=== PATIENT | female | born 1990 | race Caucasian/White ===

== ENCOUNTER → 2018-04-27 11:31 | Outpatient (CLI) | payer MEDICAID, BC, SELFPAY | PROVIDERS: Family Provider Family Medicine; PCP Family Medicine; Referring Provider Family Medicine; Visit Provider Family Medicine | DX: R00.2 Palpitations (principal) | CPT/HCPCS: 93225; 93226 ==

== ENCOUNTER → 2020-10-31 | Outpatient (CLI) | payer BC, SELFPAY ==
[2020-02-29 14:49] VITALS: BMI 20.1
[2020-10-31 09:00] LABS: D-Dimer Quantitative (DVT/PE) <= 0.27 FEU/ug/m (0.27-0.49)
== END | disposition home or self-care (01) ==
LOC: LABSPEC 08:37
PROVIDERS: PCP Family Medicine; Visit Provider Family Medicine
DX: R07.9 Chest pain, unspecified (principal)
CPT/HCPCS: 85379

== ENCOUNTER → 2021-01-17 12:47 | Outpatient (CLI) | payer BC, SELFPAY ==
[2021-01-17 10:44] VITALS: BMI 20.1
[2021-01-18 20:11] LABS: Chlamydia By Nucleic Acid AMP Negative (Negative)
[2021-01-19 08:24] LABS: Gonococcus By Nucleic Acid AMP Negative (Negative)
== END ==
PROVIDERS: PCP Family Medicine; Visit Provider Obstetrics & Gynecology
DX: Z34.90 Encounter for supervision of normal pregnancy, unspecified, unspecified trimester (principal); Z11.3 Encounter for screening for infections with a predominantly sexual mode of transmission
CPT/HCPCS: 87086; 87088; 87491; 87591

== ENCOUNTER → 2021-02-08 | Outpatient (CLI) | payer BC, SELFPAY ==
[2021-02-08 11:44] VITALS: BMI 20.1
[2021-02-08 15:07] LABS: Amphetamine Urine VISTA NEGATIVE (<1000 ng/mL); Barbiturate Urine VISTA NEGATIVE (< 200 ng/mL); Benzodiazepine Urine VISTA NEGATIVE (< 200 ng/mL); Cocaine Urine VISTA NEGATIVE (< 300 ng/mL); Ecstacy Urine VISTA NEGATIVE (< 500 ng/mL); Methadone Urine VISTA NEGATIVE (< 300 ng/mL); PCP Urine VISTA NEGATIVE (< 25 ng/mL); THC Urine VISTA NEGATIVE (< 50 ng/mL); Vista UDS pH Range 5
== END | disposition home or self-care (01) ==
LOC: LABSPEC 13:59
PROVIDERS: PCP Family Medicine; Referring Provider Obstetrics & Gynecology; Visit Provider Obstetrics & Gynecology
DX: Z34.90 Encounter for supervision of normal pregnancy, unspecified, unspecified trimester (principal)
CPT/HCPCS: 80307

== ENCOUNTER → 2021-02-14 07:57 | Outpatient (CLI) | payer BC, SELFPAY ==
[2021-02-08 11:44] VITALS: BMI 20.1
[2021-02-14 09:00] LABS: NATERA MAILED SPECIMEN
== END ==
PROVIDERS: PCP Family Medicine; Referring Provider Obstetrics & Gynecology; Visit Provider Obstetrics & Gynecology
DX: Z34.81 Encounter for supervision of other normal pregnancy, first trimester (principal); Z31.430 Encounter of female for testing for genetic disease carrier status for procreative management
CPT/HCPCS: 36415

== ENCOUNTER → 2021-02-23 07:54 | Outpatient (CLI) | payer BC, SELFPAY ==
[2021-02-14 08:24] VITALS: BMI 20.1
--- NOTE | 2021-02-23 07:55 | US_ITS ---
STUDY: ABDOMINAL ULTRASOUND REASON FOR EXAM: Female, 31 years old. Intermittent right upper quadrant and left upper quadrant pain. TECHNIQUE: Transabdominal ultrasound was performed with real-time and static lucia scale imaging. TECHNICAL QUALITY: Adequate. COMPARISON: None. FINDINGS: Liver: The liver measures 13.2 cm. There is increased echogenicity consistent with fatty infiltration. The bile ducts are within normal limits. There is hepatic color flow. The direction of portal flow is hepatopetal. There is no demonstrated mass lesion. Portal vein measurement: Gallbladder: Normal distended gallbladder. The gallbladder wall measures 2.3 mm. There is a negative sonographic Ramírez''s sign. There is no pericholecystic fluid. There are no gallstones. Common Bile Duct (C.B.D.): The common bile duct measures 2.6 mm. Pancreas: Normal size of the head, body and tail of the pancreas. There is normal echogenicity of the pancreas. There is no demonstrated pancreatic mass or cyst. Spleen: Normal size of the spleen. The spleen measures 8.1 cm x 3.77 x 3.5 cm. Right Kidney: Normal size of the right kidney. The right kidney measures 10.3 cm x 5.5 cm x 4.1 cm. Normal renal cortex. The right cortex measures 1.5 cm. There is no demonstrated renal mass or cyst. There is no right hydronephrosis. Left Kidney: Normal size of the left kidney. The left kidney measures 11 cm x 4.2 cm x 4.6 cm. Normal renal cortex. The left cortex measures 1.7 cm. There is no demonstrated renal mass or cyst. There is no left hydronephrosis. Aorta: Unremarkable I.V.C.: The IVC is patent. There is no ascites. US/Abdomen Complete IMPRESSION: Diffuse fatty infiltration of the liver. Electronically Signed: Dell Anna MD at 12:56 EDT , Service support ,
== END ==
PROVIDERS: PCP Family Medicine; Referring Provider Obstetrics & Gynecology; Visit Provider Obstetrics & Gynecology
DX: R10.9 Unspecified abdominal pain (principal)
CPT/HCPCS: 76700

== ENCOUNTER → 2021-03-02 15:17 | Outpatient (CLI) | payer BC, SELFPAY ==
[2021-03-02 15:42] LABS: Absolute Lymphocyte Count 1.55 X10^3/uL (0.83-4.51); Absolute Neutrophil Count 6.4 X10^3/uL (2.0-7.7); Basophil# 0.02 X10^3/uL; Basophil% 0.2 % (0-1); Eosinophil# 0.05 X10^3/uL; Eosinophils% 0.6 % (0-5); Hematocrit 36.1 % (37-47); Lymphocyte # 1.55 X10^3/ul (0.83-4.51); Lymphocyte % 18.2 % (19-41); Mean Corp Hgb Conc 30.5 g/dL (32-36); Mean Corpuscular Hgb 24.1 pg (27.0-32.0); Mean Corpuscular Volume 79.2 fL (81-99); Mean Platelet Vol. 9.8 fl (6.2-12.0); Monocyte# 0.49 X10^3/uL; Monocyte% 5.7 % (0-10); NRBC Flagged by Analyzer 0 % (0-5); Neutrophil # 6.38 X10^3/uL (2.7-7.7); Neutrophil % 74.8 % (47-70); Platelet Count 310 K/mm3 (150-450); RBC Distribution Width CV 14.7 % (11.6-14.6); RBC Distribution Width SD 42.4 fl (35.1-43.9); Red Blood Count 4.56 M/mm3 (4.2-5.4); White Blood Count 8.5 K/mm3 (4.4-11.0)
[2021-03-02 16:00] LABS: ALB/GLOB Ratio 0.7 RATIO (0.9-2.4); AST(SGOT) 15 U/L (15-37); Alanine Aminotransfer ALT/SGPT 15 U/L (13-56); Alkaline Phosphatase 50 U/L (45-117); Anion Gap 5 (5-15); BUN 7 mg/dL (7-18); BUN/Creat Ratio 11.8 RATIO (10-20); Calcium,Total 8.9 mg/dL (8.5-10.1); Chloride 106 mmol/L (98-107); EST Glomerular Filtration Rate 125 mL/min (>60); Est Glom Filt Rate - Afr Amer 151 mL/min (>60); Globulin 4.4 g/dL (2.2-4.2); Glucose 105 mg/dL (74-106); Potassium 4.1 mmol/L (3.5-5.1); Protein, Total 7.4 g/dL (6.4-8.2); Sodium Level 136 mmol/L (136-145)
[2021-03-03 09:39] LABS: HIV - WCH Non-Reactive (Nonreactive); Hepatitis B Surface Antigen Non-Reactive (Nonreactive); Hepatitis C Antibody Non-Reactive (Nonreactive); Rubella IgG Reactive (Nonreactive); Syphilis Antibodies Non-reactive
== END ==
PROVIDERS: Obstetrics & Gynecology; PCP Family Medicine; Referring Provider Obstetrics & Gynecology; Visit Provider Obstetrics & Gynecology
DX: Z34.90 Encounter for supervision of normal pregnancy, unspecified, unspecified trimester (principal); R10.2 Pelvic and perineal pain
CPT/HCPCS: 36415; 80053; 85025; 86703; 86762; 86780; 86803; 86850; 86900; 86901; 87340

== ENCOUNTER → 2021-04-12 13:43 | Outpatient (CLI) | payer BC, SELFPAY ==
--- NOTE | 2021-04-12 13:45 | US_ITS ---
STUDY: SECOND AND THIRD TRIMESTER OBSTETRICAL ULTRASOUND REASON FOR EXAM: Female, 31 years old. Anatomy. LMP: 11/24/2020. TECHNIQUE: Transabdominal TECHNICAL QUALITY: Adequate. PRIOR ULTRASOUND: None. FINDINGS: There is a single intrauterine fetus. The fetus is in a cephalic presentation. There is demonstrated cardiac activity with a heart rate of 134 bpm. There is a normal amniotic fluid volume. The largest amniotic fluid pocket measures 5.7 cm. The placenta is fundal and posterior and not low lying. There are Grade 0 placental changes. The cervix measures 3.9 cm in length. The bilateral adnexal regions are normal. BIOMETRY: BPD: 5.0 cm: 21 weeks, 1 days HC: 17.68 cm: 20 weeks, 1 days AC: 14.88 cm: 20 weeks, 1 days FL: 3.22 cm: 20 weeks, 0 days CI: 86.06 FL/BPD: 64.36 FL/HC: 18.2 FL/AC: 21.6 HC/AC: 1.19 age by current US: 20 weeks, 0 days. ROSE by current US: 08/30/2021.. Estimated weight: 341 grams, +/- 51 grams, 67 %. Age by LMP: 19 weeks, 6 days. ROSE by LMP: 08/31/2021. ANATOMY: Gender: Female Cranium: Normal lateral ventricles. Normal choroid plexus. Normal cerebellum. Normal cisterna magna. Normal face, nose and lips. Chest: Normal 4-chamber heart. Abdomen/Pelvis: Normal diaphragm. Normal stomach. Normal abdominal wall. Normal cord insertion. Normal 3 vessel cord. Normal kidneys. Normal bladder. Spine: Normal cervical spine. Normal thoracic spine. Normal lumbar spine. Normal sacrum. Extremities: Normal bilateral upper extremities. Normal bilateral lower extremities. US/OB Anatomy Scan IMPRESSION: 1. Live single intrauterine at 20 weeks, 0 days. ROSE is 01/27/2022. 2. EFW 341 g. 3. Adequate amniotic fluid. 4. Frontal and posterior grade 0 placenta. 5. VERTEX presentation. 6. No visualized anatomic abnormality. Electronically Signed: Jose M Cruz DO at 23:54 EDT Tel [phone], Service support ,
== END ==
PROVIDERS: PCP Family Medicine; Referring Provider Obstetrics & Gynecology; Visit Provider Obstetrics & Gynecology
DX: Z34.92 Encounter for supervision of normal pregnancy, unspecified, second trimester (principal)
CPT/HCPCS: 76805

== ENCOUNTER 2021-05-23 17:15 | Outpatient (CLI) | payer BC, SELFPAY ==
[2021-05-23 17:29] VITALS: BP 113/61; PULSE 82; TEMP 36.6
[2021-05-23 17:30] VITALS: BMI 29.3
--- NOTE | 2021-06-21 08:29 | OB.TRI.HP_ITS ---
HPI - General HPI Narrative DEMARCUS TAMEZ, is a 31 F who presents on 05/23/2021 or jun at 25 weeks gestation. Maternal Data Information ROSE Calculator Estimated Delivery Date Method Current WG Current Estimate 08/31/21 LMP (Certain) 29w 6d PFSH PFS Medical History (Updated 06/21/21 @ 08:[address] Carmelita Weeks, DO) Abnormal glucose Anemia Home Medications prenat.vits,bharati,ufa-tcht-scdvl 1 tab PO DAILY 01/11/21 [History Last Taken Unknown] promethazine 12.5 mg tablet 12.5 mg PO Q6H PRN #30 tab 01/11/21 [Rx Last Taken Unknown] ondansetron 4 mg disintegrating tablet 4 mg PO Q8H PRN #30 tab 01/17/21 [Rx Last Taken Unknown] lidocaine 5 % topical patch 1 patch TOPICAL DAILY #30 ea 03/07/21 [Rx Last Taken Unknown] docusate sodium 100 mg capsule 100 mg PO BID #60 cap 06/08/21 [Rx Last Taken Unknown] Allergy/AdvReac Type Severity Reaction Status Date / Time Penicillins Allergy Unknown Verified 06/08/21 13:46 Family History Mother Hypertension Father Diabetes Surgical History History of colposcopy Social History adopted: No household members: spouse and children number of children: 1 pets and animals: Yes (no litter box) pets and animals: cat(s) Smoking Status: Never smoker alcohol intake: never substance use type: does not use History 2 Elective abortions Hx Para 1 Spontaneous abortions Hx # Term Pregnancies Ectopic pregnancies Hx # Pregnancies 1 Multiple births # of living children 1 Past Pregnancies Del. Date Name GA/Weeks Outcome Route Bth Weight Infant Gen Labor Lgth Anesthesia Del Locatn Provider FOB 04/30/08 Shlomo 36 live - 6# Male epidural [facility] Taye Delivery Date: 04/30/08 Induced to preeclampsia, teen Cassidy Aguirre Visit Details Expected Delivery Route/Plan Labor Preferences- labor support person: [] labor intervention preferences: [] pain management options preferred: [] cut cord/dad catch: [] : [] PP control planned: [] discussed possible routes of delivery and associated risks: [] special requests: [] Plans covid status: non immune, counseled regarding risk of covid in vs vaccination and declined vaccination flu vaccine: declined tdap vaccine: [] rhogam: [] LARC form signed: [] Problem list reviewed and updated with the most current plan of care details and appropriate orders placed. Relevant counseling for the gestational age provided. Continue routine care and follow up unless otherwise noted in visit notes/problem list details OB Flowsheet Initial Weight: Not Recorded Date -?-?-?-?-?-?-?-?-?-?-?-?- EGA Weight BP Urine Prot -?-?-?-?-?-?-?-?-?-?-?-?- Glucose FHR FuHt Pres Dilation -?-?-?-?-?-?-?-?-?-?-?-?- Effaced St Visit Note 01/17/21 -?-?-?-?-?-?-?-?-?-?-?-?- 7w 5d 136 lb 106/74 -?-?-?-?-?-?-?-?-?-?-?-?- 160 -?-?-?-?-?-?-?-?-?-?-?-?- GP - CRL 13mm co nsistent with LMP. 02/08/21 -?-?-?-?-?-?-?-?-?-?-?-?- 10w 6d 136 lb 118/80 -?-?-?-?-?-?-?-?-?-?-?-?- 160 -?-?-?-?-?-?-?-?-?-?-?-?- -work in [employer] for discharge but states that she is here for cramping and nausea and having difficulty going to work. States issue with FMLA. Has 3 days prior to first visit here not covered and afraid of loss of job. She is worried that baby is not ok with cramping. Brief US active live IUP FHT 160. Denies vaginal bleeding. Note for work LMP and when sx can start which should help with job. Discussed nausea management. Declines 3rd rx. Is keeping fluids and food down. 02/14/21 -?-?-?-?-?-?-?-?-?-?-?-?- 11w 5d 139 lb 110/60 Negative -?-?-?-?-?-?-?-?-?-?-?-?- Negative 160 -?-?-?-?-?-?-?-?-?-?-?-?- -live IUP on U S. Nausea better. No VB,LOF. NIPT done, PNL omitted, enc redraw today. -live IUP on US. Nausea b emelia. No VB,LOF. NIPT done, PNL omitted, enc redraw today. start ASA 03/07/21 -?-?-?-?-?-?-?-?-?-?-?-?- 14w 5d 138 lb 6 oz 126/78 -?-?-?-?-?-?-?-?-?-?-?-?- 160 -?-?-?-?-?-?-?-?-?-?-?-?- GP - work in for RUQ pain. Has had nl labs. RUQ US showed fatty liver. On exam has point tenderness over rib. Discussed likely musculoskeletal. Encouraged conservative measures. GP - work in for RUQ pain. H as had nl labs. RUQ US showed fatty liver. On exam has point tenderness over rib. Discussed likely musculoskeletal. Encouraged conservative measures. Encouraged FU w/PCP 03/16/21 -?-?-?-?-?-?-?-?-?-?-?-?- 16w 0d 140 lb 100/62 Negative -?-?-?-?-?-?-?-?-?-?-?-?- Negative 150 -?-?-?-?-?-?-?-?-?-?-?-?- SM- nausea with some improve ment, still having RUQ pain after standing. discussed chiropractor evaluation. PT referral 04/06/21 -?-?-?-?-?-?-?-?-?-?-?-?- 19w 0d 146 lb 4 oz 118/74 Trac e -?-?-?-?-?-?-?-?-?-?-?-?- Negative 155 -?-?-?-?-?-?-?-?-?-?-?-?- GP - work in for syncopal episodes and continued pain. 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 Discussed can take FMLA, but only able to last 12w which could result in no maternity leave or termination. Plan to start FMLA now 04/13/21 -?-?-?-?-?-?-?-?-?-?-?-?- 20w 0d 147 lb 6 oz 120/76 -?-?-?-?-?-?-?-?-?-?-?-?- 145 -?-?-?-?-?-?-?-?-?-?-?-?- GP - no ctx, LOF , VB, DFM. Anatomy done yesterday and was normal. No longer having full syncopal episodes but still having presyncope. Offered cardiology but would like to monitor a little longer to see if improves 05/10/21 -?-?-?-?-?-?-?-?-?-?-?-?- 23w 6d 160 lb 124/60 Negative -?--?-?-?-?-?-?-?-?-?-?-?- Negative 154 -?-?-?-?-?-?-?-?-?-?-?-?- MH-No Vb, LOF. G ood FM. STruggling with low back/sciatica pain. Saw chiro wo benefit. Declines PT. baby doesn't like her to wear belly band. Discussed stretching. Reviewed GCT testing/many questions. Declines flu vaccine 05/23/21 -?-?-?-?-?-?-?-?-?-?-?-?- 25w 5d 160 lb 7.944 oz 113/61 -?-?-?-?-?-?-?-?-?-?-?-?- -?-?-?-?-?-?-?-?-?-?-?-?- 06/08/21 -?-?-?-?-?-?-?-?-?-?-?-?- 28w 0d 112/80 -?-?-?-?-?-?-?-?-?-?-?-?- 160 29 -?-?-?-?-?-?-?-?-?-?-?-?- SM- no vb lof go od fm no regular ctx co constipation- colace ordered, didn't get blood drawn due to no butterfly needle, will rescedule ROS Constitutional Constitutional: Reports systems reviewed and no addt'l complaints, except as documented Gastrointestinal Gastrointestinal: Denies bloating, constipation, cramping, diarrhea, nausea or vomiting Genitourinary Genitourinary: Reports other Details: Denies vaginal odor, vaginal bleeding, or vaginal discharge ; Denies difficulty urinating or flank pain Physical Exam HEENT normocephalic Resp normal respiratory effort and normal air movement no CVA tenderness Extremity normal to inspection General Extremity: edema bilateral (trace ) NST FHR Rate Baby A Baseline: 140 Variability:: Moderate Accelerations:: 15 x 15 and 10 x 10 Decelerations:: None NST Reactive:: Yes FHR Category:: Category I Assessment & Plan (1) Decreased movement: PLAN: Patient presents for triage evaluation secondary to decreased movement FHT: Moderate variability reactive no decelerations category I tracing [place]: no Contractions Assessment and plan: Reactive NST for gestational age , reassuring maternal and status patient discharged to home to follow-up. See problem list details for additional plan information. Charges/Coding Multi Select Codes Visit Charges Office Visit/Consults: 33887 OV L3 Est Urinary/Genital Urinary/Genital CPT Codes: 16415-52 non-stress test Interp
== END 2021-05-23 18:15 | disposition home or self-care (01) ==
LOC: WPOUT 17:21 → WP 17:22
PROVIDERS: Visit Provider Obstetrics & Gynecology
DX: O36.8120 Decreased fetal movements, second trimester, not applicable or unspecified (principal); Z3A.25 25 weeks gestation of pregnancy
CPT/HCPCS: 59025; 59050; 99218; G0378

== ENCOUNTER 2021-06-13 19:14 | Emergency (ER) | payer BC, SELFPAY ==
[2021-06-13 19:15] VITALS: BP 115/78; PULSE 116; RESP 20; TEMP 36.1; O2SAT 99; BMI 30.2
--- NOTE | 2021-06-13 19:40 | EDS_ITS ---
HPI HPI - GI History of Present Illness Chief Complaint: Constipation Informant: patient Abdominal Pain/Flank Pain Onset: Days Context: Gradual Onset Timing: Continuous Current Severity: Mild Maximum Severity: Mild Nausea/Vomiting/Emesis GI Symptom: Negative for Nausea and Vomiting Diarrhea/Melena/Hematochezia GI Symptom: Negative for Diarrhea, Melena and Hematochezia Associated Symptoms Associated Symptoms: Negative for Dysuria, Frequency, Hematuria and Urgency Narrative Narrative: 31-year-old female Ab0 currently 28 weeks and 5 days . Last 2 weeks has had significant constipation a point where she is really not having any bowel movements at all. Denies any pain. No fever no dysuria no vaginal bleeding. She has tried magnesium citrate today at home without relief she is tried MiraLAX she is tried suppositories and this has not had any results. Says never had a history of problems with constipation in the past. She denies any prior abdominal surgeries. Prior similar symptoms: No Recent Illness/Hospitalization: No PFSH PFSH Medical History Anemia Home Medications prenat.vits,bharati,aom-[id number]-[id number] 1 tab PO DAILY 01/11/21 [History Last Taken Unknown] promethazine 12.5 mg tablet 12.5 mg PO Q6H PRN #30 tab 01/11/21 [Rx Last Taken Unknown] ondansetron 4 mg disintegrating tablet 4 mg PO Q8H PRN #30 tab 01/17/21 [Rx Last Taken Unknown] lidocaine 5 % topical patch 1 patch TOPICAL DAILY #30 ea 03/07/21 [Rx Last Taken Unknown] docusate sodium 100 mg capsule 100 mg PO BID #60 cap 06/08/21 [Rx Last Taken Unknown] Allergy/AdvReac Type Severity Reaction Status Date / Time Penicillins Allergy Unknown Verified 06/08/21 13:46 Family History Mother Hypertension Father Diabetes Surgical History History of colposcopy Social History adopted: No household members: spouse and children number of children: 1 pets and animals: Yes (no litter box) pets and animals: cat(s) Smoking Status: Never smoker alcohol intake: never substance use type: does not use ROS ROS ED ROS Narrative Constipation. Review of Systems ROS Unobtainable: Denies due to encephalopathy Constitutional Constitutional ED: Denies fever(s) ENT ENT ED: Denies ear pain Cardiovascular Cardiovascular: Denies chest pain Gastrointestinal Gastrointestinal: Reports constipation; Denies abdominal pain, diarrhea, melena, nausea or vomiting Genitourinary Genitourinary ED: Denies dysuria Musculoskeletal Musculoskeletal: Denies myalgias Integumentary Denies rash Neurologic Neurologic: Denies headache(s) Psychiatric Psychiatric: Denies depression Endocrine Endocrinology: Denies polyuria Hematologic/Lymphatic Hematologic/Lymphatic: Denies easy bruising Allergic/Immunologic Allergic/Immunologic ED: Denies urticaria EXAM Physical Exam Narrative Exam Narrative: 31-year-old female with constipation. Exam benign. No peritoneal signs. Positive bowel sounds. Extremities nontender no edema. Otherwise exam unremarkable. Const Vital Signs: 06/13/21 19:15 06/13/21 19:47 Temperature 97 F L Temperature Source Temporal Pulse Rate 116 H Respiratory Rate 20 H 18 Blood Pressure 115/78 Blood Pressure Mean 90 Pulse Ox 99 Oxygen Delivery Method Room Air Positive well nourished and well developed; Negative for obese, cachectic, contractures or unkempt General Appearance ED: well developed and NAD; Negative for unkempt, cachectic, contractures or pallor Nutritional Appearance: Negative for cachectic or obese HEENT Reports moist mucous membranes normocephalic and atraumatic Eyes PERRL and EOMs intact bilaterally Neck no lymphadenopathy, supple and no JVD General: Negative for tenderness Resp normal respiratory effort and clear to auscultation bilaterally Auscultation: Negative for rales, rhonchi or wheezes Cardio regular rate, regular rhythm, S1 normal heart sound, S2 normal heart sound and no murmurs GI non-tender, non-distended and no masses GI Narrative: Gravid nontender uterus. Auscultation: normoactive bowel sounds Palpation: soft; Negative for tender, guarding or rigid Back/Spine no CVA tenderness General Back: Negative for CVA tenderness Extremity full ROM General Extremety ED: Negative for edema or tenderness General Extremity: Negative for edema Neuro moves all extremities Sensorium / Orientation: alert, oriented to person, oriented to place and oriented to time; Negative for confused, lethargic or stuporous Motor Exam: strength 5/5 throughout Psych mental status grossly normal and thought process normal Appearance: Negative for unkempt Skin no wounds General Skin Exam: Negative for jaundice or pallor Lesions: no lesions Rashes: no rashes MDM MDM MDM Narrative Medical decision making narrative: 31-year-old almost 29-week female with constipation. She and I discussed magnesium citrate versus soapsuds enema. She wants to try the soapsuds enema because she has not done any enemas yet at home. Repeat exam she is doing well at 10:10 PM. She is comfortable being discharged home. She had good results with her enema. Her abdomen soft nontender. Her f etal heart tones were 156. She will continue anticonstipation measures at home and follow-up with her [employer] Lab Data Lab results narrative: heart tones equal Discharge Plan Triage Chief Complaint: Constipation ED Provider: Tang Valladares Dx/Rx/DC Orders Clinical Impression: , Constipation Instructions: ED Constipation (Adult) Prescriptions: No Action ondansetron 4 mg tablet,disintegrating 4 mg PO Q8H PRN (Reason: nausea and vomiting) Qty: 30 RF: 3 prenat.vits,bharati,[id number]-[id number]-xoggm Tablet 1 tab PO DAILY RF: 0 lidocaine 5 % adhesive patch,medicated 1 patch topical DAILY Qty: 30 RF: 4 docusate sodium [Colace] 100 mg capsule 100 mg PO BID Qty: 60 RF: 3 promethazine 12.5 mg tablet 12.5 mg PO Q6H PRN (Reason: nausea and vomiting) Qty: 30 RF: 2 Primary Care Provider: Care Physician,Leslie Primary Referrals: Gaby Trimble MD [STAFF PHYSICIAN] - 3-5 Days if not improving Activity Restrictions/Additional Instructions: Plenty of fluids, fiber, prune juice and walking. These will help with constipation. Follow-up with your [employer] as needed. Disposition Disposition: Home, Self Care
[2021-06-13 19:47] VITALS: RESP 18
[2021-06-13 22:22] VITALS: BP 124/63; PULSE 91; RESP 18; O2SAT 97
== END 2021-06-13 22:23 | disposition home or self-care (01) ==
PROVIDERS: Emergency Provider Emergency Medicine
DX: O26.893 Other specified pregnancy related conditions, third trimester (principal); K59.00 Constipation, unspecified; Z3A.28 28 weeks gestation of pregnancy
CPT/HCPCS: 99284

== ENCOUNTER → 2021-06-15 10:39 | Outpatient (CLI) | payer BC, SELFPAY ==
[2021-06-15 11:13] LABS: Absolute Lymphocyte Count 1.72 X10^3/uL (0.83-4.51); Absolute Neutrophil Count 8.1 X10^3/uL (2.0-7.7); Basophil# 0.02 X10^3/uL; Basophil% 0.2 % (0-1); Eosinophil# 0.07 X10^3/uL; Eosinophils% 0.7 % (0-5); Hematocrit 29.1 % (37-47); Hemoglobin 8.8 g/dL (12.0-15.0); Lymphocyte # 1.72 X10^3/ul (0.83-4.51); Lymphocyte % 16.3 % (19-41); Mean Corp Hgb Conc 30.2 g/dL (32-36); Mean Corpuscular Hgb 22.2 pg (27.0-32.0); Mean Corpuscular Volume 73.3 fL (81-99); Monocyte# 0.58 X10^3/uL; Monocyte% 5.5 % (0-10); NRBC Flagged by Analyzer 0.3 % (0-5); Neutrophil # 8.12 X10^3/uL (2.7-7.7); Neutrophil % 76.8 % (47-70); Platelet Count 299 K/mm3 (150-450); RBC Distribution Width CV 15.9 % (11.6-14.6); RBC Distribution Width SD 41.1 fl (35.1-43.9); Red Blood Count 3.97 M/mm3 (4.2-5.4); White Blood Count 10.6 K/mm3 (4.4-11.0)
[2021-06-15 11:43] LABS: Glucose Challenge Gest 1H 50g 161 mg/dL (70-140)
== END ==
PROVIDERS: Referring Provider Obstetrics & Gynecology; Visit Provider Obstetrics & Gynecology
DX: O09.90 Supervision of high risk pregnancy, unspecified, unspecified trimester (principal); Z13.1 Encounter for screening for diabetes mellitus; Z3A.00 Weeks of gestation of pregnancy not specified
CPT/HCPCS: 36415; 82950; 85025

== ENCOUNTER → 2021-06-22 07:04 | Outpatient (CLI) | payer BC, SELFPAY ==
[2021-06-22 08:44] LABS: Glucose GTT-Gestation. Fasting 80 mg/dL (<105)
[2021-06-22 09:47] LABS: Glucose GTT-Gestational 1 Hr 157 mg/dL (<190)
[2021-06-22 10:26] LABS: Glucose GTT-Gestational 2 Hr 143 mg/dL (<165)
[2021-06-22 11:28] LABS: Glucose GTT-Gestational 3 Hr 106 L (<145)
== END ==
PROVIDERS: Referring Provider Obstetrics & Gynecology; Visit Provider Obstetrics & Gynecology
DX: Z13.1 Encounter for screening for diabetes mellitus (principal)
CPT/HCPCS: 36415; 82951; 82952

== ENCOUNTER 2021-08-03 14:42 | Outpatient (CLI) | payer BC, SELFPAY ==
[2021-08-03] VITALS (7 sets, daily range): BP systolic 123–135; BP diastolic 69–88; PULSE 83–89; TEMP 36.8; BMI 33.8
[2021-08-03 15:34] LABS: Protein, Urine (Random) 28.2 mg/dL (<11.9); Protein:Creat Ratio 312 mg/g CRE (0-200)
--- NOTE | 2021-08-03 16:00 | US_ITS ---
STUDY: SECOND AND THIRD TRIMESTER OBSTETRICAL ULTRASOUND REASON FOR EXAM: Female, 31 years old Growth US -- 36 weeks r/o pre e TECHNIQUE: Transabdominal PRIOR ULTRASOUND: 04/12/2021 FINDINGS: There is a single intrauterine fetus. The fetus is in a cephalic presentation. There is demonstrated cardiac activity with a heart rate of 134 bpm. There is a normal amniotic fluid volume. The largest amniotic fluid pocket measures 5.8 cm. The amniotic fluid index (NIMESH) is 10.5 cm. The placenta is fundal. There are Grade 2 placental changes. BPD: 9 cm = 36 weeks, 5 day(s) HC: 32.7 cm = 37 weeks, 1 day(s) AC: 33 cm = 37 weeks, 0 day(s) FL: 7.4cm = 38 weeks, 0 day(s) EGA by ultrasound: 37 weeks 2 day(s) ROSE by ultrasound: 08/22/2021 Estimated weight: 3130 grams Weight percentile: 81% US/OB Limited With Biometrics IMPRESSION: Living intrauterine with estimated gestational age of 37 weeks and 2 days. Electronically Signed: Vasquez Valentine MD at 21:18 EST ,
[2021-08-03] MEDS: Betamethasone/Betamethasone 30 MG/5 ML Vial 12 MG IM (16:31)
[2021-08-03 16:54] LABS: Hematocrit 31.2 % (37-47); Mean Corp Hgb Conc 28.8 g/dL (32-36); Mean Corpuscular Hgb 22.2 pg (27.0-32.0); Mean Corpuscular Volume 76.8 fL (81-99); Mean Platelet Vol. 10.6 fl (6.2-12.0); POSITIVE MORPHOLOGY YES; Platelet Count 256 K/mm3 (150-450); RBC Distribution Width CV 25.7 % (11.6-14.6); RBC Distribution Width SD 67.6 fl (35.1-43.9); Red Blood Count 4.06 M/mm3 (4.2-5.4)
--- NOTE | 2021-08-03 16:59 | OB.TRI.PN_ITS ---
Progress Notes Date of Service: 08/03/21 Progress Note: Patient presents for triage evaluation secondary to elevated bp in office FHT: 130 Moderate variability reactive no decelerations category I tracing [place]: no regualr Contractions Assessment and plan: proteinuria , repeat bps WNL, labs WNL. growth us done. celestone given. fu in 48 hrs for repeat dose. Reactive NST, reassuring maternal and status patient discharged to home to follow-friday in office. See problem list details for additional plan information. Laboratory Studies: Laboratory Tests 08/03/21 08/03/21 Range/Units 16:35 15:13 WBC 7.0 (4.4-11.0) K/mm3 RBC 4.06 L (4.2-5.4) M/mm3 Hgb 9.0 L (12.0-15.0) g/dL Hct 31.2 L (37-47) % MCV 76.8 L (81-99) fL MCH 22.2 L (27.0-32.0) pg MCHC 28.8 L (32-36) g/dL RDW Std Deviation 67.6 H (35.1-43.9) fl RDW Coeff of Sin 25.7 H (11.6-14.6) % Plt Count 256 (150-450) K/mm3 MPV 10.6 (6.2-12.0) fl U Random Total Protein 28.2 H (<11.9) mg/dL Urine Creatinine 90.50 (NO RANGE EST.) mg/dL Protein/Creatinin Ratio 312 H (0-200) mg/g CRE Charges/Coding Procedures Urinary/Genital 52xxx-59xxx: 74132-60 non-stress test Interp Assessment & Plan (1) Proteinuria affecting : COMMENT: WP celestone and growth u/s per SM, cbc, cmp Ur prt/crea (312) (2) Abnormal glucose: COMMENT: nml 3 hr GTT (3) Syncope: COMMENT: Patient with multiple syncopal episodes at work in spite of adequate food and water intake. 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 Aware only gets 12w of FMLA and may lose employment - voices understanding. Still having near syncopal episodes - offered cardiology but would like to monitor until next visit. (4) History of colposcopy: COMMENT: [facility] pap 04/2020 pos HPV, neg pap. Neg colp wo bx per RR at [facility] 05/2020 (5) HPV test positive: COMMENT: 04/2020 [facility], record scanned (6) Thyroid nodule: COMMENT: Recent dx: normal labs. did not get US of thyroid done. (7) Anemia: QUALIFIERS: Iron deficiency anemia type: unspecified iron deficiency COMMENT: last labs WNL, 06/15 labs low, add supplement and repeat CBC 4 wks. declines prescription iron and iron infusion. on OTC iron supplementation, discussed risk of transfusion at , patient to consider (8) History of pre-eclampsia in prior , currently : COMMENT: teen and induced at 36 wks, recommend baby aspirin, baseline preE labs ordered at new OB (9) : QUALIFIERS: Weeks of gestation: 36 weeks Qualified Code(s): Z3A.36 - 36 weeks gestation of COMMENT: anatomy nl, NIPT- low risk female, declines carrier (10) Supervision of high risk , antepartum: COMMENT: PRR ROSE 08/31/21 PC:Shlomo Spouse: Jan(his first)
[2021-08-03 17:07] LABS: ALB/GLOB Ratio 0.6 RATIO (0.9-2.4); AST(SGOT) 19 U/L (15-37); Alanine Aminotransfer ALT/SGPT 17 U/L (13-56); Albumin, Serum 2.5 g/dL (3.2-5.0); Alkaline Phosphatase 95 U/L (45-117); Anion Gap 8 (5-15); BUN 6 mg/dL (7-18); BUN/Creat Ratio 9.9 RATIO (10-20); Calcium,Total 8.9 mg/dL (8.5-10.1); Chloride 108 mmol/L (98-107); EST Glomerular Filtration Rate 122 mL/min (>60); Est Glom Filt Rate - Afr Amer 148 mL/min (>60); Estimated Creatinine Clearance 107.45 ml/min; Globulin 3.9 g/dL (2.2-4.2); Glucose 72 mg/dL (74-106); Protein, Total 6.4 g/dL (6.4-8.2); Sodium Level 138 mmol/L (136-145)
[2021-08-03 17:45] LABS: Scan Indicated on CBC? Y/N YES- FLAGS NOTED
[2021-08-03 21:02] LABS: Group B Strep DNA By PCR Negative (Negative); Internal Control PASS; Probe Check PASS; Specimen Processing Control PASS
[2021-08-04 17:06] VITALS: BP 127/74; PULSE 82
== END 2021-08-03 23:59 | disposition home or self-care (01) ==
LOC: WPOUT 14:48 → WP 14:48
PROVIDERS: Visit Provider Obstetrics & Gynecology
DX: O12.13 Gestational proteinuria, third trimester (principal); O99.013 Anemia complicating pregnancy, third trimester; D50.9 Iron deficiency anemia, unspecified; O99.810 Abnormal glucose complicating pregnancy; O99.283 Endocrine, nutritional and metabolic diseases complicating pregnancy, third trimester; E04.1 Nontoxic single thyroid nodule; O09.93 Supervision of high risk pregnancy, unspecified, third trimester; O26.893 Other specified pregnancy related conditions, third trimester; R55 Syncope and collapse; Z3A.36 36 weeks gestation of pregnancy; Z87.59 Personal history of other complications of pregnancy, childbirth and the puerperium
CPT/HCPCS: 96372; 36415; 59025; 59050; 76816; 80053; 82570; 84156; 85027; 87081; 87653; 99218; G0378; J0702

== ENCOUNTER 2021-08-04 16:40 | Outpatient (CLI) | payer BC, SELFPAY ==
--- NOTE | 2021-08-07 14:07 | OB.TRI.PN ---
Progress Notes Date of Service: 08/04/21 Progress Note: celestone given for prematurity. dose 2
== END 2021-08-04 23:59 | disposition home or self-care (01) ==
LOC: WPOUT 18:47 → WP 18:47
PROVIDERS: Visit Provider Obstetrics & Gynecology
DX: O60.00 Preterm labor without delivery, unspecified trimester (principal); Z3A.00 Weeks of gestation of pregnancy not specified
CPT/HCPCS: 96372; J0702

== ENCOUNTER 2021-08-07 12:08 | Inpatient (IN) | payer BC, SELFPAY ==
[2021-08-07] VITALS (40 sets, daily range): BP systolic 115–148; BP diastolic 56–84; PULSE 70–105; RESP 15–20; TEMP 35.9–36.9; O2SAT 97–99; BMI 33.8
--- NOTE | 2021-08-07 12:33 | US_ITS ---
STUDY: SECOND AND THIRD TRIMESTER OBSTETRICAL ULTRASOUND - LIMITED REASON FOR EXAM: Female, 31 years old confirm vertex position LMP: 11/24/2020. PRIOR ULTRASOUND: Comparison is made with prior examination image 2021. TECHNIQUE: Transabdominal TECHNICAL QUALITY: Adequate. FINDINGS: There is a single intrauterine fetus. The fetus is in a cephalic presentation. There is demonstrated cardiac activity with a heart rate of 135 bpm. There is a normal amniotic fluid volume. The largest amniotic fluid pocket measures 3.53 cm. The amniotic fluid index (NIMESH) is 7.2 cm. The placenta is posterior in location and is not low lying. There are Grade 3 placental changes. BIOMETRY: Age by LMP: 36 weeks, 4 days. ROSE by LMP: 08/31/2021. US/OB Limited (No Biometrics) IMPRESSION: Cephalic presentation. Electronically Signed: Dell Anna MD at 14:14 EST ,
--- NOTE | 2021-08-07 13:19 | HP.PCM.OB_ITS ---
HPI - General General Date of Admission: 08/07/21 HPI Narrative DEMARCUS TAMEZ, is a 31 F who presents with MATHIS, and visual changes, preeclampsia with severe features. cervix is closed. she receieved steroids last week for prematurity. Maternal Data Information ROSE Calculator Estimated Delivery Date Method Current WG Current Estimate 08/31/21 LMP (Certain) 36w 4d PFSH PFSH Medical History Abnormal glucose Anemia Home Medications prenat.vits,bhartai,wvt-[id number] 1 tab PO DAILY 01/11/21 [History Last Taken 08/03/21 06:00] aspirin [Baby Aspirin] 81 mg PO DAILY 08/03/21 [History Last Taken 08/03/21 06:00] ferrous sulfate [FerrouSul] 325 mg PO DAILY 08/03/21 [History Last Taken 08/02/21 21:00] Allergy/AdvReac Type Severity Reaction Status Date / Time Penicillins Allergy Unknown Unknown Verified 08/07/21 13:13 Family History Mother Hypertension Father Diabetes Surgical History History of colposcopy Social History adopted: No household members: spouse and children number of children: 1 pets and animals: Yes (no litter box) pets and animals: cat(s) Smoking Status: Never smoker alcohol intake: never substance use type: does not use History 2 Elective abortions Hx Para 1 Spontaneous abortions Hx # Term Pregnancies Ectopic pregnancies Hx # Pregnancies 1 Multiple births # of living children 1 Past Pregnancies Del. Date Name GA/Weeks Outcome Route Bth Weight Infant Gen Labor Lgth Anesthesia Del Locatn Provider FOB 04/30/08 Shlomo 36 live - 6# Male epidural [facility] Delivery Date: 04/30/08 Induced to preeclampsia, teen Cassidy Aguirre Visit Details Expected Delivery Route/Plan Labor Preferences- labor support person: [] labor intervention preferences: [] pain management options preferred: [] cut cord/dad catch: [] : [] PP control planned: [] discussed possible routes of delivery and associated risks: [] special requests: [] Plans covid status: non immune, counseled regarding risk of covid in vs vaccination and declined vaccination flu vaccine: declined tdap vaccine: declined rhogam: na LARC form signed: [] movement and labor precautions reviewed. Problem list reviewed and updated with the most current plan of care details and appropriate orders placed. Relevant counseling for the gestational age provided. Continue routine care and follow up unless otherwise noted in visit notes/problem list details OB Flowsheet Initial Weight: Not Recorded Date -?-?-?-?-?-?-?-?-?-?-?-?- EGA Weight BP Urine Prot -?-?-?-?-?-?-?-?-?-?-?-?- Glucose FHR FuHt Pres Dilation -?-?-?-?-?-?-?-?-?-?-?-?- Effaced St Visit Note 01/17/21 -?-?-?-?-?-?-?-?-?-?-?-?- 7w 5d 136 lb 106/74 -?-?-?-?-?-?-?-?-?-?-?-?- 160 -?-?-?-?-?-?-?-?-?-?-?-?- GP - CRL 13mm co nsistent with LMP. 02/08/21 -?-?-?-?-?-?-?-?-?-?-?-?- 10w 6d 136 lb 118/80 -?-?-?-?-?-?-?-?-?-?-?-?- 160 -?-?-?-?-?-?-?-?-?-?-?-?- MH-work in [employer] for discharge but states that she is here for cramping and nausea and having difficulty going to work. States issue with FMLA. Has 3 days prior to first visit here not covered and afraid of loss of job. She is worried that baby is not ok with cramping. Brief US active live IUP FHT 160. Denies vaginal bleeding. Note for work LMP and when sx can start which should help with job. Discussed nausea management. Declines 3rd rx. Is keeping fluids and food down. 02/14/21 -?-?-?-?-?-?-?-?-?-?-?-?- 11w 5d 139 lb 110/60 Negative -?-?-?-?-?-?-?-?-?-?-?-?- Negative 160 -?-?-?-?-?-?-?-?-?-?-?-?- -live IUP on U S. Nausea better. No VB,LOF. NIPT done, PNL omitted, enc redraw today. -live IUP on US. Nausea b emelia. No VB,LOF. NIPT done, PNL omitted, enc redraw today. start ASA 03/07/21 -?-?-?-?-?-?-?-?-?-?-?-?- 14w 5d 138 lb 6 oz 126/78 -?-?-?-?-?-?-?-?-?-?-?-?- 160 -?-?-?-?-?-?-?-?-?-?-?-?- GP - work in for RUQ pain. Has had nl labs. RUQ US showed fatty liver. On exam has point tenderness over rib. Discussed likely musculoskeletal. Encouraged conservative measures. GP - work in for RUQ pain. H as had nl labs. RUQ US showed fatty liver. On exam has point tenderness over rib. Discussed likely musculoskeletal. Encouraged conservative measures. Encouraged FU w/PCP 03/16/21 -?-?-?-?-?-?-?-?-?-?-?-?- 16w 0d 140 lb 100/62 Negative -?-?-?-?-?-?-?-?-?-?-?-?- Negative 150 -?-?-?-?-?-?-?-?-?-?-?-?- SM- nausea with some improve ment, still having RUQ pain after standing. discussed chiropractor evaluation. PT referral 04/06/21 -?-?-?-?-?-?-?-?-?-?-?-?- 19w 0d 146 lb 4 oz 118/74 Trac e -?-?-?-?-?-?-?-?-?-?-?-?- Negative 155 -?-?-?-?-?-?-?-?-?-?-?-?- GP - work in for syncopal episodes and continued pain. 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 Discussed can take FMLA, but only able to last 12w which could result in no maternity leave or termination. Plan to start FMLA now 04/13/21 -?-?-?-?-?-?-?-?-?-?-?-?- 20w 0d 147 lb 6 oz 120/76 -?-?-?-?-?-?-?-?-?-?-?-?- 145 -?-?-?-?-?-?-?-?-?-?-?-?- GP - no ctx, LOF , VB, DFM. Anatomy done yesterday and was normal. No longer having full syncopal episodes but still having presyncope. Offered cardiology but would like to monitor a little longer to see if improves 05/10/21 -?-?-?-?-?-?-?-?-?-?-?-?- 23w 6d 160 lb 124/60 Negative -?-?-?-?-?-?-?-?-?-?-?-?- Negative 154 -?-?-?-?-?-?-?-?-?-?-?-?- MH-No Vb, LOF. G ood FM. STruggling with low back/sciatica pain. Saw chiro wo benefit. Declines PT. baby doesn't like her to wear belly band. Discussed stretching. Reviewed GCT testing/many questions. Declines flu vaccine 05/23/21 -?-?-?-?-?-?-?-?-?-?-?-?- 25w 5d 160 lb 7.944 oz 113/61 -?-?-?-?-?-?-?-?-?-?-?-?- -?-?-?-?-?-?-?-?-?-?-?-?- 06/08/21 -?-?-?-?-?-?-?-?-?-?-?-?- 28w 0d 112/80 -?-?-?-?-?-?-?-?-?-?-?-?- 160 29 -?-?-?-?-?-?-?-?-?-?-?-?- SM- no vb lof go od fm no regular ctx co constipation- colace ordered, didn't get blood drawn due to no butterfly needle, will rescedule 06/22/21 -?-?-?-?-?-?-?-?-?-?-?-?- 30w 0d 172 lb 4 oz 120/70 Nega tive -?-?-?-?-?-?-?-?-?-?-?-?- Negative 156 30 -?-?-?-?-?-?-?-?-?-?-?-?- JV- normal 3 hr gtt. Pt has hg 8.7 and is declining iron infusion and prescription iron. recommend doubling up on OTC iron, take colace and miralax daily. will rpt cbc in 1 month. lots of questions today. present during exam and somewhat difficult to talk to. JV- normal 3 hr gtt. Pt has hg 8.7 and is declining iron infusion and prescription iron. recommend doubling up on OTC iron, take colace and miralax daily. will rpt cbc in 1 month. lots of questions today answered. 07/05/21 -?-?-?-?-?-?-?-?-?--?-?-?- 31w 6d 175 lb 8 oz 118/80 Nega tive -?-?-?-?-?-?-?-?-?-?-?-?- Negative 145 32 -?-?-?-?-?-?-?-?-?-?-?-?- SM- no vb lof go od fm no reuglar ctx some dizziness, discussed iron therapy oral or IV further. 07/20/21 -?-?-?-?-?-?-?-?-?-?-?-?- 34w 0d 179 lb 179 lb 130/84 Negative -?-?-?-?-?-?-?-?-?-?-?-?- Negative 140 33 Transverse -?-?-?-?-?-?-?-?-?-?-?-?- JV- pt just star johnny iron supplement a week ago. will wait at least 3 weeks before repeating 08/03/21 -?-?-?-?-?-?-?-?-?-?-?-?- 36w 0d 184 lb 152/92 -?-?-?-?-?-?-?-?-?-?-?-?- -?-?-?-?-?-?-?-?-?-?-?-?- to l and d for e erasmo due to elevated bp 08/07/21 -?-?-?-?-?-?-?-?-?-?-?-?- 36w 4d 185 lb 2 oz 146/88 Nega tive -?-?-?-?-?-?-?-?-?-?-?-?- Negative 145 36 Cephalic 0 -?-?-?-?-?-?-?-?-?-?-?-?- 50 -3 JV- pt has visual changes anytime she turns her head she also c/o abdominal pain worse when she eats. sending to l&D for delivery due to pre-e with severe features 08/07/21 -?-?-?-?-?-?-?-?-?-?-?-?- 36w 4d 185 lb 125/82 -?-?-?-?-?-?-?-?-?-?-?-?- -?-?-?-?-?-?-?-?-?-?-?-?- Vital Signs Vital Signs Vital Signs: 08/07/21 13:15 Pulse Rate 74 Blood Pressure 125/82 H BP Systolic 125 BP Diastolic 82 Weight Weight: 185 lb Body Mass Index (BMI) 33.8 Labs Labs Labs: Blood Type A POSITIVE Antibody Screen NEGATIVE Hct 31.2 % (37-47) L Hgb 9.0 g/dL (12.0-15.0) L Pap Smear Negative Obstetrics US Syphilis Total Ab Non-reactive Rubella IgG Antibody Reactive (Nonreactive) Hep Bs Antigen Non-Reactive (Nonreactive) Neisseria gonorrhoeae DNA (GEETA) Negative (Negative) HIV 1&2 Antibody Non-Reactive (Nonreactive) Glucose 1 Hr 50 gm 161 mg/dL (70-140) H Group B Strep DNA Negative (Negative) Assessment & Plan (1) History of colposcopy: COMMENT: CC pap 04/2020 pos HPV, neg pap. Neg colp wo bx per RR at [facility] 05/2020 (2) HPV test positive: COMMENT: 04/2020 [facility], record scanned (3) Thyroid nodule: COMMENT: Recent dx: normal labs. did not get US of thyroid done. (4) Anemia: QUALIFIERS: Iron deficiency anemia type: unspecified iron deficiency COMMENT: last labs WNL, 06/15 labs low, add supplement and repeat CBC 4 wks. declines prescription iron and iron infusion. on OTC iron supplementation, discussed risk of transfusion at , patient to consider (5) History of pre-eclampsia in prior , currently : COMMENT: teen and induced at 36 wks, recommend baby aspirin, baseline preE labs ordered at new OB (6) : QUALIFIERS: Weeks of gestation: 36 weeks Qualified Code(s): Z3A.36 - 36 weeks gestation of COMMENT: GBS neg. anatomy nl, NIPT- low risk female, declines carrier (7) Supervision of high risk , antepartum: COMMENT: PRR ROSE 08/31/21 PC:Shlomo Spouse: Jan(his first) (8) Syncope: COMMENT: Patient with multiple syncopal episodes at work in spite of adequate food and water intake. 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 Aware only gets 12w of FMLA and may lose employment - voices understanding. Still having near syncopal episodes - offered cardiology but would like to monitor until next visit. (9) Abnormal glucose: COMMENT: nml 3 hr GTT (10) Preeclampsia, severe: COMMENT: neurologic features, s/p celestone, plan IOL cytotec then pitocin. epi PRN. labs ordered, magnesium sulfate started
[2021-08-07 14:22] LABS: Protein, Urine (Random) 55.8 mg/dL (<11.9); Protein:Creat Ratio 436 mg/g CRE (0-200)
[2021-08-07] MEDS: Lactated Ringers 1,000 ML 50 ML IV (14:30)
[2021-08-07 14:36] LABS: Absolute Lymphocyte Count 1.66 X10^3/uL (0.83-4.51); Absolute Neutrophil Count 6.2 X10^3/uL (2.0-7.7); Basophil# 0.02 X10^3/uL; Basophil% 0.2 % (0-1); Eosinophil# 0.02 X10^3/uL; Eosinophils% 0.2 % (0-5); Hematocrit 31.7 % (37-47); Hemoglobin 9.4 g/dL (12.0-15.0); Lymphocyte # 1.66 X10^3/ul (0.83-4.51); Lymphocyte % 18.7 % (19-41); Mean Corp Hgb Conc 29.7 g/dL (32-36); Mean Corpuscular Hgb 22.8 pg (27.0-32.0); Mean Corpuscular Volume 76.8 fL (81-99); Mean Platelet Vol. 10.6 fl (6.2-12.0); Monocyte# 0.91 X10^3/uL; Monocyte% 10.2 % (0-10); NRBC Flagged by Analyzer 2.7 % (0-5); Neutrophil # 6.22 X10^3/uL (2.7-7.7); Neutrophil % 69.9 % (47-70); POSITIVE MORPHOLOGY YES; Platelet Count 263 K/mm3 (150-450); RBC Distribution Width SD 68.4 fl (35.1-43.9); Red Blood Count 4.13 M/mm3 (4.2-5.4); White Blood Count 8.9 K/mm3 (4.4-11.0)
[2021-08-07] MEDS: Magnesium Sulfate 4gm/100mL 4 GM/100 ML IV.SOLN. IV (14:40)
[2021-08-07 14:42] LABS: Differential Indicated SCAN CRITERIA MET
[2021-08-07 14:56] LABS: AST(SGOT) 36 U/L (15-37); Alanine Aminotransfer ALT/SGPT 34 U/L (13-56); Creatinine, Serum 0.67 mg/dL (0.55-1.02); EST Glomerular Filtration Rate 109 mL/min (>60); Est Glom Filt Rate - Afr Amer 132 mL/min (>60); Estimated Creatinine Clearance 96.22 ml/min; Uric Acid 6.2 mg/dL (2.6-6.0)
[2021-08-07] MEDS: Magnesium Sulfate 20 GM/500 ML BAG IV (15:03)
[2021-08-07 15:17] LABS: Anisocytosis 1+; Poikilocytosis RARE; Polychromasia RARE
[2021-08-07 15:18] LABS: Microcytosis 1+; Ovalocyte RARE
[2021-08-07] MEDS: miSOPROStol 25 MCG TABLET VAGINAL (15:33)
[2021-08-07] MEDS: Lactated Ringers 1,000 ML 999 ML IV (19:56)
[2021-08-07] MEDS: Oxytocin 30 units/NS 500 ml 30 UNITS/500 ML IV.SOLN IV (22:34)
[2021-08-08] VITALS (84 sets, daily range): BP systolic 84–174; BP diastolic 48–107; PULSE 66–196; RESP 16–20; TEMP 35.9–37.5; O2SAT 88–100
[2021-08-08] MEDS: Magnesium Sulfate 20 GM/500 ML BAG IV (00:40)
[2021-08-08] MEDS: Lactated Ringers 500 ML 999 ML IV ×2 (01:18→03:35)
[2021-08-08] MEDS: 0.9% Saline Lock 10 ML Syringe IV (01:57)
[2021-08-08] MEDS: Ondansetron 4 MG/2 ML Vial IV (01:57)
[2021-08-08] MEDS: fentaNYL-bupivacaine (epidural) 100 ML BAG EPIDURAL ×2 (02:39→06:47)
[2021-08-08] MEDS: Lactated Ringers 1,000 ML 200 ML IV ×2 (05:16→10:35)
--- NOTE | 2021-08-08 05:19 | PN_ITS ---
Progress Note arom clear fluid, persistent low bps after epidural despite fluid intervention, magnesium discontinued. neurologic symptoms resolved from yesterday. current tracing: FHT: 140 minimal to Moderate variability reactive previous episode of intermittnet late decelerations resolved now category I tracing [place]: q 2-5 Contractions reviewed tracing abnormalities since last note: cat II tracing resolved after IVFs and turning off magnesium, improvement in bps. position changes. A/P: continue pit per protocol, comfortable with epidural. monitor bps and neuro symptoms, magnesium held at this time, discussed with patient low risk of seizure, will restart if recurrent neuro symptoms or elevated bps.
[2021-08-08 05:49] LABS: Absolute Lymphocyte Count 1.13 X10^3/uL (0.83-4.51); Absolute Neutrophil Count 10.7 X10^3/uL (2.0-7.7); Basophil# 0.02 X10^3/uL; Basophil% 0.2 % (0-1); Eosinophil# 0.01 X10^3/uL; Eosinophils% 0.1 % (0-5); Hematocrit 30.5 % (37-47); Hemoglobin 9.2 g/dL (12.0-15.0); Lymphocyte # 1.13 X10^3/ul (0.83-4.51); Lymphocyte % 8.7 % (19-41); Mean Corp Hgb Conc 30.2 g/dL (32-36); Mean Corpuscular Hgb 23.2 pg (27.0-32.0); Mean Corpuscular Volume 76.8 fL (81-99); Mean Platelet Vol. 10.3 fl (6.2-12.0); Monocyte# 0.99 X10^3/uL; Monocyte% 7.7 % (0-10); NRBC Flagged by Analyzer 0.8 % (0-5); Neutrophil # 10.68 X10^3/uL (2.7-7.7); Neutrophil % 82.6 % (47-70); POSITIVE MORPHOLOGY YES; Platelet Count 250 K/mm3 (150-450); RBC Distribution Width CV 25.5 % (11.6-14.6); RBC Distribution Width SD 67.7 fl (35.1-43.9); Red Blood Count 3.97 M/mm3 (4.2-5.4); White Blood Count 12.9 K/mm3 (4.4-11.0)
[2021-08-08 05:50] LABS: Differential Indicated SCAN CRITERIA MET
[2021-08-08 06:05] LABS: Differential Comment SCANNED
[2021-08-08 06:06] LABS: Anisocytosis 2+; Hypochromasia 1+; Microcytosis 2+
[2021-08-08 06:09] LABS: ALB/GLOB Ratio 0.6 RATIO (0.9-2.4); AST(SGOT) 32 U/L (15-37); Alanine Aminotransfer ALT/SGPT 33 U/L (13-56); Albumin, Serum 2.5 g/dL (3.2-5.0); Alkaline Phosphatase 99 U/L (45-117); Anion Gap 7 (5-15); BUN 8 mg/dL (7-18); BUN/Creat Ratio 10.6 RATIO (10-20); Calcium,Total 7.7 mg/dL (8.5-10.1); Chloride 104 mmol/L (98-107); Creatinine, Serum 0.75 mg/dL (0.55-1.02); EST Glomerular Filtration Rate 95 mL/min (>60); Est Glom Filt Rate - Afr Amer 115 mL/min (>60); Estimated Creatinine Clearance 85.96 ml/min; Globulin 4.2 g/dL (2.2-4.2); Glucose 104 mg/dL (74-106); Potassium 3.9 mmol/L (3.5-5.1); Protein, Total 6.7 g/dL (6.4-8.2); Sodium Level 135 mmol/L (136-145)
[2021-08-08] MEDS: Amnioinfusion- 0.9% NS 1,000 ML IV.SOLN. 1000 ML INTRA-UTER (07:20)
--- NOTE | 2021-08-08 07:59 | PN_ITS ---
Progress Note pt states that she is feeling anxious. Dr. Trimble was in at 4:45 and ruptured membranes and placed internal monitors. the pitocin was stopped 30 minutes ago due to variable decels. Amnioinfusion was started. current tracing: FHT: 130 baseline Moderate variability reactive no decelerations category I tracing [place]: coupling and tripling of Contractions with 4 min breaks in between cx: 5-6/80/+1 but still posterior reviewed tracing abnormalities since last note: improved A/P: 36 weeks with pre-e with severe features -mag is now off due to a moment of hypotension - ok to restart pit now
[2021-08-08] MEDS: Acetaminophen 500 MG Tablet PO (08:43)
[2021-08-08] MEDS: Oxytocin 30 units/NS 500 ml 30 UNITS/500 ML IV.SOLN 334 UNITS IV (11:45)
--- NOTE | 2021-08-08 12:46 | EX.PCM.OBRPT ---
Assessment & Plan (1) : QUALIFIERS: Weeks of gestation: 36 weeks Qualified Code(s): Z3A.36 - 36 weeks gestation of COMMENT: GBS neg. anatomy nl, NIPT- low risk female, declines carrier (2) Supervision of high risk , antepartum: COMMENT: PRR ROSE 08/31/21 PC:Shlomo Spouse: Jan(his first) (3) Syncope: COMMENT: Patient with multiple syncopal episodes at work in spite of adequate food and water intake. 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 Aware only gets 12w of FMLA and may lose employment - voices understanding. Still having near syncopal episodes - offered cardiology but would like to monitor until next visit. (4) Preeclampsia, severe: COMMENT: neurologic features, s/p celestone, plan IOL cytotec then pitocin. epi PRN. labs ordered, magnesium sulfate started (5) Abnormal glucose: COMMENT: nml 3 hr GTT Maternal Data Information ROSE Calculator Estimated Delivery Date Method Current WG Current Estimate 08/31/21 LMP (Certain) 36w 5d Vaginal Delivery Maternal Presentation Maternal Presentation: Medically Indicated Induction Type of Induction: Cervidil and Pitocin Operative Information Date of Procedure: 08/08/21 Pre-Operative Diagnosis: @ 36 weeks 5 days, pre-eclampsia with severe features Post-Operative Diagnosis: @ 36 weeks 5 days, pre-eclampsia with severe features Type of Anesthesia: Epidural Estimated Blood Loss: 100cc Findings Description of Procedure: Patient began pushing and delivered the head in the EVELYN presentation. The head was delivered atraumatically . The anterior and posterior shoulders delivered without complication followed by the rest of the infant and the infant was placed on the maternal abdomen. Delayed cord clamping was employed for approximately 60 seconds. Cord was clamped and cut and gentle traction was applied to the cord and the placenta delivered spontaneously immediately following it was noted to be intact with three-vessel cord. The perineum and vagina were inspected and noted to have no laceration. EBL was 100 cc. Patient and tolerated delivery well. Presentation: Vertex Amniotic Membrane Rupture Type: Artificial Time of Membrane Rupture: 4:45 am Amniotic Fluid Description: Clear Placental Delivery Description: Spontaneous Placenta Disposition: [facility] Cord Vessel Description: maraginal insertion Cord Entanglement: None A Gender: Female (1 minute): 8 (5 minute): 9 Delayed Cord Clamping: Yes Post Vaginal Delivery Medications Given After Delivery: IV Pitocin Episiotomy Description: None Laceration: None Complication Complications: None Multi Select Codes Urinary/Genital Urinary/Genital CPT Codes: 12921 Vaginal Delivery [facility]
--- NOTE | 2021-08-08 12:57 | OB.TRI.PN_ITS ---
Progress Notes Laboratory Studies: Laboratory Tests 08/08/21 08/08/21 08/07/21 Range/Units 05:35 05:35 14:25 WBC 12.9 H (4.4-11.0) K/mm3 RBC 3.97 L (4.2-5.4) M/mm3 Hgb 9.2 L (12.0-15.0) g/dL Hct 30.5 L (37-47) % MCV 76.8 L (81-99) fL MCH 23.2 L (27.0-32.0) pg MCHC 30.2 L (32-36) g/dL RDW Std Deviation 67.7 H (35.1-43.9) fl RDW Coeff of Sin 25.5 H (11.6-14.6) % Plt Count 250 (150-450) K/mm3 MPV 10.3 (6.2-12.0) fl Immature Gran % (Auto) 0.700 (0.0-0.9) % Neut % (Auto) 82.6 H (47-70) % Lymph % (Auto) 8.7 L (19-41) % [place] % (Auto) 7.7 (0-10) % Eos % (Auto) 0.1 (0-5) % Baso % (Auto) 0.2 (0-1) % Absolute Neuts (auto) 10.7 H (2.0-7.7) X10^3/uL Absolute Lymphs (auto) 1.13 (0.83-4.51) X10^3/uL Nucleated RBC % 0.8 (0-5) % Differential Comment SCANNED Polychromasia Hypochromasia 1+ Poikilocytosis Anisocytosis 2+ Microcytosis 2+ Ovalocytes Sodium 135 L (136-145) mmol/L Potassium 3.9 (3.5-5.1) mmol/L Chloride 104 (98-107) mmol/L Carbon Dioxide 24.0 (21.0-32.0) mmol/L Anion Gap 7 (5-15) BUN 8 (7-18) mg/dL Creatinine 0.75 0.67 (0.55-1.02) mg/dL Estim Creat Clear Calc 85.96 96.22 ml/min Est GFR (MDRD) Af Amer 115 132 (>60) mL/min Est GFR (MDRD) Non-Af 95 109 (>60) mL/min BUN/Creatinine Ratio 10.6 (10-20) RATIO Glucose 104 (74-106) mg/dL Uric Acid 6.2 H (2.6-6.0) mg/dL Calcium 7.7 L (8.5-10.1) mg/dL Total Bilirubin 0.30 (0.20-1.00) mg/dL AST 32 36 (15-37) U/L ALT 33 34 (13-56) U/L Alkaline Phosphatase 99 (45-117) U/L Total Protein 6.7 (6.4-8.2) g/dL Albumin 2.5 L (3.2-5.0) g/dL Globulin 4.2 (2.2-4.2) g/dL Albumin/Globulin Ratio 0.6 L (0.9-2.4) RATIO U Random Total Protein (<11.9) mg/dL Urine Creatinine (NO RANGE EST.) mg/dL Protein/Creatinin Ratio (0-200) mg/g CRE Blood Type Antibody Screen 08/07/21 08/07/21 08/07/21 Range/Units 14:25 14:25 14:09 WBC 8.9 (4.4-11.0) K/mm3 RBC 4.13 L (4.2-5.4) M/mm3 Hgb 9.4 L (12.0-15.0) g/dL Hct 31.7 L (37-47) % MCV 76.8 L (81-99) fL MCH 22.8 L (27.0-32.0) pg MCHC 29.7 L (32-36) g/dL RDW Std Deviation 68.4 H (35.1-43.9) fl RDW Coeff of Sin 26.0 H (11.6-14.6) % Plt Count 263 (150-450) K/mm3 MPV 10.6 (6.2-12.0) fl Immature Gran % (Auto) 0.800 (0.0-0.9) % Neut % (Auto) 69.9 (47-70) % Lymph % (Auto) 18.7 L (19-41) % Brantley % (Auto) 10.2 H (0-10) % Eos % (Auto) 0.2 (0-5) % Baso % (Auto) 0.2 (0-1) % Absolute Neuts (auto) 6.2 (2.0-7.7) X10^3/uL Absolute Lymphs (auto) 1.66 (0.83-4.51) X10^3/uL Nucleated RBC % 2.7 (0-5) % Differential Comment Polychromasia RARE Hypochromasia Poikilocytosis RARE Anisocytosis 1+ Microcytosis 1+ Ovalocytes RARE Sodium (136-145) mmol/L Potassium (3.5-5.1) mmol/L Chloride (98-107) mmol/L Carbon Dioxide (21.0-32.0) mmol/L Anion Gap (5-15) BUN (7-18) mg/dL Creatinine (0.55-1.02) mg/dL Estim Creat Clear Calc ml/min Est GFR (MDRD) Af Amer (>60) mL/min Est GFR (MDRD) Non-Af (>60) mL/min BUN/Creatinine Ratio (10-20) RATIO Glucose (74-106) mg/dL Uric Acid (2.6-6.0) mg/dL Calcium (8.5-10.1) mg/dL Total Bilirubin (0.20-1.00) mg/dL AST (15-37) U/L ALT (13-56) U/L Alkaline Phosphatase (45-117) U/L Total Protein (6.4-8.2) g/dL Albumin (3.2-5.0) g/dL Globulin (2.2-4.2) g/dL Albumin/Globulin Ratio (0.9-2.4) RATIO U Random Total Protein 55.8 H (<11.9) mg/dL Urine Creatinine 128.00 (NO RANGE EST.) mg/dL Protein/Creatinin Ratio 436 H (0-200) mg/g CRE Blood Type A POSITIVE Antibody Screen NEGATIVE
--- NOTE | 2021-08-08 13:07 | PCM.DC ---
Discharge Instructions Diet Discharge Diet: No restrictions Activity Discharge Activity: Return to Normal Activity, May Not Drive (while taking narcotic pain medications.) and May Shower May resume sexual activity in: 4-6 weeks Dressing / Incision Call your doctor if your incision/area has: Continuous Slow Oozing, Sudden Increased Bleeding, Increased Pain/ Swelling, Increased Redness and Foul Smelling Discharge Follow Up Care Please Follow Up With: Carmelita Weeks DO When: Call [phone] to make an appointment with your doctor in 6 weeks. If you had elevated blood pressure or 4th degree laceration, you will need to be seen in 2 weeks. Test Results: Test results from this visit will be discussed in further detail at your follow-up appointment, if applicable. Discharge Plan Admission Admit Date/Time: 08/07/21 12:08 Primary Reason for Your Visit: Induction of labor due to severe pre-eclampsia Attending Provider: Carmelita Weeks Discharge Orders/Prescriptions Prescriptions: New ibuprofen 800 mg tablet 800 mg PO Q8H PRN (Reason: pain) 7 Days Qty: 30 RF: 0 Discontinued aspirin [Baby Aspirin] 81 mg Tablet,Chewable 81 mg PO DAILY RF: 0 No Action prenat.vits,bharati,[id number]-thhpx Tablet 1 tab PO DAILY RF: 0 ferrous sulfate [FerrouSul] 325 mg (65 mg iron) Tablet 325 mg PO DAILY RF: 0 Disposition Disposition (needs filled in before D/C Order can be placed): Home, Self Care
[2021-08-08] MEDS: Acetaminophen 500 MG Tablet 1000 MG PO (18:52)
[2021-08-09 05:15] VITALS: BP 109/75; PULSE 86; RESP 18; TEMP 36.8; O2SAT 98
--- NOTE | 2021-08-09 08:25 | PN.OBGYN_ITS ---
Subjective Subjective Patient doing well without complaints. Tolerating PO. Ambulating and voiding without difficulty. Feeding well. Denies chest pain, shortness of breath, calf pain/swelling, fevers, chills, lightheadedness. Objective Data Objective Data Vital Signs: Vital Signs Temp Pulse Resp BP Pulse Ox 98.2 F 86 18 109/75 98 08/09/21 05:15 08/09/21 05:15 08/09/21 05:15 08/09/21 05:15 08/09/21 05:15 Oxygen Delivery Method Room Air Weight: 185 lb Body Mass Index (BMI) 33.8 Intake & Output: Intake and Output for Last 24 Hours 08/07/21 08/08/21 08/09/21 23:59 23:59 23:59 Intake Total 2306.70 / 2306.70 3980.67 / 3980.67 Output Total 1450 / 1450 2300 / 2300 Balance 856.70 / 856.70 1680.67 / 1680.67 Lab / Micro Data Result Diagrams: 08/08/21 05:35 08/08/21 05:35 Micro: Microbiology 08/07/21 12:45 Nasal Secretion SARS-CoV-2 Antigen (Rapid) - Final ROS Constitutional Constitutional: Denies chills, fatigue, fever(s), poor appetite or weakness Eyes Eyes: Denies blurry vision, change in vision, seeing flashes or spots in vision ENT HEENT: Denies dizziness, headache(s), loss taste/smell or sore throat Cardiovascular Cardiovascular: Denies chest pain, dizziness, dyspnea, irregular heart rhythm, palpitations or rapid heart rate Respiratory/Chest Respiratory/Chest: Denies chest tightness, cough, dyspnea or breast pain Gastrointestinal Gastrointestinal: Denies abdominal pain, constipation or vomiting Genitourinary Genitourinary: Denies dysuria or flank pain Musculoskeletal Musculoskeletal: Denies difficulty walking, joint pain, limited range of motion or numbness Neurologic Neurologic: Denies abnormal movements, abnormal speech, dizziness, numbness, seizure-like activity or syncope Psychiatric Psychiatric: Denies anxiety, behavioral changes, change in appetite, confusion, depression or suicidal thoughts Physical Exam Const alert, oriented x3 and no apparent distress General Appearance: cooperative and comfortable Resp normal respiratory effort Cardio regular rate GI normal to inspection, nondistended, normoactive bowel sounds GI Narrative: uterus is firm below umbilicus Palpation: soft Bimanual Exam - Adnexa, Other: Negative for cul-de-sac fullness Back/Spine no CVA tenderness and thoraco-lumbar ROM normal Extremity normal to inspection, no clubbing, cyanosis or edema, no calf tenderness and no pedal edema Psych mental status grossly normal, thought process normal, cooperative, affect normal, speech normal, activity/motor behavior normal, denies homicidal ideation and denies suicidal ideation Assessment & Plan (1) Preeclampsia, severe: PLAN: s/p PPD # 1- induced fo severe pre-eclampsia which has now r esolved. pt understands she is not out of the barboza yet and needs close follow up in one week for a blood pressure check. 1. routine post delivery care 2. breast feeding- support given 3. rh positive 4. rubella immune 5. dc to home later today
[2021-08-09 08:33] VITALS: BP 125/67; PULSE 64; RESP 16; TEMP 36.5; O2SAT 96
[2021-08-09] MEDS: Ibuprofen 600 MG Tablet PO ×2 (08:49→18:52)
[2021-08-09 12:16] VITALS: BP 134/83; PULSE 77; RESP 16; TEMP 36.1; O2SAT 97
[2021-08-09 20:45] VITALS: BP 128/77; PULSE 78; RESP 18; TEMP 36.6
[2021-08-10 01:52] VITALS: BP 134/76; PULSE 67; RESP 18; TEMP 36.2
[2021-08-10 08:10] VITALS: BP 127/72; PULSE 64; RESP 16; TEMP 36.6; O2SAT 97
[2021-08-10] MEDS: Ibuprofen 600 MG Tablet PO (08:25)
--- NOTE | 2021-08-10 09:37 | PN.OBGYN_ITS ---
Subjective Subjective Patient doing well without complaints. Tolerating PO. Ambulating and voiding without difficulty. Feeding well. Denies chest pain, shortness of breath, calf pain/swelling, fevers, chills, lightheadedness. she stayed last night because of some mild cramping, bad road conditions, and baby needed to be followed for hyp erbiliubinemia. Objective Data Objective Data Vital Signs: Vital Signs Temp Pulse Resp BP Pulse Ox 98 F 64 16 127/72 H 97 08/10/21 08:10 08/10/21 08:10 08/10/21 08:10 08/10/21 08:10 08/10/21 08:10 Oxygen Delivery Method Room Air Weight: 185 lb Body Mass Index (BMI) 33.8 Intake & Output: Intake and Output for Last 24 Hours 08/08/21 08/09/21 08/10/21 23:59 23:59 23:59 Intake Total 3980.67 / 3980.67 Output Total 2300 / 2300 Balance 1680.67 / 1680.67 Lab / Micro Data Result Diagrams: 08/08/21 05:35 08/08/21 05:35 Micro: Microbiology 08/07/21 12:45 Nasal Secretion SARS-CoV-2 Antigen (Rapid) - Final ROS Constitutional Constitutional: Denies chills, fatigue, fever(s), poor appetite or weakness Eyes Eyes: Denies blurry vision, change in vision, seeing flashes or spots in vision ENT HEENT: Denies dizziness, headache(s), loss taste/smell or sore throat Cardiovascular Cardiovascular: Denies chest pain, dizziness, dyspnea, irregular heart rhythm, palpitations or rapid heart rate Respiratory/Chest Respiratory/Chest: Denies chest tightness, cough, dyspnea or breast pain Gastrointestinal Gastrointestinal: Denies abdominal pain, constipation or vomiting Genitourinary Genitourinary: Denies dysuria or flank pain Musculoskeletal Musculoskeletal: Denies difficulty walking, joint pain, limited range of motion or numbness Neurologic Neurologic: Denies abnormal movements, abnormal speech, dizziness, numbness, seizure-like activity or syncope Psychiatric Psychiatric: Denies anxiety, behavioral changes, change in appetite, confusion, depression or suicidal thoughts Physical Exam Const alert, oriented x3 and no apparent distress General Appearance: cooperative and comfortable Resp normal respiratory effort Cardio regular rate GI normal to inspection, nondistended, normoactive bowel sounds GI Narrative: uterus is firm below umbilicus Palpation: soft Bimanual Exam - Adnexa, Other: Negative for cul-de-sac fullness Back/Spine no CVA tenderness and thoraco-lumbar ROM normal Extremity normal to inspection, no clubbing, cyanosis or edema, no calf tenderness and no pedal edema Psych mental status grossly normal, thought process normal, cooperative, affect normal, speech normal, activity/motor behavior normal, denies homicidal ideation and denies suicidal ideation Assessment & Plan (1) state: PLAN: s/p PPD # 2- pre-e resolved 1. routine post delivery care 2. breast feeding- support given 3. rh positive 4. rubella immune 5. dc today and follow up in 1 week for nurse bp check
[2021-08-10 14:45] VITALS: BP 137/84; PULSE 62; RESP 18; TEMP 36.4; O2SAT 100
== END 2021-08-10 18:20 | disposition home or self-care (01) | DRG 998 ==
PROVIDERS: Obstetrics & Gynecology; Admitting Provider Obstetrics & Gynecology; Visit Provider Obstetrics & Gynecology
DX: O14.14 Severe pre-eclampsia complicating childbirth (principal); I95.9 Hypotension, unspecified; D50.9 Iron deficiency anemia, unspecified; E04.1 Nontoxic single thyroid nodule; Z37.0 Single live birth; O99.42 Diseases of the circulatory system complicating childbirth; O76 Abnormality in fetal heart rate and rhythm complicating labor and delivery; Z3A.36 36 weeks gestation of pregnancy; O99.02 Anemia complicating childbirth; O99.284 Endocrine, nutritional and metabolic diseases complicating childbirth
CPT/HCPCS: 59025; 59050; 76815; 80053; 82565; 82570; 84156; 84450; 84460; 84550; 85025; 86850; 86900; 86901; 87426; 99218; J7030; J7120; A4216; G0378; J2405

== ENCOUNTER → 2022-03-14 | Outpatient (CLI) | payer BC, SELFPAY ==
--- NOTE | 2022-03-14 16:27 | US_ITS ---
EXAM: US SOFT TISSUES HEAD AND NECK, THYROID CLINICAL INDICATION: NODULE TECHNIQUE: Greyscale and color doppler imaging was performed of the thyroid gland. This report was created using [employer] report generation technology. COMPARISON: 12/09/2013 thyroid ultrasound FINDINGS: Right thyroid lobe measures 6.4 x 2.2 x 4.8 cm. There is a nodule at the interpolar aspect of the right upper lobe measuring 1.3 x 1.1 x 0.8 cm. This appears solid with regular margins and no calcifications. There is peripheral blood flow. The left thyroid lobe measures 5.4 x 1.8 x 1.5 cm and contains a nodule at the lower pole measuring 0.4 x 0.4 x 0.2 cm. This appears to be solid and cystic with irregular margins. There is peripheral blood flow. Thyroid isthmus measures up to 2.6 mm with no nodules. No adenopathy. US/Thyroid IMPRESSION: Interval increase in size of bilateral thyroid nodules with largest nodule measuring 1.3 cm at the interpolar aspect of the right lobe. Electronically Signed: Brandon Nava MD at 4:22 EDT ,
== END | disposition home or self-care (01) ==
LOC: US 16:25
PROVIDERS: PCP Family Medicine; Visit Provider Family Medicine
DX: E04.1 Nontoxic single thyroid nodule (principal)
CPT/HCPCS: 76536

== ENCOUNTER → 2022-03-15 | Outpatient (CLI) | payer BC, SELFPAY ==
[2022-03-15 16:11] LABS: Free T3 3.3 pg/mL (2.18-3.98); T4 Free Direct 0.99 ng/dL (0.76-1.46); Thyroid Stim Hormone (TSH) 0.34 uIU/mL (0.358-3.74)
== END | disposition home or self-care (01) ==
LOC: MFPLAB 12:08
PROVIDERS: PCP Family Medicine; Referring Provider Family Medicine; Visit Provider Family Medicine
DX: E04.1 Nontoxic single thyroid nodule (principal)
CPT/HCPCS: 36415; 84439; 84443; 84481

== ENCOUNTER → 2022-04-24 | Outpatient (CLI) | payer BC, SELFPAY ==
--- NOTE | 2022-04-24 08:31 | NM_ITS ---
CLINICAL: 32-year-old female with history of clinical hypothyroidism and thyroid nodularity. I-123 THYROID UPTAKE and SCAN COMPARISON: Thyroid ultrasound report 03/14/2022 FINDINGS: The patient was administered a 307 uCi I-123 capsule by mouth. The 4-hour I-123 radioactive iodine thyroidal uptake was calculated to be 18.7 % (normal 5 to 25 %). The 24-hour I-123 radioactive iodine thyroidal uptake was calculated to be 41.5 % (normal 5 to 40 %). The I-123 thyroid scan demonstrates homogeneous radiopharmaceutical concentration throughout the left lobe of a U-shaped thyroid gland. A hyperfunctioning nodule involving the midpole of the right lobe thyroid colloid is discerned. There are no colloidal parenchymal hypofunctioning-cold nodules noted in either lobe of the thyroid gland. NM/Thyroid Uptake Single or Mult IMPRESSION: 1. NORMAL 4- and MILDLY ELEVATED 24-hour I-123 radioactive iodine thyroidal uptakes. 2. The I-123 thyroid scan appears to represent a hyperfunctioning nodule involving the midpole of the right lobe thyroid colloid. Electronically Signed: Edson Shirley, at 21:50 EDT ,
== END | disposition home or self-care (01) ==
LOC: NM 08:27
PROVIDERS: PCP Family Medicine; Referring Provider Family Medicine; Visit Provider Family Medicine
DX: E03.9 Hypothyroidism, unspecified (principal)
CPT/HCPCS: 78012; A9516

== ENCOUNTER → 2022-10-29 | Outpatient (CLI) | payer BC, SELFPAY ==
[2022-11-06 11:09] LABS: HPV APTIMA, High Risk Negative (Negative)
== END | disposition home or self-care (01) ==
LOC: LABSPEC 16:32
PROVIDERS: PCP Family Medicine; Referring Provider Obstetrics & Gynecology; Visit Provider Obstetrics & Gynecology
DX: Z12.4 Encounter for screening for malignant neoplasm of cervix (principal)
CPT/HCPCS: 87624; 88175; G0145

== ENCOUNTER → 2023-03-11 | Outpatient (CLI) | payer BC, SELFPAY ==
[2023-03-11 15:07] LABS: Free T3 3.2 pg/mL (2.18-3.98); T4 Free Direct 0.96 ng/dL (0.76-1.46); Thyroid Stim Hormone (TSH) 0.41 uIU/mL (0.358-3.74)
[2023-03-13 08:12] LABS: Thyroid Peroxidase AB 10 IU/mL (0-34)
== END | disposition home or self-care (01) ==
PROVIDERS: PCP Family Medicine; Referring Provider Internal Medicine Endocrinology, Diabetes & Metabolism; Visit Provider Internal Medicine Endocrinology, Diabetes & Metabolism
DX: E04.9 Nontoxic goiter, unspecified (principal)
CPT/HCPCS: 36415; 84439; 84443; 84481; 86376

== ENCOUNTER → 2024-08-23 | Outpatient (CLI) | payer BC, SELFPAY ==
[2024-08-23 13:16] LABS: hCG Titer Quant., Serum 28 mIU/mL (1-3)
== END | disposition home or self-care (01) ==
LOC: PAVLAB 12:38
PROVIDERS: PCP Family Medicine; Referring Provider Advanced Practice Midwife; Visit Provider Advanced Practice Midwife
DX: O26.859 Spotting complicating pregnancy, unspecified trimester (principal); Z3A.00 Weeks of gestation of pregnancy not specified
CPT/HCPCS: 36415; 84702

== ENCOUNTER → 2024-08-25 | Outpatient (CLI) | payer BC, SELFPAY ==
[2024-08-25 15:02] LABS: hCG Titer Quant., Serum 10 mIU/mL (1-3)
== END | disposition home or self-care (01) ==
PROVIDERS: PCP Family Medicine; Referring Provider Advanced Practice Midwife; Visit Provider Advanced Practice Midwife
DX: O26.859 Spotting complicating pregnancy, unspecified trimester (principal); Z3A.00 Weeks of gestation of pregnancy not specified
CPT/HCPCS: 36415; 84702

== ENCOUNTER → 2024-11-24 | Outpatient (CLI) | payer BC, SELFPAY ==
[2024-11-25 11:08] LABS: Protein, Urine (Random) 14.1 mg/dL (0.0-12.0); Protein:Creat Ratio 51 mg/g CRE (0-200)
[2024-11-26 21:07] LABS: Chlamydia By Nucleic Acid AMP Negative (Negative); Gonococcus By Nucleic Acid AMP Negative (Negative)
== END | disposition home or self-care (01) ==
LOC: LABSPEC 16:00
PROVIDERS: PCP Family Medicine; Referring Provider Advanced Practice Midwife; Visit Provider Advanced Practice Midwife
DX: O09.90 Supervision of high risk pregnancy, unspecified, unspecified trimester (principal); Z3A.00 Weeks of gestation of pregnancy not specified
CPT/HCPCS: 82570; 84156; 87086; 87491; 87591

== ENCOUNTER → 2024-12-27 | Outpatient (CLI) | payer BC, SELFPAY ==
[2024-12-27 12:05] LABS: Absolute Neutrophil Count 5.7 X10^3/uL (2.0-7.7); Basophil# 0.03 X10^3/uL; Basophil% 0.4 % (0-1); Eosinophil# 0.07 X10^3/uL; Eosinophils% 0.9 % (0-5); Hematocrit 41.4 % (37-47); Hemoglobin 13.9 g/dL (12.0-15.0); Lymphocyte % 19.2 % (19-41); Mean Corp Hgb Conc 33.6 g/dL (32-36); Mean Corpuscular Hgb 29.3 pg (27.0-32.0); Mean Corpuscular Volume 87.3 fL (81-99); Mean Platelet Vol. 10.2 fl (6.2-12.0); Monocyte# 0.48 X10^3/uL; Monocyte% 6.1 % (0-10); NRBC Flagged by Analyzer 0 % (0-5); Neutrophil # 5.71 X10^3/uL (2.7-7.7); Neutrophil % 72.9 % (47-70); Platelet Count 236 K/mm3 (150-450); RBC Distribution Width CV 12.5 % (11.6-14.6); RBC Distribution Width SD 40.3 fl (35.1-43.9); Red Blood Count 4.74 M/mm3 (4.2-5.4); White Blood Count 7.8 K/mm3 (4.4-11.0)
[2024-12-27 13:06] LABS: Hemoglobin A1c 5.1 % (<=5.6)
[2024-12-27 13:32] LABS: EST Glomerular Filtration Rate 118 (>60); HIV Nonreactive (Nonreactive); Hepatitis B Surface Antigen Nonreactive (Nonreactive); Hepatitis C Antibody Nonreactive (Nonreactive); Rubella IgG REAC (Nonreactive); Syphilis Antibodies Nonreactive (Nonreactive); Thyroid Stim Hormone (TSH) 0.026 uIU/mL (0.300-4.200)
[2024-12-27 13:42] LABS: ALB/GLOB Ratio 1.2 RATIO (0.9-2.4); AST(SGOT) 18 U/L (<=31); Alanine Aminotransfer ALT/SGPT 16 U/L (<=34); Albumin, Serum 3.8 g/dL (3.5-5.0); Alkaline Phosphatase 58 U/L (35-104); Anion Gap 12 (5-15); BUN 5 mg/dL (4-19); BUN/Creat Ratio 8.3 RATIO (10-20); Calcium,Total 9.1 mg/dL (7.6-11.0); Carbon Dioxide 20.8 mmol/L (21.0-32.0); Chloride 102 mmol/L (98-108); Creatinine, Serum 0.62 mg/dL (0.70-1.20); Globulin 3.2 g/dL (2.2-4.2); Glucose 72 mg/dL (70-99); Potassium 3.9 mmol/L (3.3-5.1); Sodium Level 135 mmol/L (133-145); Total Bilirubin 0.27 mg/dL (0.00-1.30)
--- OUTSIDE RECORDS SUMMARY | 2024-12-27 22:01 | XMS RPT_ITS | CCD ---
Author Organization [facility] CliniSyga Care Team Providers Care Electrotyper Helper Name Role Phone SHAWN JOHNSON, DR HENDERSON Primary Care Physician ALAINA DPHOWARD Limon Attending Unavailable SHAWN JOHNSON, DR HENDERSON Primary Care HOWARD Johnston DPM Attending Unavailable SHAWN OJHNSON, DR HENDERSON Primary Care Dr. Antony Tello Primary Care Provider Dr. Antony Escobar Referring Provider Dr. Denis Galdamez Attending Provider [phone] Carmelita Weeks Attending Provider Dr. Beatriz Escobar MD Primary Care Provider Lyssa Aguila CNM Attending Provider [phone] Lyssa Aguila CNM Referring Provider [phone] Dr. Beatriz Escobar MD Referring Provider [phone] Carla AIRLINE MECHANIC, Cassidy Attending Unavailable Shawn, Beatriz Primary Care Unavailable Shawn, Vlader Referring Unavailable Lyssa Aguila Attending Unavailable Beatriz Escobar Primary Care Unavailable Lyssa Aguila Referring Unavailable Lyssa Aguila Attending Unavailable Shawn, Christophita Referring Unavailable Rancadence, Christopher Primary Care Unavailable Lyssa Aguila Attending Unavailable Shawn, Christopher Referring Unavailable Rancadence, Christopher Primary Care Unavailable Rancadence, Christopher Primary Care Unavailable Lyssa Aguila Referring Unavailable Lyssa Aguila Attending Unavailable Shawn, Christopher Primary Care Unavailable Lyssa Aguila Attending Unavailable Lyssa Aguila Referring Unavailable Shawn JOHNSON, Dr. Henderson Primary Care Provider Dr. Beatriz Escobar MD Referring Provider [phone] Lyssa Aguila CNM Attending Provider [phone] Lyssa Aguila CNM Referring Provider Cassidy Horta Attending Provider [phone] Cassidy Horta Referring Provider [phone] Allergies Allergy Classification Reported Allergen(s) Allergy Type Date of Onset Reaction(s) Facility (7 sources) Penicillins Allergy to substance 09-19-2021 Unknown [facility] Comment on above: as a (1 source) Penicillin; Translations: [penicillins] Drug Allergy [facility] (1 source) Penicillins Drug allergy (disorder) 11-24-2024 [facility] Repository Medications Current Medications Medication Drug Class(es) Dates Sig (Normalized) Sig (Original) acetaminophen 500 mg oral tablet (1 source) Start: 09-06-2022 Tylenol Extra Strength 500 mg oral tablet Dose : 500 mg = 1 tab(s), Oral, Daily, PRN as needed for pain Start Date: 09/06/22 Status: Ordered ferrous sulfate 325 mg oral tablet (16 sources) Start: 09-05-2023 take 1 tablet by mouth once daily Ferrous Sulfate (Feosol) 325 mg (65 mg iron) tablet Active 325 mg PO DAILY September 05, 2023 1:00am Start: 05-10-2022 End: 10-29-2022 take 1 tablet by mouth once daily Ferrous Sulfate (Feosol) 325 mg (65 mg iron) tablet Discontinued 325 mg PO DAILY May 10, 2022 12:00am October 29, 2022 2:08pm Start: 08-03-2021 End: 08-16-2021 take 1 tablet by mouth once daily Ferrous Sulfate (Ferrousul) 325 mg (65 mg iron) Tablet Discontinued 325 mg PO DAILY August 03, 2021 1:00am August 16, 2021 2:41pm Multivitamin preparation (3 sources) Start: 09-06-2022 take 1 tablet by mouth once daily Multivitamin Dose = 1 tab(s), Oral, Daily, 0 Refill(s) Start Date: 09/06/22 Status: Ordered Start: 05-10-2022 take 1 tablet by real once daily Multivitamin Active 1 TABLET PO DAILY May 10, 2022 12:00am Mv-Mins 22-Jish-Yxkjs No.1-D garvey (Pnv-[place]) 28-1-300 mg capsule (3 sources) Start: 11-12-2024 Mv-Mins 71-Iro n-Folic No.1-Dha (Pnv-[place]) 28-1-300 mg capsule Active NMA PO November 12, 2024 12:00am [place] (Nk) (2 sources) Start: 09-19-2021 [place] (Nk) A ctive September 19, 2021 12:00am Completed/Discontinued Medications Medication Drug Class(es) Dates Sig (Normalized) Sig (Original) amphetamine aspartate 3.75 mg / amphetamine sulfate 3.75 mg / dextroamphetamine saccharate 3.75 mg / dextroamphetamine sulfate 3.75 mg oral tablet (7 sources) Central Nervous System Stimulant Start: 05-15-2013 End: 02-29-2020 take 1 tablet by mouth twice daily Dextroamphetamine-A mphetamine 15 MG tablet Discontinued 15 mg PO TWICE A DAY May 15, 2013 1:00am February 29, 2020 2:48pm aspirin 81 mg chewable tablet (7 sources) Platelet Aggregation Inhibitor, Nonsteroidal Anti-inflammatory Drug Start: 08-03-2021 End: 08-08-2021 take 1 tablet by mouth once daily Aspirin (Baby Aspirin) 81 mg Tablet,Chewable Discontinued 81 mg PO DAILY August 03, 2021 1:00am August 08, 2021 2:08pm cholecalciferol 0.025 mg oral capsule (3 sources) Vitamin D Start: 09-05-2023 End: 08-23-2024 take 1 capsule by mouth once daily Cholecalciferol (Vitamin D3) 25 mcg (1,000 unit) capsule Discontinued 25 ug PO DAILY September 05, 2023 1:00am August 23, 2024 4:21pm docosahexaenoic acid 200 mg oral capsule (3 sources) Start: 08-23-2024 End: 11-12-2024 Docosahexaenoic Acid ( Dha) 200 mg capsule Discontinued mg PO August 23, 2024 1:00am November 12, 2024 2:29pm Norgestimate-Ethinyl Estradiol (5 sources) Progestin, Estrogen Start: 10-29-2022 End: 09-05-2023 Norgestimate-Ethiny l Estradiol (Sprintec (28)) 0.25-35 mg-mcg tablet Discontinued 1 {tbl} PO DAILY October 29, 2022 12:00am September 05, 2023 3:03pm Start: 10-29-2022 take 1 tablet by real th once daily Norgestimate-Ethinyl Estradiol (Sprintec (28)) 0.25-35 mg-mcg tablet Active 1 TABLET PO DAILY October 29, 2022 12:00am ibuprofen 800 mg oral tablet (7 sources) Nonsteroidal Anti-inflammatory Drug Start: 08-08-2021 End: 09-19-2021 take 1 tablet by mouth every eight hours as needed for pain Ibuprofen 800 mg tablet Discontinued 800 mg PO Q8H as needed for pain 02 02August 08, 2021 1:00am September 19, 2021 1:32pm Multivitamin tablet (3 sources) Start: 05-10-2022 End: 09-05-2023 Multivitamin tablet Discontinued 1 {tbl} PO DAILY May 10, 2022 12:00am September 05, 2023 3:03pm naproxen sodium 220 mg oral capsule (7 sources) Nonsteroidal Anti-inflammatory Drug Start: 02-29-2020 End: 01-11-2021 take 1 capsule by mouth twice daily as needed Naproxen Sodium (Aleve) 220 mg capsule Discontinued 220 mg PO TWICE A DAY as needed February 29, 2020 12:00am January 11, 2021 3:31pm ondansetron 4 mg disintegrating oral tablet (7 sources) Serotonin-3 Receptor Antagonist Start: 01-17-2021 End: 08-03-2021 take 1 tablet by mouth every eight hours as needed for nausea and vomiting Ondansetron 4 mg tablet,disintegr ating Discontinued 4 mg PO Q8H as needed for nausea and vomiting January 17, 2021 12:00am August 03, 2021 3:28pm Prenat.Vits,Marcel,Min -Iron-Folic (4 sources) Start: 01-11-2021 End: 08-16-2021 take 1 tablet by mouth once daily Prenat.Vits,Marcel, Dat-Oaxx-Pwsei Discontinued 1 TABLET PO DAILY January 11, 2021 12:00am August 16, 2021 2:41pm Prenat.Vits,Marcel,Min -Iron-Folic tablet (3 sources) Start: 01-11-2021 End: 08-16-2021 Prenat.Vits,Marcel, Mfp-Wshj-Brzzq tablet Discontinued 1 {tbl} PO DAILY January 11, 2021 12:00am August 16, 2021 2:41pm promethazine hydrochloride 12.5 mg oral tablet (7 sources) Phenothiazine Start: 01-11-2021 End: 08-03-2021 take 1 tablet by mouth every six hours as needed for nausea and vomiting Promethazine 12.5 mg tablet Discontinued 12.5 mg PO EVERY 6 HOURS as needed for nausea and vomiting January 11, 2021 12:00am August 03, 2021 3:28pm Problems Active Problems Problem Classification Problem Date Documented Da te Episodic/Chronic Anxiety disorders (8 sources) Needle phobia; 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 declines prescription iron and iron infusion. on OTC iron supplementation, discussed risk of transfusion at , patient to consider Diabetes mellitus without complication (7 sources) Abnormal glucose level; Translations: [Other abnormal glucose] 08-09-2021 Episodic Comment on above: nml 3 hr GTT Hypertension complicating ; childbirth and the puerperium (7 sources) Severe pre-eclampsia; Translations: [Severe pre-eclampsia, unspecified trimester] 08-09-2021 Episodic Menstrual disorders (8 sources) Amenorrhea; Translations: [Amenorrhea, unspecified] Onset: 11-24-2024 11-01-2024 Chronic Comment on above: HCGx2 Other circulatory disease (7 sources) H/O: varicose veins; Translations: [Personal history of other diseases of the circulatory system] 11-12-2024 Episodic Comment on above: below left knee Other circulatory disease (1 source) Personal history of other diseases of the circulatory system; Translations: [Personal history of other diseases of the circulatory system] Onset: 11-24-2024 Episodic Other complications of (7 sources) Maternal obesity complicating , childbirth and the puerperium, antepartum; Translations: [Obesity complicating , unspecified trimester] 11-12-2024 Chronic Comment on above: HgbA1c Other complications of (1 source) Obesity complicating , unspecified trimester; Translations: [Obesity complicating , unspecified trimester] Onset: 11-24-2024 Chronic Other complications of (14 sources) High risk ; Translations: [Supervision of high risk , unspecified, unspecified trimester] 08-09-2021 Episodic Comment on above: , [facility] 07/04/25, PC Shlomo, [place], Aman PRR [facility] 08/31/21 PC:Shlomo Spouse: Jan(his first) Other complications of (4 sources) Nausea and vomiting; Translations: [Vomiting of , unspecified] 07-05-2021 Episodic Other complications of (7 sources) Proteinuria; Translations: [Gestational proteinuria, unspecified trimester] 08-07-2021 Episodic Comment on above: WP celestone and akira wth u/s per SM, cbc, cmp Ur prt/crea (312) Other complications of (7 sources) History of pre-eclampsia; Translations: [Supervision of with other poor reproductive or obstetric history, unspecified trimester] 08-11-2021 Episodic Comment on above: teen and i nduced at 36 wks, recommend baby aspirin, baseline preE labs ordered at new OB Other complications of (7 sources) Reduced movement; Translations: [Decreased movements, unspecified trimester, not applicable or unspecified] 07-05-2021 Episodic Other complications of (5 sources) Spotting per vagina in ; Translations: [Spotting complicating , unspecified trimester] 11-01-2024 Episodic Other complications of (7 sources) H/O: miscarriage; Translations: [Supervision of with other poor reproductive or obstetric history, unspecified trimester] 11-12-2024 Episodic Other complications of (7 sources) Advanced maternal age ; Translations: [Elderly multigravida, unspecified as to episode of care or not applicable] 11-24-2024 Episodic Comment on above: deliver at 39-40 wee ks Other complications of (3 sources) Vomiting of , unspecified; Translations: [Nausea and vomiting during ] 07-05-2021 Episodic Other complications of (1 source) Supervision of high risk , unspecified, unspecified trimester; Translations: [Supervision of high risk , unspecified, unspecified trimester] Onset: 12-01-2024 Episodic Other complications of (1 source) Supervision of with other poor reproductive or obstetric history, unspecified trimester; Translations: [Supervision of with other poor reproductive or obstetric history, unspecified trimester] Onset: 11-24-2024 Episodic Other gastrointestinal disorders (7 sources) Constipation; Translations: [Constipation, unspecified] 06-21-2021 Episodic Other hematologic conditions (7 sources) History of anemia; Translations: [Personal history of diseases of the blood and blood-forming organs and certain disorders involving the immune mechanism] 11-12-2024 Episodic Other hematologic conditions (1 source) Personal history of diseases of the blood and blood-forming organs and certain disorders involving the immune mechanism; Translations: [Personal history of diseases of the blood and blood-forming organs and certain disorders involving the immune mechanism] Onset: 11-24-2024 Episodic Other and delivery including normal (16 sources) ; Translations: [Encounter for supervision of normal , unspecified, unspecified trimester] 08-09-2021 Episodic Comment on above: declined NIPT & Garza ier testing GBS neg. anatomy nl, NIPT- low risk female, declines carrier Residual codes; unclassified (11 sources) Positive measurement finding; Translations: [Positive test for human papillomavirus (HPV)] 01-11-2021 Episodic Comment on above: 04/2020 CC, record scanned Residual codes; unclassified (11 sources) Past history of procedure; Translations: [Other specified postprocedural states] 01-11-2021 Episodic Comment on above: F pap 04/2020 pos HPV, neg pap. Neg colp wo bx per RR at [facility] 05/2020 Residual codes; unclassified (1 source) 8 weeks gestation of ; Translations: [8 weeks gestation of ] Onset: 11-24-2024 Episodic Residual codes; unclassified (1 source) Other specified postprocedural states; Translations: [Other specified postprocedural states] Onset: 11-24-2024 Episodic Syncope (7 sources) Syncope; Translations: [Syncope and collapse] 08-11-2021 Episodic Comment on above: Patient with multipl e syncopal episodes at work in spite of adequate food and water intake. 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 Aware only gets 12w of FMLA and may lose employment - voices understanding. Still having near syncopal episodes - offered cardiology but would like to monitor until next visit. Thyroid disorders (20 sources) Thyroid nodule; Translations: [Nontoxic single thyroid nodule] Onset: 11-24-2024 01-11-2021 Chronic Comment on above: Recent dx: normal la bs. did not get US of thyroid done. Past or Other Problems Problem Classification Problem Date Documented Da te Episodic/Chronic Other complications of (1 source) Spotting complicating , unspecified trimester; Translations: [Spotting complicating , unspecified trimester] Onset: 09-08-2024 Episodic Results Test Name Value Interpretation Reference Range Facility Chlamydia/GC GEETA aptimaon CHLAMY,NUC ACID Negative Normal Negative [facility] Comment on above: Performed By: #### L 7000.1800, L501.0900, M100.2200 #### [facility] [address] [place], [address] GC BY NUC ACID Negative Normal Negative [facility] Comment on above: Result Comment: Perf ormed at: =G - [facility] [address] [id number] [facility]: Patrizia De La Torre MD, Phone: [phone] Performed By: #### L 7000.1800, L501.0900, M100.2200 #### [facility] [address] [place], [address] Protein+Creatinine Ratio,Uri neon 11-25-2024 PROT:CRE RATIO 51 mg/g CRE Normal 0-200 [facility] Comment on above: Performed By: #### L 7000.1800, L501.0900, M100.2200 #### [facility] [address] [place], [address] Protein (U) [Mass/Vol] 14.1 mg/dL High 0.0-12.0 [facility] Comment on above: Performed By: #### L 7000.1800, L501.0900, M100.2200 #### [facility] [address] [place], [address] UR CREAT 277.00 mg/dL High 28.00-217.00 [facility] Comment on above: Performed By: #### L 7000.1800, L501.0900, M100.2200 #### [facility] [address] [place], [address] Urine Cultureon 11-25-2024 URC Culture exhibits no growth. Normal [facility] Comment on above: Performed By: #### L 7000.1800, L501.0900, M100.2200 #### [facility] [address] [place], [address] Chlamydia trachomatis rRNA d etection by probe and target amplification methodOrdered By: Lyssa Aguila on 11-24-2024 C. trachomatis rRNA GEETA+probe Ql (Unsp spec) Negative Negative [facility] Neisseria gonorrhoeae nuclei c acid detection by amplified probe techniqueOrdered By: Lyssa Aguila on 11-24-2024 N. gonorrhoeae DNA GEETA+probe Ql (Unsp spec) Negative Negative [facility] Comment on above: Performed at: =[address] [id number] Director: Patrizia De La Torre MD, Phone: [phone] Cctv Technician Office Visit Reporton 11-24-2024 Cctv Technician Office Visit Report [facility] [address], [address] [place] [address] OFFICE VISIT Date of Service: 11/24/24 MR#: [id number] Acct: [id number] Name: DEMARCUS ABAD Rep #: [id number] : 1990 Provider: SULLY Boudreaux ams Age/Sex: 34/F Location: [facility] Status: Signed Intake Vital Signs 08/23/24 15:14 11/24/24 12:59 Height 5 ft 2 in 5 ft 2 in Weight: 166 lb 168 lb 8 oz BMI 30.3 30.8 BP 119/77 108/74 Intake Visit Reasons: NOB LMP 09/27 Chief Complaint: New OB Waterproofer Required: No Is patient in pain?: No Allergies Penicillins Allergy (Unknown, Verified 11/24/24 12:57) Unknown Medications ???Medication ???Instructions ???Recorded ???Confirmed ???Type ferrous sulfate 325 mg (65 mg 325 mg PO DAILY 09/05/23 11/24/24 History iron) tablet (Feosol) multivit-min no.71-iron fum 28 cap PO 11/12/24 11/24/24 History mg-folate no.1 1 mg-dha 300 mg capsule (PNV-[place]) Last Menstrual Period: 09/27/24 : Yes PFSH PFSH Medical History Hx of varicose veins of lower extremity Depression Nodular goiter HPV (human papilloma virus) infection Thyroid disorder Pre-eclampsia Abnormal glucose Anemia Surgical History History of bunionectomy of right great toe [place] teeth extracted History of colposcopy Family History Mother Hypertension Father Diabetes Aunt Thyroid disorder Maternal- unknown type Social History adopted: No household members: spouse and children housing: house number of children: 2 service: No current occupational status: unemployed current occupation: [employer] pets and animals: Yes (no litter box) pets and animals: cat(s) history of recent travel: No sexually active: Yes Smoking Status: Never smoker alcohol intake: never substance use type: does not use well-balanced diet: daily or most days caffeine: No eating out: 1-3 times/week during the past year weight has: increased > 10 lbs what type of physical activity do you participate in: none [place]/evangelical: Evangelical seatbelt use: always do you feel safe at home: Yes additional social history: [employer] History 4 Elective abortions Hx Para 2 Spontaneous abortions 1 Hx # Term Pregnancies Ectopic pregnancies Hx # Pregnancies 2 Multiple births # of living children 2 Past Pregnancies Del. Date Name GA/Weeks Outcome Route Bth Weight Infant Gen Labor Lgth Anesthesia Del Locatn Provider FOB Unknown 08/2024 6 spontaneous 04/30/08 Shlomo 36 live - 6# Male epidural [facility] Taye 08/08/21 Emalie 36 live - 6lbs 14oz Female epidural [facility] Va nde Velde Delivery Date: 04/30/08 Last Updated by: Cassidy Aguirre AIRLINE MECHANIC, AIRLINE MECHANIC-C Induced to preeclampsia, teen Delivery Date: 08/08/21 Last Updated by: Ashley Cortes IOL pre-e HPI NOB LMP 09/27 Details: DEMARCUS ABAD is a 34 year old who presents for New OB visit. OB Visit [facility] Calculator Estimated Delivery Date Method Current WG Current Estimate 07/04/25 LMP (Certain) 8w 2d Other Estimates 07/07/25 Ultrasound #1 7w 6d Comments: HIV: Urine Culture: Sequential Screen: NIPT Screen: Estimated Due Date: 09/27/24 Expected Delivery Route/Plan Labor Preferences- CB/BF classes: [] labor support person: [] labor intervention preferences: [] pain management options preferred: [] cut cord/dad catch: [] : [] PP control planned: [] discussed possible routes of delivery and associated risks: [] special requests: [] Specific Issue/Plans Covid status: [] Flu vaccine: [] Tdap vaccine: [] Rhogam: [] LARC form signed: [] Problem list reviewed and updated with the most current plan of care details and appropriate orders placed. Relevant counseling for the gestational age provided. Continue routine care and follow up unless otherwise noted in visit notes/problem list details Initial Weight: 168 lb Date -???-???-???-???-???- ???-???-???-???-???-? ??-???- EGA Weight BP Urine Prot -???-???-???-???-???- ???-???-???-???-???-? ??-???- Glucose FHR FuHt Pres Dilation -???-???-???-???-???- ???-???-???-???-???-? ??-???- Effaced St Visit Note 11/24/24 -???-???-???-???-???- ???-???-???-???-???-? ??-???- 8w 2d 168 lb 8 oz (+8 oz) 108/74 -???-???-???-???-???- ???-???-???-???-???-? ??-???- 162 -???-???-???-???-???- ???-???-???-???-???-? ??-???- KW- CRL cons with dates. accepts NIPT. Menstrual History Last Menstrual Period: 09/27/24 Repo (more content not included)... Normal [facility] Random urine creatinine david urement (mass/volume)Ordered By: Lyssa Aguila on 11-24-2024 Creatinine Unsp time (U) [Mass/Vol] 277.00 mg/dL High 28.00-217.00 [facility] Urine cultureOrdered By: Jose Aguila on 11-24-2024 Bacteria identified Cx Nom (U) Culture exhibits no growth. [facility] Urine protein measurement (m ass/volume)Ordered By: Lyssa Aguila on 11-24-2024 Protein (U) [Mass/Vol] 14.1 mg/dL High 0.0-12.0 [facility] Urine protein/creatinine mas s ratioOrdered By: Lyssa Aguila on 11-24-2024 Protein/Creatinine (U) [Mass ratio] 51 mg/g CRE 0-200 [facility] Serum human chorionic gonado tropin detection for pregnancyOrdered By: Lyssa Aguila on 08-25-2024 HCG ( test) Ql 10 mIU/mL High <4 [facility] Comment on above: hCG levels with Gest ational AgeGestational Age hCG mIU/mL (IU/L)0.2 - 1 week 5 - 501-2 weeks 50 - 5002-3 weeks 100 - 19012-1 weeks 500 - 697657-6 weeks 1000 - 550000-9 weeks 91184 - 100,0006-8 weeks 22716 - 200,0002-3 months 77229 - 100,000 hCG Titer Quant., Serumon HCG QUANT. 10 mIU/mL High 1-3 [facility] Comment on above: Order Comment: PT CINTIA D NOT WANT TO DO DR GALLEGOS ORDERS THAT ARE INTERNAL. Result Comment: hCG levels with Gestational Age Gestational Age hCG mIU/mL (IU/L) 0.2 - 1 week 5 - 50 1-2 weeks 50 - 500 2-3 weeks 100 - 5000 3-4 weeks 500 - 87486 4-5 weeks 1000 - 36994 5-6 weeks 13323 - 100,000 6-8 weeks 72279 - 200,000 2-3 months 58229 - 100,000 Performed By: #### L 700.8000 #### [facility] [address] [place], [address] Cctv Technician Office Visit Reporton 08-23-2024 Cctv Technician Office Visit Report [facility] [address], [address] [place] [address] OFFICE VISIT Date of Service: 08/23/24 MR#: [id number] Acct: [id number] Name: DEMARCUS ABAD Rep #: [id number] : 1990 Provider: SULLY Boudreaux ams Age/Sex: 34/F Location: [facility] Status: Signed Intake Vital Signs 08/23/24 09:05 08/23/24 15:14 Height 5 ft 2 in 5 ft 2 in Weight: 166 lb BMI 30.3 BP 119/77 Intake Visit Reasons: 5w6d light brown spotting in early Chief Complaint: Spotting Is patient in pain?: Yes (abdominal cramping) Allergies Penicillins Allergy (Unknown, Verified 08/23/24 15:21) Unknown Medications ???Medication ???Instructions ???Recorded ???Confirmed ???Type ferrous sulfate 325 mg (65 mg 325 mg PO DAILY 09/05/23 08/23/24 History iron) tablet (Feosol) docosahexaenoic acid 200 mg mg PO 08/23/24 08/23/24 History capsule ( DHA) [facility] Medical History Abnormal glucose Anemia HPV (human papilloma virus) infection Nodular goiter Pre-eclampsia Thyroid disorder Surgical History History of colposcopy Family History Mother Hypertension Father Diabetes Aunt Thyroid disorder Social History adopted: No household members: spouse and children number of children: 2 pets and animals: Yes (no litter box) pets and animals: cat(s) Smoking Status: Never smoker alcohol intake: never substance use type: does not use HPI 5w6d light brown spotting in early Details: DEMARCUS ABAD is a 34 year old who presents for spotting and cramping since of last week after having positive UPT at home 2 weeks ago. Spotting started light but has gotten heavier over the last couple days. HCG today was 28. plan repeat in 48 hours. Female Reproductive History Last Menstrual Period: 07/13/24 Cycle Length: 21-35 Questions: sexually active: Yes History 2 Elective abortions Hx Para 2 Spontaneous abortions Hx # Term Pregnancies Ectopic pregnancies Hx # Pregnancies 2 Multiple births # of living children 2 Past Pregnancies Del. Date Name GA/Weeks Outcome Route Bth Weight Gen Labor Lgth Anesthesia Del Locatn Provider FOB 04/30/08 Shlomo 36 live - 6# Male epidural [facility] Taye 08/08/21 Emalie 36 live - 6lbs [address] [facility] Vand e Velde Delivery Date: 04/30/08 Last Updated by: Cassidy Aguirre AIRLINE MECHANIC, AIRLINE MECHANIC-C Induced to preeclampsia, teen Delivery Date: 08/08/21 Last Updated by: Ashley FLORES pre-e ROS Const Constitutional: Reports system reviewed and no additional complaints, except as documented Cardio Card: Reports system reviewed and no additional complaints, except as documented Resp Resp: Reports system reviewed and no additional complaints, except as documented GI GI: Reports system reviewed and no additional complaints, except as documented : Reports system reviewed and no additional complaints, except as documented Skin Skin/Breast: Reports system reviewed and no additional complaints, except as documented Neuro Neuro: Reports system reviewed and no additional complaints, except as documented Psych Psych: Reports system reviewed and no additional complaints, except as documented Exam Const General: cooperative, healthy appearing, comfortable and no acute distress Orientation: alert, awake and oriented x3 Neck Neck: normal visual inspection and full ROM Resp Effort Inspection: normal respiratory effort, able to speak in complete sentences and symmetric chest movement GI Inspection: normal to inspection Palpation: soft Skin General: no rashes or lesions noted Neuro General: patient alert, patient awake and patient oriented x3 Cognition: normal cognition Speech: speech normal Gait: normal gait Extrem General: normal to inspection and full ROM Psych Appearance: grossly normal and well kempt Mental Status: mental status grossly normal Affect: normal affect Speech and Movement: speech and movement normal Attitude: cooperative Thought Process: normal Thought Content: normal Judgment: judgment good Coding Level of Care Code Off vis,est,level 3 Diagnoses Spotting in early O26.859 Assessment and Plan Assessment and Plan (1) Spotting in early : Status: Acute Plan: repeat HCG on friday-management pending results bleeding precautions RTO PRN/annual 08/23/24 1608 Date Lyssa Aguila CN Cosigner Signature: Date __ (more content not included)... Normal [facility] Serum human chorionic gonado tropin detection for pregnancyOrdered By: Lyssa Aguila on 08-23-2024 HCG ( test) Ql 28 mIU/mL High <4 [facility] Comment on above: hCG levels with Gest ational AgeGestational Age hCG mIU/mL (IU/L)0.2 - 1 week 5 - 501-2 weeks 50 - 5002-3 weeks 100 - 40851-4 weeks 500 - 344279-3 weeks 1000 - 655073-4 weeks 95915 - 100,0006-8 weeks 28461 - 200,0002-3 months 24201 - 100,000 hCG Titer Quant., Serumon HCG QUANT. 28 mIU/mL High 1-3 [facility] Comment on above: Order Comment: viabi lity Result Comment: hCG levels with Gestational Age Gestational Age hCG mIU/mL (IU/L) 0.2 - 1 week 5 - 50 1-2 weeks 50 - 500 2-3 weeks 100 - 5000 3-4 weeks 500 - 35705 4-5 weeks 1000 - 91231 5-6 weeks 96891 - 100,000 6-8 weeks 22500 - 200,000 2-3 months 51880 - 100,000 Performed By: #### L 700.8000 #### [facility] [address] [place], [address] Laboratory - Chemistry and C hemistry - challengeOrdered By: Denis Galdamez on 03-11-2023 Free T4 [Mass/Vol] 0.96 ng/dL 0.76-1.46 [facility] No Panel InformationOrdered By: Denis Galdamez on 03-11-2023 Free Triiodothyronine (T3) pg/dL 3.2 pg/mL 2.18-3.98 [facility] Thyroid Stimulating Hormone (TSH) 0.41 uIU/mL 0.358-3.74 [facility] Serum or plasma thyroperoxid ase antibody assay (units/volume)Ordered By: Denis Galdamez on 03-11-2023 TPO Ab Qn 10 [IU]/mL 0-34 [facility] Comment on above: Performed at: [address] [id number] Director: Robert Peters PhD, Phone: [phone] PREGUon 09-19-2022 HCG ( test) Ql (U) Negative Normal [facility] ([place]) Comment on above: Performed By: #### P REGU #### [address] [address] test (u) int Not detected Invalid Interpretation Code [facility] ([place]) Comment on above: Performed By: #### P REGU #### [place] [address] [address] Laboratory - Chemistry and C hemistry - challengeon 03-15-2022 Free T4 [Mass/Vol] 0.99 ng/dL 0.76-1.46 [facility] Work Phone: No Panel Informationon 03-15 Free Triiodothyronine (T3) pg/dL 3.3 pg/mL 2.18-3.98 [facility] Work Phone: Thyroid Stimulating Hormone (TSH) 0.34 uIU/mL 0.358-3.74 [facility] Work Phone: CNPNon 12-27-2020 CNPN Telephone (OBGYWM) DEMARCUS TAMEZ ([id number]) 1990 F Date Time Provider Department 12/27/20 KANCHAN PADILLA During your visit today, we recorded the following information about you: Lorenza Zheng RN 12/27/2020 11:38 AM Signed LMP sometime around first 2 weeks of November. Could be between 5-7 weeks gestation. She has a very physically demanding job. Had to leave last night because she started cramping and couldn't lift/complete her job duties d/t the discomfort. Last night cramping was 5/10 on pain scale. Today she is only having minimal mild cramping. No bleeding or discharge. Do you want hcg quants or u/s first? She does want to discuss with provider about her job and if note for light work duty is possible too. Please advise. Lorenza Padilla MD 12/27/2020 12:25 PM Signed There are no lifting restrictions in the first trimester, it will not cause a miscarriage to do her normal job activities. we should get serial quants and go from there. ORder in. MD Faina Myles RN 12/27/2020 12:45 PM Signed Attempted to leave message but mailbox full and unable to leave message. Please attempt to call patient back. Faina Agudelo RN 12/27/2020 3:30 PM Signed 2nd attempt to call patient-mailbox full. Unable to leave message Lorenza Zheng RN 12/28/2020 11:06 AM Signed Attempted to call patient. Unable to leave message. UniPay[employer] message sent. Lorenza Zheng RN Allergies As of Date: 12/27/2020 Noted Allergy Reaction BUPROPION 05/16/2016 5 - Intolerance Comments: headache PENICILLINS 05/27/2005 Date Reviewed: 10/30/2020 Reviewed by: Yanique Gil LPN - Fully Assessed Reason for Visit: Early OB Cramping [Other] Primary Visit Diagnosis:Pelvic pain during [O26.899, R10.2] Order(s):HCG QUANTITATIVE [SQHCGQT] Order #: [id number] STANDING Prescriptions as of 12/27/2020 Sig: -1 ORAL Take by mouth. Problem List As Of Date 12/27/2020 Noted Resolved Thyroid goiter [E04.9] 12/30/2014 Anemia [D64.9] 01/16/2015 08/16/2016 Attention and concentration deficit [R41.840] 04/19/2015 Iron deficiency anemia secondary to inadequate *04/19/2015 Encounter Status:Closed by [facility] (ALEWS) DEMARCUS TAMEZ ([id number]) 1990 F Date Time Provider Department 11/01/20 CARL CHINO During your visit today, we recorded the following information about you: Carl Chino MD 11/01/2020 12:05 PM Signed Slightly anemic. Most likely due to periods. Ifs he is taking her prenates with iron that should help. Can consider rechecking cbc and iron in one month Yanique Gil LPN 11/01/2020 1:33 PM Signed Patient notified. Allergies As of Date: 11/01/2020 Noted Allergy Reaction BUPROPION 05/16/2016 5 - Intolerance Comments: headache PENICILLINS 05/27/2005 Date Reviewed: 10/30/2020 Reviewed by: Yanique Gil LPN - Fully Assessed Reason for Visit: Results [95] Primary Visit Diagnosis:Anemia, unspecified type [D64.9] Order(s):CBC + DIFF [SQCBCDIF] Order #: [id number] FUTURE IRON + TIBC [SQIRON] Order #: [id number] FUTURE Prescriptions as of 11/01/2020 Sig: -1 ORAL Take by mouth. Problem List As Of Date 11/01/2020 Noted Resolved Thyroid goiter [E04.9] 12/30/2014 Anemia [D64.9] 01/16/2015 08/16/2016 Attention and concentration deficit [R41.840] 04/19/2015 Iron deficiency anemia secondary to inadequate *04/19/2015 Encounter Status:Closed by YANIQUE GIL LPN on 11/01/20 Normal [facility] CBC and Differentialon 10-31 Abs Baso 0.03 k/uL Normal <0.11 [facility] Comment on above: Performed By: #### Dae MALDONADO CMP #### [facility] [address] [place], [place] [id number] Abs Sanders 0.50 k/uL Normal <0.87 [facility] Comment on above: Performed By: #### C EIRCA, CMP #### [facility] [address] [place], [place] [address] Abs Neut 2.90 k/uL Normal 1.45-7.50 [facility] Comment on above: Performed By: #### C ERICA CMP #### [facility] [address] [place], [place] [address] Absolute nRBC <0.01 Normal <0.01 [facility] Comment on above: Performed By: #### C BCNAYAN CMP #### [facility] [address] [place] [id number] Basophils/100 WBC (Bld) 0.5 % Normal [facility] Comment on above: Performed By: #### C BCDIF, CMP #### [place] [address] [place] [address] DTYPE Auto Diff Normal [facility] Comment on above: Performed By: #### C BCDIF, CMP #### [place] [address] Eosinophils (Bld) [#/Vol] 0.12 10*3/uL Normal <0.46 [facility] Comment on above: Performed By: #### C BCDIF, CMP #### [place] [address] Eosinophils/100 WBC (Bld) 1.9 % Normal [facility] Comment on above: Performed By: #### C BCDIF, CMP #### [place] [address] Erythrocyte distribution width (RBC) [Ratio] 14.6 % Normal 11.5-15.0 [facility] Comment on above: Performed By: #### C BCDIF, CMP #### [place] [address] Hematocrit (Bld) [Volume fraction] 37.2 % Normal 36.0-46.0 [facility] Comment on above: Performed By: #### C BCDIF, CMP #### [place] [address] Hemoglobin (Bld) [Mass/Vol] 11.1 g/dL Low 11.5-15.5 [facility] Comment on above: Performed By: #### C BCDIF, CMP #### [place] [id number] Lymphocytes (Bld) [#/Vol] 2.78 10*3/uL Normal 1.00-4.00 [facility] Comment on above: Performed By: #### C BCDIF, CMP #### [place] [address] [place], [place] [address] Lymphocytes/100 WBC (Bld) 43.8 % Normal [facility] Comment on above: Performed By: #### C BCDIF, CMP #### [place] [address] MCH 24.9 pG Low 26.0-34.0 [facility] Comment on above: Performed By: #### C BCDIF, CMP #### [place] [address] MCHC (RBC) [Mass/Vol] 29.8 g/dL Low 30.5-36.0 [facility] Comment on above: Performed By: #### C BCDIF, CMP #### [place] [address] MCV (RBC) [Entitic vol] 83.4 fL Normal 80.0-100.0 [facility] Comment on above: Performed By: #### C BCDIF, CMP #### [address] [address] Monocytes/100 WBC (Bld) 7.9 % Normal [facility] Comment on above: Performed By: #### C BCDIF, CMP #### [place] [address] [place], [place] [address] Neutrophils/100 WBC (Bld) 45.9 % Normal [facility] Comment on above: Performed By: #### C BCDIF, CMP #### [address] [address] NRBCs 0.0 /100 WBC Normal 0 [facility] Comment on above: Performed By: #### C BCDIF, CMP #### [address] [place] [address] Platelet mean volume (Bld) [Entitic vol] 10.3 fL Normal 9.0-12.7 [facility] Comment on above: Performed By: #### C BCDIF, CMP #### [facility] [address] [place], [place] [address] Platelets (Bld) [#/Vol] 304 10*3/uL Normal 150-400 [facility] Comment on above: Performed By: #### C BCDIF, CMP #### [facility] [address] [place] [address] RBC (Bld) [#/Vol] 4.46 10*6/uL Normal 3.90-5.20 [facility] Comment on above: Performed By: #### C BCDIF, CMP #### [facility] [address] [place] [address] WBC (Bld) [#/Vol] 6.35 10*3/uL Normal 3.70-11.00 [facility] Comment on above: Performed By: #### C BCDIF, CMP #### [place] [address] [place] [id number] [facility] 10-31-[facility] DEMARCUS [facility]AME[facility] ([id number]) 1990 F Date Time Provider Department 10/31/20 Ashly [facility] During your visit today, we recorded the following information about you: DARIN Appiah 10/31/2020 5:21 PM Signed Please advise d-dimer was negative. Thanks, CARSON Elizabeth Ma 10/31/2020 5:25 PM Signed Pt notified Allergies As of Date: 10/31/2020 Noted Allergy Reaction BUPROPION 05/16/2016 5 - Intolerance Comments: headache PENICILLINS 05/27/2005 Date Reviewed: 10/30/2020 Reviewed by: Yanique Gil LPN - Fully Assessed Reason for Visit: Results [95] Prescriptions as of 10/31/2020 Sig: -1 ORAL Take by mouth. Problem List As Of Date 10/31/2020 Noted Resolved Thyroid goiter [E04.9] 12/30/2014 Anemia [D64.9] 01/16/2015 08/16/2016 Attention and concentration deficit [R41.840] 04/19/2015 Iron deficiency anemia secondary to inadequate *04/19/2015 Encounter Status:Closed by ANMOL ARGUELLO MA on 10/31/20 Normal [facility] Comp Metabolic Panelon 10-31 Albumin [Mass/Vol] 4.3 g/dL Normal 3.9-4.9 [facility] Comment on above: Performed By: #### C BCDIF, CMP #### [facility] [address] [place], [place] [id number] ALP [Catalytic activity/Vol] 57 U/L Normal 34-123 [facility] Comment on above: Performed By: #### C BCDIF, CMP #### [facility] [address] [place], [place] [address] ALT [Catalytic activity/Vol] 13 U/L Normal 7-38 [facility] Comment on above: Performed By: #### C BCDIF, CMP #### [facility] [address] [place], [place] [address] Anion gap [Moles/Vol] 12 mmol/L Normal 9-18 [facility] Comment on above: Performed By: #### C BCDIF, CMP #### [facility] [address] [place], [place] [address] AST [Catalytic activity/Vol] 28 U/L Normal 13-35 [facility] Comment on above: Performed By: #### C BCDIF, CMP #### [facility] [address] [place] [address] Bilirubin [Mass/Vol] mg/dL Low 0.2-1.3 [facility] Comment on above: Performed By: #### C BCDIF, CMP #### [place] [address] [place] [address] Calcium [Mass/Vol] 9.3 mg/dL Normal 8.5-10.2 [facility] Comment on above: Performed By: #### C BCDIF, CMP #### [place] [address] Chloride [Moles/Vol] 105 mmol/L Normal 97-105 [facility] Comment on above: Performed By: #### C BCDIF, CMP #### [place] [phone] CO2 [Moles/Vol] 23 mmol/L Normal 22-30 [facility] Comment on above: Performed By: #### C BCDIF, CMP #### [place] [phone] Creatinine [Mass/Vol] 0.82 mg/dL Normal 0.58-0.96 [facility] Comment on above: Performed By: #### C BCDIF, CMP #### [place] [address] eGFR- Amer. >60 Normal [facility] Comment on above: Performed By: #### C BCDIF, CMP #### [place] [address] eGFR-All Other Races >60 Normal [facility] Comment on above: Result Comment: eGFR (Estimated GFR) Units of measure: mL/min/1.73 meters squared eGFR is derived from the reexpressed MDRD Study equation using the following parameters: serum creatinine, age, gender and race. The creatinine assay has been calibrated to be traceable to IDMS. An eGFR <60 mL/min/1.73m2 for >3 months is consistent with chronic kidney disease. Refer to KDOQI guidelines for clinical interpretation. In patients with unstable renal function, e.g. those with acute kidney injury, the eGFR may not accurately reflect actual GFR. Performed By: #### C BCDIF, CMP #### [facility] [address] [place], [place] [address] Glucose [Mass/Vol] 76 mg/dL Normal 74-99 [facility] Comment on above: Result Comment: The [place] [employer] (ADA) provides guidance for cutoff values for fasting glucose and random glucose. The ADA defines fasting as no caloric intake for at least 8 hours. Fasting plasma glucose results between 100 to 125 mg/dL indicate increased risk for diabetes (prediabetes). Fasting plasma glucose results greater than or equal to 126 mg/dL meet the criteria for diagnosis of diabetes. In the absence of unequivocal hyperglycemia, results should be confirmed by repeat testing. In a patient with classic symptoms of hyperglycemia or hyperglycemic crisis, random plasma glucose results greater than or equal to 200 mg/dL meet the criteria for diagnosis of diabetes. Reference: Standards of Medical Care in Diabetes 2016, [place] [employer]. Diabetes Care. 2016.39(Suppl 1). Performed By: #### C BCDIF, CMP #### [facility] [address] [place], [place] [address] Potassium [Moles/Vol] 3.9 mmol/L Normal 3.7-5.1 [facility] Comment on above: Performed By: #### C BCDIF, CMP #### [facility] [address] [place], [place] [address] Protein [Mass/Vol] 7.0 g/dL Normal 6.3-8.0 [facility] Comment on above: Performed By: #### C BCDIF, CMP #### [facility] [address] [place], [place] [address] Sodium [Moles/Vol] 140 mmol/L Normal 136-144 [facility] Comment on above: Performed By: #### C BCDIF, CMP #### [facility] [address] [place], [place] [phone] Urea nitrogen [Mass/Vol] 11 mg/dL Normal 7-21 [facility] Comment on above: Performed By: #### C BCDIF, CMP #### [facility] [address] [place], [place] [phone] D dimeron 10-31-2020 D dimer Test sent to [facility]. Normal <500 [facility] Comment on above: Result Comment: Acco unt Credited ZINA CNOVon 10-30-2020 CNOV Office Visit (MAGDALENOPWS ) DEMARCUS TAMEZ ([id number]) 1990 F Date Time Provider Department 10/30/20 6:00 PM CARL CHINO During your visit today, we recorded the following information about you: Pulse Blood pressure Weight 80/minute 102/72 58.5 kg Carl Chino MD 10/30/2020 7:08 PM Signed Patient presents with: Chest Pain: feels a pressure in her heart Numbness: in her left HPI: Patient presents today for office visit for acute visit. Had lightheadedness several months ago. None now. Complains of chest pressure over the last year. She gets numbness of left arm when it happens. Did not get it looked at when it started. She thinks it is job related. She switched positions and seems to be improving. No change with exertion. Happens a few times a week. Last time was last night. Lasts for a few hours. No shortness of breath with it. No cough. Some worsening with deep breath. Sometimes does not. No nausea. No vomiting. Does not get palpitations. Had those in 2018 and had an echo and a holter back then. No heartburn. Stopped ocd's last month. LMP was just a few days ago. Was normal. No edema. No no calf tenderness. Has some neck pain. Can get discomfort when the arm numb. Can change with positions. No hx of dvt or pe. She feels it is stress related and does not want meds. They are going to start trying to have children. She did not follow up on her thyroid nodule from 2018. She was told to see surgery and did not. Reinforced importance of follow up. No changes in neck with swelling or pain. CONCLUSIONS: - Technically difficult exam due to body habitus. - Exam indication: Palpitations - The left ventricle is normal in size. There is no left ventricular hypertrophy. Left ventricular systolic function is normal. EF = 64 ? 5% (2D biplane) Normal left ventricular diastolic function. - The right ventricle is normal in size. Right ventricular systolic function is normal. - There are no significant valvular abnormalities. - The patient has not had a prior CC echocardiographic exam for comparison. MEDICATIONS: Current Outpatient Medications Medication Sig - 25/iron fum/folic/dha (-1 ORAL) Take by mouth. No current facility-administered medications for this visit. ALLERGIES: ALLERGIES Allergen Reactions - Bupropion Intolerance headache - Penicillins PAST MEDICAL HISTORY Diagnosis Date - NEGATIVE MEDICAL HISTORY PAST SURGICAL HISTORY Procedure Laterality Date - NONE FAMILY HISTORY Problem Relation Age of Onset - No Known Problems Mother - Diabetes Father - No Known Problems Sister - Cancer Maternal Grandmother skin cancer - No Known Problems Maternal Grandfather - No Known Problems Paternal Grandmother - No Known Problems Paternal Grandfather Social History Tobacco Use - Smoking status: Never Smoker - Smokeless tobacco: Never Used Vaping Use - Vaping Use: Never used Substance Use Topics - Alcohol use: Never - Drug use: No Reviewed current medications, allergies, past medical history, surgical history, family history and social history today. REVIEW OF SYSTEMS All other reviewed and negative other than HPI. HEALTH MAINTENANCE: Reviewed health maintenance issues today VITALS: BP 102/72 Pulse 80 Wt 58.5 kg (129 lb) LMP 06/30/2020 (Within Days) BMI 23.03 kg/m? Last 4 Encounter Wt Readings: Date: Wt: 10/30/2020 58.5 kg (129 lb) 07/12/2020 59.4 kg (131 lb) 04/10/2020 60.3 kg (133 lb) 04/22/2018 63.5 kg (140 lb) PHYSICAL EXAMINATION: General appearance: Well appearing, alert, in no acute distress, well-hydrated, well nourished. Skin: Skin color, texture, turgor normal, no suspicious rashes or lesions Head: Normocephalic, no masses, lesions, tenderness or abnormalities Eyes: Anicteric sclera. Pupils are equally round and reactive to light. Extraocular movements are intact. Neck: supple. Some thyromegaly. Right side larger than left. Lungs: Lungs clear to auscultation. No wheezing, rhonchi, rales Heart: RRR without murmur, gallop, or rubs. No ectopy Abdomen: Normal abdominal exam, Abdomen soft, non-tender. Bowel sounds normal. No masses, organomegaly Extremities: No deformities, edema, skin discoloration, clubbing or cyanosis. Good capillary refill. Musculoskeletal: No joint swelling, deformity, or tenderness Some anxiety ASSESSMENT/PLAN: 1. Chest pain, unspecified type - ICD9: 786.50, ICD10: R07.9 (primary diagnosis) - may well be anxiety related. I do not have a lab this evening. Since is currently not having symptoms, can do labs in am. Reinforced need to at least do minimal work up. Does not sound cardiac on description. May well Be anxiety driven. - ECG COMPLETE - CBC + DIFF - COMP METABOLIC PANEL - TSH BLD - D-DIMER - XR CHEST 2V FRONTAL/LAT 2. Thyroid nodu (more content not included)... Normal [facility] CNOVon 09-11-2020 CNOV Office Visit (UCWSTR ) DEMARCUS TAMEZ ([id number]) 1990 F Date Time Provider Department 09/11/20 8:45 AM JACEY GALDAMEZ) [facility] During your visit today, we recorded the following information about you: Jacey Galdamez APRN.JER 09/11/2020 9:25 AM Signed Subjective Patient triaged in express care. Patient presenting with intermittent dizziness, left chest pain, left arm numbness for months. Denies cardiac history. Discussed limitations of express care, I will refer to family medicine. Patient appears in on distress today. I advised if s/s become severe needs to go to ER. Referring Provider: SELF [200] Allergies As of Date: 09/11/2020 Noted Allergy Reaction BUPROPION 05/16/2016 5 - Intolerance Comments: headache PENICILLINS 05/27/2005 Date Reviewed: 07/12/2020 Reviewed by: Cass Dominguez Ma - Fully Assessed Primary Visit Diagnosis:Left chest pressure [R07.89] Prescriptions as of 09/11/2020 Sig: XULANE 150 MCG-35 MCG/24 HR T* Apply 1 Patch as directed one* Problem List As Of Date 09/11/2020 Noted Resolved Thyroid goiter [E04.9] 12/30/2014 Anemia [D64.9] 01/16/2015 08/16/2016 Attention and concentration deficit [R41.840] 04/19/2015 More... Iron deficiency anemia secondary to inadequate *04/19/2015 Encounter Status:Closed by JACEY GALDAMEZ CNP on 09/11/20 Normal [facility] Vital Signs Date Time Vital Sign Value Performing Clinician Chetan oswald 12-27-2024 09:51-0400 Body height 157.[address] Beatriz Escobar MD Work Phone: [facility] 12-27-2024 09:51-0400 Body mass index (BMI) [Ratio] 30.3 kg/m2 Dr. Beatriz Escobar MD Work Phone: [facility] 12-27-2024 09:51-0400 Body weight 75.[address] Beatriz Escobar MD Work Phone: [facility] 12-27-2024 09:51-0400 Diastolic blood pressure 73 mm[Hg] Dr. Beatriz Escobar MD Work Phone: [facility] 12-27-2024 09:51-0400 Systolic blood pressure 115 mm[Hg] Dr. Beatriz Escobar MD Work Phone: 5(660)834-560474 [place] [address] 11-24-2024 12:59-0400 Body height 157.[address] Beatriz Escobar MD Work Phone: 7(051)593-644705 [place] [address] 11-24-2024 12:59-0400 Body mass index (BMI) [Ratio] 30.8 kg/m2 Dr. Beatriz Escobar MD Work Phone: 7(066)743-252174 [place] [address] 11-24-2024 12:59-0400 Body weight 76.[address] Beatriz Escobar MD Work Phone: 3(641)[phone] [place] [address] 11-24-2024 12:59-0400 Diastolic blood pressure 74 mm[Hg] Dr. Beatriz Escobar MD Work Phone: 7(023)852-963405 [place] [address] 11-24-2024 12:59-0400 Systolic blood pressure 108 mm[Hg] Dr. Beatriz Escobar MD Work Phone: 8(581)[phone] [place] [address] 08-23-2024 15:14-0500 Body mass index (BMI) [Ratio] 30.3 kg/m2 Dr. Betariz Escobar MD Work Phone: 6(771)208-369805 [place] [address] 08-23-2024 15:14-0500 Body weight 75.[address] Beatriz Escobar MD Work Phone: 4(803)430-471005 [place] [address] 08-23-2024 15:14-0500 Diastolic blood pressure 77 mm[Hg] Dr. Beatriz Escobar MD Work Phone: 5(115)782-803705 [place] [address] 08-23-2024 15:14-0500 Systolic blood pressure 119 mm[Hg] Dr. Beatriz Escobar MD Work Phone: 4(886)392-103605 [place] [address] 10-29-2022 14:07-0400 Body height 157.[address] Antony Escobar Work Phone: 6(740)726-343205 [place] [address] 10-29-2022 14:07-0400 Body mass index (BMI) [Ratio] 29.6 kg/m2 Dr. Antony Escobar Work Phone: 2(108)257-369401 [address] 10-29-2022 14:07-0400 Body weight 73.[address] Antony Escobar Work Phone: [facility] 10-29-2022 14:07-0400 Diastolic blood pressure 72 mm[Hg] Dr. Antony Escobar Work Phone: [facility] 10-29-2022 14:07-0400 Systolic blood pressure 111 mm[Hg] Dr. Antony Escobar Work Phone: [facility] 09-06-2022 08:06-0500 Blood Pressure Location HOWARD SUPPAN DPM [facility] 09-06-2022 08:06-0500 Body height 157.5 cm HOWARD SUPPAN DPM [facility] 09-06-2022 08:06-0500 Body weight 68.2 kg HOWARD SUPPAN DPM [facility] 09-06-2022 08:06-0500 Body weight 27.49 kg/m2 HOWARD SUPPAN DPM [facility] 09-06-2022 08:06-0500 Diastolic Blood Pressure Non-Invasive 76 1 HOWARD SUPPAN DPM [facility] 09-06-2022 08:06-0500 Heart rate 73 /min HOWARD SUPPAN DPM [facility] 09-06-2022 08:06-0500 Respiratory rate 20 /min HOWARD SUPPAN DPM [facility] 09-06-2022 08:06-0500 Systolic Blood Pressure Non-Invasive 98 1 HOWARD SUPPAN DPM [facility] 07-11-2022 15:11-0500 Body mass index (BMI) [Ratio] 28.9 kg/m2 Dr. Antony Escobar Work Phone: [facility] 07-11-2022 15:11-0500 Body temperature 95.8 [degF] Dr. Antony Escobar Work Phone: [facility] 07-11-2022 15:11-0500 Body weight 71.[address] Antony Escobar Work Phone: [facility] 07-11-2022 15:11-0500 Diastolic blood pressure 73 mm[Hg] Dr. Antony Escobar Work Phone: [facility] 07-11-2022 15:11-0500 Heart rate 65 /min Dr. Antony Escobar Work Phone: [facility] 07-11-2022 15:11-0500 Respiratory rate 18 /min Dr. Antony Escobar Work Phone: [facility] 07-11-2022 15:11-0500 SaO2% (BldA) [Mass fraction] 97 % Dr. Antony Escobar Work Phone: [facility] 07-11-2022 15:11-0500 Systolic blood pressure 106 mm[Hg] Dr. Antony Escobar Work Phone: [facility] Encounters Encounter Date Encounter Type Care Provider Facility Start: 12-27-2024 End: 12-27-2024 Patient encounter procedure Cassidy Aguirre AIRLINE MECHANIC-C -[facility] Work Phone: Start: 12-27-2024 End: 12-27-2024 ambulatory Cassidy Aguirre NP Facility:[facility] Start: 11-24-2024 End: 11-24-[address] Beatriz Escobar MD Work Phone: [facility] Work Phone: Start: 11-24-2024 End: 11-24-2024 Patient encounter procedure Lyssa Aguila CNM -[facility] Work Phone: Start: 11-24-2024 End: 11-24-2024 Patient encounter procedure Lyssa Aguila CNM -[facility] Work Phone: Start: 11-24-2024 End: 11-24-[address] Beatriz Escobar MD Work Phone: [facility] Work Phone: Start: 11-24-2024 End: 11-24-2024 ambulatory Beatriz Escobar Facility:[facility] Start: 08-25-2024 End: 08-25-2024 Patient encounter procedure Lyssa Aguila CNM -[facility] Start: 08-25-2024 End: 08-25-2024 ambulatory Lyssa Mingo Facility:[facility] Start: 08-23-2024 End: 08-23-2024 Patient encounter procedure Lyssa Mingo CNM -[facility] Work Phone: Start: 08-23-2024 End: 08-23-2024 ambulatory Lyssa Aguila Facility:[facility] Start: 08-23-2024 End: 08-23-2024 Patient encounter procedure Lyssa Aguila CNM -[facility] Start: 08-23-2024 End: 08-23-2024 ambulatory Beatriz Escobar Facility:[facility] Start: 03-11-2023 End: 03-11-2023 ambulatory [facility] Work Phone: Start: 03-11-2023 End: 03-11-2023 Patient encounter procedure [facility], [facility] Start: 10-29-2022 End: 10-29-[address] Antony Escobar Work Phone: [facility] Work Phone: Start: 10-29-2022 End: 10-29-[address] Antony Escobar Work Phone: [facility]-Laboratory, Specimen Start: 10-29-2022 End: 10-29-[address] Antony Escobar Work Phone: [facility] Start: 09-19-2022 End: 09-19-2022 ambulatory HOWARD FOLEY DPM Facility:[facility] Start: 09-06-2022 End: 09-07-2022 ambulatory HOWARD FOLEY DPM Facility:[facility] Start: 09-06-2022 End: 09-06-2022 Admission to establishment HOWARD FOLEY DPM [facility] Start: 07-11-2022 End: 07-11-[address] Antony Escobar Work Phone: [facility] Start: 03-15-2022 End: 03-15-2022 ambulatory [facility] Work Phone: Start: 03-15-2022 End: 03-15-2022 Patient encounter procedure [facility] Start: 03-14-2022 End: 03-14-2022 ambulatory [facility] Work Phone: Start: 03-14-2022 End: 03-14-2022 Patient encounter procedure [facility]-Ultrasound, [facility] Procedures Date Procedure Procedure Detail Performing Clinician Start: 11-24-[address] Broderick Escobar MD Work Phone: Start: 03-14-2022 US scan of thyroid Structure of wisdom tooth (body structure) HOWARD FOLEY DPM Plan of Treatment Date Care Activity Detail Author Start: 12-27-2024 CBC W Auto Different ial panel - Blood [facility] Start: 12-27-2024 Comprehensive metabo lic 2000 panel - Serum or Plasma [facility] Start: 12-27-2024 Hemoglobin A1c/Hemog lobin.total in Blood [facility] Start: 12-27-2024 Hepatitis C antibody measurement [facility] Start: 12-27-2024 Rubella IgG measurement [facility] Start: 12-27-2024 Serologic test for syphilis [facility] Start: 12-27-2024 Thyroid stimulating hormone measurement [facility] Start: 12-27-2024 [facility] Start: 12-27-2024 Procedure [facility] Start: 10-29-2022 Liquid based cervica l cytology screening [facility] Alanine aminotransfe rase [Enzymatic activity/volume] in Serum or Plasma [facility] Albumin [Mass/volume ] in Serum or Plasma [facility] Alkaline phosphatase [Enzymatic activity/volume] in Serum or Plasma [facility] Anion gap in Serum or Plasma [facility] Bilirubin, total measurement [facility] BUN/Creatinine ratio [facility] Calcium [Mass/volume ] in Serum or Plasma [facility] Carbon dioxide, tota l [Moles/volume] in Central venous blood [facility] CBC W Auto Different ial panel - Blood [facility] Chlamydia deoxyribon ucleic acid detection [facility] Comprehensive metabo lic 2000 panel - Serum or Plasma [facility] Creatinine [Mass/vol ume] in Serum or Plasma [facility] Erythrocyte mean cor puscular volume determination [facility] Glucose [Mass/volume ] in Serum or Plasma [facility] Hematocrit [Volume F raction] of Blood [facility] Hemoglobin [Mass/volume] in Blood [facility] Hemoglobin A1c/Hemog lobin.total in Blood [facility] Hepatitis B virus elmore rface Ag [Presence] in Serum [facility] Hepatitis C antibody measurement [facility] Leukocytes [#/volume] in Blood [facility] Mean corpuscular hem oglobin concentration determination [facility] Mean corpuscular hem oglobin determination [facility] Measurement of renal function [facility] Neutrophil count [facility] Neutrophil percent d ifferential count [facility] Path report.final Dx Spec [facility] Platelets [#/volume] in Blood [facility] Potassium measurement [facility] Protein/Creatinine [ Ratio] in Urine [facility] Red blood cell count [facility] Red cell distributio n width determination [facility] Rubella IgG measurement [facility] Serologic test for syphilis [facility] Serum chloride measurement [facility] Sodium measurement [facility] T4 free measurement [facility] Thyroid stimulating hormone measurement [facility] Thyroid stimulating hormone measurement [facility] Thyroperoxidase Ab [ Units/volume] in Serum or Plasma [facility] Total protein measurement [facility] Triiodothyronine, free measurement [facility] Urea nitrogen [Mass/ volume] in Serum or Plasma [facility] Payers Date Payer Category Payer Self-pay [id number] 2024 Unknown [id number] 2022 Unknown [id number] 1990 Unknown [id number] 1990 Unknown [id number] Unknown [facility] [id number] Unknown [id number] Unknown [id number] Unknown [id number] Unknown [id number] Unknown [id number] Unknown [id number] Social History Date Type Detail Facility Start: 09-19-2021 End: 10-29-2022 Tobacco smoking status NHIS Unknown if ever smoked [facility] Start: 1990 Sex Assigned At Female A [facility] Start: 09-06-2022 End: 11-12-2024 Tobacco smoking status Never smoked tobacco (finding) [facility] Functional Status Date Assessment Result Facility 09-06-2022 Functional Status Sensory Deficits None A [facility] Clinical Notes 09-11-2020 to 11-24-2024 Note Date & Type Note Facility 11-24-2024 Evaluation note Diagnosis Onset Date Resolution Advanced maternal age (AMA) in acute November 24 12:49pm Amenorrhea acute November 24, 2024 12:49pm History of anemia acute November 12:49pm History of colposcopy acute November 24, 2024 12:49pm History of miscarriage, currently acute November 24 12:49pm HPV test positive acute November 12:49pm Hx of varicose veins of lower extremity acute November 24, 2024 12:49pm Needle phobia acute November 24, 025 12:49pm Obesity affecting acute November 24, 2024 12:49pm acute November 24, 2024 12:49pm Supervision of high-risk acute November 24 12:49pm Thyroid nodule acute November 24, 2024 12:49pm Nodular goiter chronic November 24, 2024 12:49pm Advanced maternal age (AMA) in acute December 27 9:40am Amenorrhea acute December 27 9:40am History of anemia acute December 272024 9:40am History of colposcopy acute Dec 9:40am History of miscarriage, currently acute December 27 9:40am HPV test positive acute December 272024 9:40am Hx of varicose veins of lower extremity acute December 27, 2024 9:40am Needle phobia acute December 27, 2024 9:40am Obesity affecting acute December 27, 2024 9:40am acute December 27 9:40am Supervision of high-risk acute December 27 2 025 9:40am Thyroid nodule acute December 27, 2024 9:40am Nodular goiter chronic December 27, 2024 9:40am [facility] Work Phone: 1(491) 259-893805-21-2025 Progress [facility] [address] [place] [address], [address] [place] [address] OFFICE VISIT Date of Service: 11/24/24 MR#: [id number] Acct: [id number] Name: DEMARCUS ABAD Rep #: [id number] : 1990 Provider: SULLY Aguila Age/Sex: 34/F Location: [facility] Status: Signed Intake Vital Signs 08/23/24 15:14 11/24/24 12:59 Height 5 ft 2 in 5 ft 2 in Weight: 166 lb 168 lb 8 oz BMI 30.3 30.8 BP 119/77 108/74 Intake Visit Reasons: NOB LMP 09/27 Chief Complaint: New OB Waterproofer Required: No Is patient in pain?: No Allergies Penicillins Allergy (Unknown, Verified 11/24/24 12:57) Unknown Medications ?Medication ?Instructions ?Recorded ?Confirmed ?Type ferrous sulfate 325 mg (65 mg 325 mg PO DAILY 09/05/23 11/24/24 History iron) tablet (Feosol) multivit-min no.71-iron fum 28 cap PO 11/12/24 5 History mg-folate no.1 1 mg-dha 300 mg capsule (PNV-[place]) Last Menstrual Period: 09/27/24 : Yes PFSH PFSH Medical History Hx of varicose veins of lower extremity Depression Nodular goiter HPV (human papilloma virus) infection Thyroid disorder Pre-eclampsia Abnormal glucose Anemia Surgical History History of bunionectomy of right great toe [place] teeth extracted History of colposcopy Family History Mother Hypertension Father Diabetes Aunt Thyroid disorder Maternal- unknown type Social History adopted: No household members: spouse and children housing: house number of children: 2 service: No current occupational status: unemployed current occupation: [employer] pets and animals: Yes (no litter box) pets and animals: cat(s) history of recent travel: No sexually active: Yes Smoking Status: Never smoker alcohol intake: never substance use type: does not use well-balanced diet: daily or most days caffeine: No eating out: 1-3 times/week during the past year weight has: increased > 10 lbs what type of physical activity do you participate in: none [place]/evangelical: Evangelical seatbelt use: always do you feel safe at home: Yes additional social history: [employer] History 4 Elective abortions Hx Para 2 Spontaneous abortions 1 Hx # Term Pregnancies Ectopic pregnancies Hx # Pregnancies 2 Multiple births # of living children 2 Past Pregnancies Del. Date Name GA/Weeks Outcome Route Bth Weight Infant Gen Labor Lgth Anesthesia Del Locatn Provider FOB Unknown 08/2024 6 spontaneous 04/30/08 Shlomo 36 live - 6# Male epidural [facility] Taye 08/08/21 Emalie 36 live - 6lbs 14oz Female ep idural [facility] [place] Delivery Date: 04/30/08 Last Updated by: Cassidy Aguirre AIRLINE MECHANIC, AIRLINE MECHANIC-C Induced to preeclampsia, teen Delivery Date: 08/08/21 Last Updated by: Ashley Cortes IOL pre-e HPI NOB LMP 09/27 Details: DEMARCUS ABAD is a 34 year old who presents for New OB visit. OB Visit ROSE Calculator Estimated Delivery Date Method Current WG Current Estimate 07/04/25 LMP (Certain) 8w 2d Other Estimates 07/07/25 Ultrasound #1 7w 6d Comments: HIV: Urine Culture: Sequential Screen: NIPT Screen: Estimated Due Date: 09/27/24 Expected Delivery Route/Plan Labor Preferences- CB/BF classes: [] labor support person: [] labor intervention preferences: [] pain management options preferred: [] cut cord/dad catch: [] : [] PP control planned: [] discussed possible routes of delivery and associated risks: [] special requests: [] Specific Issue/Plans Covid status: [] Flu vaccine: [] Tdap vaccine: [] Rhogam: [] LARC form signed: [] Problem list reviewed and updated with the most current plan of care details and appropriate ordersplaced. Relevant counseling for the gestational age provided. Continue routine care and follow up unless otherwise noted in visit notes/problem list details Initial Weight: 168 lb Date -?-?-?-?-?-?-?-?-?-?-?-?- EGA Weight BP Urine Prot -?-?-?-?-?-?-?-?-?-?-?-?- Glucose FHR FuHt Pres Dilation -?-?-?-?-?-?-?-?-?-?-?-?- Effaced St Visit Note 11/24/24 -?-?-?-?-?-?-?-?-?-?-?-?- 8w 2d 168 lb 8 oz (+8 oz) 108/74 -?-?-?-?-?-?-?-?-?-?-?-?- 162 -?-?-?-?-?-?-?-?-?-?-?-?- KW- CRL cons wit h dates. accepts NIPT. Menstrual History Last Menstrual Period: 09/27/24 Reported LMP: definite Normal amount/duration: Yes Frequency in days: 28 On hormonal BC at conception: No hCG+: 10/29/24 Antepartum Record Genetic Screening: Congenital Heart Defect: Other, Neural Tube Defect: Other, Hemoglobinopathy Or Carrier: Other, Cystic Fibrosis: Other, Chromosome Abnormality: Other, Andrzej-Sachs: Other, Hemophilia: Other, Intellectual Disability/Autism: Partner (Grandfather Autism), Recurrent Loss/Stillbirth: Other, Other Structural Defect: Other, Other Genetic Disease: Other and Maternal Metabolic Disorder: Other Infection History: Live with someone with TB or Exposed to TB: No, Patient or Partner has history of Genital Herpes: No, Rash or Viral illness since last mentrual period: No, Prior GBS-Infected child: No, History of STD: No, HIV Infection: No, History of Hepatitis: No, Recent travel outside of [place]: No, Concern for hepatitis exposure: No, Varicella immune: Yes (immune- virus) and Covid Vaccinated: No Medical History Medical History: Positive: Depression/ depression (not on medication), Varicosities/phlebitis (varicose, left below the knee), Thyroid dysfunction (Thyroid nodule), Drug/latex allergies/reactions (PCN), Platform Power Technician surgery (Colposcopy), Operations/hospitalizations (wisdom teeth, bunionectomy-right), History of abnormal pap (Hx of abnormal, last pap 2022 nl) and Other (Needle phobia, obesity) and Negative: Diabetes, Hypertension, Heart disease, Auto- immune disorder, Kidney disease/UTI, Neurologic/epilepsy, Psychiatric, Hepatitis/liver disease, Trauma/domestic violence, History of blood transfusions (Hx of anemia but no transfusions), D (Rh) Sensitized, Pulmonary (e.g.,TB,Asthma), Seasonal allergies, Breast, Anesthetic complications, Uterine anomaly/bridger, Infertility, Anti-retroviral treatment and Relevant family history (Nothing new to add. See PFSH) ACOG First Trimester First Trimester: Desire for , Alcohol, Tobacco Cessation, Illicit/Recreational Drug/Substance Use, Intimate Partner Violence, Barriers to care, Unstable Housing, Communication Barriers, Environmental/Work Hazards, Anticipated Course of Care, Nurtrition and weight gain, Toxoplasmosis Precations, Use of Any medications, Sexual activity, Exercise, Dental Care, Sauna/Hot tub use, Seat Belt use, Childbirth classes/Hospital facilities, , Travel, Indications for Ultrasound and Screening for Aneuploidy Second Trimester Second Trimester: Signs and Symptoms of Labor, Selecting a care provider, Reproductive Life Planning & Contreception, Care Planning, Depression/Anxiety and Intimate Partner Violence; Discussed Tobacco Cessation Third Trimester Third Trimester: Pain Management Plans, Labor support person(s), Immediate Larc, Signs and Symptoms of Preeclampsia, Infant Feeding Yes , Education and Family Medical Leave or Disability Forms ROS Const Reports system reviewed and no additional complaints, except as documented, Denies fatigue, Denies headache(s) and Denies lethargy ENT Denies headache(s) Card Reports system reviewed and no additional complaints, except as documented Resp Reports system reviewed and no additional complaints, except as documented GI Reports system reviewed and no additional complaints, except as documented, Denies abdominal pain, Denies constipation, Denies cramping, Denies diarrhea and Denies dyspepsia Reports system reviewed and no additional complaints, except as documented, Denies abnormal vaginalbleeding, Denies difficulty voiding, Denies dyspareunia and Denies dysuria Musc Reports system reviewed and no additional complaints, except as documented Skin/Breast Reports system reviewed and no additional complaints, except as documented Neuro Yes system reviewed and no additional complaints, except as documented and No headache(s) Psych Reports system reviewed and no additional complaints, except as documented, Denies anhedonia and Denies anxiety Endo Reports system reviewed and no additional complaints, except as documented and Denies fatigue Exam Const General: cooperative, healthy appearing and comfortable Neck Neck: normal visual inspection and full ROM Chest Chest palpation & inspection: normal inspection of the chest Breast inspection: normal inspection of the breasts and normal inspection of the axillae Breast palpation: normal palpation of the breasts and normal palpation of the axillae Resp Effort & Inspection: normal respiratory effort and able to speak in complete sentences GI Inspection: normal to inspection Palpation: soft External Female Exam: normal external appearance and normal appearance of the urethra Urethra: normal appearance of the urethra Skin General: no rashes or lesions noted Neuro General: patient alert, patient awake and patient oriented x3 Extrem General: normal to inspection and full ROM Psych Appearance: grossly normal and well kempt Mental Status: mental status grossly normal Mood: congruent mood Affect: normal affect Speech and Movement: speech and movement normal Thought Process: normal Thought Content: normal Coding Level of Care Code OB Routine Diagnoses Supervision of high-risk O09.90 8 weeks gestation of Z3A.08 Weeks of gestation: 8 weeks Advanced maternal age (AMA) in History of miscarriage, currently O09.299 Obesity affecting O99.210 History of anemia Z86.2 Hx of varicose veins of lower extremity Z86.79 Needle phobia F40.298 Amenorrhea N91.2 Nodular goiter E04.9 HPV test positive Thyroid nodule E04.1 History of colposcopy Z98.890 Assessment and Plan Assessment and Plan (1) Supervision of high-risk : Status: Acute Comment: , ROSE 07/04/25, [place]co [place], Aman (2) : Status: Acute Qualifiers: Weeks of gestation: 8 weeks Qualified Code(s): Z3A.08 - 8 weeks gestation of Comment: declined NIPT & Carrier testing (3) Advanced maternal age (AMA) in : Status: Acute Comment: deliver at 39-40 weeks (4) History of miscarriage, currently : Status: Acute (5) Obesity affecting : Status: Acute Comment: HgbA1c (6) History of anemia: Status: Acute (7) Hx of varicose veins of lower extremity: Status: Acute Comment: below left knee (8) Needle phobia: Status: Acute (9) Amenorrhea: Status: Acute Comment: HCGx2 (10) Nodular goiter: Status: Chronic (11) HPV test positive: Status: Acute Comment: 04/2020 [facility], record scanned (12) Thyroid nodule: Status: Acute Comment: Recent dx: normal labs. did not get US of thyroid done. (13) History of colposcopy: Status: Acute Comment: [facility] pap 04/2020 pos HPV, neg pap. Neg colp wo bx per RR at [facility] 05/2020 Orders: Orders CBC W/Diff, Automated 11/12/24 O09.90 - Supervision of high risk , unspecified, unspecified trimester Type & Screen 11/12/24 O09.90 - Supervision of high risk , unspecified, unspecified trimester Rubella IgG 11/12/24 O09.90 - Supervision of high risk , unspecified, unspecified trimester Hepatitis C Antibody 11/12/24 O09.90 - Supervision of high risk , unspecified, unspecifiedtrimester Hepatitis B Surface Antigen 11/12/24 O09.90 - Supervision of high risk , unspecified, unspecified trimester Culture, Urine 11/12/24 O09.90 - Supervision of high risk , unspecified, unspecified trimester Syphilis Antibodies 11/12/24 O09.90 - Supervision of high risk , unspecified, unspecified trimester Chlamydia/GC GEETA aptima 11/12/24 O09.90 - Supervision of high risk , unspecified, unspecified trimester HIV 11/12/24 O09.90 - Supervision of high risk , unspecified, unspecified trimester Hemoglobin A1c 11/12/24 O09.90 - Supervision of high risk , unspecified, unspecified trimester, O99.210 - Obesity complicating , unspecified trimester Comprehensive Metabolic Profil 11/12/24 O09.90 - Supervision of high risk , unspecified, unspecified trimester Protein+Creatinine Ratio,Urine 11/12/24 O09.90 - Supervision of high risk , unspecified, unspecified trimester Thyroid Stim Hormone (TSH) Today E04.1 - Nontoxic single thyroid nodule Comments Comments: Patient oriented to practice and discussed care expectations and screenings. ACOG book offered to patient. Discussed routine and specially indicated labs if needed- patient consents to testing. See problem list details for plan information. Optional screening including maternal carrier screenings, neural tube defect screening, genetic screening options including quad screen, nuchal translucency, sequential screening, and NIPT screening offered to patient and patient chose: NIPT 11/24/24 1335 s CNM> Date _ Lyssa Aguila CNM Cosigner Signature: Date (if applicable) CC: ~ [facility]02-17-2025 Evaluation note* Diagnosis Onset Date Resolution Status Admit Date Spotting in early resolved August 23, 2024 3:04pm Advanced maternal age (AMA) in acute November 24, 2024 1 2:49pm Amenorrhea acute November 24, 2024 12:49pm History of anemia acute November 12:49pm History of colposcopy acute November 24, 2024 12:49pm History of miscarriage, currently acute November 24 12:49pm HPV test positive acute November 12:49pm Hx of varicose veins of lowe r extremity acute November 24, 2024 1 2:49pm Needle phobia acute November 24, 2 025 12:49pm Obesity affecting acute November 24, 2024 12:49pm acute November 24, 2024 12:49pm Supervision of high-risk acute November 24, 2024 1 2:49pm Thyroid nodule acute November 24, 2024 12:49pm Nodular goiter chronic November 24, 2024 12:49pm [facility] Work Phone: [phone]) 483-477704-26-2021 NoteHNO ID: [id number] Author: Carl Chino Service: ? Author Type: Physician Type: Progress Notes Filed: 10/30/2020 7:08 PM Note Text: Patient presents with: Chest Pain: feels a pressure in her heart Numbness: in her left HPI: Patient presents today for office visit for acute visit. Had lightheadedness several months ago. None now. Complains of chest pressure over the last year. She gets numbness of left arm when it happens. Did not get it looked at when it started. She thinks it is job related. She switched positions and seems to be improving. No change with exertion. Happens a few times a week. Last time was last night. Lasts for a few hours. No shortness of breath with it. No cough. Some worsening with deep breath. Sometimes does not. No nausea. No vomiting. Does not get palpitations. Had those in 2018 and had an echo and a holter back then. No heartburn. Stopped ocd's last month. LMP was just a few days ago. Was normal. No edema. No no calf tenderness. Has some neck pain. Can get discomfort when the arm numb. Can change with positions. No hx of dvt or pe. She feels it is stress related and does not want meds. They are going to start trying to have children. She did not follow up on her thyroid nodule from 2018. She was told to see surgery and did not. Reinforced importance of follow up. No changes in neck with swelling or pain. CONCLUSIONS: - Technically difficult exam due to body habitus. - Exam indication: Palpitations - The left ventricle is normal in size. There is no left ventricular hypertrophy. Left ventricular systolic function is normal. EF = 64 ? 5% (2D biplane) Normal left ventricular diastolic function. - The right ventricle is normal in size. Right ventricular systolic function is normal. - There are no significant valvular abnormalities. - The patient has not had a prior CC echocardiographic exam for comparison. MEDICATIONS: Current Outpatient Medications Medication Sig - 25/iron fum/folic/dha (-1 ORAL) Take by mouth. No current facility-administered medications for this visit. ALLERGIES: ALLERGIES Allergen Reactions - Bupropion Intolerance headache - Penicillins PAST MEDICAL HISTORY Diagnosis Date - NEGATIVE MEDICAL HISTORY PAST SURGICAL HISTORY Procedure Laterality Date - NONE FAMILY HISTORY Problem Relation Age of Onset - No Known Problems Mother - Diabetes Father - No Known Problems Sister - Cancer Maternal Grandmother skin cancer - No Known Problems Maternal Grandfather - No Known Problems Paternal Grandmother - No Known Problems Paternal Grandfather Social History Tobacco Use - Smoking status: Never Smoker - Smokeless tobacco: Never Used Vaping Use - Vaping Use: Never used Substance Use Topics - Alcohol use: Never - Drug use: No Reviewed current medications, allergies, past medical history, surgical history, family history and social history today. REVIEW OF SYSTEMS All other reviewed and negative other than HPI. HEALTH MAINTENANCE: Reviewed health maintenance issues today VITALS: BP 102/72 Pulse 80 Wt 58.5 kg (129 lb) LMP 06/30/2020 (Within Days) BMI 23.03 kg/m? Last 4 Encounter Wt Readings: Date: Wt: 10/30/2020 58.5 kg (129 lb) 07/12/2020 59.4 kg (131 lb) 04/10/2020 60.3 kg (133 lb) 04/22/2018 63.5 kg (140 lb) PHYSICAL EXAMINATION: General appearance: Well appearing, alert, in no acute distress, well-hydrated, well nourished. Skin: Skin color, texture, turgor normal, no suspicious rashes or lesions Head: Normocephalic, no masses, lesions, tenderness or abnormalities Eyes: Anicteric sclera. Pupils are equally round and reactive to light. Extraocular movements are intact. Neck: supple. Some thyromegaly. Right side larger than left. Lungs: Lungs clear to auscultation. No wheezing, rhonchi, rales Heart: RRR without murmur, gallop, or rubs. No ectopy Abdomen: Normal abdominal exam, Abdomen soft, non-tender. Bowel sounds normal. No masses, organomegaly Extremities: No deformities, edema, skin discoloration, clubbing or cyanosis. Good capillary refill. Musculoskeletal: No joint swelling, deformity, or tenderness Some anxiety ASSESSMENT/PLAN: 1. Chest pain, unspecified type - ICD9: 786.50, ICD10: R07.9 (primary diagnosis) - may well be anxiety related. I do not have a lab this evening. Since is currently not having symptoms, can do labs in am. Reinforced need to at least do minimal work up. Does not sound cardiac on description. May well Be anxiety driven. - ECG COMPLETE - CBC + DIFF - COMP METABOLIC PANEL - TSH BLD - D-DIMER - XR CHEST 2V FRONTAL/LAT 2. Thyroid nodule - ICD9: 241.0, ICD10: E04.1 - reinforced that if her nodules are enlarging, she cannot ignore them. - US THYROID/PARATHYROID 3. Numbness and tingling in left arm - ICD9: 782.0, ICD10: R20.0, R20.2 - suspect is musculoskeletal. Get (more content not included)...[facility]03-08-2021 NoteHNO ID: [id number] Author: Jacey Galdamez Service: ? Author Type: Nurse Practitioner Type: Progress Notes Filed: 09/11/2020 9:25 AM Note Text: Subjective Patient triaged in express care. Patient presenting with intermittent dizziness, left chest pain, left arm numbness for months. Denies cardiac history. Discussed limitations of express care, I will refer to family medicine. Patient appears in on distress today. I advised if s/s become severe needs to go to ER.[facility] Future Appointments [facility] Evaluation noteNo assessment information available [facility] Work Phone: Evaluation note* Diagnosis Onset Date Resolution Status Nodular goiter acute Encounter for routine gynecological examination noneactive [facility] Work Phone: Hospital course Narrative No data available for this section [facility] Hospital Discharge instructions No data available for this section [facility] Progress note No data available for this section [facility] Progrqdx note Author Lyssa Aguila [facility] Note Date/Time November 24, 2024 1:35p m [facility] [address], [address] [place] [address] OFFICE VISIT Date of Service: 11/24/24 MR#: [id number] Acct: [id number] Name: DEMARCUS ABAD Rep #: [id number] : 1990 Provider: SULLY Aguila Age/Sex: 34/F Location: [facility] Status: Signed Intake Vital Signs 08/23/24 15:14 11/24/24 12:59 Height 5 ft 2 in 5 ft 2 in Weight: 166 lb 168 lb 8 oz BMI 30.3 30.8 BP 119/77 108/74 Intake Visit Reasons: NOB LMP 09/27 Chief Complaint: New OB Waterproofer Required: No Is patient in pain?: No Allergies Penicillins Allergy (Unknown, Verified 11/24/24 12:57) Unknown Medications ?Medication ?Instructions ?Recorded ?Confirmed ?Type ferrous sulfate 325 mg (65 mg 325 mg PO DAILY 09/05/23 11/24/24 History iron) tablet (Feosol) multivit-min no.71-iron fum 28 cap PO 11/12/24 5 History mg-folate no.1 1 mg-dha 300 mg capsule (PNV-[place]) Last Menstrual Period: 09/27/24 : Yes PFSH PFSH Medical History Hx of varicose veins of lower extremity Depression Nodular goiter HPV (human papilloma virus) infection Thyroid disorder Pre-eclampsia Abnormal glucose Anemia Surgical History History of bunionectomy of right great toe [place] teeth extracted History of colposcopy Family History Mother Hypertension Father Diabetes Aunt Thyroid disorder Maternal- unknown type Social History adopted: No household members: spouse and children housing: house number of children: 2 service: No current occupational status: unemployed current occupation: [employer] pets and animals: Yes (no litter box) pets and animals: cat(s) history of recent travel: No sexually active: Yes Smoking Status: Never smoker alcohol intake: never substance use type: does not use well-balanced diet: daily or most days caffeine: No eating out: 1-3 times/week during the past year weight has: increased > 10 lbs what type of physical activity do you participate in: none [place]/evangelical: Evangelical seatbelt use: always do you feel safe at home: Yes additional social history: [employer] History 4 Elective abortions Hx Para 2 Spontaneous abortions 1 Hx # Term Pregnancies Ectopic pregnancies Hx # Pregnancies 2 Multiple births # of living children 2 Past Pregnancies Del. Date Name GA/Weeks Outcome Route Bth Weight Infant Gen Labor Lgth Anesthesia Del Locatn Provider FOB Unknown 08/2024 6 spontaneous 04/30/08 Shlomo 36 live - 6# Male epidural WC Taye 08/08/21 Emalie 36 live - 6lbs 14oz Female ep idural [facility] Edda [place] Delivery Date: 04/30/08 Last Updated by: Cassidy Aguirre AIRLINE MECHANIC, AIRLINE MECHANIC-C Induced to preeclampsia, teen Delivery Date: 08/08/21 Last Updated by: Ashley Cortes IOL pre-e HPI NOB LMP 09/27 Details: DEMARCUS ABAD is a 34 year old who presents for New OB visit. OB Visit ROSE Calculator Estimated Delivery Date Method Current WG Current Estimate 07/04/25 LMP (Certain) 8w 2d Other Estimates 07/07/25 Ultrasound #1 7w 6d Comments: HIV: Urine Culture: Sequential Screen: NIPT Screen: Estimated Due Date: 09/27/24 Expected Delivery Route/Plan Labor Preferences- CB/BF classes: [] labor support person: [] labor intervention preferences: [] pain management options preferred: [] cut cord/dad catch: [] : [] PP control planned: [] discussed possible routes of delivery and associated risks: [] special requests: [] Specific Issue/Plans Covid status: [] Flu vaccine: [] Tdap vaccine: [] Rhogam: [] LARC form signed: [] Problem list reviewed and updated with the most current plan of care details and appropriate orders placed. Relevant counseling for the gestational age provided. Continue routine care and follow up unless otherwise noted in visit notes/problem list details Initial Weight: 168 lb Date -?-?-?-?-?-?-?-?-?-?-?-?- EGA Weight BP Urine Prot -?-?-?-?-?-?-?-?-?-?-?-?- Glucose FHR FuHt Pres Dilation -?-?-?-?-?-?-?-?-?-?-?-?- Effaced St Visit Note 11/24/24 -?-?-?-?-?-?-?-?-?-?-?-?- 8w 2d 168 lb 8 oz (+8 oz) 108/74 -?-?-?-?-?-?-?-?-?-?-?-?- 162 -?-?-?-?-?-?-?-?-?-?-?-?- KW- CRL cons wit h dates. accepts NIPT. Menstrual History Last Menstrual Period: 09/27/24 Reported LMP: definite Normal amount/duration: Yes Frequency in days: 28 On hormonal BC at conception: No hCG+: 10/29/24 Antepartum Record Genetic Screening: Congenital Heart Defect: Other, Neural Tube Defect: Other, Hemoglobinopathy Or Carrier: Other, Cystic Fibrosis: Other, Chromosome Abnormality: Other, Andrzej-Sachs: Other, Hemophilia: Other, Intellectual Disability/Autism: Partner (Grandfather Autism), Recurrent Loss/Stillbirth: Other, Other Structural Defect: Other, Other Genetic Disease: Other and Maternal Metabolic Disorder: Other Infection History: Live with someone with TB or Exposed to TB: No, Patient or Partner has history of Genital Herpes: No, Rash or Viral illness since last mentrual period: No, Prior GBS-Infected child: No, History of STD: No, HIV Infection: No, History of Hepatitis: No, Recent travel outside of [place]: No, Concern for hepatitis exposure: No, Varicella immune: Yes (immune- virus) and Covid Vaccinated: No Medical History Medical History: Positive: Depression/ depression (not on medication), Varicosities/phlebitis (varicose, left below the knee), Thyroid dysfunction (Thyroid nodule), Drug/latex allergies/reactions (PCN), Platform Power Technician 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 (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), Operations/hospitalizations (wisdom teeth, bunionectomy-right), History of abnormal pap (Hx of abnormal, last pap 2022 nl) and Other (Needle phobia, obesity) and Negative: Diabetes, Hypertension, Heart disease, Auto-immune disorder, Kidney disease/UTI, Neurologic/epilepsy, Psychiatric, Hepatitis/liver disease, Trauma/domestic violence, History of blood transfusions (Hx of anemia but no transfusions), D (Rh) Sensitized, Pulmonary (e.g.,TB,Asthma), Seasonal allergies, Breast, Anesthetic complications, Uterine anomaly/bridger, Infertility, Anti- retroviral treatment and Relevant family history (Nothing new to add. See PFSH) ACOG First Trimester First Trimester: Desire for , Alcohol, Tobacco Cessation, Illicit/Recreational Drug/Substance Use, Intimate Partner Violence, Barriers to care, Unstable Housing, Communication Barriers, Environmental/Work Hazards, Anticipated Course of Care, Nurtrition and weight gain, Toxoplasmosis Precations, Use of Any medications, Sexual activity, Exercise, Dental Care, Sauna/Hot tub use, Seat Belt use, Childbirth classes/Hospital facilities, , Travel, Indications for Ultrasound and Screening for Aneuploidy Second Trimester Second Trimester: Signs and Symptoms of Labor, Selecting a care provider, Reproductive Life Planning & Contreception, Care Planning, Depression/Anxiety and Intimate Partner Violence; Discussed Tobacco Cessation Third Trimester Third Trimester: Pain Management Plans, Labor support person(s), Immediate Larc, Signs and Symptoms of Preeclampsia, Infant Feeding Yes , Education and Family Medical Leave or Disability Forms ROS Const Reports system reviewed and no additional complaints, except as documented, Denies fatigue, Denies headache(s) and Denies lethargy ENT Denies headache(s) Card Reports system reviewed and no additional complaints, except as documented Resp Reports system reviewed and no additional complaints, except as documented GI Reports system reviewed and no additional complaints, except as documented, Denies abdominal pain, Denies constipation, Denies cramping, Denies diarrhea and Denies dyspepsia Reports system reviewed and no additional complaints, except as documented, Denies abnormal vaginal bleeding, Denies difficulty voiding, Denies dyspareunia and Denies dysuria Musc Reports system reviewed and no additional complaints, except as documented Skin/Breast Reports system reviewed and no additional complaints, except as documented Neuro Yes system reviewed and no additional complaints, except as documented and No headache(s) Psych Reports system reviewed and no additional complaints, except as documented, Denies anhedonia and Denies anxiety Endo Reports system reviewed and no additional complaints, except as documented and Denies fatigue Exam Const General: cooperative, healthy appearing and comfortable Neck Neck: normal visual inspection and full ROM Chest Chest palpation & inspection: normal inspection of the chest Breast inspection: normal inspection of the breasts and normal inspection of the axillae Breast palpation: normal palpation of the breasts and normal palpation of the axillae Resp Effort & Inspection: normal respiratory effort and able to speak in complete sentences GI Inspection: normal to inspection Palpation: soft External Female Exam: normal external appearance and normal appearance of the urethra Urethra: normal appearance of the urethra Skin General: no rashes or lesions noted Neuro General: patient alert, patient awake and patient oriented x3 Extrem General: normal to inspection and full ROM Psych Appearance: grossly normal and well kempt Mental Status: mental status grossly normal Mood: congruent mood Affect: normal affect Speech and Movement: speech and movement normal Thought Process: normal Thought Content: normal Coding Level of Care Code OB Routine Diagnoses Supervision of high-risk O09.90 8 weeks gestation of Z3A.08 Weeks of gestation: 8 weeks Advanced maternal age (AMA) in History of miscarriage, currently O09.299 Obesity affecting O99.210 History of anemia Z86.2 Hx of varicose veins of lower extremity Z86.79 Needle phobia F40.298 Amenorrhea N91.2 Nodular goiter E04.9 HPV test positive Thyroid nodule E04.1 History of colposcopy Z98.890 Assessment and Plan Assessment and Plan (1) Supervision of high-risk : Status: Acute Comment: , [facility] 07/04/25, [place], Aamn (2) : Status: Acute Qualifiers: Weeks of gestation: 8 weeks Qualified Code(s): Z3A.08 - 8 weeks gestation of Comment: declined NIPT & Carrier testing (3) Advanced maternal age (AMA) in : Status: Acute Comment: deliver at 39-40 weeks (4) History of miscarriage, currently : Status: Acute (5) Obesity affecting : Status: Acute Comment: HgbA1c (6) History of anemia: Status: Acute (7) Hx of varicose veins of lower extremity: Status: Acute Comment: below left knee (8) Needle phobia: Status: Acute (9) Amenorrhea: Status: Acute Comment: HCGx2 (10) Nodular goiter: Status: Chronic (11) HPV test positive: Status: Acute Comment: 04/2020 [facility], record scanned (12) Thyroid nodule: Status: Acute Comment: Recent dx: normal labs. did not get US of thyroid done. (13) History of colposcopy: Status: Acute Comment: [facility] pap 04/2020 pos HPV, neg pap. Neg colp wo bx per RR at [facility] 05/2020 Orders: Orders CBC W/Diff, Automated 11/12/24 O09.90 - Supervision of high risk , unspecified, unspecified trimester Type & Screen 11/12/24 O09.90 - Supervision of high risk , unspecified, unspecified trimester Rubella IgG 11/12/24 O09.90 - Supervision of high risk , unspecified, unspecified trimester Hepatitis C Antibody 11/12/24 O09.90 - Supervision of high risk , unspecified, unspecified trimester Hepatitis B Surface Antigen 11/12/24 O - Supervision of high risk , unspecified, unspecified trimester Culture, Urine 11/12/24 - Supervision of high risk , unspecified, unspecified trimester Syphilis Antibodies 11/12/24 O - Supervision of high risk , unspecified, unspecified trimester Chlamydia/GC GEETA aptima 11/12/24 - Supervision of high risk , unspecified, unspecified trimester HIV 11/12/24 O - Supervision of high risk , unspecified, unspecified trimester Hemoglobin A1c 11/12/24 O - Supervision of high risk , unspecified, unspecified trimester, O99.210 - Obesity complicating , unspecified trimester Comprehensive Metabolic Profil 11/12/24 - Supervision of high risk , unspecified, unspecified trimester Protein+Creatinine Ratio,Urine 11/12/24 - Supervision of high risk , unspecified, unspecified trimester Thyroid Stim Hormone (TSH) Today E04.1 - Nontoxic single thyroid nodule Comments Comments: Patient oriented to practice and discussed care expectations and screenings. ACOG book offered to patient. Discussed routine and specially indicated labs if needed- patient consents to testing. See problem list details for plan information. Optional screening including maternal carrier screenings, neural tube defect screening, genetic screening options including quad screen, nuchal translucency, sequential screening, and NIPT screening offered to patient and patient chose: NIPT 11/24/24 6859 <Electronically signed by Lyssa preston CNM> Date _ Lyssa Aguila CNM Cosigner Signature: Date (if applicable) CC: ~ [facility] Work Phone: Reason for referral (narrative)No reason for referral information available[facility] Work Phone: Summary Purpose Family History Relationship Condition Age at Onset Recorded Date/T leora mother Hypertension Unknown father Diabetes mellitus Unknown Relationship Condition Age at Onset Recorded Date/T leora mother Hypertension Unknown father Diabetes mellitus Unknown aunt Disorder of thyroid Unknown Advance Directives Advance Directive Response Recorded Date/ Time Living Will No August 16, 2 022 3:11pm Power of Smelter Charger No August 16, 2021 3:11pm Chief Complaint and Reason for Visit Chief Complaint THYROID NODULE Chief Complaint Thyroid Annual (LABEL REWINDER) Reason for Visit Nodular goiter Encounter for routine gynecological examination Chief Complaint Admit Date 5w6d light brown spotting in early pregn roland August 23, 2024 3:04pm NOB LMP 09/27November 24, 2024 12:49 pm Reason for Visit Admit Date Spotting in early August 3:04pm Advanced maternal age (AMA) in November 24, 2024 12:49pm Amenorrhea November 24, 2024 12:49 pm History of anemia November 24, 2024 12:49 pm History of colposcopy November 24, 2024 12: 49pm History of miscarriage, currently pregna nt November 24, 2024 12:49pm HPV test positive November 24, 2024 12:49 pm Hx of varicose veins of lower extremity November 24, 2024 12:49pm Needle phobia November 24, 2024 12:49 pm Obesity affecting November 24 12:49pm November 24, 2024 12:49 pm Supervision of high-risk November 052024 12:49pm Thyroid nodule November 24, 2024 12:49 pm Nodular goiter November 24, 2024 12:49 pm Chief Complaint Admit Date NOB LMP 09/27November 24, 2024 12:49 pm 12 wks OB December 27, 2024 9:40 am Reason for Visit Admit Date Advanced maternal age (AMA) in November 24, 2024 12:49pm Amenorrhea November 24, 2024 12:49 pm History of anemia November 24, 2024 12:49 pm History of colposcopy November 24, 2024 12: 49pm History of miscarriage, currently pregna nt November 24, 2024 12:49pm HPV test positive November 24, 2024 12:49 pm Hx of varicose veins of lower extremity November 24, 2024 12:49pm Needle phobia November 24, 2024 12:49 pm Obesity affecting November 24 12:49pm November 24, 2024 12:49 pm Supervision of high-risk November 052024 12:49pm Thyroid nodule November 24, 2024 12:49 pm Nodular goiter November 24, 2024 12:49 pm Advanced maternal age (AMA) in December 27, 2024 9:40am Amenorrhea December 27, 2024 9:40 am History of anemia December 27, 2024 9:40 am History of colposcopy December 27, 2024 9: 40am History of miscarriage, currently pregna nt December 27, 2024 9:40am HPV test positive December 27, 2024 9:40 am Hx of varicose veins of lower extremity December 27, 2024 9:40am Needle phobia December 27, 2024 9:40 am Obesity affecting December 27 9:40am December 27, 2024 9:40 am Supervision of high-risk December 27, 2024 9:40am Thyroid nodule December 27, 2024 9:40 am Nodular goiter December 27, 2024 9:40 am Additional Source Comments INFORMATION SOURCE (unrecogn ized section and content) DATE CREATED AUTHOR 08/26/2021 [facility] DATE CREATED AUTHOR AUTHOR'S ORGANIZ ATION 09/23/2022 [facility] ([place]) DATE CREATED AUTHOR AUTHOR'S ORGANIZ ATION 12/25/2024 [facility] Goals (unrecognized section and content) Goals may be documented in a n alternate sectionGoals may be documented in an alternate section No data available for this sectionGoals may be documented in an alternate sectionGoals may be documented in an alternate sectionGoals may be documented in an alternate sectionGoals may be documented in an alternate sectionGoals may be documented in an alternate section Care Team (unrecognized sect ion and content) Care Team Personnel Name: BEATRIZ ESCOBAR MD Member Role: Primary Care Physician Address: Address: [address] [place] [address]- Care Team Related Persons Name: AMAN ABAD Address: Home [address] [place] [address] Care Teams (unrecognized sec tion and content) Team Status: Active Member Role Status Dates Dr. Carl Chino MD Family Provider Active Dr. Antony Escobar MD Primary Care Provider Activ e Team Status: Inactive Member Role Status Dates Dr. Antony Escobar MD Primary Care Provider, Refe rring Provider Active Dr. Carmelita Weeks DO Attending Provider Activ e Team Status: Inactive Member Role Status Dates Dr. Antony Escobar MD Primary Care Provider, Refe rring Provider Active Dr. Denis Galdamez MD Attending Provider Active Team Status: Inactive Member Role Status Dates Dr. Antony Escobar MD Primary Care Provider Activ e Dr. Carmelita Weeks DO Attending Provider, Refe rring Provider Active Team Status: Inactive Member Role Status Dates Dr. Antony Escobar MD Primary Care Provider Activ e Dr. Denis Galdamez MD Attending Provider, Referring Provi dinesh Active Team Status: Active Member Role Status Dates Dr. Beatriz Escobar MD Primary Care Provider Acti ve Team Status: Inactive Member Role Status Dates Dr. Beatriz Escobar MD Primary Care Provider Acti ve Start: August 23, 2024 End: August 23, 2024 Lyssa Aguila CNM Attending Provider Active S tart: August 23, 2024 End: August 23, 2024 Lyssa Aguila CNM Referring Provider Active S tart: August 23, 2024 End: August 23, 2024 Team Status: Inactive Member Role Status Dates Dr. Beatriz Escobar MD Primary Care Provider Acti ve Start: August 23, 2024 End: August 23, 2024 Dr. Beatriz Escobar MD Referring Provider Active Start: August 23, 2024 End: August 23, 2024 Lyssa Aguila CNM Attending Provider Active S tart: August 23, 2024 End: August 23, 2024 Team Status: Inactive Member Role Status Dates Dr. Beatriz Escobar MD Primary Care Provider Acti ve Start: August 25, 2024 End: August 25, 2024 Lyssa Aguila CNM Attending Provider Active S tart: August 25, 2024 End: August 25, 2024 Lyssa Aguila CNM Referring Provider Active S tart: August 25, 2024 End: August 25, 2024 Team Status: Inactive Member Role Status Dates Dr. Beatriz Escobar MD Primary Care Provider Acti ve Start: November 24, 2024 End: November 24, 2024 Dr. Beatriz Escobar MD Referring Provider Active Start: November 24, 2024 End: November 24, 2024 Lyssa Aguila CNM Attending Provider Active S tart: November 24, 2024 End: November 24, 2024 Team Status: Inactive Member Role Status Dates Dr. Beatriz Escobar MD Primary Care Provider Acti ve Start: November 24, 2024 End: November 24, 2024 Lyssa Aguila CNM Attending Provider Active S tart: November 24, 2024 End: November 24, 2024 Lyssa Aguila CNM Referring Provider Active S tart: November 24, 2024 End: November 24, 2024 Team Status: Inactive Member Role Status Dates Dr. Beatriz Escobar MD Primary Care Provider Acti ve Start: December 27, 2024 End: December 27, 2024 Dr. Beatriz Escobar MD Referring Provider Active Start: December 27, 2024 End: December 27, 2024 Cassidy Aguirre NP, AIRLINE MECHANIC-C Attending Provider Active Start: December 27, 2024 End: December 27, 2024 Team Status: Active Member Role Status Dates Dr. Beatriz Escobar MD Primary Care Provider Acti ve Start: December 27, 2024 Cassidy Aguirre AIRLINE MECHANIC, AIRLINE MECHANIC-C Attending Provider Active Start: December 27, 2024 Cassidy Aguirre AIRLINE MECHANIC, AIRLINE MECHANIC-C Referring Provider Active Start: December 27, 2024 FOR RECORDS PERTAINING TO PATIENTS WHO ARE OR HAVE BEEN ENROLLED IN A CHEMICAL DEPENDENCY/SUBSTANCEABUSE PROGRAM, SOME INFORMATION MAY BE OMITTED. This clinical summary was aggregated from multiple sources. Caution should be exercised in using it in the provision of clinical care. This summary normalizes information from multiple sources, and as a consequence, information in this document may materially change the coding, format and clinical context of patient data. In addition, data may be omitted in some cases. CLINICAL DECISIONS SHOULD BE BASED ON THE PRIMARY CLINICAL RECORDS. [employer] [facility]. provides no warranty or guarantee of the accuracy or completeness of information in this document.
== END | disposition home or self-care (01) ==
PROVIDERS: Advanced Practice Midwife; PCP Family Medicine; Referring Provider Nurse Practitioner Women's Health; Visit Provider Nurse Practitioner Women's Health
DX: O09.90 Supervision of high risk pregnancy, unspecified, unspecified trimester (principal); R30.0 Dysuria; Z3A.00 Weeks of gestation of pregnancy not specified
CPT/HCPCS: 36415; 80053; 83036; 84443; 85025; 86703; 86762; 86780; 86803; 86850; 86900; 86901; 87086; 87340

== ENCOUNTER → 2025-01-17 | Outpatient (CLI) | payer BC, SELFPAY ==
[2025-01-17 15:38] LABS: Free T3 3.3 pg/mL (2.18-3.98)
== END | disposition home or self-care (01) ==
LOC: PAVLAB 14:25
PROVIDERS: PCP Family Medicine; Referring Provider Internal Medicine Endocrinology, Diabetes & Metabolism; Visit Provider Internal Medicine Endocrinology, Diabetes & Metabolism
DX: E04.1 Nontoxic single thyroid nodule (principal)
CPT/HCPCS: 36415; 84439; 84443; 84481

== ENCOUNTER → 2025-02-21 | Outpatient (CLI) | payer BC, SELFPAY ==
[2025-02-21 12:57] LABS: Hematocrit 39.3 % (37-47); Hemoglobin 13.4 g/dL (12.0-15.0); Immature Granulocytes Count 0.050 X10^3/uL (0.0-0.0); Mean Corp Hgb Conc 34.1 g/dL (32-36); Mean Corpuscular Volume 88.3 fL (81-99); Mean Platelet Vol. 10.1 fl (6.2-12.0); NRBC Flagged by Analyzer 0 % (0-5); Platelet Count 238 K/mm3 (150-450); RBC Distribution Width CV 13.0 % (11.6-14.6); RBC Distribution Width SD 41.8 fl (35.1-43.9); Red Blood Count 4.45 M/mm3 (4.2-5.4); White Blood Count 10.1 K/mm3 (4.4-11.0)
[2025-02-21 13:14] LABS: Free T3 2.8 pg/mL (2.18-3.98)
== END | disposition home or self-care (01) ==
LOC: BWCLAB 11:38
PROVIDERS: Internal Medicine Endocrinology, Diabetes & Metabolism; PCP Family Medicine; Referring Provider Advanced Practice Midwife; Visit Provider Advanced Practice Midwife
DX: O99.283 Endocrine, nutritional and metabolic diseases complicating pregnancy, third trimester (principal); E04.1 Nontoxic single thyroid nodule; Z3A.00 Weeks of gestation of pregnancy not specified
CPT/HCPCS: 36415; 84439; 84443; 84481; 85025

== ENCOUNTER 2025-04-02 18:20 | Outpatient (CLI) | payer BC, SELFPAY ==
--- OUTSIDE RECORDS SUMMARY | 2025-03-01 13:47 | XMS RPT_ITS ---
Author Name Auto Generated Organization [facility] Care Team Providers Care Deputy Insurance Commissioner Name Role Phone MANDA MCDANIEL Referring Unavailable YASMEEN GARCIA Attending Unavailable BEATRIZ PARDO Primary Care UnavailBEATRIZ Angulo Primary Care UnavailSONJA Morgan Attending Unavailable MANDA MCDANIEL Referring Unavailable PROBLEMS No Problem Records Found PROCEDURES No Procedure Records Found RESULTS No Result Records Found ALLERGIES No Allergies Records Found ENCOUNTERS ADMIT/DISCHARGE ACCOUNT NUMBER ADMITTING ENCOUNTER CLASS LOCATION SOURCE 03/01/2025/03/01/2025 [id number] Ambulatory [place]:[facility] 02/08/2025/02/08/2025 [id number] Ambulatory [place]:[facility] PAYERS ENCOUNTER GUARANTOR PAYER SUBSCRIBER SOURCE 03/01/2025 DEMARCUS BENITESERICHOB: [place], [place] [address]Ton: ~[phone]) Primary Insurance:ASHLIE granados Number: [id number] tive Date: AMAN MENGTIMMY: [id number] [place] [address] [facility] 02/08/2025 DEMARCUS BENITESERICHOB: [place], [place] [address]Xhl: ~[phone]) Primary Insurance:ASHLIE granados Number: [id number] tive Date: AMANGerard MENGOB: [id number] [place] [address] [facility]
[2025-04-02 18:35] VITALS: BMI 33.4
[2025-04-02 18:41] VITALS: BP 94/52; PULSE 75; RESP 16; TEMP 36.6; O2SAT 96
--- NOTE | 2025-04-03 15:35 | OB.TRI.HP_ITS ---
HPI - General HPI Narrative DEMARCUS ABAD, is a 35 F G4, P2 at 26 weeks 6 days gestation who presents to labor and delivery because she was at the grocery store and a shopping cart was jammed into her abdomen. It caused some discomfort so she came to labor and delivery. On presentation to labor delivery she was noted to have minimal pain. Maternal blood type is Rh+. Patient was placed on monitor and the monitor strip was reactive without showing any decelerations. After monitoring the patient for 33 minutes she was discharged to home with routine follow-up suggested. She was instructed to use Tylenol if she had severe pain or cramping and to return if this pain persisted or bleeding ensued. Maternal Data Information ROSE Calculator Estimated Delivery Date Method Current WG Current Estimate 07/04/25 LMP (Certain) 26w 6d Other Estimates 07/07/25 Ultrasound #1 26w 3d PFSH PFSH Medical History Hot thyroid nodule Hx of varicose veins of lower extremity Depression Nodular goiter HPV (human papilloma virus) infection Thyroid disorder Pre-eclampsia Abnormal glucose Anemia Home Medications ?Medication ?Instructions ?Recorded ?Last Taken ?Type multivit-min no.71-iron fum 28 1 cap PO DAILY 11/12/24 04/01/25 21:00 History mg-folate no.1 1 mg-dha 300 mg 1 cap capsule (PNV-Ryde) methimazole 5 mg tablet 2.5 mg (1/2 x 5 mg) PO .ever y 01/17/25 03/30/25 08:00 Rx other day #15 tabs 2.5 mg Allergy/AdvReac Type Severity Reaction Status Date / Time Penicillins Allergy Unknown Unknown Verified 04/02/25 18:30 Family History Mother Hypertension Father Diabetes Aunt Thyroid disorder Maternal- unknown type Surgical History History of bunionectomy of right great toe [place] teeth extracted History of colposcopy Social History adopted: No household members: spouse and children housing: house number of children: 2 current occupational status: unemployed current occupation: [employer] pets and animals: Yes (no litter box) pets and animals: cat(s) history of recent travel: No sexually active: Yes Smoking Status: Never smoker alcohol intake: never substance use type: does not use well-balanced diet: daily or most days caffeine: No eating out: 1-3 times/week during the past year weight has: increased > 10 lbs what type of physical activity do you participate in: none [place]/syn[employer]: [employer] seatbelt use: always do you feel safe at home: Yes additional social history: [employer]- [employer] History 4 Elective abortions Hx Para 2 Spontaneous abortions 1 Hx # Term Pregnancies Ectopic pregnancies Hx # Pregnancies 2 Multiple births # of living children 2 Past Pregnancies Del. Date Name GA/Weeks Outcome Route Bth Weight Infant Gen Labor Lgth Anesthesia Del Locatn Provider FOB Unknown 08/2024 6 spontaneous 04/30/08 Shlomo 36 live - 6# Male epidural [facility] Taye 08/08/21 Emalie 36 live - 6lbs 14oz Female ep idural [facility] [place] Delivery Date: 04/30/08 Last Updated by: Cassidy Aguirre SEAMSTRESS FITTER, SEAMSTRESS FITTER-C Induced to preeclampsia, teen Delivery Date: 08/08/21 Last Updated by: Ashley FLORES pre-e Visit Details Expected Delivery Route/Plan Labor Preferences- CB/BF classes: [] labor support person: [] labor intervention preferences: [] pain management options preferred: [] cut cord/dad catch: [] : [] PP control planned: [] discussed possible routes of delivery and associated risks: [] special requests: [] Plans Covid status: [] Flu vaccine: [] Tdap vaccine: [] Rhogam: [] LARC form signed: yes Problem list reviewed and updated with the most current plan of care details and appropriate orders placed. Relevant counseling for the gestational age provided. Continue routine care and follow up unless otherwise noted in visit notes/problem list details OB Flowsheet Initial Weight: 168 lb Date -?-?-?-?-?-?-?-?-?-?-?-?- EGA Weight BP Urine Prot -?-?-?-?-?-?-?-?-?-?-?-?- Glucose FHR FuHt Pres Dilation -?-?-?-?-?-?-?-?-?-?-?-?- Effaced St Visit Note 11/24/24 -?-?-?-?-?-?-?-?-?-?-?-?- 8w 2d 168 lb 8 oz (+8 oz) 108/74 -?-?-?-?-?-?-?-?-?-?-?-?- 162 -?-?-?-?-?-?-?-?-?-?-?-?- KW- CRL cons wit h dates. accepts NIPT. 12/27/24 -?-?-?-?-?-?-?-?-?-?-?-?- 13w 0d 166 lb (-2 lb) 115/73 Negative -?-?-?-?-?-?-?-?-?-?-?-?- Negative 160 -?-?-?-?-?-?-?-?-?-?-?-?- MH-NoVB. Br US c onfirm FHT. Nausea persists, no vomiting. Will try B6&unisom. Dysuria: + UA. Culture pending, Rx macrobid. PN labs, NIPT today. 01/10/25 -?-?-?-?-?-?-?-?-?-?-?-?- 15w 0d 165 lb 8 oz (-2 lb 8 oz) 114/68 -?-?-?-?-?-?-?-?-?-?-?-?- 163 -?-?-?-?-?-?-?-?-?-?-?-?- -work in for F HT check. Thought felt movement and then did not. FHT easily found with jared MCCLAIN 01/25/25 -?-?-?-?-?-?-?-?-?-?-?-?- 17w 1d 167 lb 2 oz (-14 oz) 111/73 Negative -?-?-?-?-?-?-?-?-?-?-?-?- Negative 150 -?--?-?-?-?-?-?-?-?-?-?-?- SM- no vb lof cr amping 02/21/25 -?-?-?-?-?-?-?-?-?-?-?-?- 21w 0d 170 lb 8 oz (+2 lb 8 oz) 103/68 Negative -?-?-?-?-?-?-?-?-?-?-?-?- Negative 158 21 -?-?-?-?-?-?-?-?-?-?-?-?- KW- no vb/lof/ct x. good fm. will get thyroid labs today. many questions answered. 03/22/25 -?-?-?-?-?-?-?-?-?-?-?-?- 25w 1d 178 lb 1 oz (+10 lb 1 oz) 111/75 Negative -?-?-?-?-?-?-?-?-?-?-?-?- Negative 142 26 -?-?-?-?-?-?-?-?-?-?-?-?- MH-No VB, LOF. G ood FM. Discussed managing sciatic pain. [facility] NST FHR Rate Baby A NST Reactive:: Yes FHR Category:: Category I Assessment & Plan (1) Trauma during : COMMENT: Minimal trauma per history and symptoms. Reactive nonstress test and patient is Rh+. Recommended routine follow-up. Will discharge to home.
== END 2025-04-02 19:02 | disposition home or self-care (01) ==
LOC: WPOUT 18:22 → WP 18:23
PROVIDERS: PCP Family Medicine; Referring Provider Obstetrics & Gynecology; Visit Provider Obstetrics & Gynecology
DX: O9A.212 Injury, poisoning and certain other consequences of external causes complicating pregnancy, second trimester (principal); T14.90XA Injury, unspecified, initial encounter; Z3A.26 26 weeks gestation of pregnancy; N96 Recurrent pregnancy loss; O99.892 Other specified diseases and conditions complicating childbirth
CPT/HCPCS: 59025; 59050; 99221; G0378

== ENCOUNTER → 2025-04-18 | Outpatient (CLI) | payer BC, SELFPAY ==
[2025-04-18 12:24] LABS: Hematocrit 36.6 % (37-47); Hemoglobin 12.5 g/dL (12.0-15.0); Immature Granulocytes Count 0.060 X10^3/uL (0.0-0.0); Mean Corp Hgb Conc 34.2 g/dL (32-36); Mean Corpuscular Volume 89.5 fL (81-99); Mean Platelet Vol. 10.0 fl (6.2-12.0); NRBC Flagged by Analyzer 0 % (0-5); Platelet Count 228 K/mm3 (150-450); RBC Distribution Width CV 12.5 % (11.6-14.6); RBC Distribution Width SD 41.0 fl (35.1-43.9); Red Blood Count 4.09 M/mm3 (4.2-5.4); White Blood Count 8.6 K/mm3 (4.4-11.0)
[2025-04-18 13:23] LABS: HIV Nonreactive (Nonreactive); Syphilis Antibodies Nonreactive (Nonreactive)
[2025-04-18 13:30] LABS: Glucose Challenge Gest 1H 50g 142 mg/dL (70-140)
[2025-04-18 14:23] LABS: Free T3 2.8 pg/mL (2.18-3.98)
== END | disposition home or self-care (01) ==
LOC: BWCLAB 10:57
PROVIDERS: Internal Medicine Endocrinology, Diabetes & Metabolism; Nurse Practitioner Women's Health; PCP Family Medicine; Visit Provider Obstetrics & Gynecology
DX: Z13.1 Encounter for screening for diabetes mellitus (principal); O09.92 Supervision of high risk pregnancy, unspecified, second trimester; Z3A.00 Weeks of gestation of pregnancy not specified; E04.1 Nontoxic single thyroid nodule; O99.280 Endocrine, nutritional and metabolic diseases complicating pregnancy, unspecified trimester
CPT/HCPCS: 36415; 82950; 84439; 84443; 84481; 85025; 86703; 86780

== ENCOUNTER → 2025-04-26 | Outpatient (CLI) | payer BC, SELFPAY ==
[2025-04-26 10:47] LABS: Glucose GTT-Gestation. Fasting 89 mg/dL (<105)
== END | disposition home or self-care (01) ==
LOC: LAB 09:53
PROVIDERS: PCP Family Medicine; Referring Provider Nurse Practitioner Women's Health; Visit Provider Nurse Practitioner Women's Health
DX: O99.810 Abnormal glucose complicating pregnancy (principal); Z3A.00 Weeks of gestation of pregnancy not specified
CPT/HCPCS: 36415; 82951; 82952

== ENCOUNTER → 2025-05-09 | Outpatient (CLI) | payer BC, SELFPAY ==
[2025-05-09 09:05] LABS: Glucose GTT-Gestation. Fasting 86 mg/dL (<105)
[2025-05-09 11:04] LABS: Glucose GTT-Gestational 1 Hr 168 mg/dL (<190)
[2025-05-09 13:02] LABS: Glucose GTT-Gestational 2 Hr 158 mg/dL (<165)
[2025-05-09 13:09] LABS: Glucose GTT-Gestational 3 Hr 116 L (<145)
== END | disposition home or self-care (01) ==
LOC: LAB 08:12
PROVIDERS: PCP Family Medicine; Referring Provider Obstetrics & Gynecology; Visit Provider Obstetrics & Gynecology
DX: O99.810 Abnormal glucose complicating pregnancy (principal); Z3A.00 Weeks of gestation of pregnancy not specified
CPT/HCPCS: 36415; 82951; 82952

== ENCOUNTER → 2025-05-26 | Outpatient (CLI) | payer BC, SELFPAY ==
--- NOTE | 2025-06-06 16:18 | US_ITS ---
PROCEDURE: OB LIMITED WITH BIOMETRICS 06/06/2025 REASON FOR EXAM: 36WK GROWTH TECHNIQUE: Procedure Code: [id number] Modality: US Procedure: OB LIMITED WITH BIOMETRICS COMPARISON: 24 Nov 2024. FINDINGS Number: 1 Position: cephalic Placental Position: anterior Placenta grade: 3 DIMENSIONS: Biparietal Diameter: 9.2 cm / 37 weeks and 4 days Head Circumference: 32.9 / 37 weeks and 2 days Abdominal Circumference: 32.2 cm / 36 weeks and 1 day Femur Length: 6.7 cm / 34 weeks and 4 days ESTIMATED WEIGHT: 2843 grams ESTIMATED WEIGHT PERCENTILE (24+ weeks): 53rd ESTIMATED GESTATIONAL AGE: Baseline: 36 weeks and 0 days By Ultrasound: 36 weeks and 5 days ESTIMATED DATE OF DELIVERY: Baseline: July 04, 2025 By Ultrasound: June 29 BIOPHYSICAL ASSESSMENT: Amniotic Fluid Volume: Adequate Amniotic Fluid Index: 18.6 cm (8-24 cm normal range) Cardiac Motion: 155 beats per minute (average) Trunk and Limb Motion: Present. US/OB Limited With Biometrics IMPRESSION: 1. Single living intrauterine gestation at 36 weeks and 0 days in the cephalic presentation. 2. heart rate of 155 bpm. 3. Estimated weight of 2843 grams, 53rd percentile. Reading Location: [id number]
== END | disposition home or self-care (01) ==
PROVIDERS: PCP Family Medicine; Referring Provider Obstetrics & Gynecology; Visit Provider Obstetrics & Gynecology
DX: O09.92 Supervision of high risk pregnancy, unspecified, second trimester (principal); Z3A.00 Weeks of gestation of pregnancy not specified
CPT/HCPCS: 76816

== ENCOUNTER 2025-05-28 17:10 | Outpatient (CLI) | payer BC, SELFPAY ==
--- OUTSIDE RECORDS SUMMARY | 2025-05-28 17:17 | XMS RPT_ITS | CCD ---
Author Organization [facility] Care Team Providers Care Forester Aide Name Role Phone SHAWN JOHNSON, DR HENDERSON Primary Care Physician ALAINA HATHAWAYM, HOWARD Sears Attending Unavailable SHAWN JOHNSON, DR HENDERSON Primary Care HOWARD Johnston DPM Attending Unavailable SHAWN JOHNSON, DR HENDERSON Primary Care Dr. Antony Tello Primary Care Provider Dr. Antony Escobar Referring Provider Dr. Denis Galdamez Attending Provider Dr. Carmelita Weeks Attending Provider Dr. Beatriz Escobar MD Primary Care Provider Lyssa Aguila CNM Attending Provider [phone] Lyssa Aguila CNM Referring Provider [phone] Dr. Beatriz Escobar MD Referring Provider Dr. Beatriz Escobar MD Primary Care Provider Dr. Beatriz Escobar MD Referring Provider Lyssa Aguila CNM Attending Provider [phone] Lyssa Aguila CNM Referring Provider [phone] Manda Horta Attending Provider [phone] Manda Horta Referring Provider King ALEX, Dr. Barrios Attending Provider Dr. Denis Galdamez MD Referring Provider Atilio JOHNSON, Dr. Griffin Attending Provider CARLA, MANDA S Referring Unavailable BEATRIZ ESCOBAR Primary Care Unavailabl YASMEEN Irizarry Attending Unavailable SONJA HU Attending Unavailable BEATRIZ ESCOBAR Primary Care Unavailabl e MANDA AGUIRRE Referring Unavailable Shawn JOHNSON, Dr. Henderson [facility] Physicia n Shawn JOHNSON, Dr. Henderson Referring Provider [phone] Carla MEDICAL ASSISTANT SECRETARY-CManda Attending Physician [phone] King ALEX, Dr. Barrios Attending Physician Atilio JOHNSON, Dr. Griffin Attending Physician Mingo VIRK, Lyssa Attending Physician [phone] Lyssa Aguila CNM Referring Provider [phone] Tucker JOHNSON, Dr. Thomas Attending Physician Unavailkavitha Ceballos MD, Dr. Thomas Referring Provider Unavailab jeramie Ceballos MD, Dr. Thomas Nurse Practitioner Unavailab jeramie Escobar MD, Dr. Henderson [facility] Physicia n Shawn JOHNSON, Dr. Henderson Referring Provider [phone] Carla MEDICAL ASSISTANT SECRETARY-CManda Attending Physician [phone] King ALEX, Dr. Barrios Attending Physician Dr. Carmelita Weeks DO Attending Physician Carla MEDICAL ASSISTANT SECRETARY-CManda Referring Provider [phone] Beatriz Escobar Primary Care Unavailable Beatriz Escobar Referring Unavailable Lyssa Aguila Attending Unavailable Beatriz Escobar Referring Unavailable Carmelita Weeks Attending Unavailabl e Shawn, Christopher Primary Care Unavailable Rancadence, Christopher Primary Care Unavailable Beatriz Escobar Referring Unavailable Lyssa Aguila Attending Unavailable Manda Aguirre Attending Unavailable Shawn, Christdilciaer Primary Care Unavailable Rancadence, Christtracy Referring Unavailable Rancadence, Christopher Primary Care Unavailable Lyssa Aguila Attending Unavailable Lyssa Aguila Referring Unavailable Shawn, Christopher Primary Care Unavailable Lyssa Aguila Attending Unavailable Lyssa Aguila Referring Unavailable Carmelita Weeks Referring Unavailabl e Carmelita Weeks Attending Unavailabl e [place], [place] Primary Care Unavailable [facility] Primary Care Unavailable Vande Velde, Carmelita Attending Unavailabl e Vande Velde, Carmelita Referring Unavailabl e Vande Velde, Carmelita Attending Unavailabl e [place], [place] Primary Care Unavailable [facility], [place] Primary Care Unavailable [place], [facility] Referring Unavailable Vande Raeann, Carmelita Attending Unavailabl e [place], [place] Primary Care Unavailable William Ceballos Referring Unavailable William Ceballos Attending Unavailable William Ceballos Consulting Unavailable [place] Referring Unavailable Lyssa Aguila Attending Unavailable [facility] Primary Care Unavailable [facility], [place] Primary Care Unavailable [place], [place] Referring Unavailable CarlaManda montenegro Attending Unavailable [facility] Primary Care Unavailable [facility], [place] Referring Unavailable Denis Galdamez Attending Unavailable Manda Aguirre Attending Unavailable [facility], [place] Primary Care Unavailable [facility], [place] Referring Unavailable [facility], [place] Primary Care Unavailable [facility], [place] Referring Unavailable Gaby Trimble Attending Unavailable Vande Velde, Carmelita Attending Unavailabl e [place], [place] Primary Care Unavailable [facility], [facility] Referring Unavailable [facility], [place] Primary Care Unavailable Lyssa Aguila Referring Unavailable Lyssa Aguila Attending Unavailable [facility] Primary Care Unavailable Lyssa Aguila Referring Unavailable Lyssa Aguila Attending Unavailable SycamoreManda Referring Unavailable Manda Aguirre Attending Unavailable [facility], [place] Primary Care Unavailable [place], [place] Primary Care Unavailable Manda Aguirre Referring Unavailable Manda Aguirre Attending Unavailable Denis Galdamez Attending Unavailable [facility] Primary Care Unavailable Denis Galdamez Referring Unavailable [facility] Primary Care Unavailable William Ceballos Referring Unavailable William Ceballos Attending Unavailable [facility] Primary Care Unavailable [facility], [place] Referring Unavailable Lyssa Aguila Attending Unavailable Allergies Allergy Classification Reported Allergen(s) Allergy Type Date of Onset Reaction(s) Facility (17 sources) Penicillins Allergy to substance 09-19-2021 Unknown [facility] Comment on above: as a (1 source) Penicillin; Translations: [penicillins] Drug Allergy [facility] (1 source) Penicillins Drug allergy (disorder) 05-16-2025 [facility] Repository Medications Current Medications Medication Drug Class(es) Dates Sig (Normalized) Sig (Original) acetaminophen 500 mg oral tablet (1 source) Start: 09-06-2022 Tylenol Extra Strength 500 mg oral tablet Dose : 500 mg = 1 tab(s), Oral, Daily, PRN as needed for pain Start Date: 09/06/22 Status: Ordered methIMAzole 5 mg oral tablet (7 sources) Thyroid Hormone Synthesis Inhibitor Start: 01-17-2025 take 2.5 mg by mouth every other day Methimazole 5 mg tablet Active 2.5 mg PO .every other day 21 07January 17, 2025 12:00am Complies with drug therapy Multivitamin preparation (3 sources) Start: 09-06-2022 take 1 tablet by mouth once daily Multivitamin Dose = 1 tab(s), Oral, Daily, 0 Refill(s) Start Date: 09/06/22 Status: Ordered Start: 05-10-2022 take 1 tablet by [facility] once daily Multivitamin Active 1 TABLET PO DAILY May 10, 2022 12:00am Mv-Mins 06-Wmnp-Ybwwe No.1-D garvey (Pnv-Lowell) 28-1-300 mg capsule (13 sources) Start: 11-12-2024 Mv-Mins 71-Iro n-Folic No.1-Dha (Pnv-[place]) 28-1-300 mg capsule Active 1 NMA PO DAILY November 12, 2024 12:00am Complies with drug therapy Start: 11-12-2024 Mv-Mins 71-Iro n-Folic No.1-Dha (Pnv-[place]ell) 28-1-300 mg capsule Active NMA PO November 12, 2024 12:00am [place] (Nk) (2 sources) Start: 09-19-2021 [place] (Nk) A ctive September 19, 2021 12:00am Completed/Discontinued Medications Medication Drug Class(es) Dates Sig (Normalized) Sig (Original) amphetamine aspartate 3.75 mg / amphetamine sulfate 3.75 mg / dextroamphetamine saccharate 3.75 mg / dextroamphetamine sulfate 3.75 mg oral tablet (17 sources) Central Nervous System Stimulant Start: 05-15-2013 End: 02-29-2020 take 1 tablet by mouth twice daily Dextroamphetamine-A mphetamine 15 MG tablet Discontinued 15 mg PO TWICE A DAY May 15, 2013 1:00am February 29, 2020 2:48pm aspirin 81 mg chewable tablet (17 sources) Platelet Aggregation Inhibitor, Nonsteroidal Anti-inflammatory Drug Start: 08-03-2021 End: 08-08-2021 take 1 tablet by mouth once daily Aspirin (Baby Aspirin) 81 mg Tablet,Chewable Discontinued 81 mg PO DAILY August 03, 2021 1:00am August 08, 2021 2:08pm cholecalciferol 0.025 mg oral capsule (13 sources) Vitamin D Start: 09-05-2023 End: 08-23-2024 take 1 capsule by mouth once daily Cholecalciferol (Vitamin D3) 25 mcg (1,000 unit) capsule Discontinued 25 ug PO DAILY September 05, 2023 1:00am August 23, 2024 4:21pm docosahexaenoic acid 200 mg oral capsule (13 sources) Start: 08-23-2024 End: 11-12-2024 Docosahexaenoic Acid ( Dha) 200 mg capsule Discontinued mg PO August 23, 2024 1:00am November 12, 2024 2:29pm Norgestimate-Ethinyl Estradiol (15 sources) Progestin, Estrogen Start: 10-29-2022 End: 09-05-2023 Norgestimate-Ethiny l Estradiol (Sprintec (28)) 0.25-35 mg-mcg tablet Discontinued 1 {tbl} PO DAILY 84 October 29, 2022 12:00am September 05, 2023 3:03pm Start: 10-29-2022 End: 09-05-2023 Norgestimate-Ethinyl Estradi ol (Sprintec (28)) 0.25-35 mg-mcg tablet Discontinued 1 {tbl} PO DAILY October 29, 2022 12:00am September 05, 2023 3:03pm Start: 10-29-2022 take 1 tablet by real once daily Norgestimate-Ethinyl Estradiol (Sprintec (28)) 0.25-35 mg-mcg tablet Active 1 TABLET PO DAILY October 29, 2022 12:00am ferrous sulfate 325 mg oral tablet (20 sources) Start: 09-05-2023 End: 04-02-2025 take 1 tablet by mouth once daily Ferrous Sulfate (Feosol) 325 mg (65 mg iron) tablet Discontinued 325 mg PO DAILY September 05, 2023 1:00am April 02, 2025 6:33pm Start: 05-10-2022 End: 10-29-2022 take 1 tablet [...] 03, 2021 1:00am August 16, 2021 2:41pm anemia ibuprofen 800 mg oral tablet (17 sources) Nonsteroidal Anti-inflammatory Drug Start: 08-08-2021 End: 09-19-2021 take 1 tablet by mouth every eight hours as needed for pain Ibuprofen 800 mg tablet Discontinued 800 mg PO Q8H as needed for pain 30 7 0 August 08, 2021 1:00am September 19, 2021 1:32pm Multivitamin tablet (13 sources) Start: 05-10-2022 End: 09-05-2023 Multivitamin tablet Discontinued 1 {tbl} PO DAILY May 10, 2022 12:00am September 05, 2023 3:03pm naproxen sodium 220 mg oral capsule (17 sources) Nonsteroidal Anti-inflammatory Drug Start: 02-29-2020 End: 01-11-2021 take 1 capsule by mouth twice daily as needed Naproxen Sodium (Aleve) 220 mg capsule Discontinued 220 mg PO TWICE A DAY as needed February 29, 2020 12:00am January 11, 2021 3:31pm nitrofurantoin, macrocrystals 25 mg / nitrofurantoin, monohydrate 75 mg oral capsule (10 sources) Nitrofuran Antibacterial Start: 12-27-2024 End: 12-30-2024 take 1 capsule by mouth twice daily at mealtime Nitrofurantoin Monohyd/M-Cryst (Macrobid) 100 mg capsule Discontinued 100 mg PO TWICE A DAY 14 7 0 December 27, 2024 12:00am January 02, 2025 12:00am December 30, 2024 1:29pm must administer with a meal/food ondansetron 4 mg disintegrating oral tablet (17 sources) Serotonin-3 Receptor Antagonist Start: 01-17-2021 End: 08-03-2021 take 1 tablet by mouth every eight hours as needed for nausea and vomiting Ondansetron 4 mg tablet,disintegrat ing Discontinued 4 mg PO Q8H as needed for nausea and vomiting 30 3 January 17, 2021 12:00am August 03, 2021 3:28pm Prenat.Vits,Marcel,Min -Iron-Folic (4 sources) Start: 01-11-2021 End: 08-16-2021 take 1 tablet by mouth once daily Prenat.Vits,Marcel,Mi a-Uogm-Jxxwj Discontinued 1 TABLET PO DAILY January 11, 2021 12:00am August 16, 2021 2:41pm Prenat.Vits,Marcel,Min -Iron-Folic tablet (13 sources) Start: 01-11-2021 End: 08-16-2021 Prenat.Vits,Marcel,Mi w-Uazx-Cagrd tablet Discontinued 1 {tbl} PO DAILY January 11, 2021 12:00am August 16, 2021 2:41pm Start: 01-11-2021 End: 08-16-2021 Prenat.Vits,Marcel,Tpy-Rfdi-Txi ic tablet Discontinued 1 {tbl} PO DAILY January 11, 2021 12:00am August 16, 2021 2:41pm promethazine hydrochloride 12.5 mg oral tablet (17 sources) Phenothiazine Start: 01-11-2021 End: 08-03-2021 take 1 tablet by mouth every six hours as needed for nausea and vomiting Promethazine 12.5 mg tablet Discontinued 12.5 mg PO EVERY 6 HOURS as needed for nausea and vomiting 30 2 January 11, 2021 12:00am August 03, 2021 3:28pm Problems Active Problems Problem Classification Problem Date Documented Da te Episodic/Chronic Anxiety disorders (20 sources) Needle phobia; 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 declines prescription iron and iron infusion. on OTC iron supplementation, discussed risk of transfusion at , patient to consider Diabetes mellitus without complication (17 sources) Abnormal glucose level; Translations: [Other abnormal glucose] 08-09-2021 Episodic Comment on above: nml 3 hr GTT Diabetes or abnormal glucose tolerance complicating ; childbirth; or the puerperium (4 sources) Impaired glucose tolerance in ; Translations: [Abnormal glucose complicating ] Onset: 05-09-2025 04-28-2025 Episodic Comment on above: GTT ordered and was initiated but lab could not get her blood and sent her home. She is willing to try again. Hypertension complicating ; childbirth and the puerperium (17 sources) Severe pre-eclampsia; Translations: [Severe pre-eclampsia, unspecified trimester] 08-09-2021 Episodic Menstrual disorders (20 sources) Amenorrhea; Translations: [Amenorrhea, unspecified] Onset: 11-24-2024 11-01-2024 Chronic Comment on above: HCGx2 Other circulatory disease (20 sources) H/O: varicose veins; Translations: [Personal history of other diseases of the circulatory system] 11-12-2024 Episodic Comment on above: below left knee Other complications of (20 sources) Maternal obesity complicating , childbirth and the puerperium, antepartum; Translations: [Obesity complicating , unspecified trimester] 11-12-2024 Chronic Comment on above: HgbA1c Other complications of (1 source) Obesity complicating , second trimester; Translations: [Obesity complicating , second trimester] Onset: 05-16-2025 Chronic Other complications of (1 source) Obesity complicating , unspecified trimester; Translations: [Obesity complicating , unspecified trimester] Onset: 11-24-2024 Chronic Other complications of (20 sources) High risk ; Translations: [Supervision of high risk , unspecified, unspecified trimester] 08-09-2021 Episodic Comment on above: , ROSE 07/04/25, PC Checo Keenan, Medardo PRR ROSE 08/31/21 PC:Shlomo Spouse: Jan(his first) PRR , ROSE , boy Abad PC Checo Keenan, Medardo Other complications of (4 sources) Nausea and vomiting; Translations: [Vomiting of , unspecified] 07-05-2021 Episodic Other complications of (17 sources) Proteinuria; Translations: [Gestational proteinuria, unspecified trimester] 08-07-2021 Episodic Comment on above: WP celestone and akira wth u/s per SM, cbc, cmp Ur prt/crea (312) Other complications of (20 sources) History of pre-eclampsia; Translations: [Supervision of with other poor reproductive or obstetric history, unspecified trimester] 08-11-2021 Episodic Comment on above: teen and i nduced at 36 wks, recommend baby aspirin, baseline preE labs ordered at new OB teen and i nduced at 36 wks, recommend baby aspirin, Other complications of (17 sources) Reduced movement; Translations: [Decreased movements, unspecified trimester, not applicable or unspecified] 07-05-2021 Episodic Other complications of (15 sources) Spotting per vagina in ; Translations: [Spotting complicating , unspecified trimester] 11-01-2024 Episodic Other complications of (20 sources) H/O: miscarriage; Translations: [Supervision of with other poor reproductive or obstetric history, unspecified trimester] 11-12-2024 Episodic Other complications of (20 sources) Advanced maternal age ; Translations: [Elderly multigravida, unspecified as to episode of care or not applicable] 11-24-2024 Episodic Comment on above: deliver at 39-40 wee ks deliver at 39-40 wee ks. patient prefers 39 weeks (jun 27) Other complications of (13 sources) Vomiting of , unspecified; Translations: [Nausea and vomiting during ] 07-05-2021 Episodic Other complications of (20 sources) Urinary tract infection in ; Translations: [Unspecified infection of urinary tract in , unspecified trimester] 12-29-2024 Episodic Comment on above: +UA. Rx macrobid. Cu lture negative Other complications of (6 sources) Traumatic injury during ; Translations: [Injury, poisoning and certain other consequences of external causes complicating , unspecified trimester] 04-03-2025 Episodic Comment on above: Minimal trauma per h istory and symptoms. Reactive nonstress test and patient is Rh+. Recommended routine follow-up. Will discharge to home. Other complications of (2 sources) Supervision of high risk , unspecified, second trimester; Translations: [Supervision of high risk , unspecified, second trimester] Onset: 05-16-2025 Episodic Other complications of (1 source) Supervision of with other poor reproductive or obstetric history, unspecified trimester; Translations: [Supervision of with other poor reproductive or obstetric history, unspecified trimester] Onset: 05-16-2025 Episodic Other complications of (1 source) Unspecified infection of urinary tract in , second trimester; Translations: [Unspecified infection of urinary tract in , second trimester] Onset: 05-16-2025 Episodic Other complications of (2 sources) Injury, poisoning and certain other consequences of external causes complicating , unspecified trimester; Translations: [Injury, poisoning and certain other consequences of external causes complicating , unspecified trimester] Onset: 05-16-2025 Episodic Other gastrointestinal disorders (17 sources) Constipation; Translations: [Constipation, unspecified] 06-21-2021 Episodic Other hematologic conditions (20 sources) History of anemia; Translations: [Personal history of diseases of the blood and blood-forming organs and certain disorders involving the immune mechanism] 11-12-2024 Episodic Other injuries and conditions due to external causes (1 source) Injury, unspecified, initial encounter; Translations: [Injury, unspecified, initial encounter] Onset: 05-17-2025 Episodic Other screening for suspected conditions (not mental disorders or infectious disease) (20 sources) Thyroid hormone tests abnormal; Translations: [Other specified abnormal findings of blood chemistry] Onset: 05-04-2025 12-29-2024 Episodic Residual codes; unclassified (20 sources) Positive measurement finding; Translations: [Positive test for human papillomavirus (HPV)] 01-11-2021 Episodic Comment on above: 04/2020 [facility], record scanned Residual codes; unclassified (20 sources) Past history of procedure; Translations: [Other specified postprocedural states] 01-11-2021 Episodic Comment on above: [facility] pap 04/2020 pos HPV, neg pap. Neg colp wo bx per RR at [facility] 05/2020 Residual codes; unclassified (1 source) 33 weeks gestation of ; Translations: [33 weeks gestation of ] Onset: 05-16-2025 Episodic Residual codes; unclassified (1 source) 29 weeks gestation of ; Translations: [29 weeks gestation of ] Onset: 04-18-2025 Episodic Syncope (17 sources) Syncope; Translations: [Syncope and collapse] 08-11-2021 [...] did not get US of thyroid done. on methimazole, repe at labs in february. Past or Other Problems Problem Classification Problem Date Documented Date Episodic/Chronic Genitourinary symptoms and ill-defined conditions (1 source) Dysuria; Translations: [Dysuria] Onset: 12-27-2024 Episodic Other circulatory disease (1 source) Personal history of other diseases of the circulatory system; Translations: [Personal history of other diseases of the circulatory system] Onset: 11-24-2024 Episodic Other complications of (1 source) Supervision of high risk , unspecified, unspecified trimester; Translations: [Supervision of high risk , unspecified, unspecified trimester] Onset: 12-01-2024 Episodic Other complications of (1 source) Spotting complicating , unspecified trimester; Translations: [Spotting complicating , unspecified trimester] Onset: 09-08-2024 Episodic Other hematologic conditions (1 source) Personal history of diseases of the blood and blood-forming organs and certain disorders involving the immune mechanism; Translations: [Personal history of diseases of the blood and blood-forming organs and certain disorders involving the immune mechanism] Onset: 11-24-2024 Episodic Other and delivery including normal (20 sources) ; Translations: [Encounter for supervision of normal , unspecified, unspecified trimester] Onset: 12-31-2024 08-09-2021 Episodic Comment on above: declined NIPT & Garza ier testing GBS neg. anatomy nl, NIPT- low risk female, declines carrier NIPT: declined hernandez er testing. NIPT:low risk, male declined carrier testing. NIPT:low risk, male declined carrier testing. anatomy nl Residual codes; unclassified (1 source) 8 weeks gestation of ; Translations: [8 weeks gestation of ] Onset: 11-24-2024 Episodic Residual codes; unclassified (1 source) Other specified postprocedural states; Translations: [Other specified postprocedural states] Onset: 11-24-2024 Episodic Results Test Name Value Interpretation Reference Range Facility Pit Furnace Operator Office Visit Reporton 05-16-2025 Pit Furnace Operator Office Visit Report [facility]'s [address], [address] [place] [address] OFFICE VISIT Date of Service: 05/16/25 MR#: [id number] Acct: [id number] Name: DEMARCUS ABAD Rep #: [id number] : 1990 Provider: Dr. Carmelita Rossi DO Age/Sex: 35/F [place] [facility] [place]: Signed Intake Vital Signs 03/22/25 10:36 04/28/25 10:42 05/16/25 10:09 Height 5 ft 2 in 5 ft 2 in 5 ft 2 in Weight: 190 lb 4 oz BMI 34.7 BP 119/80 Intake Visit Reasons: 32 WK 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 Is patient in pain?: No Allergies Penicillins Allergy (Unknown, Verified 05/16/25 10:10) Unknown Medications ???Medication ???Instructions ???Recorded ???Confirmed ???Type multivit-min no.71-iron fum 28 1 cap PO DAILY 11/12/24 05/16/25 H istory mg-folate no.1 1 mg-dha 300 mg capsule (PNV-[place]) methimazole 5 mg tablet 2.5 mg (1/2 x 5 mg) PO .every 01/0405/16/25 Rx other day #15 tabs Last Menstrual Period: 09/27/24 Zika: Zika virus screening: Negative : No PFSH PFSH Medical History Hot thyroid nodule Hx of varicose veins of lower extremity Depression Nodular goiter HPV (human papilloma virus) infection Thyroid disorder Pre-eclampsia Abnormal glucose Anemia Surgical History History of bunionectomy of right great toe [place] teeth extracted History of colposcopy Family History Mother Hypertension Father Diabetes Aunt Thyroid disorder Maternal- unknown type Social History adopted: No household members: spouse and children housing: house number of children: 2 current occupational status: unemployed current occupation: 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 Date Name GA/Weeks Outcome Route Bth Weight Gen Labor Lgth Anesthesia Del Locatn Provider FOB Unknown 08/2024 6 spontaneous 04/30/08 Shlomo 36 live - 6# Male epidural [facility] Taye 08/08/21 Emalie 36 live - 6lbs 14oz Female epidural [facility] Va nde Velde Delivery Date: 04/30/08 Last Updated by: Manda Aguirre MEDICAL ASSISTANT SECRETARY, MEDICAL ASSISTANT SECRETARY-C Induced to preeclampsia, teen Delivery Date: 08/08/21 Last Updated by: Ashley Cortes IOL pre-e HPI 32 WK OB Details: DEMARCUS ABAD is a 35 year old who presents for routine OB visit. OB Visit [facility] Calculator Estimated Delivery Date Method Current WG Current Estimate 07/04/25 LMP (Certain) 33w 0d Other Estimates 07/07/25 Ultrasound #1 32w 4d Expected Delivery Route/Plan Labor Preferences- CB/BF classes: [] labor support person: [] labor intervention preferences: [] pain management options preferred: [] cut cord/dad catch: [] : [] PP control planned: [] discussed possible routes of delivery and associated risks: [] special requests: [] Specific Issue/Plans Covid status: [] Flu vaccine: [] Tdap vaccine: [] Rhogam: [] LARC form signed: yes Problem list reviewed and updated with the most current plan of care details and appropriate orders placed. Relevant counseling for the gestational age provided. Continue routine care and follow up unless otherwise noted in visit notes/problem list details Initial Weight: 168 lb Date -???-???-???-???-??? -???-???-???-???-??? -???-???- EGA Weight BP Urine Prot -???-???-???-???-??? -???-???-???-???-??? -???-???- Glucose FHR FuHt Pres Dilation -???-???-???-???-??? -???-???-???-???-??? -???-???- Effaced St Visit Note 11/24/24 -???-???-???-???-??? -???-???-???-???-??? -???-???- 8w 2d 168 lb 8 oz (+8 oz) 108/74 -???-???-???-???-??? -???-???-???-???-??? -???-???- 162 -???-???-???-???-??? -???-???-???-???-??? -???-???- KW- CRL cons with dates. accepts NIPT. 12/27/24 -???-???-???-???-??? -???-???-???-???-??? -???-???- 13w 0d 166 lb (-2 lb) 115/73 Negative (more content not included)... Normal [facility] Gestational GTT 3HR 100gon 1 07-09-2024 GEST GTT 100gm Normal [facility] Comment on above: Order Comment: Y Result Comment: FAST ING 86 Col: 05/09/25 0831 GLUCOSE TOLERANCE TEST FOR Reference Interval GESTATIONAL DIABETES Fasting <105 mg/dL 1 hour <190 mg/dl 2 hour <165 mg/dl 3 hour <145 mg/dl 1 HR GLU 168 Col: 05/09/25 1015 2 HR GLU 158 Col: 05/09/25 1112 3 HR GLU 116 Col: 05/09/25 1212 Performed By: #### L 501.0900, M100.2200, L7000.1800 #### [facility] [address] [place], [address] Laboratory - Chemistry and C hemistry - challengeOrdered By: Carmelita Cary on 04-28-2025 Glucose Ql (U) Negative [facility] - UrinalysisOrder ed By: Carmelita Cary on 04-28-2025 Protein Ql (U) Negative [facility] Pit Furnace Operator Office Visit Reporton 04-28-2025 Pit Furnace Operator Office Visit Report [facility] [address], [address] [place] [address] OFFICE VISIT Date of Service: 04/28/25 MR#: [id number] Acct: [id number] Name: DEMARCUS ABAD Rep #: [id number] : 1990 Provider: Dr. Carmelita Rossi DO Age/Sex: 35/F Location: [facility] [place] Status: Signed Intake Vital Signs 04/18/25 10:59 04/28/25 10:42 04/28/25 10:42 Height 5 ft 2 in 5 ft 2 in 5 ft 2 in Weight: 187 lb BMI 34.2 BP 114/71 Intake Visit Reasons: Discuss 3hr glucose *do not shorten Spouting Installer Required: No Is patient in pain?: No Allergies Penicillins Allergy (Unknown, Verified 04/28/25 10:41) Unknown Medications ???Medication ???Instructions ???Recorded ???Confirmed ???Type multivit-min no.71-iron fum 28 1 cap PO DAILY 11/12/24 04/28/25 H istory mg-folate no.1 1 mg-dha 300 mg capsule (PNV-[place]) methimazole 5 mg tablet 2.5 mg (1/2 x 5 mg) PO .every 01/0404/28/25 Rx other day #15 tabs Last Menstrual Period: 09/27/24 Zika: Zika virus screening: Negative : No PFSH PFSH Medical History Hot thyroid nodule Hx of varicose veins of lower extremity Depression Nodular goiter HPV (human papilloma virus) infection Thyroid disorder Pre-eclampsia Abnormal glucose Anemia Surgical History History of bunionectomy of right great toe [place] teeth extracted History of colposcopy Family History Mother Hypertension Father Diabetes Aunt Thyroid disorder Maternal- unknown type Social History adopted: No household members: spouse and children housing: house number of children: 2 current occupational status: unemployed current occupation: 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 Date Name GA/Weeks Outcome Route Bth Weight Gen Labor Lgth Anesthesia Del Locatn Provider FOB Unknown 08/2024 6 spontaneous 04/30/08 Shlomo 36 live - 6# Male epidural [facility] Taye 08/08/21 Emalie 36 live - 6lbs 14oz Female epidural [facility] [place] n[place]de Delivery Date: 04/30/08 Last Updated by: Manda Aguirre MEDICAL ASSISTANT SECRETARY, MEDICAL ASSISTANT SECRETARY-C Induced to preeclampsia, teen Delivery Date: 08/08/21 Last Updated by: Ashley Cortes IOL pre-e HPI Discuss 3hr glucose *do not shorten Details: DEMARCUS ABAD is a 35 year old who presents for routine OB visit. OB Visit ROSE Calculator Estimated Delivery Date Method Current WG Current Estimate 07/04/25 LMP (Certain) 30w 3d Other Estimates 07/07/25 Ultrasound #1 30w 0d Expected Delivery Route/Plan Labor Preferences- CB/BF classes: [] labor support person: [] labor intervention preferences: [] pain management options preferred: [] cut cord/dad catch: [] : [] PP control planned: [] discussed possible routes of delivery and associated risks: [] special requests: [] Specific Issue/Plans Covid status: [] Flu vaccine: [] Tdap vaccine: [] Rhogam: [] LARC form signed: yes Problem list reviewed and updated with the most current plan of care details and appropriate orders placed. Relevant counseling for the gestational age provided. Continue routine care and follow up unless otherwise noted in visit notes/problem list details Initial Weight: 168 lb Date -???-???-???-???-??? -???-???-???-???-??? -???-???- EGA Weight BP Urine Prot -???-???-???-???-??? -???-???-???-???-??? -???-???- Glucose FHR FuHt Pres Dilation -???-???-???-???-??? -???-???-???-???-??? -???-???- Effaced St Visit Note 11/24/24 -???-???-???-???-??? -???-???-???-???-??? -???-???- 8w 2d 168 lb 8 oz (+8 oz) 108/74 -???-???-???-???-??? -???-???-???-???-??? -???-???- 162 -???-???-???-???-??? -???-???-???-???-??? -???-???- KW- CRL cons with dates. accepts NIPT. 12/27/24 -???-???-???-???-??? -???-???-???-???-??? -???-? (more content not included)... Normal [facility] Gestational GTT 3HR 100gon 1 GEST GTT 100gm Normal [facility] Comment on above: Order Comment: Y Result Comment: FAST ING 89 Col: 04/26/25 1004 GLUCOSE TOLERANCE TEST FOR Reference Interval GESTATIONAL DIABETES Fasting <105 mg/dL 1 hour <190 mg/dl 2 hour <165 mg/dl 3 hour <145 mg/dl 1 HR GLU Col: 04/26/25 1102 2 HR GLU Col: 04/26/25 1202 3 HR GLU Col: 04/26/25 1302 Performed By: #### L 501.0900, M100.2200, L7000.1800 #### [facility] [address] [place], [address] Quantitative serum or plasma 3 hour gestational glucose tolerance panelOrdered By: Manda Aguirre on 04-26-2025 Glucose tolerance 3 hours gestational panel See comment [facility] Comment on above: FASTING 89 Col: 04/07 07/31 1004GLUCOSE TOLERANCE TEST FOR Reference Interval GESTATIONAL DIABETES Fasting <105 mg/dL 1 hour <190 mg/dl 2 hour <165 mg/dl 3 hour <145 mg/dl Absolute lymphocyte countOrd ered By: Manda Aguirre on 04-18-2025 Lymphocytes Auto (Unsp spec) [#/Vol] 1.46 10*3/uL 0.83-4.51 [facility] Absolute neutrophil countOrd ered By: Manda Aguirre on 04-18-2025 Neutrophils (Bld) [#/Vol] 6.5 10*3/uL 2.0-7.7 [facility] Automated lymphocyte count a s percentage of total leukocytesOrdered By: Manda Aguirre on 04-18-2025 Lymphocytes/100 WBC Auto (Unsp spec) 16.9 % Low 19-41 [facility] Basophil percentageOrdered B y: Manda Aguirre on 04-18-2025 Basophils/100 WBC (Bld) 0.2 % 0-1 [facility] CBC W/Diff, Automatedon 04-06 Absolute Lymph 1.46 X10 3/uL Normal 0.83-4.51 [facility] Comment on above: Performed By: #### L 501.0900, M100.2200, L7000.1800 #### [facility] [address] [place], [address] Absolute Neut 6.5 X10 3/uL Normal 2.0-7.7 [facility] Comment on above: Performed By: #### L 501.0900, M100.2200, L7000.1800 #### [facility] [address] [facility] [place], [address] Basophils/100 WBC (Bld) 0.2 % Normal 0-1 [facility] Comment on above: Performed By: #### L 501.0900, M100.2200, L7000.1800 #### [facility] [address] [place], [address] Eosinophils/100 WBC (Bld) 0.5 % Normal 0-5 [facility] Comment on above: Performed By: #### L 501.0900, M100.2200, L7000.1800 #### [facility] [address] [place], [address] Erythrocyte distribution width (RBC) [Ratio] 12.5 % Normal 11.6-14.6 [facility] Comment on above: Performed By: #### L 501.0900, M100.2200, L7000.1800 #### [facility] [address] [place], [address] Hematocrit (Bld) [Volume fraction] 36.6 % Low 37-47 [facility] Comment on above: Performed By: #### L 501.0900, M100.2200, L7000.1800 #### [facility] [address] [place], [address] Hemoglobin (Bld) [Mass/Vol] 12.5 g/dL Normal 12.0-15.0 [facility] Comment on above: Performed By: #### L 501.0900, M100.2200, L7000.1800 #### [facility] [address] [place], [address] IG% 0.700 Normal 0.0-0.9 [facility] Comment on above: Result Comment: IG% - Immature Granulocytes (promyelocytes, myelocytes and metamyelocytes) > 1% indicates that a LEFT SHIFT is Present. Performed By: #### L 501.0900, M100.2200, L7000.1800 #### [facility] [address] [place], [address] Lymphocytes/100 WBC (Bld) 16.9 % Low 19-41 [facility] Comment on above: Performed By: #### L 501.0900, M100.2200, L7000.1800 #### [facility] [address] [place], [address] MCH (RBC) [Entitic mass] 30.6 pg Normal 27.0-32.0 [facility] Comment on above: Performed By: #### L 501.0900, M100.2200, L7000.1800 #### [facility] [address] [place], [address] MCHC (RBC) [Mass/Vol] 34.2 g/dL Normal 32-36 [facility] Comment on above: Performed By: #### L 501.0900, M100.2200, L7000.1800 #### [facility] [address] [place], [address] MCV (RBC) [Entitic vol] 89.5 fL Normal 81-99 [facility] Comment on above: Performed By: #### L 501.0900, M100.2200, L7000.1800 #### [facility] [address] [place], [address] Monocytes/100 WBC (Bld) 6.6 % Normal 0-10 [facility] Comment on above: Performed By: #### L 501.0900, M100.2200, L7000.1800 #### [facility] [address] [place], [address] Neutrophils/100 WBC (Bld) 75.1 % High 47-70 [facility] Comment on above: Performed By: #### L 501.0900, M100.2200, L7000.1800 #### [facility] [address] [place], [address] Nucleated RBC (Bld) [#/Vol] 0 10*3/uL Normal 0-5 [facility] Comment on above: Performed By: #### L 501.0900, M100.2200, L7000.1800 #### [facility] [address] [place], [address] Platelet mean volume (Bld) [Entitic vol] 10.0 fL Normal 6.2-12.0 [facility] Comment on above: Performed By: #### L 501.0900, M100.2200, L7000.1800 #### [facility] [address] [place], [address] Platelets (Bld) [#/Vol] 228 10*3/uL Normal 150-450 [facility] Comment on above: Performed By: #### L 501.0900, M100.2200, L7000.1800 #### [facility] [address] [place], [address] RBC (Bld) [#/Vol] 4.09 10*6/uL Low 4.2-5.4 [facility] Comment on above: Performed By: #### L 501.0900, M100.2200, L7000.1800 #### [facility] [address] [place], [address] RDW SD 41.0 fl Normal 35.1-43.9 [facility] Comment on above: Performed By: #### L 501.0900, M100.2200, L7000.1800 #### [facility] [address] [place], [address] WBC (Bld) [#/Vol] 8.6 10*3/uL Normal 4.4-11.0 [facility] Comment on above: Performed By: #### L 501.0900, M100.2200, L7000.1800 #### [facility] [address] [place], [address] Eosinophil percentageOrdered By: Manda Aguirre on 04-18-2025 Eosinophils/100 WBC (Bld) 0.5 % 0-5 [facility] Erythrocyte distribution wid th ratioOrdered By: Manda Aguirre on 04-18-2025 Erythrocyte distribution width (RBC) [Ratio] 12.5 % 11.6-14.6 [facility] Erythrocyte distribution wid th standard deviationOrdered By: Manda Aguirre on 04-18-2025 Erythrocyte distribution width (RBC) [Ratio] 41.0 fl 35.1-43.9 [facility] Free Y6Mpksaup By: Denis Galdamez on 04-18-2025 Free T3 [Mass/Vol] 2.8 pg/mL 2.18-3.98 [facility] Free T3on 04-18-2025 Free T3 [Mass/Vol] 2.8 pg/mL Normal 2.18-3.98 [facility] Comment on above: Performed By: #### L 501.0900, M100.2200, L7000.1800 #### [facility] [address] [place], [place], [id number] Glucose Challenge Gest 1H 50 tatyana 04-18-2025 GLU GEST 50g 1H 136 mg/dL Normal 70-140 [facility] Comment on above: Result Comment: AMENDED REPORT 04/18/25 1330 GLU GEST 50g 1H previously reported as: 136 mg/dL Performed By: #### L 501.0900, M100.2200, L7000.1800 #### [facility] [address] [place], [place], [id number] Glucose measurement at 2 meir rs post-dose gestational glucose tolerance testOrdered By: Manda Aguirre on 04-18-2025 Glucose [Mass/Vol] 142 mg/dL High 70-140 [facility] Comment on above: Previous reported re sult: 136 mg/dLEdited by: ALEXANDER on 04/18/25:1330 AMENDED REPORT 04/18/25 1330 GLU GEST 50g 1H previously reported as: 136 mg/dL HIVon 04-18-2025 HIV Non-Reactive Normal Nonreactive [facility] Comment on above: Result Comment: Non- Reactive Reactive Repeatedly reactive samples must be confirmed according to CDC recommended confirmatory algorithms. The subresults for either HIVAG or AHIV can be used as an aid in the selection of the confirmation algorithm for reactive samples. Send out specimens with Reactive results to [facility] for confirmation. Order the HIV antibody detection and differentiation: lc#[id number] Performed By: #### L 501.0900, M100.2200, L7000.1800 #### [facility] [address] [place], [address] Hematocrit Auto (Bld) [Volum e fraction]Ordered By: Manda Aguirre on 04-18-2025 Hematocrit (Bld) [Volume fraction] 36.6 % Low 37-47 [facility] Hemoglobin measurementOrdere d By: Manda Aguirre on 04-18-2025 Hemoglobin (Bld) [Mass/Vol] 12.5 g/dL 12.0-15.0 [facility] Immature granulocytes/100 WB C Auto (Bld)Ordered By: Manda Aguirre on 04-18-2025 Immature granulocytes/100 WBC (Bld) 0.700 % 0.0-0.9 [facility] Comment on above: IG% - Immature Granu locytes (promyelocytes, myelocytes and metamyelocytes) > 1% indicates that a LEFT SHIFT is Present. Laboratory - Chemistry and C hemistry - challengeOrdered By: Carmelita Cary on 04-18-2025 Glucose Ql (U) Negative [facility] - UrinalysisOrder ed By: Carmelita Cary on 04-18-2025 Protein Ql (U) Negative [facility] MCV (mean corpuscular volume ) determinationOrdered By: Manda Aguirre on 04-18-2025 MCV (RBC) [Entitic vol] 89.5 fL 81-99 [facility] Mean corpuscular hemoglobin (MCH) determinationOrdered By: Manda Aguirre on 04-18-2025 MCH (RBC) [Entitic mass] 30.6 pg 27.0-32.0 [facility] Mean corpuscular hemoglobin concentration (MCHC) determinationOrdered By: Manda Aguirre on 04-18-2025 MCHC (RBC) [Mass/Vol] 34.2 g/dL 32-36 [facility] Mean platelet volume determi nationOrdered By: Manda Aguirre on 04-18-2025 Platelet mean volume (Bld) [Entitic vol] 10.0 fL 6.2-12.0 [facility] Monocyte percentageOrdered B y: Manda Aguirre on 04-18-2025 Monocytes/100 WBC (Bld) 6.6 % 0-10 [facility] Neutrophil percentageOrdered By: Manda Aguirre on 04-18-2025 Neutrophils/100 WBC (Bld) 75.1 % High 47-70 [facility] No Panel InformationOrdered By: Manda Aguirre on 04-18-2025 HIV (1&2) Antibody Non-Reactive Nonreactive [facility] Comment on above: Non-ReactiveReactive Repeatedly reactive samples must be confirmed according to CDC recommended confirmatory algorithms. The subresults for either HIVAG or AHIV can be used as an aid in the selection of the confirmation algorithm for reactive samples.Send out specimens with Reactive results to [facility] for confirmation.Order the HIV antibody detection and differentiation: #[id number] Nucleated red blood cell per centageOrdered By: Manda Aguirer on 04-18-2025 Nucleated RBC/100 WBC (Bld) [Ratio] 0 % 0-5 [facility] Pit Furnace Operator Office Visit Reporton 04-18-2025 Pit Furnace Operator Office Visit Report [facility]'s [address], [address] [place] [address] OFFICE VISIT Date of Service: 04/18/25 MR#: [id number] Acct: [id number] Name: DEMARCUS ABAD Rep #: [id number] : 1990 Provider: Dr. Carmelita Rossi DO Age/Sex: 35/F [place] [facility] [place] Status: Signed Intake Vital Signs 01/25/25 13:59 04/02/25 18:35 04/18/25 10:56 04/18/25 10:59 Height 5 ft 2 in 5 ft 2 in 5 ft 2 in 5 ft 2 in Weight: 183 lb 9 oz BMI 33.5 BP 106/71 Intake Visit Reasons: 28wk ob/glucose Spouting Installer Required: No Is patient in pain?: No Allergies Penicillins Allergy (Unknown, Verified 04/18/25 10:56) Unknown Medications ???Medication ???Instructions ???Recorded ???Confirmed ???Type multivit-min no.71-iron fum 28 1 cap PO DAILY 11/12/24 04/18/25 H istory mg-folate no.1 1 mg-dha 300 mg capsule (PNV-[place]) methimazole 5 mg tablet 2.5 mg (1/2 x 5 mg) PO .every 01/0404/18/25 Rx other day #15 tabs Last Menstrual Period: 09/27/24 Zika: Zika virus screening: Negative : No PFSH PFSH Medical History Hot thyroid nodule Hx of varicose veins of lower extremity Depression Nodular goiter HPV (human papilloma virus) infection Thyroid disorder Pre-eclampsia Abnormal glucose Anemia Surgical History History of bunionectomy of right great toe [place] teeth extracted History of colposcopy Family History Mother Hypertension Father Diabetes Aunt Thyroid disorder Maternal- unknown type Social History adopted: No household members: spouse and children housing: house number of children: 2 current occupational status: unemployed current occupation: [employer] pets and animals: Yes (no litter box) [...] physical activity do you participate in: none [place]/orthodox: Protestant seatbelt use: always do you feel safe at home: Yes additional social history: [employer] History 4 Elective abortions Hx Para 2 Spontaneous abortions 1 Hx # Term Pregnancies Ectopic pregnancies Hx # Pregnancies 2 Multiple births # of living children 2 Past Pregnancies Del. Date Name GA/Weeks Outcome Route Bth Weight Infant Gen Labor Lgth Anesthesia Del Locatn Provider FOB Unknown 08/2024 6 spontaneous 04/30/08 Shlomo 36 live - 6# Male epidural [facility] Taye 08/08/21 Emalie 36 live - 6lbs 14oz Female epidural [facility] Va n[place] Velde Delivery Date: 04/30/08 Last Updated by: Manda Aguirre MEDICAL ASSISTANT SECRETARY, MEDICAL ASSISTANT SECRETARY-C Induced to preeclampsia, teen Delivery Date: 08/08/21 Last Updated by: Ashley Cortes IOL pre-e HPI 28wk ob/glucose Details: DEMARCUS ABAD is a 35 year old who presents for routine OB visit. OB Visit ROSE Calculator Estimated Delivery Date Method Current WG Current Estimate 07/04/25 LMP (Certain) 29w 0d Other Estimates 07/07/25 Ultrasound #1 28w 4d Expected Delivery Route/Plan Labor Preferences- CB/BF classes: [] labor support person: [] labor intervention preferences: [] pain management options preferred: [] cut cord/dad catch: [] : [] PP control planned: [] discussed possible routes of delivery and associated risks: [] special requests: [] Specific Issue/Plans Covid status: [] Flu vaccine: [] Tdap vaccine: [] Rhogam: [] LARC form signed: yes Problem list reviewed and updated with the most current plan of care details and appropriate orders placed. Relevant counseling for the gestational age provided. Continue routine care and follow up unless otherwise noted in visit notes/problem list details Initial Weight: 168 lb Date -???-???-???-???-??? -???-???-???-???-??? -???-???- EGA Weight BP Urine Prot -???-???-???-???-??? -???-???-???-???-??? -???-???- Glucose FHR FuHt Pres Dilation -???-???-???-???-??? -???-???-???-???-??? -???-???- Effaced St Visit Note 11/24/24 -???-???-???-???-??? -???-???-???-???-??? -???-???- 8w 2d 168 lb 8 oz (+8 oz) 108/74 -???-???-???-???-??? -???-???-???-???-??? -???-???- 162 -???-???-???-???-??? -???-???-???-???-??? -???-???- KW- CRL cons with dates. accepts NIPT. 12/27/24 -???-???-???-???-??? -???-???-???-???-??? -???-???- 13 (more content not included)... Normal [facility] Platelet countOrdered By: Kenneth Aguirre on 04-18-2025 Platelets (Bld) [#/Vol] 228 10*3/uL 150-450 [facility] RBC Auto (Bld) [#/Vol]Ordere d By: Manda Aguirre on 04-18-2025 RBC (Bld) [#/Vol] 4.09 10*6/uL Low 4.2-5.4 [facility] Syphilis Antibodieson 2024 Syphilis Abs Non-Reactive Normal Nonreactive [facility] Comment on above: Performed By: #### L 501.0900, M100.2200, L7000.1800 #### [facility] [address] [place], [place], [id number] T4 Free Directon 04-18-2025 T4 FREE DIRECT 0.70 ng/dL Low 0.76-1.46 [facility] Comment on above: Performed By: #### L 501.0900, M100.2200, L7000.1800 #### [facility] [address] [place], [address] T4 freeOrdered By: Denis Galdamez on 04-18-2025 Free T4 [Mass/Vol] 0.70 ng/dL Low 0.76-1.46 [facility] TSH DL <= 0.005 mIU/L QnOrde red By: Denis Galdamez on 04-18-2025 TSH Qn 0.426 uIU/mL 0.300-4.200 [facility] Thyroid Stim Hormone (TSH)on 04-18-2025 TSH 0.426 uIU/mL Normal 0.300-4.200 [facility] Comment on above: Performed By: #### L 501.0900, M100.2200, L7000.1800 #### [facility] [address] [place], [address] White blood cell (WBC) count Ordered By: Manda Aguirre on 04-18-2025 WBC (Bld) [#/Vol] 8.6 10*3/uL 4.4-11.0 [facility] OB Triage Physician Noteon 0 04-03-2025 OB Triage Physician Note [facility] Medical Records Department [address] [place] [address] OB Triage Physician Note 04/03/25 1535 MR#: [id number] Acct: [id number] Name: DEMARCUS ABAD Rep #: [id number] : 1990 35 From: William Ceballos MD PCP: Dr. Beatriz Escobar MD Status:[facility] Location: [facility] DEMARCUS ABAD, is a 35 F G4, P2 at 26 weeks 6 days gestation who presents to labor and delivery because she was at the grocery store and a shopping cart was jammed into her abdomen. It caused some discomfort so she came to labor and delivery. On presentation to labor delivery she was noted to have minimal pain. Maternal blood type is Rh+. Patient was placed on monitor and the monitor strip was reactive without showing any decelerations. After monitoring the patient for 33 minutes she was discharged to home with routine follow-up suggested. She was instructed to use Tylenol if she had severe pain or cramping and to return if this pain persisted or bleeding ensued. Maternal Data Information ROSE Calculator Estimated Delivery Date Method Current WG Current Estimate 07/04/25 LMP (Certain) 26w 6d Other Estimates 07/07/25 Ultrasound #1 26w 3d PFSH PFSH Medical History Hot thyroid nodule Hx of varicose veins of lower extremity Depression Nodular goiter HPV (human papilloma virus) infection Thyroid disorder Pre-eclampsia Abnormal glucose Anemia Home Medications ???Medication ???Instructions ???Recorded ???Last Taken ???Type multivit-min no.71-iron fum 28 1 cap PO DAILY 11/12/24 04/01/25 2 1:00 History mg-folate no.1 1 mg-dha 300 mg 1 cap capsule (PNV-[place]) methimazole 5 mg tablet 2.5 mg (1/2 x 5 mg) PO .every 01/0403/30/25 08:00 Rx other day #15 tabs 2.5 mg Allergy/AdvReac Type Severity Reaction Status Date / Time Penicillins Allergy Unknown Unknown Verified 04/02/25 18:30 Family History Mother Hypertension Father Diabetes Aunt Thyroid disorder Maternal- unknown type Surgical History History of bunionectomy of right great toe [place] teeth extracted History of colposcopy Social History adopted: No household members: spouse and children housing: house number of children: 2 current occupational status: unemployed current occupation: 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 Date Name GA/Weeks Outcome Route Bth Weight Gen Labor Lgth Anesthesia Del Locatn Provider FOB Unknown 08/2024 6 spontaneous 04/30/08 Shlomo 36 live - 6# Male epidural [facility] Taye 08/08/21 Emalie 36 live - 6lbs 14oz Female epidural [facility] Delivery Date: 04/30/08 Last Updated by: Manda Aguirre MEDICAL ASSISTANT SECRETARY, MEDICAL ASSISTANT SECRETARY-C Induced to preeclampsia, teen Delivery Date: 08/08/21 Last Updated by: Ashley FLORES pre-e Visit Details Expected Delivery Route/Plan Labor Preferences- CB/BF classes: [] labor support person: [] labor intervention preferences: [] pain management options preferred: [] cut cord/dad catch: [] : [] PP control planned: [] discussed possible routes of delivery and associated risks: [] special requests: [] Plans Covid status: [] Flu vaccine: [] Tdap vaccine: [] Rhogam: [] LARC form signed: yes Problem list reviewed and updated with the most current plan of care details and appropriate orders placed. Relevant counseling for the gestational age provided. Continue routine care and follow up unless otherwise noted in visit notes/problem list details OB Flowsheet Initial Weight: 168 lb Date -???-???-???-???-??? -???-???-???-???-??? -???-???- EGA Weight BP Urine Prot -???-???-???-???-??? -???-???-???-???-??? -???-???- Glucose FHR FuHt Pres Dilation -???-???-???-???-??? -???-???-???-???-??? -???-???- Effaced St Visit Note 11/24/24 (more content not included)... Normal [facility] - Chemistry and C hemistry - challengeOrdered By: Manda Aguirre on 03-22-2025 Glucose Ql (U) Negative [facility] - UrinalysisOrder ed By: Manda Aguirre on 03-22-2025 Protein Ql (U) Negative [facility] Pit Furnace Operator Office Visit Reporton 03-22-2025 Pit Furnace Operator Office Visit Report [facility]'s [address], [address] [place] [address] OFFICE VISIT Date of Service: 03/22/25 MR#: [id number] Acct: [id number] Name: DEMARCUS ABAD Rep #: [id number] : 1990 Provider: LUCILA arriola Age/Sex: 35/F [place] [facility] [place]: Signed Intake Vital Signs 01/25/25 13:59 02/21/25 11:01 03/22/25 10:32 03/22/25 10:36 Height 5 ft 2 in 5 ft 2 in 5 ft 2 in 5 ft 2 in Weight: 178 lb 1 oz BMI 32.5 BP 111/75 Intake Visit Reasons: 24wk ob Chief Complaint: 24 Week 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 Is patient in pain?: No Allergies Penicillins Allergy (Unknown, Verified 03/22/25 10:35) Unknown Medications ???Medication ???Instructions ???Recorded ???Confirmed ???Type ferrous sulfate 325 mg (65 mg 325 mg PO DAILY 09/05/23 03/22/25 History iron) tablet (Feosol) multivit-min no.71-iron fum 28 cap PO 11/12/24 03/22/25 History mg-folate no.1 1 mg-dha 300 mg capsule (PNV-[place]) methimazole 5 mg tablet 2.5 mg (1/2 x 5 mg) PO .every 01/0403/22/25 Rx other day #15 tabs Last Menstrual Period: 09/27/24 Zika: Zika virus screening: Negative : No PFSH PFSH Medical History Hot thyroid nodule Hx of varicose veins of lower extremity Depression Nodular goiter HPV (human papilloma virus) infection Thyroid disorder Pre-eclampsia Abnormal glucose Anemia Surgical History History of bunionectomy of right great toe [place] teeth extracted History of colposcopy Family History Mother Hypertension Father Diabetes Aunt Thyroid disorder Maternal- unknown type Social History adopted: No household members: spouse and children housing: house number of children: 2 current occupational status: unemployed current occupation: 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 Date Name GA/Weeks Outcome Route Bth Weight Gen Labor Lgth Anesthesia Del Locatn Provider FOB Unknown 08/2024 6 spontaneous 04/30/08 Shlomo 36 live - 6# Male epidural [facility] Taye 08/08/21 Emalie 36 live - 6lbs 14oz Female epidural [facility] [place] Delivery Date: 04/30/08 Last Updated by: Manda Aguirre MEDICAL ASSISTANT SECRETARY, MEDICAL ASSISTANT SECRETARY-C Induced to preeclampsia, teen Delivery Date: 08/08/21 Last Updated by: Ashley Cortes IOL pre-e HPI 24wk ob Details: DEMARCUS ABAD is a 35 year old who presents for routine OB visit. OB Visit ROSE Calculator Estimated Delivery Date Method Current WG Current Estimate 07/04/25 LMP (Certain) 25w 1d Other Estimates 07/07/25 Ultrasound #1 24w 5d Expected Delivery Route/Plan Labor Preferences- CB/BF classes: [] labor support person: [] labor intervention preferences: [] pain management options preferred: [] cut cord/dad catch: [] : [] PP control planned: [] discussed possible routes of delivery and associated risks: [] special requests: [] Specific Issue/Plans Covid status: [] Flu vaccine: [] Tdap vaccine: [] Rhogam: [] LARC form signed: yes Problem list reviewed and updated with the most current plan of care details and appropriate orders placed. Relevant counseling for the gestational age provided. Continue routine care and follow up unless otherwise noted in visit notes/problem list details Initial Weight: 168 lb Date -???-???-???-???-??? -???-???-???-???-??? -???-???- EGA Weight BP Urine Prot -???-???-???-???-??? -???-???-???-???-??? -???-???- Glucose FHR FuHt Pres Dilation -???-???-???-???-??? -???-???-???-???-??? -???-???- Effaced St Visit Note 11/24/24 -???-???-???-???-??? -???-???-???-???-??? -???-???- 8w 2d 168 lb 8 oz (+8 oz) 108/74 -???-???-???-???-??? -???-???-???-???-??? -???-???- 162 -???-???-???-???-??? -???-???-???-???-??? -???-???- KW- CRL (more content not included)... Normal [facility] Absolute lymphocyte countOrd ered By: Lyssa Aguila on 02-21-2025 Lymphocytes Auto (Unsp spec) [#/Vol] 1.56 10*3/uL 0.83-4.51 [facility] Absolute neutrophil countOrd ered By: Lyssa Aguila on 02-21-2025 Neutrophils (Bld) [#/Vol] 7.8 10*3/uL High 2.0-7.7 [facility] Automated lymphocyte count a s percentage of total leukocytesOrdered By: Lyssa Aguila on 02-21-2025 Lymphocytes/100 WBC Auto (Unsp spec) 15.5 % Low 19-41 [facility] Basophil percentageOrdered B y: Lyssa Aguila on 02-21-2025 Basophils/100 WBC (Bld) 0.3 % 0-1 [facility] CBC W/Diff, Automatedon 02-04 Absolute Lymph 1.56 X10 3/uL Normal 0.83-4.51 [facility] Comment on above: Performed By: #### L 501.0900, M100.2200, L7000.1800 #### [facility] [address] [place], [address] Absolute Neut 7.8 X10 3/uL High 2.0-7.7 [facility] Comment on above: Performed By: #### L 501.0900, M100.2200, [id number] #### [facility] [address] [place], [address] Basophils/100 WBC (Bld) 0.3 % Normal 0-1 [facility] Comment on above: Performed By: #### L 501.0900, M100.2200, [id number] #### [facility] [address] [place], [address] Eosinophils/100 WBC (Bld) 0.7 % Normal 0-5 [facility] Comment on above: Performed By: #### L 501.0900, M100.2200, [id number] #### [facility] [address] [place], [address] Erythrocyte distribution width (RBC) [Ratio] 13.0 % Normal 11.6-14.6 [facility] Comment on above: Performed By: #### L 501.0900, M100.2200, L7000.1800 #### [facility] [address] [place], [address] Hematocrit (Bld) [Volume fraction] 39.3 % Normal 37-47 [facility] Comment on above: Performed By: #### L 501.0900, M100.2200, L7000.1800 #### [facility] [address] [place], [address] Hemoglobin (Bld) [Mass/Vol] 13.4 g/dL Normal 12.0-15.0 [facility] Comment on above: Performed By: #### L 501.0900, M100.2200, L7000.1800 #### [facility] [address] [place], [address] IG% 0.500 Normal 0.0-0.9 [facility] Comment on above: Result Comment: IG% - Immature Granulocytes (promyelocytes, myelocytes and metamyelocytes) > 1% indicates that a LEFT SHIFT is Present. Performed By: #### L 501.0900, M100.2200, L7000.1800 #### [facility] [address] [place], [address] Lymphocytes/100 WBC (Bld) 15.5 % Low 19-41 [facility] Comment on above: Performed By: #### L 501.0900, M100.2200, [id number] #### [facility] [address] [place], [address] MCH (RBC) [Entitic mass] 30.1 pg Normal 27.0-32.0 [facility] Comment on above: Performed By: #### L 501.0900, M100.2200, [id number] #### [facility] [address] [place], [address] MCHC (RBC) [Mass/Vol] 34.1 g/dL Normal 32-36 [facility] Comment on above: Performed By: #### L 501.0900, M100.2200, [id number] #### [facility] [address] [place], [address] MCV (RBC) [Entitic vol] 88.3 fL Normal 81-99 [facility] Comment on above: Performed By: #### L 501.0900, M100.2200, [id number] #### [facility] [address] [place], [address] Monocytes/100 WBC (Bld) 5.7 % Normal 0-10 [facility] Comment on above: Performed By: #### L 501.0900, M100.2200, L7000.1800 #### [facility] [address] [place], [address] Neutrophils/100 WBC (Bld) 77.3 % High 47-70 [facility] Comment on above: Performed By: #### L 501.0900, M100.2200, L7000.1800 #### [facility] [address] [place], [address] Nucleated RBC (Bld) [#/Vol] 0 10*3/uL Normal 0-5 [facility] Comment on above: Performed By: #### L 501.0900, M100.2200, L7000.1800 #### [facility] [address] [place], [address] Platelet mean volume (Bld) [Entitic vol] 10.1 fL Normal 6.2-12.0 [facility] Comment on above: Performed By: #### L 501.0900, M100.2200, L7000.1800 #### [facility] [address] [place], [address] Platelets (Bld) [#/Vol] 238 10*3/uL Normal 150-450 [facility] Comment on above: Performed By: #### L 501.0900, M100.2200, [id number] #### [facility] [address] [place], [address] RBC (Bld) [#/Vol] 4.45 10*6/uL Normal 4.2-5.4 [facility] Comment on above: Performed By: #### L 501.0900, M100.2200, [id number] #### [facility] [address] [place], [address] RDW SD 41.8 fl Normal 35.1-43.9 [facility] Comment on above: Performed By: #### L 501.0900, M100.2200, [id number] #### [facility] [address] [place], [address] WBC (Bld) [#/Vol] 10.1 10*3/uL Normal 4.4-11.0 [facility] Comment on above: Performed By: #### L 501.0900, M100.2200, [id number] #### [facility] [address] [place], [address] Eosinophil percentageOrdered By: Lyssa Aguila on 02-21-2025 Eosinophils/100 WBC (Bld) 0.7 % 0-5 [facility] Erythrocyte distribution wid th ratioOrdered By: Lyssa Aguila on 02-21-2025 Erythrocyte distribution width (RBC) [Ratio] 13.0 % 11.6-14.6 [facility] Erythrocyte distribution wid th standard deviationOrdered By: Lyssa Aguila on 02-21-2025 Erythrocyte distribution width (RBC) [Ratio] 41.8 fl 35.1-43.9 [facility] Free T3on 02-21-2025 Free T3 [Mass/Vol] 2.8 pg/mL Normal 2.18-3.98 [facility] Comment on above: Performed By: #### L 501.0900, M100.2200, L7000.1800 #### [facility] [address] [place], [address] Free E9Fnrhdve By: Denis Galdamez on 02-21-2025 Free T3 [Mass/Vol] 2.8 pg/mL 2.18-3.98 [facility] Hematocrit Auto (Bld) [Volum e fraction]Ordered By: Lyssa Aguila on 02-21-2025 Hematocrit (Bld) [Volume fraction] 39.3 % 37-47 [facility] Hemoglobin measurementOrdere d By: Lyssa Aguila on 02-21-2025 Hemoglobin (Bld) [Mass/Vol] 13.4 g/dL 12.0-15.0 [facility] Immature granulocytes/100 WB C Auto (Bld)Ordered By: Lyssa Aguila on 02-21-2025 Immature granulocytes/100 WBC (Bld) 0.500 % 0.0-0.9 [facility] Comment on above: IG% - Immature Granu locytes (promyelocytes, myelocytes and metamyelocytes) > 1% indicates that a LEFT SHIFT is Present. Laboratory - Chemistry and C hemistry - challengeOrdered By: Lyssa Aguila on 02-21-2025 Glucose Ql (U) Negative [facility] - UrinalysisOrder ed By: Lyssa Aguila on 02-21-2025 Protein Ql (U) Negative [facility] MCV (mean corpuscular volume ) determinationOrdered By: Lyssa Aguila on 02-21-2025 MCV (RBC) [Entitic vol] 88.3 fL 81-99 [facility] Mean corpuscular hemoglobin (MCH) determinationOrdered By: Lyssa Aguila on 02-21-2025 MCH (RBC) [Entitic mass] 30.1 pg 27.0-32.0 [facility] Mean corpuscular hemoglobin concentration (MCHC) determinationOrdered By: Lyssa Aguila on 02-21-2025 MCHC (RBC) [Mass/Vol] 34.1 g/dL 32-36 [facility] Mean platelet volume determi nationOrdered By: Lyssa Aguila on 02-21-2025 Platelet mean volume (Bld) [Entitic vol] 10.1 fL 6.2-12.0 [facility] Monocyte percentageOrdered B y: Lyssa Aguila on 02-21-2025 Monocytes/100 WBC (Bld) 5.7 % 0-10 [facility] Neutrophil percentageOrdered By: Lyssa Aguila on 02-21-2025 Neutrophils/100 WBC (Bld) 77.3 % High 47-70 [facility] Nucleated red blood cell per centageOrdered By: Lyssa Aguila on 02-21-2025 Nucleated RBC/100 WBC (Bld) [Ratio] 0 % 0-5 [facility] Pit Furnace Operator Office Visit Reporton 02-21-2025 Pit Furnace Operator Office Visit Report [facility]'s [address], [address] [place] [address] OFFICE VISIT Date of Service: 02/21/25 MR#: [id number] Acct: [id number] Name: DEMARCUS ABAD Rep #: [id number] : 1990 Provider: SULLY Boudreaux ams Age/Sex: 35/F [place] [facility] [place]: Signed Intake Vital Signs 12/27/24 09:51 01/25/25 13:59 02/21/25 11:01 Height 5 ft 2 in 5 ft 2 in 5 ft 2 in Weight: 167 lb 2 oz 170 lb 8 oz BMI 30.5 31.1 BP 111/73 103/68 Intake Visit Reasons: 20 wk ob Chief Complaint: 20wk 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 Is patient in pain?: No Allergies Penicillins Allergy (Unknown, Verified 02/21/25 10:59) Unknown Medications ???Medication ???Instructions ???Recorded ???Confirmed ???Type ferrous sulfate 325 mg (65 mg 325 mg PO DAILY 09/05/23 02/21/25 History iron) tablet (Feosol) multivit-min no.71-iron fum 28 cap PO 11/12/24 02/21/25 History mg-folate no.1 1 mg-dha 300 mg capsule (PNV-[place]) methimazole 5 mg tablet 2.5 mg (1/2 x 5 mg) PO .every 01/0402/21/25 Rx other day #15 tabs Last Menstrual Period: 09/27/24 : No PFSH PFSH Medical History Hot thyroid nodule Hx of varicose veins of lower extremity Depression Nodular goiter HPV (human papilloma virus) infection Thyroid disorder Pre-eclampsia Abnormal glucose Anemia Surgical History History of bunionectomy of right great toe [place] teeth extracted History of colposcopy Family History Mother Hypertension Father Diabetes Aunt Thyroid disorder Maternal- unknown type Social History adopted: No household members: spouse and children housing: house number of children: 2 current occupational status: unemployed current occupation: 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 Date Name GA/Weeks Outcome Route Bth Weight Infant Gen Labor Lgth Anesthesia Del Locatn Provider FOB Unknown 08/2024 6 spontaneous 04/30/08 Shlomo 36 live - 6# Male epidural [facility] Taye 08/08/21 Emalie 36 live - 6lbs 14oz Female epidural [facility] [place] Delivery Date: 04/30/08 Last Updated by: Manda Aguirre MEDICAL ASSISTANT SECRETARY, MEDICAL ASSISTANT SECRETARY-C Induced to preeclampsia, teen Delivery Date: 08/08/21 Last Updated by: Ashley Cortes IOL pre-e HPI 20 wk ob Details: DEMARCUS ABAD is a 35 year old who presents for routine OB visit. OB Visit ROSE Calculator Estimated Delivery Date Method Current WG Current Estimate 07/04/25 LMP (Certain) 21w 0d Other Estimates 07/07/25 Ultrasound #1 20w 4d Expected Delivery Route/Plan Labor Preferences- CB/BF classes: [...] list details Initial Weight: 168 lb Date -???-???-???-???-??? -???-???-???-???-??? -???-???- EGA Weight BP Urine Prot -???-???-???-???-??? -???-???-???-???-??? -???-???- Glucose FHR FuHt Pres Dilation -???-???-???-???-??? -???-???-???-???-??? -???-???- Effaced St Visit Note 11/24/24 -???-???-???-???-??? -???-???-???-???-??? -???-???- 8w 2d 168 lb 8 oz (+8 oz) 108/74 -???-???-???-???-??? -???-???-???-???-??? -???-???- 162 -???-???-???-???-??? -???-???-???-???-??? -???-???- KW- CRL cons with dates. accepts NIPT. 12/27/24 -???-???-???-???-??? - (more content not included)... Normal [facility] Platelet countOrdered By: Miko Aguila on 02-21-2025 Platelets (Bld) [#/Vol] 238 10*3/uL 150-450 [facility] RBC Auto (Bld) [#/Vol]Ordere d By: Lyssa Aguila on 02-21-2025 RBC (Bld) [#/Vol] 4.45 10*6/uL 4.2-5.4 [facility] T4 Free Directon 02-21-2025 T4 FREE DIRECT 0.80 ng/dL Normal 0.76-1.46 [facility] Comment on above: Performed By: #### L 501.0900, M100.2200, L7000.1800 #### [facility] [address] [place], [place], [address] T4 freeOrdered By: Denis Galdamez on 02-21-2025 Free T4 [Mass/Vol] 0.80 ng/dL 0.76-1.46 [facility] TSH DL <= 0.005 mIU/L QnOrde red By: Denis Galdamez on 02-21-2025 TSH Qn 0.193 uIU/mL Low 0.300-4.200 [facility] Thyroid Stim Hormone (TSH)on 02-21-2025 TSH 0.193 uIU/mL Low 0.300-4.200 [facility] Comment on above: Performed By: #### L 501.0900, M100.2200, L7000.1800 #### [facility] [address] [place], [address] White blood cell (WBC) count Ordered By: Lyssa Aguila on 02-21-2025 WBC (Bld) [#/Vol] 10.1 10*3/uL 4.4-11.0 [facility] - Chemistry and C hemistry - challengeOrdered By: Gaby Trimble on 01-25-2025 Glucose Ql (U) Negative [facility] - UrinalysisOrder ed By: Gaby Trimble on 01-25-2025 Protein Ql (U) Negative [facility] Pit Furnace Operator Office Visit Reporton 01-25-2025 Pit Furnace Operator Office Visit Report [facility] [address] [place] [address], [address] [place] [address] OFFICE VISIT Date of Service: 01/25/25 MR#: [id number] Acct: [id number] Name: DEMARCUS ABAD Rep #: [id number] : 1990 Provider: Dr. Gaby rondon MD Age/Sex: 34/F [place] [facility] [place] Status: Signed Intake Vital Signs 11/24/24 12:59 01/10/25 13:57 01/25/25 13:59 Height 5 ft 2 in 5 ft 2 in 5 ft 2 in Weight: 167 lb 2 oz BMI 30.5 BP 111/73 Intake Visit Reasons: 16 wk ob Spouting Installer Required: No Is patient in pain?: Yes (severe round ligament pain this ) Allergies Penicillins Allergy (Unknown, Verified 01/25/25 14:00) Unknown Medications ???Medication ???Instructions ???Recorded ???Confirmed ???Type ferrous sulfate 325 mg (65 mg 325 mg PO DAILY 09/05/23 01/25/25 History iron) tablet (Feosol) multivit-min no.71-iron fum 28 cap PO 11/12/24 01/25/25 History mg-folate no.1 1 mg-dha 300 mg capsule (PNV-[place]) methimazole 5 mg tablet 2.5 mg (1/2 x 5 mg) PO .every 01/0401/25/25 Rx other day #15 tabs Last Menstrual Period: 09/27/24 Zika: Zika virus screening: Negative : No PFSH PFSH Medical History (Updated 01/25/25 @ 14:[address] Gaby Trimlbe MD) Hot thyroid nodule Hx of varicose veins of lower extremity Depression Nodular goiter HPV (human papilloma virus) infection Thyroid disorder Pre-eclampsia Abnormal glucose Anemia Surgical History (Updated 01/25/25 @ 14:[address] Gaby Trimble MD) History of bunionectomy of right great toe [place] teeth extracted History of colposcopy Family History Mother Hypertension Father Diabetes Aunt Thyroid disorder Maternal- unknown type Social History adopted: No household members: spouse and children housing: house number of children: 2 current occupational status: unemployed current occupation: 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 Date Name GA/Weeks Outcome Route Bth Weight Gen Labor Lgth Anesthesia Del Locatn Provider FOB Unknown 08/2024 6 spontaneous 04/30/08 Shlomo 36 live - 6# Male epidural [facility] Taye 08/08/21 Emalie 36 live - 6lbs 14oz Female epidural [facility] [place] Delivery Date: 04/30/08 Last Updated by: Manda Aguirre MEDICAL ASSISTANT SECRETARY, MEDICAL ASSISTANT SECRETARY-C Induced to preeclampsia, teen Delivery Date: 08/08/21 Last Updated by: Ashley Cortes IOL pre-e HPI 16 wk ob Details: DEMARCUS ABAD is a 34 year old who presents for routine OB visit. OB Visit ROSE Calculator Estimated Delivery Date Method Current WG Current Estimate 07/04/25 LMP (Certain) 17w 1d Other Estimates 07/07/25 Ultrasound #1 16w 5d Expected Delivery Route/Plan Labor Preferences- CB/BF classes: [...] list details Initial Weight: 168 lb Date -???-???-???-???-??? -???-???-???-???-??? -???-???- EGA Weight BP Urine Prot -???-???-???-???-??? -???-???-???-???-??? -???-???- Glucose FHR FuHt Pres Dilation -???-???-???-???-??? -???-???-???-???-??? -???-???- Effaced St Visit Note 11/24/24 -???-???-???-???-??? -???-???-???-???-??? -???-???- 8w 2d 168 lb 8 oz (+8 oz) 108/74 -???-???-???-???-??? -???-???-???-???-??? -???-???- 162 -???-???-???-???-??? -???-???-???-???-??? -???-???- KW (more content not included)... Normal [facility] Free T3on 01-17-2025 Free T3 [Mass/Vol] 3.3 pg/mL Normal 2.18-3.98 [facility] Comment on above: Performed By: #### L 501.9543, L501.09319, L506.0400 #### [facility] [address] [place], [address] Free P9Shemyff By: Denis Galdamez on 01-17-2025 Free T3 [Mass/Vol] 3.3 pg/mL 2.18-3.98 [facility] T4 Free Directon 01-17-2025 T4 FREE DIRECT 1.00 ng/dL Normal 0.76-1.46 [facility] Comment on above: Performed By: #### L 501.9520, L501.19775, L506.0400 #### [facility] [address] [place], [address] T4 freeOrdered By: Denis Galdamez on 01-17-2025 Free T4 [Mass/Vol] 1.00 ng/dL 0.76-1.46 [facility] TSH DL <= 0.005 mIU/L QnOrde red By: Denis Galdamez on 01-17-2025 TSH Qn 0.022 uIU/mL Low 0.300-4.200 [facility] Thyroid Stim Hormone (TSH)on 01-17-2025 TSH 0.022 uIU/mL Low 0.300-4.200 [facility] Comment on above: Performed By: #### L 501.9520, L501.41111, L506.0400 #### [facility] [address] [place], [address] Pit Furnace Operator Office Visit Reporton 01-10-2025 Pit Furnace Operator Office Visit Report [facility]'s [address], [address] [place] [address] OFFICE VISIT Date of Service: 01/10/25 MR#: [id number] Acct: [id number] Name: DEMARCUS ABAD Rep #: [id number] : 1990 Provider: LUCILA arriola Age/Sex: 34/F [place] [facility] [place]: Signed Intake Vital Signs 12/30/24 13:27 01/10/25 13:54 01/10/25 13:57 Height 5 ft 2 in 5 ft 2 in 5 ft 2 in Weight: 167 lb 2 oz 165 lb 8 oz BMI 30.5 30.2 BP 107/72 114/68 Blood Pressure Location Rt brachial Position Sitting Pulse 71 Pulse Source Monitor Pulse Oximetry (%) 97 Oxygen Delivery Method room air Intake Visit Reasons: heart check Chief Complaint: 15 Week heart check Spouting Installer Required: No Is patient in pain?: No Allergies Penicillins Allergy (Unknown, Verified 01/10/25 13:53) Unknown Medications ???Medication ???Instructions ???Recorded ???Confirmed ???Type ferrous sulfate 325 mg (65 mg 325 mg PO DAILY 09/05/23 01/10/25 History iron) tablet (Feosol) multivit-min no.71-iron fum 28 cap PO 11/12/24 01/10/25 History mg-folate no.1 1 mg-dha 300 mg capsule (PNV-Lowell) Last Menstrual Period: 09/27/24 Zika: Zika virus screening: Negative : No PFSH PFSH Medical History Hot thyroid nodule Hx of varicose veins of lower extremity Depression Nodular goiter HPV (human papilloma virus) infection Thyroid disorder Pre-eclampsia Abnormal glucose Anemia Surgical History History of bunionectomy of right great toe [place] teeth extracted History of colposcopy Family History Mother Hypertension Father Diabetes Aunt Thyroid disorder Maternal- unknown type Social History adopted: No household members: spouse and children housing: house number of children: 2 current occupational status: unemployed current occupation: 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 Date Name GA/Weeks Outcome Route Bth Weight Gen Labor Lgth Anesthesia Del Locatn Provider FOB Unknown 08/2024 6 spontaneous 04/30/08 Shlomo 36 live - 6# Male epidural [facility] Taye 08/08/21 Emalie 36 live - 6lbs 14oz Female epidural [facility] Va nde Velde Delivery Date: 04/30/08 Last Updated by: Manda Aguirre MEDICAL ASSISTANT SECRETARY, MEDICAL ASSISTANT SECRETARY-C Induced to preeclampsia, teen Delivery Date: 08/08/21 Last Updated by: Ashley Cortes IOL pre-e HPI heart check Details: DEMARCUS ABAD is a 34 year old who presents for routine OB visit. OB Visit ROSE Calculator Estimated Delivery Date Method Current WG Current Estimate 07/04/25 LMP (Certain) 15w 0d Other Estimates 07/07/25 Ultrasound #1 14w 4d Expected Delivery Route/Plan Labor Preferences- CB/BF classes: [...] list details Initial Weight: 168 lb Date -???-???-???-???-??? -???-???-???-???-??? -???-???- EGA Weight BP Urine Prot -???-???-???-???-??? -???-???-???-???-??? -???-???- Glucose FHR FuHt Pres Dilation -???-???-???-???-??? -???-???-???-???-??? -???-???- Effaced St Visit Note 11/24/24 -???-???-???-???-??? -???-???-???-???-??? -???-???- 8w 2d 168 lb 8 oz (+8 oz) 108/74 -???-???-???-???-??? -???-???-?? (more content not included)... Normal [facility] Endocrinology Visit Reporton 12-30-2024 Endocrinology Visit Report [facility] [address] [place] [address] OFFICE VISIT Date of Service: 12/30/24 MR#: [id number] Acct: [id number] Name: DEMARCUS ABAD Rep #: [id number] : 1990 Provider: Ashly Yusuf Age/Sex: 34/F [place] [facility] [place]: Signed Intake Vital Signs 12/27/24 09:51 12/30/24 13:27 Height 5 ft 2 in 5 ft 2 in Weight: 167 lb 2 oz BMI 30.5 BP 107/72 Blood Pressure Location Rt brachial Position Sitting Pulse 71 Pulse Source Monitor Pulse Oximetry (%) 97 Oxygen Delivery Method room air Intake Visit Reasons: 1 Y FU Chief Complaint: Thyroid Is patient in pain?: No Allergies Penicillins Allergy (Unknown, Verified 12/30/24 13:29) Unknown Medications ???Medication ???Instructions ???Recorded ???Confirmed ???Type ferrous sulfate 325 mg (65 mg 325 mg PO DAILY 09/05/23 12/30/24 History iron) tablet (Feosol) multivit-min no.71-iron fum 28 cap PO 11/12/24 12/30/24 History mg-folate no.1 1 mg-dha 300 mg capsule (PNV-Lowell) Patient : Yes (13 weeks) [facility] Medical History (Updated 01/03/25 @ 10:[address] Denis Galdamez MD) Hot thyroid nodule Hx of varicose veins of lower extremity Depression Nodular goiter HPV (human papilloma virus) infection Thyroid disorder Pre-eclampsia Abnormal glucose Anemia Surgical History History of bunionectomy of right great toe [place] teeth extracted History of colposcopy Family History Mother Hypertension Father Diabetes Aunt Thyroid disorder Maternal- unknown type Social History adopted: No household members: spouse and children housing: house number of children: 2 current occupational status: unemployed current occupation: [employer] pets and animals: Yes (no litter box) [...] physical activity do you participate in: none [place]/orthodox: Protestant seatbelt use: always do you feel safe at home: Yes additional social history: [employer]- [employer] [facility] Female Reproductive History Menstrual Ab spontaneous: 1 HPI HPI Chief Complaint: Thyroid Details: DEMARCUS ABAD, is a 34 F who presents to the office today for follow up. From September,: She has a hot nodule in the right lobe. Her TSH has been below normal in the past. TSH in March, was normal. Since then, she is feeling pressure in the right side of her neck. She feels her throat closing and she makes a funny sound when that happens. Not worse upon lying down at night, no snoring that she is aware of. She feels a bit worried about the situation and that is making her anxious. She is currently about 13 weeks . She did not pursue surgical evaluation after her last appointment. She is not complaining of compression symptoms at this time. She has no symptoms of hyperthyroidism. Recent labs December 27 TSH 0.026 No T3 or T4 She is feeling well. I explained the homology of hCG and TSH. ROS Const Constitutional: No fatigue, weight change or change in appetite Eyes Eyes: No change in vision ENT ENT: No dizziness/vertigo or difficulty swallowing Cardio Cardiology: No chest pain at rest, chest pain with exertion, shortness of breath or palpitations Musc Musculoskeletal: No abnormal gait, joint pain, numbness or tingling Neuro Neurology: No abnormal gait, memory loss, numbness or tingling Psych Psychiatric: No change in appetite, No memory loss and No Thoughts of harming yourself/Others Resp Respiratory: No cough, chest congestion or shortness of breath Gastro GI: No abdominal pain, constipation, diarrhea or difficulty swallowing Genitourinary-Female : No burning urination Skin Skin: No itchy eyes or wounds Endo Endocrine: No fatigue or weight change Aller/Imm Allergy/Immunologic: No itchy eyes Exam Const General: cooperative, healthy appearing, comfortable, no acute distress, well developed and not cushingoid Nutritional Appearance: well nourished Orientation: alert, awake and oriented x3 Other: Non-toxic HENMT Head: normal to inspection Ears: hearing grossly normal bilaterally Nose: external nose normal Mouth: oral mucosae normal Eyes General: appearance normal, both eyes and all related structures Alignment and Position: alignment normal Periorbital: (more content not included)... Normal [facility] Urine Cultureon 12-28-2024 URC Culture exhibits no growth. Normal [facility] Comment on above: Performed By: #### L 501.0900, M100.2200, L7000.1800 #### [facility] [address] [place], [place], [id number] Absolute lymphocyte countOrd ered By: Lyssa Aguila on 12-27-2024 Lymphocytes Auto (Unsp spec) [#/Vol] 1.50 10*3/uL 0.83-4.51 [facility] Absolute neutrophil countOrd ered By: Lyssa Aguila on 12-27-2024 Neutrophils (Bld) [#/Vol] 5.7 10*3/uL 2.0-7.7 [facility] Anion gap in Serum or Plasma Ordered By: Lyssa Aguila on 12-27-2024 Anion gap [Moles/Vol] 12 mmol/L 5-15 [facility] Automated lymphocyte count a s percentage of total leukocytesOrdered By: Lyssa Aguila on 12-27-2024 Lymphocytes/100 WBC Auto (Unsp spec) 19.2 % 19-41 [facility] BUN/creatinine ratioOrdered By: Lyssa Aguila on 06-23-2025 Urea nitrogen/Creatinine [Mass ratio] 8.3 mg/mg Low 10-20 [facility] Comment on above: Previous reported re sult: 8.0 RATIOEdited by: AUTOINS on 12/27/24:1342 AMENDED REPORT 12/27/24 1342 BUN/CRE previously reported as: 8.0 L RATIO Basophil percentageOrdered B y: Lyssa Aguila on 12-27-2024 Basophils/100 WBC (Bld) 0.4 % 0-1 [facility] Bilirubin, totalOrdered By: Lyssa Aguila on 12-27-2024 Bilirubin [Mass/Vol] 0.27 mg/dL 0.00-1.30 [facility] Comment on above: Previous reported re sult: 0.26 mg/dLEdited by: AUTOINDevi on 12/27/24:1342 AMENDED REPORT 12/27/241341 T BILI previously reported as: 0.26 mg/dL CBC W/Diff, Automatedon 12-06 Absolute Lymph 1.50 X10 3/uL Normal 0.83-4.51 [facility] Comment on above: Performed By: #### L 500.4050, L100.0100, L501.9985, L3890.6102, L3890.6006, L509.4006, L3890.6301, L501.9520, BTS, L509.8002, L900.0098 #### [facility] [address] [place], [address] Absolute Neut 5.7 X10 3/uL Normal 2.0-7.7 [facility] Comment on above: Performed By: #### L 500.4050, L100.0100, L501.9985, L3890.6102, L3890.6006, L509.4006, L3890.6301, L501.9520, BTS, L509.8002, L900.0098 #### [facility] [address] [place], [address] Basophils/100 WBC (Bld) 0.4 % Normal 0-1 [facility] Comment on above: Performed By: #### L 500.4050, L100.0100, L501.9985, L3890.6102, L3890.6006, L509.4006, L3890.6301, L501.9520, BTS, L509.8002, L900.0098 #### [facility] [address] [place], [address] Eosinophils/100 WBC (Bld) 0.9 % Normal 0-5 [facility] Comment on above: Performed By: #### L 500.4050, L100.0100, L501.9985, L3890.6102, L3890.6006, L509.4006, L3890.6301, L501.9520, BTS, L509.8002, L900.0098 #### [facility] [address] [place], [address] Erythrocyte distribution width (RBC) [Ratio] 12.5 % Normal 11.6-14.6 [facility] Comment on above: Performed By: #### L 500.4050, L100.0100, L501.9985, L3890.6102, L3890.6006, L509.4006, L3890.6301, L501.9520, BTS, L509.8002, L900.0098 #### [facility] [address] [place], [address] Hematocrit (Bld) [Volume fraction] 41.4 % Normal 37-47 [facility] Comment on above: Performed By: #### L 500.4050, L100.0100, L501.9985, L3890.6102, L3890.6006, L509.4006, L3890.6301, L501.9520, BTS, L509.8002, L900.0098 #### [facility] [address] [place], [address] Hemoglobin (Bld) [Mass/Vol] 13.9 g/dL Normal 12.0-15.0 [facility] Comment on above: Performed By: #### L 500.4050, L100.0100, L501.9985, L3890.6102, L3890.6006, L509.4006, L3890.6301, L501.9520, BTS, L509.8002, L900.0098 #### [facility] [address] [place], [address] IG% 0.500 Normal 0.0-0.9 [facility] Comment on above: Result Comment: IG% - Immature Granulocytes (promyelocytes, myelocytes and metamyelocytes) > 1% indicates that a LEFT SHIFT is Present. Performed By: #### L 500.4050, L100.0100, L501.9985, L3890.6102, L3890.6006, L509.4006, L3890.6301, L501.9520, BTS, L509.8002, L900.0098 #### [facility] [address] [place], [address] Lymphocytes/100 WBC (Bld) 19.2 % Normal 19-41 [facility] Comment on above: Performed By: #### L 500.4050, L100.0100, L501.9985, L3890.6102, L3890.6006, L509.4006, L3890.6301, L501.9520, BTS, L509.8002, L900.0098 #### [facility] [address] [place], [address] MCH (RBC) [Entitic mass] 29.3 pg Normal 27.0-32.0 [facility] Comment on above: Performed By: #### L 500.4050, L100.0100, L501.9985, L3890.6102, L3890.6006, L509.4006, L3890.6301, L501.9520, BTS, L509.8002, L900.0098 #### [facility] [address] [place], [address] MCHC (RBC) [Mass/Vol] 33.6 g/dL Normal 32-36 [facility] Comment on above: Performed By: #### L 500.4050, L100.0100, L501.9985, L3890.6102, L3890.6006, L509.4006, L3890.6301, L501.9520, BTS, L509.8002, L900.0098 #### [facility] [address] [place], [address] MCV (RBC) [Entitic vol] 87.3 fL Normal 81-99 [facility] Comment on above: Performed By: #### L 500.4050, L100.0100, L501.9985, L3890.6102, L3890.6006, L509.4006, L3890.6301, L501.9520, BTS, L509.8002, L900.0098 #### [facility] [address] [place], [address] Monocytes/100 WBC (Bld) 6.1 % Normal 0-10 [facility] Comment on above: Performed By: #### L 500.4050, L100.0100, L501.9985, L3890.6102, L3890.6006, L509.4006, L3890.6301, L501.9520, BTS, L509.8002, L900.0098 #### [facility] [address] [place], [address] Neutrophils/100 WBC (Bld) 72.9 % High 47-70 [facility] Comment on above: Performed By: #### L 500.4050, L100.0100, L501.9985, L3890.6102, L3890.6006, L509.4006, L3890.6301, L501.9520, BTS, L509.8002, L900.0098 #### [facility] [address] [place], [address] Nucleated RBC (Bld) [#/Vol] 0 10*3/uL Normal 0-5 [facility] Comment on above: Performed By: #### L 500.4050, L100.0100, L501.9985, L3890.6102, L3890.6006, L509.4006, L3890.6301, L501.9520, BTS, L509.8002, L900.0098 #### [facility] [address] [place], [address] Platelet mean volume (Bld) [Entitic vol] 10.2 fL Normal 6.2-12.0 [facility] Comment on above: Performed By: #### L 500.4050, L100.0100, L501.9985, L3890.6102, L3890.6006, L509.4006, L3890.6301, L501.9520, BTS, L509.8002, L900.0098 #### [facility] [address] [facility] [place], [address] Platelets (Bld) [#/Vol] 236 10*3/uL Normal 150-450 [facility] Comment on above: Performed By: #### L 500.4050, L100.0100, L501.9985, L3890.6102, L3890.6006, L509.4006, L3890.6301, L501.9520, BTS, L509.8002, L900.0098 #### [facility] [address] [place], [address] RBC (Bld) [#/Vol] 4.74 10*6/uL Normal 4.2-5.4 [facility] Comment on above: Performed By: #### L 500.4050, L100.0100, L501.9985, L3890.6102, L3890.6006, L509.4006, L3890.6301, L501.9520, BTS, L509.8002, L900.0098 #### [facility] [address] [place], [address] RDW SD 40.3 fl Normal 35.1-43.9 [facility] Comment on above: Performed By: #### L 500.4050, L100.0100, L501.9985, L3890.6102, L3890.6006, L509.4006, L3890.6301, L501.9520, BTS, L509.8002, L900.0098 #### [facility] [address] [place], [address] WBC (Bld) [#/Vol] 7.8 10*3/uL Normal 4.4-11.0 [facility] Comment on above: Performed By: #### L 500.4050, L100.0100, L501.9985, L3890.6102, L3890.6006, L509.4006, L3890.6301, L501.9520, BTS, L509.8002, L900.0098 #### [facility] [address] [place], [address] Carbon dioxide, total [Moles /volume] in Central venous bloodOrdered By: Lyssa Aguila on 12-27-2024 CO2 [Moles/Vol] 20.8 mmol/L Low 21.0-32.0 [facility] Comment on above: Previous reported re sult: 22.0 mmol/LEdited by: ALEXANDER on 12/27/24:1342 AMENDED REPORT 12/27/24 1342 CO2 previously reported as: 22.0 mmol/L Chloride assayOrdered By: Miko Aguila on 12-27-2024 Chloride [Moles/Vol] 102 mmol/L 98-108 [facility] Comment on above: Previous reported re sult: 101 mmol/LEdited by: AUTOINS on 12/27/24:1342 AMENDED REPORT 12/27/241341 CL previously reported as: 101 mmol/L Comprehensive Metabolic Prof ilon 12-27-2024 Albumin [Mass/Vol] 4.1 g/dL Normal 3.5-5.0 [facility] Comment on above: Result Comment: AMENDED REPORT 12/27/241341 ALB previously reported as: 4.1 g/dL Performed By: #### L 501.0900, M100.2200, L7000.1800 #### [facility] [address] [place], [address] Albumin/Globulin [Mass ratio] 1.5 {ratio} Normal 0.9-2.4 [facility] Comment on above: Result Comment: AMENDED REPORT 12/27/241341 A/G previously reported as: 1.5 RATIO Performed By: #### L 501.0900, M100.2200, L7000.1800 #### [facility] [address] [place], [address] ALK PHOS 61 U/L Normal 35-104 [facility] Comment on above: Result Comment: AMENDED REPORT 12/27/241341 ALK P previously reported as: 61 U/L Performed By: #### L 501.0900, M100.2200, L7000.1800 #### [facility] [address] [place], [address] ALT [Catalytic activity/Vol] 15 U/L Normal <=34 [facility] Comment on above: Result Comment: AMENDED REPORT 12/27/241341 ALT previously reported as: 15 U/L Performed By: #### L 501.0900, M100.2200, L7000.1800 #### [facility] [address] [place], [address] AST [Catalytic activity/Vol] 18 U/L Normal <=31 [facility] Comment on above: Performed By: #### L 501.0900, M100.2200, L7000.1800 #### [facility] [address] [place], [address] Bilirubin [Mass/Vol] 0.26 mg/dL Normal 0.00-1.30 [facility] Comment on above: Result Comment: AMENDED REPORT 12/27/241341 T BILI previously reported as: 0.26 mg/dL Performed By: #### L 501.0900, M100.2200, L7000.1800 #### [facility] [address] [place], [address] BUN/CRE 8.0 RATIO Low 10-20 [facility] Comment on above: Result Comment: AMENDED REPORT 12/27/241341 BUN/CRE previously reported as: 8.0 L RATIO Performed By: #### L 501.0900, M100.2200, L7000.1800 #### [facility] [address] [place], [address] Calcium [Mass/Vol] 9.4 mg/dL Normal 7.6-11.0 [facility] Comment on above: Result Comment: AMENDED REPORT 12/27/241341 CA previously reported as: 9.4 mg/dL Performed By: #### L 501.0900, M100.2200, L7000.1800 #### [facility] [address] [place], [address] Chloride [Moles/Vol] 101 mmol/L Normal 98-108 [facility] Comment on above: Result Comment: AMENDED REPORT 12/27/241341 CL previously reported as: 101 mmol/L Performed By: #### L 501.0900, M100.2200, L7000.1800 #### [facility] [address] [place], [address] CO2 [Moles/Vol] 22.0 mmol/L Normal 21.0-32.0 [facility] Comment on above: Result Comment: AMENDED REPORT 12/27/241341 CO2 previously reported as: 22.0 mmol/L Performed By: #### L 501.0900, M100.2200, L7000.1800 #### [facility] [address] [place], [address] Creatinine [Mass/Vol] 0.65 mg/dL Low 0.70-1.20 [facility] Comment on above: Result Comment: AMENDED REPORT 12/27/241341 CREAT,SERUM previously reported as: 0.65 L mg/dL Performed By: #### L 501.0900, M100.2200, L7000.1800 #### [facility] [address] [place], [address] GAP 12 Normal 5-15 [facility] Comment on above: Performed By: #### L 501.0900, M100.2200, L7000.1800 #### [facility] [address] [place], [address] GFR/1.73 sq M.predicted among non-blacks MDRD (S/P/Bld) [Vol rate/Area] 118 mL/min/{1.73_m2} Normal >60 [facility] Comment on above: Result Comment: mL/m in/1.73m2 CKD-EPI Creatinine Equation (2020) Performed By: #### L 501.0900, M100.2200, L7000.1800 #### [facility] [address] [place], [address] Globulin (S) [Mass/Vol] 2.6 g/dL Normal 2.2-4.2 [facility] Comment on above: Result Comment: AMENDED REPORT 12/27/241341 GLOB previously reported as: 2.6 g/dL Performed By: #### L 501.0900, M100.2200, L7000.1800 #### [facility] [address] [place], [address] Glucose [Mass/Vol] 74 mg/dL Normal 70-99 [facility] Comment on above: Result Comment: AMENDED REPORT 12/27/24 1342 GLU previously reported as: 74 mg/dL Performed By: #### L 501.0900, M100.2200, L7000.1800 #### [facility] [address] [place], [address] Potassium [Moles/Vol] 4.0 mmol/L Normal 3.3-5.1 [facility] Comment on above: Result Comment: AMENDED REPORT 12/27/241341 K previously reported as: 4.0 mmol/L Performed By: #### L 501.0900, M100.2200, L7000.1800 #### [facility] [address] [place], [address] Sodium [Moles/Vol] 135 mmol/L Normal 133-145 [facility] Comment on above: Performed By: #### L 501.0900, M100.2200, L7000.1800 #### [facility] [address] [place], [address] T PROT 6.7 g/dL Normal 5.9-8.4 [facility] Comment on above: Result Comment: AMENDED REPORT 12/27/24 1342 T PROT previously reported as: 6.7 g/dL Performed By: #### L 501.0900, M100.2200, L7000.1800 #### [facility] [address] [place], [address] Urea nitrogen [Mass/Vol] 5 mg/dL Normal 4-19 [facility] Comment on above: Performed By: #### L 501.0900, M100.2200, L7000.1800 #### [facility] [address] [place], [place], [address] Eosinophil percentageOrdered By: Lyssa Aguila on 12-27-2024 Eosinophils/100 WBC (Bld) 0.9 % 0-5 [facility] Erythrocyte distribution wid th ratioOrdered By: Lyssa Aguila on 12-27-2024 Erythrocyte distribution width (RBC) [Ratio] 12.5 % 11.6-14.6 [facility] Erythrocyte distribution wid th standard deviationOrdered By: Lyssa Aguila on 12-27-2024 Erythrocyte distribution width (RBC) [Ratio] 40.3 fl 35.1-43.9 [facility] Glomerular filtration rate ( GFR) estimation/1.73 sq m using serum, plasma, or whole bOrdered By: Lyssa Aguila on 12-27-2024 GFR/1.73 sq M.predicted among non-blacks MDRD (S/P/Bld) [Vol rate/Area] 118 mL/min/{1.73_m2} >60 [facility] Comment on above: mL/min/1.73m2 CKD-EP I Creatinine Equation (2020) HIVon 12-27-2024 HIV Non-Reactive Normal Nonreactive [facility] Comment on above: Result Comment: Non- Reactive Reactive Repeatedly reactive samples must be confirmed according to CDC recommended confirmatory algorithms. The subresults for either HIVAG or AHIV can be used as an aid in the selection of the confirmation algorithm for reactive samples. Send out specimens with Reactive results to [facility] for confirmation. Order the HIV antibody detection and differentiation: #[id number] Performed By: #### L 501.0900, M100.2200, L7000.1800 #### [facility] [address] [place], [address] Hematocrit Auto (Bld) [Volum e fraction]Ordered By: Lyssa Aguila on 12-27-2024 Hematocrit (Bld) [Volume fraction] 41.4 % 37-47 [facility] Hemoglobin A1con 12-27-2024 HbA1c (Bld) [Mass fraction] 5.1 % Normal <=5.6 [facility] Comment on above: Result Comment: Norm al < 5.7 % Prediabetic 5.7 - 6.4 % Diabetic >or= 6.5 % Please note range changes. Performed By: #### L 501.0900, M100.2200, L7000.1800 #### [facility] [address] [place], [address] Hemoglobin A1c percentageOrd ered By: Lyssa Aguila on 12-27-2024 HbA1c (Bld) [Mass fraction] 5.1 % <5.7 [facility] Comment on above: Normal < 5.7 % Predi abetic 5.7 - 6.4 % Diabetic >or= 6.5 % Please note range changes. Hemoglobin measurementOrdere d By: Lyssa Aguila on 12-27-2024 Hemoglobin (Bld) [Mass/Vol] 13.9 g/dL 12.0-15.0 [facility] Hepatitis C Antibodyon 12-27 Hepatitis C Ab Non-Reactive Normal Nonreactive [facility] Comment on above: Result Comment: Reac tive: Presumptive evidence of antibodies to HCV. Follow CDC recommendations for supplemental testing. Non-Reactive: Antibodies to HCV were not detected; does not exclude the possibility of exposure to HCV Reactive Results are presumptive evidence of antibodies to HCV. Follow CDC recommendations for supplemental testing. Order confirmation testing: HCV Quant by PCR testing - HCVPCR #[id number] Non Reactive: < 0.8 Equivocal: >/= 0.8 to < 1.0 Reactive: >/= 1.0 The CDC requires that a reactive/equivocal HCV antibody result be sent out for confirmation. HCV Quant by PCR testing. Performed By: #### L 501.0900, M100.2200, L7000.1800 #### [facility] [address] [place], [address] Immature granulocytes/100 WB C Auto (Bld)Ordered By: Lyssa Aguila on 12-27-2024 Immature granulocytes/100 WBC (Bld) 0.500 % 0.0-0.9 [facility] Comment on above: IG% - Immature Granu locytes (promyelocytes, myelocytes and metamyelocytes) > 1% indicates that a LEFT SHIFT is Present. L3890.6102on 12-27-2024 HEP B Surf Ag Non-Reactive Normal Nonreactive [facility] Comment on above: Result Comment: Reac tive: Presumptive evidence of HBV. Repeatedly reactive samples must be confirmed using a neutralization test ([employer] HBsAg Confirmatory Test) Non-Reactive: HBsAg not detected; does not exclude the possibility of exposure to HBV Performed By: #### L 501.0900, M100.2200, L7000.1800 #### [facility] [address] [place], [address] L509.4006on 12-27-2024 Rubella IgG REAC Normal Nonreactive [facility] Comment on above: Result Comment: Anti body Result: Interpretation Non-Reactive: Non-Immune Reactive: Immune The following results were obtained with the [employer] Rubella IgG assay. Results from assays of other manufacturers cannot be used interchangeably. Performed By: #### L 501.0900, M100.2200, L7000.1800 #### [facility] [address] [place], [place], [address] Laboratory - Chemistry and C hemistry - challengeOrdered By: Lyssa Aguila on 12-27-2024 AST [Catalytic activity/Vol] 18 U/L <32 [facility] - Chemistry and C hemistry - challengeOrdered By: Manda Aguirre on 12-27-2024 Bilirubin Ql (U) Negative [facility] Glucose Ql (U) Negative [facility] Ketones Ql (U) Negative [facility] pH (U) 6.5 [pH] [facility] Specific gravity (U) [Rel density] 1.010 [facility] Urobilinogen (U) [Mass/Vol] Negative [facility] Laboratory - Hematology and Cell countsOrdered By: Manda Aguirre on 12-27-2024 Hemoglobin Ql (U) Negative [facility] - Microbiology an d Antimicrobial susceptibilityOrdered By: Lyssa Aguila on 12-27-2024 HBV surface Ag Ql (S) Non-Reactive Nonreactive [facility] Comment on above: Reactive: Presumptiv e evidence of HBV. Repeatedly reactive samples must be confirmed using a neutralization test ([employer]ys HBsAg Confirmatory Test)Non-Reactive: HBsAg not detected; does not exclude the possibility of exposure to HBV Laboratory - Specimen inform ationOrdered By: Manda Aguirre on 12-27-2024 Clarity (U) Clear [facility] Color (U) YELLOW [facility] Laboratory - UrinalysisOrder ed By: Manda Aguirre on 12-27-2024 Nitrite Ql (U) Negative [facility] Protein Ql (U) Negative [facility] MCV (mean corpuscular volume ) determinationOrdered By: Lyssa Aguila on 12-27-2024 MCV (RBC) [Entitic vol] 87.3 fL 81-99 [facility] Mean corpuscular hemoglobin (MCH) determinationOrdered By: Lyssa Aguila on 12-27-2024 MCH (RBC) [Entitic mass] 29.3 pg 27.0-32.0 [facility] Mean corpuscular hemoglobin concentration (MCHC) determinationOrdered By: Lyssa Aguila on 12-27-2024 MCHC (RBC) [Mass/Vol] 33.6 g/dL 32-36 [facility] Mean platelet volume determi nationOrdered By: Lyssa Aguila on 12-27-2024 Platelet mean volume (Bld) [Entitic vol] 10.2 fL 6.2-12.0 [facility] Monocyte percentageOrdered B y: Lyssa Aguila on 12-27-2024 Monocytes/100 WBC (Bld) 6.1 % 0-10 [facility] NATERAon 12-27-2024 NATURA SEE SCANNED REPORT Normal [facility] Comment on above: Performed By: #### L 500.4050, L100.0100, L501.9985, L3890.6102, L3890.6006, L509.4006, L3890.6301, L501.9520, BTS, L509.8002, L900.0098 #### [facility] [address] [place], [place], [id number] Neutrophil percentageOrdered By: Lyssa Aguila on 12-27-2024 Neutrophils/100 WBC (Bld) 72.9 % High 47-70 [facility] No Panel InformationOrdered By: Lyssa Aguila on 12-27-2024 HIV (1&2) Antibody Non-Reactive Nonreactive [facility] Comment on above: Non-ReactiveReactive Repeatedly reactive samples must be confirmed according to CDC recommended confirmatory algorithms. 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 Visit Reporton 12-27-2024 Pit Furnace Operator Office Visit Report [facility]'s [address], [address] [place] [address] OFFICE VISIT Date of Service: 12/27/24 MR#: [id number] Acct: [id number] Name: DEMARCUS ABAD Rep #: [id number] : 1990 Provider: LUCILA arriola Age/Sex: 34/F [place] [facility] [place]: Signed Intake Vital Signs 08/23/24 15:14 11/24/24 12:59 12/27/24 09:51 12/27/24 09:51 Height 5 ft 2 in 5 ft 2 in 5 ft 2 in 5 ft 2 in Weight: 168 lb 8 oz 166 lb BMI 30.8 30.3 BP 108/74 115/73 Intake Visit Reasons: 12 wks 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 Is patient in pain?: No Allergies Penicillins Allergy (Unknown, Verified 12/27/24 09:51) Unknown Medications ???Medication ???Instructions ???Recorded ???Confirmed ???Type ferrous sulfate 325 mg (65 mg 325 mg PO DAILY 09/05/23 12/27/24 History iron) tablet (Feosol) multivit-min no.71-iron fum 28 cap PO 11/12/24 12/27/24 History mg-folate no.1 1 mg-dha 300 mg capsule (PNV-Lowell) nitrofurantoin 100 mg PO BID 7 days #14 caps 12/0612/27/24 Rx monohydrate/macrocry stals 100 mg capsule (Macrobid) Last Menstrual Period: 09/27/24 Zika: Zika virus screening: Negative : No PFSH PFSH Medical History Hx of varicose veins of lower extremity Depression Nodular goiter HPV (human papilloma virus) infection Thyroid disorder Pre-eclampsia Abnormal glucose Anemia Surgical History History of bunionectomy of right great toe [place] teeth extracted History of colposcopy Family History Mother Hypertension Father Diabetes Aunt Thyroid disorder Maternal- unknown type Social History adopted: No household members: spouse and children housing: house number of children: 2 current occupational status: unemployed current occupation: 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 Date Name GA/Weeks Outcome Route Bth Weight Gen Labor Lgth Anesthesia Del Locatn Provider FOB Unknown 08/2024 6 spontaneous 04/30/08 Shlomo 36 live - 6# Male epidural [facility] Taye 08/08/21 Emalie 36 live - 6lbs 14oz Female epidural [facility] [place] Delivery Date: 04/30/08 Last Updated by: Manda Aguirre MEDICAL ASSISTANT SECRETARY, MEDICAL ASSISTANT SECRETARY-C Induced to preeclampsia, teen Delivery Date: 08/08/21 Last Updated by: Ashley Cortes IOL pre-e HPI 12 wks OB Details: DEMARCUS ABAD is a 34 year old who presents for routine OB visit. OB Visit ROSE Calculator Estimated Delivery Date Method Current WG Current Estimate 07/04/25 LMP (Certain) 13w 0d Other Estimates 07/07/25 Ultrasound #1 12w 4d Expected Delivery Route/Plan Labor Preferences- CB/BF classes: [...] list details Initial Weight: 168 lb Date -???-???-???-???-??? -???-???-???-???-??? -???-???- EGA Weight BP Urine Prot -???-???-???-???-??? -???-???-???-???-??? -???-???- Glucose FHR FuHt Pres Dilation -???-???-???-???-??? -???-???-???-???-??? -???-???- Effaced St Visit Note 11/24/24 -???-???-???-???-??? -???-???-???-???-??? -???-???- 8w 2d 168 lb 8 oz (+8 oz) 108/74 -???-???-???-???-??? -???-???-???-???-??? -???-???- 162 -???-???-???-???-??? -???-???-???-???-??? -???-???- KW- CRL c (more content not included)... Normal [facility] Platelet countOrdered By: Miko Aguila on 12-27-2024 Platelets (Bld) [#/Vol] 236 10*3/uL 150-450 [facility] Potassium measurement (mass/ volume)Ordered By: Lyssa Aguila on 12-27-2024 Potassium (Unsp spec) [Mass/Vol] 3.9 mmol/L 3.3-5.1 [facility] Comment on above: Previous reported re sult: 4.0 mmol/LEdited by: ALEXANDER on 12/27/24:1342 AMENDED REPORT 12/27/24 1342 K previously reported as: 4.0 mmol/L RBC Auto (Bld) [#/Vol]Ordere d By: Lyssa Aguila on 12-27-2024 RBC (Bld) [#/Vol] 4.74 10*6/uL 4.2-5.4 [facility] Serum creatinine measurement (mass/volume)Ordered By: Lyssa Aguila on 12-27-2024 Creatinine [Mass/Vol] 0.62 mg/dL Low 0.70-1.20 [facility] Comment on above: Previous reported re sult: 0.65 mg/dLEdited by: ALEXANDER on 12/27/24:1342 AMENDED REPORT 12/27/24 1342 CREAT,SERUM previously reported as: 0.65 L mg/dL Serum globulin measurementOr dered By: Lyssa Aguila on 12-27-2024 Globulin (S) [Mass/Vol] 3.2 g/dL 2.2-4.2 [facility] Comment on above: Previous reported re sult: 2.6 g/dLEdited by: ALEXANDER on 12/27/24:1342 AMENDED REPORT 12/27/24 1342 GLOB previously reported as: 2.6 g/dL Serum glucose measurement (m ass/volume)Ordered By: Lyssa Aguila on 12-27-2024 Glucose [Mass/Vol] 72 mg/dL 70-99 [facility] Comment on above: Previous reported re sult: 74 mg/dLEdited by: ALEXANDER on 12/27/24:1342 AMENDED REPORT 12/27/24 1342 GLU previously reported as: 74 mg/dL Serum or plasma alanine rose otransferase (ALT) measurementOrdered By: Lyssa Aguila on 12-27-2024 ALT [Catalytic activity/Vol] 16 U/L <35 [facility] Comment on above: Previous reported re sult: 15 U/LEdited by: NADEEMS on 12/27/24:1342 AMENDED REPORT 12/27/24 134 ALT previously reported as: 15 U/L Serum or plasma albumin david urement (mass/volume)Ordered By: Lyssa Aguila on 12-27-2024 Albumin [Mass/Vol] 3.8 g/dL 3.5-5.0 [facility] Comment on above: Previous reported re sult: 4.1 g/dLEdited by: ALEXANDER on 12/27/24:1342 AMENDED REPORT 12/27/24 1342 ALB previously reported as: 4.1 g/dL Serum or plasma albumin/glob ulin mass ratioOrdered By: Lyssa Aguila on 12-27-2024 Albumin/Globulin [Mass ratio] 1.2 {ratio} 0.9-2.4 [facility] Comment on above: Previous reported re sult: 1.5 RATIOEdited by: ALEXANDER on 12/27/24:1342 AMENDED REPORT 12/27/24 1342 A/G previously reported as: 1.5 RATIO Serum or plasma alkaline brayan sphatase measurementOrdered By: Lyssa Aguila on 12-27-2024 ALP [Catalytic activity/Vol] 58 U/L 35-104 [facility] Comment on above: Previous reported re sult: 61 U/LEdited by: ALEXANDER on 12/27/24:1342 AMENDED REPORT 12/27/24 134 ALK P previously reported as: 61 U/L Serum or plasma calcium david urement (mass/volume)Ordered By: Lyssa Aguila on 12-27-2024 Calcium [Mass/Vol] 9.1 mg/dL 7.6-11.0 [facility] Comment on above: Previous reported re sult: 9.4 mg/dLEdited by: AUTOINS on 12/27/24:1342 AMENDED REPORT 12/27/241341 CA previously reported as: 9.4 mg/dL Serum or plasma urea nitroge n measurement (mass/volume)Ordered By: Lyssa Aguila on 12-27-2024 Urea nitrogen [Mass/Vol] 5 mg/dL 4-19 [facility] Sodium levelOrdered By: Yuliana Aguila on 12-27-2024 Sodium [Moles/Vol] 135 mmol/L 133-145 [facility] Syphilis Antibodieson 2024 Syphilis Abs Non-Reactive Normal Nonreactive [facility] Comment on above: Performed By: #### L 501.0900, M100.2200, L7000.1800 #### [facility] [address], [place], [id number] TSH DL <= 0.005 mIU/L QnOrde red By: Lyssa Aguila on 12-27-2024 TSH Qn 0.026 uIU/mL Low 0.300-4.200 [facility] Thyroid Stim Hormone (TSH)on 12-27-2024 TSH 0.026 uIU/mL Low 0.300-4.200 [facility] Comment on above: Performed By: #### L 501.0900, M100.2200, L7000.1800 #### [facility] [address] [place], [place], [id number] Total proteinOrdered By: Jose Aguila on 12-27-2024 Protein [Mass/Vol] 7.0 g/dL 5.9-8.4 [facility] Comment on above: Previous reported re sult: 6.7 g/dLEdited by: AUTOINS on 12/27/24:1342 AMENDED REPORT 12/27/241341 T PROT previously reported as: 6.7 g/dL Type AND Screenon 12-27-2024 Ab SCREEN GEL Negative Normal [facility] Comment on above: Order Comment: PN Performed By: #### L 501.0900, M100.2200, L7000.1800 #### [facility] [address] [place], [address] Urine cultureOrdered By: Nishant Aguirre on 12-27-2024 Bacteria identified Cx Nom (U) Culture exhibits no growth. [facility] White blood cell (WBC) count Ordered By: Lyssa Aguila on 12-27-2024 WBC (Bld) [#/Vol] 7.8 10*3/uL 4.4-11.0 [facility] Chlamydia/GC GEETA aptimaon CHLAMY,NUC ACID Negative Normal Negative [facility] Comment on above: Performed By: #### L 501.0900, M100.2200, L7000.1800 #### [facility] [address] [place], [address] GC BY NUC ACID Negative Normal Negative [facility] Comment on above: Result Comment: Perf ormed at: =G - [facility] [address] [id number] Fire Technician: Patrizia De La Torre MD, Phone: [phone] Performed By: #### L 501.0900, M100.2200, L7000.1800 #### [facility] [address] [place], [address] Protein+Creatinine Ratio,Uri neon 11-25-2024 PROT:CRE RATIO 51 mg/g CRE Normal 0-200 [facility] Comment on above: Performed By: #### L 501.0900, M100.2200, L7000.1800 #### [facility] [address] [place], [address] Protein (U) [Mass/Vol] 14.1 mg/dL High 0.0-12.0 [facility] Comment on above: Performed By: #### L 501.0900, M100.2200, L7000.1800 #### [facility] [address] [place], [address] UR CREAT 277.00 mg/dL High 28.00-217.00 [facility] Comment on above: Performed By: #### L 501.0900, M100.2200, L7000.1800 #### [facility] [address] [place], [address] Urine Cultureon 11-25-2024 URC Culture exhibits no growth. Normal [facility] Comment on above: Performed By: #### L 501.0900, M100.2200, L7000.1800 #### [facility] [address] [place], [place], [id number] Chlamydia trachomatis rRNA d etection by probe and target amplification methodOrdered By: Lyssa Aguila on 11-24-2024 C. trachomatis rRNA GEETA+probe Ql (Unsp spec) Negative Negative [facility] Neisseria gonorrhoeae nuclei c acid detection by amplified probe techniqueOrdered By: Lsysa Aguila on 11-24-2024 N. gonorrhoeae DNA GEETA+probe Ql (Unsp spec) Negative Negative [facility] Comment on above: Performed at: =[address] [id number] Director: Patrizia De La Torre MD, Phone: [phone] Pit Furnace Operator Office Visit Reporton 11-24-2024 Pit Furnace Operator Office Visit Report [facility]'s [address], [address] [place] [address] OFFICE VISIT Date of Service: 11/24/24 MR#: [id number] Acct: [id number] Name: DEMARCUS ABAD Rep #: [id number] : 1990 Provider: SULLY Boudreaux ams Age/Sex: 34/F [place] [facility] [place]: Signed Intake Vital Signs 08/23/24 15:14 11/24/24 12:59 Height 5 ft 2 in 5 ft 2 in Weight: 166 lb 168 lb 8 oz BMI 30.3 30.8 BP 119/77 108/74 Intake Visit Reasons: NOB LMP 09/27 Chief Complaint: 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 Is patient in pain?: No Allergies Penicillins Allergy (Unknown, Verified 11/24/24 12:57) Unknown Medications ???Medication ???Instructions ???Recorded ???Confirmed ???Type ferrous sulfate 325 mg (65 mg 325 mg PO DAILY 09/05/23 11/24/24 History iron) tablet (Feosol) multivit-min no.71-iron fum 28 cap PO 11/12/24 11/24/24 History mg-folate no.1 1 mg-dha 300 mg capsule (PNV-Lowell) Last Menstrual Period: 09/27/24 : Yes PFSH PFSH Medical History Hx of varicose veins of lower extremity Depression Nodular goiter HPV (human papilloma virus) infection Thyroid disorder Pre-eclampsia Abnormal glucose Anemia Surgical History History of bunionectomy of right great toe [place] teeth extracted History of colposcopy Family History Mother Hypertension Father Diabetes Aunt Thyroid disorder Maternal- unknown type Social History adopted: No household members: spouse and children housing: house number of children: 2 service: No current occupational status: unemployed current occupation: 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 -???-???-???-???-??? -???-???- EGA Weight BP Urine Prot -???-???-???-???-??? -???-???-???-???-??? -???-???- Glucose FHR FuHt Pres Dilation -???-???-???-???-??? -???-???-???-???-??? -???-???- Effaced St Visit Note 11/24/24 -???-???-???-???-??? -???-???-???-???-??? -???-???- 8w 2d 168 lb 8 oz (+8 oz) 108/74 -???-???-???-???-??? -???-???-???-???-??? -???-???- 162 -???-???-???-???-??? -???-???-???-???-??? -???-???- KW- CRL cons with dates. accepts NIPT. Menstrual History Last Menstrual Period: 09/27/24 Repo (more content not included)... Normal [facility] Random urine creatinine david urement (mass/volume)Ordered By: Lyssa Aguila on 11-24-2024 Creatinine Unsp time (U) [Mass/Vol] 277.00 mg/dL High 28.00-217.00 [facility] Urine cultureOrdered By: Jose Aguila on 11-24-2024 Bacteria identified Cx Nom (U) Culture exhibits no growth. [facility] Urine protein measurement (m ass/volume)Ordered By: Lyssa Aguila on 11-24-2024 Protein (U) [Mass/Vol] 14.1 mg/dL High 0.0-12.0 [facility] Urine protein/creatinine mas s ratioOrdered By: Lyssa Aguila on 11-24-2024 Protein/Creatinine (U) [Mass ratio] 51 mg/g CRE 0-200 [facility] Serum human chorionic gonado tropin detection for pregnancyOrdered By: Lyssa Aguila on 08-25-2024 HCG ( test) Ql 10 mIU/mL High <4 [facility] Comment on above: hCG levels with Gest ational AgeGestational Age hCG mIU/mL (IU/L)0.2 - 1 week 5 - 501-2 weeks 50 - 5002-3 weeks 100 - 36866-4 weeks 500 - 575917-2 weeks 1000 - 890995-0 weeks 94177 - 100,0006-8 weeks 22485 - 200,0002-3 months 37022 - 100,000 hCG Titer Quant., Serumon HCG QUANT. 10 mIU/mL High 1-3 [facility] Comment on above: Order Comment: PT DI D NOT WANT TO DO DR GALLEGOS ORDERS THAT ARE INTERNAL. Result Comment: hCG levels with Gestational Age Gestational Age hCG mIU/mL (IU/L) 0.2 - 1 week 5 - 50 1-2 weeks 50 - 500 2-3 weeks 100 - 5000 3-4 weeks 500 - 34417 4-5 weeks 1000 - 39800 5-6 weeks 30289 - 100,000 6-8 weeks 63252 - 200,000 2-3 months 93520 - 100,000 Performed By: #### L 501.0900, M100.2200, L7000.1800 #### [facility] [address] [place], [address] Pit Furnace Operator Office Visit Reporton 08-23-2024 Pit Furnace Operator Office Visit Report [facility] [address], [address] [place] [address] OFFICE VISIT Date of Service: 08/23/24 MR#: [id number] Acct: [id number] Name: DEMARCUS ABAD Rep #: [id number] : 1990 Provider: SULLY Boudreaux ams Age/Sex: 34/F [place] [facility] [place]: Signed Intake Vital Signs 08/23/24 09:05 [...] PO 08/23/24 08/23/24 History capsule ( DHA) [facility] Medical History Abnormal glucose Anemia HPV (human [...] Shlomo 36 live - 6# Male epidural [facility] Taye 08/08/21 Emalie 36 live - 6lbs 14oz Female [facility] Vand e Velde Delivery Date: 04/30/08 Last Updated by: Manda Aguirre MEDICAL ASSISTANT SECRETARY, MEDICAL ASSISTANT SECRETARY-C Induced to preeclampsia, teen Delivery Date: 08/08/21 Last Updated by: Ashley Cortes IOL pre-e ROS Const Constitutional: Reports system reviewed [...] RTO PRN/annual 08/23/24 1608 Date Lyssa Aguila [facility] Cosigner Signature: Date __ (more content not included)... Normal [facility] Serum human chorionic gonado tropin detection for pregnancyOrdered By: Lyssa Aguila on 08-23-2024 HCG ( test) Ql 28 mIU/mL High <4 [facility] Comment on above: hCG levels with Gest ational AgeGestational Age hCG mIU/mL (IU/L)0.2 - 1 week 5 - 501-2 weeks 50 - 5002-3 weeks 100 - 36531-0 weeks 500 - 603269-0 weeks 1000 - 281942-6 weeks 40003 - 100,0006-8 weeks 93339 - 200,0002-3 months 81695 - 100,000 hCG Titer Quant., Serumon HCG QUANT. 28 mIU/mL High 1-3 [facility] Comment on above: Order Comment: viabi lity Result Comment: hCG levels with Gestational Age Gestational Age hCG mIU/mL (IU/L) 0.2 - 1 week 5 - 50 1-2 weeks 50 - 500 2-3 weeks 100 - 5000 3-4 weeks 500 - 33092 4-5 weeks 1000 - 15186 5-6 weeks 92588 - 100,000 6-8 weeks 46506 - 200,000 2-3 months 75001 - 100,000 Performed By: #### L 700.8000 #### [facility] [address] [place], [place], [id number] Laboratory - Chemistry and C hemistry - challengeOrdered By: Denis Galdamez on 03-11-2023 Free T4 [Mass/Vol] 0.96 ng/dL 0.76-1.46 [facility] No Panel InformationOrdered By: Denis Galdamez on 03-11-2023 Free Triiodothyronine (T3) pg/dL 3.2 pg/mL 2.18-3.98 [facility] Thyroid Stimulating Hormone (TSH) 0.41 uIU/mL 0.358-3.74 [facility] Serum or plasma thyroperoxid ase antibody assay (units/volume)Ordered By: Denis Galdamez on 03-11-2023 TPO Ab Qn 10 [IU]/mL 0-34 [facility] Comment on above: Performed at: [address] [id number] Director: Robert Peters PhD, Phone: [phone] PREGUon 09-19-2022 HCG ( test) Ql (U) Negative Normal [facility] ([place]) Comment on above: Performed By: #### P REGU #### [place] [address] [address] test (u) int Not detected Invalid Interpretation Code [facility] ([place]) Comment on above: Performed By: #### P REGU #### [place] [address] [address] Laboratory - Chemistry and C hemistry - challengeon 03-15-2022 Free T4 [Mass/Vol] 0.99 ng/dL 0.76-1.46 [facility] Work Phone: No Panel Informationon 03-15 Free Triiodothyronine (T3) pg/dL 3.3 pg/mL 2.18-3.98 [facility] Work Phone: Thyroid Stimulating Hormone (TSH) 0.34 uIU/mL 0.358-3.74 [facility] Work Phone: CNPRashida 12-27-2020 CNPN Telephone (OBGYWM) DEMARCUS TAMEZ ([id number]) 1990 F Date Time Provider Department 12/27/20 KANCHAN PADILLA OBGYWM During your visit today, we recorded the [...] to call patient. Unable to leave message. [employer] message sent. Lorenza Zheng RN Allergies As of Date: 12/27/2020 Noted Allergy Reaction BUPROPION 05/16/2016 5 - Intolerance Comments: headache PENICILLINS 05/27/2005 Date Reviewed: 10/30/2020 Reviewed by: Yanique Rodriguez LPN - Fully Assessed Reason for Visit: Early OB Cramping [Other] Primary Visit Diagnosis:Pelvic pain during [O26.899, R10.2] Order(s):HCG QUANTITATIVE [SQHCGQT] Order #: [id number] STANDING Prescriptions as of 12/27/2020 Sig: -1 ORAL Take by mouth. Problem List As Of Date 12/27/2020 Noted Resolved Thyroid goiter [E04.9] 12/30/2014 Anemia [D64.9] 01/16/2015 08/16/2016 Attention and concentration deficit [R41.840] 04/19/2015 Iron deficiency anemia secondary to inadequate *04/19/2015 Encounter Status:Closed by ROBERT AZAR RN [facility]21 [facility] ([id number]) 1990 F Date Time Provider Department 11/01/20 BRIAN ALCOCER During your visit today, we recorded the following information about you: Brian Alcocer MD 11/01/2020 12:05 PM Signed Slightly anemic. Most likely due to periods. Ifs he is taking her prenates with iron that should help. Can consider rechecking cbc and iron in one month Yanique Rodriguez LPN 11/01/2020 1:33 PM Signed Patient notified. Allergies As of Date: 11/01/2020 Noted Allergy Reaction BUPROPION 05/16/2016 5 - Intolerance Comments: headache PENICILLINS 05/27/2005 Date Reviewed: 10/30/2020 Reviewed by: Yanique Rodriguez LPN - Fully Assessed Reason for Visit: Results [95] Primary Visit Diagnosis:Anemia, unspecified type [D64.9] Order(s):CBC + DIFF [SQCBCDIF] Order #: [id number] FUTURE IRON + TIBC [SQIRON] Order #: [id number] FUTURE Prescriptions as of 11/01/2020 Sig: -1 ORAL Take by mouth. Problem List As Of Date 11/01/2020 Noted Resolved Thyroid goiter [E04.9] 12/30/2014 Anemia [D64.9] 01/16/2015 08/16/2016 Attention and concentration deficit [R41.840] 04/19/2015 Iron deficiency anemia secondary to inadequate *04/19/2015 Encounter Status:Closed by YANIQUE RODRIGUEZ LPN on 11/01/20 Normal [facility] CBC and Differentialon 10-31 Abs Baso 0.03 k/uL Normal <0.11 [facility] Comment on above: Performed By: #### C BCDIF, CMP #### [address] [place], [place] [address] Abs Nye 0.50 k/uL Normal <0.87 [facility] Comment on above: Performed By: #### C BCDIF, CMP #### [address] [place], [place] [phone] Abs Neut 2.90 k/uL Normal 1.45-7.50 [facility] Comment on above: Performed By: #### C BCDIF, CMP #### [facility] [address] [place], [place] [address] Absolute nRBC <0.01 Normal <0.01 [facility] Comment on above: Performed By: #### C BCDIF, CMP #### [facility] [address] [place], [place] [address] Basophils/100 WBC (Bld) 0.5 % Normal C [facility] Comment on above: Performed By: #### C BCDIF, CMP #### [address] [place] [phone] DTYPE Auto Diff Normal [facility] Comment on above: Performed By: #### C BCDIF, CMP #### [place] [phone] Eosinophils (Bld) [#/Vol] 0.12 10*3/uL Normal <0.46 [facility] Comment on above: Performed By: #### C BCDIF, CMP #### [place] [phone] Eosinophils/100 WBC (Bld) 1.9 % Normal [facility] Comment on above: Performed By: #### C BCDIF, CMP #### [place] [phone] Erythrocyte distribution width (RBC) [Ratio] 14.6 % Normal 11.5-15.0 [facility] Comment on above: Performed By: #### C BCDIF, CMP #### [place] [phone] Hematocrit (Bld) [Volume fraction] 37.2 % Normal 36.0-46.0 [facility] Comment on above: Performed By: #### C BCDIF, CMP #### [address] [place] [phone] Hemoglobin (Bld) [Mass/Vol] 11.1 g/dL Low 11.5-15.5 [facility] Comment on above: Performed By: #### C BCDIF, CMP #### [address] [place] [phone] Lymphocytes (Bld) [#/Vol] 2.78 10*3/uL Normal 1.00-4.00 [facility] Comment on above: Performed By: #### C BCDIF, CMP #### [facility] [address] [place], [place] [address] Lymphocytes/100 WBC (Bld) 43.8 % Normal [facility] Comment on above: Performed By: #### C BCDIF, CMP #### [facility] [address] [place], [place] [address] MCH 24.9 pG Low 26.0-34.0 [facility] Comment on above: Performed By: #### C BCDIF, CMP #### [address] [place], [place] [address] MCHC (RBC) [Mass/Vol] 29.8 g/dL Low 30.5-36.0 [facility] Comment on above: Performed By: #### C BCDIF, CMP #### [address] [place] [address] MCV (RBC) [Entitic vol] 83.4 fL Normal 80.0-100.0 [facility] Comment on above: Performed By: #### C BCDIF, CMP #### [address] [place], [place] [address] Monocytes/100 WBC (Bld) 7.9 % Normal [facility] Comment on above: Performed By: #### C BCDIF, CMP #### [address] [place], [place] [address] Neutrophils/100 WBC (Bld) 45.9 % Normal [facility] Comment on above: Performed By: #### C BCDIF, CMP #### [address] [place], [place] [address] NRBCs 0.0 /100 WBC Normal 0 [facility] Comment on above: Performed By: #### C BCDIF, CMP #### [address] [place], [place] [address] Platelet mean volume (Bld) [Entitic vol] 10.3 fL Normal 9.0-12.7 [facility] Comment on above: Performed By: #### C BCDIF, CMP #### [facility] [email or web address] [address] [place] [address] Platelets (Bld) [#/Vol] 304 10*3/uL Normal 150-400 [facility] Comment on above: Performed By: #### C BCDIF, CMP #### [facility] [address] [place] [address] RBC (Bld) [#/Vol] 4.46 10*6/uL Normal 3.90-5.20 [facility] Comment on above: Performed By: #### C BCDIF, CMP #### [facility] [address] [place] [address] WBC (Bld) [#/Vol] 6.35 10*3/uL Normal 3.70-11.00 [facility] Comment on above: Performed By: #### C BCDIF, CMP #### [address] [place] [address] Jennifer 10-31-2020 [facility] DEMARC[facility] TAMEZ ([id number]) 1990 F Date Time Provider Department 10/31/20 [facility] During your visit today, we recorded the following information about you: DARIN Appiah 10/31/2020 5:21 PM Signed Please advise d-dimer was negative. Thanks, CARSON Elizabeth Ma 10/31/2020 5:25 PM Signed Pt notified Allergies As of Date: 10/31/2020 Noted Allergy Reaction BUPROPION 05/16/2016 5 - Intolerance Comments: headache PENICILLINS 05/27/2005 Date Reviewed: 10/30/2020 Reviewed by: Yanique Rodriguez LPN - Fully Assessed Reason for Visit: Results [95] Prescriptions as of 10/31/2020 Sig: -1 ORAL Take by mouth. Problem List As Of Date 10/31/2020 Noted Resolved Thyroid goiter [E04.9] 12/30/2014 Anemia [D64.9] 01/16/2015 08/16/2016 Attention and concentration deficit [R41.840] 04/19/2015 Iron deficiency anemia secondary to inadequate *04/19/2015 Encounter Status:Closed by ANMOL ARGUELLO MA on 10/31/20 Normal [facility] Comp Metabolic Panelon 10-31 Albumin [Mass/Vol] 4.3 g/dL Normal 3.9-4.9 [facility] Comment on above: Performed By: #### C BCDIF, CMP #### [facility] [address] [place], [place] [address] ALP [Catalytic activity/Vol] 57 U/L Normal 34-123 [facility] Comment on above: Performed By: #### C BCDIF, CMP #### [facility] [address] [place], [place] [address] ALT [Catalytic activity/Vol] 13 U/L Normal 7-38 [facility] Comment on above: Performed By: #### C BCDIF, CMP #### [facility] [address] [place], [place] [address] Anion gap [Moles/Vol] 12 mmol/L Normal 9-18 [facility] Comment on above: Performed By: #### C BCDIF, CMP #### [facility] [address] [place], [place] [address] AST [Catalytic activity/Vol] 28 U/L Normal 13-35 [facility] Comment on above: Performed By: #### C BCDIF, CMP #### [facility] [address] [place], [place] [address] Bilirubin [Mass/Vol] mg/dL Low 0.2-1.3 [facility] Comment on above: Performed By: #### C BCDIF, CMP #### [facility] [address] [place] [phone] Calcium [Mass/Vol] 9.3 mg/dL Normal 8.5-10.2 [facility] Comment on above: Performed By: #### C BCDIF, CMP #### [address] [place] [address] Chloride [Moles/Vol] 105 mmol/L Normal 97-105 [facility] Comment on above: Performed By: #### C BCDIF, CMP #### [place] [address] CO2 [Moles/Vol] 23 mmol/L Normal 22-30 [facility] Comment on above: Performed By: #### C BCDIF, CMP #### [address] [place] [place] [address] Creatinine [Mass/Vol] 0.82 mg/dL Normal 0.58-0.96 [facility] Comment on above: Performed By: #### C BCDIF, CMP #### [address] [place] [address] eGFR- Amer. >60 Normal [facility] Comment on above: Performed By: #### C BCDIF, CMP #### [place] [address] eGFR-All Other Races >60 Normal [facility] Comment on above: Result Comment: eGFR [...] reflect actual GFR. Performed By: #### C ERICA CMP #### [facility] [email or web address] [address] [place], [place] [address] Glucose [Mass/Vol] 76 mg/dL Normal 74-99 [facility] Comment on above: Result Comment: The [place] Diabetes Association (ADA) provides guidance for cutoff [...] Standards of Medical Care in Diabetes 2016, [place] [employer]. Diabetes Care. 2016.39(Suppl 1). Performed By: #### C ERICA CMP #### [facility] [email or web address] [address] [place], [place] [address] Potassium [Moles/Vol] 3.9 mmol/L Normal 3.7-5.1 [facility] Comment on above: Performed By: #### C BCNAYAN, CMP #### [facility] [email or web address] [address] [place], [place] [address] Protein [Mass/Vol] 7.0 g/dL Normal 6.3-8.0 [facility] Comment on above: Performed By: #### C BCNAYAN, CMP #### [facility] [address] [place], [place] [address] Sodium [Moles/Vol] 140 mmol/L Normal 136-144 [facility] Comment on above: Performed By: #### C MARYCHUY MALDONADO #### [facility] [address] [place], [place] [phone] Urea nitrogen [Mass/Vol] 11 mg/dL Normal 7-21 [facility] Comment on above: Performed By: #### C BCDIF, CMP #### [facility] [address] [place], [place] [phone] D dimeron 10-31-2020 D dimer Test sent to [facility]. Normal <500 [facility] Comment on above: Result Comment: Acco unt Credited MARGARETE CNOVon 10-30-2020 CNOV Office Visit (FAMPWS) DEMARCUS TAMEZ ([id number]) 1990 F Date Time Provider Department 10/30/20 6:00 PM BRIAN ALCOCER During your visit today, we recorded the following information about you: Pulse Blood pressure Weight 80/minute 102/72 58.5 kg Brian Alcocer MD 10/30/2020 7:08 PM Signed Patient presents [...] (-1 ORAL) Take by mouth. No current facility-administere d medications for this visit. ALLERGIES: ALLERGIES Allergen [...] Thyroid nodu (more content not included)... Normal [facility] CNOVon 09-11-2020 CNOV Office Visit (UCWSTR) DEMARCUS TAMEZ ([id number]) 1990 F Date Time Provider Department 09/11/20 8:45 AM JACEY GALDAMEZ) [facility] During your visit today, we recorded the following information about you: Jacey Galdamez APRN.CNP 09/11/2020 9:25 AM Signed Subjective Patient triaged in express care. Patient presenting with intermittent dizziness, left chest pain, left arm numbness for "months". Denies cardiac history. Discussed limitations of express [...] by JACEY GALDAMEZ CNP on 09/11/20 Normal [facility] Vital Signs Date Time Vital Sign Value Performing Clinician Chetan oswald 04-28-2025 10:42-0400 Body height 157.[address] Beatriz Escobar MD Work Phone: [facility] 04-28-2025 10:42-0400 Body mass index (BMI) [Ratio] 34.2 kg/m2 Dr. Beatriz Escobar MD Work Phone: [facility] 04-28-2025 10:42-0400 Body weight 84.[address] Beatriz Escobar MD Work Phone: [facility] 04-28-2025 10:42-0400 Diastolic blood pressure 71 mm[Hg] Dr. Beatriz Escobar MD Work Phone: [facility] 04-28-2025 10:42-0400 Systolic blood pressure 114 mm[Hg] Dr. Beatriz Escobar MD Work Phone: 3(361)126-631170 [place] [address] 04-18-2025 10:56-0400 Body mass index (BMI) [Ratio] 33.5 kg/m2 Dr. Beatriz Escobar MD Work Phone: 0(562)078-777070 [place] [address] 04-18-2025 10:56-0400 Body weight 83.[address] Beatriz Escobar MD Work Phone: 1(475)669-014470 [place] [address] 04-18-2025 10:56-0400 Diastolic blood pressure 71 mm[Hg] Dr. Beatriz Escobar MD Work Phone: 2(392)006-926070 [place] [address] 04-18-2025 10:56-0400 Systolic blood pressure 106 mm[Hg] Dr. Beatriz Escobar MD Work Phone: 1(630)181-146770 [place] [address] 04-02-2025 18:41-0400 Body temperature 97.9 [degF] Dr. Beatriz Escobar MD Work Phone: 2(444)743-596970 [place] [address] 04-02-2025 18:41-0400 Diastolic blood pressure 52 mm[Hg] Dr. Beatriz Escobar MD Work Phone: 1(570)025-923670 [place] [address] 04-02-2025 18:41-0400 Heart rate 75 /min Dr. Beatriz Escobar MD Work Phone: 2(122)787-461670 [place] [address] 04-02-2025 18:41-0400 Respiratory rate 16 /min Dr. Beatriz Escobar MD Work Phone: 8(004)240-089470 [place] [address] 04-02-2025 18:41-0400 SaO2% (BldA) [Mass fraction] 96 % Dr. Beatriz Escobar MD Work Phone: 5(034)985-398070 [place] [address] 04-02-2025 18:41-0400 Systolic blood pressure 94 mm[Hg] Dr. Beatriz Escobar MD Work Phone: 6(614)160-427870 [place] [address] 04-02-2025 18:35-0400 Body height 157.[address] Beatriz Escobar MD Work Phone: 5(298)811-823470 [place] [address] 04-02-2025 18:35-0400 Body mass index (BMI) [Ratio] 33.4 kg/m2 Dr. Beatriz Escobar MD Work Phone: 0(247)506-361069 [place] [address] 04-02-2025 18:35-0400 Body weight 82.[address] Beatriz Escobar MD Work Phone: 0(345)091-429669 [place] [address] 03-22-2025 10:36-0400 Body height 157.[address] Beatriz Escobar MD Work Phone: 6(520)088-124870 [place] [address] 03-22-2025 10:32-0400 Body mass index (BMI) [Ratio] 32.5 kg/m2 Dr. Beatriz Escobar MD Work Phone: 7(766)960-463870 [place] [address] 03-22-2025 10:32-0400 Body weight 80.[address] Beatriz Escobar MD Work Phone: 0(836)783-866470 [place] [address] 03-22-2025 10:32-0400 Diastolic blood pressure 75 mm[Hg] Dr. Beatriz Escobar MD Work Phone: 0(117)543-757770 [place] [address] 03-22-2025 10:32-0400 Systolic blood pressure 111 mm[Hg] Dr. Beatriz Escobar MD Work Phone: 4(578)865-786670 [place] [address] 02-21-2025 11:01-0400 Body height 157.[address] Beatriz Escobar MD Work Phone: 7(103)485-015270 [place] [address] 02-21-2025 11:01-0400 Body mass index (BMI) [Ratio] 31.1 kg/m2 Dr. Beatriz Escobar MD Work Phone: 3(443)144-423070 [place] [address] 02-21-2025 11:01-0400 Body weight 77.[address] Beatriz Escobar MD Work Phone: 8(833)917-135970 [place] [address] 02-21-2025 11:01-0400 Diastolic blood pressure 68 mm[Hg] Dr. Beatriz Escobar MD Work Phone: 0(353)169-901670 [place] [address] 02-21-2025 11:01-0400 Systolic blood pressure 103 mm[Hg] Dr. Beatriz Escobar MD Work Phone: [facility] 01-25-2025 13:59-0400 Body height 157.[address] Beatriz Escobar MD Work Phone: [facility] 01-25-2025 13:59-0400 Body mass index (BMI) [Ratio] 30.5 kg/m2 Dr. Beatriz Escobar MD Work Phone: [facility] 01-25-2025 13:59-0400 Body weight 75.[address] Beatriz Escobar MD Work Phone: [facility] 01-25-2025 13:59-0400 Diastolic blood pressure 73 mm[Hg] Dr. Beatriz Escobar MD Work Phone: 8(440)951-655800 [address] 01-25-2025 13:59-0400 Systolic blood pressure 111 mm[Hg] Dr. Beatriz Escobar MD Work Phone: 6(868)369-605469 [place] [address] 01-10-2025 13:57-0400 Body height 157.[address] Beatriz Escobar MD Work Phone: [facility] 01-10-2025 13:54-0400 Body mass index (BMI) [Ratio] 30.2 kg/m2 Dr. Beatriz Escobar MD Work Phone: [facility] 01-10-2025 13:54-0400 Body weight 75.[address] Beatriz Escobar MD Work Phone: [facility] 01-10-2025 13:54-0400 Diastolic blood pressure 68 mm[Hg] Dr. Beatriz Escobar MD Work Phone: [facility] 01-10-2025 13:54-0400 Systolic blood pressure 114 mm[Hg] Dr. Beatriz Escobar MD Work Phone: [facility] 12-30-2024 13:27-0400 Body height 157.[address] Beatriz Escobar MD Work Phone: [facility] 12-30-2024 13:27-0400 Body mass index (BMI) [Ratio] 30.5 kg/m2 Dr. Beatriz Escobar MD Work Phone: [facility] 12-30-2024 13:27-0400 Body weight 75.[address] Beatriz Escobar MD Work Phone: [facility] 12-30-2024 13:27-0400 Diastolic blood pressure 72 mm[Hg] Dr. Beatriz Escobar MD Work Phone: 3(445)172-713769 [place] [address] 12-30-2024 13:27-0400 Heart rate 71 /min Dr. Beatriz Escobar MD Work Phone: 4(924)769-129569 [place] [address] 12-30-2024 13:27-0400 SaO2% (BldA) [Mass fraction] 97 % Dr. Beatriz Escobar MD Work Phone: 9(803)257-136700 [address] 12-30-2024 13:27-0400 Systolic blood pressure 107 mm[Hg] Dr. Beatriz Escobar MD Work Phone: [facility] 12-27-2024 09:51-0400 Body height 157.[address] Beatriz Escobar MD Work Phone: [facility] 12-27-2024 09:51-0400 Body mass index (BMI) [Ratio] 30.3 kg/m2 Dr. Beatriz Escobar MD Work Phone: [facility] 12-27-2024 09:51-0400 Body weight 75.[address] Beatriz Escobar MD Work Phone: [facility] 12-27-2024 09:51-0400 Diastolic blood pressure 73 mm[Hg] Dr. Beatriz Escobar MD Work Phone: [facility] 12-27-2024 09:51-0400 Systolic blood pressure 115 mm[Hg] Dr. Beatriz Escobra MD Work Phone: [facility] 11-24-2024 12:59-0400 Body height 157.[address] Beatriz Escobar MD Work Phone: [facility] 11-24-2024 12:59-0400 Body mass index (BMI) [Ratio] 30.8 kg/m2 Dr. Beatriz Escobar MD Work Phone: [facility] 11-24-2024 12:59-0400 Body weight 76.[address] Beatriz Escobar MD Work Phone: [facility] 11-24-2024 12:59-0400 Diastolic blood pressure 74 mm[Hg] Dr. Beatriz Escobar MD Work Phone: [facility] 11-24-2024 12:59-0400 Systolic blood pressure 108 mm[Hg] Dr. Beatriz Escobar MD Work Phone: 0(906)609-404769 [place] [address] 08-23-2024 15:14-0500 Body mass index (BMI) [Ratio] 30.3 kg/m2 Dr. Beatriz Escobar MD Work Phone: 4(173)994-986969 [place] [address] 08-23-2024 15:14-0500 Body weight 75.[address] Beatriz Escobar MD Work Phone: 0(935)864-676769 [place] [address] 08-23-2024 15:14-0500 Diastolic blood pressure 77 mm[Hg] Dr. Beatriz Escobar MD Work Phone: [facility] 08-23-2024 15:14-0500 Systolic blood pressure 119 mm[Hg] Dr. Beatriz Escobar MD Work Phone: 6(614)126-597969 [place] [address] 10-29-2022 14:07-0400 Body height 157.[address] Antony Escobar Work Phone: [facility] 10-29-2022 14:07-0400 Body mass index (BMI) [Ratio] 29.6 kg/m2 Dr. Antony Escobar Work Phone: [facility] 10-29-2022 14:07-0400 Body weight 73.[address] Antony Escobar Work Phone: [facility] 10-29-2022 14:07-0400 Diastolic blood pressure 72 mm[Hg] Dr. Antony Escobar Work Phone: [facility] 10-29-2022 14:07-0400 Systolic blood pressure 111 mm[Hg] Dr. Antony Escobar Work Phone: [facility] 09-06-2022 08:06-0500 Blood Pressure Location HOWARD SUPPAN DPM [facility] 09-06-2022 08:06-0500 Body height 157.5 cm HOWARD SUPPAN DPM [facility] 09-06-2022 08:06-0500 Body weight 68.2 kg HOWARD SUPPAN DPM [facility] 09-06-2022 08:06-0500 Body weight 27.49 kg/m2 HOWARD SUPPAN DPM [facility] 09-06-2022 08:06-0500 Diastolic Blood Pressure Non-Invasive 76 1 HOWARD SUPPAN DPM [facility] 09-06-2022 08:06-0500 Heart rate 73 /min HOWARD SUPPAN DPM [facility] 09-06-2022 08:06-0500 Respiratory rate 20 /min HOWARD SUPPAN DPM [facility] 09-06-2022 08:06-0500 Systolic Blood Pressure Non-Invasive 98 1 HOWARD SUPPAN DPM [facility] 07-11-2022 15:11-0500 Body mass index (BMI) [Ratio] 28.9 kg/m2 Dr. Antony Escobar Work Phone: [facility] 07-11-2022 15:11-0500 Body temperature 95.8 [degF] Dr. Antony Escobar Work Phone: [facility] 07-11-2022 15:11-0500 Body weight 71.[address] Antony Escobar Work Phone: [facility] 07-11-2022 15:11-0500 Diastolic blood pressure 73 mm[Hg] Dr. Antony Escobar Work Phone: [facility] 07-11-2022 15:11-0500 Heart rate 65 /min Dr. Antony Escobar Work Phone: [facility] 07-11-2022 15:11-0500 Respiratory rate 18 /min Dr. Antony Escobar Work Phone: [facility] 07-11-2022 15:11-0500 SaO2% (BldA) [Mass fraction] 97 % Dr. Antony Escobar Work Phone: [facility] 07-11-2022 15:11-0500 Systolic blood pressure 106 mm[Hg] Dr. Antony Escobar Work Phone: [facility] Encounters Encounter Date Encounter Type Care Provider Facility Start: 05-26-2025 ambulatory Beatriz Pro lity:[facility] Start: 05-16-2025 End: 05-16-2025 ambulatory Beatriz Escobar Facility:[facility] Start: 05-09-2025 ambulatory Carmelita Westty:[facility] Start: 05-02-2025 ambulatory Beatriz Benton lity:[facility] Start: 04-28-2025 End: 04-28-2025 ambulatory Beatriz Escobar Facility:[facility] Start: 04-26-2025 End: 04-26-2025 ambulatory Manda Sycamore Facility:[facility] Start: 04-18-2025 End: 04-18-[address] Beatriz Escobar MD Work Phone: [facility][1] Start: 04-18-2025 End: 04-18-[address] Carmelita Weeks DO [facility][1] Work Phone: Start: 04-18-2025 End: 04-18-2025 ambulatory Carmelita Weeks Facility:[facility] Start: 04-03-2025 ambulatory Beatriz Benton lity:[facility] Start: 04-03-2025 Non-patient / Non-visit Dr. William knight MD -[facility] Work Phone: Start: 04-02-2025 End: 04-02-[address] Beatriz Escobar MD Work Phone: -[facility] Start: 04-02-2025 End: 04-02-[address] William Ceballos MD -[facility] Work Phone: Start: 03-22-2025 End: 03-22-2025 Patient encounter procedure Manda GAYTAN -[facility] Work Phone: Start: 03-22-2025 End: 03-22-[address] Beatriz Escobar MD Work Phone: -[facility] Start: 03-01-2025 End: 03-01-2025 ambulatory NEWTONPAMELA Dae [facility] Start: 02-21-2025 End: 02-21-2025 Patient encounter procedure Lyssa Aguila CNM -[facility] Work Phone: Start: 02-21-2025 End: 02-21-[address] Beatriz Escobar MD Work Phone: -[facility] Start: 02-21-2025 End: 02-21-2025 ambulatory Beatriz Escobar Facility:[facility] Start: 02-08-2025 End: 02-08-2025 ambulatory MANDA AGUIRRE [facility] Start: 01-25-2025 End: 01-25-[address] Gaby Trimble MD -[facility] Work Phone: Start: 01-25-2025 End: 01-25-2025 ambulatory Dr. Beatriz Escobar MD Work Phone: -[facility] Start: 01-17-2025 End: 01-17-[address] Beatriz Escobar MD Work Phone: -[facility] Start: 01-17-2025 End: 01-17-[address] Denis Galdamez MD -[facility] Start: 01-17-2025 End: 01-17-2025 ambulatory Denis Galdamez Facility:[facility] Start: 01-10-2025 End: 01-10-2025 Patient encounter procedure Manda Aguirre NP-C -[facility] Work Phone: Start: 01-10-2025 End: 01-10-[address] Beatriz Escobar MD Work Phone: -[facility] Start: 12-30-2024 End: 12-30-[address] Denis Galdamez MD -[facility] Work Phone: Start: 12-30-2024 End: 12-30-[address] Beatriz Escobar MD Work Phone: [facility] Work Phone: Start: 12-27-2024 End: 12-27-2024 Patient encounter procedure Manda Aguirre NP-C -[facility] Work Phone: Start: 12-27-2024 End: 12-27-[address] Beatriz Escobar MD Work Phone: [facility] Work Phone: Start: 12-27-2024 End: 12-27-2024 ambulatory Beatriz Escobar Facility:[facility] Start: 11-24-2024 End: 11-24-[address] Beatriz Escobar MD Work Phone: [facility] Work Phone: Start: 11-24-2024 End: 11-24-2024 Patient encounter procedure Lyssa Aguila CNM -[facility] Work Phone: Start: 11-24-2024 End: 11-24-2024 Patient encounter procedure Lyssa Aguila CNM -[facility] Work Phone: Start: 11-24-2024 End: 11-24-[address] Beatriz Escobar MD Work Phone: [facility] Work Phone: Start: 11-24-2024 End: 11-24-2024 ambulatory [facility] Facility:[facility] Start: 08-25-2024 End: 08-25-2024 Patient encounter procedure Lyssa Aguila CNM -[facility] Start: 08-25-2024 End: 08-25-2024 ambulatory [facility] Facility:[facility] Start: 08-23-2024 End: 08-23-2024 Patient encounter procedure Lyssa WARD -[facility] Work Phone: Start: 08-23-2024 End: 08-23-2024 ambulatory [facility] Facility:[facility] Start: 08-23-2024 End: 08-23-2024 Patient encounter procedure Lyssa Aguila CNM -[facility] Start: 08-23-2024 End: 08-23-2024 ambulatory [place] [facility] Facility:[facility] Start: 03-11-2023 End: 03-11-2023 ambulatory [facility] Work Phone: Start: 03-11-2023 End: 03-11-2023 Patient encounter procedure [facility]atory, [facility] Start: 10-29-2022 End: 10-29-[address] Antony Escobar Work Phone: [facility] Work Phone: Start: 10-29-2022 End: 10-29-[address] Antony Escobar Work Phone: [facility]-Laboratory, Specimen Start: 10-29-2022 End: 10-29-[address] Antony Escobar Work Phone: [facility] Start: 09-19-2022 End: 09-19-2022 ambulatory HOWARD N ALAINA DPM Facility:B Start: 09-06-2022 End: 09-07-2022 ambulatory HOWARD N SUPPRADHA DPM Facility:[facility] Start: 09-06-2022 End: 09-06-2022 Admission to [facility] HOWARD Sears KAITRADHA DPM [facility] Start: 07-11-2022 End: 07-11-[address] Antony Escobar Work Phone: [facility] Start: 03-15-2022 End: 03-15-2022 ambulatory [facility] Work Phone: Start: 03-15-2022 End: 03-15-2022 Patient encounter procedure [facility] Start: 03-14-2022 End: 03-14-2022 ambulatory [facility] Work Phone: Start: 03-14-2022 End: 03-14-2022 Patient encounter procedure [facility]-Ultrasound, [facility] Procedures Date Procedure Procedure Detail Performing Clinician Start: 04-18-2025 Serologic test for syphilis Dr. Beatriz Escobar MD Work Phone: Start: 12-27-[address] Broderick Escobar MD Work Phone: Start: 12-27-2024 Hepatitis C antibody measurement Dr. Beatriz Escobar MD Work Phone: Comment on above: Reactive: Presumptiv e evidence of antibodies to HCV. Follow CDC recommendations for supplemental testing.Non-Reactive: Antibodies to HCV were not detected; does not exclude the possibility of exposure to HCVReactive Results are presumptive evidence of antibodies to HCV. Follow CDC recommendations for supplemental testing.Order confirmation testing: HCV Quant by PCR testing - HCVPCR #[id number] Non Reactive: < 0.8 Equivocal: >/= 0.8 to < 1.0 Reactive: >/= 1.0The CDC requires that a reactive/equivocal HCV antibody result be sent out for confirmation. HCV Quant by PCR testing. Start: 12-27-[address] Ace Escobar MD Work Phone: Start: 12-27-[address] Beatriz Escobar MD Work Phone: Comment on above: Antibody Result: Int erpretationNon-Reactive: Non- ImmuneReactive: ImmuneThe following results were obtained with the [employer] Rubella IgG assay. Results from assays of other manufacturers cannot be used interchangeably. Start: 12-27-2024 Serologic test for syphilis Dr. Beatriz Escobar MD Work Phone: Start: 11-24-[address] Broderick Escobar MD Work Phone: Start: 03-14-2022 US scan of thyroid Structure of wisdom tooth (body structure) HOWARD FOLEY DP Plan of Treatment Date Care Activity Detail Author Start: 04-28-2025 [facility] Start: 04-28-2025 End: 04-28-2025 Patient encounter procedure Advanced maternal age (AMA) in -[facility] Work Phone: Start: 04-26-2025 Patient encounter procedure [facility] -Laboratory Work Phone: Start: 04-02-2025 Nonstress test [facility] Start: 04-02-2025 Obstetric monitoring [facility] Start: 04-02-2025 Vital signs measurements [facility] Start: 04-02-2025 [facility] Start: 04-02-2025 Patient discharge [facility] Start: 03-22-2025 Measurement of glucose 2 hours after glucose challenge for glucose tolerance test [facility] Start: 03-22-2025 Serologic test for syphilis [facility] Start: 03-22-2025 [facility] Start: 02-21-2025 CBC W Auto Differential panel - Blood [facility] Start: 01-10-2025 [facility] Start: 12-27-2024 CBC W Auto Differential panel - Blood [facility] Start: 12-27-2024 Comprehensive metabolic 1999 panel - Serum or Plasma [facility] Start: 12-27-2024 Hemoglobin A1c/Hemoglobin.total in Blood [facility] Start: 12-27-2024 Hepatitis C antibody measurement [facility] Start: 12-27-2024 Rubella IgG measurement [facility] Start: 12-27-2024 Serologic test for syphilis [facility] Start: 12-27-2024 Thyroid stimulating hormone measurement [facility] Start: 12-27-2024 [facility] Start: 12-27-2024 Procedure [facility] Start: 10-29-2022 Liquid based cervical cytology screening [facility] Alanine aminotransfe rase [Enzymatic activity/volume] in Serum or Plasma [facility] Albumin [Mass/volume ] in Serum or Plasma [facility] Alkaline phosphatase [Enzymatic activity/volume] in Serum or Plasma [facility] Anion gap in Serum or Plasma [facility] Bilirubin, total measurement [facility] BUN/Creatinine ratio [facility] Calcium [Mass/volume ] in Serum or Plasma [facility] Carbon dioxide, tota l [Moles/volume] in Central venous blood [facility] CBC W Auto Different ial panel - Blood [facility] CBC W Auto Different ial panel - Blood [facility] Chlamydia deoxyribon ucleic acid detection [facility] Comprehensive metabo lic 1999 panel - Serum or Plasma [facility] Creatinine [Mass/vol ume] in Serum or Plasma [facility] Erythrocyte mean cor puscular volume determination [facility] Erythrocyte mean cor puscular volume determination [facility] Glucose [Mass/volume ] in Serum or Plasma [facility] Hematocrit [Volume F raction] of Blood [facility] Hematocrit [Volume F raction] of Blood [facility] Hemoglobin [Mass/vol ume] in Blood [facility] Hemoglobin [Mass/vol ume] in Blood [facility] Hemoglobin A1c/Hemoglobin.total in Blood [facility] Hepatitis B virus elmore rface Ag [Presence] in Serum [facility] Hepatitis C antibody measurement [facility] Leukocytes [#/volume ] in Blood [facility] Leukocytes [#/volume ] in Blood [facility] Mean corpuscular hem oglobin concentration determination [facility] Mean corpuscular hem oglobin concentration determination [facility] Mean corpuscular hem oglobin determination [facility] Mean corpuscular hem oglobin determination [facility] Measurement of renal function [facility] Neutrophil count [facility] Neutrophil count [facility] Neutrophil percent differential count [facility] Neutrophil percent differential count [facility] Path report.final Dx Spec [facility] Patient Education Kick Counts ED False Labor OB Triage: Return to Hospital or Notify Physician if you Experience: [facility] Work Phone: Platelets [#/volume] in Blood [facility] Platelets [#/volume] in Blood [facility] Potassium measurement [facility] Protein/Creatinine [ Ratio] in Urine [facility] Red blood cell count [facility] Red blood cell count [facility] Red cell distributio n width determination [facility] Red cell distributio n width determination [facility] Rubella IgG measurement [facility] Serologic test for syphilis [facility] Serum chloride measurement [facility] Sodium measurement [facility] T4 free measurement [facility] T4 free measurement [facility] T4 free measurement [facility] Thyroid stimulating hormone measurement [facility] Thyroid stimulating hormone measurement [facility] Thyroid stimulating hormone measurement [facility] Thyroid stimulating hormone measurement [facility] Thyroperoxidase Ab [Units/volume] in Serum or Plasma [facility] Total protein measurement [facility] Triiodothyronine, fr ee measurement [facility] Triiodothyronine, fr ee measurement [facility] Triiodothyronine, fr ee measurement [facility] Urea nitrogen [Mass/ volume] in Serum or Plasma [facility] [place] Date Payer Category Payer Self-pay [id number] 2024 Unknown [id number] 2022 Unknown [id number] 1990 Unknown [id number] [id number] 1990 Unknown [id number] 2.16.840.1.381936.3.579.2.627 1990 Unknown [id number] 2.16.840.1.098679.3.579.2.479 1990 Unknown [id number] 2.16.840.1.341274.3.579.2.479 Unknown [facility] [id number] Unknown [id number] 2.16.840.1.801607.3.579.2.462 Unknown [id number] 2.840.1.438155.3.579.2.462 Unknown [id number] 2.16840.1.440866.3.579.2.462 Unknown [id number] 2.16840.1.317914.3.579.2.462 Unknown [id number] 2.16840.1.341786.3.579.2.462 Unknown [id number] 2.16840.1.447243.3.579.2.462 Unknown [id number] 2.16840.1.338887.3.579.2.462 Unknown [id number] 2.16840.1.474046.3.579.2.462 Unknown [id number] 2.16.840.1.018479.3.579.2.462 Unknown [id number] 2.16840.1.055164.3.579.2.462 Unknown [id number] 2.16.840.1.012431.3.579.2.462 Unknown [id number] 2.16840.1.666552.3.579.2.462 Unknown [id number] 2.16.840.1.207374.3.579.2.462 Unknown [id number] 2.16.840.1.432886.3.579.2.462 Unknown [id number] 2.16.840.1.102630.3.579.2.462 Unknown [id number] 2.16.840.1.106192.3.579.2.462 Unknown [id number] 2.16.840.1.430820.3.579.2.462 Unknown [id number] 2.16.840.1.918159.3.579.2.462 Unknown [id number] 2.16.840.1.694444.3.579.2.462 Unknown [id number] 2.16.840.1.499499.3.579.2.462 Unknown [id number] 2.16.840.1.674759.3.579.2.462 Unknown [id number] 2.16.840.1.576618.3.579.2.462 Unknown [id number] 2.16.840.1.385229.3.579.2.462 Unknown [id number] 2.16.840.1.409573.3.579.2.462 Social History Date Type Detail Facility Start: 09-19-2021 End: 10-29-2022 Tobacco smoking status PRIS Unknown if ever smoked [facility] Start: 1990 Sex Assigned At Female [facility] Start: 09-06-2022 End: 11-12-2024 Tobacco smoking status Never smoked tobacco (finding) [facility] Sex Female [facility] Functional Status Date Assessment Result Facility 09-06-2022 Functional Status Sensory Deficits None [facility] Clinical Notes 09-11-2020 to 04-18-2025 Note Date & Type Note Facility 04-18-2025 Progress note [facility] 03-22-2025 Progress note [facility] 01-10-2025 Evaluation note Diagnosis Onset Date Resolution Advanced maternal age (AMA) in acute January 10 1:49pm History of miscarriage, currently acute January 10 1:49pm Needle phobia acute January 10 1:49pm Obesity affecting acute January 10, 2025 1 :49pm acute January 10, 2025 1:49pm Supervision of high-risk acute January 10 1:49pm UTI in acute January 1:49pm Hot thyroid nodule chronic January 102024 1:49pm Abnormal thyroid stimulating hormone (TSH) level resolved January 10, 2025 1 :49pm Amenorrhea resolved January 10, 2025 1:49pm History of anemia resolved January 1:49pm History of colposcopy resolved Jan 1:49pm HPV test positive resolved January 1:49pm Hx of varicose veins of lower extremity resolved January 10, 2025 1 :49pm Nodular goiter resolved January 10, 2025 1:49pm Thyroid nodule resolved January 10, 2025 1:49pm Advanced maternal age (AMA) in acute January 25 1:51pm History of miscarriage, currently acute January 25 1:51pm Needle phobia acute January 25, 2025 1:51pm Obesity affecting acute January 25, 2025 1:51pm acute January 25 1:51pm Supervision of high-risk acute January 25 025 1:51pm UTI in acute January 1:51pm Hot thyroid nodule chronic January 052024 1:51pm Abnormal thyroid stimulating hormone (TSH) level resolved January 25, 2025 1:51pm History of anemia resolved January 252024 1:51pm Hx of varicose veins of lower extremity resolved January 25, 2025 1:51pm Advanced maternal age (AMA) in acute February 21, 2025 10:57am History of miscarriage, currently acute February 21, 2025 10:57am History of pre-eclampsia in prior , currently acute February 21 10:57am Needle phobia acute February 10:57am Obesity affecting acute February 21 10:57am acute [place] [address], 2 025 10:57am Supervision of high-risk acute February 21, 2025 10:57am UTI in acute February 042024 10:57am Hot thyroid nodule chronic February 21, 2025 10:57am Advanced maternal age (AMA) in acute March 10:18am History of miscarriage, currently acute March 10:18am History of pre-eclampsia in prior , currently acute March 22, 2025 10:18am Needle phobia acute March 072024 10:18am Obesity affecting acute March 22, 2025 10:18am acute March 10:18am Supervision of high-risk acute March 222024 10:18am UTI in acute Marembe r 2024 10:18am Hot thyroid nodule chronic Septem 2024 10:18am Trauma during acute S eptember 2024 6:20pm Advanced maternal age (AMA) in acute April 18, 2025 10:54am History of miscarriage, currently acute April 18, 2025 10:54am History of pre-eclampsia in prior , currently acute April 18 10:54am Needle phobia acute April 10:54am Obesity affecting acute April 18 10:54am acute April 18, 2025 10:54am Supervision of high-risk acute April 10:54am Trauma during acute O ctober 2024 10:54am UTI in acute April 18, 2025 10:54am Hot thyroid nodule chronic Octobe r 2024 10:54am Advanced maternal age (AMA) in acute April 28, 2025 10:40am History of miscarriage, currently acute April 28, 2025 10:40am History of pre-eclampsia in prior , currently acute April 28 10:40am Impaired glucose tolerance in acute April 072024 10:40am Needle phobia acute April 10:40am Obesity affecting acute April 28 10:40am acute April 28, 2025 10:40am Supervision of high-risk acute April 10:40am Trauma during acute O ctober 2024 10:40am UTI in acute April 28, 2025 10:40am Hot thyroid nodule chronic Octobe r 2024 10:40am [facility] Work Phone: 1(231) 995-794706-23-2025 Evaluation note* Diagnosis Onset Date Resolution Status Admit Date Advanced maternal age (AMA) in acute December 27, 2024 9:40am History of miscarriage, currently acute December 27 9:40am Needle phobia acute December 27, 2024 9:40am Obesity affecting acute December 27, 2024 9:40am acute December 27 9:40am Supervision of high-risk acute December 27, 2024 9:40am UTI in acute December 9:40am History of anemia resolved December 272024 9:40am Hx of varicose veins of lower extremity resolved December 27, 2024 9:40am Nodular goiter resolved December 27, 2024 9:40am Hot thyroid nodule chronic December 062024 1:26pm Advanced maternal age (AMA) in acute January 10, 2025 1 :49pm History of miscarriage, currently acute January 10 1:49pm Needle phobia acute January 10, 1:49pm Obesity affecting acute January 10, 2025 1:49pm acute January 10, 2025 1:49pm Supervision of high-risk acute January 10, 2025 1 :49pm UTI in acute January 1:49pm Hot thyroid nodule chronic January 102024 1:49pm Abnormal thyroid stimulating hormone (TSH) level resolved January 10 1:49pm Amenorrhea resolved January 10, 2025 1:49pm History of anemia resolved January 1:49pm History of colposcopy resolved Jan 1:49pm HPV test positive resolved January 1:49pm Hx of varicose veins of lower extremity resolved January 10, 2025 1 :49pm Nodular goiter resolved January 10, 2025 1:49pm Thyroid nodule resolved January 10, 2025 1:49pm Advanced maternal age (AMA) in acute January 25, 2025 1:51pm History of miscarriage, currently acute January 25 1:51pm Needle phobia acute January 25, 2025 1:51pm Obesity affecting acute January 25, 2025 1:51pm acute January 25 1:51pm Supervision of high-risk acute January 25, 2025 1:51pm UTI in acute January 1:51pm Hot thyroid nodule chronic January 052024 1:51pm Abnormal thyroid stimulating hormone (TSH) level resolved January 25 1:51pm History of anemia resolved January 252024 1:51pm Hx of varicose veins of lower extremity resolved January 25, 2025 1:51pm Advanced maternal age (AMA) in acute February 21 10:57am History of miscarriage, currently acute February 21, 2025 10:57am History of pre-eclampsia in prior , currently acute February 21 10:57am Needle phobia acute February 10:57am Obesity affecting acute February 21, 2025 10:57am acute February 21, 025 10:57am Supervision of high-risk acute February 21 10:57am UTI in acute February 042024 10:57am Hot thyroid nodule chronic February 21, 2025 10:57am Advanced maternal age (AMA) in acute March 22, 2025 10:18am History of miscarriage, currently acute March 10:18am History of pre-eclampsia in prior , currently acute March 22, 2025 10:18am Needle phobia acute March 072024 10:18am Obesity affecting acute March 22, 2025 10:18am acute March 10:18am Supervision of high-risk acute March 22, 2025 10:18am UTI in acute r 2024 10:18am Hot thyroid nodule chronic Sept2024 10:18am Trauma during acute S eptember 2024 6:20pm [facility] Work Phone: 1(919) 790-159005-21-2025 Evaluation note* Diagnosis Onset Date Resolution Status Admit Date Advanced maternal age (AMA) in acute November [...] Advanced maternal age (AMA) in acute December 27, 2024 9:40am Amenorrhea acute December 27 9:40am History of anemia acute December 272024 9:40am History of colposcopy acute Dec 9:40am History of miscarriage, currently acute December 27 9:40am HPV test positive acute December 272024 9:40am Hx of varicose veins of lowe r extremity acute December 27, 2024 9:40am Needle phobia acute December 27, 2024 9:40am Obesity affecting acute December 27, 2024 9:40am acute December 27 9:40am Supervision of high-risk acute December 27, 2024 9:40am Thyroid nodule acute December 27, 2024 9:40am Nodular goiter chronic December 27, 2024 9:40am [facility] Work Phone: 1(510) 782-535205-21-2025 Evaluation note* Diagnosis Onset Date Resolution Status Admit Date Advanced maternal age (AMA) in acute November [...] 1 2:49pm Needle phobia acute November 24, 025 12:49pm Obesity affecting acute November 24, 2024 12:49pm acute November 24, 2024 12:49pm Supervision of high-risk acute November 24, 2024 1 2:49pm Thyroid nodule acute November 24, 2024 12:49pm Nodular goiter chronic November 24, 2024 12:49pm Advanced maternal age (AMA) in acute December 27, 2024 9:40am History of anemia acute December 272024 9:40am History of miscarriage, currently acute December 27 9:40am Hx of varicose veins of lowe r extremity acute December 27, 2024 9:40am Needle phobia acute December 27, 2024 9:40am Obesity affecting acute December 27, 2024 9:40am acute December 27 9:40am Supervision of high-risk acute December 27, 2024 9:40am UTI in acute December 9:40am Nodular goiter chronic December 27, 2024 9:40am Hot thyroid nodule acute December 062024 1:26pm [facility] Work Phone: 1(941) 359-822805-21-2025 Evaluation note* Diagnosis Onset Date Resolution Status Admit Date Advanced maternal age (AMA) in acute November [...] Advanced maternal age (AMA) in acute December 27, 2024 9:40am History of anemia acute December 272024 9:40am History of miscarriage, currently acute December 27 9:40am Hx of varicose veins of lowe r extremity acute December 27, 2024 9:40am Needle phobia acute December 27, 2024 9:40am Obesity affecting acute December 27, 2024 9:40am acute December 27 9:40am Supervision of high-risk acute December 27, 2024 9:40am UTI in acute December 9:40am Nodular goiter chronic December 27, 2024 9:40am Hot thyroid nodule chronic December 062024 1:26pm Abnormal thyroid stimulating hormone (TSH) level acute January 10 1:49pm Advanced maternal age (AMA) in acute January 10, 2025 1 :49pm Amenorrhea acute January 10, 2025 1:49pm History of anemia acute January 1:49pm History of colposcopy acute Jan 1:49pm History of miscarriage, currently acute January 10 1:49pm HPV test positive acute January 1:49pm Hx of varicose veins of lowe r extremity acute January 10, 2025 1 :49pm Needle phobia acute January 10, 2 025 1:49pm Obesity affecting acute January 10, 2025 1:49pm acute January 10, 2025 1:49pm Supervision of high-risk acute January 10, 2025 1 :49pm Thyroid nodule acute January 10, 2025 1:49pm UTI in acute January 1:49pm Hot thyroid nodule chronic January 102024 1:49pm Nodular goiter chronic January 10, 2025 1:49pm [facility] Work Phone: 1(893) 405-934405-21-2025 Evaluation note* Diagnosis Onset Date Resolution Status Admit Date Advanced maternal age (AMA) in acute November 24, 2024 1 2:49pm History of miscarriage, currently acute November 24 12:49pm Needle phobia acute November 24, 2 025 12:49pm Obesity affecting acute November 24, 2024 12:49pm acute November 24, 2024 12:49pm Supervision of high-risk acute November 24, 2024 1 2:49pm Amenorrhea resolved November 24, 2024 12:49pm History of anemia resolved November 12:49pm History of colposcopy resolved November 24, 2024 12:49pm HPV test positive resolved November 12:49pm Hx of varicose veins of lowe r extremity resolved November 24, 2024 1 2:49pm Nodular goiter resolved November 24, 2024 12:49pm Thyroid nodule resolved November 24, 2024 12:49pm Advanced maternal age (AMA) in acute December 27, 2024 9:40am History of miscarriage, currently acute December 27 9:40am Needle phobia acute December 27, 2024 9:40am Obesity affecting acute December 27, 2024 9:40am acute December 27 9:40am Supervision of high-risk acute December 27, 2024 9:40am UTI in acute December 9:40am History of anemia resolved December 272024 9:40am Hx of varicose veins of lowe r extremity resolved December 27, 2024 9:40am Nodular goiter resolved December 27, 2024 9:40am Hot thyroid nodule chronic December 062024 1:26pm Advanced maternal age (AMA) in acute January 10, 2025 1 :49pm History of miscarriage, currently acute January 10 1:49pm Needle phobia acute January 10, 2 025 1:49pm Obesity affecting acute January 10, 2025 1:49pm acute January 10, 2025 1:49pm Supervision of high-risk acute January 10, 2025 1 :49pm UTI in acute January 1:49pm Hot thyroid nodule chronic January 102024 1:49pm Abnormal thyroid stimulating hormone (TSH) level resolved January 10 1:49pm Amenorrhea resolved January 10, 2025 1:49pm History of anemia resolved January 1:49pm History of colposcopy resolved Jan 1:49pm HPV test positive resolved January 1:49pm Hx of varicose veins of lowe r extremity resolved January 10, 2025 1 :49pm Nodular goiter resolved January 10, 2025 1:49pm Thyroid nodule resolved January 10, 2025 1:49pm Advanced maternal age (AMA) in acute January 25, 2025 1:51pm History of miscarriage, currently acute January 25 1:51pm Needle phobia acute January 25, 2025 1:51pm Obesity affecting acute January 25, 2025 1:51pm acute January 25 1:51pm Supervision of high-risk acute January 25, 2025 1:51pm UTI in acute January 1:51pm Hot thyroid nodule chronic January 052024 1:51pm Abnormal thyroid stimulating hormone (TSH) level resolved January 25, 025 1:51pm Amenorrhea resolved January 25 1:51pm History of anemia resolved January 252024 1:51pm History of colposcopy resolved Jan 1:51pm HPV test positive resolved January 252024 1:51pm Hx of varicose veins of lowe r extremity resolved January 25, 2025 1:51pm Nodular goiter resolved January 25, 2025 1:51pm Thyroid nodule resolved January 25, 2025 1:51pm [facility] Work Phone: 1(404) 459-779605-21-2025 Evaluation note* Diagnosis Onset Date Resolution Status Admit Date Advanced maternal age (AMA) in acute November 24, 2024 1 2:49pm History of miscarriage, currently acute November 24 12:49pm Needle phobia acute November 24, 2 025 12:49pm Obesity affecting acute November 24, 2024 12:49pm acute November 24, 2024 12:49pm Supervision of high-risk acute November 24, 2024 1 2:49pm Amenorrhea resolved November 24, 2024 12:49pm History of anemia resolved November 12:49pm History of colposcopy resolved November 24, 2024 12:49pm HPV test positive resolved November 12:49pm Hx of varicose veins of lowe r extremity resolved November 24, 2024 1 2:49pm Nodular goiter resolved November 24, 2024 12:49pm Thyroid nodule resolved November 24, 2024 12:49pm Advanced maternal age (AMA) in acute December 27, 2024 9:40am History of miscarriage, currently acute December 27 9:40am Needle phobia acute December 27, 2024 9:40am Obesity affecting acute December 27, 2024 9:40am acute December 27 9:40am Supervision of high-risk acute December 27, 2024 9:40am UTI in acute December 9:40am History of anemia resolved December 272024 9:40am Hx of varicose veins of lowe r extremity resolved December 27, 2024 9:40am Nodular goiter resolved December 27, 2024 9:40am Hot thyroid nodule chronic December 062024 1:26pm Advanced maternal age (AMA) in acute January 10, 2025 1 :49pm History of miscarriage, currently acute January 10 1:49pm Needle phobia acute January 10, 1:49pm Obesity affecting acute January 10, 2025 1:49pm acute January 10, 2025 1:49pm Supervision of high-risk acute January 10, 2025 1 :49pm UTI in acute January 1:49pm Hot thyroid nodule chronic January 102024 1:49pm Abnormal thyroid stimulating hormone (TSH) level resolved January 10 1:49pm Amenorrhea resolved January 10, 2025 1:49pm History of anemia resolved January 1:49pm History of colposcopy resolved Jan 1:49pm HPV test positive resolved January 1:49pm Hx of varicose veins of lowe r extremity resolved January 10, 2025 1 :49pm Nodular goiter resolved January 10, 2025 1:49pm Thyroid nodule resolved January 10, 2025 1:49pm Advanced maternal age (AMA) in acute January 25, 2025 1:51pm History of miscarriage, currently acute January 25 1:51pm Needle phobia acute January 25, 2025 1:51pm Obesity affecting acute January 25, 2025 1:51pm acute January 25 1:51pm Supervision of high-risk acute January 25, 2025 1:51pm UTI in acute January 1:51pm Hot thyroid nodule chronic January 052024 1:51pm Abnormal thyroid stimulating hormone (TSH) level resolved January 25, 2 025 1:51pm History of anemia resolved January 252024 1:51pm Hx of varicose veins of lowe r extremity resolved January 25, 2025 1:51pm Advanced maternal age (AMA) in acute February 21 10:57am History of miscarriage, currently acute February 21, 2025 10:57am History of pre-eclampsia in prior , currently acute February 21 10:57am Needle phobia acute February 10:57am Obesity affecting acute February 21, 2025 10:57am acute February 21, 2 025 10:57am Supervision of high-risk acute February 21 10:57am UTI in acute February 042024 10:57am Hot thyroid nodule chronic February 21, 2025 10:57am [facility] Work Phone: 1(849) 666-858205-21-2025 Evaluation note* Diagnosis Onset Date Resolution Status Admit Date Advanced maternal age (AMA) in acute November 24, 2024 1 2:49pm History of miscarriage, currently acute November 24 12:49pm Needle phobia acute November 24, 2 025 12:49pm Obesity affecting acute November 24, 2024 12:49pm acute November 24, 2024 12:49pm Supervision of high-risk acute November 24, 2024 1 2:49pm Amenorrhea resolved November 24, 2024 12:49pm History of anemia resolved November 12:49pm History of colposcopy resolved November 24, 2024 12:49pm HPV test positive resolved November 12:49pm Hx of varicose veins of lower extremity resolved November 24, 2024 1 2:49pm Nodular goiter resolved November 24, 2024 12:49pm Thyroid nodule resolved November 24, 2024 12:49pm Advanced maternal age (AMA) in acute December 27, 2024 9:40am History of miscarriage, currently acute December 27 9:40am Needle phobia acute December 27, 2024 9:40am Obesity affecting acute December 27, 2024 9:40am acute December 27 9:40am Supervision of high-risk acute December 27, 2024 9:40am UTI in acute December 9:40am History of anemia resolved December 272024 9:40am Hx of varicose veins of lower extremity resolved December 27, 2024 9:40am Nodular goiter resolved December 27, 2024 9:40am Hot thyroid nodule chronic December 062024 1:26pm Advanced maternal age (AMA) in acute January 10, 2025 1 :49pm History of miscarriage, currently acute January 10 1:49pm Needle phobia acute January 10 1:49pm Obesity affecting acute January 10, 2025 1:49pm acute January 10, 2025 1:49pm Supervision of high-risk acute January 10, 2025 1 :49pm UTI in acute January 1:49pm Hot thyroid nodule chronic January 102024 1:49pm Abnormal thyroid stimulating hormone (TSH) level resolved January 10 1:49pm Amenorrhea resolved January 10, 2025 1:49pm History of anemia resolved January 1:49pm History of colposcopy resolved Jan 1:49pm HPV test positive resolved January 1:49pm Hx of varicose veins of lower extremity resolved January 10, 2025 1 :49pm Nodular goiter resolved January 10, 2025 1:49pm Thyroid nodule resolved January 10, 2025 1:49pm Advanced maternal age (AMA) in acute January 25, 2025 1:51pm History of miscarriage, currently acute January 25 1:51pm Needle phobia acute January 25, 2025 1:51pm Obesity affecting acute January 25, 2025 1:51pm acute January 25 1:51pm Supervision of high-risk acute January 25, 2025 1:51pm UTI in acute January 1:51pm Hot thyroid nodule chronic January 052024 1:51pm Abnormal thyroid stimulating hormone (TSH) level resolved January 25 025 1:51pm History of anemia resolved January 252024 1:51pm Hx of varicose veins of lower extremity resolved January 25, 2025 1:51pm Advanced maternal age (AMA) in acute February 21 10:57am History of miscarriage, currently acute February 21, 2025 10:57am History of pre-eclampsia in prior , currently acute February 21 10:57am Needle phobia acute February 10:57am Obesity affecting acute February 21, 2025 10:57am acute February 21, 025 10:57am Supervision of high-risk acute February 21 10:57am UTI in acute February 042024 10:57am Hot thyroid nodule chronic February 21, 2025 10:57am Advanced maternal age (AMA) in acute March 22, 2025 10:18am History of miscarriage, currently acute March 10:18am History of pre-eclampsia in prior , currently acute March 22, 2025 10:18am Needle phobia acute March 072024 10:18am Obesity affecting acute March 22, 2025 10:18am acute March 10:18am Supervision of high-risk acute March 22, 2025 10:18am UTI in acute 2024 10:18am Hot thyroid nodule chronic 2024 10:18am [facility] Work Phone: 1(730) 884-457505-21-2025 Progress [facility] [address] [place] [address], [address] [place], [place] [id number] OFFICE VISIT Date of Service: 11/24/24 MR#: [id number] Acct: [id number] Name: DEMARCUS ABAD Rep #: [id number] : 1990 Provider: SULLY Aguila Age/Sex: 34/F [place] [facility] [place]: Signed Intake Vital Signs 08/23/24 15:14 11/24/24 12:59 Height 5 ft 2 in 5 ft 2 in Weight: 166 lb 168 lb 8 oz BMI 30.3 30.8 BP 119/77 108/74 Intake Visit Reasons: NOB LMP 09/27 Chief Complaint: 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 Is patient in pain?: No Allergies Penicillins Allergy (Unknown, Verified 11/24/24 12:57) Unknown Medications ?Medication ?Instructions ?Recorded ?Confirmed ?Type ferrous sulfate 325 mg (65 mg 325 mg PO DAILY 09/05/23 11/24/24 History iron) tablet (Feosol) multivit-min no.71-iron fum 28 cap PO 11/12/24 5 History mg-folate no.1 1 mg-dha 300 mg capsule (PNV-Lowell) Last Menstrual Period: 09/27/24 : Yes PFSH PFSH Medical History Hx of varicose veins of lower extremity Depression Nodular goiter HPV (human papilloma virus) infection Thyroid disorder Pre-eclampsia Abnormal glucose Anemia Surgical History History of bunionectomy of right great toe [place] teeth extracted History of colposcopy Family History Mother Hypertension Father Diabetes Aunt Thyroid disorder Maternal- unknown type Social History adopted: No household members: spouse and children housing: house number of children: 2 service: No current occupational status: unemployed current occupation: 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 Date Name GA/Weeks Outcome Route Bth Weight Infant Gen Labor Lgth Anesthesia Del Locatn Provider FOB Unknown 08/2024 6 spontaneous 04/30/08 Shlomo 36 live - 6# Male epidural [facility] Taye 08/08/21 Emalie 36 live - 6lbs 14oz Female ep idural [facility] [place] Delivery Date: 04/30/08 Last Updated by: Manda Aguirre MEDICAL ASSISTANT SECRETARY, MEDICAL ASSISTANT SECRETARY-C Induced to preeclampsia, teen Delivery Date: 08/08/21 [...] Thyroid dysfunction (Thyroid nodule), Drug/latex allergies/reactions (PCN), Hog Trader surgery (Colposcopy), Operations/hospitalizations (wisdom teeth, bunionectomy-right), History [...] Immediate Larc, Signs and Symptoms of Preeclampsia, Feeding Yes , [place] Education and Family Medical Leave or Disability [...] Acute Comment: , ROSE 07/04/25, [place] [place], Medardo (2) : Status: Acute Qualifiers: Weeks of [...] (13) History of colposcopy: Status: Acute Comment: [facility] pap 04/2020 pos HPV, neg pap. Neg colp wo bx per RR at [facility] 05/2020 Orders: Orders CBC W/Diff, Automated 11/12/24 O09.90 - Supervision of high risk , unspecified, unspecified trimester Type & Screen 11/12/24 O.90 - Supervision of high risk , unspecified, [...] , unspecified, unspecified trimester Syphilis Antibodies 11/12/24 O.90 - Supervision of high risk , unspecified, unspecified trimester Chlamydia/GC GEETA aptima 11/12/24 O.90 - Supervision of high risk , unspecified, unspecified trimester HIV 11/12/24 O09.90 - Supervision of high risk , unspecified, unspecified trimester Hemoglobin A1c 11/12/24 O09.90 - Supervision of high risk , unspecified, unspecified trimester, O99.210 - Obesity complicating , unspecified trimester Comprehensive Metabolic Profil 11/12/24 O. - Supervision of high risk , unspecified, [...] 11/24/24 1335 s CNM> Date _ Lyssa WARDM Cosigner Signature: Date (if applicable) CC: ~ [facility]02-17-2025 Evaluation note* Diagnosis Onset Date Resolution [...] Nodular goiter chronic November 24, 2024 12:49pm [facility] Work Phone: 1([phone]) 399-140804-26-2021 NoteHNO ID: [id number] Author: Brian Alcocer Service: ? Author Type: Physician Type: Progress [...] suspect is musculoskeletal. Get (more content not included)...[facility]03-08-2021 NoteHNO ID: [id number] Author: Jacey Galdamez Service: ? Author Type: Nurse Practitioner Type: Progress Notes Filed: 09/11/2020 9:25 AM Note Text: Subjective Patient triaged in [facility] care. Patient presenting with intermittent dizziness, left chest pain, left arm numbness for "months". Denies cardiac history. Discussed limitations of express care, I will refer to family medicine. Patient appears in on distress today. I advised if s/s become severe needs to go to ER.[facility] Future Appointments [facility] Evaluation noteNo assessment information available [facility] Work Phone: Evaluation note* Diagnosis Onset Date Resolution Status Nodular goiter acute Encounter for routine gynecological examination noneactive [facility] Work Phone: History and physical note [facility] Medical Records Department [address] [place] [address] OB Triage Physician Note 04/03/25 1535 MR#: [id number] Acct: [id number] Name: DEMARCUS ABAD Rep #:[id number] : 1990 35 From: William Ceballos MD PCP: Dr. Beatriz Escobar MD Status :DEP CLI Y Location: [facility] HPI - General HPI Narrative DEMARCUS ABAD, is a 35 F G4, P2 at 26 weeks 6 days gestation who presents tolabor and delivery because she was at the grocery store and a shopping cart was jammed into her abdomen. It caused somediscomfort so she came to labor and delivery. On presentation to labor delivery she was noted to have minimal pain. Maternal blood type is Rh+. Patient was placed on monitor and the monitor strip was reactive without showing any decelerations. After monitoring the patient for 33 minutes she was discharged to home with routine follow-up suggested. She was instructed to use Tylenol if she hadsevere pain or crampingand to return if this pain persisted or bleeding ensued. Maternal Data Information ROSE Calculator Estimated Delivery Date Method Current WG Current Estimate 07/04/25 LMP (Certain) 26w 6d Other Estimates 07/07/25 Ultrasound #1 26w 3d PFSH PFS Medical History Hot thyroid nodule Hx of varicose veins of lower extremity Depression Nodular goiter HPV (human papilloma virus) infection Thyroid disorder Pre-eclampsia Abnormal glucose Anemia Home Medications ?Medication ?Instructions ?Recorded ?Last Taken ?Type multivit-min no.71-iron fum 28 1 cap PO DAILY 11/12/24 04/01/25 21:00 History mg-folate no.1 1 mg-dha 300 mg 1 cap capsule (PNV-Lowell) methimazole 5 mg tablet 2.5 mg (1/2 x 5 mg) PO .ever y 01/17/25 03/30/25 08:00 Rx other day #15 tabs 2.5 mg Allergy/AdvReac Type Severity Reaction Status Date / Time Penicillins Allergy Unknown Unknown Verified 04/02/25 18:30 Family History Mother Hypertension Father Diabetes Aunt Thyroid disorder Maternal- unknown type Surgical History History of bunionectomy of right great toe [place] teeth extracted History of colposcopy Social History adopted: No household members: spouse and children housing: house number of children: 2 current occupational status: unemployed current occupation: [employer] pets and animals: Yes (no litter box) [...] physical activity do you participate in: none [place]/orthodox: Protestant seatbelt use: always do you feel safe at home: Yes additional social history: [employer]- [employer] History 4 Elective abortions Hx Para 2 Spontaneous abortions 1 Hx # Term Pregnancies Ectopic pregnancies Hx # Pregnancies 2 Multiple births # of living children 2 Past Pregnancies Del. Date Name GA/Weeks Outcome Route Bth Weight Infant Gen Labor Lgth Anesthesia Del Locatn Provider FOB Unknown 08/2024 6 spontaneous 04/30/08 Shlomo 36 live - 6# Male epidural [facility] Taye 08/08/21 Emalie 36 live - 6lbs 14oz Female ep idural [facility] [place] Delivery Date: 04/30/08 Last Updated by: Manda Aguirre MEDICAL ASSISTANT SECRETARY, MEDICAL ASSISTANT SECRETARY-C Induced to preeclampsia, teen Delivery Date: 08/08/21 Last Updated by: Ashley FLORES pre-e Visit Details Expected Delivery Route/Plan Labor Preferences- CB/BF classes: [] labor support person: [] labor intervention preferences: [] pain management options preferred: [] cut cord/dad catch: [] : [] PP control planned: [] discussed possible routes of delivery and associated risks: [] special requests: [] Plans Covid status: [] Flu vaccine: [] Tdap vaccine: [] Rhogam: [] LARC form signed: yes Problem list reviewed and updated with the most current plan of care details and appropriate ordersplaced. Relevant counseling for the gestational age provided. Continue routine care and follow up unless otherwise noted in visit notes/problem list details OB Flowsheet Initial Weight: 168 lb Date -?-?-?-?-?-?-?-?-?-?-?-?- EGA Weight BP Urine Prot -?-?-?-?-?-?-?-?-?-?-?-?- Glucose FHR FuHt Pres Dilation -?-?-?-?-?-?-?-?-?-?-?-?- Effaced St Visit Note 11/24/24 -?-?-?-?-?-?-?-?-?-?-?-?- 8w 2d 168 lb 8 oz (+8 oz) 108/74 -?-?-?-?-?-?-?-?-?-?-?-?- 162 -?-?-?-?-?-?-?-?-?-?-?--?- KW- CRL cons wit h dates. accepts NIPT. 12/27/24 -?-?-?-?-?-?-?-?-?-?-?-?- 13w 0d 166 lb (-2 lb) 115/73 Negative -?-?-?-?-?-?-?-?-?-?-?-?- Negative 160 -?-?-?-?-?-?-?-?-?-?-?-?- -NoVB. Br US c onfirm FHT. Nausea persists, no vomiting. Will try B6&unisom. Dysuria: + UA. Culture pending, Rx macrobid. PN labs, NIPT today. 01/10/25 -?-?-?-?-?-?-?-?-?-?-?-?- 15w 0d 165 lb 8 oz (-2 lb 8 oz) 114/68 -?-?-?-?-?-?-?-?-?-?-?-?- 163 -?-?-?-?-?-?-?-?-?-?-?-?- -work in for F HT check. Thought felt movement and then did not. FHT easily found with br US 01/25/25 -?--?-?-?-?-?-?-?-?-?-?-?- 17w 1d 167 lb 2 oz (-14 oz) 111/73 Negative -?-?-?-?-?-?-?-?-?-?-?-?- Negative 150 -?-?-?-?-?-?-?-?-?-?-?-?- SM- no vb lof cr amping 02/21/25 -?-?-?-?-?-?-?-?-?-?-?-?- 21w 0d 170 lb 8 oz (+2 lb 8 oz) 103/68 Negative -?-?-?-?-?-?-?-?-?-?-?-?- Negative 158 21 -?-?-?-?-?-?-?-?-?-?-?-?- KW- no vb/lof/ct x. good fm. will get thyroid labs today. many questions answered. 03/22/25 -?-?-?-?-?-?-?-?-?-?-?-?- 25w 1d 178 lb 1 oz (+10 lb 1 oz) 111/75 Negative -?-?-?-?-?-?-?-?-?-?-?-?- Negative 142 26 -?-?-?-?-?-?-?-?-?--?-?-?- MH-No VB, LOF. G ood FM. Discussed managing sciatic pain. [facility] NST FHR Rate Baby A NST Reactive:: Yes FHR Category:: Category I Assessment & Plan (1) Trauma during : COMMENT: Minimal trauma per history and symptoms. Reactive nonstress test and patient is Rh+. Recommended routine follow-up. Will discharge to home. 04/03/25 1540 D> Date _ William Ceballos MD Cosigner Signature (if applicable): Date CC: Dr. Beatriz Escobar MD; Dr. William Ceballos MD ~ [facility] William akilah [facility] Note Date/Time April 03, 2025 3:40pm [facility] Medical Records Department [address] [place] [address] OB Triage Physician Note 04/03/25 1535 MR#: [id number] Acct: [id number] Name: DEMARCUS ABAD Rep #:[id number] : 1990 35 From: William Ceballos MD PCP: Dr. Beatriz Escobar MD Status :[facility] Location: [facility] HPI - General HPI Narrative DEMARCUS ABAD, is a 35 F G4, P2 at 26 weeks 6 days gestation who presents tolabor and delivery because she was at the grocery store and a shopping cart was jammed into her abdomen. It caused some discomfort so she came to labor and delivery. On presentation to labor delivery she was noted to have minimal pain. Maternal blood type is Rh+. Patient was placed on monitor and the monitor strip was reactive without showing any decelerations. After monitoring the patient for 33 minutes she was discharged to home with routine follow-up suggested. She was instructed to use Tylenol if she had severe pain or crampingand to return if this pain persisted or bleeding ensued. Maternal Data Information ROSE Calculator Estimated Delivery Date Method Current WG Current Estimate 07/04/25 LMP (Certain) 26w 6d Other Estimates 07/07/25 Ultrasound #1 26w 3d PFSH PFSH Medical History Hot thyroid nodule Hx of varicose veins of lower extremity Depression Nodular goiter HPV (human papilloma virus) infection Thyroid disorder Pre-eclampsia Abnormal glucose Anemia Home Medications ?Medication ?Instructions ?Recorded ?Last Taken ?Type multivit-min no.71-iron fum 28 1 cap PO DAILY 11/12/24 04/01/25 21:00 History mg-folate no.1 1 mg-dha 300 mg 1 cap capsule (PNV-Lowell) methimazole 5 mg tablet 2.5 mg (1/2 x 5 mg) PO .ever y 01/17/25 03/30/25 08:00 Rx other day #15 tabs 2.5 mg Allergy/AdvReac Type Severity Reaction Status Date / Time Penicillins Allergy Unknown Unknown Verified 04/02/25 18:30 Family History Mother Hypertension Father Diabetes Aunt Thyroid disorder Maternal- unknown type Surgical History History of bunionectomy of right great toe [place] teeth extracted History of colposcopy Social History adopted: No household members: spouse and children housing: house number of children: 2 current occupational status: unemployed current occupation: 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 Date Name GA/Weeks Outcome Route Bth Weight Infant Gen Labor Lgth Anesthesia Del Locatn Provider FOB Unknown 08/2024 6 spontaneous 04/30/08 Shlomo 36 live - 6# Male epidural [facility] Taye 08/08/21 Emalie 36 live - 6lbs 14oz Female ep idural [facility] [place] Delivery Date: 04/30/08 Last Updated by: Manda Aguirre MEDICAL ASSISTANT SECRETARY, MEDICAL ASSISTANT SECRETARY-C Induced to preeclampsia, teen Delivery Date: 08/08/21 Last Updated by: Ashley Cortes IOL pre-e Visit Details Expected Delivery Route/Plan Labor Preferences- CB/BF classes: [] labor support person: [] labor intervention preferences: [] pain management options preferred: [] cut cord/dad catch: [] : [] PP control planned: [] discussed possible routes of delivery and associated risks: [] special requests: [] Plans Covid status: [] Flu vaccine: [] Tdap vaccine: [] Rhogam: [] LARC form signed: yes Problem list reviewed and updated with the most current plan of care details and appropriate orders placed. Relevant counseling for the gestational age provided. Continue routine care and follow up unless otherwise noted in visit notes/problem list details OB Flowsheet Initial Weight: 168 lb Date -?-?-?-?-?-?-?-?-?-?-?-?- EGA Weight BP Urine Prot -?-?-?-?-?-?-?-?-?-?-?-?- Glucose FHR FuHt Pres Dilation -?-?-?-?-?-?-?-?-?-?-?-?- Effaced St Visit Note 11/24/24 -?-?-?-?-?-?-?-?-?-?-?-?- 8w 2d 168 lb 8 oz (+8 oz) 108/74 -?-?-?-?-?-?-?-?-?-?-?-?- 162 -?-?-?-?-?-?-?-?-?-?-?--?- KW- CRL cons wit h dates. accepts NIPT. 12/27/24 -?-?-?-?-?-?-?-?-?-?-?-?- 13w 0d 166 lb (-2 lb) 115/73 Negative -?-?-?-?-?-?-?-?-?-?-?-?- Negative 160 -?-?-?-?-?-?-?-?-?-?-?-?- -NoVB. Br US c onfirm FHT. Nausea persists, no vomiting. Will try B6&unisom. Dysuria: + UA. Culture pending, Rx macrobid. PN labs, NIPT today. 01/10/25 -?-?-?-?-?-?-?-?-?-?-?-?- 15w 0d 165 lb 8 oz (-2 lb 8 oz) 114/68 -?-?-?-?-?-?-?-?-?-?-?-?- 163 -?-?-?-?-?-?-?-?-?-?-?-?- -work in for F HT check. Thought felt movement and then did not. FHT easily found with br 01/25/25 -?--?-?-?-?-?-?-?-?-?-?-?- 17w 1d 167 lb 2 oz (-14 oz) 111/73 Negative -?-?-?-?-?-?-?-?-?-?-?-?- Negative 150 -?-?-?-?-?-?-?-?-?-?-?-?- SM- no vb lof cr amping 02/21/25 -?-?-?-?-?-?-?-?-?-?-?-?- 21w 0d 170 lb 8 oz (+2 lb 8 oz) 103/68 Negative -?-?-?-?-?-?-?-?-?-?-?-?- Negative 158 21 -?-?-?-?-?-?-?-?-?-?-?-?- KW- no vb/lof/ct x. good fm. will get thyroid labs today. many questions answered. 03/22/25 -?-?-?-?-?-?-?-?-?-?-?-?- 25w 1d 178 lb 1 oz (+10 lb 1 oz) 111/75 Negative -?-?-?-?-?-?-?-?-?-?-?-?- Negative 142 26 -?-?-?-?-?-?-?-?-?--?-?-?- MH-No VB, LOF. G ood FM. Discussed managing sciatic pain. [facility] NST FHR Rate Baby A NST Reactive:: Yes FHR Category:: Category I Assessment & Plan (1) Trauma during : COMMENT: Minimal trauma per history and symptoms. Reactive nonstress test and patient is Rh+. Recommended routine follow-up. Will discharge to home. 04/03/25 1540 <Electronically signed by William Pickens> Date _ William Ceballos MD Cosigner Signature (if applicable): Date CC: Dr. Beatriz Escobar MD; Dr. William Ceballos MD ~ Signed [facility] Work Phone: Hospital course Narrative No data available for this section [facility] Hospital Discharge instructions No data available for this section [facility] Progress note No data available for this section [facility] Progress note Author Lyssa Aguila [facility] Note Date/Time November 24, 2024 1:35p [facility] [address], [address] [place] [address] OFFICE VISIT Date of Service: 11/24/24 MR#: [id number] Acct: [id number] Name: DEMARCUS ABAD Rep #: [id number] : 1990 Provider: SULLY Aguila Age/Sex: 34/F Location: [facility] Status: Signed Intake Vital Signs 08/23/24 15:14 11/24/24 12:59 Height 5 ft 2 in 5 ft 2 in Weight: 166 lb 168 lb 8 oz BMI 30.3 30.8 BP 119/77 108/74 Intake Visit Reasons: NOB LMP 09/27 Chief Complaint: 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 Is patient in pain?: No Allergies Penicillins Allergy (Unknown, Verified 11/24/24 12:57) Unknown Medications ?Medication ?Instructions ?Recorded ?Confirmed ?Type ferrous sulfate 325 mg (65 mg 325 mg PO DAILY 09/05/23 11/24/24 History iron) tablet (Feosol) multivit-min no.71-iron fum 28 cap PO 11/12/24 5 History mg-folate no.1 1 mg-dha 300 mg capsule (PNV-Lowell) Last Menstrual Period: 09/27/24 : Yes PFSH PFSH Medical History Hx of varicose veins of lower extremity Depression Nodular goiter HPV (human papilloma virus) infection Thyroid disorder Pre-eclampsia Abnormal glucose Anemia Surgical History History of bunionectomy of right great toe [place] teeth extracted History of colposcopy Family History Mother Hypertension Father Diabetes Aunt Thyroid disorder Maternal- unknown type Social History adopted: No household members: spouse and children housing: house number of children: 2 service: No current occupational status: unemployed current occupation: 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 Date Name GA/Weeks Outcome Route Bth Weight Gen Labor Lgth Anesthesia Del Locatn Provider FOB Unknown 08/2024 6 spontaneous 04/30/08 Shlomo 36 live - 6# Male epidural [facility] Taye 08/08/21 Emalie 36 live - 6lbs 14oz Female ep idural [facility] [place] Delivery Date: 04/30/08 Last Updated by: Manda Aguirre MEDICAL ASSISTANT SECRETARY, MEDICAL ASSISTANT SECRETARY-C Induced to preeclampsia, teen Delivery Date: 08/08/21 [...] Thyroid dysfunction (Thyroid nodule), Drug/latex allergies/reactions (PCN), Hog Trader surgery (Colposcopy), Operations/hospitalizations (wisdom teeth, bunionectomy-right), History [...] Acute Comment: , ROSE 07/04/25, [employer] [place], Medardo (2) : Status: Acute Qualifiers: Weeks of [...] (13) History of colposcopy: Status: Acute Comment: [facility] pap 04/2020 pos HPV, neg pap. Neg colp wo bx per RR at [facility] 05/2020 Orders: Orders CBC W/Diff, Automated [...] unspecified trimester Hepatitis B Surface Antigen 11/12/24 O09.90 - [...] patient and patient chose: NIPT 11/24/24 1335 <Electronically signed by Lyssa preston CNM> Date _ Lyssa Aguila CNM Cosigner Signature: Date (if applicable) CC: ~ [facility] Work Phone: Progress note Author Manda Aguirre [facility] Note Date/Time March 22, 2025 10:55am [facility] [address], [address] [place] [id number] OFFICE VISIT Date of Service: 03/22/25 MR#: [id number] Acct: [id number] Name: DEMARCUS ABAD Rep #: [id number] : 1990 Provider: LUCILA Aguirre Age/Sex: 35/F Location: [facility] Status: Signed Intake Vital Signs 01/25/25 13:59 02/21/25 11:01 03/22/25 10:32 03/22/25 10:36 Height 5 ft 2 in 5 ft 2 in 5 ft 2 in 5 ft 2 in Weight: 178 lb 1 oz BMI 32.5 BP 111/75 Intake Visit Reasons: 24wk ob Chief Complaint: 24 Week 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 Is patient in pain?: No Allergies Penicillins Allergy (Unknown, Verified 03/22/25 10:35) Unknown Medications ?Medication ?Instructions ?Recorded ?Confirmed ?Type ferrous sulfate 325 mg (65 mg 325 mg PO DAILY 09/05/23 03/22/25 History iron) tablet (Feosol) multivit-min no.71-iron fum 28 cap PO 11/12/24 5 History mg-folate no.1 1 mg-dha 300 mg capsule (PNV-Lowell) methimazole 5 mg tablet 2.5 mg (1/2 x 5 mg) PO .ever y 01/17/25 03/22/25 Rx other day #15 tabs Last Menstrual Period: 09/27/24 Zika: Zika virus screening: Negative : No PFSH PFSH Medical History Hot thyroid nodule Hx of varicose veins of lower extremity Depression Nodular goiter HPV (human papilloma virus) infection Thyroid disorder Pre-eclampsia Abnormal glucose Anemia Surgical History History of bunionectomy of right great toe [place] teeth extracted History of colposcopy Family History Mother Hypertension Father Diabetes Aunt Thyroid disorder Maternal- unknown type Social History adopted: No household members: spouse and children housing: house number of children: 2 current occupational status: unemployed current occupation: 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 Date Name GA/Weeks Outcome Route Bth Weight Infant Gen Labor Lgth Anesthesia Del Locatn Provider FOB Unknown 08/2024 6 spontaneous 04/30/08 Shlomo 36 live - 6# Male epidural [facility] Taye 08/08/21 Emalie 36 live - 6lbs 14oz Female ep idural [facility] [place] Delivery Date: 04/30/08 Last Updated by: Manda Aguirre MEDICAL ASSISTANT SECRETARY, MEDICAL ASSISTANT SECRETARY-C Induced to preeclampsia, teen Delivery Date: 08/08/21 Last Updated by: Ashley Cortes IOL pre-e HPI 24wk ob Details: DEMARCUS ABAD is a 35 year old who presents for routine OB visit. OB Visit ROSE Calculator Estimated Delivery Date Method Current WG Current Estimate 07/04/25 LMP (Certain) 25w 1d Other Estimates 07/07/25 Ultrasound #1 24w 5d Expected Delivery Route/Plan Labor Preferences- CB/BF classes: [] labor support person: [] labor intervention preferences: [] pain management options preferred: [] cut cord/dad catch: [] : [] PP control planned: [] discussed possible routes of delivery and associated risks: [] special requests: [] Specific Issue/Plans Covid status: [] Flu vaccine: [] Tdap vaccine: [] Rhogam: [] LARC form signed: yes Problem list reviewed and updated with the [...] CRL cons wit h dates. accepts NIPT. 12/27/24 -?-?-?-?-?-?-?-?-?-?-?-?- 13w 0d 166 lb (-2 lb) 115/73 Negative -?-?-?-?-?-?-?-?-?-?-?-?- Negative 160 -?-?-?-?-?-?-?-?-?-?-?-?- MH-NoVB. Br US c onfirm FHT. Nausea persists, no vomiting. Will try B6&unisom. Dysuria: + UA. Culture pending, Rx macrobid. PN labs, NIPT today. 01/10/25 -?-?-?-?-?-?-?-?-?-?-?-?- 15w 0d 165 lb 8 oz (-2 lb 8 oz) 114/68 -?-?--?-?-?-?-?-?-?-?-?-?- 163 -?-?-?-?-?-?-?-?-?-?-?-?- -work in for F HT check. Thought felt movement and then did not. FHT easily found with br 01/25/25 -?-?-?-?-?-?-?-?-?-?-?-?- 17w 1d 167 lb 2 oz (-14 oz) 111/73 Negative -?-?-?-?-?-?-?-?-?-?-?-?- Negative 150 -?-?-?-?-?-?-?--?-?-?-?-?- SM- no vb lof cr amping 02/21/25 -?-?-?-?-?-?-?-?-?-?-?-?- 21w 0d 170 lb 8 oz (+2 lb 8 oz) 103/68 Negative -?-?--?-?-?-?-?-?-?-?-?-?- Negative 158 21 -?-?-?-?-?-?-?-?-?-?-?-?- KW- no vb/lof/ct x. good fm. will get thyroid labs today. many questions answered. 03/22/25 -?-?-?-?-?-?-?-?-?-?-?-?- 25w 1d 178 lb 1 oz (+10 lb 1 oz) 111/75 Negative -?-?-?-?-?-?-?-?-?-?-?-?- Negative 142 26 -?-?-?-?-?-?-?-?-?-?-?-?- MH-No VB, LOF. G ood FM. Discussed managing sciatic pain. Larc ACOG First Trimester First Trimester: Desire for , Alcohol, Tobacco Cessation, Illicit/Recreational Drug/Substance Use, Intimate Partner Violence, Barriers to care, Unstable Housing, Communication Barriers, Environmental/Work Hazards, Anticipated Course of Care, Toxoplasmosis Precations, Use of Any medications, Sexual activity, Exercise, Dental Care, Sauna/Hot tub use, Seat Belt use, Childbirth classes/Hospital facilities, Travel, Indications for Ultrasound and Screening for Aneuploidy; Discussed Second Trimester Second Trimester: Signs and Symptoms of Labor, Selecting a care provider, Reproductive Life Planning & Contreception, Care Planning, Depression/Anxiety and Intimate Partner Violence; Discussed Tobacco Cessation Third Trimester Third Trimester: Pain Management Plans, Labor support person(s), Immediate Larc, Signs and Symptoms of Preeclampsia, Infant Feeding No , Education and Family Medical Leave or Disability Forms ROS Const Reports system reviewed and no additional complaints, except as documented GI Denies abdominal pain, Denies nausea and Denies vomiting Exam Const General: cooperative Nutritional Appearance: well nourished GI Palpation: soft, nontender and other (gravid) Results POC Urinalysis 2 Dip (Clinic) Office Urine Glucose Negative Last Edit by Cortney Martinez on 03/22/25 10:24 Office Urine Protein Negative Last Edit by Cortney Martinez on 03/22/25 10:24 POC Urinalysis 2 Dip (Clinic) Office Urine Glucose Negative Last Edit by Swapna Ahuja on 03/22/25 10 :37 Office Urine Protein Negative Last Edit by Swapna Ahuja on 03/22/25 10 :37 Coding Level of Care Code OB Routine Diagnoses Supervision of high risk in second trimester O09.92 Trimester: second trimester 25 weeks gestation of Z3A.25 Weeks of gestation: 25 weeks Urinary tract infection in mother during second trimester of O23.42 Trimester: second trimester Hot thyroid nodule E04.1 History of pre-eclampsia in prior , currently O09.299 History of miscarriage, currently O09.299 Advanced maternal age (AMA) in Obesity affecting in second trimester, unspecified obesity type O99.212 Obesity type affecting : unspecified obesity Trimester: second trimester Needle phobia F40.298 Assessment and Plan Assessment and Plan (1) Supervision of high-risk : Status: Acute Qualifiers: Trimester: second trimester Qualified Code(s): O09.92 - Supervision of high risk , unspecified, second trimester Comment: PRR , ROSE 07/04/25, boy Abad PC [employer] [place]enan, Medardo (2) : Status: Acute Qualifiers: Weeks of gestation: 25 weeks Qualified Code(s): Z3A.25 - 25 weeks gestation of Comment: NIPT:low risk, male declined carrier testing. anatomy nl (3) UTI in : Status: Acute Qualifiers: Trimester: second trimester Qualified Code(s): O23.42 - Unspecified infection of urinary tract in , second trimester Comment: +UA. Rx macrobid. Culture negative (4) Hot thyroid nodule: Status: Chronic Comment: on methimazole, repeat labs in february. (5) History of pre-eclampsia in prior , currently : Status: Acute Comment: teen and induced at 36 wks, recommend baby aspirin, (6) History of miscarriage, currently : Status: Acute (7) Advanced maternal age (AMA) in : Status: Acute Comment: deliver at 39-40 weeks (8) Obesity affecting : Status: Acute Qualifiers: Obesity type affecting : unspecified obesity Trimester: second trimester Qualified Code(s): O99.212 - Obesity complicating , second trimester Comment: HgbA1c (9) Needle phobia: Status: Acute Orders: Orders POC Urinalysis 2 Dip (Clinic) Today POC Urinalysis 2 Dip (Clinic) Today CBC W/Diff, Automated Today O09.92 - Supervision of high risk , unspecified, second trimester Glucose Challenge Gest 1H 50g Today O09.92 - Supervision of high risk , unspecified, second trimester, Z13.1 - Encounter for screening for diabetes mellitus HIV Today O09.92 - Supervision of high risk , unspecified, second trimester Syphilis Antibodies Today O09.92 - Supervision of high risk , unspecified, second trimester Plan problem list reviewed and updated for most current plan of care and appropriate orders placed. Relevant counseling for the gestational age appropriate provided and ACOG education checklist updated. Continue routine care and follow up. 03/22/25 1056 <Electronically signed by Manda preston MEDICAL ASSISTANT SECRETARY MEDICAL ASSISTANT SECRETARY-C> Date _ Mandamal Thomass MEDICAL ASSISTANT SECRETARY MEDICAL ASSISTANT SECRETARY-C Cosigner Signature: Date (if applicable) CC: ~ [facility] Work Phone: Progress note Author Carmelita Cary [facility] Note Date/Time April 18, 2025 1 1:47am [facility] [address], [address] [place] [address] OFFICE VISIT Date of Service: 04/18/25 MR#: [id number] Acct: [id number] Name: DEMARCUS ABAD Rep #: [id number] : 1990 Provider: Dr. Sandra Weeks DO Age/Sex: 35/F Location: [facility] Status: Signed Intake Vital Signs 01/25/25 13:59 04/02/25 18:35 04/18/25 10:56 04/18/25 10:59 Height 5 ft 2 in 5 ft 2 in 5 ft 2 in 5 ft 2 in Weight: 183 lb 9 oz BMI 33.5 BP 106/71 Intake Visit Reasons: 28wk ob/glucose Spouting Installer Required: No Is patient in pain?: No Allergies Penicillins Allergy (Unknown, Verified 04/18/25 10:56) Unknown Medications ?Medication ?Instructions ?Recorded ?Confirmed ?Type multivit-min no.71-iron fum 28 1 cap PO DAILY 11/12/24 04/18/25 History mg-folate no.1 1 mg-dha 300 mg capsule (PNV-[place]ell) methimazole 5 mg tablet 2.5 mg (1/2 x 5 mg) PO .ever y 01/17/25 04/18/25 Rx other day #15 tabs Last Menstrual Period: 09/27/24 Zika: Zika virus screening: Negative : No PFSH PFSH Medical History Hot thyroid nodule Hx of varicose veins of lower extremity Depression Nodular goiter HPV (human papilloma virus) infection Thyroid disorder Pre-eclampsia Abnormal glucose Anemia Surgical History History of bunionectomy of right great toe [place] teeth extracted History of colposcopy Family History Mother Hypertension Father Diabetes Aunt Thyroid disorder Maternal- unknown type Social History adopted: No household members: spouse and children housing: house number of children: 2 current occupational status: unemployed current occupation: 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 Date Name GA/Weeks Outcome Route Bth Weight Infant Gen Labor Lgth Anesthesia Del Locatn Provider FOB Unknown 08/2024 6 spontaneous 04/30/08 Shlomo 36 live - 6# Male epidural [facility] Taye 08/08/21 Emalie 36 live - 6lbs 14oz Female ep idural [facility] [place] Delivery Date: 04/30/08 Last Updated by: Manda Aguirre MEDICAL ASSISTANT SECRETARY, MEDICAL ASSISTANT SECRETARY-C Induced to preeclampsia, teen Delivery Date: 08/08/21 Last Updated by: Ashley Cortes IOL pre-e HPI 28wk ob/glucose Details: DEMARCUS ABAD is a 35 year old who presents for routine OB visit. OB Visit ROSE Calculator Estimated Delivery Date Method Current WG Current Estimate 07/04/25 LMP (Certain) 29w 0d Other Estimates 07/07/25 Ultrasound #1 28w 4d Expected Delivery Route/Plan Labor Preferences- CB/BF classes: [] labor support person: [] labor intervention preferences: [] pain management options preferred: [] cut cord/dad catch: [] : [] PP control planned: [] discussed possible routes of delivery and associated risks: [] special requests: [] Specific Issue/Plans Covid status: [] Flu vaccine: [] Tdap vaccine: [] Rhogam: [] LARC form signed: yes Problem list reviewed and updated with the most current plan of care details and appropriate orders placed. Relevant counseling for the gestational age provided. Continue routine care and follow up unless otherwise noted in visit notes/problem list details Initial Weight: 168 lb Date -?-?--?-?-?-?-?-?-?-?-?-?- EGA Weight BP Urine Prot -?-?-?-?-?-?-?-?-?-?-?-?- Glucose FHR FuHt Pres Dilation -?-?-?-?-?-?-?-?-?-?-?-?- Effaced St Visit Note 11/24/24 -?-?-?-?-?-?-?-?-?-?-?-?- 8w 2d 168 lb 8 oz (+8 oz) 108/74 -?-?-?-?-?-?-?-?-?-?-?-?- 162 -?-?-?-?-?-?-?-?-?-?-?-?- KW- CRL cons wit h dates. accepts NIPT. 12/27/24 -?-?-?-?-?-?-?-?-?-?-?-?- 13w 0d 166 lb (-2 lb) 115/73 Negative -?-?-?-?-?-?-?-?-?-?-?-?- Negative 160 -?-?-?-?-?-?-?-?-?-?-?-?- -Jaren. Sulaiman MCCLAIN c onfirm FHT. Nausea persists, no vomiting. Will try B6&unisom. Dysuria: + UA. Culture pending, Rx macrobid. PN labs, NIPT today. 01/10/25 -?-?-?-?-?-?-?-?-?-?-?-?- 15w 0d 165 lb 8 oz (-2 lb 8 oz) 114/68 -?-?-?-?-?-?-?-?-?-?-?-?- 163 -?-?-?-?-?-?-?-?-?-?-?-?- -work in for F HT check. Thought felt movement and then did not. FHT easily found with br US 01/25/25 -?-?-?-?-?-?-?-?-?-?-?-?- 17w 1d 167 lb 2 oz (-14 oz) 111/73 Negative -?--?-?-?-?-?-?-?-?-?-?-?- Negative 150 -?-?-?-?-?-?-?-?-?-?-?-?- SM- no vb lof cr amping 02/21/25 -?-?-?-?-?-?-?-?-?-?-?-?- 21w 0d 170 lb 8 oz (+2 lb 8 oz) 103/68 Negative -?-?-?-?-?-?-?-?-?-?-?-?- Negative 158 21 -?-?-?-?-?-?-?-?-?-?-?-?- KW- no vb/lof/ct x. good fm. will get thyroid labs today. many questions answered. 03/22/25 -?-?-?-?-?-?-?-?-?-?-?-?- 25w 1d 178 lb 1 oz (+10 lb 1 oz) 111/75 Negative -?-?-?-?-?-?-?-?-?-?-?-?- Negative 142 26 -?-?-?-?-?-?-?-?-?-?-?-?- MH-No VB, LOF. G ood FM. Discussed managing sciatic pain. Larc 04/18/25 -?-?-?--?-?-?-?-?-?-?-?-?- 29w 0d 183 lb 9 oz (+15 lb 9 oz) 106/71 -?-?-?-?-?-?-?-?-?-?-?-?- 135 29 -?-?-?-?-?-?-?-?-?-?-?-?- JV- no lof, vagi nal bleeding, or dec fm. declines tdap, flu, and rsv. has not started baby asa yet. encouraged to do so for prevention of pre-e. JV- no lof, vaginal bleeding , or dec fm. declines tdap, flu, and rsv. has not started baby asa yet. encouraged to do so for prevention of pre-e. tsh, free t4,free t3, and 28 week labs today ACOG First Trimester First Trimester: Desire for , Alcohol, Tobacco Cessation, Illicit/Recreational Drug/Substance Use, Intimate Partner Violence, Barriers to care, Unstable Housing, Communication Barriers, Environmental/Work Hazards, Anticipated Course of Care, Toxoplasmosis Precations, Use of Any medications, Sexual activity, Exercise, Dental Care, Sauna/Hot tub use, Seat Belt use, Childbirth classes/Hospital facilities, Travel, Indications for Ultrasound and Screening for Aneuploidy; Discussed Second Trimester Second Trimester: Signs and Symptoms of Labor, Selecting a care provider, Reproductive Life Planning & Contreception, Care Planning, Depression/Anxiety and Intimate Partner Violence; Discussed Tobacco Cessation Third Trimester Third Trimester: Pain Management Plans, Labor support person(s), Immediate Larc, Signs and Symptoms of Preeclampsia, Infant Feeding No , Education and Family Medical Leave or Disability Forms Coding Level of Care Code OB Routine Diagnoses Trauma during O9A.219 History of pre-eclampsia in prior , currently O09.299 Hot thyroid nodule E04.1 Urinary tract infection in mother during second trimester of O23.42 Trimester: second trimester Supervision of high risk in second trimester O09.92 Trimester: second trimester 29 weeks gestation of Z3A.29 Weeks of gestation: 29 weeks History of miscarriage, currently O09.299 Advanced maternal age (AMA) in Obesity affecting in second trimester, unspecified obesity type O99.212 Obesity type affecting : unspecified obesity Trimester: second trimester Needle phobia F40.298 Assessment and Plan Assessment and Plan (1) Trauma during : Status: Acute Comment: Minimal trauma per history and symptoms. Reactive nonstress test and patient is Rh+. Recommended routine follow-up. Will discharge to home. (2) History of pre-eclampsia in prior , currently : Status: Acute Comment: teen and induced at 36 wks, recommend baby aspirin, (3) Hot thyroid nodule: Status: Chronic Comment: on methimazole, repeat labs in february. (4) UTI in : Status: Acute Qualifiers: Trimester: second trimester Qualified Code(s): O23.42 - Unspecified infection of urinary tract in , second trimester Comment: +UA. Rx macrobid. Culture negative (5) Supervision of high-risk : Status: Acute Qualifiers: Trimester: second trimester Qualified Code(s): O09.92 - Supervision of high risk , unspecified, second trimester Comment: PRR , ROSE 07/04/25, [employer] [place], Medardo (6) : Status: Acute Qualifiers: Weeks of gestation: 29 weeks Qualified Code(s): Z3A.29 - 29 weeks gestation of Comment: NIPT:low risk, male declined carrier testing. anatomy nl (7) History of miscarriage, currently : Status: Acute (8) Advanced maternal age (AMA) in : Status: Acute Comment: deliver at 39-40 weeks. patient prefers 39 weeks (jun 27) (9) Obesity affecting : Status: Acute Qualifiers: Obesity type affecting : unspecified obesity Trimester: second trimester Qualified Code(s): O99.212 - Obesity complicating , second trimester Comment: HgbA1c (10) Needle phobia: Status: Acute 04/18/25 1147 <Electronically signed by Carmelita Gómez DO> Date _ Carmelita Weeks DO Cosigner Signature: Date (if applicable) CC: ~ [facility] Work Phone: Reason for referral (narrative)No reason for [facility] available[facility] Work Phone: Summary Purpose Family History No Family History Records Found Relationship Condition Age at Onset Recorded Date/T leora mother Hypertension Unknown father Diabetes mellitus Unknown Relationship Condition Age at Onset Recorded Date/T leora mother Hypertension Unknown father Diabetes mellitus Unknown aunt Disorder of thyroid Unknown Advance Directives No Advanced Directives Records Found Advance Directive Response Recorded Date/ Time Living Will No August 16, 2 022 3:11pm Power of Awning Frame Maker No August 16, 2021 3:11pm Chief Complaint and Reason for Visit Chief Complaint THYROID NODULE Chief Complaint 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) Reason for Visit Nodular goiter Encounter for [...] Nodular goiter December 27, 2024 9:40 am Chief Complaint Admit Date NOB LMP 09/27November 24, 2024 12:49 pm 12 wks OB December 27, 2024 9:40 am 1 Y FU December 30, 2024 1:26 pm Reason for Visit Admit Date Advanced maternal [...] age (AMA) in December 27, 2024 9:40am History of anemia December 27, 2024 9:40 am History of miscarriage, currently pregna nt December 27, 2024 9:40am Hx of varicose veins of lower extremity December 27, 2024 9:40am Needle phobia December 27, 2024 9:40 am Obesity affecting December 27, 9:40am December 27, 2024 9:40 am Supervision of high-risk December 27, 2024 9:40am UTI in December 27, 2024 9:40 am Nodular goiter December 27, 2024 9:40 am Hot thyroid nodule December 30, 2024 1:26 pm Chief Complaint Admit Date NOB LMP 09/27November 24, 2024 12:49 pm 12 wks OB December 27, 2024 9:40 am 1 Y FU December 30, 2024 1:26 pm heart check January 10, 2025 1:49p m Reason for Visit Admit Date Advanced maternal [...] age (AMA) in December 27, 2024 9:40am History of anemia December 27, 2024 9:40 am History of miscarriage, currently pregna nt December 27, 2024 9:40am Hx of varicose veins of lower extremity December 27, 2024 9:40am Needle phobia December 27, 2024 9:40 am Obesity affecting December 27, 025 9:40am December 27, 2024 9:40 am Supervision of high-risk December 27, 2024 9:40am UTI in December 27, 2024 9:40 am Nodular goiter December 27, 2024 9:40 am Hot thyroid nodule December 30, 2024 1:26 pm Abnormal thyroid stimulating hormone (TS H) level January 10, 2025 1:49pm Advanced maternal age (AMA) in January 10, 2025 1:49pm Amenorrhea January 10, 2025 1:49p m History of anemia January 10, 2025 1:49p m History of colposcopy January 10, 2025 1:4 9pm History of miscarriage, currently pregna nt January 10, 2025 1:49pm HPV test positive January 10, 2025 1:49p m Hx of varicose veins of lower extremity January 10, 2025 1:49pm Needle phobia January 10, 2025 1:49p m Obesity affecting January 10 1:49pm January 10, 2025 1:49p m Supervision of high-risk January 10, 2025 1:49pm Thyroid nodule January 10, 2025 1:49p m UTI in January 10, 2025 1:49p m Hot thyroid nodule January 10, 2025 1:49p m Nodular goiter January 10, 2025 1:49p m Chief Complaint Admit Date NOB LMP 09/27November 24, 2024 12:49 pm 12 wks OB December 27, 2024 9:40 am 1 Y FU December 30, 2024 1:26 pm heart check January 10, 2025 1:49p m 16 wk ob January 25, 2025 1:51 pm Reason for Visit Admit Date Advanced maternal age (AMA) in November 24, 2024 12:49pm History of miscarriage, currently pregna nt November 24, 2024 12:49pm Needle phobia November 24, 2024 12:49 pm Obesity affecting November 24 12:49pm November 24, 2024 12:49 pm Supervision of high-risk November 052024 12:49pm Amenorrhea November 24, 2024 12:49 pm History of anemia November 24, 2024 12:49 pm History of colposcopy November 24, 2024 12: 49pm HPV test positive November 24, 2024 12:49 pm Hx of varicose veins of lower extremity November 24, 2024 12:49pm Nodular goiter November 24, 2024 12:49 pm Thyroid nodule November 24, 2024 12:49 pm Advanced maternal age (AMA) in December 27, 2024 9:40am History of miscarriage, currently pregna nt December 27, 2024 9:40am Needle phobia December 27, 2024 9:40 am Obesity affecting December 27 9:40am December 27, 2024 9:40 am Supervision of high-risk December 27, 2024 9:40am UTI in December 27, 2024 9:40 am History of anemia December 27, 2024 9:40 am Hx of varicose veins of lower extremity December 27, 2024 9:40am Nodular goiter December 27, 2024 9:40 am Hot thyroid nodule December 30, 2024 1:26 pm Advanced maternal age (AMA) in January 10, 2025 1:49pm History of miscarriage, currently pregna nt January 10, 2025 1:49pm Needle phobia January 10, 2025 1:49p m Obesity affecting January 10 1:49pm January 10, 2025 1:49p m Supervision of high-risk January 10, 2025 1:49pm UTI in January 10, 2025 1:49p m Hot thyroid nodule January 10, 2025 1:49p m Abnormal thyroid stimulating hormone (TS H) level January 10, 2025 1:49pm Amenorrhea January 10, 2025 1:49p m History of anemia January 10, 2025 1:49p m History of colposcopy January 10, 2025 1:4 9pm HPV test positive January 10, 2025 1:49p m Hx of varicose veins of lower extremity January 10, 2025 1:49pm Nodular goiter January 10, 2025 1:49p m Thyroid nodule January 10, 2025 1:49p m Advanced maternal age (AMA) in January 25, 2025 1:51pm History of miscarriage, currently pregna nt January 25, 2025 1:51pm Needle phobia January 25, 2025 1:51 pm Obesity affecting January 25, 2 025 1:51pm January 25, 2025 1:51 pm Supervision of high-risk January 25, 2025 1:51pm UTI in January 25, 2025 1:51 pm Hot thyroid nodule January 25, 2025 1:51 pm Abnormal thyroid stimulating hormone (TS H) level January 25, 2025 1:51pm Amenorrhea January 25, 2025 1:51 pm History of anemia January 25, 2025 1:51 pm History of colposcopy January 25, 2025 1: 51pm HPV test positive January 25, 2025 1:51 pm Hx of varicose veins of lower extremity January 25, 2025 1:51pm Nodular goiter January 25, 2025 1:51 pm Thyroid nodule January 25, 2025 1:51 pm Chief Complaint Admit Date NOB LMP 09/27November 24, 2024 12:49 pm 12 wks OB December 27, 2024 9:40 am 1 Y FU December 30, 2024 1:26 pm heart check January 10, 2025 1:49p m 16 wk ob January 25, 2025 1:51 pm 20 wk ob February 21, 2025 10 :57am Reason for Visit Admit Date Advanced maternal age (AMA) in November 24, 2024 12:49pm History of miscarriage, currently pregna nt November 24, 2024 12:49pm Needle phobia November 24, 2024 12:49 pm Obesity affecting November 24 12:49pm November 24, 2024 12:49 pm Supervision of high-risk November 052024 12:49pm Amenorrhea November 24, 2024 12:49 pm History of anemia November 24, 2024 12:49 pm History of colposcopy November 24, 2024 12: 49pm HPV test positive November 24, 2024 12:49 pm Hx of varicose veins of lower extremity November 24, 2024 12:49pm Nodular goiter November 24, 2024 12:49 pm Thyroid nodule November 24, 2024 12:49 pm Advanced maternal age (AMA) in December 27, 2024 9:40am History of miscarriage, currently pregna nt December 27, 2024 9:40am Needle phobia December 27, 2024 9:40 am Obesity affecting December 27, 2 025 9:40am December 27, 2024 9:40 am Supervision of high-risk December 27, 2024 9:40am UTI in December 27, 2024 9:40 am History of anemia December 27, 2024 9:40 am Hx of varicose veins of lower extremity December 27, 2024 9:40am Nodular goiter December 27, 2024 9:40 am Hot thyroid nodule December 30, 2024 1:26 pm Advanced maternal age (AMA) in January 10, 2025 1:49pm History of miscarriage, currently pregna nt January 10, 2025 1:49pm Needle phobia January 10, 2025 1:49p m Obesity affecting January 10 1:49pm January 10, 2025 1:49p m Supervision of high-risk January 10, 2025 1:49pm UTI in January 10, 2025 1:49p m Hot thyroid nodule January 10, 2025 1:49p m Abnormal thyroid stimulating hormone (TS H) level January 10, 2025 1:49pm Amenorrhea January 10, 2025 1:49p m History of anemia January 10, 2025 1:49p m History of colposcopy January 10, 2025 1:4 9pm HPV test positive January 10, 2025 1:49p m Hx of varicose veins of lower extremity January 10, 2025 1:49pm Nodular goiter January 10, 2025 1:49p m Thyroid nodule January 10, 2025 1:49p m Advanced maternal age (AMA) in January 25, 2025 1:51pm History of miscarriage, currently pregna nt January 25, 2025 1:51pm Needle phobia January 25, 2025 1:51 pm Obesity affecting January 25, 2 025 1:51pm January 25, 2025 1:51 pm Supervision of high-risk January 25, 2025 1:51pm UTI in January 25, 2025 1:51 pm Hot thyroid nodule January 25, 2025 1:51 pm Abnormal thyroid stimulating hormone (TS H) level January 25, 2025 1:51pm History of anemia January 25, 2025 1:51 pm Hx of varicose veins of lower extremity January 25, 2025 1:51pm Advanced maternal age (AMA) in February 21, 2025 10:57am History of miscarriage, currently pregna nt February 21, 2025 10:57am History of pre-eclampsia in prior , currently February 21, 2025 10:57am Needle phobia February 21, 2025 10 :57am Obesity affecting February 21, 2025 10:57am February 21, 2025 10 :57am Supervision of high-risk Augus t 2024 10:57am UTI in February 21, 2025 10 :57am Hot thyroid nodule February 21, 2025 10 :57am Chief Complaint Admit Date NOB LMP 09/27November 24, 2024 12:49 pm 12 wks OB December 27, 2024 9:40 am 1 Y FU December 30, 2024 1:26 pm heart check January 10, 2025 1:49p m 16 wk ob January 25, 2025 1:51 pm 20 wk ob February 21, 2025 10 :57am 24wk ob March 22, 2025 10:18am Reason for Visit Admit Date Advanced maternal age (AMA) in November 24, 2024 12:49pm History of miscarriage, currently pregna nt November 24, 2024 12:49pm Needle phobia November 24, 2024 12:49 pm Obesity affecting November 24 12:49pm November 24, 2024 12:49 pm Supervision of high-risk November 052024 12:49pm Amenorrhea November 24, 2024 12:49 pm History of anemia November 24, 2024 12:49 pm History of colposcopy November 24, 2024 12: 49pm HPV test positive November 24, 2024 12:49 pm Hx of varicose veins of lower extremity November 24, 2024 12:49pm Nodular goiter November 24, 2024 12:49 pm Thyroid nodule November 24, 2024 12:49 pm Advanced maternal age (AMA) in December 27, 2024 9:40am History of miscarriage, currently pregna nt December 27, 2024 9:40am Needle phobia December 27, 2024 9:40 am Obesity affecting December 27, 025 9:40am December 27, 2024 9:40 am Supervision of high-risk December 27, 2024 9:40am UTI in December 27, 2024 9:40 am History of anemia December 27, 2024 9:40 am Hx of varicose veins of lower extremity December 27, 2024 9:40am Nodular goiter December 27, 2024 9:40 am Hot thyroid nodule December 30, 2024 1:26 pm Advanced maternal age (AMA) in January 10, 2025 1:49pm History of miscarriage, currently pregna nt January 10, 2025 1:49pm Needle phobia January 10, 2025 1:49p m Obesity affecting January 10 1:49pm January 10, 2025 1:49p m Supervision of high-risk January 10, 2025 1:49pm UTI in January 10, 2025 1:49p m Hot thyroid nodule January 10, 2025 1:49p m Abnormal thyroid stimulating hormone (TS H) level January 10, 2025 1:49pm Amenorrhea January 10, 2025 1:49p m History of anemia January 10, 2025 1:49p m History of colposcopy January 10, 2025 1:4 9pm HPV test positive January 10, 2025 1:49p m Hx of varicose veins of lower extremity January 10, 2025 1:49pm Nodular goiter January 10, 2025 1:49p m Thyroid nodule January 10, 2025 1:49p m Advanced maternal age (AMA) in January 25, 2025 1:51pm History of miscarriage, currently pregna nt January 25, 2025 1:51pm Needle phobia January 25, 2025 1:51 pm Obesity affecting January 25, 025 1:51pm January 25, 2025 1:51 pm Supervision of high-risk January 25, 2025 1:51pm UTI in January 25, 2025 1:51 pm Hot thyroid nodule January 25, 2025 1:51 pm Abnormal thyroid stimulating hormone (TS H) level January 25, 2025 1:51pm History of anemia January 25, 2025 1:51 pm Hx of varicose veins of lower extremity January 25, 2025 1:51pm Advanced maternal age (AMA) in February 21, 2025 10:57am History of miscarriage, currently pregna nt February 21, 2025 10:57am History of pre-eclampsia in prior , currently February 21, 2025 10:57am Needle phobia February 21, 2025 10 :57am Obesity affecting February 21, 2025 10:57am February 21, 2025 10 :57am Supervision of high-risk Augus t 2024 10:57am UTI in February 21, 2025 10 :57am Hot thyroid nodule February 21, 2025 10 :57am Advanced maternal age (AMA) in March 22, 2025 10:18am History of miscarriage, currently pregna nt March 22, 2025 10:18am History of pre-eclampsia in prior , currently March 22, 2025 10:18am Needle phobia March 22, 2025 10:18am Obesity affecting March 222024 10:18am March 22, 2025 10:18am Supervision of high-risk Septe mber 2024 10:18am UTI in March 22, 2025 10:18am Hot thyroid nodule March 22, 2025 10:18am Chief Complaint Admit Date 12 wks OB December 27, 2024 9:40 am 1 Y FU December 30, 2024 1:26 pm heart check January 10, 2025 1:49p m 16 wk ob January 25, 2025 1:51 pm 20 wk ob February 21, 2025 10 :57am 24wk ob March 22, 2025 10:18am Reason for Visit Admit Date Advanced maternal age (AMA) in December 27, 2024 9:40am History of miscarriage, currently pregna nt December 27, 2024 9:40am Needle phobia December 27, 2024 9:40 am Obesity affecting December 27, 2 025 9:40am December 27, 2024 9:40 am Supervision of high-risk December 27, 2024 9:40am UTI in December 27, 2024 9:40 am History of anemia December 27, 2024 9:40 am Hx of varicose veins of lower extremity December 27, 2024 9:40am Nodular goiter December 27, 2024 9:40 am Hot thyroid nodule December 30, 2024 1:26 pm Advanced maternal age (AMA) in January 10, 2025 1:49pm History of miscarriage, currently pregna nt January 10, 2025 1:49pm Needle phobia January 10, 2025 1:49p m Obesity affecting January 10 1:49pm January 10, 2025 1:49p m Supervision of high-risk January 10, 2025 1:49pm UTI in January 10, 2025 1:49p m Hot thyroid nodule January 10, 2025 1:49p m Abnormal thyroid stimulating hormone (TS H) level January 10, 2025 1:49pm Amenorrhea January 10, 2025 1:49p m History of anemia January 10, 2025 1:49p m History of colposcopy January 10, 2025 1:4 9pm HPV test positive January 10, 2025 1:49p m Hx of varicose veins of lower extremity January 10, 2025 1:49pm Nodular goiter January 10, 2025 1:49p m Thyroid nodule January 10, 2025 1:49p m Advanced maternal age (AMA) in January 25, 2025 1:51pm History of miscarriage, currently pregna nt January 25, 2025 1:51pm Needle phobia January 25, 2025 1:51 pm Obesity affecting January 25, 025 1:51pm January 25, 2025 1:51 pm Supervision of high-risk January 25, 2025 1:51pm UTI in January 25, 2025 1:51 pm Hot thyroid nodule January 25, 2025 1:51 pm Abnormal thyroid stimulating hormone (TS H) level January 25, 2025 1:51pm History of anemia January 25, 2025 1:51 pm Hx of varicose veins of lower extremity January 25, 2025 1:51pm Advanced maternal age (AMA) in February 21, 2025 10:57am History of miscarriage, currently pregna nt February 21, 2025 10:57am History of pre-eclampsia in prior , currently February 21, 2025 10:57am Needle phobia February 21, 2025 10 :57am Obesity affecting February 21, 2025 10:57am February 21, 2025 10 :57am Supervision of high-risk Augus t 2024 10:57am UTI in February 21, 2025 10 :57am Hot thyroid nodule February 21, 2025 10 :57am Advanced maternal age (AMA) in March 22, 2025 10:18am History of miscarriage, currently pregna nt March 22, 2025 10:18am History of pre-eclampsia in prior , currently March 22, 2025 10:18am Needle phobia March 22, 2025 10:18am Obesity affecting March 222024 10:18am March 22, 2025 10:18am Supervision of high-risk Septe mber 2024 10:18am UTI in March 22, 2025 10:18am Hot thyroid nodule March 22, 2025 10:18am Trauma during April 02, 2025 6:20pm Chief Complaint Admit Date heart check January 10, 2025 1:49p m 16 wk ob January 25, 2025 1:51 pm 20 wk ob February 21, 2025 10 :57am 24wk ob March 22, 2025 10:18am 28wk ob/glucose April 18, 2025 1 0:54am Impaired glucose tolerance during pregna ncy April 26, 2025 9:53am Discuss 3hr glucose *do not shorten Octo 2024 10:40am Reason for Visit Admit Date Advanced maternal age (AMA) in January 10, 2025 1:49pm History of miscarriage, currently pregna nt January 10, 2025 1:49pm Needle phobia January 10, 2025 1:49p m Obesity affecting January 10 1:49pm January 10, 2025 1:49p m Supervision of high-risk January 10, 2025 1:49pm UTI in January 10, 2025 1:49p m Hot thyroid nodule January 10, 2025 1:49p m Abnormal thyroid stimulating hormone (TS H) level January 10, 2025 1:49pm Amenorrhea January 10, 2025 1:49p m History of anemia January 10, 2025 1:49p m History of colposcopy January 10, 2025 1:4 9pm HPV test positive January 10, 2025 1:49p m Hx of varicose veins of lower extremity January 10, 2025 1:49pm Nodular goiter January 10, 2025 1:49p m Thyroid nodule January 10, 2025 1:49p m Advanced maternal age (AMA) in January 25, 2025 1:51pm History of miscarriage, currently pregna nt January 25, 2025 1:51pm Needle phobia January 25, 2025 1:51 pm Obesity affecting January 25, 025 1:51pm January 25, 2025 1:51 pm Supervision of high-risk January 25, 2025 1:51pm UTI in January 25, 2025 1:51 pm Hot thyroid nodule January 25, 2025 1:51 pm Abnormal thyroid stimulating hormone (TS H) level January 25, 2025 1:51pm History of anemia January 25, 2025 1:51 pm Hx of varicose veins of lower extremity January 25, 2025 1:51pm Advanced maternal age (AMA) in February 21, 2025 10:57am History of miscarriage, currently pregna nt February 21, 2025 10:57am History of pre-eclampsia in prior , currently February 21, 2025 10:57am Needle phobia February 21, 2025 10 :57am Obesity affecting February 21, 2025 10:57am February 21, 2025 10 :57am Supervision of high-risk Augus t 2024 10:57am UTI in February 21, 2025 10 :57am Hot thyroid nodule February 21, 2025 10 :57am Advanced maternal age (AMA) in March 22, 2025 10:18am History of miscarriage, currently pregna nt March 22, 2025 10:18am History of pre-eclampsia in prior , currently March 22, 2025 10:18am Needle phobia March 22, 2025 10:18am Obesity affecting March 222024 10:18am March 22, 2025 10:18am Supervision of high-risk Jeanne jalloh 2024 10:18am UTI in March 22, 2025 10:18am Hot thyroid nodule March 22, 2025 10:18am Trauma during April 02, 2025 6:20pm Advanced maternal age (AMA) in April 18, 2025 10:54am History of miscarriage, currently pregna nt April 18, 2025 10:54am History of pre-eclampsia in prior , currently April 18, 2025 10:54am Needle phobia April 18, 2025 1 0:54am Obesity affecting April 10:54am April 18, 2025 1 0:54am Supervision of high-risk Octob er 2024 10:54am Trauma during April 18 10:54am UTI in April 18, 2025 1 0:54am Hot thyroid nodule April 18, 2025 1 0:54am Advanced maternal age (AMA) in April 28, 2025 10:40am History of miscarriage, currently pregna nt April 28, 2025 10:40am History of pre-eclampsia in prior , currently April 28, 2025 10:40am Impaired glucose tolerance in April 28, 2025 10:40am Needle phobia April 28, 2025 1 0:40am Obesity affecting April 10:40am April 28, 2025 1 0:40am Supervision of high-risk Octob er 2024 10:40am Trauma during April 28 10:40am UTI in April 28, 2025 1 0:40am Hot thyroid nodule April 28, 2025 1 0:40am Additional Source Comments INFORMATION SOURCE (unrecogn ized section and content) DATE CREATED AUTHOR 08/26/2021 [facility] DATE CREATED AUTHOR AUTHOR'S ORGANIZ ATION 09/23/2022 [facility] DATE CREATED AUTHOR AUTHOR'S ORGANIZ ATION 03/03/2025 [facility] DATE CREATED AUTHOR AUTHOR'S ORGANIZ ATION 05/18/2025 [place] [facility] Hospital Goals (unrecognized section and content) Type Care Experience SVDLabor Preferences -labor support person: []labor intervention preferences: []pain management options preferred: []cut cord/dad catch: []: []PP control planned: []discussed possible routes of delivery and associated risks: []special requests: [] Care Experience Labor Preferences-CB /BF classes: []labor support person: []labor intervention preferences: []pain management options preferred: []cut cord/dad catch: []: []PP control planned: []discussed possible routes of delivery and associated risks: []special requests: [] Care Team (unrecognized sect ion and content) Care Team Personnel Name: BEATRIZ ESCOBAR MD Member Role: Primary Care Physician Address: Address: [address] [place] [address] [address] [place] [address]- Care Team Related Persons Name: MEDARDO ABAD Address: Home [address] [facility] [place] [address] Care Teams (unrecognized sec tion and content) Team Status: Active Member Role Status Dates Dr. Brian Alcocer MD Family Provider Active Dr. Antony Escobar MD Primary Care Provider Activ e Team Status: Inactive Member Role Status Dates Dr. Antony Escobar MD Primary Care Provider, Refe rring Provider Active Dr. Carmelita Weeks DO Attending Provider Activ e Team Status: Inactive Member Role Status Dates Dr. Antony Escobar MD Primary Care Provider, Refe rring Provider Active Dr. Denis Gladamez MD Attending Provider Active Team Status: Inactive [...] Inactive Member Role Status Dates Dr. Beatriz Esocbar MD Primary Care Provider Acti ve Start: [...] December 27, 2024 End: December 27, 2024 Manda Aguirre NP, MEDICAL ASSISTANT SECRETARY-C Attending Provider Active Start: December 27, 2024 End: December 27, 2024 Team Status: Active Member Role Status Dates Dr. Beatriz Escobar MD Primary Care Provider Acti ve Start: December 27, 2024 Manda Aguirre NP, MEDICAL ASSISTANT SECRETARY-C Attending Provider Active Start: December 27, 2024 Manda Aguirre MEDICAL ASSISTANT SECRETARY, MEDICAL ASSISTANT SECRETARY-C Referring Provider Active Start: December 27, 2024 Team Status: Inactive Member Role Status Dates Dr. Beatriz Escobar MD Primary Care Provider Acti ve Start: December 30, 2024 End: December 30, 2024 Dr. Beatriz Escobar MD Referring Provider Active Start: December 30, 2024 End: December 30, 2024 Dr. Denis Galdamez MD Attending Provider Active Sta rt: December 30, 2024 End: December 30, 2024 Team Status: Active Member Role/Relationship Status Dates Dr. Beatriz Escobar MD Primary Care Provider Acti ve Team Status: Inactive Member Role/Relationship Status Dates Dr. Beatriz Escobar MD Primary Care Provider Acti ve Start: November 24, 2024 End: November 24, 2024 Dr. Baetriz Escobar MD Referring Provider Active Start: November 24, 2024 End: November 24, 2024 Lyssa Aguila CNM Attending Provider Active S tart: November 24, 2024 End: November 24, 2024 Team Status: Inactive Member Role/Relationship Status Dates Dr. Beatriz Escobar MD Primary Care Provider Acti ve Start: November 24, 2024 End: November 24, 2024 Lyssa Aguila CNM Attending Provider Active S tart: November 24, 2024 End: November 24, 2024 Lyssa Aguila CNM Referring Provider Active S tart: November 24, 2024 End: November 24, 2024 Team Status: Inactive Member Role/Relationship Status Dates Dr. Beatriz Escobar MD Primary Care Provider Acti ve Start: December 27, 2024 End: December 27, 2024 Dr. Beatriz Escobar MD Referring Provider Active Start: December 27, 2024 End: December 27, 2024 Manda Aguirre MEDICAL ASSISTANT SECRETARY, MEDICAL ASSISTANT SECRETARY-C Attending Provider Active Start: December 27, 2024 End: December 27, 2024 Team Status: Inactive Member Role/Relationship Status Dates Dr. Beatriz Escobar MD Primary Care Provider Acti ve Start: December 27, 2024 End: December 27, 2024 Manda Aguirre MEDICAL ASSISTANT SECRETARY, MEDICAL ASSISTANT SECRETARY-C Attending Provider Active Start: December 27, 2024 End: December 27, 2024 Manda Aguirre MEDICAL ASSISTANT SECRETARY, MEDICAL ASSISTANT SECRETARY-C Referring Provider Active Start: December 27, 2024 End: December 27, 2024 Team Status: Inactive Member Role/Relationship Status Dates Dr. Beatriz Escobar MD Primary Care Provider Acti ve Start: December 30, 2024 End: December 30, 2024 Dr. Beatriz Escobar MD Referring Provider Active Start: December 30, 2024 End: December 30, 2024 Dr. Denis Galdamez MD Attending Provider Active Sta rt: December 30, 2024 End: December 30, 2024 Team Status: Inactive Member Role/Relationship Status Dates Dr. Beatriz Escobar MD Primary Care Provider Acti ve Start: January 10, 2025 End: January 10, 2025 Dr. Beatriz Escobar MD Referring Provider Active Start: January 10, 2025 End: January 10, 2025 Manda Aguirre NP, MEDICAL ASSISTANT SECRETARY-C Attending Provider Active Start: January 10, 2025 End: January 10, 2025 Team Status: Inactive Member Role/Relationship Status Dates Dr. Beatriz Escobar MD Primary Care Provider Acti ve Start: January 17, 2025 End: January 17, 2025 Dr. Denis Galdamez MD Attending Provider Active Sta rt: January 17, 2025 End: January 17, 2025 Dr. Denis Galdamez MD Referring Provider Active Sta rt: January 17, 2025 End: January 17, 2025 Team Status: Inactive Member Role/Relationship Status Dates Dr. Beatriz Escobar MD Primary Care Provider Acti ve Start: January 25, 2025 End: January 25, 2025 Dr. Beatriz Escobar MD Referring Provider Active Start: January 25, 2025 End: January 25, 2025 Dr. Gaby Trimble MD Attending Provider Active Start: January 25, 2025 End: January 25, 2025 Team Status: Inactive Member Role/Relationship Status Dates Dr. Beatriz Escobar MD Primary Care Provider Acti ve Start: February 21, 2025 End: February 21, 2025 Dr. Beatriz Escobar MD Referring Provider Active Start: February 21, 2025 End: February 21, 2025 Lyssa Aguila CNM Attending Provider Active S tart: February 21, 2025 End: February 21, 2025 Team Status: Active Member Role/Relationship Status Dates Dr. Beatriz Escobar MD Primary Care Provider Acti ve Start: February 21, 2025 Lyssa Aguila CNM Attending Provider Active S tart: February 21, 2025 Lyssa Aguila CNM Referring Provider Active S tart: February 21, 2025 Team Status: Inactive Member Role/Relationship Status Dates Dr. Beatriz Escobar MD Primary Care Provider Acti ve Start: February 21, 2025 End: February 21, 2025 Lyssa Aguila CNM Attending Provider Active S tart: February 21, 2025 End: February 21, 2025 Lyssa Aguila CNM Referring Provider Active S tart: February 21, 2025 End: February 21, 2025 Team Status: Inactive Member Role/Relationship Status Dates Dr. Beatriz Escobar MD Primary Care Provider Acti ve Start: March 22, 2025 End: March 22, 2025 Dr. Beatriz Escobar MD Referring Provider Active Start: March 22, 2025 End: March 22, 2025 Manda Aguirre MEDICAL ASSISTANT SECRETARY, MEDICAL ASSISTANT SECRETARY-C Attending Provider Active Start: March 22, 2025 End: March 22, 2025 Team Status: Active Member Role/Relationship Status Dates Dr. Beatriz Escobar MD Primary care physician Act rhys Team Status: Inactive Member Role/Relationship Status Dates Dr. Beatriz Escobar MD Primary care physician Act rhys Start: December 27, 2024 End: December 27, 2024 Dr. Beatriz Escobar MD Referring Provider Active Start: December 27, 2024 End: December 27, 2024 Manda gAuirre MEDICAL ASSISTANT SECRETARY, MEDICAL ASSISTANT SECRETARY-C Attending physician Active Start: December 27, 2024 End: December 27, 2024 Team Status: Inactive Member Role/Relationship Status Dates Dr. Beatriz Escobar MD Primary care physician Act rhys Start: December 27, 2024 End: December 27, 2024 Manda Aguirre MEDICAL ASSISTANT SECRETARY, MEDICAL ASSISTANT SECRETARY-C Attending physician Active Start: December 27, 2024 End: December 27, 2024 Manda Aguirre MEDICAL ASSISTANT SECRETARY, MEDICAL ASSISTANT SECRETARY-C Referring Provider Active Start: December 27, 2024 End: December 27, 2024 Team Status: Inactive Member Role/Relationship Status Dates Dr. Beatriz Escobar MD Primary care physician Act rhys Start: December 30, 2024 End: December 30, 2024 Dr. Beatriz Escobar MD Referring Provider Active Start: December 30, 2024 End: December 30, 2024 Dr. Denis Galdamez MD Attending physician Active St art: December 30, 2024 End: December 30, 2024 Team Status: Inactive Member Role/Relationship Status Dates Dr. Beatriz Escobar MD Primary care physician Act hrys Start: January 10, 2025 End: January 10, 2025 Dr. Beatriz Escobar MD Referring Provider Active Start: January 10, 2025 End: January 10, 2025 Manda Aguirre MEDICAL ASSISTANT SECRETARY, MEDICAL ASSISTANT SECRETARY-C Attending physician Active Start: January 10, 2025 End: January 10, 2025 Team Status: Inactive Member Role/Relationship Status Dates Dr. Beatriz Escobar MD Primary care physician Act rhys Start: January 17, 2025 End: January 17, 2025 Dr. Denis Galdamez MD Attending physician Active St art: January 17, 2025 End: January 17, 2025 Dr. Denis Galdamez MD Referring Provider Active Sta rt: January 17, 2025 End: January 17, 2025 Team Status: Inactive Member Role/Relationship Status Dates Dr. Beatriz Escobar MD Primary care physician Act rhys Start: January 25, 2025 End: January 25, 2025 Dr. Beatriz Escobar MD Referring Provider Active Start: January 25, 2025 End: January 25, 2025 Dr. Gaby Trimble MD Attending physician Active Start: January 25, 2025 End: January 25, 2025 Team Status: Inactive Member Role/Relationship Status Dates Dr. Beatriz Escobar MD Primary care physician Act rhys Start: February 21, 2025 End: February 21, 2025 Dr. Beatriz Escobar MD Referring Provider Active Start: February 21, 2025 End: February 21, 2025 Lyssa Aguila CNM Attending physician Active Start: February 21, 2025 End: February 21, 2025 Team Status: Inactive Member Role/Relationship Status Dates Dr. Beatriz Escobar MD Primary care physician Act rhys Start: February 21, 2025 End: February 21, 2025 Lyssa Aguila CNM Attending physician Active Start: February 21, 2025 End: February 21, 2025 Lyssa Aguila CNM Referring Provider Active S tart: February 21, 2025 End: February 21, 2025 Team Status: Inactive Member Role/Relationship Status Dates Dr. Beatriz Escobar MD Primary care physician Act rhys Start: March 22, 2025 End: March 22, 2025 Dr. Beatriz Escobar MD Referring Provider Active Start: March 22, 2025 End: March 22, 2025 Manda Aguirre MEDICAL ASSISTANT SECRETARY, MEDICAL ASSISTANT SECRETARY-C Attending physician Active Start: March 22, 2025 End: March 22, 2025 Team Status: Inactive Member Role/Relationship Status Dates Dr. Beatriz Escobar MD Primary care physician Act rhys Start: April 02, 2025 End: April 02, 2025 Dr. William Ceballos MD Attending physician Active Start: April 02, 2025 End: April 02, 2025 Dr. William Ceballos MD Referring Provider Active S tart: April 02, 2025 End: April 02, 2025 Team Status: Active Member Role/Relationship Status Dates Dr. Beatriz Escobar MD Primary care physician Act rhys Start: April 03, 2025 Dr. William Ceballos MD Attending physician Active Start: April 03, 2025 Dr. William Ceballos MD Referring Provider Active S tart: April 03, 2025 Dr. William Ceballos MD Nurse Practitioner Active S tart: April 03, 2025 Team Status: Inactive Member Role/Relationship Status Dates Dr. Beatriz Escobar MD Primary care physician Act rhys Start: January 10, 2025 End: January 10, 2025 Dr. Beatriz Escobar MD Referring Provider Active Start: January 10, 2025 End: January 10, 2025 Manda Aguirre MEDICAL ASSISTANT SECRETARY, MEDICAL ASSISTANT SECRETARY-C Attending physician Active Start: January 10, 2025 End: January 10, 2025 Team Status: Inactive Member Role/Relationship Status Dates Dr. Beatriz Escobar MD Primary care physician Act rhys Start: January 17, 2025 End: January 17, 2025 Dr. Denis Galdamez MD Attending physician Active St art: January 17, 2025 End: January 17, 2025 Dr. Denis Galdamez MD Referring Provider Active Sta rt: January 17, 2025 End: January 17, 2025 Team Status: Inactive Member Role/Relationship Status Dates Dr. Beatriz Escobar MD Primary care physician Act rhys Start: January 25, 2025 End: January 25, 2025 Dr. Beatriz Escobar MD Referring Provider Active Start: January 25, 2025 End: January 25, 2025 Dr. Gaby Trimble MD Attending physician Active Start: January 25, 2025 End: January 25, 2025 Team Status: Inactive Member Role/Relationship Status Dates Dr. Beatriz Escobar MD Primary care physician Act rhys Start: February 21, 2025 End: February 21, 2025 Dr. Beatriz Escobar MD Referring Provider Active Start: February 21, 2025 End: February 21, 2025 Lyssa Aguila CNM Attending physician Active Start: February 21, 2025 End: February 21, 2025 Team Status: Inactive Member Role/Relationship Status Dates Dr. Beatriz Escobar MD Primary care physician Act rhys Start: February 21, 2025 End: February 21, 2025 Lyssa Aguila CNM Attending physician Active Start: February 21, 2025 End: February 21, 2025 Lyssa Aguila CNM Referring Provider Active S tart: February 21, 2025 End: February 21, 2025 Team Status: Inactive Member Role/Relationship Status Dates Dr. Beatriz Escobar MD Primary care physician Act rhys Start: March 22, 2025 End: March 22, 2025 Dr. Beatriz Escobar MD Referring Provider Active Start: March 22, 2025 End: March 22, 2025 Manda Aguirre MEDICAL ASSISTANT SECRETARY, MEDICAL ASSISTANT SECRETARY-C Attending physician Active Start: March 22, 2025 End: March 22, 2025 Team Status: Inactive Member Role/Relationship Status Dates Dr. Beatriz Escobar MD Primary care physician Act rhys Start: April 02, 2025 End: April 02, 2025 Dr. William Ceballos MD Attending physician Active Start: April 02, 2025 End: April 02, 2025 Dr. William Ceballos MD Referring Provider Active S tart: April 02, 2025 End: April 02, 2025 Team Status: Active Member Role/Relationship Status Dates Dr. Beatriz Escobar MD Primary care physician Act rhys Start: April 03, 2025 Dr. William Ceballos MD Attending physician Active Start: April 03, 2025 Dr. William Ceballos MD Referring Provider Active S tart: April 03, 2025 Dr. William Ceballos MD Nurse Practitioner Active S tart: April 03, 2025 Team Status: Inactive Member Role/Relationship Status Dates Dr. Beatriz Escobar MD Primary care physician Act rhys Start: April 18, 2025 End: April 18, 2025 Dr. Beatriz Escobar MD Referring Provider Active Start: April 18, 2025 End: April 18, 2025 Dr. Carmelita Weeks DO Attending physician Acti ve Start: April 18, 2025 End: April 18, 2025 Team Status: Active Member Role/Relationship Status Dates Dr. Beatriz Escobar MD Primary care physician Act rhys Start: April 18, 2025 Dr. Carmelita Weeks DO Attending physician Acti ve Start: April 18, 2025 Team Status: Active Member Role/Relationship Status Dates Dr. Beatriz Escobar MD Primary care physician Act rhys Start: April 26, 2025 Manda Aguirre MEDICAL ASSISTANT SECRETARY, MEDICAL ASSISTANT SECRETARY-C Attending physician Active Start: April 26, 2025 Manda Aguirre MEDICAL ASSISTANT SECRETARY, MEDICAL ASSISTANT SECRETARY-C Referring Provider Active Start: April 26, 2025 Team Status: Inactive Member Role/Relationship Status Dates Dr. Beatriz Escobar MD Primary care physician Act rhys Start: April 28, 2025 End: April 28, 2025 Dr. Beatriz Escobar MD Referring Provider Active Start: April 28, 2025 End: April 28, 2025 Dr. Carmelita Weeks DO Attending physician Acti ve Start: April 28, 2025 End: April 28, 2025 FOR RECORDS PERTAINING TO PATIENTS WHO ARE [...] BE BASED ON THE PRIMARY CLINICAL RECORDS. [facility]. provides no warranty or guarantee of the accuracy or completeness of information in this document.
[2025-05-28 17:23] VITALS: BMI 34.9
[2025-05-28 17:27] VITALS: PULSE 83; RESP 16; TEMP 37.1; O2SAT 98
[2025-05-28 17:31] VITALS: BP 124/69; PULSE 87
[2025-05-28 17:45] VITALS: BP 123/68; PULSE 86
[2025-05-28 18:01] VITALS: BP 122/76; PULSE 66
[2025-05-28 18:08] LABS: Hematocrit 41.1 % (37-47); Hemoglobin 14.3 g/dL (12.0-15.0); Mean Corp Hgb Conc 34.8 g/dL (32-36); Mean Corpuscular Volume 88.4 fL (81-99); Mean Platelet Vol. 10.0 fl (6.2-12.0); Platelet Count 237 K/mm3 (150-450); RBC Distribution Width CV 12.6 % (11.6-14.6); RBC Distribution Width SD 40.5 fl (35.1-43.9); Red Blood Count 4.65 M/mm3 (4.2-5.4); White Blood Count 9.9 K/mm3 (4.4-11.0)
[2025-05-28 18:17] VITALS: BP 121/71; PULSE 66
[2025-05-28 18:27] LABS: Creatinine, Urine (random) 130.00 mg/dL (28.00-217.00); Protein, Urine (Random) 33.4 mg/dL (0.0-12.0); Protein:Creat Ratio 257 mg/g CRE (0-200)
[2025-05-28 18:28] LABS: AST(SGOT) 21 U/L (<=31); Alanine Aminotransfer ALT/SGPT 10 U/L (<=34); Estimated Creatinine Clearance 119.81 ml/min (50-250)
[2025-05-28 18:32] VITALS: BP 122/67; PULSE 74
[2025-05-28 18:53] LABS: Uric Acid 5.8 mg/dL (2.6-6.0)
--- NOTE | 2025-05-28 21:08 | OB.TRI.HP_ITS ---
HPI - General HPI Narrative DEMARCUS ABAD, is a 35 F Ab1 who presents at 34 weeks 5 days gestation for issues with blood pressure elevations at home. She denies any PIH symptoms. She does have a history of PIH in prior pregnancies and has been monitoring her blood pressure at home. Maternal Data Information ROSE Calculator Estimated Delivery Date Method Current WG Current Estimate 07/04/25 LMP (Certain) 34w 5d Other Estimates 07/07/25 Ultrasound #1 34w 2d PFSH PFSH Medical History Hot thyroid nodule Hx of varicose veins of lower extremity Depression Nodular goiter HPV (human papilloma virus) infection Thyroid disorder Pre-eclampsia Abnormal glucose Anemia Home Medications Medication Instructions Recorded Last Taken Type multivit-min no.71-iron fum 28 1 cap PO DAILY 11/12/24 04/01/25 21:00 History mg-folate no.1 1 mg-dha 300 mg 1 cap capsule (PNV-[place]) methimazole 5 mg tablet 2.5 mg (1/2 x 5 mg) PO .ever y 05/23/25 Unknown Rx other day #15 tabs Allergy/AdvReac Type Severity Reaction Status Date / Time Penicillins Allergy Unknown Unknown Verified 05/28/25 17:23 Family History Mother Hypertension Father Diabetes Aunt Thyroid disorder Maternal- unknown type Surgical History History of bunionectomy of right great toe [place] teeth extracted History of colposcopy Social History adopted: No household members: spouse and children housing: house number of children: 2 current occupational status: unemployed current occupation: [employer] pets and animals: Yes (no litter box) pets and animals: cat(s) history of recent travel: No sexually active: Yes Smoking Status: Never smoker alcohol intake: never substance use type: does not use well-balanced diet: daily or most days caffeine: No eating out: 1-3 times/week during the past year weight has: increased > 10 lbs what type of physical activity do you participate in: none [place]/mormon: L[employer]-Day seatbelt use: always do you feel safe at home: Yes 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 Date Name GA/Weeks Outcome Route Bth Weight Infant Gen Labor Lgth Anesthesia Del Locatn Provider FOB Unknown 08/2024 6 spontaneous 04/30/08 Shlomo 36 live - 6# Male epidural [facility] Taye 08/08/21 Emalie 36 live - 6lbs 14oz Female ep idural [facility] [place] Delivery Date: 04/30/08 Last Updated by: Cassidy Aguirre BLOOD BANK WORKER, BLOOD BANK WORKER-C Induced to preeclampsia, teen Delivery Date: 08/08/21 Last Updated by: Ashley FLORES pre-e Visit Details Expected Delivery Route/Plan Labor Preferences- CB/BF classes: [] labor support person: [] labor intervention preferences: [] pain management options preferred: [] cut cord/dad catch: [] : [] PP control planned: [] discussed possible routes of delivery and associated risks: [] special requests: [] Plans Covid status: [] Flu vaccine: [] Tdap vaccine: [] Rhogam: [] LARC form signed: yes Problem list reviewed and updated with the most current plan of care details and appropriate orders placed. Relevant counseling for the gestational age provided. Continue routine care and follow up unless otherwise noted in visit notes/problem list details OB Flowsheet Initial Weight: 168 lb Date - - - - - - - - - - - - - EGA Weight BP Urine Prot - - - - - - - - - - - - - Glucose FHR FuHt Pres Dilation - - - - - - - - - - - - - Effaced St Visit Note 11/24/24 - - - - - - - - - - - - - 8w 2d 168 lb 8 oz (+8 oz) 108/74 - - - - - - - - - - - - - 162 - - - - - - - - - - - - - KW- CRL cons wit h dates. accepts NIPT. 12/27/24 - - - - - - - - - - - - - 13w 0d 166 lb (-2 lb) 115/73 Negative - - - - - - - - - - - - - Negative 160 - - - - - - - - - - - - - -NoVB. Br c onfirm FHT. Nausea persists, no vomiting. Will try B6&unisom. Dysuria: + UA. Culture pending, Rx macrobid. PN labs, NIPT today. 01/10/25 - - - - - - - - - - - - - 15w 0d 165 lb 8 oz (-2 lb 8 oz) 114/68 - - - - - - - - - - - - - 163 - - - - - - - - - - - - - -work in for F HT check. Thought felt movement and then did not. FHT easily found with br 01/25/25 - - - - - - - - - - - - - 17w 1d 167 lb 2 oz (-14 oz) 111/73 Negative - - - - - - - - - - - - - Negative 150 - - - - - - - - - - - - - - no vb lof cr amping 02/21/25 - - - - - - - - - - - - - 21w 0d 170 lb 8 oz (+2 lb 8 oz) 103/68 Negative - - - - - - - - - - - - - Negative 158 21 - - - - - - - - - - - - - KW- no vb/lof/ct x. good fm. will get thyroid labs today. many questions answered. 03/22/25 - - - - - - - - - - - - - 25w 1d 178 lb 1 oz (+10 lb 1 oz) 111/75 Negative - - - - - - - - - - - - - Negative 142 26 - - - - - - - - - - - - - MH-No VB, LOF. G ood FM. Discussed managing sciatic pain. Larc 04/18/25 - - - - - - - - - - - - - 29w 0d 183 lb 9 oz (+15 lb 9 oz) 106/71 Negative - - - - - - - - - - - - - Negative 135 29 - - - - - - - - - - - - - JV- no lof, vagi nal bleeding, or dec fm. declines tdap, flu, and rsv. has not started baby asa yet. encouraged to do so for prevention of pre-e. JV- no lof, vaginal bleeding , or dec fm. declines tdap, flu, and rsv. has not started baby asa yet. encouraged to do so for prevention of pre-e. tsh, free t4,free t3, and 28 week labs today 04/28/25 - - - - - - - - - - - - - 30w 3d 187 lb (+19 lb) 114/71 Negative - -- - - - - - - - - - - - Negative 145 31 - - - - - - - - - - - - - JV- no current l of, vaginal bleeding, or dec fm. thinks had some loss of fluid yesterday but does not think it was her water bag. unemployment specialist was unable to draw her blood for the 3 hr test and sent her home. she is willing to try this again with a new unemployment specialist 05/16/25 - - - - -- - - - - - - - - 33w 0d 190 lb 4 oz (+22 lb 4 oz) 119/80 - - - - - - - - - - - - - 138 33 - - - - - - - - - - - - - JV- patient pass ed her glucola. still taking baby asa and has questions about her urine. no protein today. NST FHR Rate Baby A NST Reactive:: Yes FHR Category:: Category I Assessment & Plan (1) History of pre-eclampsia in prior , currently : COMMENT: Denies any PIH symptoms and NST reactive. PIH labs today normal. Blood pressures on labor and delivery normal. Will discharge to home with routine instructions. Repeat NST with blood pressure check early next week.
--- NOTE | 2025-05-28 21:08 | OB.TRI.NOTE ---
HPI - General HPI Narrative DEMARCUS ABAD, is a 35 F Ab1 who presents at 34 weeks 5 days gestation for issues with blood pressure elevations at home. She denies any PIH symptoms. She does have a history of PIH in prior pregnancies and has been monitoring her blood pressure at home. Maternal Data Information ROSE Calculator Estimated Delivery Date Method Current WG Current Estimate 07/04/25 LMP (Certain) 34w 5d Other Estimates 07/07/25 Ultrasound #1 34w 2d PFSH PFSH Medical History Hot thyroid nodule Hx of varicose veins of lower extremity Depression Nodular goiter HPV (human papilloma virus) infection Thyroid disorder Pre-eclampsia Abnormal glucose Anemia Home Medications Medication Instructions Recorded Last Taken Type multivit-min no.71-iron fum 28 1 cap PO DAILY 11/12/24 04/01/25 21:00 History mg-folate no.1 1 mg-dha 300 mg 1 cap capsule (PNV-[place]) methimazole 5 mg tablet 2.5 mg (1/2 x 5 mg) PO .every 05/23/25 Unknown Rx other day #15 tabs Allergy/AdvReac Type Severity Reaction Status Date / Time Penicillins Allergy Unknown Unknown Verified 05/28/25 17:23 Family History Mother Hypertension Father Diabetes Aunt Thyroid disorder Maternal- unknown type Surgical History History of bunionectomy of right great toe [place] teeth extracted History of colposcopy Social History adopted: No household members: spouse and children housing: house number of children: 2 current occupational status: unemployed current occupation: [employer] pets and animals: Yes (no litter box) pets and animals: cat(s) history of recent travel: No sexually active: Yes Smoking Status: Never smoker alcohol intake: never substance use type: does not use well-balanced diet: daily or most days caffeine: No eating out: 1-3 times/week during the past year weight has: increased > 10 lbs what type of physical activity do you participate in: none [place]/adventist: [employer] seatbelt use: always do you feel safe at home: Yes 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 Date Name GA/Weeks Outcome Route Bth Weight Infant Gen Labor Lgth Anesthesia Del Locatn Provider FOB Unknown 08/2024 6 spontaneous 04/30/08 Shlomo 36 live - 6# Male epidural [facility] Taye 08/08/21 Emalie 36 live - 6lbs 14oz Female epidural [facility] [place] Delivery Date: 04/30/08 Last Updated by: Cassidy Aguirre SHUTTLER CAR, SHUTTLER CAR-C Induced to preeclampsia, teen Delivery Date: 08/08/21 Last Updated by: Ashley FLORES pre-e Visit Details Expected Delivery Route/Plan Labor Preferences- CB/BF classes: [] labor support person: [] labor intervention preferences: [] pain management options preferred: [] cut cord/dad catch: [] : [] PP control planned: [] discussed possible routes of delivery and associated risks: [] special requests: [] Plans Covid status: [] Flu vaccine: [] Tdap vaccine: [] Rhogam: [] LARC form signed: yes Problem list reviewed and updated with the most current plan of care details and appropriate orders placed. Relevant counseling for the gestational age provided. Continue routine care and follow up unless otherwise noted in visit notes/problem list details OB Flowsheet Initial Weight: 168 lb Date <del> </del> EGA Weight BP Urine Prot <del> </del> Glucose FHR FuHt Pres Dilation <del> </del> Effaced St Visit Note 11/24/24 <del> </del> 8w 2d 168 lb 8 oz (+8 oz) 108/74 <del> </del> 162 <del> </del> KW- CRL cons with dates. accepts NIPT. 12/27/24 <del> </del> 13w 0d 166 lb (-2 lb) 115/73 Negative <del> </del> Negative 160 <del> </del> MH-NoVB. Br US confirm FHT. Nausea persists, no vomiting. Will try B6&unisom. Dysuria: + UA. Culture pending, Rx macrobid. PN labs, NIPT today. 01/10/25 <del> </del> 15w 0d 165 lb 8 oz (-2 lb 8 oz) 114/68 <del> </del> 163 <del> </del> -work in for FHT check. Thought felt movement and then did not. FHT easily found with br US 01/25/25 <del> </del> 17w 1d 167 lb 2 oz (-14 oz) 111/73 Negative <del> </del> Negative 150 <del> </del> SM- no vb lof cramping 02/21/25 <del> </del> 21w 0d 170 lb 8 oz (+2 lb 8 oz) 103/68 Negative <del> </del> Negative 158 21 <del> </del> KW- no vb/lof/ctx. good fm. will get thyroid labs today. many questions answered. 03/22/25 <del> </del> 25w 1d 178 lb 1 oz (+10 lb 1 oz) 111/75 Negative <del> </del> Negative 142 26 <del> </del> MH-No VB, LOF. Good FM. Discussed managing sciatic pain. Larc 04/18/25 <del> </del> 29w 0d 183 lb 9 oz (+15 lb 9 oz) 106/71 Negative <del> </del> Negative 135 29 <del> </del> JV- no lof, vaginal bleeding, or dec fm. declines tdap, flu, and rsv. has not started baby asa yet. encouraged to do so for prevention of pre-e. JV- no lof, vaginal bleeding, or dec fm. declines tdap, flu, and rsv. has not started baby asa yet. encouraged to do so for prevention of pre-e. tsh, free t4,free t3, and 28 week labs today 04/28/25 <del> </del> 30w 3d 187 lb (+19 lb) 114/71 Negative <del> </del> Negative 145 31 <del> </del> JV- no current lof, vaginal bleeding, or dec fm. thinks had some loss of fluid yesterday but does not think it was her water bag. study abroad coordinator was unable to draw her blood for the 3 hr test and sent her home. she is willing to try this again with a new study abroad coordinator 05/16/25 <del> </del> 33w 0d 190 lb 4 oz (+22 lb 4 oz) 119/80 <del> </del> 138 33 <del> </del> JV- patient passed her glucola. still taking baby asa and has questions about her urine. no protein today. NST FHR Rate Baby A NST Reactive:: Yes FHR Category:: Category I Assessment & Plan (1) History of pre-eclampsia in prior , currently : COMMENT: Denies any PIH symptoms and NST reactive. PIH labs today normal. Blood pressures on labor and delivery normal. Will discharge to home with routine instructions. Repeat NST with blood pressure check early next week.
== END 2025-05-28 19:13 | disposition home or self-care (01) ==
LOC: WPOUT 17:14 → WP 17:14
PROVIDERS: PCP Family Medicine; Visit Provider Obstetrics & Gynecology
DX: O26.893 Other specified pregnancy related conditions, third trimester (principal); R03.0 Elevated blood-pressure reading, without diagnosis of hypertension; Z3A.34 34 weeks gestation of pregnancy; O26.23 Pregnancy care for patient with recurrent pregnancy loss, third trimester; Z87.59 Personal history of other complications of pregnancy, childbirth and the puerperium
CPT/HCPCS: 36415; 59025; 59050; 82565; 82570; 84156; 84450; 84460; 84550; 85027; 99221; G0378

== ENCOUNTER → 2025-05-30 | Outpatient (CLI) | payer BC, SELFPAY | END | disposition home or self-care (01) | LOC: LABSPEC 16:53 | PROVIDERS: PCP Family Medicine; Referring Provider Obstetrics & Gynecology; Visit Provider Obstetrics & Gynecology | DX: O09.92 Supervision of high risk pregnancy, unspecified, second trimester (principal); Z3A.00 Weeks of gestation of pregnancy not specified | CPT/HCPCS: 87081 ==

== ENCOUNTER → 2025-05-30 | Outpatient (CLI) | payer BC, SELFPAY | END | disposition home or self-care (01) | PROVIDERS: PCP Family Medicine; Visit Provider Obstetrics & Gynecology | DX: E04.1 Nontoxic single thyroid nodule (principal) | CPT/HCPCS: 36415; 86376 ==

== ENCOUNTER → 2025-06-10 | Outpatient (CLI) | payer BC, SELFPAY ==
[2025-06-10 13:59] LABS: Hematocrit 40.6 % (37-47); Hemoglobin 13.7 g/dL (12.0-15.0); Mean Corp Hgb Conc 33.7 g/dL (32-36); Mean Corpuscular Volume 90.0 fL (81-99); Mean Platelet Vol. 10.4 fl (6.2-12.0); Platelet Count 215 K/mm3 (150-450); RBC Distribution Width CV 12.8 % (11.6-14.6); RBC Distribution Width SD 41.6 fl (35.1-43.9); Red Blood Count 4.51 M/mm3 (4.2-5.4); White Blood Count 8.3 K/mm3 (4.4-11.0)
[2025-06-10 14:48] LABS: AST(SGOT) 21 U/L (<=31); Alanine Aminotransfer ALT/SGPT 13 U/L (<=34); Albumin, Serum 3.6 g/dL (3.5-5.0); Alkaline Phosphatase 114 U/L (35-104); Anion Gap 12 (5-15); BUN 7 mg/dL (4-19); BUN/Creat Ratio 11.3 RATIO (10-20); Calcium,Total 9.5 mg/dL (7.6-11.0); Carbon Dioxide 20.3 mmol/L (21.0-32.0); Chloride 103 mmol/L (98-108); Globulin 3.1 g/dL (2.2-4.2); Glucose 96 mg/dL (70-99); Potassium 4.1 mmol/L (3.3-5.1)
[2025-06-10 14:49] LABS: Creatinine, Urine (random) 114.00 mg/dL (28.00-217.00); Protein, Urine (Random) 20.2 mg/dL (0.0-12.0); Protein:Creat Ratio 177 mg/g CRE (0-200)
== END | disposition home or self-care (01) ==
LOC: BWCLAB 13:40
PROVIDERS: Obstetrics & Gynecology; PCP Family Medicine; Visit Provider Obstetrics & Gynecology
DX: O09.299 Supervision of pregnancy with other poor reproductive or obstetric history, unspecified trimester (principal); Z3A.00 Weeks of gestation of pregnancy not specified
CPT/HCPCS: 36415; 80053; 82570; 84156; 85027

== ENCOUNTER 2025-06-12 12:30 | Outpatient (CLI) | payer BC, SELFPAY ==
[2025-06-12 12:38] VITALS: BMI 36.6
--- OUTSIDE RECORDS SUMMARY | 2025-06-12 12:38 | XMS RPT_ITS | CCD ---
Author Organization [facility] Care Team Providers Care Social Media Intern Name Role Phone SHAWN JOHNSON, DR HENDERSON [...] Provider Atilio JOHNSON, Dr. Griffin Attending Provider [phone] CARLA, MANDA S Referring Unavailable BEATRIZ ESCOBAR Primary Care Unavailabl YASMEEN Irizarry Attending Unavailable SONJA HU Attending Unavailable BEATRIZ ESCOBAR Primary Care Unavailabl e MANDA AGUIRRE Referring Unavailable Shawn JOHNSON, [facility] Physicia n Shawn JOHNSON, Dr. [facility] Referring Provider Carla HIGH SCHOOL BIOLOGY TEACHER-CManda Attending Physician [phone] King ALEX, Dr. Barrios Attending Physician Atilio JOHNSON, Dr. Griffin Attending Physician Mingo VIRK, Lyssa Attending Physician [phone] Lyssa Aguila CNM Referring Provider [phone] Tucker JOHNSON, Dr. Thomas Attending Physician Unavailkavitha Ceballos MD, Dr. Thomas Referring Provider Unavailab jeramie Ceballos MD, Dr. Thomas Nurse Practitioner Unavailab jeramie Escobar MD, [facility] Physicia n Shawn JOHNSON, Dr. [facility] Referring Provider Carla HIGH SCHOOL BIOLOGY TEACHER-CManda Attending Physician [phone] King ALEX, Dr. Barrios Attending Physician Dr. Carmelita Weeks DO Attending Physician Carla HIGH SCHOOL BIOLOGY TEACHER-CManda Referring Provider [phone] Beatriz Escobar Primary Care [...] Unavailabl e Carmelita Weeks Attending Unavailabl e [place], [place] Primary [facility] Unavailable [facility] Primary Care Unavailable Vande Velde, Carmelita Attending Unavailabl e Vande Velde, Carmelita Referring Unavailabl e Vande Velde, Carmelita Attending Unavailabl e [place], [place] Primary Care Unavailable [facility], [place] Primary Care Unavailable [place], [facility] Referring Unavailable Vande Raeann, Carmelita Attending Unavailabl e [place], [place] Primary Care Unavailable William Ceballos Referring Unavailable William Ceballos Attending Unavailable William Ceballos Consulting Unavailable [place] Referring Unavailable Lyssa Aguila Attending Unavailable [facility] Primary Care Unavailable [facility], [place] Primary Care Unavailable [place], [place] Referring Unavailable AustinManda montenegro Attending Unavailable [facility] Primary Care Unavailable [facility], [place] Referring Unavailable Denis Galdamez Attending Unavailable Manda Aguirre Attending Unavailable [facility], [place] Primary [facility] Unavailable [facility], [place] Referring Unavailable [facility], [place] Primary Care Unavailable [facility], [place] Referring Unavailable Gaby Trimble Attending Unavailable Vande Velde, Carmelita Attending Unavailabl e [place], [place] Primary Care Unavailable [facility], [facility] Referring Unavailable [facility], [place] Primary Care Unavailable Lyssa Aguila Referring Unavailable Lyssa Aguila Attending Unavailable [facility] Primary Care Unavailable Lyssa Aguila Referring Unavailable Lyssa Aguila Attending Unavailable CarlaManda Referring Unavailable Manda Aguirre Attending Unavailable [facility], [place] Primary Care Unavailable [place], [place] Primary Care Unavailable Manda Aguirre Referring Unavailable Manda Aguirre Attending Unavailable Denis Galdamez Attending Unavailable [facility] Primary Care Unavailable Denis Galdamez Referring Unavailable [facility] Primary Care Unavailable William Ceballos Referring Unavailable William Ceballos Attending Unavailable [facility] Primary Care Unavailable [facility], [place] Referring Unavailable Lyssa Aguila Attending Unavailable Allergies Allergy Classification Reported Allergen(s) Allergy Type Date of Onset Reaction(s) Facility (17 sources) Penicillins Allergy to substance 09-19-2021 Unknown [facility] Comment on above: as a (1 source) Penicillin; Translations: [penicillins] Drug Allergy [facility] (1 source) Penicillins Drug allergy (disorder) 05-16-2025 [facility] Repository Medications Current Medications Medication Drug [...] Ordered Start: 05-10-2022 take 1 tablet by [facility] once daily Multivitamin Active 1 TABLET PO DAILY May 10, 2022 12:00am Mv-Mins 22-Nabo-Ijxxr No.1-D garvey (Pnv-[place]) 28-1-300 mg capsule (13 sources) Start: 11-12-2024 Mv-Mins 71-Iro n-Folic No.1-Dha (Pnv-[place]) 28-1-300 mg capsule Active 1 NMA PO DAILY November 12, 2024 12:00am Complies with drug therapy Start: 11-12-2024 Mv-Mins 71-Iro n-Folic No.1-Dha (Pnv-[place]) 28-1-300 mg capsule Active NMA PO November 12, 2024 12:00am [place] (Nk) (2 sources) Start: 09-19-2021 [place] (Nk) A ctive September 19, 2021 12:00am [...] 1 tablet by mouth once daily Prenat.Vits,Marcel,Mi x-Wirz-Vnedn Discontinued 1 TABLET PO DAILY January 11, 2021 12:00am August 16, 2021 2:41pm Prenat.Vits,Marcel,Min -Iron-Folic tablet (13 sources) Start: 01-11-2021 End: 08-16-2021 Prenat.Vits,Marcel,Mi n-Jvbf-Soois tablet Discontinued 1 {tbl} PO DAILY January 11, 2021 12:00am August 16, 2021 2:41pm Start: 01-11-2021 End: 08-16-2021 Prenat.Vits,Marcel,Usq-Blul-Bqj ic tablet Discontinued 1 {tbl} PO DAILY [...] (HPV)] 01-11-2021 Episodic Comment on above: 04/2020 [facility], record scanned Residual codes; unclassified (20 sources) Past history of procedure; Translations: [Other specified postprocedural states] 01-11-2021 Episodic Comment on above: [facility] pap 04/2020 pos HPV, neg pap. Neg colp wo bx per RR at [facility] 05/2020 Residual codes; unclassified (1 source) 33 [...] Test Name Value Interpretation Reference Range Facility [employer] Office Visit Reporton 05-16-2025 [employer] Office Visit Report [facility]'s [address], [address] [place] [address] OFFICE VISIT Date of Service: 05/16/25 MR#: [id number] Acct: [id number] Name: DEMARCUS ABAD Rep #: [id number] : 1990 Provider: Dr. Carmelita Rossi DO Age/Sex: 35/F Location: [facility] [place], [place] Status: Signed Intake Vital Signs 03/22/25 10:36 04/28/25 10:42 05/16/25 10:09 Height 5 ft 2 in 5 ft 2 in 5 ft 2 in Weight: 190 lb 4 oz BMI 34.7 BP 119/80 Intake Visit Reasons: 32 WK OB 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 Required: No Is patient in pain?: No Allergies Penicillins Allergy (Unknown, Verified 05/16/25 10:10) Unknown Medications ???Medication ???Instructions ???Recorded ???Confirmed ???Type multivit-min no.71-iron fum 28 1 cap PO DAILY 11/12/24 05/16/25 H istory mg-folate no.1 1 mg-dha 300 mg capsule (PNV-[place]) methimazole 5 mg tablet 2.5 mg (1/2 [...] History of bunionectomy of right great toe Ophelia teeth extracted History of colposcopy Family History Mother Hypertension Father Diabetes Aunt Thyroid disorder Maternal- unknown type Social History adopted: No household members: spouse and children housing: house number of children: 2 current occupational status: unemployed current occupation: [employer] pets and animals: Yes (no litter box) [...] physical activity do you participate in: none [place]/hoahaoism: Restorationism seatbelt use: always do you feel safe at home: Yes 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 Date Name GA/Weeks Outcome Route Bth Weight Infant Gen Labor Lgth Anesthesia Del Locatn Provider FOB Unknown 08/2024 6 spontaneous 04/30/08 Shlomo 36 live - 6# Male epidural [facility] Taye 08/08/21 Emalie 36 live - 6lbs 14oz Female epidural [facility] Va nde Velde Delivery Date: 04/30/08 Last Updated by: Manda Aguirre HIGH SCHOOL BIOLOGY TEACHER, HIGH SCHOOL BIOLOGY TEACHER-C Induced to preeclampsia, teen Delivery Date: 08/08/21 [...] 115/73 Negative (more content not included)... Normal [facility] Gestational GTT 3HR 100gon 1 07-09-2024 GEST GTT 100gm Normal [facility] Comment on above: Order Comment: Y [...] By: #### L 501.0900, M100.2200, L7000.1800 #### [facility] [address] [place], [address] Laboratory - Chemistry and C hemistry - challengeOrdered By: Carmelita Cary on 04-28-2025 Glucose Ql (U) Negative [facility] - UrinalysisOrder ed By: Carmelita Cary on 04-28-2025 Protein Ql (U) Negative [facility] [employer] Office Visit Reporton 04-28-2025 [employer]actical [employer] Office Visit Report [facility]'s [address], [address] [place] [address] OFFICE VISIT Date of Service: 04/28/25 MR#: [id number] Acct: [id number] Name: DEMARCUS ABAD Rep #: [id number] : 1990 Provider: Dr. Carmelita Rossi DO Age/Sex: 35/F [place] [facility] [place] Status: Signed Intake Vital Signs 04/18/25 10:59 04/28/25 10:42 04/28/25 10:42 Height 5 ft 2 in 5 ft 2 in 5 ft 2 in Weight: 187 lb BMI 34.2 BP 114/71 Intake Visit Reasons: Discuss 3hr glucose *do not shorten 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 Required: No Is patient in pain?: No Allergies Penicillins Allergy (Unknown, Verified 04/28/25 10:41) Unknown Medications ???Medication ???Instructions ???Recorded ???Confirmed ???Type multivit-min no.71-iron fum 28 1 cap PO DAILY 11/12/24 04/28/25 H istory mg-folate no.1 1 mg-dha 300 mg capsule (PNV-[place]) methimazole 5 mg tablet 2.5 mg (1/2 [...] History of bunionectomy of right great toe Ophelia teeth extracted History of colposcopy Family History Mother Hypertension Father Diabetes Aunt Thyroid disorder Maternal- unknown type Social History adopted: No household members: spouse and children housing: house number of children: 2 current occupational status: unemployed current occupation: [employer] pets and animals: Yes (no litter box) [...] physical activity do you participate in: none [place]/hoahaoism: Restorationism seatbelt use: always do you feel safe [...] Shlomo 36 live - 6# Male epidural [facility] Taye 08/08/21 Emalie 36 live - 6lbs 14oz Female epidural [facility] [place] n[place] Delivery Date: 04/30/08 Last Updated by: Manda Aguirre HIGH SCHOOL BIOLOGY TEACHER, HIGH SCHOOL BIOLOGY TEACHER-C Induced to preeclampsia, teen Delivery Date: 08/08/21 [...] -???-???-???-???-??? -???-? (more content not included)... Normal [facility] Gestational GTT 3HR 100gon 1 GEST GTT 100gm Normal [facility] Comment on above: Order Comment: Y [...] By: #### L 501.0900, M100.2200, L7000.1800 #### [facility] [address] [place], [address] Quantitative serum or plasma 3 hour gestational glucose tolerance panelOrdered By: Manda Aguirre on 04-26-2025 Glucose tolerance 3 hours gestational panel See comment [facility] Comment on above: FASTING 89 Col: 04/07 07/31 1004GLUCOSE TOLERANCE TEST FOR Reference Interval GESTATIONAL DIABETES Fasting <105 mg/dL 1 hour <190 mg/dl 2 hour <165 mg/dl 3 hour <145 mg/dl Absolute lymphocyte countOrd ered By: Manda Aguirre on 04-18-2025 Lymphocytes Auto (Unsp spec) [#/Vol] 1.46 10*3/uL 0.83-4.51 [facility] Absolute neutrophil countOrd ered By: Manda Aguirre on 04-18-2025 Neutrophils (Bld) [#/Vol] 6.5 10*3/uL 2.0-7.7 [facility] Automated lymphocyte count a s percentage of total leukocytesOrdered By: Manda Aguirre on 04-18-2025 Lymphocytes/100 WBC Auto (Unsp spec) 16.9 % Low 19-41 [facility] Basophil percentageOrdered B y: Manda Aguirre on 04-18-2025 Basophils/100 WBC (Bld) 0.2 % 0-1 [facility] CBC W/Diff, Automatedon 04-06 Absolute Lymph 1.46 X10 3/uL Normal 0.83-4.51 [facility] Comment on above: Performed By: #### L 501.0900, M100.2200, L7000.1800 #### [facility] [address] [place], [address] Absolute Neut 6.5 X10 3/uL Normal 2.0-7.7 [facility] Comment on above: Performed By: #### L 501.0900, M100.2200, L7000.1800 #### [facility] [address] [facility] [place], [address] Basophils/100 WBC (Bld) 0.2 % Normal 0-1 [facility] Comment on above: Performed By: #### L 501.0900, M100.2200, L7000.1800 #### [facility] [address] [place], [address] Eosinophils/100 WBC (Bld) 0.5 % Normal 0-5 [facility] Comment on above: Performed By: #### L 501.0900, M100.2200, L7000.1800 #### [facility] [address] [place], [address] Erythrocyte distribution width (RBC) [Ratio] 12.5 % Normal 11.6-14.6 [facility] Comment on above: Performed By: #### L 501.0900, M100.2200, L7000.1800 #### [facility] [address] [place], [address] Hematocrit (Bld) [Volume fraction] 36.6 % Low 37-47 [facility] Comment on above: Performed By: #### L 501.0900, M100.2200, L7000.1800 #### [facility] [address] [place], [address] Hemoglobin (Bld) [Mass/Vol] 12.5 g/dL Normal 12.0-15.0 [facility] Comment on above: Performed By: #### L 501.0900, M100.2200, L7000.1800 #### [facility] [address] [place], [address] IG% 0.700 Normal 0.0-0.9 [facility] Comment on above: Result Comment: IG% - Immature Granulocytes (promyelocytes, myelocytes and metamyelocytes) > 1% indicates that a LEFT SHIFT is Present. Performed By: #### L 501.0900, M100.2200, L7000.1800 #### [facility] [address] [place], [address] Lymphocytes/100 WBC (Bld) 16.9 % Low 19-41 [facility] Comment on above: Performed By: #### L 501.0900, M100.2200, L7000.1800 #### [facility] [address] [place], [address] MCH (RBC) [Entitic mass] 30.6 pg Normal 27.0-32.0 [facility] Comment on above: Performed By: #### L 501.0900, M100.2200, L7000.1800 #### [facility] [address] [place], [address] MCHC (RBC) [Mass/Vol] 34.2 g/dL Normal 32-36 [facility] Comment on above: Performed By: #### L 501.0900, M100.2200, L7000.1800 #### [facility] [address] [place], [address] MCV (RBC) [Entitic vol] 89.5 fL Normal 81-99 [facility] Comment on above: Performed By: #### L 501.0900, M100.2200, L7000.1800 #### [facility] [address] [place], [address] Monocytes/100 WBC (Bld) 6.6 % Normal 0-10 [facility] Comment on above: Performed By: #### L 501.0900, M100.2200, L7000.1800 #### [facility] [address] [place], [address] Neutrophils/100 WBC (Bld) 75.1 % High 47-70 [facility] Comment on above: Performed By: #### L 501.0900, M100.2200, L7000.1800 #### [facility] [address] [place], [address] Nucleated RBC (Bld) [#/Vol] 0 10*3/uL Normal 0-5 [facility] Comment on above: Performed By: #### L 501.0900, M100.2200, L7000.1800 #### [facility] [address] [place], [address] Platelet mean volume (Bld) [Entitic vol] 10.0 fL Normal 6.2-12.0 [facility] Comment on above: Performed By: #### L 501.0900, M100.2200, L7000.1800 #### [facility] [address] [place], [address] Platelets (Bld) [#/Vol] 228 10*3/uL Normal 150-450 [facility] Comment on above: Performed By: #### L 501.0900, M100.2200, L7000.1800 #### [facility] [address] [place], [address] RBC (Bld) [#/Vol] 4.09 10*6/uL Low 4.2-5.4 [facility] Comment on above: Performed By: #### L 501.0900, M100.2200, L7000.1800 #### [facility] [address] [place], [address] RDW SD 41.0 fl Normal 35.1-43.9 [facility] Comment on above: Performed By: #### L 501.0900, M100.2200, L7000.1800 #### [facility] [address] [place], [address] WBC (Bld) [#/Vol] 8.6 10*3/uL Normal 4.4-11.0 [facility] Comment on above: Performed By: #### L 501.0900, M100.2200, L7000.1800 #### [facility] [address] [place], [address] Eosinophil percentageOrdered By: Manda Aguirre on 04-18-2025 Eosinophils/100 WBC (Bld) 0.5 % 0-5 [facility] Erythrocyte distribution wid th ratioOrdered By: Manda Aguirre on 04-18-2025 Erythrocyte distribution width (RBC) [Ratio] 12.5 % 11.6-14.6 [facility] Erythrocyte distribution wid th standard deviationOrdered By: Manda Aguirre on 04-18-2025 Erythrocyte distribution width (RBC) [Ratio] 41.0 fl 35.1-43.9 [facility] Free K8Elulsid By: Denis Galdamez on 04-18-2025 Free T3 [Mass/Vol] 2.8 pg/mL 2.18-3.98 [facility] Free T3on 04-18-2025 Free T3 [Mass/Vol] 2.8 pg/mL Normal 2.18-3.98 [facility] Comment on above: Performed By: #### L 501.0900, M100.2200, L7000.1800 #### [facility] [address] [facility] [place], [place], [id number] Glucose Challenge Gest 1H 50 tatyana 04-18-2025 GLU GEST 50g 1H 136 mg/dL Normal 70-140 [facility] Comment on above: Result Comment: AMENDED REPORT 04/18/25 1330 GLU GEST 50g 1H previously reported as: 136 mg/dL Performed By: #### L 501.0900, M100.2200, L7000.1800 #### [facility] [address] [facility] [place], [place], [address] Glucose measurement at 2 meir rs post-dose gestational glucose tolerance testOrdered By: Manda Aguirre on 04-18-2025 Glucose [Mass/Vol] 142 mg/dL High 70-140 [facility] Comment on above: Previous reported re sult: 136 mg/dLEdited by: ALEXANDER on 04/18/25:1330 AMENDED REPORT 04/18/25 1330 GLU GEST 50g 1H previously reported as: 136 mg/dL HIVon 04-18-2025 HIV Non-Reactive Normal Nonreactive [facility] Comment on above: Result Comment: Non- Reactive Reactive Repeatedly reactive samples must be confirmed according to CDC recommended confirmatory algorithms. The subresults for either HIVAG or AHIV can be used as an aid in the selection of the confirmation algorithm for reactive samples. Send out specimens with Reactive results to [facility] for confirmation. Order the HIV antibody detection and differentiation: lc#[id number] Performed By: #### L 501.0900, M100.2200, L7000.1800 #### [facility] [address] [place], [address] Hematocrit Auto (Bld) [Volum e fraction]Ordered By: Manda Aguirre on 04-18-2025 Hematocrit (Bld) [Volume fraction] 36.6 % Low 37-47 [facility] Hemoglobin measurementOrdere d By: Manda Aguirre on 04-18-2025 Hemoglobin (Bld) [Mass/Vol] 12.5 g/dL 12.0-15.0 [facility] Immature granulocytes/100 WB C Auto (Bld)Ordered By: Manda Aguirre on 04-18-2025 Immature granulocytes/100 WBC (Bld) 0.700 % 0.0-0.9 [facility] Comment on above: IG% - Immature Granu locytes (promyelocytes, myelocytes and metamyelocytes) > 1% indicates that a LEFT SHIFT is Present. Laboratory - Chemistry and C hemistry - challengeOrdered By: Carmelita Cary on 04-18-2025 Glucose Ql (U) Negative [facility] - UrinalysisOrder ed By: Carmelita Cary on 04-18-2025 Protein Ql (U) Negative [facility] MCV (mean corpuscular volume ) determinationOrdered By: Manda Aguirre on 04-18-2025 MCV (RBC) [Entitic vol] 89.5 fL 81-99 [facility] Mean corpuscular hemoglobin (MCH) determinationOrdered By: Manda Aguirre on 04-18-2025 MCH (RBC) [Entitic mass] 30.6 pg 27.0-32.0 [facility] Mean corpuscular hemoglobin concentration (MCHC) determinationOrdered By: Manda Aguirre on 04-18-2025 MCHC (RBC) [Mass/Vol] 34.2 g/dL 32-36 [facility] Mean platelet volume determi nationOrdered By: Manda Aguirre on 04-18-2025 Platelet mean volume (Bld) [Entitic vol] 10.0 fL 6.2-12.0 [facility] Monocyte percentageOrdered B y: Manda Aguirre on 04-18-2025 Monocytes/100 WBC (Bld) 6.6 % 0-10 [facility] Neutrophil percentageOrdered By: Manda Aguirre on 04-18-2025 Neutrophils/100 WBC (Bld) 75.1 % High 47-70 [facility] No Panel InformationOrdered By: Manda Aguirre on 04-18-2025 HIV (1&2) Antibody Non-Reactive Nonreactive [facility] Comment on above: Non-ReactiveReactive Repeatedly reactive samples must be confirmed according to CDC recommended confirmatory algorithms. The subresults for either HIVAG or AHIV can be used as an aid in the selection of the confirmation algorithm for reactive samples.Send out specimens with Reactive results to [facility] for confirmation.Order the HIV antibody detection and differentiation: #[id number] Nucleated red blood cell per centageOrdered By: Manda Aguirre on 04-18-2025 Nucleated RBC/100 WBC (Bld) [Ratio] 0 % 0-5 [facility] [employer] Office Visit Reporton 04-18-2025 [employer]actical [employer] Office Visit Report [facility]'s [address], [address] [place] [address] OFFICE VISIT Date of Service: 04/18/25 MR#: [id number] Acct: [id number] Name: DEMARCUS ABAD Rep #: [id number] : 1990 Provider: Dr. Carmelita Rossi DO Age/Sex: 35/F Location: [facility] [place] [place] Status: Signed Intake Vital Signs 01/25/25 13:59 04/02/25 18:35 04/18/25 10:56 04/18/25 10:59 Height 5 ft 2 in 5 ft 2 in 5 ft 2 in 5 ft 2 in Weight: 183 lb 9 oz BMI 33.5 BP 106/71 Intake Visit Reasons: 28wk ob/glucose 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 Required: No Is patient in pain?: No Allergies Penicillins Allergy (Unknown, Verified 04/18/25 10:56) Unknown Medications ???Medication ???Instructions ???Recorded ???Confirmed ???Type multivit-min no.71-iron fum 28 1 cap PO DAILY 11/12/24 04/18/25 H istory mg-folate no.1 1 mg-dha 300 mg capsule (PNV-[place]) methimazole 5 mg tablet 2.5 mg (1/2 [...] History of bunionectomy of right great toe Ophelia teeth extracted History of colposcopy Family History Mother Hypertension Father Diabetes Aunt Thyroid disorder Maternal- unknown type Social History adopted: No household members: spouse and children housing: house number of children: 2 current occupational status: unemployed current occupation: [employer] pets and animals: Yes (no litter box) [...] physical activity do you participate in: none [place]/hoahaoism: Restorationism seatbelt use: always do you feel safe at home: Yes additional social history: [employer] History 4 Elective abortions Hx Para 2 Spontaneous abortions 1 Hx # Term Pregnancies Ectopic pregnancies Hx # Pregnancies 2 Multiple births # of living children 2 Past Pregnancies Del. Date Name GA/Weeks Outcome Route Bth Weight Infant Gen Labor Lgth Anesthesia Del Locatn Provider FOB Unknown 08/2024 6 spontaneous 04/30/08 Shlomo 36 live - 6# Male epidural [facility] Taye 08/08/21 Emalie 36 live - 6lbs 14oz Female epidural [facility] [place] n[place]de Delivery Date: 04/30/08 Last Updated by: Manda Aguirre HIGH SCHOOL BIOLOGY TEACHER, HIGH SCHOOL BIOLOGY TEACHER-C Induced to preeclampsia, teen Delivery Date: 08/08/21 [...] -???-???- 13 (more content not included)... Normal [facility] Platelet countOrdered By: Kenneth Aguirre on 04-18-2025 Platelets (Bld) [#/Vol] 228 10*3/uL 150-450 [facility] RBC Auto (Bld) [#/Vol]Ordere d By: Manda Aguirre on 04-18-2025 RBC (Bld) [#/Vol] 4.09 10*6/uL Low 4.2-5.4 [facility] Syphilis Antibodieson 2024 Syphilis Abs Non-Reactive Normal Nonreactive [facility] [facility] Comment on above: Performed By: #### L 501.0900, M100.2200, L7000.1800 #### [facility] [address] [place], [place], [id number] T4 Free Directon 04-18-2025 T4 FREE DIRECT 0.70 ng/dL Low 0.76-1.46 [facility] Comment on above: Performed By: #### L 501.0900, M100.2200, L7000.1800 #### [facility] [address] [place], [address] T4 freeOrdered By: Denis Galdamez on 04-18-2025 Free T4 [Mass/Vol] 0.70 ng/dL Low 0.76-1.46 [facility] TSH DL <= 0.005 mIU/L QnOrde red By: Denis Galdamez on 04-18-2025 TSH Qn 0.426 uIU/mL 0.300-4.200 [facility] Thyroid Stim Hormone (TSH)on 04-18-2025 TSH 0.426 uIU/mL Normal 0.300-4.200 [facility] Comment on above: Performed By: #### L 501.0900, M100.2200, L7000.1800 #### [facility] [address] [place], [address] White blood cell (WBC) count Ordered By: Manda Aguirre on 04-18-2025 WBC (Bld) [#/Vol] 8.6 10*3/uL 4.4-11.0 [facility] OB Triage Physician Noteon 0 04-03-2025 OB Triage Physician Note [facility] Medical Records Department [address] [place] [address] OB Triage Physician Note 04/03/25 1535 MR#: [id number] Acct: [id number] Name: DEMARCUS ABAD Rep #: [id number] : 1990 35 From: William Ceballos MD PCP: Dr. Beatriz Escobar MD Status:[facility] Location: [facility] DEMARCUS ABAD, is a 35 F G4, [...] 1 mg-dha 300 mg 1 cap capsule (PNV-[place]) methimazole 5 mg tablet 2.5 mg (1/2 x 5 mg) PO .every 01/0403/30/25 08:00 Rx other day #15 tabs 2.5 mg Allergy/AdvReac Type Severity Reaction Status Date / Time Penicillins Allergy Unknown Unknown Verified 04/02/25 18:30 Family History Mother Hypertension Father Diabetes Aunt Thyroid disorder Maternal- unknown type Surgical History History of bunionectomy of right great toe Ophelia teeth extracted History of colposcopy Social History adopted: No household members: spouse and children housing: house number of children: 2 current occupational status: unemployed current occupation: [employer] pets and animals: Yes (no litter box) [...] physical activity do you participate in: none [place]/hoahaoism: Restorationism seatbelt use: always do you feel safe at home: Yes 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 Date Name GA/Weeks Outcome Route Bth Weight Gen Labor Lgth Anesthesia Del Locatn Provider FOB Unknown 08/2024 6 spontaneous 04/30/08 Shlomo 36 live - 6# Male epidural [facility] Taye 08/08/21 Emalie 36 live - 6lbs 14oz Female epidural [facility] [place] Delivery Date: 04/30/08 Last Updated by: Manda Aguirre [employer]IGH SCHOOL BIOLOGY TEACHER, HIGH SCHOOL BIOLOGY TEACHER-C Induced to preeclampsia, teen Delivery Date: 08/08/21 [...] Note 11/24/24 (more content not included)... Normal [facility] - Chemistry and C hemistry - challengeOrdered By: Manda Aguirre on 03-22-2025 Glucose Ql (U) Negative [facility] - UrinalysisOrder ed By: Manda Aguirre on 03-22-2025 Protein Ql (U) Negative [facility] [employer] Office Visit Reporton 03-22-2025 [employer] Office Visit Report [facility]'s [address], [address] [place] [address] OFFICE VISIT Date of Service: 03/22/25 MR#: [id number] Acct: [id number] Name: DEMARCUS ABAD Rep #: [id number] : 1990 Provider: LUCILA arriola Age/Sex: 35/F Location: [facility] [place], [place] Status: Signed Intake Vital Signs 01/25/25 13:59 02/21/25 11:01 03/22/25 10:32 03/22/25 10:36 Height 5 ft 2 in 5 ft 2 in 5 ft 2 in 5 ft 2 in Weight: 178 lb 1 oz BMI 32.5 BP 111/75 Intake Visit Reasons: 24wk ob Chief Complaint: 24 Week OB 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 Required: No Is patient in pain?: No Allergies Penicillins Allergy (Unknown, Verified 03/22/25 10:35) Unknown Medications ???Medication ???Instructions ???Recorded ???Confirmed ???Type ferrous sulfate 325 mg (65 mg 325 mg PO DAILY 09/05/23 03/22/25 History iron) tablet (Feosol) multivit-min no.71-iron fum 28 cap PO 11/12/24 03/22/25 History mg-folate no.1 1 mg-dha 300 mg capsule (PNV-[place]) methimazole 5 mg tablet 2.5 mg (1/2 [...] History of bunionectomy of right great toe Ophelia teeth extracted History of colposcopy Family History Mother Hypertension Father Diabetes Aunt Thyroid disorder Maternal- unknown type Social History adopted: No household members: spouse and children housing: house number of children: 2 current occupational status: unemployed current occupation: [employer] pets and animals: Yes (no litter box) [...] physical activity do you participate in: none [place]/hoahaoism: Restorationism seatbelt use: always do you feel safe at home: Yes 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 Date Name GA/Weeks Outcome Route Bth Weight Infant Gen Labor Lgth Anesthesia Del Locatn Provider FOB Unknown 08/2024 6 spontaneous 04/30/08 Shlomo 36 live - 6# Male epidural [facility] Taye 08/08/21 Emalie 36 live - 6lbs 14oz Female epidural [facility] [place] Delivery Date: 04/30/08 Last Updated by: Manda Aguirre HIGH SCHOOL BIOLOGY TEACHER, HIGH SCHOOL BIOLOGY TEACHER-C Induced to preeclampsia, teen Delivery Date: 08/08/21 [...] KW- CRL (more content not included)... Normal [facility] Absolute lymphocyte countOrd ered By: Lyssa Aguila on 02-21-2025 Lymphocytes Auto (Unsp spec) [#/Vol] 1.56 10*3/uL 0.83-4.51 [facility] Absolute neutrophil countOrd ered By: Lyssa Aguila on 02-21-2025 Neutrophils (Bld) [#/Vol] 7.8 10*3/uL High 2.0-7.7 [facility] Automated lymphocyte count a s percentage of total leukocytesOrdered By: Lyssa Aguila on 02-21-2025 Lymphocytes/100 WBC Auto (Unsp spec) 15.5 % Low 19-41 [facility] Basophil percentageOrdered B y: Lyssa Aguila on 02-21-2025 Basophils/100 WBC (Bld) 0.3 % 0-1 [facility] CBC W/Diff, Automatedon 02-04 Absolute Lymph 1.56 X10 3/uL Normal 0.83-4.51 [facility] Comment on above: Performed By: #### L 501.0900, M100.2200, L7000.1800 #### [facility] [address] [place], [address] Absolute Neut 7.8 X10 3/uL High 2.0-7.7 [facility] Comment on above: Performed By: #### L 501.0900, M100.2200, L7000.1800 #### [facility] [address] [place], [address] Basophils/100 WBC (Bld) 0.3 % Normal 0-1 [facility] Comment on above: Performed By: #### L 501.0900, M100.2200, L7000.1800 #### [facility] [address] [place], [address] Eosinophils/100 WBC (Bld) 0.7 % Normal 0-5 [facility] Comment on above: Performed By: #### L 501.0900, M100.2200, L7000.1800 #### [facility] [address] [place], [address] Erythrocyte distribution width (RBC) [Ratio] 13.0 % Normal 11.6-14.6 [facility] Comment on above: Performed By: #### L 501.0900, M100.2200, L7000.1800 #### [facility] [address] [place], [address] Hematocrit (Bld) [Volume fraction] 39.3 % Normal 37-47 [facility] Comment on above: Performed By: #### L 501.0900, M100.2200, L7000.1800 #### [facility] [address] [place], [address] Hemoglobin (Bld) [Mass/Vol] 13.4 g/dL Normal 12.0-15.0 [facility] Comment on above: Performed By: #### L 501.0900, M100.2200, L7000.1800 #### [facility] [address] [place], [address] IG% 0.500 Normal 0.0-0.9 [facility] Comment on above: Result Comment: IG% - Immature Granulocytes (promyelocytes, myelocytes and metamyelocytes) > 1% indicates that a LEFT SHIFT is Present. Performed By: #### L 501.0900, M100.2200, L7000.1800 #### [facility] [address] [place], [address] Lymphocytes/100 WBC (Bld) 15.5 % Low 19-41 [facility] Comment on above: Performed By: #### L 501.0900, M100.2200, L7000.1800 #### [facility] [address] [place], [address] MCH (RBC) [Entitic mass] 30.1 pg Normal 27.0-32.0 [facility] Comment on above: Performed By: #### L 501.0900, M100.2200, L7000.1800 #### [facility] [address] [place], [address] MCHC (RBC) [Mass/Vol] 34.1 g/dL Normal 32-36 [facility] Comment on above: Performed By: #### L 501.0900, M100.2200, L7000.1800 #### [facility] [address] [place], [address] MCV (RBC) [Entitic vol] 88.3 fL Normal 81-99 [facility] Comment on above: Performed By: #### L 501.0900, M100.2200, L7000.1800 #### [facility] [address] [place], [address] Monocytes/100 WBC (Bld) 5.7 % Normal 0-10 [facility] Comment on above: Performed By: #### L 501.0900, M100.2200, L7000.1800 #### [facility] [address] [place], [address] Neutrophils/100 WBC (Bld) 77.3 % High 47-70 [facility] Comment on above: Performed By: #### L 501.0900, M100.2200, L7000.1800 #### [facility] [address] [place], [address] Nucleated RBC (Bld) [#/Vol] 0 10*3/uL Normal 0-5 [facility] Comment on above: Performed By: #### L 501.0900, M100.2200, L7000.1800 #### [facility] [address] [place], [address] Platelet mean volume (Bld) [Entitic vol] 10.1 fL Normal 6.2-12.0 [facility] Comment on above: Performed By: #### L 501.0900, M100.2200, L7000.1800 #### [facility] [address] [place], [address] Platelets (Bld) [#/Vol] 238 10*3/uL Normal 150-450 [facility] Comment on above: Performed By: #### L 501.0900, M100.2200, L7000.1800 #### [facility] [address] [place], [address] RBC (Bld) [#/Vol] 4.45 10*6/uL Normal 4.2-5.4 [facility] Comment on above: Performed By: #### L 501.0900, M100.2200, L7000.1800 #### [facility] [address] [place], [address] RDW SD 41.8 fl Normal 35.1-43.9 [facility] Comment on above: Performed By: #### L 501.0900, M100.2200, L7000.1800 #### [facility] [address] [place], [address] WBC (Bld) [#/Vol] 10.1 10*3/uL Normal 4.4-11.0 [facility] Comment on above: Performed By: #### L 501.0900, M100.2200, L7000.1800 #### [facility] [address] [place], [address] Eosinophil percentageOrdered By: Lyssa Aguila on 02-21-2025 Eosinophils/100 WBC (Bld) 0.7 % 0-5 [facility] Erythrocyte distribution wid th ratioOrdered By: Lyssa Aguila on 02-21-2025 Erythrocyte distribution width (RBC) [Ratio] 13.0 % 11.6-14.6 [facility] Erythrocyte distribution wid th standard deviationOrdered By: Lyssa Aguila on 02-21-2025 Erythrocyte distribution width (RBC) [Ratio] 41.8 fl 35.1-43.9 [facility] Free T3on 02-21-2025 Free T3 [Mass/Vol] 2.8 pg/mL Normal 2.18-3.98 [facility] Comment on above: Performed By: #### L 501.0900, M100.2200, L7000.1800 #### [facility] [address] [place], [address] Free T5Hjwlkxg By: Denis Galdamez on 02-21-2025 Free T3 [Mass/Vol] 2.8 pg/mL 2.18-3.98 [facility] Hematocrit Auto (Bld) [Volum e fraction]Ordered By: Lsysa Aguila on 02-21-2025 Hematocrit (Bld) [Volume fraction] 39.3 % 37-47 [facility] Hemoglobin measurementOrdere d By: Lyssa Aguila on 02-21-2025 Hemoglobin (Bld) [Mass/Vol] 13.4 g/dL 12.0-15.0 [facility] Immature granulocytes/100 WB C Auto (Bld)Ordered By: Lyssa Aguila on 02-21-2025 Immature granulocytes/100 WBC (Bld) 0.500 % 0.0-0.9 [facility] Comment on above: IG% - Immature Granu locytes (promyelocytes, myelocytes and metamyelocytes) > 1% indicates that a LEFT SHIFT is Present. Laboratory - Chemistry and C hemistry - challengeOrdered By: Lyssa Aguila on 02-21-2025 Glucose Ql (U) Negative [facility] - UrinalysisOrder ed By: Lyssa Aguila on 02-21-2025 Protein Ql (U) Negative [facility] MCV (mean corpuscular volume ) determinationOrdered By: Lyssa Aguila on 02-21-2025 MCV (RBC) [Entitic vol] 88.3 fL 81-99 [facility] Mean corpuscular hemoglobin (MCH) determinationOrdered By: Lyssa Aguila on 02-21-2025 MCH (RBC) [Entitic mass] 30.1 pg 27.0-32.0 [facility] Mean corpuscular hemoglobin concentration (MCHC) determinationOrdered By: Lyssa Aguila on 02-21-2025 MCHC (RBC) [Mass/Vol] 34.1 g/dL 32-36 [facility] Mean platelet volume determi nationOrdered By: Lyssa Aguila on 02-21-2025 Platelet mean volume (Bld) [Entitic vol] 10.1 fL 6.2-12.0 [facility] Monocyte percentageOrdered B y: Lyssa Aguila on 02-21-2025 Monocytes/100 WBC (Bld) 5.7 % 0-10 [facility] Neutrophil percentageOrdered By: Lyssa Aguila on 02-21-2025 Neutrophils/100 WBC (Bld) 77.3 % High 47-70 [facility] Nucleated red blood cell per centageOrdered By: Lyssa Aguila on 02-21-2025 Nucleated RBC/100 WBC (Bld) [Ratio] 0 % 0-5 [facility] [employer] Office Visit Reporton 02-21-2025 [employer] Office Visit Report [facility]'s [address], [address] [place] [address] OFFICE VISIT Date of Service: 02/21/25 MR#: [id number] Acct: [id number] Name: DEMARCUS ABAD Rep #: [id number] : 1990 Provider: SULLY Boudreaux ams Age/Sex: 35/F Location: [facility] [place], [place] Status: Signed Intake Vital Signs 12/27/24 09:51 01/25/25 13:59 02/21/25 11:01 Height 5 ft 2 in 5 ft 2 in 5 ft 2 in Weight: 167 lb 2 oz 170 lb 8 oz BMI 30.5 31.1 BP 111/73 103/68 Intake Visit Reasons: 20 wk ob Chief Complaint: 20wk OB 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 Required: No Is patient in pain?: No Allergies Penicillins Allergy (Unknown, Verified 02/21/25 10:59) Unknown Medications ???Medication ???Instructions ???Recorded ???Confirmed ???Type ferrous sulfate 325 mg (65 mg 325 mg PO DAILY 09/05/23 02/21/25 History iron) tablet (Feosol) multivit-min no.71-iron fum 28 cap PO 11/12/24 02/21/25 History mg-folate no.1 1 mg-dha 300 mg capsule (PNV-[place]) methimazole 5 mg tablet 2.5 mg (1/2 x 5 mg) PO .every 01/0402/21/25 Rx other day #15 tabs Last Menstrual Period: 09/27/24 : No PFSH PFSH Medical History Hot thyroid nodule Hx of varicose veins of lower extremity Depression Nodular goiter HPV (human papilloma virus) infection Thyroid disorder Pre-eclampsia Abnormal glucose Anemia Surgical History History of bunionectomy of right great toe Ophelia teeth extracted History of colposcopy Family History Mother Hypertension Father Diabetes Aunt Thyroid disorder Maternal- unknown type Social History adopted: No household members: spouse and children housing: house number of children: 2 current occupational status: unemployed current occupation: [employer] pets and animals: Yes (no litter box) [...] physical activity do you participate in: none [place]/hoahaoism: Restorationism seatbelt use: always do you feel safe at home: Yes 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 Date Name GA/Weeks Outcome Route Bth Weight Gen Labor Lgth Anesthesia Del Locatn Provider FOB Unknown 08/2024 6 spontaneous 04/30/08 Shlomo 36 live - 6# Male epidural [facility] Taye 08/08/21 Emalie 36 live - 6lbs 14oz Female epidural [facility] [place] Delivery Date: 04/30/08 Last Updated by: Manda Aguirre HIGH SCHOOL BIOLOGY TEACHER, HIGH SCHOOL BIOLOGY TEACHER-C Induced to preeclampsia, teen Delivery Date: 08/08/21 [...] -???-???-???-???-??? - (more content not included)... Normal [facility] Platelet countOrdered By: Miko Aguila on 02-21-2025 Platelets (Bld) [#/Vol] 238 10*3/uL 150-450 [facility] RBC Auto (Bld) [#/Vol]Ordere d By: Lyssa Aguila on 02-21-2025 RBC (Bld) [#/Vol] 4.45 10*6/uL 4.2-5.4 [facility] T4 Free Directon 02-21-2025 T4 FREE DIRECT 0.80 ng/dL Normal 0.76-1.46 [facility] Comment on above: Performed By: #### L 501.0900, M100.2200, L7000.1800 #### [facility] [address] [place], [place], [address] T4 freeOrdered By: Denis Galdamez on 02-21-2025 Free T4 [Mass/Vol] 0.80 ng/dL 0.76-1.46 [facility] TSH DL <= 0.005 mIU/L QnOrde red By: Denis Galdamez on 02-21-2025 TSH Qn 0.193 uIU/mL Low 0.300-4.200 [facility] Thyroid Stim Hormone (TSH)on 02-21-2025 TSH 0.193 uIU/mL Low 0.300-4.200 [facility] Comment on above: Performed By: #### L 501.0900, M100.2200, L7000.1800 #### [facility] [address] [place], [address] White blood cell (WBC) count Ordered By: Lyssa Aguila on 02-21-2025 WBC (Bld) [#/Vol] 10.1 10*3/uL 4.4-11.0 [facility] - Chemistry and C hemistry - challengeOrdered By: Gaby Trimble on 01-25-2025 Glucose Ql (U) Negative [facility] - UrinalysisOrder ed By: Gaby Trimble on 01-25-2025 Protein Ql (U) Negative [facility] [employer] Office Visit Reporton 01-25-2025 [employer] Office Visit Report [facility] [address] [place] [address], [address] [place] [address] OFFICE VISIT Date of Service: 01/25/25 MR#: [id number] Acct: [id number] Name: DEMARCUS ABAD Rep #: [id number] : 1990 Provider: Dr. Gaby rondon MD Age/Sex: 34/F Location: [facility] [place], [place] Status: Signed Intake Vital Signs 11/24/24 12:59 01/10/25 13:57 01/25/25 13:59 Height 5 ft 2 in 5 ft 2 in 5 ft 2 in Weight: 167 lb 2 oz BMI 30.5 BP 111/73 Intake Visit Reasons: 16 wk ob 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 Required: No Is patient in pain?: Yes (severe round ligament pain this ) Allergies Penicillins Allergy (Unknown, Verified 01/25/25 14:00) Unknown Medications ???Medication ???Instructions ???Recorded ???Confirmed ???Type ferrous sulfate 325 mg (65 mg 325 mg PO DAILY 09/05/23 01/25/25 History iron) tablet (Feosol) multivit-min no.71-iron fum 28 cap PO 11/12/24 01/25/25 History mg-folate no.1 1 mg-dha 300 mg capsule (PNV-[place]) methimazole 5 mg tablet 2.5 mg (1/2 x 5 mg) PO .every 01/0401/25/25 Rx other day #15 tabs Last Menstrual Period: 09/27/24 Zika: Zika virus screening: Negative : No PFSH PFSH Medical History (Updated 01/25/25 @ 14:[address] Gaby Trimble MD) Hot thyroid nodule Hx of varicose veins of lower extremity Depression Nodular goiter HPV (human papilloma virus) infection Thyroid disorder Pre-eclampsia Abnormal glucose Anemia Surgical History (Updated 01/25/25 @ 14:[address] Gaby Trimble MD) History of bunionectomy of right great toe Ophelia teeth extracted History of colposcopy Family History Mother Hypertension Father Diabetes Aunt Thyroid disorder Maternal- unknown type Social History adopted: No household members: spouse and children housing: house number of children: 2 current occupational status: unemployed current occupation: [employer] pets and animals: Yes (no litter box) [...] physical activity do you participate in: none [place]/hoahaoism: Restorationism seatbelt use: always do you feel safe [...] Shlomo 36 live - 6# Male epidural [facility] Taye 08/08/21 Emalie 36 live - 6lbs 14oz Female epidural [facility] [place] Delivery Date: 04/30/08 Last Updated by: Manda Aguirre HIGH SCHOOL BIOLOGY TEACHER, HIGH SCHOOL BIOLOGY TEACHER-C Induced to preeclampsia, teen Delivery Date: 08/08/21 [...] -???-???- KW (more content not included)... Normal [facility] Free T3on 01-17-2025 Free T3 [Mass/Vol] 3.3 pg/mL Normal 2.18-3.98 [facility] Comment on above: Performed By: #### L 501.9589, L501.09813, L506.0400 #### [facility] [address] [place], [address] Free I6Oyrbaxm By: Denis Galdamez on 01-17-2025 Free T3 [Mass/Vol] 3.3 pg/mL 2.18-3.98 [facility] T4 Free Directon 01-17-2025 T4 FREE DIRECT 1.00 ng/dL Normal 0.76-1.46 [facility] Comment on above: Performed By: #### L 501.9520, L501.71069, L506.0400 #### [facility] [address] [place], [address] T4 freeOrdered By: Denis Galdamez on 01-17-2025 Free T4 [Mass/Vol] 1.00 ng/dL 0.76-1.46 [facility] TSH DL <= 0.005 mIU/L QnOrde red By: Denis Galdamez on 01-17-2025 TSH Qn 0.022 uIU/mL Low 0.300-4.200 [facility] Thyroid Stim Hormone (TSH)on 01-17-2025 TSH 0.022 uIU/mL Low 0.300-4.200 [facility] Comment on above: Performed By: #### L 501.9520, L501.43279, L506.0400 #### [facility] [address] [place], [address] [employer] Office Visit Reporton 01-10-2025 [employer] Office Visit Report [facility]'s [address], [address] [place] [address] OFFICE VISIT Date of Service: 01/10/25 MR#: [id number] Acct: [id number] Name: DEMARCUS ABAD Rep #: [id number] : 1990 Provider: LUCILA arriola Age/Sex: 34/F Location: [facility] [place], [place] Status: Signed Intake Vital Signs 12/30/24 13:27 [...] check Chief Complaint: 15 Week heart check 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 Required: No Is patient in pain?: No Allergies Penicillins Allergy (Unknown, Verified 01/10/25 13:53) Unknown Medications ???Medication ???Instructions ???Recorded ???Confirmed ???Type ferrous sulfate 325 mg (65 mg 325 mg PO DAILY 09/05/23 01/10/25 History iron) tablet (Feosol) multivit-min no.71-iron fum 28 cap PO 11/12/24 01/10/25 History mg-folate no.1 1 mg-dha 300 mg capsule (PNV-[place]) Last Menstrual Period: 09/27/24 Zika: Zika virus screening: Negative : No PFSH PFSH Medical History Hot thyroid nodule Hx of varicose veins of lower extremity Depression Nodular goiter HPV (human papilloma virus) infection Thyroid disorder Pre-eclampsia Abnormal glucose Anemia Surgical History History of bunionectomy of right great toe Ophelia teeth extracted History of colposcopy Family History Mother Hypertension Father Diabetes Aunt Thyroid disorder Maternal- unknown type Social History adopted: No household members: spouse and children housing: house number of children: 2 current occupational status: unemployed current occupation: [employer] pets and animals: Yes (no litter box) [...] physical activity do you participate in: none [place]/hoahaoism: Restorationism seatbelt use: always do you feel safe [...] Shlomo 36 live - 6# Male epidural [facility] Taye 08/08/21 Emalie 36 live - 6lbs 14oz Female epidural [facility] [place] Delivery Date: 04/30/08 Last Updated by: Manda Aguirre HIGH SCHOOL BIOLOGY TEACHER, HIGH SCHOOL BIOLOGY TEACHER-C Induced to preeclampsia, teen Delivery Date: 08/08/21 [...] -???-???-???-???-??? -???-???-?? (more content not included)... Normal [facility] Endocrinology Visit Reporton 12-30-2024 Endocrinology Visit Report [facility] [address] [place] [address] OFFICE VISIT Date of Service: 12/30/24 MR#: [id number] Acct: [id number] Name: DEMARCUS ABAD Rep #: [id number] : 1990 Provider: Ashly Yusuf Age/Sex: 34/F Location: [facility] Status: Signed Intake Vital Signs 12/27/24 09:51 [...] mg-folate no.1 1 mg-dha 300 mg capsule (PNV-[place]) Patient : Yes (13 weeks) [facility] Medical History (Updated 01/03/25 @ 10:[address] Denis Galdamez MD) Hot thyroid nodule Hx of varicose veins of lower extremity Depression Nodular goiter HPV (human papilloma virus) infection Thyroid disorder Pre-eclampsia Abnormal glucose Anemia Surgical History History of bunionectomy of right great toe Ophelia teeth extracted History of colposcopy Family History Mother Hypertension Father Diabetes Aunt Thyroid disorder Maternal- unknown type Social History adopted: No household members: spouse and children housing: house number of children: 2 current occupational status: unemployed current occupation: [employer] pets and animals: Yes (no litter box) [...] physical activity do you participate in: none [place]/hoahaoism: Restorationism seatbelt use: always do you feel safe at home: Yes additional social history: [place]- [employer] [facility] Female Reproductive History Menstrual Ab spontaneous: 1 [...] normal Periorbital: (more content not included)... Normal [facility] Urine Cultureon 12-28-2024 URC Culture exhibits no growth. Normal [facility] Comment on above: Performed By: #### L 501.0900, M100.2200, L7000.1800 #### [facility] [address] [place], [place], [id number] Absolute lymphocyte countOrd ered By: Lyssa Aguila on 12-27-2024 Lymphocytes Auto (Unsp spec) [#/Vol] 1.50 10*3/uL 0.83-4.51 [facility] Absolute neutrophil countOrd ered By: Lyssa Aguila on 12-27-2024 Neutrophils (Bld) [#/Vol] 5.7 10*3/uL 2.0-7.7 [facility] Anion gap in Serum or Plasma Ordered By: Lyssa Aguila on 12-27-2024 Anion gap [Moles/Vol] 12 mmol/L 5-15 [facility] Automated lymphocyte count a s percentage of total leukocytesOrdered By: Lyssa Aguila on 12-27-2024 Lymphocytes/100 WBC Auto (Unsp spec) 19.2 % 19-41 [facility] BUN/creatinine ratioOrdered By: Lyssa Aguila on 06-23-2025 Urea nitrogen/Creatinine [Mass ratio] 8.3 mg/mg Low 10-20 [facility] Comment on above: Previous reported re sult: 8.0 RATIOEdited by: AUTOINS on 12/27/24:1342 AMENDED REPORT 12/27/24 1342 BUN/CRE previously reported as: 8.0 L RATIO Basophil percentageOrdered B y: Lyssa Aguila on 12-27-2024 Basophils/100 WBC (Bld) 0.4 % 0-1 [facility] Bilirubin, totalOrdered By: Lyssa Aguila on 12-27-2024 Bilirubin [Mass/Vol] 0.27 mg/dL 0.00-1.30 [facility] Comment on above: Previous reported re sult: 0.26 mg/dLEdited by: AUTOINDevi on 12/27/24:1342 AMENDED REPORT 12/27/241341 T BILI previously reported as: 0.26 mg/dL CBC W/Diff, Automatedon 12-06 Absolute Lymph 1.50 X10 3/uL Normal 0.83-4.51 [facility] Comment on above: Performed By: #### L 500.4050, L100.0100, L501.9985, L3890.6102, L3890.6006, L509.4006, L3890.6301, L501.9520, BTS, L509.8002, L900.0098 #### [facility] [address] [facility] [place], [address] Absolute Neut 5.7 X10 3/uL Normal 2.0-7.7 [facility] Comment on above: Performed By: #### L 500.4050, L100.0100, L501.9985, L3890.6102, L3890.6006, L509.4006, L3890.6301, L501.9520, BTS, L509.8002, L900.0098 #### [facility] [address] [place], [address] Basophils/100 WBC (Bld) 0.4 % Normal 0-1 [facility] Comment on above: Performed By: #### L 500.4050, L100.0100, L501.9985, L3890.6102, L3890.6006, L509.4006, L3890.6301, L501.9520, BTS, L509.8002, L900.0098 #### [facility] [address] [place], [address] Eosinophils/100 WBC (Bld) 0.9 % Normal 0-5 [facility] Comment on above: Performed By: #### L 500.4050, L100.0100, L501.9985, L3890.6102, L3890.6006, L509.4006, L3890.6301, L501.9520, BTS, L509.8002, L900.0098 #### [facility] [address] [place], [address] Erythrocyte distribution width (RBC) [Ratio] 12.5 % Normal 11.6-14.6 [facility] Comment on above: Performed By: #### L 500.4050, L100.0100, L501.9985, L3890.6102, L3890.6006, L509.4006, L3890.6301, L501.9520, BTS, L509.8002, L900.0098 #### [facility] [address] [place], [address] Hematocrit (Bld) [Volume fraction] 41.4 % Normal 37-47 [facility] Comment on above: Performed By: #### L 500.4050, L100.0100, L501.9985, L3890.6102, L3890.6006, L509.4006, L3890.6301, L501.9520, BTS, L509.8002, L900.0098 #### [facility] [address] [place], [address] Hemoglobin (Bld) [Mass/Vol] 13.9 g/dL Normal 12.0-15.0 [facility] Comment on above: Performed By: #### L 500.4050, L100.0100, L501.9985, L3890.6102, L3890.6006, L509.4006, L3890.6301, L501.9520, BTS, L509.8002, L900.0098 #### [facility] [address] [place], [address] IG% 0.500 Normal 0.0-0.9 [facility] Comment on above: Result Comment: IG% - Immature Granulocytes (promyelocytes, myelocytes and metamyelocytes) > 1% indicates that a LEFT SHIFT is Present. Performed By: #### L 500.4050, L100.0100, L501.9985, L3890.6102, L3890.6006, L509.4006, L3890.6301, L501.9520, BTS, L509.8002, L900.0098 #### [facility] [address] [place], [address] Lymphocytes/100 WBC (Bld) 19.2 % Normal 19-41 [facility] Comment on above: Performed By: #### L 500.4050, L100.0100, L501.9985, L3890.6102, L3890.6006, L509.4006, L3890.6301, L501.9520, BTS, L509.8002, L900.0098 #### [facility] [address] [place], [address] MCH (RBC) [Entitic mass] 29.3 pg Normal 27.0-32.0 [facility] Comment on above: Performed By: #### L 500.4050, L100.0100, L501.9985, L3890.6102, L3890.6006, L509.4006, L3890.6301, L501.9520, BTS, L509.8002, L900.0098 #### [facility] [address] [place], [address] MCHC (RBC) [Mass/Vol] 33.6 g/dL Normal 32-36 [facility] Comment on above: Performed By: #### L 500.4050, L100.0100, L501.9985, L3890.6102, L3890.6006, L509.4006, L3890.6301, L501.9520, BTS, L509.8002, L900.0098 #### [facility] [address] [place], [address] MCV (RBC) [Entitic vol] 87.3 fL Normal 81-99 [facility] Comment on above: Performed By: #### L 500.4050, L100.0100, L501.9985, L3890.6102, L3890.6006, L509.4006, L3890.6301, L501.9520, BTS, L509.8002, L900.0098 #### [facility] [address] [place], [address] Monocytes/100 WBC (Bld) 6.1 % Normal 0-10 [facility] Comment on above: Performed By: #### L 500.4050, L100.0100, L501.9985, L3890.6102, L3890.6006, L509.4006, L3890.6301, L501.9520, BTS, L509.8002, L900.0098 #### [facility] [address] [place], [address] Neutrophils/100 WBC (Bld) 72.9 % High 47-70 [facility] Comment on above: Performed By: #### L 500.4050, L100.0100, L501.9985, L3890.6102, L3890.6006, L509.4006, L3890.6301, L501.9520, BTS, L509.8002, L900.0098 #### [facility] [address] [place], [address] Nucleated RBC (Bld) [#/Vol] 0 10*3/uL Normal 0-5 [facility] Comment on above: Performed By: #### L 500.4050, L100.0100, L501.9985, L3890.6102, L3890.6006, L509.4006, L3890.6301, L501.9520, BTS, L509.8002, L900.0098 #### [facility] [address] [facility] [place], [address] Platelet mean volume (Bld) [Entitic vol] 10.2 fL Normal 6.2-12.0 [facility] Comment on above: Performed By: #### L 500.4050, L100.0100, L501.9985, L3890.6102, L3890.6006, L509.4006, L3890.6301, L501.9520, BTS, L509.8002, L900.0098 #### [facility] [address] [facility] [place], [address] Platelets (Bld) [#/Vol] 236 10*3/uL Normal 150-450 [facility] Comment on above: Performed By: #### L 500.4050, L100.0100, L501.9985, L3890.6102, L3890.6006, L509.4006, L3890.6301, L501.9520, BTS, L509.8002, L900.0098 #### [facility] [address] [place], [address] RBC (Bld) [#/Vol] 4.74 10*6/uL Normal 4.2-5.4 [facility] Comment on above: Performed By: #### L 500.4050, L100.0100, L501.9985, L3890.6102, L3890.6006, L509.4006, L3890.6301, L501.9520, BTS, L509.8002, L900.0098 #### [facility] [address] [place], [address] RDW SD 40.3 fl Normal 35.1-43.9 [facility] Comment on above: Performed By: #### L 500.4050, L100.0100, L501.9985, L3890.6102, L3890.6006, L509.4006, L3890.6301, L501.9520, BTS, L509.8002, L900.0098 #### [facility] [address] [place], [address] WBC (Bld) [#/Vol] 7.8 10*3/uL Normal 4.4-11.0 [facility] Comment on above: Performed By: #### L 500.4050, L100.0100, L501.9985, L3890.6102, L3890.6006, L509.4006, L3890.6301, L501.9520, BTS, L509.8002, L900.0098 #### [facility] [address] [place], [address] Carbon dioxide, total [Moles /volume] in Central venous bloodOrdered By: Lyssa Aguila on 12-27-2024 CO2 [Moles/Vol] 20.8 mmol/L Low 21.0-32.0 [facility] Comment on above: Previous reported re sult: 22.0 mmol/LEdited by: ALEXANDER on 12/27/24:1342 AMENDED REPORT 12/27/24 1342 CO2 previously reported as: 22.0 mmol/L Chloride assayOrdered By: Miko Aguila on 12-27-2024 Chloride [Moles/Vol] 102 mmol/L 98-108 [facility] Comment on above: Previous reported re sult: 101 mmol/LEdited by: AUTOINS on 12/27/24:1342 AMENDED REPORT 12/27/241341 CL previously reported as: 101 mmol/L Comprehensive Metabolic Prof ilon 12-27-2024 Albumin [Mass/Vol] 4.1 g/dL Normal 3.5-5.0 [facility] Comment on above: Result Comment: AMENDED REPORT 12/27/241341 ALB previously reported as: 4.1 g/dL Performed By: #### L 501.0900, M100.2200, L7000.1800 #### [facility] [address] [place], [address] Albumin/Globulin [Mass ratio] 1.5 {ratio} Normal 0.9-2.4 [facility] Comment on above: Result Comment: AMENDED REPORT 12/27/241341 A/G previously reported as: 1.5 RATIO Performed By: #### L 501.0900, M100.2200, L7000.1800 #### [facility] [address] [place], [address] ALK PHOS 61 U/L Normal 35-104 [facility] Comment on above: Result Comment: AMENDED REPORT 12/27/241341 ALK P previously reported as: 61 U/L Performed By: #### L 501.0900, M100.2200, L7000.1800 #### [facility] [address] [place], [address] ALT [Catalytic activity/Vol] 15 U/L Normal <=34 [facility] Comment on above: Result Comment: AMENDED REPORT 12/27/241341 ALT previously reported as: 15 U/L Performed By: #### L 501.0900, M100.2200, L7000.1800 #### [facility] [address] [place], [address] AST [Catalytic activity/Vol] 18 U/L Normal <=31 [facility] Comment on above: Performed By: #### L 501.0900, M100.2200, L7000.1800 #### [facility] [address] [place], [address] Bilirubin [Mass/Vol] 0.26 mg/dL Normal 0.00-1.30 [facility] Comment on above: Result Comment: AMENDED REPORT 12/27/241341 T BILI previously reported as: 0.26 mg/dL Performed By: #### L 501.0900, M100.2200, L7000.1800 #### [facility] [address] [place], [address] BUN/CRE 8.0 RATIO Low 10-20 [facility] Comment on above: Result Comment: AMENDED REPORT 12/27/241341 BUN/CRE previously reported as: 8.0 L RATIO Performed By: #### L 501.0900, M100.2200, L7000.1800 #### [facility] [address] [place], [address] Calcium [Mass/Vol] 9.4 mg/dL Normal 7.6-11.0 [facility] Comment on above: Result Comment: AMENDED REPORT 12/27/241341 CA previously reported as: 9.4 mg/dL Performed By: #### L 501.0900, M100.2200, L7000.1800 #### [facility] [address] [place], [address] Chloride [Moles/Vol] 101 mmol/L Normal 98-108 [facility] Comment on above: Result Comment: AMENDED REPORT 12/27/241341 CL previously reported as: 101 mmol/L Performed By: #### L 501.0900, M100.2200, L7000.1800 #### [facility] [address] [place], [address] CO2 [Moles/Vol] 22.0 mmol/L Normal 21.0-32.0 [facility] Comment on above: Result Comment: AMENDED REPORT 12/27/241341 CO2 previously reported as: 22.0 mmol/L Performed By: #### L 501.0900, M100.2200, L7000.1800 #### [facility] [address] [place], [address] Creatinine [Mass/Vol] 0.65 mg/dL Low 0.70-1.20 [facility] Comment on above: Result Comment: AMENDED REPORT 12/27/241341 CREAT,SERUM previously reported as: 0.65 L mg/dL Performed By: #### L 501.0900, M100.2200, L7000.1800 #### [facility] [address] [place], [address] GAP 12 Normal 5-15 [facility] Comment on above: Performed By: #### L 501.0900, M100.2200, L7000.1800 #### [facility] [address] [place], [address] GFR/1.73 sq M.predicted among non-blacks MDRD (S/P/Bld) [Vol rate/Area] 118 mL/min/{1.73_m2} Normal >60 [facility] Comment on above: Result Comment: mL/m in/1.73m2 CKD-EPI Creatinine Equation (2020) Performed By: #### L 501.0900, M100.2200, L7000.1800 #### [facility] [address] [place], [address] Globulin (S) [Mass/Vol] 2.6 g/dL Normal 2.2-4.2 [facility] Comment on above: Result Comment: AMENDED REPORT 12/27/241341 GLOB previously reported as: 2.6 g/dL Performed By: #### L 501.0900, M100.2200, L7000.1800 #### [facility] [address] [place], [address] Glucose [Mass/Vol] 74 mg/dL Normal 70-99 [facility] Comment on above: Result Comment: AMENDED REPORT 12/27/24 1342 GLU previously reported as: 74 mg/dL Performed By: #### L 501.0900, M100.2200, L7000.1800 #### [facility] [address] [place], [address] Potassium [Moles/Vol] 4.0 mmol/L Normal 3.3-5.1 [facility] Comment on above: Result Comment: AMENDED REPORT 12/27/241341 K previously reported as: 4.0 mmol/L Performed By: #### L 501.0900, M100.2200, L7000.1800 #### [facility] [address] [place], [address] Sodium [Moles/Vol] 135 mmol/L Normal 133-145 [facility] Comment on above: Performed By: #### L 501.0900, M100.2200, L7000.1800 #### [facility] [address] [place], [address] T PROT 6.7 g/dL Normal 5.9-8.4 [facility] Comment on above: Result Comment: AMENDED REPORT 12/27/24 1342 T PROT previously reported as: 6.7 g/dL Performed By: #### L 501.0900, M100.2200, L7000.1800 #### [facility] [address] [place], [address] Urea nitrogen [Mass/Vol] 5 mg/dL Normal 4-19 [facility] Comment on above: Performed By: #### L 501.0900, M100.2200, L7000.1800 #### [facility] [address] [place], [place], [address] Eosinophil percentageOrdered By: Lyssa Aguila on 12-27-2024 Eosinophils/100 WBC (Bld) 0.9 % 0-5 [facility] Erythrocyte distribution wid th ratioOrdered By: Lyssa Aguila on 12-27-2024 Erythrocyte distribution width (RBC) [Ratio] 12.5 % 11.6-14.6 [facility] Erythrocyte distribution wid th standard deviationOrdered By: Lyssa Aguila on 12-27-2024 Erythrocyte distribution width (RBC) [Ratio] 40.3 fl 35.1-43.9 [facility] Glomerular filtration rate ( GFR) estimation/1.73 sq m using serum, plasma, or whole bOrdered By: Lyssa Aguila on 12-27-2024 GFR/1.73 sq M.predicted among non-blacks MDRD (S/P/Bld) [Vol rate/Area] 118 mL/min/{1.73_m2} >60 [facility] Comment on above: mL/min/1.73m2 CKD-EP I Creatinine Equation (2020) HIVon 12-27-2024 HIV Non-Reactive Normal Nonreactive [facility] Comment on above: Result Comment: Non- Reactive Reactive Repeatedly reactive samples must be confirmed according to CDC recommended confirmatory algorithms. The subresults for either HIVAG or AHIV can be used as an aid in the selection of the confirmation algorithm for reactive samples. Send out specimens with Reactive results to [facility] for confirmation. Order the HIV antibody detection and differentiation: #[id number] Performed By: #### L 501.0900, M100.2200, L7000.1800 #### [facility] [address] [place], [address] Hematocrit Auto (Bld) [Volum e fraction]Ordered By: Lyssa Aguila on 12-27-2024 Hematocrit (Bld) [Volume fraction] 41.4 % 37-47 [facility] Hemoglobin A1con 12-27-2024 HbA1c (Bld) [Mass fraction] 5.1 % Normal <=5.6 [facility] Comment on above: Result Comment: Norm al < 5.7 % Prediabetic 5.7 - 6.4 % Diabetic >or= 6.5 % Please note range changes. Performed By: #### L 501.0900, M100.2200, L7000.1800 #### [facility] [address] [place], [address] Hemoglobin A1c percentageOrd ered By: Lyssa Aguila on 12-27-2024 HbA1c (Bld) [Mass fraction] 5.1 % <5.7 [facility] Comment on above: Normal < 5.7 % Predi abetic 5.7 - 6.4 % Diabetic >or= 6.5 % Please note range changes. Hemoglobin measurementOrdere d By: Lyssa Aguila on 12-27-2024 Hemoglobin (Bld) [Mass/Vol] 13.9 g/dL 12.0-15.0 [facility] Hepatitis C Antibodyon 12-27 Hepatitis C Ab Non-Reactive Normal Nonreactive [facility] Comment on above: Result Comment: Reac tive: Presumptive evidence of antibodies to HCV. Follow CDC recommendations for supplemental testing. Non-Reactive: Antibodies to HCV were not detected; does not exclude the possibility of exposure to HCV Reactive Results are presumptive evidence of antibodies to HCV. Follow CDC recommendations for supplemental testing. Order confirmation testing: HCV Quant by PCR testing - HCVPCR #[id number] Non Reactive: < 0.8 Equivocal: >/= 0.8 to < 1.0 Reactive: >/= 1.0 The CDC requires that a reactive/equivocal HCV antibody result be sent out for confirmation. HCV Quant by PCR testing. Performed By: #### L 501.0900, M100.2200, L7000.1800 #### [facility] [address] [place], [address] Immature granulocytes/100 WB C Auto (Bld)Ordered By: Lyssa Aguila on 12-27-2024 Immature granulocytes/100 WBC (Bld) 0.500 % 0.0-0.9 [facility] Comment on above: IG% - Immature Granu locytes (promyelocytes, myelocytes and metamyelocytes) > 1% indicates that a LEFT SHIFT is Present. L3890.6102on 12-27-2024 HEP B Surf Ag Non-Reactive Normal Nonreactive [facility] Comment on above: Result Comment: Reac tive: Presumptive evidence of HBV. Repeatedly reactive samples must be confirmed using a neutralization test ([employer] HBsAg Confirmatory Test) Non-Reactive: HBsAg not detected; does not exclude the possibility of exposure to HBV Performed By: #### L 501.0900, M100.2200, L7000.1800 #### [facility] [address] [place], [address] L509.4006on 12-27-2024 Rubella IgG REAC Normal Nonreactive [facility] Comment on above: Result Comment: Anti body Result: Interpretation Non-Reactive: Non-Immune Reactive: Immune The following results were obtained with the [employer] Rubella IgG assay. Results from assays of other manufacturers cannot be used interchangeably. Performed By: #### L 501.0900, M100.2200, L7000.1800 #### [facility] [address] [place], [place], [address] Laboratory - Chemistry and C hemistry - challengeOrdered By: Lyssa Aguila on 12-27-2024 AST [Catalytic activity/Vol] 18 U/L <32 [facility] - Chemistry and C hemistry - challengeOrdered By: Manda Aguirre on 12-27-2024 Bilirubin Ql (U) Negative [facility] Glucose Ql (U) Negative [facility] Ketones Ql (U) Negative [facility] pH (U) 6.5 [pH] [facility] Specific gravity (U) [Rel density] 1.010 [facility] Urobilinogen (U) [Mass/Vol] Negative [facility] Laboratory - Hematology and Cell countsOrdered By: Manda Aguirre on 12-27-2024 Hemoglobin Ql (U) Negative [facility] Laboratory - Microbiology an d Antimicrobial susceptibilityOrdered By: Lyssa Aguila on 12-27-2024 HBV surface Ag Ql (S) Non-Reactive Nonreactive [facility] Comment on above: Reactive: Presumptiv e evidence of HBV. Repeatedly reactive samples must be confirmed using a neutralization test ([employer] HBsAg Confirmatory Test)Non-Reactive: HBsAg not detected; does not exclude the possibility of exposure to HBV Laboratory - Specimen inform ationOrdered By: Manda Aguirre on 12-27-2024 Clarity (U) Clear [facility] Color (U) YELLOW [facility] Laboratory - UrinalysisOrder ed By: Manda Aguirre on 12-27-2024 Nitrite Ql (U) Negative [facility] Protein Ql (U) Negative [facility] MCV (mean corpuscular volume ) determinationOrdered By: Lyssa Aguila on 12-27-2024 MCV (RBC) [Entitic vol] 87.3 fL 81-99 [facility] Mean corpuscular hemoglobin (MCH) determinationOrdered By: Lyssa Aguila on 12-27-2024 MCH (RBC) [Entitic mass] 29.3 pg 27.0-32.0 [facility] Mean corpuscular hemoglobin concentration (MCHC) determinationOrdered By: Lyssa Aguila on 12-27-2024 MCHC (RBC) [Mass/Vol] 33.6 g/dL 32-36 [facility] Mean platelet volume determi nationOrdered By: Lyssa Aguila on 12-27-2024 Platelet mean volume (Bld) [Entitic vol] 10.2 fL 6.2-12.0 [facility] Monocyte percentageOrdered B y: Lyssa Aguila on 12-27-2024 Monocytes/100 WBC (Bld) 6.1 % 0-10 [facility] NATERAon 12-27-2024 NATURA SEE SCANNED REPORT Normal [facility] Comment on above: Performed By: #### L 500.4050, L100.0100, L501.9985, L3890.6102, L3890.6006, L509.4006, L3890.6301, L501.9520, BTS, L509.8002, L900.0098 #### [facility] [address] [place], [place], [id number] Neutrophil percentageOrdered By: Lyssa Aguila on 12-27-2024 Neutrophils/100 WBC (Bld) 72.9 % High 47-70 [facility] No Panel InformationOrdered By: Lyssa Aguila on 12-27-2024 HIV (1&2) Antibody Non-Reactive Nonreactive [facility] Comment on above: Non-ReactiveReactive Repeatedly reactive samples must be confirmed according to CDC recommended confirmatory algorithms. The subresults for either HIVAG or AHIV can be used as an aid in the selection of the confirmation algorithm for reactive samples.Send out specimens with Reactive results to [facility] for confirmation.Order the HIV antibody detection and differentiation: #[id number] No Panel InformationOrdered By: Manda Aguirre on 12-27-2024 Urine Leukocytes Positive [facility] Urine Non-Hemolyzed Blood Negative [facility] Nucleated red blood cell per centageOrdered By: Lyssa Aguila on 12-27-2024 Nucleated RBC/100 WBC (Bld) [Ratio] 0 % 0-5 [facility] [employer] Office Visit Reporton 12-27-2024 [employer] Office Visit Report [facility] [address], [address] [place] [address] OFFICE VISIT Date of Service: 12/27/24 MR#: [id number] Acct: [id number] Name: DEMARCUS ABAD Rep #: [id number] : 1990 Provider: LUCILA arriola Age/Sex: 34/F Location: [facility] [place], [place] Status: Signed Intake Vital Signs 08/23/24 15:14 11/24/24 12:59 12/27/24 09:51 12/27/24 09:51 Height 5 ft 2 in 5 ft 2 in 5 ft 2 in 5 ft 2 in Weight: 168 lb 8 oz 166 lb BMI 30.8 30.3 BP 108/74 115/73 Intake Visit Reasons: 12 wks OB 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 Required: No Is patient in pain?: No Allergies Penicillins Allergy (Unknown, Verified 12/27/24 09:51) Unknown Medications ???Medication ???Instructions ???Recorded ???Confirmed ???Type ferrous sulfate 325 mg (65 mg 325 mg PO DAILY 09/05/23 12/27/24 History iron) tablet (Feosol) multivit-min no.71-iron fum 28 cap PO 11/12/24 12/27/24 History mg-folate no.1 1 mg-dha 300 mg capsule (PNV-[place]) nitrofurantoin 100 mg PO BID 7 days #14 caps 12/0612/27/24 Rx monohydrate/macrocry stals 100 mg capsule (Macrobid) Last Menstrual Period: 09/27/24 Zika: Zika virus screening: Negative : No PFSH PFSH Medical History Hx of varicose veins of lower extremity Depression Nodular goiter HPV (human papilloma virus) infection Thyroid disorder Pre-eclampsia Abnormal glucose Anemia Surgical History History of bunionectomy of right great toe Ophelia teeth extracted History of colposcopy Family History Mother Hypertension Father Diabetes Aunt Thyroid disorder Maternal- unknown type Social History adopted: No household members: spouse and children housing: house number of children: 2 current occupational status: unemployed current occupation: [employer] pets and animals: Yes (no litter box) [...] physical activity do you participate in: none [place]/hoahaoism: Restorationism seatbelt use: always do you feel safe at home: Yes 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 Normal [facility] Platelet countOrdered By: Miko Aguila on 12-27-2024 Platelets (Bld) [#/Vol] 236 10*3/uL 150-450 [facility] Potassium measurement (mass/ volume)Ordered By: Lyssa Aguila on 12-27-2024 Potassium (Unsp spec) [Mass/Vol] 3.9 mmol/L 3.3-5.1 [facility] Comment on above: Previous reported re sult: 4.0 mmol/LEdited by: ALEXANDER on 12/27/24:1342 AMENDED REPORT 12/27/24 1342 K previously reported as: 4.0 mmol/L RBC Auto (Bld) [#/Vol]Ordere d By: Lyssa Aguila on 12-27-2024 RBC (Bld) [#/Vol] 4.74 10*6/uL 4.2-5.4 [facility] Serum creatinine measurement (mass/volume)Ordered By: Lyssa Aguila on 12-27-2024 Creatinine [Mass/Vol] 0.62 mg/dL Low 0.70-1.20 [facility] Comment on above: Previous reported re sult: 0.65 mg/dLEdited by: ALEXANDER on 12/27/24:1342 AMENDED REPORT 12/27/24 1342 CREAT,SERUM previously reported as: 0.65 L mg/dL Serum globulin measurementOr dered By: Lyssa Aguila on 12-27-2024 Globulin (S) [Mass/Vol] 3.2 g/dL 2.2-4.2 [facility] Comment on above: Previous reported re sult: 2.6 g/dLEdited by: ALEXANDER on 12/27/24:1342 AMENDED REPORT 12/27/24 1342 GLOB previously reported as: 2.6 g/dL Serum glucose measurement (m ass/volume)Ordered By: Lyssa Aguila on 12-27-2024 Glucose [Mass/Vol] 72 mg/dL 70-99 [facility] Comment on above: Previous reported re sult: 74 mg/dLEdited by: ALEXANDER on 12/27/24:1342 AMENDED REPORT 12/27/24 1342 GLU previously reported as: 74 mg/dL Serum or plasma alanine rose otransferase (ALT) measurementOrdered By: Lyssa Aguila on 12-27-2024 ALT [Catalytic activity/Vol] 16 U/L <35 [facility] Comment on above: Previous reported re sult: 15 U/LEdited by: NADEEMS on 12/27/24:1342 AMENDED REPORT 12/27/24 134 ALT previously reported as: 15 U/L Serum or plasma albumin david urement (mass/volume)Ordered By: Lyssa Aguila on 12-27-2024 Albumin [Mass/Vol] 3.8 g/dL 3.5-5.0 [facility] Comment on above: Previous reported re sult: 4.1 g/dLEdited by: ALEXANDER on 12/27/24:1342 AMENDED REPORT 12/27/24 1342 ALB previously reported as: 4.1 g/dL Serum or plasma albumin/glob ulin mass ratioOrdered By: Lyssa Aguila on 12-27-2024 Albumin/Globulin [Mass ratio] 1.2 {ratio} 0.9-2.4 [facility] Comment on above: Previous reported re sult: 1.5 RATIOEdited by: ALEXANDER on 12/27/24:1342 AMENDED REPORT 12/27/24 1342 A/G previously reported as: 1.5 RATIO Serum or plasma alkaline brayan sphatase measurementOrdered By: Lyssa Aguila on 12-27-2024 ALP [Catalytic activity/Vol] 58 U/L 35-104 [facility] Comment on above: Previous reported re sult: 61 U/LEdited by: ALEXANDER on 12/27/24:1342 AMENDED REPORT 12/27/24 134 ALK P previously reported as: 61 U/L Serum or plasma calcium david urement (mass/volume)Ordered By: Lyssa Aguila on 12-27-2024 Calcium [Mass/Vol] 9.1 mg/dL 7.6-11.0 [facility] Comment on above: Previous reported re sult: 9.4 mg/dLEdited by: AUTOINS on 12/27/24:1342 AMENDED REPORT 12/27/241341 CA previously reported as: 9.4 mg/dL Serum or plasma urea nitroge n measurement (mass/volume)Ordered By: Lyssa Aguila on 12-27-2024 Urea nitrogen [Mass/Vol] 5 mg/dL 4-19 [facility] Sodium levelOrdered By: Yuliana Aguila on 12-27-2024 Sodium [Moles/Vol] 135 mmol/L 133-145 [facility] Syphilis Antibodieson 2024 Syphilis Abs Non-Reactive Normal Nonreactive [facility] Comment on above: Performed By: #### L 501.0900, M100.2200, L7000.1800 #### [facility] [address], [place], [id number] TSH DL <= 0.005 mIU/L QnOrde red By: Lyssa Aguila on 12-27-2024 TSH Qn 0.026 uIU/mL Low 0.300-4.200 [facility] Thyroid Stim Hormone (TSH)on 12-27-2024 TSH 0.026 uIU/mL Low 0.300-4.200 [facility] Comment on above: Performed By: #### L 501.0900, M100.2200, L7000.1800 #### [facility] [address] [place], [place], [id number] Total proteinOrdered By: Jose Aguila on 12-27-2024 Protein [Mass/Vol] 7.0 g/dL 5.9-8.4 [facility] Comment on above: Previous reported re sult: 6.7 g/dLEdited by: AUTOINS on 12/27/24:1342 AMENDED REPORT 12/27/241341 T PROT previously reported as: 6.7 g/dL Type AND Screenon 12-27-2024 Ab SCREEN GEL Negative Normal [facility] Comment on above: Order Comment: PN Performed By: #### L 501.0900, M100.2200, L7000.1800 #### [facility] [address] [place], [address] Urine cultureOrdered By: Nishant Aguirre on 12-27-2024 Bacteria identified Cx Nom (U) Culture exhibits no growth. [facility] White blood cell (WBC) count Ordered By: Lyssa Aguila on 12-27-2024 WBC (Bld) [#/Vol] 7.8 10*3/uL 4.4-11.0 [facility] Chlamydia/GC GEETA aptimaon CHLAMY,NUC ACID Negative Normal Negative [facility] Comment on above: Performed By: #### L 501.0900, M100.2200, L7000.1800 #### [facility] [address] [place], [address] GC BY NUC ACID Negative Normal Negative [facility] Comment on above: Result Comment: Perf ormed at: =G - [facility] [address] [id number] Knuckle Bender: Patrizia De La Torre MD, Phone: [phone] Performed By: #### L 501.0900, M100.2200, L7000.1800 #### [facility] [address] [place], [address] Protein+Creatinine Ratio,Uri neon 11-25-2024 PROT:CRE RATIO 51 mg/g CRE Normal 0-200 [facility] Comment on above: Performed By: #### L 501.0900, M100.2200, L7000.1800 #### [facility] [address] [place], [address] Protein (U) [Mass/Vol] 14.1 mg/dL High 0.0-12.0 [facility] Comment on above: Performed By: #### L 501.0900, M100.2200, L7000.1800 #### [facility] [address] [place], [address] UR CREAT 277.00 mg/dL High 28.00-217.00 [facility] Comment on above: Performed By: #### L 501.0900, M100.2200, L7000.1800 #### [facility] [address] [place], [address] Urine Cultureon 11-25-2024 URC Culture exhibits no growth. Normal [facility] Comment on above: Performed By: #### L 501.0900, M100.2200, L7000.1800 #### [facility] [address] [place], [place], [id number] Chlamydia trachomatis rRNA d etection by probe and target amplification methodOrdered By: Lyssa Aguila on 11-24-2024 C. trachomatis rRNA GEETA+probe Ql (Unsp spec) Negative Negative [facility] Neisseria gonorrhoeae nuclei c acid detection by amplified probe techniqueOrdered By: Lyssa Aguila on 11-24-2024 N. gonorrhoeae DNA GEETA+probe Ql (Unsp spec) Negative Negative [facility] Comment on above: Performed at: =[address] [id number] Director: Patrizia De La Torre MD, Phone: [phone] [employer] Office Visit Reporton 11-24-2024 [employer] Office Visit Report [facility] [address], [address] [place] [address] OFFICE VISIT Date of Service: 11/24/24 MR#: [id number] Acct: [id number] Name: DEMARCUS ABAD Rep #: [id number] : 1990 Provider: SULLY Boudreaux ams Age/Sex: 34/F Location: [facility] [place] [place] Status: Signed Intake Vital Signs 08/23/24 15:14 11/24/24 12:59 Height 5 ft 2 in 5 ft 2 in Weight: 166 lb 168 lb 8 oz BMI 30.3 30.8 BP 119/77 108/74 Intake Visit Reasons: NOB LMP 09/27 Chief Complaint: 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 Required: No Is patient in pain?: No Allergies Penicillins Allergy (Unknown, Verified 11/24/24 12:57) Unknown Medications ???Medication ???Instructions ???Recorded ???Confirmed ???Type ferrous sulfate 325 mg (65 mg 325 mg PO DAILY 09/05/23 11/24/24 History iron) tablet (Feosol) multivit-min no.71-iron fum 28 cap PO 11/12/24 11/24/24 History mg-folate no.1 1 mg-dha 300 mg capsule (PNV-[place]) Last Menstrual Period: 09/27/24 : Yes PFSH PFSH Medical History Hx of varicose veins of lower extremity Depression Nodular goiter HPV (human papilloma virus) infection Thyroid disorder Pre-eclampsia Abnormal glucose Anemia Surgical History History of bunionectomy of right great toe Ophelia teeth extracted History of colposcopy Family History Mother Hypertension Father Diabetes Aunt Thyroid disorder Maternal- unknown type Social History adopted: No household members: spouse and children housing: house number of children: 2 service: No current occupational status: unemployed current occupation: [employer] pets and animals: Yes (no litter box) [...] physical activity do you participate in: none [place]/hoahaoism: Restorationism seatbelt use: always do you feel safe [...] 36 live - 6lbs 14oz Female epidural [facility] [place] Delivery Date: 04/30/08 Last Updated by: Manda Aguirre [employer]IGH [employer]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 Normal [facility] Random urine creatinine david urement (mass/volume)Ordered By: Lyssa Aguila on 11-24-2024 Creatinine Unsp time (U) [Mass/Vol] 277.00 mg/dL High 28.00-217.00 [facility] Urine cultureOrdered By: Jose Aguila on 11-24-2024 Bacteria identified Cx Nom (U) Culture exhibits no growth. [facility] Urine protein measurement (m ass/volume)Ordered By: Lyssa Aguila on 11-24-2024 Protein (U) [Mass/Vol] 14.1 mg/dL High 0.0-12.0 [facility] Urine protein/creatinine mas s ratioOrdered By: Lyssa Aguila on 11-24-2024 Protein/Creatinine (U) [Mass ratio] 51 mg/g CRE 0-200 [facility] Serum human chorionic gonado tropin detection for pregnancyOrdered By: Lyssa Aguila on 08-25-2024 HCG ( test) Ql 10 mIU/mL High <4 [facility] Comment on above: hCG levels with Gest ational AgeGestational Age hCG mIU/mL (IU/L)0.2 - 1 week 5 - 501-2 weeks 50 - 5002-3 weeks 100 - 91317-3 weeks 500 - 651838-4 weeks 1000 - 486648-6 weeks 85223 - 100,0006-8 weeks 32759 - 200,0002-3 months 46916 - 100,000 hCG Titer Quant., Serumon HCG QUANT. 10 mIU/mL High 1-3 [facility] Comment on above: Order Comment: PT DI D NOT WANT TO DO DR GALLEGOS ORDERS THAT ARE INTERNAL. Result Comment: hCG levels with Gestational Age Gestational Age hCG mIU/mL (IU/L) 0.2 - 1 week 5 - 50 1-2 weeks 50 - 500 2-3 weeks 100 - 5000 3-4 weeks 500 - 56782 4-5 weeks 1000 - 71560 5-6 weeks 28170 - 100,000 6-8 weeks 86478 - 200,000 2-3 months 58121 - 100,000 Performed By: #### L 501.0900, M100.2200, L7000.1800 #### [facility] [address] [place], [address] [employer] Office Visit Reporton 08-23-2024 [employer] Office Visit Report [facility] [address], [address] [place] [address] OFFICE VISIT Date of Service: 08/23/24 MR#: [id number] Acct: [id number] Name: DEMARCUS ABAD Rep #: [id number] : 1990 Provider: SULLY Boudreaux ams Age/Sex: 34/F Location: [facility] [place] [place] Status: Signed Intake Vital Signs 08/23/24 09:05 [...] PO 08/23/24 08/23/24 History capsule ( DHA) [facility] Medical History Abnormal glucose Anemia HPV (human [...] Shlomo 36 live - 6# Male epidural [facility] Taye 08/08/21 Emalie 36 live - 6lbs 14oz Female [facility] [place]and e [place]de Delivery Date: 04/30/08 Last Updated by: Manda Aguirre 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 Normal [facility] Serum human chorionic gonado tropin detection for pregnancyOrdered By: Lyssa Aguila on 08-23-2024 HCG ( test) Ql 28 mIU/mL High <4 [facility] Comment on above: hCG levels with Gest ational AgeGestational Age hCG mIU/mL (IU/L)0.2 - 1 week 5 - 501-2 weeks 50 - 5002-3 weeks 100 - 55897-7 weeks 500 - 197683-8 weeks 1000 - 152324-9 weeks 51589 - 100,0006-8 weeks 20397 - 200,0002-3 months 59852 - 100,000 hCG Titer Quant., Serumon HCG QUANT. 28 mIU/mL High 1-3 [facility] Comment on above: Order Comment: viabi lity Result Comment: hCG levels with Gestational Age Gestational Age hCG mIU/mL (IU/L) 0.2 - 1 week 5 - 50 1-2 weeks 50 - 500 2-3 weeks 100 - 5000 3-4 weeks 500 - 55032 4-5 weeks 1000 - 37586 5-6 weeks 73636 - 100,000 6-8 weeks 52149 - 200,000 2-3 months 09190 - 100,000 Performed By: #### L 700.8000 #### [facility] [address] [place], [place], [id number] Laboratory - Chemistry and C hemistry - challengeOrdered By: Denis Galdamez on 03-11-2023 Free T4 [Mass/Vol] 0.96 ng/dL 0.76-1.46 [facility] No Panel InformationOrdered By: Denis Galdamez on 03-11-2023 Free Triiodothyronine (T3) pg/dL 3.2 pg/mL 2.18-3.98 [facility] Thyroid Stimulating Hormone (TSH) 0.41 uIU/mL 0.358-3.74 [facility] Serum or plasma thyroperoxid ase antibody assay (units/volume)Ordered By: Denis Galdamez on 03-11-2023 TPO Ab Qn 10 [IU]/mL 0-34 [facility] Comment on above: Performed at: [address] [id number] Director: Robert Peters PhD, Phone: [phone] PREGUon 09-19-2022 HCG ( test) Ql (U) Negative Normal [facility] Comment on above: Performed By: #### P REGU #### [place] [address] [address] test (u) int Not detected Invalid Interpretation Code [facility] Comment on above: Performed By: #### P REGU #### [place] [address] [address] Laboratory - Chemistry and C hemistry - challengeon 03-15-2022 Free T4 [Mass/Vol] 0.99 ng/dL 0.76-1.46 [facility] Work Phone: No Panel Informationon 03-15 Free Triiodothyronine (T3) pg/dL 3.3 pg/mL 2.18-3.98 [facility] Work Phone: Thyroid Stimulating Hormone (TSH) 0.34 uIU/mL 0.358-3.74 [facility] Work Phone: CNPRashida 12-27-2020 CNPN Telephone (OBGYWM) DEMARCUS TAMEZ ([id number]) 1990 F Date Time Provider Department 12/27/20 [...] to call patient. Unable to leave message. Solidmationt message sent. Lorenza Zheng RN Allergies As of Date: 12/27/2020 Noted Allergy Reaction BUPROPION 05/16/2016 5 - Intolerance Comments: headache PENICILLINS 05/27/2005 Date Reviewed: 10/30/2020 Reviewed by: Yanique Rodriguez LPN - Fully Assessed Reason for Visit: Early OB Cramping [Other] Primary Visit Diagnosis:Pelvic pain during [O26.899, R10.2] Order(s):HCG QUANTITATIVE [SQHCGQT] Order #: [id number] STANDING Prescriptions as of 12/27/2020 Sig: -1 ORAL Take by mouth. Problem List As Of Date 12/27/2020 Noted Resolved Thyroid goiter [E04.9] 12/30/2014 Anemia [D64.9] 01/16/2015 08/16/2016 Attention and concentration deficit [R41.840] 04/19/2015 Iron deficiency anemia secondary to inadequate *04/19/2015 Encounter Status:Closed by ROBERT AZAR [facility] ([id number]) 1990 F Date Time Provider Department 11/01/20 [...] [D64.9] Order(s):CBC + DIFF [SQCBCDIF] Order #: [id number] FUTURE IRON + TIBC [SQIRON] Order #: [id number] FUTURE Prescriptions as of 11/01/2020 Sig: -1 ORAL Take by mouth. Problem List As Of Date 11/01/2020 Noted Resolved Thyroid goiter [E04.9] 12/30/2014 Anemia [D64.9] 01/16/2015 08/16/2016 Attention and concentration deficit [R41.840] 04/19/2015 Iron deficiency anemia secondary to inadequate *04/19/2015 Encounter Status:Closed by YANIQUE RODRIGUEZ LPN on 11/01/20 Normal [facility] CBC and Differentialon 10-31 Abs Baso 0.03 k/uL Normal <0.11 [facility] Comment on above: Performed By: #### C BCDIF, CMP #### [address] [place], [place] [address] Abs Spencer 0.50 k/uL Normal <0.87 [facility] Comment on above: Performed By: #### C BCDIF, CMP #### [address] [place], [place] [id number] Abs Neut 2.90 k/uL Normal 1.45-7.50 [facility] Comment on above: Performed By: #### C BCDIF, CMP #### [facility] [address] [place], [place] [address] Absolute nRBC <0.01 Normal <0.01 [facility] Comment on above: Performed By: #### C BCDIF, CMP #### [facility] [address] [place], [place] [address] Basophils/100 WBC (Bld) 0.5 % Normal C [facility] Comment on above: Performed By: #### C BCDIF, CMP #### [address] [place] [phone] DTYPE Auto Diff Normal [facility] Comment on above: Performed By: #### C BCDIF, CMP #### [place] [phone] Eosinophils (Bld) [#/Vol] 0.12 10*3/uL Normal <0.46 [facility] Comment on above: Performed By: #### C BCDIF, CMP #### [place] [phone] Eosinophils/100 WBC (Bld) 1.9 % Normal [facility] Comment on above: Performed By: #### C BCDIF, CMP #### [place] [phone] Erythrocyte distribution width (RBC) [Ratio] 14.6 % Normal 11.5-15.0 [facility] Comment on above: Performed By: #### C BCDIF, CMP #### [place] [phone] Hematocrit (Bld) [Volume fraction] 37.2 % Normal 36.0-46.0 [facility] Comment on above: Performed By: #### C BCDIF, CMP #### [address] [place] [phone] Hemoglobin (Bld) [Mass/Vol] 11.1 g/dL Low 11.5-15.5 [facility] Comment on above: Performed By: #### C BCDIF, CMP #### [address] [place] [place] [phone] Lymphocytes (Bld) [#/Vol] 2.78 10*3/uL Normal 1.00-4.00 [facility] Comment on above: Performed By: #### C BCDIF, CMP #### [facility] [address] [place], [place] [address] Lymphocytes/100 WBC (Bld) 43.8 % Normal [facility] Comment on above: Performed By: #### C BCDIF, CMP #### [facility] [address] [place], [place] [address] MCH 24.9 pG Low 26.0-34.0 [facility] Comment on above: Performed By: #### C BCDIF, CMP #### [address] [place], [place] [address] MCHC (RBC) [Mass/Vol] 29.8 g/dL Low 30.5-36.0 [facility] Comment on above: Performed By: #### C BCDIF, CMP #### [address] [place] [address] MCV (RBC) [Entitic vol] 83.4 fL Normal 80.0-100.0 [facility] Comment on above: Performed By: #### C BCDIF, CMP #### [address] [place], [place] [address] Monocytes/100 WBC (Bld) 7.9 % Normal [facility] Comment on above: Performed By: #### C BCDIF, CMP #### [address] [place], [place] [address] Neutrophils/100 WBC (Bld) 45.9 % Normal [facility] Comment on above: Performed By: #### C BCDIF, CMP #### [address] [place], [place] [address] NRBCs 0.0 /100 WBC Normal 0 [facility] Comment on above: Performed By: #### C BCDIF, CMP #### [address] [place], [place] [address] Platelet mean volume (Bld) [Entitic vol] 10.3 fL Normal 9.0-12.7 [facility] Comment on above: Performed By: #### C BCDIF, CMP #### [facility] [place] - [employer]'s what's in store [address] [place] [address] Platelets (Bld) [#/Vol] 304 10*3/uL Normal 150-400 [facility] Comment on above: Performed By: #### C BCDIF, CMP #### [facility] [address] [place] [address] RBC (Bld) [#/Vol] 4.46 10*6/uL Normal 3.90-5.20 [facility] Comment on above: Performed By: #### C BCDIF, CMP #### [facility] [address] [place] [address] WBC (Bld) [#/Vol] 6.35 10*3/uL Normal 3.70-11.00 [facility] Comment on above: Performed By: #### C BCDIF, CMP #### [address] [place] [address] Jennifer [facility] DEMARC[facility] TAMEZ ([id number]) 1990 F Date Time Provider Department 10/31/20 [facility] During your visit today, we recorded the [...] by ANMOL ARGUELLO MA on 10/31/20 Normal [facility] Comp Metabolic Panelon 10-31 Albumin [Mass/Vol] 4.3 g/dL Normal 3.9-4.9 [facility] Comment on above: Performed By: #### C BCDIF, CMP #### [facility] [address] [place], [place] [address] ALP [Catalytic activity/Vol] 57 U/L Normal 34-123 [facility] Comment on above: Performed By: #### C BCDIF, CMP #### [facility] [address] [place], [place] [address] ALT [Catalytic activity/Vol] 13 U/L Normal 7-38 [facility] Comment on above: Performed By: #### C BCDIF, CMP #### [facility] [address] [place], [place] [address] Anion gap [Moles/Vol] 12 mmol/L Normal 9-18 [facility] Comment on above: Performed By: #### C BCDIF, CMP #### [facility] [address] [place], [place] [address] AST [Catalytic activity/Vol] 28 U/L Normal 13-35 [facility] Comment on above: Performed By: #### C BCDIF, CMP #### [facility] [address] [place], [place] [address] Bilirubin [Mass/Vol] mg/dL Low 0.2-1.3 [facility] Comment on above: Performed By: #### C BCDIF, CMP #### [facility] [address] [place] [phone] Calcium [Mass/Vol] 9.3 mg/dL Normal 8.5-10.2 [facility] Comment on above: Performed By: #### C BCDIF, CMP #### [address] [place] [address] Chloride [Moles/Vol] 105 mmol/L Normal 97-105 [facility] Comment on above: Performed By: #### C BCDIF, CMP #### [place] [address] CO2 [Moles/Vol] 23 mmol/L Normal 22-30 [facility] Comment on above: Performed By: #### C BCDIF, CMP #### [address] [place] [address] Creatinine [Mass/Vol] 0.82 mg/dL Normal 0.58-0.96 [facility] Comment on above: Performed By: #### C BCDIF, CMP #### [address] [place] [address] eGFR- Amer. >60 Normal [facility] Comment on above: Performed By: #### C BCDIF, CMP #### [place] [address] eGFR-All Other Races >60 Normal [facility] Comment on above: Result Comment: eGFR (Estimated [...] Performed By: #### C ERICA CMP #### [facility] [place] - It's what's in store [address], [place] [address] Glucose [Mass/Vol] 76 mg/dL Normal 74-99 [facility] Comment on above: Result Comment: The [place] [employer] (ADA) provides guidance for cutoff [...] Standards of Medical Care in Diabetes 2016, [place] [employer]. Diabetes Care. 2016.39(Suppl 1). Performed By: #### C ERICA CMP #### [facility] [place] [facility] in [facility] [address], [place] [address] Potassium [Moles/Vol] 3.9 mmol/L Normal 3.7-5.1 [facility] Comment on above: Performed By: #### C BCNAYAN, CMP #### [facility] [place] [facility] in [facility] [address], [place] [address] Protein [Mass/Vol] 7.0 g/dL Normal 6.3-8.0 [facility] Comment on above: Performed By: #### C BCNAYAN, CMP #### [facility] [address], [place] [address] Sodium [Moles/Vol] 140 mmol/L Normal 136-144 [facility] Comment on above: Performed By: #### C MARYCHUY MALDONADO #### [facility] [address] [place], [place] [id number] Urea nitrogen [Mass/Vol] 11 mg/dL Normal 7-21 [facility] Comment on above: Performed By: #### C BCDIF, CMP #### [facility] [address] [place], [place] [id number] D dimeron 10-31-2020 D dimer Test sent to [facility]. Normal <500 [facility] Comment on above: Result Comment: Acco unt Credited MARGARETE CNOVon 10-30-2020 CNOV Office Visit (FAMPWS) DEMARCUS TAMEZ ([id number]) 1990 F Date Time Provider Department 10/30/20 [...] Thyroid nodu (more content not included)... Normal [facility] CNOVon 09-11-2020 CNOV Office Visit (UCWSTR) DEMARCUS TAMEZ ([id number]) 1990 F Date Time Provider Department 09/11/20 8:45 AM JACEY GALDAMEZ) [facility] During your visit today, we recorded the [...] by JACEY GALDAMEZ CNP on 09/11/20 Normal [facility] Vital Signs Date Time Vital Sign Value Performing Clinician Chetan oswald 04-28-2025 10:42-0400 Body height 157.[address] Beatriz Escobar MD Work Phone: [facility] 04-28-2025 10:42-0400 Body mass index (BMI) [Ratio] 34.2 kg/m2 Dr. Beatriz Escobar MD Work Phone: [facility] 04-28-2025 10:42-0400 Body weight 84.[address] Beatriz Escobar MD Work Phone: [facility] 04-28-2025 10:42-0400 Diastolic blood pressure 71 mm[Hg] Dr. Beatriz Escobar MD Work Phone: [facility] 04-28-2025 10:42-0400 Systolic blood pressure 114 mm[Hg] Dr. Beatriz Escobar MD Work Phone: 5(454)422-132576 [place] [address] 04-18-2025 10:56-0400 Body mass index (BMI) [Ratio] 33.5 kg/m2 Dr. Beatriz Escobar MD Work Phone: 3(858)202-139876 [place] [address] 04-18-2025 10:56-0400 Body weight 83.[address] Beatriz Escobar MD Work Phone: 7(589)041-060376 [place] [address] 04-18-2025 10:56-0400 Diastolic blood pressure 71 mm[Hg] Dr. Beatriz Escobar MD Work Phone: 1(765)086-656776 [place] [address] 04-18-2025 10:56-0400 Systolic blood pressure 106 mm[Hg] Dr. Beatriz Escobar MD Work Phone: 6(150)580-371176 [place] [address] 04-02-2025 18:41-0400 Body temperature 97.9 [degF] Dr. Beatriz Escobar MD Work Phone: 9(752)488-305676 [place] [address] 04-02-2025 18:41-0400 Diastolic blood pressure 52 mm[Hg] Dr. Beatriz Escobar MD Work Phone: 0(276)102-844576 [place] [address] 04-02-2025 18:41-0400 Heart rate 75 /min Dr. Beatriz Escobar MD Work Phone: 8(635)881-551076 [place] [address] 04-02-2025 18:41-0400 Respiratory rate 16 /min Dr. Beatriz Escobar MD Work Phone: 7(072)486-649476 [place] [address] 04-02-2025 18:41-0400 SaO2% (BldA) [Mass fraction] 96 % Dr. Beatriz Escobar MD Work Phone: 6(700)412-936776 [place] [address] 04-02-2025 18:41-0400 Systolic blood pressure 94 mm[Hg] Dr. Beatriz Escobar MD Work Phone: 0(286)730-887276 [place] [address] 04-02-2025 18:35-0400 Body height 157.[address] Beatriz Escobar MD Work Phone: 1(550)512-598376 [place] [address] 04-02-2025 18:35-0400 Body mass index (BMI) [Ratio] 33.4 kg/m2 Dr. Beatriz Escobar MD Work Phone: 1(079)238-324276 [place] [address] 04-02-2025 18:35-0400 Body weight 82.[address] Beatriz Escobar MD Work Phone: 8(607)335-169076 [place] [address] 03-22-2025 10:36-0400 Body height 157.[address] Beatriz Escobar MD Work Phone: 6(741)167-087376 [place] [address] 03-22-2025 10:32-0400 Body mass index (BMI) [Ratio] 32.5 kg/m2 Dr. Beatriz Escobar MD Work Phone: 8(589)632-764276 [place] [address] 03-22-2025 10:32-0400 Body weight 80.[address] Beatriz Escobar MD Work Phone: 5(525)239-424776 [place] [address] 03-22-2025 10:32-0400 Diastolic blood pressure 75 mm[Hg] Dr. Beatriz Escobar MD Work Phone: 4(029)479-782576 [place] [address] 03-22-2025 10:32-0400 Systolic blood pressure 111 mm[Hg] Dr. Beatriz Escobar MD Work Phone: 3(397)964-969576 [place] [address] 02-21-2025 11:01-0400 Body height 157.[address] Beatriz Escobar MD Work Phone: 8(898)595-105176 [place] [address] 02-21-2025 11:01-0400 Body mass index (BMI) [Ratio] 31.1 kg/m2 Dr. Beatriz Escobar MD Work Phone: 1(596)081-851176 [place] [address] 02-21-2025 11:01-0400 Body weight 77.[address] Beatriz Escobar MD Work Phone: 8(307)489-888776 [place] [address] 02-21-2025 11:01-0400 Diastolic blood pressure 68 mm[Hg] Dr. Beatriz Escobar MD Work Phone: 8(221)742-718876 [place] [address] 02-21-2025 11:01-0400 Systolic blood pressure 103 mm[Hg] Dr. Beatriz Escobar MD Work Phone: [facility] 01-25-2025 13:59-0400 Body height 157.[address] Beatriz Escobar MD Work Phone: [facility] 01-25-2025 13:59-0400 Body mass index (BMI) [Ratio] 30.5 kg/m2 Dr. Beatriz Escobar MD Work Phone: 7(932)671-611476 [place] [address] 01-25-2025 13:59-0400 Body weight 75.[address] Beatriz Escobar MD Work Phone: 4(422)671-961476 [place] [address] 01-25-2025 13:59-0400 Diastolic blood pressure 73 mm[Hg] Dr. Beatriz Escobar MD Work Phone: 6(282)144-657276 [place] [address] 01-25-2025 13:59-0400 Systolic blood pressure 111 mm[Hg] Dr. Beatriz Escobar MD Work Phone: 8(529)979-885376 [place] [address] 01-10-2025 13:57-0400 Body height 157.[address] Beatriz Escobar MD Work Phone: 4(870)770-900676 [place] [address] 01-10-2025 13:54-0400 Body mass index (BMI) [Ratio] 30.2 kg/m2 Dr. Beatriz Escobar MD Work Phone: [facility] 01-10-2025 13:54-0400 Body weight 75.[address] Beatriz Escobar MD Work Phone: 1(041)756-307177 [place] [address] 01-10-2025 13:54-0400 Diastolic blood pressure 68 mm[Hg] Dr. Beatriz Escobar MD Work Phone: 5(361)245-031376 [place] [address] 01-10-2025 13:54-0400 Systolic blood pressure 114 mm[Hg] Dr. Beatriz Escobar MD Work Phone: 0(508)433-610576 [place] [address] 12-30-2024 13:27-0400 Body height 157.[address] Beatriz Escobar MD Work Phone: 8(052)337-980176 [place] [address] 12-30-2024 13:27-0400 Body mass index (BMI) [Ratio] 30.5 kg/m2 Dr. Beatriz Escobar MD Work Phone: [facility] 12-30-2024 13:27-0400 Body weight 75.[address] Beatriz Escobar MD Work Phone: [facility] 12-30-2024 13:27-0400 Diastolic blood pressure 72 mm[Hg] Dr. Beatriz Escobar MD Work Phone: 3(627)942-765577 [place] [address] 12-30-2024 13:27-0400 Heart rate 71 /min Dr. Beatriz Escobar MD Work Phone: 4(694)563-516276 [place] [address] 12-30-2024 13:27-0400 SaO2% (BldA) [Mass fraction] 97 % Dr. Beatriz Escobar MD Work Phone: 7(513)756-075176 [place] [address] 12-30-2024 13:27-0400 Systolic blood pressure 107 mm[Hg] Dr. Beatriz Escobar MD Work Phone: 3(999)901-078677 [address] 12-27-2024 09:51-0400 Body height 157.[address] Beatriz Escobar MD Work Phone: 4(296)890-276276 [place] [address] 12-27-2024 09:51-0400 Body mass index (BMI) [Ratio] 30.3 kg/m2 Dr. Beatriz Escobar MD Work Phone: 3(407)918-002176 [place] [address] 12-27-2024 09:51-0400 Body weight 75.[address] Beatriz Escobar MD Work Phone: 9(591)082-782877 [place] [address] 12-27-2024 09:51-0400 Diastolic blood pressure 73 mm[Hg] Dr. Beatriz Escobar MD Work Phone: 8(720)483-060976 [place] [address] 12-27-2024 09:51-0400 Systolic blood pressure 115 mm[Hg] Dr. Beatriz Escobar MD Work Phone: 2(231)996-435276 [place] [address] 11-24-2024 12:59-0400 Body height 157.[address] Beatriz Escobar MD Work Phone: [facility] 11-24-2024 12:59-0400 Body mass index (BMI) [Ratio] 30.8 kg/m2 Dr. Beatriz Escobar MD Work Phone: [facility] 11-24-2024 12:59-0400 Body weight 76.[address] Beatriz Escobar MD Work Phone: 2(107)040-098777 [place] [address] 11-24-2024 12:59-0400 Diastolic blood pressure 74 mm[Hg] Dr. Beatriz Escobar MD Work Phone: 1(223)762-169777 [address] 11-24-2024 12:59-0400 Systolic blood pressure 108 mm[Hg] Dr. Beatriz Escobar MD Work Phone: 9(659)416-699076 [place] [address] 08-23-2024 15:14-0500 Body mass index (BMI) [Ratio] 30.3 kg/m2 Dr. Beatriz Escobar MD Work Phone: 6(711)063-715977 [place] [address] 08-23-2024 15:14-0500 Body weight 75.[address] Beatriz Escobar MD Work Phone: 9(705)454-371677 [address] 08-23-2024 15:14-0500 Diastolic blood pressure 77 mm[Hg] Dr. Beatriz Escobar MD Work Phone: 5(374)321-873877 [place] [address] 08-23-2024 15:14-0500 Systolic blood pressure 119 mm[Hg] Dr. Beatriz Escobar MD Work Phone: 5(175)877-954177 [place] [address] 10-29-2022 14:07-0400 Body height 157.[address] Antony Escobar Work Phone: 0(152)466-036677 [address] 10-29-2022 14:07-0400 Body mass index (BMI) [Ratio] 29.6 kg/m2 Dr. Antony Escobar Work Phone: 9(562)435-636677 [place] [address] 10-29-2022 14:07-0400 Body weight 73.[address] Antony Escobar Work Phone: 1(799)357-646177 [place] [address] 04-25-2023 14:07-0400 Diastolic blood pressure 72 mm[Hg] Dr. Antony Escobar Work Phone: [facility] 10-29-2022 14:07-0400 Systolic blood pressure 111 mm[Hg] Dr. Antony Escobar Work Phone: [facility] 09-06-2022 08:06-0500 Blood Pressure Location HOWARD SUPPAN DPM [facility] 09-06-2022 08:06-0500 Body height 157.5 cm HOWARD SUPPAN DPM [facility] 09-06-2022 08:06-0500 Body weight 68.2 kg HOWARD SUPPAN DPM [facility] 09-06-2022 08:06-0500 Body weight 27.49 kg/m2 HOWARD SUPPAN DPM [facility] 09-06-2022 08:06-0500 Diastolic Blood Pressure Non-Invasive 76 1 HOWARD SUPPAN DPM [facility] 09-06-2022 08:06-0500 Heart rate 73 /min HOWARD SUPPAN DPM [facility] 09-06-2022 08:06-0500 Respiratory rate 20 /min HOWARD SUPPAN DPM [facility] 09-06-2022 08:06-0500 Systolic Blood Pressure Non-Invasive 98 1 HOWARD SUPPAN DPM [facility] 07-11-2022 15:11-0500 Body mass index (BMI) [Ratio] 28.9 kg/m2 Dr. Antony Escobar Work Phone: [facility] 07-11-2022 15:11-0500 Body temperature 95.8 [degF] Dr. Antony Escobar Work Phone: [facility] 07-11-2022 15:11-0500 Body weight 71.[address] Antony Escobar Work Phone: [facility] 07-11-2022 15:11-0500 Diastolic blood pressure 73 mm[Hg] Dr. Antony Escobar Work Phone: [facility] 07-11-2022 15:11-0500 Heart rate 65 /min Dr. Antony Escobar Work Phone: [facility] 07-11-2022 15:11-0500 Respiratory rate 18 /min Dr. Antony Escobar Work Phone: [facility] 07-11-2022 15:11-0500 SaO2% (BldA) [Mass fraction] 97 % Dr. Antony Escobar Work Phone: [facility] 07-11-2022 15:11-0500 Systolic blood pressure 106 mm[Hg] Dr. Antony Escobar Work Phone: [facility] Encounters Encounter Date Encounter Type Care Provider Facility Start: 05-26-2025 ambulatory Beatriz Pro lity:[facility] Start: 05-16-2025 End: 05-16-2025 ambulatory Beatriz Escobar [place] Start[place] 05-09-2025 ambulatory Carmelita Westty:[facility] Start: 05-02-2025 ambulatory Beatriz Benton lity:[facility] Start: 04-28-2025 End: 04-28-2025 ambulatory Beatriz Escobar [place] Start: 04-26-2025 End: 04-26-2025 ambulatory Manda Austin Facility:[facility] Start: 04-18-2025 End: 04-18-[address] Beatriz Escobar MD Work Phone: [facility] Start: 04-18-2025 End: 04-18-[address] Carmelita Weeks DO [facility] Work Phone: Start: 04-18-2025 End: 04-18-2025 ambulatory Carmelita Weeks Facility:[facility] Start: 04-03-2025 ambulatory Beatriz Benton lity:[facility] Start: 04-03-2025 Non-patient / Non-visit Dr. William knight MD -[facility] Work Phone: Start: 04-02-2025 End: 04-02-[address] Beatriz Escobar MD Work Phone: -[facility] Start: 04-02-2025 End: 04-02-[address] William Ceballos MD -[facility] Work Phone: Start: 03-22-2025 End: 03-22-2025 Patient encounter procedure Manda GAYTAN -[facility] Work Phone: Start: 03-22-2025 End: 03-22-[address] Beatriz Escobar MD Work Phone: -[facility] Start: 03-01-2025 End: 03-01-2025 ambulatory MENAPAMELA Dae [facility] Start: 02-21-2025 End: 02-21-2025 Patient encounter procedure Lyssa Aguila CNM -[facility] Work Phone: Start: 02-21-2025 End: 02-21-[address] Beatriz Escobar MD Work Phone: -[facility] Start: 02-21-2025 End: 02-21-2025 ambulatory Beatriz Escobar Facility:[facility] Start: 02-08-2025 End: 02-08-2025 ambulatory MANDA AGUIRRE [facility] Start: 01-25-2025 End: 01-25-[address] Gaby Trimble MD -[facility] Work Phone: Start: 01-25-2025 End: 01-25-[address] Beatriz Escobar MD Work Phone: -[facility] Start: 01-17-2025 End: 01-17-[address] Beatriz Escobar MD Work Phone: -[facility] Start: 01-17-2025 End: 01-17-[address] Denis Galdamez MD -[facility] Start: 01-17-2025 End: 01-17-2025 ambulatory Denis Galdamez Facility:[facility] Start: 01-10-2025 End: 01-10-2025 Patient encounter procedure Manda Aguirre NP-C -[facility] Work Phone: Start: 01-10-2025 End: 01-10-[address] Beatriz Escobar MD Work Phone: -[facility] Start: 12-30-2024 End: 12-30-[address] Denis Galdamez MD -[facility] Work Phone: Start: 12-30-2024 End: 12-30-[address] Beatriz Escobar MD Work Phone: [facility] Work Phone: Start: 12-27-2024 End: 12-27-2024 Patient encounter procedure Manda Aguirre NP-C -[facility] Work Phone: Start: 12-27-2024 End: 12-27-[address] Beatriz Escobar MD Work Phone: [facility] Work Phone: Start: 12-27-2024 End: 12-27-2024 ambulatory Beatriz Escobar Facility:[facility] Start: 11-24-2024 End: 11-24-[address] Beatriz Escobar MD Work Phone: [facility] Work Phone: Start: 11-24-2024 End: 11-24-2024 Patient encounter procedure Lyssa Aguila CNM -[facility] Work Phone: Start: 11-24-2024 End: 11-24-2024 Patient encounter procedure Lyssa Aguila CNM -[facility] Work Phone: Start: 11-24-2024 End: 11-24-[address] Beatriz Escobar MD Work Phone: [facility] Work Phone: Start: 11-24-2024 End: 11-24-2024 ambulatory [facility] Facility:[facility] Start: 08-25-2024 End: 08-25-2024 Patient encounter procedure Lyssa Aguila CNM -[facility] Start: 08-25-2024 End: 08-25-2024 ambulatory [facility] Facility:[facility] Start: 08-23-2024 End: 08-23-2024 Patient encounter procedure Lyssa WARD -[facility] Work Phone: Start: 08-23-2024 End: 08-23-2024 ambulatory [facility] Facility:[facility] Start: 08-23-2024 End: 08-23-2024 Patient encounter procedure Lyssa Aguila CNM -[facility] Start: 08-23-2024 End: 08-23-2024 ambulatory Beaver Shawn Facility:[facility] Start: 03-11-2023 End: 03-11-2023 ambulatory [facility] Work Phone: Start: 03-11-2023 End: 03-11-2023 Patient encounter procedure [facility] Start: 10-29-2022 End: 10-29-[address] Antony Escobar Work Phone: [facility] Work Phone: Start: 10-29-2022 End: 10-29-[address] Antony Escobar Work Phone: [facility]-Laboratory, Specimen Start: 10-29-2022 End: 10-29-[address] Antony Escobar Work Phone: [facility] Start: 09-19-2022 End: 09-19-2022 ambulatory HOWARD N ALAINA DPM Facility:[facility] Start: 09-06-2022 End: 09-07-2022 ambulatory HOWARD N SUPPRADHA DPM Facility:[facility] Start: 09-06-2022 End: 09-06-2022 Admission to [facility] HOWARD Sears KAITRADHA DPM [facility] Start: 07-11-2022 End: 07-11-[address] Antony Escobar Work Phone: [facility] Start: 03-15-2022 End: 03-15-2022 ambulatory [facility] Work Phone: Start: 03-15-2022 End: 03-15-2022 Patient encounter procedure [facility]Laboratory, [facility] Start: 03-14-2022 End: 03-14-2022 ambulatory [facility] Work Phone: Start: 03-14-2022 End: 03-14-2022 Patient encounter procedure [facility]-Ultrasound, [facility] Procedures Date Procedure Procedure Detail Performing Clinician [...] HCV Quant by PCR testing - HCVPCR #[id number] Non Reactive: < 0.8 Equivocal: >/= 0.8 [...] Date Care Activity Detail Author Start: 04-28-2025 [facility] Start: 04-28-2025 End: 04-28-2025 Patient encounter procedure Advanced maternal age (AMA) in -[place] [facility] Work Phone: Start: 04-26-2025 Patient encounter procedure Registered Clinical -Laboratory Work Phone: Start: 04-02-2025 Nonstress test [facility] Start: 04-02-2025 Obstetric monitoring [facility] Start: 04-02-2025 Vital signs measurements [facility] Start: 04-02-2025 [facility] Start: 04-02-2025 Patient discharge [facility] Start: 03-22-2025 Measurement of glucose 2 hours after glucose challenge for glucose tolerance test [facility] Start: 03-22-2025 Serologic test for syphilis [facility] Start: 03-22-2025 [facility] Start: 02-21-2025 CBC W Auto Differential panel - Blood [facility] Start: 01-10-2025 [facility] Start: 12-27-2024 CBC W Auto Differential panel - Blood [facility] Start: 12-27-2024 Comprehensive metabolic 1999 panel - Serum or Plasma [facility] Start: 12-27-2024 Hemoglobin A1c/Hemoglobin.total in Blood [facility] Start: 12-27-2024 Hepatitis C antibody measurement [facility] Start: 12-27-2024 Rubella IgG measurement [facility] Start: 12-27-2024 Serologic test for syphilis [facility] Start: 12-27-2024 Thyroid stimulating hormone measurement [facility] Start: 12-27-2024 [facility] Start: 12-27-2024 Procedure [facility] Start: 10-29-2022 Liquid based cervical cytology screening [facility] Alanine aminotransfe rase [Enzymatic activity/volume] in Serum or Plasma [facility] Albumin [Mass/volume ] in Serum or Plasma [facility] Alkaline phosphatase [Enzymatic activity/volume] in Serum or Plasma [facility] Anion gap in Serum or Plasma [facility] Bilirubin, total measurement [facility] BUN/Creatinine ratio [facility] Calcium [Mass/volume ] in Serum or Plasma [facility] Carbon dioxide, tota l [Moles/volume] in Central venous blood [facility] CBC W Auto Different ial panel - Blood [facility] CBC W Auto Different ial panel - Blood [facility] Chlamydia deoxyribon ucleic acid detection [facility] Comprehensive metabo lic 1999 panel - Serum or Plasma [facility] Creatinine [Mass/vol ume] in Serum or Plasma [facility] Erythrocyte mean cor puscular volume determination [facility] Erythrocyte mean cor puscular volume determination [facility] Glucose [Mass/volume ] in Serum or Plasma [facility] Hematocrit [Volume F raction] of Blood [facility] Hematocrit [Volume F raction] of Blood [facility] Hemoglobin [Mass/vol ume] in Blood [facility] Hemoglobin [Mass/vol ume] in Blood [facility] Hemoglobin A1c/Hemoglobin.total in Blood [facility] Hepatitis B virus elmore rface Ag [Presence] in Serum [facility] Hepatitis C antibody measurement [facility] Leukocytes [#/volume ] in Blood [facility] Leukocytes [#/volume ] in Blood [facility] Mean corpuscular hem oglobin concentration determination [facility] Mean corpuscular hem oglobin concentration determination [facility] Mean corpuscular hem oglobin determination [facility] Mean corpuscular hem oglobin determination [facility] Measurement of renal function [facility] Neutrophil count [facility] Neutrophil count [facility] Neutrophil percent differential count [facility] Neutrophil percent differential count [facility] Path report.final Dx Spec [facility] Patient Education Kick Counts ED False Labor OB Triage: Return to Hospital or Notify Physician if you Experience: [facility] Work Phone: Platelets [#/volume] in Blood [facility] Platelets [#/volume] in Blood [facility] Potassium measurement [facility] Protein/Creatinine [ Ratio] in Urine [facility] Red blood cell count [facility] Red blood cell count [facility] Red cell distributio n width determination [facility] Red cell distributio n width determination [facility] Rubella IgG measurement [facility] Serologic test for syphilis [facility] Serum chloride measurement [facility] Sodium measurement [facility] T4 free measurement [facility] T4 free measurement [facility] T4 free measurement [facility] Thyroid stimulating hormone measurement [facility] Thyroid stimulating hormone measurement [facility] Thyroid stimulating hormone measurement [facility] Thyroid stimulating hormone measurement [facility] Thyroperoxidase Ab [Units/volume] in Serum or Plasma [facility] Total protein measurement [facility] Triiodothyronine, fr ee measurement [facility] Triiodothyronine, fr ee measurement [facility] Triiodothyronine, fr ee measurement [facility] Urea nitrogen [Mass/ volume] in Serum or Plasma [facility] Payers Date Payer Category Payer Self-pay [id number] Unknown [id number] 2022 Unknown [id number] 1990 Unknown [id number] 2.16.840.1.501586.3.579.2.627 1990 Unknown [id number] 2.16.840.1.356066.3.579.2.627 1990 Unknown [id number] 2.16.840.1.986571.3.579.2.479 1990 Unknown [id number] 2.16.840.1.662464.3.579.2.479 Unknown [facility] [id number] Unknown [id number] 2.16.840.1.236479.3.579.2.462 Unknown [id number] 2.840.1.119482.3.579.2.462 Unknown [id number] 2.16840.1.642346.3.579.2.462 Unknown [id number] 2.16840.1.671018.3.579.2.462 Unknown [id number] 2.16840.1.943991.3.579.2.462 Unknown [id number] 2.16.840.1.443231.3.579.2.462 Unknown [id number] 2.16840.1.631491.3.579.2.462 Unknown [id number] 2.16840.1.576235.3.579.2.462 Unknown [id number] 2.16840.1.172197.3.579.2.462 Unknown [id number] 2.16840.1.410371.3.579.2.462 Unknown [id number] 2.16.840.1.616935.3.579.2.462 Unknown [id number] 2.16.840.1.894531.3.579.2.462 Unknown [id number] 2.16.840.1.208649.3.579.2.462 Unknown [id number] 2.16.840.1.530884.3.579.2.462 Unknown [id number] 2.16.840.1.011713.3.579.2.462 Unknown [id number] 2.16.840.1.399171.3.579.2.462 Unknown [id number] 2.16.840.1.727829.3.579.2.462 Unknown [id number] 2.16.840.1.031285.3.579.2.462 Unknown [id number] 2.16.840.1.240751.3.579.2.462 Unknown [id number] 2.16.840.1.087609.3.579.2.462 Unknown [id number] 2.16.840.1.606859.3.579.2.462 Unknown [id number] 2.16.840.1.259489.3.579.2.462 Unknown [id number] 2.16.840.1.203514.3.579.2.462 Unknown [id number] 2.16.840.1.953124.3.579.2.462 Social History Date Type Detail Facility Start: 09-19-2021 End: 10-29-2022 Tobacco smoking status OHIS Unknown if ever smoked [facility] Start: 1990 Sex Assigned At Female [facility] Start: 09-06-2022 End: 11-12-2024 Tobacco smoking status Never smoked tobacco (finding) [facility] Sex Female [facility] Functional Status Date Assessment Result Facility 09-06-2022 Functional Status Sensory Deficits None [facility] Clinical Notes 09-11-2020 to 04-18-2025 Note Date & Type Note Facility 04-18-2025 Progress note [facility] 03-22-2025 Progress note [facility] 01-10-2025 Evaluation note Diagnosis Onset Date [...] Obesity affecting acute February 21 10:57am acute February 21, 2 025 10:57am [...] thyroid nodule chronic Octobe r 2024 10:40am [facility] Work Phone: [phone]) [phone] Evaluation note* Diagnosis Onset Date Resolution Status [...] acute 2024 10:18am Hot thyroid nodule chronic Sept2024 10:18am Trauma during acute S eptember 2024 6:20pm [facility] Work Phone: 1(653) 281-789705-21-2025 Evaluation note* Diagnosis Onset Date Resolution Status [...] Nodular goiter chronic December 27, 2024 9:40am [facility] Work Phone: 1(291) 144-175205-21-2025 Evaluation note* Diagnosis Onset Date Resolution Status [...] Hot thyroid nodule acute December 062024 1:26pm [facility] Work Phone: 1(717) 792-926405-21-2025 Evaluation note* Diagnosis Onset Date Resolution Status [...] Nodular goiter chronic January 10, 2025 1:49pm [facility] Work Phone: 1(642) 105-900305-21-2025 Evaluation note* Diagnosis Onset Date Resolution Status [...] Thyroid nodule resolved January 25, 2025 1:51pm [facility] Work Phone: 1(918) 343-117105-21-2025 Evaluation note* Diagnosis Onset Date Resolution Status [...] thyroid nodule chronic February 21, 2025 10:57am [facility] Work Phone: 1(686) 750-224605-21-2025 Evaluation note* Diagnosis Onset Date Resolution Status [...] February 21, 2025 10:57am acute February 21, 10:57am Supervision of high-risk acute February 21 [...] 10:18am Hot thyroid nodule chronic 2024 10:18am [facility] Work Phone: 1(286) 685-947605-21-2025 Progress [facility] [address] [place] [address], [address] [place] [address] OFFICE VISIT Date of Service: 11/24/24 MR#: [id number] Acct: [id number] Name: DEMARCUS ABAD Rep #: [id number] : 1990 Provider: SULLY Aguila Age/Sex: 34/F Location: [facility] [place] [place] Status: Signed Intake Vital Signs 08/23/24 15:14 11/24/24 12:59 Height 5 ft 2 in 5 ft 2 in Weight: 166 lb 168 lb 8 oz BMI 30.3 30.8 BP 119/77 108/74 Intake Visit Reasons: NOB LMP 09/27 Chief Complaint: 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 Required: No Is patient in pain?: No Allergies Penicillins Allergy (Unknown, Verified 11/24/24 12:57) Unknown Medications ?Medication ?Instructions ?Recorded ?Confirmed ?Type ferrous sulfate 325 mg (65 mg 325 mg PO DAILY 09/05/23 11/24/24 History iron) tablet (Feosol) multivit-min no.71-iron fum 28 cap PO 11/12/24 5 History mg-folate no.1 1 mg-dha 300 mg capsule (PNV-[place]) Last Menstrual Period: 09/27/24 : Yes PFSH PFSH Medical History Hx of varicose veins of lower extremity Depression Nodular goiter HPV (human papilloma virus) infection Thyroid disorder Pre-eclampsia Abnormal glucose Anemia Surgical History History of bunionectomy of right great toe Ophelia teeth extracted History of colposcopy Family History Mother Hypertension Father Diabetes Aunt Thyroid disorder Maternal- unknown type Social History adopted: No household members: spouse and children housing: house number of children: 2 service: No current occupational status: unemployed current occupation: [employer] pets and animals: Yes (no litter box) [...] physical activity do you participate in: none mad[place]/hoahaoism: Restorationism seatbelt use: always do you feel safe [...] Shlomo 36 live - 6# Male epidural [facility] Taye 08/08/21 Emalie 36 live - 6lbs 14oz Female ep idural [facility] Edda Veljaime Delivery Date: 04/30/08 Last Updated by: Manda Aguirre HIGH SCHOOL BIOLOGY TEACHER, HIGH SCHOOL BIOLOGY TEACHER-C Induced to preeclampsia, teen Delivery Date: 08/08/21 [...] Thyroid dysfunction (Thyroid nodule), Drug/latex allergies/reactions (PCN), Sign Poster surgery (Colposcopy), Operations/hospitalizations (wisdom teeth, bunionectomy-right), History [...] HPV test positive: Status: Acute Comment: 04/2020 CC, record scanned (12) Thyroid nodule: Status: Acute Comment: Recent dx: normal labs. did not get US of thyroid done. (13) History of colposcopy: Status: Acute Comment: [facility] pap 04/2020 pos HPV, neg pap. Neg colp wo bx per RR at [facility] 05/2020 Orders: Orders CBC W/Diff, Automated 11/12/24 O09.90 - Supervision of high risk , unspecified, unspecified trimester Type & Screen 11/12/24 O. - Supervision of high risk , unspecified, unspecified trimester Rubella IgG 11/12/24 O09.90 - Supervision of high risk , unspecified, unspecified trimester Hepatitis C Antibody 11/12/24 O. - Supervision of high risk , unspecified, unspecifiedtrimester Hepatitis B Surface Antigen 11/12/24 O.90 - Supervision of high risk , unspecified, unspecified trimester Culture, Urine 11/12/24 O. - Supervision of high risk , unspecified, unspecified trimester Syphilis Antibodies 11/12/24 O. - Supervision of high risk , unspecified, unspecified trimester Chlamydia/GC GEETA aptima 11/12/24 O. - Supervision of high risk , unspecified, unspecified trimester HIV 11/12/24 O.90 - Supervision of high risk , unspecified, unspecified trimester Hemoglobin A1c 11/12/24 O09.90 - Supervision of high risk , unspecified, unspecified trimester, O99.210 - Obesity complicating , unspecified trimester Comprehensive Metabolic Profil 11/12/24 O. - Supervision of high risk , unspecified, unspecified trimester Protein+Creatinine Ratio,Urine 11/12/24 O. - Supervision of high risk [...] Cosigner Signature: Date (if applicable) CC: ~ [facility]02-17-2025 Evaluation note* Diagnosis Onset Date Resolution [...] Nodular goiter chronic November 24, 2024 12:49pm [facility] Work Phone: 1([phone]) 196-452104-26-2021 NoteHNO ID: [id number] Author: Brian Alcocer Service: ? Author Type: [...] suspect is musculoskeletal. Get (more content not included)...[facility]03-08-2021 NoteHNO ID: [id number] Author: Jacey Galdamez Service: ? Author Type: Nurse Practitioner Type: Progress Notes Filed: 09/11/2020 9:25 AM Note Text: Subjective Patient triaged in [facility] care. Patient presenting with intermittent dizziness, left chest pain, left arm numbness for months. Denies cardiac history. Discussed limitations of express care, I will refer to family medicine. Patient appears in on distress today. I advised if s/s become severe needs to go to [facility] Future Appointments [facility] Evaluation noteNo assessment information available [facility] Work Phone: Evaluation note* Diagnosis Onset Date Resolution Status Nodular goiter acute Encounter for routine gynecological examination noneactive [facility] Work Phone: History and physical note [facility] Medical Records Department [address] [place] [address] OB Triage Physician Note 04/03/25 1535 MR#: [id number] Acct: [id number] Name: DEMARCUS ABAD Rep #:[id number] : 1990 35 From: William Ceballos MD PCP: Dr. Beatriz Escobar MD Status :DEP CLI Y Location: [facility] HPI - General HPI Narrative DEMARCUS [...] 1 mg-dha 300 mg 1 cap capsule (PNV-[place]) methimazole 5 mg tablet 2.5 mg (1/2 x 5 mg) PO .ever y 01/17/25 03/30/25 08:00 Rx other day #15 tabs 2.5 mg Allergy/AdvReac Type Severity Reaction Status Date / Time Penicillins Allergy Unknown Unknown Verified 04/02/25 18:30 Family History Mother Hypertension Father Diabetes Aunt Thyroid disorder Maternal- unknown type Surgical History History of bunionectomy of right great toe Ophelia teeth extracted History of colposcopy Social History adopted: No household members: spouse and children housing: house number of children: 2 current occupational status: unemployed current occupation: [employer] pets and animals: Yes (no litter box) [...] physical activity do you participate in: none madison/hoahaoism: Restorationism seatbelt use: always do you feel safe at home: Yes additional social history: Medardo- Cytosorbents Maintenance [facility] History 4 Elective abortions Hx Para 2 Spontaneous abortions 1 Hx # Term Pregnancies Ectopic pregnancies Hx # Pregnancies 2 Multiple births # of living children 2 Past Pregnancies Del. Date Name GA/Weeks Outcome Route Bth Weight Gen Labor Lgth Anesthesia Del Locatn Provider FOB Unknown 08/2024 6 spontaneous 04/30/08 Shlomo 36 live - 6# Male epidural [facility] Taye 08/08/21 Emalie 36 live - 6lbs 14oz Female ep idural [facility] [place] Delivery Date: 04/30/08 Last Updated by: Manda Aguirre HIGH SCHOOL BIOLOGY TEACHER, HIGH SCHOOL BIOLOGY TEACHER-C Induced to preeclampsia, teen Delivery Date: 08/08/21 [...] G ood FM. Discussed managing sciatic pain. [facility] NST FHR Rate Baby A NST Reactive:: [...] MD; Dr. William Ceballos MD ~ Signed [facility] Author William akilah [facility] Note Date/Time April 03, 2025 3:40pm [facility] Medical Records Department [address] [place] [address] OB Triage Physician Note 04/03/25 1535 MR#: [id number] Acct: [id number] Name: DEMARCUS ABAD Rep #:[id number] : 1990 35 From: William Ceballos MD PCP: Dr. Beatriz Escobar MD Status :[facility] Y Location: [facility] HPI - General HPI Narrative DEMARCUS [...] 1 mg-dha 300 mg 1 cap capsule (PNV-[place]) methimazole 5 mg tablet 2.5 mg (1/2 x 5 mg) PO .ever y 01/17/25 03/30/25 08:00 Rx other day #15 tabs 2.5 mg Allergy/AdvReac Type Severity Reaction Status Date / Time Penicillins Allergy Unknown Unknown Verified 04/02/25 18:30 Family History Mother Hypertension Father Diabetes Aunt Thyroid disorder Maternal- unknown type Surgical History History of bunionectomy of right great toe Ophelia teeth extracted History of colposcopy Social History adopted: No household members: spouse and children housing: house number of children: 2 current occupational status: unemployed current occupation: [employer] pets and animals: Yes (no litter box) [...] physical activity do you participate in: none mad[place]/hoahaoism: Restorationism seatbelt use: always do you feel safe [...] Shlomo 36 live - 6# Male epidural [facility] Taye 08/08/21 Emalie 36 live - 6lbs 14oz Female ep idural [facility] [place] Delivery Date: 04/30/08 Last Updated by: Manda Aguirre HIGH SCHOOL BIOLOGY TEACHER, HIGH SCHOOL BIOLOGY TEACHER-C Induced to preeclampsia, teen Delivery Date: 08/08/21 [...] ood FM. Discussed managing sciatic pain. [facility] NST FHR Rate Baby A NST Reactive:: Yes FHR Category:: Category I Assessment & Plan (1) Trauma during : COMMENT: Minimal trauma per history and symptoms. Reactive nonstress test and patient is Rh+. Recommended routine follow-up. Will discharge to home. 04/03/25 1540 <Electronically signed by William Limon D> Date _ William Ceballos MD Cosigner Signature (if applicable): Date CC: Dr. Beatriz Escobar MD; Dr. William Ceballos MD ~ Signed [facility] Work Phone: Hospital course Narrative No data available for this section [facility] Hospital Discharge instructions No data available for this section [facility] Progress note No data available for this section [facility] Progress note Author Lsysa Aguila [facility] Note Date/Time November 24, 2024 1:35p m [facility]'s [address], [address] [place] [address] OFFICE VISIT Date of Service: 11/24/24 MR#: [id number] Acct: [id number] Name: DEMARCUS ABAD Rep #: [id number] : 1990 Provider: SULLY Aguila Age/Sex: 34/F Location: [facility] [place] [place] Status: Signed Intake Vital Signs 08/23/24 15:14 11/24/24 12:59 Height 5 ft 2 in 5 ft 2 in Weight: 166 lb 168 lb 8 oz BMI 30.3 30.8 BP 119/77 108/74 Intake Visit Reasons: NOB LMP 09/27 Chief Complaint: 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 Required: No Is patient in pain?: No Allergies Penicillins Allergy (Unknown, Verified 11/24/24 12:57) Unknown Medications ?Medication ?Instructions ?Recorded ?Confirmed ?Type ferrous sulfate 325 mg (65 mg 325 mg PO DAILY 09/05/23 11/24/24 History iron) tablet (Feosol) multivit-min no.71-iron fum 28 cap PO 11/12/24 5 History mg-folate no.1 1 mg-dha 300 mg capsule (PNV-[place]) Last Menstrual Period: 09/27/24 : Yes PFSH PFSH Medical History Hx of varicose veins of lower extremity Depression Nodular goiter HPV (human papilloma virus) infection Thyroid disorder Pre-eclampsia Abnormal glucose Anemia Surgical History History of bunionectomy of right great toe Ophelia teeth extracted History of colposcopy Family History Mother Hypertension Father Diabetes Aunt Thyroid disorder Maternal- unknown type Social History adopted: No household members: spouse and children housing: house number of children: 2 service: No current occupational status: unemployed current occupation: [employer] pets and animals: Yes (no litter box) [...] physical activity do you participate in: none mad[place]/hoahaoism: Restorationism seatbelt use: always do you feel safe [...] Shlomo 36 live - 6# Male epidural [facility] Taye 08/08/21 Emalie 36 live - 6lbs 14oz Female ep idural [facility] [place] Delivery Date: 04/30/08 Last Updated by: Manda Aguirre HIGH SCHOOL BIOLOGY TEACHER, HIGH SCHOOL BIOLOGY TEACHER-C Induced to preeclampsia, teen Delivery Date: 08/08/21 [...] Thyroid dysfunction (Thyroid nodule), Drug/latex allergies/reactions (PCN), Sign Poster surgery (Colposcopy), Operations/hospitalizations (wisdom teeth, bunionectomy-right), History [...] (13) History of colposcopy: Status: Acute Comment: [facility] pap 04/2020 pos HPV, neg pap. Neg colp wo bx per RR at [facility] 05/2020 Orders: Orders CBC W/Diff, Automated 11/12/24 [...] to patient and patient chose: NIPT 11/24/24 2936 <Electronically signed by Lyssa preston CNM> Date _ Lyssa Aguila CNM Cosigner Signature: Date (if applicable) CC: ~ [facility] Work Phone: Progress note Author Manda Aguirre [facility] Note Date/Time March 22, 2025 10:55am [facility] [address], [address] [place] [address] OFFICE VISIT Date of Service: 03/22/25 MR#: [id number] Acct: [id number] Name: DEMARCUS ABAD Rep #: [id number] : 1990 Provider: LUCILA Aguirre Age/Sex: 35/F Location: [facility] [place] [place] Status: Signed Intake Vital Signs 01/25/25 13:59 02/21/25 11:01 03/22/25 10:32 03/22/25 10:36 Height 5 ft 2 in 5 ft 2 in 5 ft 2 in 5 ft 2 in Weight: 178 lb 1 oz BMI 32.5 BP 111/75 Intake Visit Reasons: 24wk ob Chief Complaint: 24 Week OB 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 Required: No Is patient in pain?: No Allergies Penicillins Allergy (Unknown, Verified 03/22/25 10:35) Unknown Medications ?Medication ?Instructions ?Recorded ?Confirmed ?Type ferrous sulfate 325 mg (65 mg 325 mg PO DAILY 09/05/23 03/22/25 History iron) tablet (Feosol) multivit-min no.71-iron fum 28 cap PO 11/12/24 5 History mg-folate no.1 1 mg-dha 300 mg capsule (PNV-[place]) methimazole 5 mg tablet 2.5 mg (1/2 [...] History of bunionectomy of right great toe Ophelia teeth extracted History of colposcopy Family History Mother Hypertension Father Diabetes Aunt Thyroid disorder Maternal- unknown type Social History adopted: No household members: spouse and children housing: house number of children: 2 current occupational status: unemployed current occupation: [employer] pets and animals: Yes (no litter box) [...] physical activity do you participate in: none [place]/hoahaoism: Restorationism seatbelt use: always do you feel safe at home: Yes 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 Date Name GA/Weeks Outcome Route Bth Weight Infant Gen Labor Lgth Anesthesia Del Locatn Provider FOB Unknown 08/2024 6 spontaneous 04/30/08 Shlomo 36 live - 6# Male epidural [facility] Taye 08/08/21 Emalie 36 live - 6lbs 14oz Female ep idural [facility] [place] Delivery Date: 04/30/08 Last Updated by: Manda Aguirre HIGH SCHOOL BIOLOGY TEACHER, HIGH SCHOOL BIOLOGY TEACHER-C Induced to preeclampsia, teen Delivery Date: 08/08/21 [...] Symptoms of Preeclampsia, Infant Feeding No , [place] Education and Family Medical Leave or Disability [...] up. 03/22/25 1056 <Electronically signed by Manda Hasting s HIGH SCHOOL BIOLOGY TEACHER HIGH SCHOOL BIOLOGY TEACHER-C> Date _ Mandamal Thomass HIGH SCHOOL BIOLOGY TEACHER HIGH SCHOOL BIOLOGY TEACHER-C Cosigner Signature: Date (if applicable) CC: ~ [facility] Work Phone: Progress note Author Carmelita Cary [facility] Note Date/Time April 18, 2025 1 1:47am [facility] [address] [place] [address], [address] [place] [address] OFFICE VISIT Date of Service: 04/18/25 MR#: [id number] Acct: [id number] Name: DEMARCUS ABAD Rep #: [id number] : 1990 Provider: Dr. Sandra Weeks DO Age/Sex: 35/F [place] [facility] Status: Signed Intake Vital Signs 01/25/25 13:59 04/02/25 18:35 04/18/25 10:56 04/18/25 10:59 Height 5 ft 2 in 5 ft 2 in 5 ft 2 in 5 ft 2 in Weight: 183 lb 9 oz BMI 33.5 BP 106/71 Intake Visit Reasons: 28wk ob/glucose 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 Required: No Is patient in pain?: No Allergies Penicillins Allergy (Unknown, Verified 04/18/25 10:56) Unknown Medications ?Medication ?Instructions ?Recorded ?Confirmed ?Type multivit-min no.71-iron fum 28 1 cap PO DAILY 11/12/24 04/18/25 History mg-folate no.1 1 mg-dha 300 mg capsule (PNV-[place]) methimazole 5 mg tablet 2.5 mg (1/2 [...] History of bunionectomy of right great toe Ophelia teeth extracted History of colposcopy Family History Mother Hypertension Father Diabetes Aunt Thyroid disorder Maternal- unknown type Social History adopted: No household members: spouse and children housing: house number of children: 2 current occupational status: unemployed current occupation: [employer] pets and animals: Yes (no litter box) [...] physical activity do you participate in: none madison/hoahaoism: Restorationism seatbelt use: always do you feel safe at home: Yes 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 Date Name GA/Weeks Outcome Route Bth Weight Gen Labor Lgth Anesthesia Del Locatn Provider FOB Unknown 08/2024 6 spontaneous 04/30/08 Shlomo 36 live - 6# Male epidural [facility] Taye 08/08/21 Emalie 36 live - 6lbs 14oz Female ep idural [facility] [place] Delivery Date: 04/30/08 Last Updated by: Manda Aguirre HIGH SCHOOL BIOLOGY TEACHER, HIGH SCHOOL BIOLOGY TEACHER-C Induced to preeclampsia, teen Delivery Date: 08/08/21 [...] 111/75 Negative -?-?-?-?-?-?-?-?-?-?-?-?- Negative 142 26 -?-?-?-?-?-?-?-?-?-?-?-?- -No VB, LOF. G ood FM. Discussed managing [...] Larc, Signs and Symptoms of Preeclampsia, Feeding No , [place] Education and Family Medical Leave or Disability [...] trimester Comment: PRR , ROSE 07/04/25, boy Checo Riley, Medardo (6) : Status: Acute Qualifiers: Weeks [...] Cosigner Signature: Date (if applicable) CC: ~ [facility] Work Phone: Reason for referral (narrative)No reason for referral [facility] Work Phone: Summary Purpose Family History [...] August 16, 2 022 3:11pm Power of Hydraulic Specialist No August 16, 2021 3:11pm Chief Complaint and Reason for Visit Chief Complaint THYROID NODULE Chief Complaint Thyroid Annual (NURSERY NURSE) Reason for Visit Nodular goiter Encounter for [...] March 22, 2025 10:18am Supervision of high-risk Mandye mber 2024 10:18am UTI in March 22, [...] section and content) DATE CREATED AUTHOR 08/26/2021 [facility] DATE CREATED AUTHOR AUTHOR'S ORGANIZ ATION 09/23/2022 [facility] DATE CREATED AUTHOR AUTHOR'S ORGANIZ ATION 03/03/2025 [facility] DATE CREATED AUTHOR AUTHOR'S ORGANIZ ATION 05/18/2025 [place] [facility] Goals (unrecognized section and content) Type [...] Role: Primary Care Physician Address: Address: [address] [place] [address]- Care Team Related Persons Name: MEDARDO ABAD Address: Home [address] [place] [address] Care Teams (unrecognized sec tion and content) [...] August 23, 2024 End: August 23, 2024 Lysas Aguila CNM Attending Provider Active S tart: [...] 2024 End: December 27, 2024 Manda Aguirre HIGH SCHOOL BIOLOGY TEACHER, HIGH SCHOOL BIOLOGY TEACHER-C Attending Provider Active Start: December 27, 2024 End: December 27, 2024 Team Status: Active Member Role Status Dates Dr. Beatriz Escobar MD Primary Care Provider Acti ve Start: December 27, 2024 Manda Aguirre HIGH SCHOOL BIOLOGY TEACHER, HIGH SCHOOL BIOLOGY TEACHER-C Attending Provider Active Start: December 27, 2024 Manda Aguirre HIGH SCHOOL BIOLOGY TEACHER, HIGH SCHOOL BIOLOGY TEACHER-C Referring Provider Active Start: December 27, 2024 [...] 2024 End: December 27, 2024 Manda Aguirre HIGH SCHOOL BIOLOGY TEACHER, HIGH SCHOOL BIOLOGY TEACHER-C Attending Provider Active Start: December 27, 2024 End: December 27, 2024 Team Status: Inactive Member Role/Relationship Status Dates Dr. Beatriz Escobar MD Primary Care Provider Acti ve Start: December 27, 2024 End: December 27, 2024 Manda Aguirre [employer], [employer] Attending Provider Active Start: December 27, 2024 End: December 27, 2024 Manda Aguirre [employer], [employer] Referring Provider Active Start: December 27, 2024 [...] End: January 10, 2025 Manda Aguirre NP, [employer] Attending Provider Active Start: January 10, 2025 [...] 2025 End: March 22, 2025 Manda Aguirre [employer], [employer] Attending Provider Active Start: March 22, 2025 [...] 2024 End: December 27, 2024 Manda Aguirre [employer], [employer] Attending physician Active Start: December 27, 2024 End: December 27, 2024 Team Status: Inactive Member Role/Relationship Status Dates Dr. Beatriz Escobar MD Primary care physician Act rhys Start: December 27, 2024 End: December 27, 2024 Manda Aguirre [employer], [employer] Attending physician Active Start: December 27, 2024 End: December 27, 2024 Manda Aguirre [employer], [employer] Referring Provider Active Start: December 27, 2024 [...] 2025 End: January 10, 2025 Manda Aguirre [employer], [employer] Attending physician Active Start: January 10, 2025 [...] 2025 End: March 22, 2025 Manda Aguirre [employer], [employer] Attending physician Active Start: March 22, 2025 [...] 10, 2025 End: January 10, 2025 Manda Agiurre [employer], [employer] Attending physician Active Start: January 10, 2025 End: January 10, 2025 Team Status: Inactive Member Role/Relationship Status Dates Dr. Betariz Escobar MD Primary care physician Act rhys [...] 2025 End: March 22, 2025 Manda Aguirre [employer], [employer] Attending physician Active Start: March 22, 2025 [...] rhys Start: April 26, 2025 Manda Aguirre [employer], [employer] Attending physician Active Start: April 26, 2025 Manda Aguirre [employer], [employer] Referring Provider Active Start: April 26, 2025 [...] BE BASED ON THE PRIMARY CLINICAL RECORDS. [email or web address] provides no warranty or guarantee of the accuracy or completeness of information in this document.
[2025-06-12 12:49] VITALS: RESP 20; TEMP 36.3
[2025-06-12 12:50] VITALS: PULSE 74; O2SAT 98
[2025-06-12 12:54] VITALS: BP 128/74; PULSE 71
--- NOTE | 2025-06-12 13:12 | EKG12_ITS ---
Test Reason : SOB/ANXIETY Blood Pressure : */* mmHG Vent. Rate : 66 BPM Atrial Rate : 66 BPM P-R Int : 134 ms QRS Dur : 74 ms QT Int : 370 ms P-R-T Axes : 34 16 6 degrees QTcB Int : 387 ms Normal sinus rhythm Normal ECG Confirmed by Dedrick Sow ([id number]), editor map KASSI SIM ([id number]) on 06/14/2025 8:39:57 AM Referred By: Confirmed By: Dedrick Sow
--- NOTE | 2025-06-12 13:55 | OB.TRI.PN ---
Progress Notes Progress Note: Shanna Collins is a 35-year-old, , at 36w6d who presented to OB triage with shortness of breath and RUQ pain. She has a history of preeclampsia with her prior pregnancies and is currently taking daily bASA. Earlier this week she did have diarrhea and some strong contractions which have improved. She reports increased frequency of shortness of breath and lightheadedness. RUQ pain will wake her up at night and she is also having some nausea. She tries not to take medication unless necessary. Good movement. Occasional contractions that are not too painful. She had PIH labwork done on Friday which did not show any evidence of [id number]. We reviewed the labwork and her blood pressures throughout this , at this time low concern for preeclampsia. The plan was to have this labwork repeated on Friday. Laboratory Studies: 06/10/25 Hgb 13.7 Plt 215 Cr 0.66 AST 21 ALT 13 UPC 0.177 Vital Signs Temperature 97.4 F L 06/12/25 12:49 Temperature Source Temporal 06/12/25 12:49 Pulse Rate 71 06/12/25 12:54 Respiratory Rate 20 H 06/12/25 12:49 Blood Pressure 128/74 H 06/12/25 12:54 BP Systolic 128 06/12/25 12:54 BP Diastolic 74 06/12/25 12:54 Pulse Ox 98 06/12/25 12:50 EKG Normal sinus rhythm Physical Exam Physical Exam General Appearance: WD/WN and no apparent distress Cardiovascular/Respiratory: regular rate, rhythm Gastrointestinal/Abdominal: non tender and soft NST FHR Rate Baby A Baseline: 140 Variability:: Moderate Accelerations:: 15 x 15 Decelerations:: None NST Reactive:: Yes FHR Category:: Category I
== END 2025-06-12 14:09 | disposition home or self-care (01) ==
LOC: WPOUT 12:34 → WP 12:35
PROVIDERS: PCP Family Medicine; Visit Provider Student in an Organized Health Care Education/Training Program
DX: O26.893 Other specified pregnancy related conditions, third trimester (principal); R10.11 Right upper quadrant pain; R06.02 Shortness of breath; Z3A.36 36 weeks gestation of pregnancy
CPT/HCPCS: 59025; 59050; 93005; 99221; G0378

== ENCOUNTER → 2025-06-14 | Outpatient (CLI) | payer BC, SELFPAY ==
[2025-06-14 11:44] LABS: Hematocrit 41.0 % (37-47); Hemoglobin 13.6 g/dL (12.0-15.0); Immature Granulocytes Count 0.060 X10^3/uL (0.0-0.0); Mean Corp Hgb Conc 33.2 g/dL (32-36); Mean Corpuscular Volume 89.5 fL (81-99); Mean Platelet Vol. 10.4 fl (6.2-12.0); NRBC Flagged by Analyzer 0 % (0-5); Platelet Count 208 K/mm3 (150-450); RBC Distribution Width CV 12.9 % (11.6-14.6); RBC Distribution Width SD 41.5 fl (35.1-43.9); Red Blood Count 4.58 M/mm3 (4.2-5.4); White Blood Count 7.9 K/mm3 (4.4-11.0)
[2025-06-14 12:07] LABS: AST(SGOT) 20 U/L (<=31); Alanine Aminotransfer ALT/SGPT 11 U/L (<=34); Albumin, Serum 3.5 g/dL (3.5-5.0); Alkaline Phosphatase 112 U/L (35-104); Anion Gap 12 (5-15); BUN 8 mg/dL (4-19); BUN/Creat Ratio 13.0 RATIO (10-20); Calcium,Total 9.4 mg/dL (7.6-11.0); Carbon Dioxide 19.2 mmol/L (21.0-32.0); Chloride 105 mmol/L (98-108); Globulin 3.0 g/dL (2.2-4.2); Glucose 117 mg/dL (70-99); Potassium 4.1 mmol/L (3.3-5.1)
[2025-06-14 12:08] LABS: Creatinine, Urine (random) 228.00 mg/dL (28.00-217.00); Protein, Urine (Random) 48.6 mg/dL (0.0-12.0); Protein:Creat Ratio 213 mg/g CRE (0-200)
== END | disposition home or self-care (01) ==
PROVIDERS: PCP Family Medicine; Visit Provider Student in an Organized Health Care Education/Training Program
DX: O12.10 Gestational proteinuria, unspecified trimester (principal); Z3A.00 Weeks of gestation of pregnancy not specified
CPT/HCPCS: 36415; 80053; 82570; 84156; 85025

== ENCOUNTER → 2025-06-21 | Outpatient (CLI) | payer BC, SELFPAY ==
[2025-06-21 12:27] LABS: Hematocrit 40.7 % (37-47); Hemoglobin 13.8 g/dL (12.0-15.0); Immature Granulocytes Count 0.050 X10^3/uL (0.0-0.0); Mean Corp Hgb Conc 33.9 g/dL (32-36); Mean Corpuscular Volume 90.2 fL (81-99); Mean Platelet Vol. 10.7 fl (6.2-12.0); NRBC Flagged by Analyzer 0 % (0-5); Platelet Count 201 K/mm3 (150-450); RBC Distribution Width CV 13.1 % (11.6-14.6); RBC Distribution Width SD 42.5 fl (35.1-43.9); Red Blood Count 4.51 M/mm3 (4.2-5.4); White Blood Count 8.4 K/mm3 (4.4-11.0)
[2025-06-21 12:51] LABS: AST(SGOT) 28 U/L (<=31); Alanine Aminotransfer ALT/SGPT 14 U/L (<=34); Albumin, Serum 3.5 g/dL (3.5-5.0); Alkaline Phosphatase 120 U/L (35-104); Anion Gap 12 (5-15); BUN 9 mg/dL (4-19); BUN/Creat Ratio 13.4 RATIO (10-20); Calcium,Total 9.4 mg/dL (7.6-11.0); Carbon Dioxide 19.7 mmol/L (21.0-32.0); Chloride 104 mmol/L (98-108); Globulin 3.0 g/dL (2.2-4.2); Glucose 97 mg/dL (70-99); Potassium 4.2 mmol/L (3.3-5.1)
[2025-06-21 12:54] LABS: Creatinine, Urine (random) 274.00 mg/dL (28.00-217.00); Protein, Urine (Random) 56.1 mg/dL (0.0-12.0); Protein:Creat Ratio 205 mg/g CRE (0-200)
== END | disposition home or self-care (01) ==
LOC: LAB 12:07
PROVIDERS: PCP Family Medicine; Referring Provider Advanced Practice Midwife; Visit Provider Advanced Practice Midwife
DX: O09.92 Supervision of high risk pregnancy, unspecified, second trimester (principal); Z3A.00 Weeks of gestation of pregnancy not specified
CPT/HCPCS: 36415; 80053; 82570; 84156; 85025

== ENCOUNTER 2025-06-27 01:40 | Inpatient (IN) | payer BC, SELFPAY ==
[2025-06-26 21:52] VITALS: PULSE 65; O2SAT 98
[2025-06-26 21:57] VITALS: BP 140/84; PULSE 67
--- OUTSIDE RECORDS SUMMARY | 2025-06-26 21:57 | XMS RPT_ITS | CCD ---
Author Organization [facility] Care Team Providers Care Java Core Developer Name Role Phone SHAWN JOHNSON, DR HENDERSON [...] [phone] Dr. Beatriz Escobar MD Referring Provider [phone] Dr. Beatriz Escobar MD Primary Care Provider Dr. Beatriz Escobar MD Referring Provider [phone] Lyssa Aguila CNM Attending Provider [phone] [...] AGUIRRE Referring Unavailable Shawn JOHNSON, Dr. Henderson [facility] Physicia n Shawn JOHNSON, Dr. Henderson Referring Provider Carla VICE PRESIDENT FOR PHILANTHROPY-CManda Attending Physician [phone] King ALEX, Dr. Barrios Attending Physician Atilio JOHNSON, Dr. Griffin Attending Physician Mingo VIRK, Lyssa Attending Physician [phone] Lyssa Aguila CNM Referring Provider [phone] Tucker JOHNSON, Dr. Thomas Attending Physician Unavailkavitha Ceballos MD, Dr. Thomas Referring Provider Unavailab jeramie Ceballos MD, Dr. Thomas Nurse Practitioner Unavailab jeramie Escobar MD, Dr. Henderson [facility] Physicia n Shawn JOHNSON, Dr. Henderson Referring Provider Carla VICE PRESIDENT FOR PHILANTHROPY-CManda Attending Physician [phone] King ALEX, Dr. Barrios Attending Physician Dr. Carmelita Weeks DO Attending Physician Carla VICE PRESIDENT FOR PHILANTHROPY-CManda Referring Provider [phone] Beatriz Escobar Primary Care [...] Unavailabl e Carmelita Weeks Attending Unavailabl e [place], [place] Primary Care Unavailable [facility] Primary Care Unavailable Vande Velde, Carmelita Attending Unavailabl e Vande Velde, Carmelita Referring Unavailabl e Vande Velde, Carmelita Attending Unavailabl e [place], [place] Primary Care Unavailable [facility], [place] Primary Care Unavailable [place], [facility] Referring Unavailable Vande Raeann, Carmelita Attending Unavailabl e [place], [place] Primary Care Unavailable William Ceballos Referring Unavailable William Ceballos Attending Unavailable William Ceballos Consulting Unavailable [place], [facility] Referring Unavailable Lyssa Aguila Attending Unavailable [facility] Primary Care Unavailable [facility], [place] Primary Care Unavailable [place], [place] Referring Unavailable CarlaManda montenegro Attending Unavailable [facility] Primary Care Unavailable [facility], [place] Referring Unavailable Denis Galdamez Attending Unavailable Manda Aguirre Attending Unavailable [facility], [place] Primary Care Unavailable [facility], [place] Referring Unavailable [facility], [place] Primary Care Unavailable [facility], [place] Referring Unavailable Gaby Trimble Attending Unavailable Vande Velde, Carmelita Attending Unavailabl e [place], [place] Primary Care Unavailable [facility], [facility] Referring Unavailable [facility], [place] Primary Care Unavailable Lyssa Aguila Referring Unavailable Lyssa Aguila Attending Unavailable [facility] Primary Care Unavailable Lyssa Aguila Referring Unavailable Lyssa Aguila Attending Unavailable ClarionManda Referring Unavailable Manda Aguirre Attending Unavailable [facility], [place] Primary Care Unavailable [place], [place] Primary Care Unavailable Manda Aguirre Referring Unavailable Manda Aguirre Attending Unavailable Denis Gadlamez Attending Unavailable [facility] Primary Care Unavailable Denis Galdamez Referring Unavailable [facility] Primary Care Unavailable William Ceballos Referring Unavailable William Ceballos Attending Unavailable [facility] Primary Care Unavailable [facility], [place] Referring Unavailable Lyssa Aguila Attending Unavailable Allergies Allergy Classification Reported Allergen(s) Allergy Type Date of Onset Reaction(s) Facility (17 sources) Penicillins Allergy to substance 09-19-2021 Unknown [facility] Comment on above: as a (1 source) Penicillin; Translations: [penicillins] Drug Allergy [facility] (1 source) Penicillins Drug allergy (disorder) 05-16-2025 [facility] Repository Medications Current Medications Medication Drug [...] Ordered Start: 05-10-2022 take 1 tablet by [facility] once daily Multivitamin Active 1 TABLET PO DAILY May 10, 2022 12:00am Mv-Mins 77-Muer-Gehov No.1-D garvey (Pnv-Needmore) 28-1-300 mg capsule (13 sources) Start: 11-12-2024 Mv-Mins 71-Iro n-Folic No.1-Dha (Pnv-[place]) 28-1-300 mg capsule Active 1 NMA PO DAILY November 12, 2024 12:00am Complies with drug therapy Start: 11-12-2024 Mv-Mins 71-Iro n-Folic No.1-Dha (Pnv-[place]) 28-1-300 mg capsule Active NMA PO November 12, 2024 12:00am [place] (Nk) (2 sources) Start: 09-19-2021 [place] (Nk) A ctive September 19, 2021 12:00am [...] 1 tablet by mouth once daily Prenat.Vits,Marcel,Mi b-Acsv-Dcnhh Discontinued 1 TABLET PO DAILY January 11, 2021 12:00am August 16, 2021 2:41pm Prenat.Vits,Marcel,Min -Iron-Folic tablet (13 sources) Start: 01-11-2021 End: 08-16-2021 Prenat.Vits,Marcel,Mi p-Sxqv-Sisct tablet Discontinued 1 {tbl} PO DAILY January 11, 2021 12:00am August 16, 2021 2:41pm Start: 01-11-2021 End: 08-16-2021 Prenat.Vits,Marcel,Ykl-Aylu-Qzk ic tablet Discontinued 1 {tbl} PO DAILY [...] (HPV)] 01-11-2021 Episodic Comment on above: 04/2020 [facility], record scanned Residual codes; unclassified (20 sources) Past history of procedure; Translations: [Other specified postprocedural states] 01-11-2021 Episodic Comment on above: [facility] pap 04/2020 pos HPV, neg pap. Neg colp wo bx per RR at [facility] 05/2020 Residual codes; unclassified (1 source) [...] Test Name Value Interpretation Reference Range Facility Inbound Telemarketer Office Visit Reporton 05-16-2025 Inbound Telemarketer Office Visit Report [facility]'s [address], [address] [place] [address] OFFICE VISIT Date of Service: 05/16/25 MR#: [id number] Acct: [id number] Name: DEMARCUS ABAD Rep #: [id number] : 1990 Provider: Dr. Carmelita Rossi DO Age/Sex: 35/F Location: [facility] Status: Signed Intake Vital Signs 03/22/25 10:36 04/28/25 10:42 05/16/25 10:09 Height 5 ft 2 in 5 ft 2 in 5 ft 2 in Weight: 190 lb 4 oz BMI 34.7 BP 119/80 Intake Visit Reasons: 32 WK OB Heating Element Builder Required: No Is patient in pain?: No Allergies Penicillins Allergy (Unknown, Verified 05/16/25 10:10) Unknown Medications ???Medication ???Instructions ???Recorded ???Confirmed ???Type multivit-min no.71-iron fum 28 1 cap PO DAILY 11/12/24 05/16/25 H istory mg-folate no.1 1 mg-dha 300 mg capsule (PNV-Needmore) methimazole 5 mg tablet 2.5 mg (1/2 [...] History of bunionectomy of right great toe [place] teeth extracted History of colposcopy Family History Mother Hypertension Father Diabetes Aunt Thyroid disorder Maternal- unknown type Social History adopted: No household members: spouse and children housing: house number of children: 2 current occupational status: unemployed current occupation: [employer] pets and animals: Yes (no litter [...] physical activity do you participate in: none [place]/jew: Gnosticism seatbelt use: always do you feel safe at home: Yes 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 Date Name GA/Weeks Outcome Route Bth Weight Gen Labor Lgth Anesthesia Del Locatn Provider FOB Unknown 08/2024 6 spontaneous 04/30/08 Shlomo 36 live - 6# Male epidural [facility] Taye 08/08/21 Emalie 36 live - 6lbs 14oz Female epidural [facility] Va nde Velde Delivery Date: 04/30/08 Last Updated by: Manda Aguirre VICE PRESIDENT FOR PHILANTHROPY, VICE PRESIDENT FOR PHILANTHROPY-C Induced to preeclampsia, teen Delivery Date: 08/08/21 [...] 115/73 Negative (more content not included)... Normal [facility] Gestational GTT 3HR 100gon 1 07-09-2024 GEST GTT 100gm Normal [facility] Comment on above: Order Comment: Y [...] By: #### L 501.0900, M100.2200, L7000.1800 #### [facility] [address] [place], [address] Laboratory - Chemistry and C hemistry - challengeOrdered By: Carmelita Cary on 04-28-2025 Glucose Ql (U) Negative [facility] - UrinalysisOrder ed By: Carmelita Cary on 04-28-2025 Protein Ql (U) Negative [facility] Inbound Telemarketer Office Visit Reporton 04-28-2025 Inbound Telemarketer Office Visit Report [facility] [address], [address] [place] [address] OFFICE VISIT Date of Service: 04/28/25 MR#: [id number] Acct: [id number] Name: DEMARCUS ABAD Rep #: [id number] : 1990 Provider: Dr. Carmelita Rossi DO Age/Sex: 35/F Location: [facility] Status: Signed Intake Vital Signs 04/18/25 10:59 04/28/25 10:42 04/28/25 10:42 Height 5 ft 2 in 5 ft 2 in 5 ft 2 in Weight: 187 lb BMI 34.2 BP 114/71 Intake Visit Reasons: Discuss 3hr glucose *do not shorten Heating Element Builder Required: No Is patient in pain?: No Allergies Penicillins Allergy (Unknown, Verified 04/28/25 10:41) Unknown Medications ???Medication ???Instructions ???Recorded ???Confirmed ???Type multivit-min no.71-iron fum 28 1 cap PO DAILY 11/12/24 04/28/25 H istory mg-folate no.1 1 mg-dha 300 mg capsule (PNV-Needmore) methimazole 5 mg tablet 2.5 mg (1/2 [...] History of bunionectomy of right great toe [place] teeth extracted History of colposcopy Family History Mother Hypertension Father Diabetes Aunt Thyroid disorder Maternal- unknown type Social History adopted: No household members: spouse and children housing: house number of children: 2 current occupational status: unemployed current occupation: [employer] pets and animals: Yes (no litter [...] physical activity do you participate in: none [place]/jew: Gnosticism seatbelt use: always do you feel safe [...] Shlomo 36 live - 6# Male epidural [facility] Taye 08/08/21 Emalie 36 live - 6lbs 14oz Female epidural [facility] Va nde Velde Delivery Date: 04/30/08 Last Updated by: Manda Aguirre VICE PRESIDENT FOR PHILANTHROPY, VICE PRESIDENT FOR PHILANTHROPY-C Induced to preeclampsia, teen Delivery Date: 08/08/21 [...] -???-???-???-???-??? -???-? (more content not included)... Normal [facility] Gestational GTT 3HR 100gon 1 GEST GTT 100gm Normal [facility] Comment on above: Order Comment: Y [...] By: #### L 501.0900, M100.2200, L7000.1800 #### [facility] [address] [place], [address] Quantitative serum or plasma 3 hour gestational glucose tolerance panelOrdered By: Manda Aguirre on 04-26-2025 Glucose tolerance 3 hours gestational panel See comment [facility] Comment on above: FASTING 89 Col: 04/07 07/31 1004GLUCOSE TOLERANCE TEST FOR Reference Interval GESTATIONAL DIABETES Fasting <105 mg/dL 1 hour <190 mg/dl 2 hour <165 mg/dl 3 hour <145 mg/dl Absolute lymphocyte countOrd ered By: Manda Aguirre on 04-18-2025 Lymphocytes Auto (Unsp spec) [#/Vol] 1.46 10*3/uL 0.83-4.51 [facility] Absolute neutrophil countOrd ered By: Manda Aguirre on 04-18-2025 Neutrophils (Bld) [#/Vol] 6.5 10*3/uL 2.0-7.7 [facility] Automated lymphocyte count a s percentage of total leukocytesOrdered By: Manda Aguirre on 04-18-2025 Lymphocytes/100 WBC Auto (Unsp spec) 16.9 % Low 19-41 [facility] Basophil percentageOrdered B y: Manda Aguirre on 04-18-2025 Basophils/100 WBC (Bld) 0.2 % 0-1 [facility] CBC W/Diff, Automatedon 04-06 Absolute Lymph 1.46 X10 3/uL Normal 0.83-4.51 [facility] Comment on above: Performed By: #### L 501.0900, M100.2200, L7000.1800 #### [facility] [address] [place], [address] Absolute Neut 6.5 X10 3/uL Normal 2.0-7.7 [facility] Comment on above: Performed By: #### L 501.0900, M100.2200, L7000.1800 #### [facility] [address] [facility] [place], [address] Basophils/100 WBC (Bld) 0.2 % Normal 0-1 [facility] Comment on above: Performed By: #### L 501.0900, M100.2200, L7000.1800 #### [facility] [address] [place], [address] Eosinophils/100 WBC (Bld) 0.5 % Normal 0-5 [facility] Comment on above: Performed By: #### L 501.0900, M100.2200, L7000.1800 #### [facility] [address] [place], [address] Erythrocyte distribution width (RBC) [Ratio] 12.5 % Normal 11.6-14.6 [facility] Comment on above: Performed By: #### L 501.0900, M100.2200, L7000.1800 #### [facility] [address] [place], [address] Hematocrit (Bld) [Volume fraction] 36.6 % Low 37-47 [facility] Comment on above: Performed By: #### L 501.0900, M100.2200, L7000.1800 #### [facility] [address] [place], [address] Hemoglobin (Bld) [Mass/Vol] 12.5 g/dL Normal 12.0-15.0 [facility] Comment on above: Performed By: #### L 501.0900, M100.2200, L7000.1800 #### [facility] [address] [place], [address] IG% 0.700 Normal 0.0-0.9 [facility] Comment on above: Result Comment: IG% - Immature Granulocytes (promyelocytes, myelocytes and metamyelocytes) > 1% indicates that a LEFT SHIFT is Present. Performed By: #### L 501.0900, M100.2200, L7000.1800 #### [facility] [address] [place], [address] Lymphocytes/100 WBC (Bld) 16.9 % Low 19-41 [facility] Comment on above: Performed By: #### L 501.0900, M100.2200, L7000.1800 #### [facility] [address] [place], [address] MCH (RBC) [Entitic mass] 30.6 pg Normal 27.0-32.0 [facility] Comment on above: Performed By: #### L 501.0900, M100.2200, L7000.1800 #### [facility] [address] [place], [address] MCHC (RBC) [Mass/Vol] 34.2 g/dL Normal 32-36 [facility] Comment on above: Performed By: #### L 501.0900, M100.2200, L7000.1800 #### [facility] [address] [place], [address] MCV (RBC) [Entitic vol] 89.5 fL Normal 81-99 [facility] Comment on above: Performed By: #### L 501.0900, M100.2200, L7000.1800 #### [facility] [address] [place], [address] Monocytes/100 WBC (Bld) 6.6 % Normal 0-10 [facility] Comment on above: Performed By: #### L 501.0900, M100.2200, L7000.1800 #### [facility] [address] [place], [address] Neutrophils/100 WBC (Bld) 75.1 % High 47-70 [facility] Comment on above: Performed By: #### L 501.0900, M100.2200, L7000.1800 #### [facility] [address] [place], [address] Nucleated RBC (Bld) [#/Vol] 0 10*3/uL Normal 0-5 [facility] Comment on above: Performed By: #### L 501.0900, M100.2200, L7000.1800 #### [facility] [address] [place], [address] Platelet mean volume (Bld) [Entitic vol] 10.0 fL Normal 6.2-12.0 [facility] Comment on above: Performed By: #### L 501.0900, M100.2200, L7000.1800 #### [facility] [address] [place], [address] Platelets (Bld) [#/Vol] 228 10*3/uL Normal 150-450 [facility] Comment on above: Performed By: #### L 501.0900, M100.2200, L7000.1800 #### [facility] [address] [place], [address] RBC (Bld) [#/Vol] 4.09 10*6/uL Low 4.2-5.4 [facility] Comment on above: Performed By: #### L 501.0900, M100.2200, L7000.1800 #### [facility] [address] [place], [address] RDW SD 41.0 fl Normal 35.1-43.9 [facility] Comment on above: Performed By: #### L 501.0900, M100.2200, L7000.1800 #### [facility] [address] [place], [address] WBC (Bld) [#/Vol] 8.6 10*3/uL Normal 4.4-11.0 [facility] Comment on above: Performed By: #### L 501.0900, M100.2200, L7000.1800 #### [facility] [address] [place], [address] Eosinophil percentageOrdered By: Manda Aguirre on 04-18-2025 Eosinophils/100 WBC (Bld) 0.5 % 0-5 [facility] Erythrocyte distribution wid th ratioOrdered By: Manda Aguirre on 04-18-2025 Erythrocyte distribution width (RBC) [Ratio] 12.5 % 11.6-14.6 [facility] Erythrocyte distribution wid th standard deviationOrdered By: Manda Aguirre on 04-18-2025 Erythrocyte distribution width (RBC) [Ratio] 41.0 fl 35.1-43.9 [facility] Free L9Zlhgepy By: Denis Galdamez on 04-18-2025 Free T3 [Mass/Vol] 2.8 pg/mL 2.18-3.98 [facility] Free T3on 04-18-2025 Free T3 [Mass/Vol] 2.8 pg/mL Normal 2.18-3.98 [facility] Comment on above: Performed By: #### L 501.0900, M100.2200, L7000.1800 #### [facility] [address] [facility] [place], [place], [address] Glucose Challenge Gest 1H 50 tatyana 04-18-2025 GLU GEST 50g 1H 136 mg/dL Normal 70-140 [facility] Comment on above: Result Comment: AMENDED REPORT 04/18/25 1330 GLU GEST 50g 1H previously reported as: 136 mg/dL Performed By: #### L 501.0900, M100.2200, L7000.1800 #### [facility] [address] [place], [place], [address] Glucose measurement at 2 meir rs post-dose gestational glucose tolerance testOrdered By: Manda Aguirre on 04-18-2025 Glucose [Mass/Vol] 142 mg/dL High 70-140 [facility] Comment on above: Previous reported re sult: 136 mg/dLEdited by: ALEXANDER on 04/18/25:1330 AMENDED REPORT 04/18/25 1330 GLU GEST 50g 1H previously reported as: 136 mg/dL HIVon 04-18-2025 HIV Non-Reactive Normal Nonreactive [facility] Comment on above: Result Comment: Non- Reactive Reactive Repeatedly reactive samples must be confirmed according to CDC recommended confirmatory algorithms. The subresults for either HIVAG or AHIV can be used as an aid in the selection of the confirmation algorithm for reactive samples. Send out specimens with Reactive results to [facility] for confirmation. Order the HIV antibody detection and differentiation: lc#[id number] Performed By: #### L 501.0900, M100.2200, L7000.1800 #### [facility] [address] [place], [address] Hematocrit Auto (Bld) [Volum e fraction]Ordered By: Manda Aguirre on 04-18-2025 Hematocrit (Bld) [Volume fraction] 36.6 % Low 37-47 [facility] Hemoglobin measurementOrdere d By: Manda Aguirre on 04-18-2025 Hemoglobin (Bld) [Mass/Vol] 12.5 g/dL 12.0-15.0 [facility] Immature granulocytes/100 WB C Auto (Bld)Ordered By: Manda Aguirre on 04-18-2025 Immature granulocytes/100 WBC (Bld) 0.700 % 0.0-0.9 [facility] Comment on above: IG% - Immature Granu locytes (promyelocytes, myelocytes and metamyelocytes) > 1% indicates that a LEFT SHIFT is Present. Laboratory - Chemistry and C hemistry - challengeOrdered By: Carmelita Cary on 04-18-2025 Glucose Ql (U) Negative [facility] - UrinalysisOrder ed By: Carmelita Cary on 04-18-2025 Protein Ql (U) Negative [facility] MCV (mean corpuscular volume ) determinationOrdered By: Manda Aguirre on 04-18-2025 MCV (RBC) [Entitic vol] 89.5 fL 81-99 [facility] Mean corpuscular hemoglobin (MCH) determinationOrdered By: Manda Aguirre on 04-18-2025 MCH (RBC) [Entitic mass] 30.6 pg 27.0-32.0 [facility] Mean corpuscular hemoglobin concentration (MCHC) determinationOrdered By: Manda Aguirre on 04-18-2025 MCHC (RBC) [Mass/Vol] 34.2 g/dL 32-36 [facility] Mean platelet volume determi nationOrdered By: Manda Aguirre on 04-18-2025 Platelet mean volume (Bld) [Entitic vol] 10.0 fL 6.2-12.0 [facility] Monocyte percentageOrdered B y: Manda Aguirre on 04-18-2025 Monocytes/100 WBC (Bld) 6.6 % 0-10 [facility] Neutrophil percentageOrdered By: Manda Aguirre on 04-18-2025 Neutrophils/100 WBC (Bld) 75.1 % High 47-70 [facility] No Panel InformationOrdered By: Manda Aguirre on 04-18-2025 HIV (1&2) Antibody Non-Reactive Nonreactive [facility] Comment on above: Non-ReactiveReactive Repeatedly reactive samples must be confirmed according to CDC recommended confirmatory algorithms. The subresults for either HIVAG or AHIV can be used as an aid in the selection of the confirmation algorithm for reactive samples.Send out specimens with Reactive results to [facility] for confirmation.Order the HIV antibody detection and differentiation: #[id number] Nucleated red blood cell per centageOrdered By: Manda Aguirre on 04-18-2025 Nucleated RBC/100 WBC (Bld) [Ratio] 0 % 0-5 [facility] Inbound Telemarketer Office Visit Reporton 04-18-2025 Inbound Telemarketer Office Visit Report [facility]'s [address], [address] [place] [address] OFFICE VISIT Date of Service: 04/18/25 MR#: [id number] Acct: [id number] Name: DEMARCUS ABAD Rep #: [id number] : 1990 Provider: Dr. Carmelita Rossi DO Age/Sex: 35/F Location: [facility] Status: Signed Intake Vital Signs 01/25/25 13:59 04/02/25 18:35 04/18/25 10:56 04/18/25 10:59 Height 5 ft 2 in 5 ft 2 in 5 ft 2 in 5 ft 2 in Weight: 183 lb 9 oz BMI 33.5 BP 106/71 Intake Visit Reasons: 28wk ob/glucose Heating Element Builder Required: No Is patient in pain?: No Allergies Penicillins Allergy (Unknown, Verified 04/18/25 10:56) Unknown Medications ???Medication ???Instructions ???Recorded ???Confirmed ???Type multivit-min no.71-iron fum 28 1 cap PO DAILY 11/12/24 04/18/25 H istory mg-folate no.1 1 mg-dha 300 mg capsule (PNV-Needmore) methimazole 5 mg tablet 2.5 mg (1/2 [...] History of bunionectomy of right great toe [place] teeth extracted History of colposcopy Family History Mother Hypertension Father Diabetes Aunt Thyroid disorder Maternal- unknown type Social History adopted: No household members: spouse and children housing: house number of children: 2 current occupational status: unemployed current occupation: [employer] pets and animals: Yes (no litter [...] physical activity do you participate in: none [place]/jew: Gnosticism seatbelt use: always do you feel safe at home: Yes additional social history: [employer] History 4 Elective abortions Hx Para 2 Spontaneous abortions 1 Hx # Term Pregnancies Ectopic pregnancies Hx # Pregnancies 2 Multiple births # of living children 2 Past Pregnancies Del. Date Name GA/Weeks Outcome Route Bth Weight Infant Gen Labor Lgth Anesthesia Del Locatn Provider FOB Unknown 08/2024 6 spontaneous 04/30/08 Shlomo 36 live - 6# Male epidural [facility] Taye 08/08/21 Emalie 36 live - 6lbs 14oz Female epidural [facility] Va nde Velde Delivery Date: 04/30/08 Last Updated by: Manda Aguirre VICE PRESIDENT FOR PHILANTHROPY, VICE PRESIDENT FOR PHILANTHROPY-C Induced to preeclampsia, teen Delivery Date: 08/08/21 [...] -???-???- 13 (more content not included)... Normal [facility] Platelet countOrdered By: Kenneth Aguirre on 04-18-2025 Platelets (Bld) [#/Vol] 228 10*3/uL 150-450 [facility] RBC Auto (Bld) [#/Vol]Ordere d By: Manda Aguirre on 04-18-2025 RBC (Bld) [#/Vol] 4.09 10*6/uL Low 4.2-5.4 [facility] Syphilis Antibodieson 2024 Syphilis Abs Non-Reactive Normal Nonreactive [facility] Comment on above: Performed By: #### L 501.0900, M100.2200, L7000.1800 #### [facility] [address] [place], [place], [id number] T4 Free Directon 04-18-2025 T4 FREE DIRECT 0.70 ng/dL Low 0.76-1.46 [facility] Comment on above: Performed By: #### L 501.0900, M100.2200, L7000.1800 #### [facility] [address] [place], [address] T4 freeOrdered By: Denis Galdamez on 04-18-2025 Free T4 [Mass/Vol] 0.70 ng/dL Low 0.76-1.46 [facility] TSH DL <= 0.005 mIU/L QnOrde red By: Denis Galdamez on 04-18-2025 TSH Qn 0.426 uIU/mL 0.300-4.200 [facility] Thyroid Stim Hormone (TSH)on 04-18-2025 TSH 0.426 uIU/mL Normal 0.300-4.200 [facility] Comment on above: Performed By: #### L 501.0900, M100.2200, L7000.1800 #### [facility] [address] [place], [address] White blood cell (WBC) count Ordered By: Manda Aguirre on 04-18-2025 WBC (Bld) [#/Vol] 8.6 10*3/uL 4.4-11.0 [facility] OB Triage Physician Noteon 0 04-03-2025 OB Triage Physician Note [facility] Medical Records Department [address] [place] [address] OB Triage Physician Note 04/03/25 1535 MR#: [id number] Acct: [id number] Name: DEMARCUS ABAD Rep #: [id number] : 1990 35 From: William Ceballos MD PCP: Dr. Beatriz Escobar MD Status:[facility] Location: [facility] DEMARCUS ABAD, is a 35 F G4, [...] 1 mg-dha 300 mg 1 cap capsule (PNV-Needmore) methimazole 5 mg tablet 2.5 mg (1/2 x 5 mg) PO .every 01/0403/30/25 08:00 Rx other day #15 tabs 2.5 mg Allergy/AdvReac Type Severity Reaction Status Date / Time Penicillins Allergy Unknown Unknown Verified 04/02/25 18:30 Family History Mother Hypertension Father Diabetes Aunt Thyroid disorder Maternal- unknown type Surgical History History of bunionectomy of right great toe [place] teeth extracted History of colposcopy Social History adopted: No household members: spouse and children housing: house number of children: 2 current occupational status: unemployed current occupation: [employer] pets and animals: Yes (no litter [...] physical activity do you participate in: none [place]/jew: Gnosticism seatbelt use: always do you feel safe at home: Yes 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 Date Name GA/Weeks Outcome Route Bth Weight Gen Labor Lgth Anesthesia Del Locatn Provider FOB Unknown 08/2024 6 spontaneous 04/30/08 Shlomo 36 live - 6# Male epidural [facility] Taye 08/08/21 Emalie 36 live - 6lbs 14oz Female epidural [facility] [place] Delivery Date: 04/30/08 Last Updated by: Manda Aguirre VICE PRESIDENT FOR PHILANTHROPY, VICE PRESIDENT FOR PHILANTHROPY-C Induced to preeclampsia, teen Delivery Date: 08/08/21 [...] Note 11/24/24 (more content not included)... Normal [facility] - Chemistry and C hemistry - challengeOrdered By: Manda Aguirre on 03-22-2025 Glucose Ql (U) Negative [facility] - UrinalysisOrder ed By: Manda Aguirre on 03-22-2025 Protein Ql (U) Negative [facility] Inbound Telemarketer Office Visit Reporton 03-22-2025 Inbound Telemarketer Office Visit Report [facility] [address], [address] [place] [address] OFFICE VISIT Date of Service: 03/22/25 MR#: [id number] Acct: [id number] Name: DEMARCUS ABAD Rep #: [id number] : 1990 Provider: LUCILA arriola Age/Sex: 35/F Location: [facility] Status: Signed Intake Vital Signs 01/25/25 13:59 02/21/25 11:01 03/22/25 10:32 03/22/25 10:36 Height 5 ft 2 in 5 ft 2 in 5 ft 2 in 5 ft 2 in Weight: 178 lb 1 oz BMI 32.5 BP 111/75 Intake Visit Reasons: 24wk ob Chief Complaint: 24 Week OB Heating Element Builder Required: No Is patient in pain?: No Allergies Penicillins Allergy (Unknown, Verified 03/22/25 10:35) Unknown Medications ???Medication ???Instructions ???Recorded ???Confirmed ???Type ferrous sulfate 325 mg (65 mg 325 mg PO DAILY 09/05/23 03/22/25 History iron) tablet (Feosol) multivit-min no.71-iron fum 28 cap PO 11/12/24 03/22/25 History mg-folate no.1 1 mg-dha 300 mg capsule (PNV-Needmore) methimazole 5 mg tablet 2.5 mg (1/2 [...] History of bunionectomy of right great toe [place] teeth extracted History of colposcopy Family History Mother Hypertension Father Diabetes Aunt Thyroid disorder Maternal- unknown type Social History adopted: No household members: spouse and children housing: house number of children: 2 current occupational status: unemployed current occupation: [employer] pets and animals: Yes (no litter [...] physical activity do you participate in: none [place]/jew: Gnosticism seatbelt use: always do you feel safe at home: Yes 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 Date Name GA/Weeks Outcome Route Bth Weight Gen Labor Lgth Anesthesia Del Locatn Provider FOB Unknown 08/2024 6 spontaneous 04/30/08 Shlomo 36 live - 6# Male epidural [facility] Taye 08/08/21 Emalie 36 live - 6lbs 14oz Female epidural [facility] [place] Delivery Date: 04/30/08 Last Updated by: Manda Aguirre VICE PRESIDENT FOR PHILANTHROPY, VICE PRESIDENT FOR PHILANTHROPY-C Induced to preeclampsia, teen Delivery Date: 08/08/21 [...] KW- CRL (more content not included)... Normal [facility] Absolute lymphocyte countOrd ered By: Lyssa Aguila on 02-21-2025 Lymphocytes Auto (Unsp spec) [#/Vol] 1.56 10*3/uL 0.83-4.51 [facility] Absolute neutrophil countOrd ered By: Lyssa Aguila on 02-21-2025 Neutrophils (Bld) [#/Vol] 7.8 10*3/uL High 2.0-7.7 [facility] Automated lymphocyte count a s percentage of total leukocytesOrdered By: Lyssa Aguila on 02-21-2025 Lymphocytes/100 WBC Auto (Unsp spec) 15.5 % Low 19-41 [facility] Basophil percentageOrdered B y: Lyssa Aguila on 02-21-2025 Basophils/100 WBC (Bld) 0.3 % 0-1 [facility] CBC W/Diff, Automatedon 02-04 Absolute Lymph 1.56 X10 3/uL Normal 0.83-4.51 [facility] Comment on above: Performed By: #### L 501.0900, M100.2200, L7000.1800 #### [facility] [address] [place], [address] Absolute Neut 7.8 X10 3/uL High 2.0-7.7 [facility] Comment on above: Performed By: #### L 501.0900, M100.2200, L7000.1800 #### [facility] [address] [place], [address] Basophils/100 WBC (Bld) 0.3 % Normal 0-1 [facility] Comment on above: Performed By: #### L 501.0900, M100.2200, L7000.1800 #### [facility] [address] [place], [address] Eosinophils/100 WBC (Bld) 0.7 % Normal 0-5 [facility] Comment on above: Performed By: #### L 501.0900, M100.2200, L7000.1800 #### [facility] [address] [place], [address] Erythrocyte distribution width (RBC) [Ratio] 13.0 % Normal 11.6-14.6 [facility] Comment on above: Performed By: #### L 501.0900, M100.2200, L7000.1800 #### [facility] [address] [place], [address] Hematocrit (Bld) [Volume fraction] 39.3 % Normal 37-47 [facility] Comment on above: Performed By: #### L 501.0900, M100.2200, L7000.1800 #### [facility] [address] [place], [address] Hemoglobin (Bld) [Mass/Vol] 13.4 g/dL Normal 12.0-15.0 [facility] Comment on above: Performed By: #### L 501.0900, M100.2200, L7000.1800 #### [facility] [address] [place], [address] IG% 0.500 Normal 0.0-0.9 [facility] Comment on above: Result Comment: IG% - Immature Granulocytes (promyelocytes, myelocytes and metamyelocytes) > 1% indicates that a LEFT SHIFT is Present. Performed By: #### L 501.0900, M100.2200, L7000.1800 #### [facility] [address] [place], [address] Lymphocytes/100 WBC (Bld) 15.5 % Low 19-41 [facility] Comment on above: Performed By: #### L 501.0900, M100.2200, L7000.1800 #### [facility] [address] [place], [address] MCH (RBC) [Entitic mass] 30.1 pg Normal 27.0-32.0 [facility] Comment on above: Performed By: #### L 501.0900, M100.2200, L7000.1800 #### [facility] [address] [place], [address] MCHC (RBC) [Mass/Vol] 34.1 g/dL Normal 32-36 [facility] Comment on above: Performed By: #### L 501.0900, M100.2200, L7000.1800 #### [facility] [address] [place], [address] MCV (RBC) [Entitic vol] 88.3 fL Normal 81-99 [facility] Comment on above: Performed By: #### L 501.0900, M100.2200, L7000.1800 #### [facility] [address] [place], [address] Monocytes/100 WBC (Bld) 5.7 % Normal 0-10 [facility] Comment on above: Performed By: #### L 501.0900, M100.2200, L7000.1800 #### [facility] [address] [place], [address] Neutrophils/100 WBC (Bld) 77.3 % High 47-70 [facility] Comment on above: Performed By: #### L 501.0900, M100.2200, L7000.1800 #### [facility] [address] [place], [address] Nucleated RBC (Bld) [#/Vol] 0 10*3/uL Normal 0-5 [facility] Comment on above: Performed By: #### L 501.0900, M100.2200, L7000.1800 #### [facility] [address] [place], [address] Platelet mean volume (Bld) [Entitic vol] 10.1 fL Normal 6.2-12.0 [facility] Comment on above: Performed By: #### L 501.0900, M100.2200, L7000.1800 #### [facility] [address] [place], [address] Platelets (Bld) [#/Vol] 238 10*3/uL Normal 150-450 [facility] Comment on above: Performed By: #### L 501.0900, M100.2200, L7000.1800 #### [facility] [address] [place], [address] RBC (Bld) [#/Vol] 4.45 10*6/uL Normal 4.2-5.4 [facility] Comment on above: Performed By: #### L 501.0900, M100.2200, L7000.1800 #### [facility] [address] [place], [address] RDW SD 41.8 fl Normal 35.1-43.9 [facility] Comment on above: Performed By: #### L 501.0900, M100.2200, L7000.1800 #### [facility] [address] [place], [address] WBC (Bld) [#/Vol] 10.1 10*3/uL Normal 4.4-11.0 [facility] Comment on above: Performed By: #### L 501.0900, M100.2200, L7000.1800 #### [facility] [address] [place], [address] Eosinophil percentageOrdered By: Lyssa Aguila on 02-21-2025 Eosinophils/100 WBC (Bld) 0.7 % 0-5 [facility] Erythrocyte distribution wid th ratioOrdered By: Lyssa Aguila on 02-21-2025 Erythrocyte distribution width (RBC) [Ratio] 13.0 % 11.6-14.6 [facility] Erythrocyte distribution wid th standard deviationOrdered By: Lyssa Aguila on 02-21-2025 Erythrocyte distribution width (RBC) [Ratio] 41.8 fl 35.1-43.9 [facility] Free T3on 02-21-2025 Free T3 [Mass/Vol] 2.8 pg/mL Normal 2.18-3.98 [facility] Comment on above: Performed By: #### L 501.0900, M100.2200, L7000.1800 #### [facility] [address] [place], [address] Free [id number] By: Denis Galdamez on 02-21-2025 Free T3 [Mass/Vol] 2.8 pg/mL 2.18-3.98 [facility] Hematocrit Auto (Bld) [Volum e fraction]Ordered By: Lyssa Aguila on 02-21-2025 Hematocrit (Bld) [Volume fraction] 39.3 % 37-47 [facility] Hemoglobin measurementOrdere d By: Lyssa Aguila on 02-21-2025 Hemoglobin (Bld) [Mass/Vol] 13.4 g/dL 12.0-15.0 [facility] Immature granulocytes/100 WB C Auto (Bld)Ordered By: Lyssa Aguila on 02-21-2025 Immature granulocytes/100 WBC (Bld) 0.500 % 0.0-0.9 [facility] Comment on above: IG% - Immature Granu locytes (promyelocytes, myelocytes and metamyelocytes) > 1% indicates that a LEFT SHIFT is Present. Laboratory - Chemistry and C hemistry - challengeOrdered By: Lyssa Aguila on 02-21-2025 Glucose Ql (U) Negative [facility] - UrinalysisOrder ed By: Lyssa Aguila on 02-21-2025 Protein Ql (U) Negative [facility] MCV (mean corpuscular volume ) determinationOrdered By: Lyssa Aguila on 02-21-2025 MCV (RBC) [Entitic vol] 88.3 fL 81-99 [facility] Mean corpuscular hemoglobin (MCH) determinationOrdered By: Lyssa Aguila on 02-21-2025 MCH (RBC) [Entitic mass] 30.1 pg 27.0-32.0 [facility] Mean corpuscular hemoglobin concentration (MCHC) determinationOrdered By: Lyssa Aguila on 02-21-2025 MCHC (RBC) [Mass/Vol] 34.1 g/dL 32-36 [facility] Mean platelet volume determi nationOrdered By: Lyssa Aguila on 02-21-2025 Platelet mean volume (Bld) [Entitic vol] 10.1 fL 6.2-12.0 [facility] Monocyte percentageOrdered B y: Lyssa Aguila on 02-21-2025 Monocytes/100 WBC (Bld) 5.7 % 0-10 [facility] Neutrophil percentageOrdered By: Lyssa Aguila on 02-21-2025 Neutrophils/100 WBC (Bld) 77.3 % High 47-70 [facility] Nucleated red blood cell per centageOrdered By: Lyssa Aguila on 02-21-2025 Nucleated RBC/100 WBC (Bld) [Ratio] 0 % 0-5 [facility] Inbound Telemarketer Office Visit Reporton 02-21-2025 Inbound Telemarketer Office Visit Report [facility] [address], [address] [place] [address] OFFICE VISIT Date of Service: 02/21/25 MR#: [id number] Acct: [id number] Name: DEMARCUS ABAD Rep #: [id number] : 1990 Provider: SULLY Boudreaux ams Age/Sex: 35/F Location: [facility] Status: Signed Intake Vital Signs 12/27/24 09:51 01/25/25 13:59 02/21/25 11:01 Height 5 ft 2 in 5 ft 2 in 5 ft 2 in Weight: 167 lb 2 oz 170 lb 8 oz BMI 30.5 31.1 BP 111/73 103/68 Intake Visit Reasons: 20 wk ob Chief Complaint: 20wk OB Heating Element Builder Required: No Is patient in pain?: No Allergies Penicillins Allergy (Unknown, Verified 02/21/25 10:59) Unknown Medications ???Medication ???Instructions ???Recorded ???Confirmed ???Type ferrous sulfate 325 mg (65 mg 325 mg PO DAILY 09/05/23 02/21/25 History iron) tablet (Feosol) multivit-min no.71-iron fum 28 cap PO 11/12/24 02/21/25 History mg-folate no.1 1 mg-dha 300 mg capsule (PNV-Needmore) methimazole 5 mg tablet 2.5 mg (1/2 x 5 mg) PO .every 01/0402/21/25 Rx other day #15 tabs Last Menstrual Period: 09/27/24 : No PFSH PFSH Medical History Hot thyroid nodule Hx of varicose veins of lower extremity Depression Nodular goiter HPV (human papilloma virus) infection Thyroid disorder Pre-eclampsia Abnormal glucose Anemia Surgical History History of bunionectomy of right great toe [place] teeth extracted History of colposcopy Family History Mother Hypertension Father Diabetes Aunt Thyroid disorder Maternal- unknown type Social History adopted: No household members: spouse and children housing: house number of children: 2 current occupational status: unemployed current occupation: [employer] pets and animals: Yes (no litter [...] physical activity do you participate in: none [place]/jew: Gnosticism seatbelt use: always do you feel safe at home: Yes 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 Date Name GA/Weeks Outcome Route Bth Weight Infant Gen Labor Lgth Anesthesia Del Locatn Provider FOB Unknown 08/2024 6 spontaneous 04/30/08 Shlomo 36 live - 6# Male epidural [facility] Taye 08/08/21 Emalie 36 live - 6lbs 14oz Female epidural [facility] [place] Delivery Date: 04/30/08 Last Updated by: Manda Aguirre VICE PRESIDENT FOR PHILANTHROPY, VICE PRESIDENT FOR PHILANTHROPY-C Induced to preeclampsia, teen Delivery Date: 08/08/21 [...] -???-???-???-???-??? - (more content not included)... Normal [facility] Platelet countOrdered By: Miko Aguila on 02-21-2025 Platelets (Bld) [#/Vol] 238 10*3/uL 150-450 [facility] RBC Auto (Bld) [#/Vol]Ordere d By: Lyssa Aguila on 02-21-2025 RBC (Bld) [#/Vol] 4.45 10*6/uL 4.2-5.4 [facility] T4 Free Directon 02-21-2025 T4 FREE DIRECT 0.80 ng/dL Normal 0.76-1.46 [facility] Comment on above: Performed By: #### L 501.0900, M100.2200, L7000.1800 #### [facility] [address] [place], [place], [address] T4 freeOrdered By: Denis Galdamez on 02-21-2025 Free T4 [Mass/Vol] 0.80 ng/dL 0.76-1.46 [facility] TSH DL <= 0.005 mIU/L QnOrde red By: Denis Galdamez on 02-21-2025 TSH Qn 0.193 uIU/mL Low 0.300-4.200 [facility] Thyroid Stim Hormone (TSH)on 02-21-2025 TSH 0.193 uIU/mL Low 0.300-4.200 [facility] Comment on above: Performed By: #### L 501.0900, M100.2200, L7000.1800 #### [facility] [address] [place], [address] White blood cell (WBC) count Ordered By: Lyssa Aguila on 02-21-2025 WBC (Bld) [#/Vol] 10.1 10*3/uL 4.4-11.0 [facility] - Chemistry and C hemistry - challengeOrdered By: Gaby Trimble on 01-25-2025 Glucose Ql (U) Negative [facility] - UrinalysisOrder ed By: Gaby Trimble on 01-25-2025 Protein Ql (U) Negative [facility] Inbound Telemarketer Office Visit Reporton 01-25-2025 Inbound Telemarketer Office Visit Report [facility] [address] [place] [address], [address] [place] [address] OFFICE VISIT Date of Service: 01/25/25 MR#: [id number] Acct: [id number] Name: DEMARCUS ABAD Rep #: [id number] : 1990 Provider: Dr. Gaby rondno MD Age/Sex: 34/F Location: [facility] Status: Signed Intake Vital Signs 11/24/24 12:59 01/10/25 13:57 01/25/25 13:59 Height 5 ft 2 in 5 ft 2 in 5 ft 2 in Weight: 167 lb 2 oz BMI 30.5 BP 111/73 Intake Visit Reasons: 16 wk ob Heating Element Builder Required: No Is patient in pain?: Yes (severe round ligament pain this ) Allergies Penicillins Allergy (Unknown, Verified 01/25/25 14:00) Unknown Medications ???Medication ???Instructions ???Recorded ???Confirmed ???Type ferrous sulfate 325 mg (65 mg 325 mg PO DAILY 09/05/23 01/25/25 History iron) tablet (Feosol) multivit-min no.71-iron fum 28 cap PO 11/12/24 01/25/25 History mg-folate no.1 1 mg-dha 300 mg capsule (PNV-Needmore) methimazole 5 mg tablet 2.5 mg (1/2 [...] History of bunionectomy of right great toe [place] teeth extracted History of colposcopy Family History Mother Hypertension Father Diabetes Aunt Thyroid disorder Maternal- unknown type Social History adopted: No household members: spouse and children housing: house number of children: 2 current occupational status: unemployed current occupation: [employer] pets and animals: Yes (no litter [...] physical activity do you participate in: none [place]/jew: Gnosticism seatbelt use: always do you feel safe [...] Shlomo 36 live - 6# Male epidural [facility] Taye 08/08/21 Emalie 36 live - 6lbs 14oz Female epidural [facility] [place] Delivery Date: 04/30/08 Last Updated by: Manda Aguirre VICE PRESIDENT FOR PHILANTHROPY, VICE PRESIDENT FOR PHILANTHROPY-C Induced to preeclampsia, teen Delivery Date: 08/08/21 [...] -???-???- KW (more content not included)... Normal [facility] Free T3on 01-17-2025 Free T3 [Mass/Vol] 3.3 pg/mL Normal 2.18-3.98 [facility] Comment on above: Performed By: #### L 501.95, L501.87589, L506.0400 #### [facility] [address] [place], [address] Free [id number] By: Denis Galdamez on 01-17-2025 Free T3 [Mass/Vol] 3.3 pg/mL 2.18-3.98 [facility] T4 Free Directon 01-17-2025 T4 FREE DIRECT 1.00 ng/dL Normal 0.76-1.46 [facility] Comment on above: Performed By: #### L 501.9520, L501.04601, L506.0400 #### [facility] [address] [place], [address] T4 freeOrdered By: Denis Galdamez on 01-17-2025 Free T4 [Mass/Vol] 1.00 ng/dL 0.76-1.46 [facility] TSH DL <= 0.005 mIU/L QnOrde red By: Denis Galdamez on 01-17-2025 TSH Qn 0.022 uIU/mL Low 0.300-4.200 [facility] Thyroid Stim Hormone (TSH)on 01-17-2025 TSH 0.022 uIU/mL Low 0.300-4.200 [facility] Comment on above: Performed By: #### L 501.9520, L501.17874, L506.0400 #### [facility] [address] [place], [address] Inbound Telemarketer Office Visit Reporton 01-10-2025 Inbound Telemarketer Office Visit Report [facility] [address], [address] [place] [address] OFFICE VISIT Date of Service: 01/10/25 MR#: [id number] Acct: [id number] Name: DEMARCUS ABAD Rep #: [id number] : 1990 Provider: LUCILA arriola Age/Sex: 34/F Location: [facility] Status: Signed Intake Vital Signs 12/30/24 13:27 [...] check Chief Complaint: 15 Week heart check Heating Element Builder Required: No Is patient in pain?: No Allergies Penicillins Allergy (Unknown, Verified 01/10/25 13:53) Unknown Medications ???Medication ???Instructions ???Recorded ???Confirmed ???Type ferrous sulfate 325 mg (65 mg 325 mg PO DAILY 09/05/23 01/10/25 History iron) tablet (Feosol) multivit-min no.71-iron fum 28 cap PO 11/12/24 01/10/25 History mg-folate no.1 1 mg-dha 300 mg capsule (PNV-Needmore) Last Menstrual Period: 09/27/24 Zika: Zika virus screening: Negative : No PFSH PFSH Medical History Hot thyroid nodule Hx of varicose veins of lower extremity Depression Nodular goiter HPV (human papilloma virus) infection Thyroid disorder Pre-eclampsia Abnormal glucose Anemia Surgical History History of bunionectomy of right great toe [place] teeth extracted History of colposcopy Family History Mother Hypertension Father Diabetes Aunt Thyroid disorder Maternal- unknown type Social History adopted: No household members: spouse and children housing: house number of children: 2 current occupational status: unemployed current occupation: [employer] pets and animals: Yes (no litter [...] physical activity do you participate in: none [place]/jew: Gnosticism seatbelt use: always do you feel safe [...] Shlomo 36 live - 6# Male epidural [facility] Taye 08/08/21 Emalie 36 live - 6lbs 14oz Female epidural [facility] [place] Delivery Date: 04/30/08 Last Updated by: Manda Aguirre VICE PRESIDENT FOR PHILANTHROPY, VICE PRESIDENT FOR PHILANTHROPY-C Induced to preeclampsia, teen Delivery Date: 08/08/21 [...] -???-???-???-???-??? -???-???-?? (more content not included)... Normal [facility] Endocrinology Visit Reporton 12-30-2024 Endocrinology Visit Report [facility] [address] [facility] [place] [address] OFFICE VISIT Date of Service: 12/30/24 MR#: [id number] Acct: [id number] Name: DEMARCUS ABAD Rep #: [id number] : 1990 Provider: Ashly Yusuf Age/Sex: 34/F Location[place] [facility] [place] Status: Signed Intake Vital Signs 12/27/24 09:51 [...] mg-folate no.1 1 mg-dha 300 mg capsule (PNV-[place]) Patient : Yes (13 weeks) [facility]LY [facility] Medical History (Updated 01/03/25 @ 10:[address] Denis Galdamez MD) Hot thyroid nodule Hx of varicose veins of lower extremity Depression Nodular goiter HPV (human papilloma virus) infection Thyroid disorder Pre-eclampsia Abnormal glucose Anemia Surgical History History of bunionectomy of right great toe [place] teeth extracted History of colposcopy Family History Mother Hypertension Father Diabetes Aunt Thyroid disorder Maternal- unknown type Social History adopted: No household members: spouse and children housing: house number of children: 2 current occupational status: unemployed current occupation: [employer] pets and animals: Yes (no litter [...] physical activity do you participate in: none [place]/jew: Gnosticism seatbelt use: always do you feel safe at home: Yes additional social history: Med[place]- [facility]omos [facility] Female Reproductive History Menstrual Ab spontaneous: 1 [...] normal Periorbital: (more content not included)... Normal [facility] Urine Cultureon 12-28-2024 URC Culture exhibits no growth. Normal [facility] Comment on above: Performed By: #### L 501.0900, M100.2200, L7000.1800 #### [facility] [address] [place], [place], [id number] Absolute lymphocyte countOrd ered By: Lyssa Aguila on 12-27-2024 Lymphocytes Auto (Unsp spec) [#/Vol] 1.50 10*3/uL 0.83-4.51 [facility] Absolute neutrophil countOrd ered By: Lyssa Aguila on 12-27-2024 Neutrophils (Bld) [#/Vol] 5.7 10*3/uL 2.0-7.7 [facility] Anion gap in Serum or Plasma Ordered By: Lyssa Aguila on 12-27-2024 Anion gap [Moles/Vol] 12 mmol/L 5-15 [facility] Automated lymphocyte count a s percentage of total leukocytesOrdered By: Lyssa Aguila on 12-27-2024 Lymphocytes/100 WBC Auto (Unsp spec) 19.2 % 19-41 [facility] BUN/creatinine ratioOrdered By: Lyssa Aguila on 06-23-2025 Urea nitrogen/Creatinine [Mass ratio] 8.3 mg/mg Low 10-20 [facility] Comment on above: Previous reported re sult: 8.0 RATIOEdited by: AUTOINS on 12/27/24:1342 AMENDED REPORT 12/27/24 1342 BUN/CRE previously reported as: 8.0 L RATIO Basophil percentageOrdered B y: Lyssa Aguila on 12-27-2024 Basophils/100 WBC (Bld) 0.4 % 0-1 [facility] Bilirubin, totalOrdered By: Lyssa Aguila on 12-27-2024 Bilirubin [Mass/Vol] 0.27 mg/dL 0.00-1.30 [facility] Comment on above: Previous reported re sult: 0.26 mg/dLEdited by: AUTOINDevi on 12/27/24:1342 AMENDED REPORT 12/27/241341 T BILI previously reported as: 0.26 mg/dL CBC W/Diff, Automatedon 12-06 Absolute Lymph 1.50 X10 3/uL Normal 0.83-4.51 [facility] Comment on above: Performed By: #### L 500.4050, L100.0100, L501.9985, L3890.6102, L3890.6006, L509.4006, L3890.6301, L501.9520, BTS, L509.8002, L900.0098 #### [facility] [address] [facility] [place], [address] Absolute Neut 5.7 X10 3/uL Normal 2.0-7.7 [facility] Comment on above: Performed By: #### L 500.4050, L100.0100, L501.9985, L3890.6102, L3890.6006, L509.4006, L3890.6301, L501.9520, BTS, L509.8002, L900.0098 #### [facility] [address] [facility] [facility] [facility] [place], [address] Basophils/100 WBC (Bld) 0.4 % Normal 0-1 [facility] Comment on above: Performed By: #### L 500.4050, L100.0100, L501.9985, L3890.6102, L3890.6006, L509.4006, L3890.6301, L501.9520, BTS, L509.8002, L900.0098 #### [facility] [address] [place], [address] Eosinophils/100 WBC (Bld) 0.9 % Normal 0-5 [facility] Comment on above: Performed By: #### L 500.4050, L100.0100, L501.9985, L3890.6102, L3890.6006, L509.4006, L3890.6301, L501.9520, BTS, L509.8002, L900.0098 #### [facility] [address] [place], [address] Erythrocyte distribution width (RBC) [Ratio] 12.5 % Normal 11.6-14.6 [facility] Comment on above: Performed By: #### L 500.4050, L100.0100, L501.9985, L3890.6102, L3890.6006, L509.4006, L3890.6301, L501.9520, BTS, L509.8002, L900.0098 #### [facility] [address] [place], [address] Hematocrit (Bld) [Volume fraction] 41.4 % Normal 37-47 [facility] Comment on above: Performed By: #### L 500.4050, L100.0100, L501.9985, L3890.6102, L3890.6006, L509.4006, L3890.6301, L501.9520, BTS, L509.8002, L900.0098 #### [facility] [address] [place], [address] Hemoglobin (Bld) [Mass/Vol] 13.9 g/dL Normal 12.0-15.0 [facility] Comment on above: Performed By: #### L 500.4050, L100.0100, L501.9985, L3890.6102, L3890.6006, L509.4006, L3890.6301, L501.9520, BTS, L509.8002, L900.0098 #### [facility] [address] [place], [address] IG% 0.500 Normal 0.0-0.9 [facility] Comment on above: Result Comment: IG% - Immature Granulocytes (promyelocytes, myelocytes and metamyelocytes) > 1% indicates that a LEFT SHIFT is Present. Performed By: #### L 500.4050, L100.0100, L501.9985, L3890.6102, L3890.6006, L509.4006, L3890.6301, L501.9520, BTS, L509.8002, L900.0098 #### [facility] [address] [place], [address] Lymphocytes/100 WBC (Bld) 19.2 % Normal 19-41 [facility] Comment on above: Performed By: #### L 500.4050, L100.0100, L501.9985, L3890.6102, L3890.6006, L509.4006, L3890.6301, L501.9520, BTS, L509.8002, L900.0098 #### [facility] [address] [place], [address] MCH (RBC) [Entitic mass] 29.3 pg Normal 27.0-32.0 [facility] Comment on above: Performed By: #### L 500.4050, L100.0100, L501.9985, L3890.6102, L3890.6006, L509.4006, L3890.6301, L501.9520, BTS, L509.8002, L900.0098 #### [facility] [address] [place], [address] MCHC (RBC) [Mass/Vol] 33.6 g/dL Normal 32-36 [facility] Comment on above: Performed By: #### L 500.4050, L100.0100, L501.9985, L3890.6102, L3890.6006, L509.4006, L3890.6301, L501.9520, BTS, L509.8002, L900.0098 #### [facility] [address] [place], [address] MCV (RBC) [Entitic vol] 87.3 fL Normal 81-99 [facility] Comment on above: Performed By: #### L 500.4050, L100.0100, L501.9985, L3890.6102, L3890.6006, L509.4006, L3890.6301, L501.9520, BTS, L509.8002, L900.0098 #### [facility] [address] [place], [address] Monocytes/100 WBC (Bld) 6.1 % Normal 0-10 [facility] Comment on above: Performed By: #### L 500.4050, L100.0100, L501.9985, L3890.6102, L3890.6006, L509.4006, L3890.6301, L501.9520, BTS, L509.8002, L900.0098 #### [facility] [address] [place], [address] Neutrophils/100 WBC (Bld) 72.9 % High 47-70 [facility] Comment on above: Performed By: #### L 500.4050, L100.0100, L501.9985, L3890.6102, L3890.6006, L509.4006, L3890.6301, L501.9520, BTS, L509.8002, L900.0098 #### [facility] [address] [place], [address] Nucleated RBC (Bld) [#/Vol] 0 10*3/uL Normal 0-5 [facility] Comment on above: Performed By: #### L 500.4050, L100.0100, L501.9985, L3890.6102, L3890.6006, L509.4006, L3890.6301, L501.9520, BTS, L509.8002, L900.0098 #### [facility] [address] [place], [address] Platelet mean volume (Bld) [Entitic vol] 10.2 fL Normal 6.2-12.0 [facility] Comment on above: Performed By: #### L 500.4050, L100.0100, L501.9985, L3890.6102, L3890.6006, L509.4006, L3890.6301, L501.9520, BTS, L509.8002, L900.0098 #### [facility] [address] [facility] [place], [address] Platelets (Bld) [#/Vol] 236 10*3/uL Normal 150-450 [facility] Comment on above: Performed By: #### L 500.4050, L100.0100, L501.9985, L3890.6102, L3890.6006, L509.4006, L3890.6301, L501.9520, BTS, L509.8002, L900.0098 #### [facility] [address] [place], [address] RBC (Bld) [#/Vol] 4.74 10*6/uL Normal 4.2-5.4 [facility] Comment on above: Performed By: #### L 500.4050, L100.0100, L501.9985, L3890.6102, L3890.6006, L509.4006, L3890.6301, L501.9520, BTS, L509.8002, L900.0098 #### [facility] [address] [place], [address] RDW SD 40.3 fl Normal 35.1-43.9 [facility] Comment on above: Performed By: #### L 500.4050, L100.0100, L501.9985, L3890.6102, L3890.6006, L509.4006, L3890.6301, L501.9520, BTS, L509.8002, L900.0098 #### [facility] [address] [place], [address] WBC (Bld) [#/Vol] 7.8 10*3/uL Normal 4.4-11.0 [facility] Comment on above: Performed By: #### L 500.4050, L100.0100, L501.9985, L3890.6102, L3890.6006, L509.4006, L3890.6301, L501.9520, BTS, L509.8002, L900.0098 #### [facility] [address] [place], [address] Carbon dioxide, total [Moles /volume] in Central venous bloodOrdered By: Lyssa Aguila on 12-27-2024 CO2 [Moles/Vol] 20.8 mmol/L Low 21.0-32.0 [facility] Comment on above: Previous reported re sult: 22.0 mmol/LEdited by: ALEXNADER on 12/27/24:1342 AMENDED REPORT 12/27/24 1342 CO2 previously reported as: 22.0 mmol/L Chloride assayOrdered By: Miko Aguila on 12-27-2024 Chloride [Moles/Vol] 102 mmol/L 98-108 [facility] Comment on above: Previous reported re sult: 101 mmol/LEdited by: AUTOINS on 12/27/24:1342 AMENDED REPORT 12/27/241341 CL previously reported as: 101 mmol/L Comprehensive Metabolic Prof ilon 12-27-2024 Albumin [Mass/Vol] 4.1 g/dL Normal 3.5-5.0 [facility] Comment on above: Result Comment: AMENDED REPORT 12/27/241341 ALB previously reported as: 4.1 g/dL Performed By: #### L 501.0900, M100.2200, L7000.1800 #### [facility] [address] [place], [address] Albumin/Globulin [Mass ratio] 1.5 {ratio} Normal 0.9-2.4 [facility] Comment on above: Result Comment: AMENDED REPORT 12/27/241341 A/G previously reported as: 1.5 RATIO Performed By: #### L 501.0900, M100.2200, L7000.1800 #### [facility] [address] [place], [address] ALK PHOS 61 U/L Normal 35-104 [facility] Comment on above: Result Comment: AMENDED REPORT 12/27/241341 ALK P previously reported as: 61 U/L Performed By: #### L 501.0900, M100.2200, L7000.1800 #### [facility] [address] [place], [address] ALT [Catalytic activity/Vol] 15 U/L Normal <=34 [facility] Comment on above: Result Comment: AMENDED REPORT 12/27/241341 ALT previously reported as: 15 U/L Performed By: #### L 501.0900, M100.2200, L7000.1800 #### [facility] [address] [place], [address] AST [Catalytic activity/Vol] 18 U/L Normal <=31 [facility] Comment on above: Performed By: #### L 501.0900, M100.2200, L7000.1800 #### [facility] [address] [place], [address] Bilirubin [Mass/Vol] 0.26 mg/dL Normal 0.00-1.30 [facility] Comment on above: Result Comment: AMENDED REPORT 12/27/241341 T BILI previously reported as: 0.26 mg/dL Performed By: #### L 501.0900, M100.2200, L7000.1800 #### [facility] [address] [place], [address] BUN/CRE 8.0 RATIO Low 10-20 [facility] Comment on above: Result Comment: AMENDED REPORT 12/27/241341 BUN/CRE previously reported as: 8.0 L RATIO Performed By: #### L 501.0900, M100.2200, L7000.1800 #### [facility] [address] [place], [address] Calcium [Mass/Vol] 9.4 mg/dL Normal 7.6-11.0 [facility] Comment on above: Result Comment: AMENDED REPORT 12/27/241341 CA previously reported as: 9.4 mg/dL Performed By: #### L 501.0900, M100.2200, L7000.1800 #### [facility] [address] [place], [address] Chloride [Moles/Vol] 101 mmol/L Normal 98-108 [facility] Comment on above: Result Comment: AMENDED REPORT 12/27/241341 CL previously reported as: 101 mmol/L Performed By: #### L 501.0900, M100.2200, L7000.1800 #### [facility] [address] [place], [address] CO2 [Moles/Vol] 22.0 mmol/L Normal 21.0-32.0 [facility] Comment on above: Result Comment: AMENDED REPORT 12/27/241341 CO2 previously reported as: 22.0 mmol/L Performed By: #### L 501.0900, M100.2200, L7000.1800 #### [facility] [address] [place], [address] Creatinine [Mass/Vol] 0.65 mg/dL Low 0.70-1.20 [facility] Comment on above: Result Comment: AMENDED REPORT 12/27/241341 CREAT,SERUM previously reported as: 0.65 L mg/dL Performed By: #### L 501.0900, M100.2200, L7000.1800 #### [facility] [address] [place], [address] GAP 12 Normal 5-15 [facility] Comment on above: Performed By: #### L 501.0900, M100.2200, L7000.1800 #### [facility] [address] [place], [address] GFR/1.73 sq M.predicted among non-blacks MDRD (S/P/Bld) [Vol rate/Area] 118 mL/min/{1.73_m2} Normal >60 [facility] Comment on above: Result Comment: mL/m in/1.73m2 CKD-EPI Creatinine Equation (2020) Performed By: #### L 501.0900, M100.2200, L7000.1800 #### [facility] [address] [place], [address] Globulin (S) [Mass/Vol] 2.6 g/dL Normal 2.2-4.2 [facility] Comment on above: Result Comment: AMENDED REPORT 12/27/241341 GLOB previously reported as: 2.6 g/dL Performed By: #### L 501.0900, M100.2200, L7000.1800 #### [facility] [address] [place], [address] Glucose [Mass/Vol] 74 mg/dL Normal 70-99 [facility] Comment on above: Result Comment: AMENDED REPORT 12/27/24 1342 GLU previously reported as: 74 mg/dL Performed By: #### L 501.0900, M100.2200, L7000.1800 #### [facility] [address] [place], [address] Potassium [Moles/Vol] 4.0 mmol/L Normal 3.3-5.1 [facility] Comment on above: Result Comment: AMENDED REPORT 12/27/241341 K previously reported as: 4.0 mmol/L Performed By: #### L 501.0900, M100.2200, L7000.1800 #### [facility] [address] [place], [address] Sodium [Moles/Vol] 135 mmol/L Normal 133-145 [facility] Comment on above: Performed By: #### L 501.0900, M100.2200, L7000.1800 #### [facility] [address] [place], [address] T PROT 6.7 g/dL Normal 5.9-8.4 [facility] Comment on above: Result Comment: AMENDED REPORT 12/27/24 1342 T PROT previously reported as: 6.7 g/dL Performed By: #### L 501.0900, M100.2200, L7000.1800 #### [facility] [address] [place], [address] Urea nitrogen [Mass/Vol] 5 mg/dL Normal 4-19 [facility] Comment on above: Performed By: #### L 501.0900, M100.2200, L7000.1800 #### [facility] [address] [place], [place], [address] Eosinophil percentageOrdered By: Lyssa Aguila on 12-27-2024 Eosinophils/100 WBC (Bld) 0.9 % 0-5 [facility] Erythrocyte distribution wid th ratioOrdered By: Lyssa Aguila on 12-27-2024 Erythrocyte distribution width (RBC) [Ratio] 12.5 % 11.6-14.6 [facility] Erythrocyte distribution wid th standard deviationOrdered By: Lyssa Aguila on 12-27-2024 Erythrocyte distribution width (RBC) [Ratio] 40.3 fl 35.1-43.9 [facility] Glomerular filtration rate ( GFR) estimation/1.73 sq m using serum, plasma, or whole bOrdered By: Lyssa Aguila on 12-27-2024 GFR/1.73 sq M.predicted among non-blacks MDRD (S/P/Bld) [Vol rate/Area] 118 mL/min/{1.73_m2} >60 [facility] Comment on above: mL/min/1.73m2 CKD-EP I Creatinine Equation (2020) HIVon 12-27-2024 HIV Non-Reactive Normal Nonreactive [facility] Comment on above: Result Comment: Non- Reactive Reactive Repeatedly reactive samples must be confirmed according to CDC recommended confirmatory algorithms. The subresults for either HIVAG or AHIV can be used as an aid in the selection of the confirmation algorithm for reactive samples. Send out specimens with Reactive results to [facility] for confirmation. Order the HIV antibody detection and differentiation: #[id number] Performed By: #### L 501.0900, M100.2200, L7000.1800 #### [facility] [address] [place], [address] Hematocrit Auto (Bld) [Volum e fraction]Ordered By: Lyssa Aguila on 12-27-2024 Hematocrit (Bld) [Volume fraction] 41.4 % 37-47 [facility] Hemoglobin A1con 12-27-2024 HbA1c (Bld) [Mass fraction] 5.1 % Normal <=5.6 [facility] Comment on above: Result Comment: Norm al < 5.7 % Prediabetic 5.7 - 6.4 % Diabetic >or= 6.5 % Please note range changes. Performed By: #### L 501.0900, M100.2200, L7000.1800 #### [facility] [address] [facility] [address] [place], [address] Hemoglobin A1c percentageOrd ered By: Lyssa Aguila on 12-27-2024 HbA1c (Bld) [Mass fraction] 5.1 % <5.7 [facility] Comment on above: Normal < 5.7 % Predi abetic 5.7 - 6.4 % Diabetic >or= 6.5 % Please note range changes. Hemoglobin measurementOrdere d By: Lyssa Aguila on 12-27-2024 Hemoglobin (Bld) [Mass/Vol] 13.9 g/dL 12.0-15.0 [facility] Hepatitis C Antibodyon 12-27 Hepatitis C Ab Non-Reactive Normal Nonreactive [facility] Comment on above: Result Comment: Reac tive: Presumptive evidence of antibodies to HCV. Follow CDC recommendations for supplemental testing. Non-Reactive: Antibodies to HCV were not detected; does not exclude the possibility of exposure to HCV Reactive Results are presumptive evidence of antibodies to HCV. Follow CDC recommendations for supplemental testing. Order confirmation testing: HCV Quant by PCR testing - HCVPCR #[id number] Non Reactive: < 0.8 Equivocal: >/= 0.8 to < 1.0 Reactive: >/= 1.0 The CDC requires that a reactive/equivocal HCV antibody result be sent out for confirmation. HCV Quant by PCR testing. Performed By: #### L 501.0900, M100.2200, L7000.1800 #### [facility] [address] [place], [address] Immature granulocytes/100 WB C Auto (Bld)Ordered By: Lyssa Aguila on 12-27-2024 Immature granulocytes/100 WBC (Bld) 0.500 % 0.0-0.9 [facility] Comment on above: IG% - Immature Granu locytes (promyelocytes, myelocytes and metamyelocytes) > 1% indicates that a LEFT SHIFT is Present. L3890.6102on 12-27-2024 HEP B Surf Ag Non-Reactive Normal Nonreactive [facility] Comment on above: Result Comment: Reac tive: Presumptive evidence of HBV. Repeatedly reactive samples must be confirmed using a neutralization test ([employer] HBsAg Confirmatory Test) Non-Reactive: HBsAg not detected; does not exclude the possibility of exposure to HBV Performed By: #### L 501.0900, M100.2200, L7000.1800 #### [facility] [address] [place], [address] L509.4006on 12-27-2024 Rubella IgG REAC Normal Nonreactive [facility] Comment on above: Result Comment: Anti body Result: Interpretation Non-Reactive: Non-Immune Reactive: Immune The following results were obtained with the [employer] Rubella IgG assay. Results from assays of other manufacturers cannot be used interchangeably. Performed By: #### L 501.0900, M100.2200, L7000.1800 #### [facility] [address] [place], [place], [address] Laboratory - Chemistry and C hemistry - challengeOrdered By: Lyssa Aguila on 12-27-2024 AST [Catalytic activity/Vol] 18 U/L <32 [facility] - Chemistry and C hemistry - challengeOrdered By: Manda Aguirre on 12-27-2024 Bilirubin Ql (U) Negative [facility] Glucose Ql (U) Negative [facility] Ketones Ql (U) Negative [facility] pH (U) 6.5 [pH] [facility] Specific gravity (U) [Rel density] 1.010 [facility] Urobilinogen (U) [Mass/Vol] Negative [facility] Laboratory - Hematology and Cell countsOrdered By: Manda Aguirre on 12-27-2024 Hemoglobin Ql (U) Negative [facility] - Microbiology an d Antimicrobial susceptibilityOrdered By: Lyssa Aguila on 12-27-2024 HBV surface Ag Ql (S) Non-Reactive Nonreactive [facility] Comment on above: Reactive: Presumptiv e evidence of HBV. Repeatedly reactive samples must be confirmed using a neutralization test ([employer] HBsAg Confirmatory Test)Non-Reactive: HBsAg not detected; does not exclude the possibility of exposure to HBV Laboratory - Specimen inform ationOrdered By: Manda Aguirre on 12-27-2024 Clarity (U) Clear [facility] Color (U) YELLOW [facility] Laboratory - UrinalysisOrder ed By: Manda Aguirre on 12-27-2024 Nitrite Ql (U) Negative [facility] Protein Ql (U) Negative [facility] MCV (mean corpuscular volume ) determinationOrdered By: Lyssa Aguila on 12-27-2024 MCV (RBC) [Entitic vol] 87.3 fL 81-99 [facility] Mean corpuscular hemoglobin (MCH) determinationOrdered By: Lyssa Aguila on 12-27-2024 MCH (RBC) [Entitic mass] 29.3 pg 27.0-32.0 [facility] Mean corpuscular hemoglobin concentration (MCHC) determinationOrdered By: Lyssa Aguila on 12-27-2024 MCHC (RBC) [Mass/Vol] 33.6 g/dL 32-36 [facility] Mean platelet volume determi nationOrdered By: Lyssa Aguila on 12-27-2024 Platelet mean volume (Bld) [Entitic vol] 10.2 fL 6.2-12.0 [facility] Monocyte percentageOrdered B y: Lyssa Aguila on 12-27-2024 Monocytes/100 WBC (Bld) 6.1 % 0-10 [facility] NATERAon 12-27-2024 NATURA SEE SCANNED REPORT Normal [facility] Comment on above: Performed By: #### L 500.4050, L100.0100, L501.9985, L3890.6102, L3890.6006, L509.4006, L3890.6301, L501.9520, BTS, L509.8002, L900.0098 #### [facility] [address] [place], [place], [id number] Neutrophil percentageOrdered By: Lyssa Aguila on 12-27-2024 Neutrophils/100 WBC (Bld) 72.9 % High 47-70 [facility] No Panel InformationOrdered By: Lyssa Aguila on 12-27-2024 HIV (1&2) Antibody Non-Reactive Nonreactive [facility] Comment on above: Non-ReactiveReactive Repeatedly reactive samples must be confirmed according to CDC recommended confirmatory algorithms. The subresults for either HIVAG or AHIV can be used as an aid in the selection of the confirmation algorithm for reactive samples.Send out specimens with Reactive results to [facility] for confirmation.Order the HIV antibody detection and differentiation: #[id number] No Panel InformationOrdered By: Manda Aguirre on 12-27-2024 Urine Leukocytes Positive [facility] Urine Non-Hemolyzed Blood Negative [facility] Nucleated red blood cell per centageOrdered By: Lyssa Aguila on 12-27-2024 Nucleated RBC/100 WBC (Bld) [Ratio] 0 % 0-5 [facility] Inbound Telemarketer Office Visit Reporton 12-27-2024 Inbound Telemarketer Office Visit Report [facility] [address], [address] [place] [address] OFFICE VISIT Date of Service: 12/27/24 MR#: [id number] Acct: [id number] Name: DEMARCUS ABAD Rep #: [id number] : 1990 Provider: LUCILA arriola Age/Sex: 34/F Location: [facility] [place] Status: Signed Intake Vital Signs 08/23/24 15:14 11/24/24 12:59 12/27/24 09:51 12/27/24 09:51 Height 5 ft 2 in 5 ft 2 in 5 ft 2 in 5 ft 2 in Weight: 168 lb 8 oz 166 lb BMI 30.8 30.3 BP 108/74 115/73 Intake Visit Reasons: 12 wks OB Heating Element Builder Required: No Is patient in pain?: No Allergies Penicillins Allergy (Unknown, Verified 12/27/24 09:51) Unknown Medications ???Medication ???Instructions ???Recorded ???Confirmed ???Type ferrous sulfate 325 mg (65 mg 325 mg PO DAILY 09/05/23 12/27/24 History iron) tablet (Feosol) multivit-min no.71-iron fum 28 cap PO 11/12/24 12/27/24 History mg-folate no.1 1 mg-dha 300 mg capsule (PNV-Needmore) nitrofurantoin 100 mg PO BID 7 days #14 caps 12/0612/27/24 Rx monohydrate/macrocry stals 100 mg capsule (Macrobid) Last Menstrual Period: 09/27/24 Zika: Zika virus screening: Negative : No PFSH PFSH Medical History Hx of varicose veins of lower extremity Depression Nodular goiter HPV (human papilloma virus) infection Thyroid disorder Pre-eclampsia Abnormal glucose Anemia Surgical History History of bunionectomy of right great toe [place] teeth extracted History of colposcopy Family History Mother Hypertension Father Diabetes Aunt Thyroid disorder Maternal- unknown type Social History adopted: No household members: spouse and children housing: house number of children: 2 current occupational status: unemployed current occupation: [employer] pets and animals: Yes (no litter [...] physical activity do you participate in: none [place]/jew: Gnosticism seatbelt use: always do you feel safe at home: Yes 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 Date Name GA/Weeks Outcome Route Bth Weight Gen Labor Lgth Anesthesia Del Locatn Provider FOB Unknown 08/2024 6 spontaneous 04/30/08 Shlomo 36 live - 6# Male epidural [facility] Taye 08/08/21 Emalie 36 live - 6lbs 14oz Female epidural [facility] [place] Delivery Date: 04/30/08 Last Updated by: Manda Aguirre VICE PRESIDENT FOR PHILANTHROPY, VICE PRESIDENT FOR PHILANTHROPY-C Induced to preeclampsia, teen Delivery Date: 08/08/21 [...] CRL c (more content not included)... Normal [facility] Platelet countOrdered By: Miko Agiula on 12-27-2024 Platelets (Bld) [#/Vol] 236 10*3/uL 150-450 [facility] Potassium measurement (mass/ volume)Ordered By: Lyssa Aguila on 12-27-2024 Potassium (Unsp spec) [Mass/Vol] 3.9 mmol/L 3.3-5.1 [facility] Comment on above: Previous reported re sult: 4.0 mmol/LEdited by: ALEXANDER on 12/27/24:1342 AMENDED REPORT 12/27/24 1342 K previously reported as: 4.0 mmol/L RBC Auto (Bld) [#/Vol]Ordere d By: Lyssa Aguila on 12-27-2024 RBC (Bld) [#/Vol] 4.74 10*6/uL 4.2-5.4 [facility] Serum creatinine measurement (mass/volume)Ordered By: Lyssa Aguila on 12-27-2024 Creatinine [Mass/Vol] 0.62 mg/dL Low 0.70-1.20 [facility] Comment on above: Previous reported re sult: 0.65 mg/dLEdited by: ALEXANDER on 12/27/24:1342 AMENDED REPORT 12/27/24 1342 CREAT,SERUM previously reported as: 0.65 L mg/dL Serum globulin measurementOr dered By: Lyssa Aguila on 12-27-2024 Globulin (S) [Mass/Vol] 3.2 g/dL 2.2-4.2 [facility] Comment on above: Previous reported re sult: 2.6 g/dLEdited by: ALEXANDER on 12/27/24:1342 AMENDED REPORT 12/27/24 1342 GLOB previously reported as: 2.6 g/dL Serum glucose measurement (m ass/volume)Ordered By: Lyssa Aguila on 12-27-2024 Glucose [Mass/Vol] 72 mg/dL 70-99 [facility] Comment on above: Previous reported re sult: 74 mg/dLEdited by: ALEXANDER on 12/27/24:1342 AMENDED REPORT 12/27/24 1342 GLU previously reported as: 74 mg/dL Serum or plasma alanine rose otransferase (ALT) measurementOrdered By: Lyssa Aguila on 12-27-2024 ALT [Catalytic activity/Vol] 16 U/L <35 [facility] Comment on above: Previous reported re sult: 15 U/LEdited by: NADEEMS on 12/27/24:1342 AMENDED REPORT 12/27/24 134 ALT previously reported as: 15 U/L Serum or plasma albumin david urement (mass/volume)Ordered By: Lyssa Aguila on 12-27-2024 Albumin [Mass/Vol] 3.8 g/dL 3.5-5.0 [facility] Comment on above: Previous reported re sult: 4.1 g/dLEdited by: ALEXANDER on 12/27/24:1342 AMENDED REPORT 12/27/24 1342 ALB previously reported as: 4.1 g/dL Serum or plasma albumin/glob ulin mass ratioOrdered By: Lyssa Aguila on 12-27-2024 Albumin/Globulin [Mass ratio] 1.2 {ratio} 0.9-2.4 [facility] Comment on above: Previous reported re sult: 1.5 RATIOEdited by: ALEXANDER on 12/27/24:1342 AMENDED REPORT 12/27/24 1342 A/G previously reported as: 1.5 RATIO Serum or plasma alkaline brayan sphatase measurementOrdered By: Lyssa Aguila on 12-27-2024 ALP [Catalytic activity/Vol] 58 U/L 35-104 [facility] Comment on above: Previous reported re sult: 61 U/LEdited by: ALEXANDER on 12/27/24:1342 AMENDED REPORT 12/27/24 134 ALK P previously reported as: 61 U/L Serum or plasma calcium david urement (mass/volume)Ordered By: Lyssa Aguila on 12-27-2024 Calcium [Mass/Vol] 9.1 mg/dL 7.6-11.0 [facility] Comment on above: Previous reported re sult: 9.4 mg/dLEdited by: AUTOINS on 12/27/24:1342 AMENDED REPORT 12/27/241341 CA previously reported as: 9.4 mg/dL Serum or plasma urea nitroge n measurement (mass/volume)Ordered By: Lyssa Aguila on 12-27-2024 Urea nitrogen [Mass/Vol] 5 mg/dL 4-19 [facility] Sodium levelOrdered By: Yuliana Aguila on 12-27-2024 Sodium [Moles/Vol] 135 mmol/L 133-145 [facility] Syphilis Antibodieson 2024 Syphilis Abs Non-Reactive Normal Nonreactive [facility] Comment on above: Performed By: #### L 501.0900, M100.2200, L7000.1800 #### [facility] [address], [place], [id number] TSH DL <= 0.005 mIU/L QnOrde red By: Lyssa Aguila on 12-27-2024 TSH Qn 0.026 uIU/mL Low 0.300-4.200 [facility] Thyroid Stim Hormone (TSH)on 12-27-2024 TSH 0.026 uIU/mL Low 0.300-4.200 [facility] Comment on above: Performed By: #### L 501.0900, M100.2200, L7000.1800 #### [facility] [address] [place], [place], [id number] Total proteinOrdered By: Jose Aguila on 12-27-2024 Protein [Mass/Vol] 7.0 g/dL 5.9-8.4 [facility] Comment on above: Previous reported re sult: 6.7 g/dLEdited by: AUTOINS on 12/27/24:1342 AMENDED REPORT 12/27/241341 T PROT previously reported as: 6.7 g/dL Type AND Screenon 12-27-2024 Ab SCREEN GEL Negative Normal [facility] Comment on above: Order Comment: PN Performed By: #### L 501.0900, M100.2200, L7000.1800 #### [facility] [address] [place], [address] Urine cultureOrdered By: Nishant Aguirre on 12-27-2024 Bacteria identified Cx Nom (U) Culture exhibits no growth. [facility] White blood cell (WBC) count Ordered By: Lyssa Aguila on 12-27-2024 WBC (Bld) [#/Vol] 7.8 10*3/uL 4.4-11.0 [facility] Chlamydia/GC GEETA aptimaon CHLAMY,NUC ACID Negative Normal Negative [facility] Comment on above: Performed By: #### L 501.0900, M100.2200, L7000.1800 #### [facility] [address] [place], [address] GC BY NUC ACID Negative Normal Negative [facility] Comment on above: Result Comment: Perf ormed at: =G - [facility] [address] [id number] [employer]lowing Machine Operator: Patrizia De La Torre MD, Phone: [phone] Performed By: #### L 501.0900, M100.2200, L7000.1800 #### [facility] [address] [place], [address] Protein+Creatinine Ratio,Uri neon 11-25-2024 PROT:CRE RATIO 51 mg/g CRE Normal 0-200 [facility] Comment on above: Performed By: #### L 501.0900, M100.2200, L7000.1800 #### [facility] [address] [place], [address] Protein (U) [Mass/Vol] 14.1 mg/dL High 0.0-12.0 [facility] Comment on above: Performed By: #### L 501.0900, M100.2200, L7000.1800 #### [facility] [address] [place], [address] UR CREAT 277.00 mg/dL High 28.00-217.00 [facility] Comment on above: Performed By: #### L 501.0900, M100.2200, L7000.1800 #### [facility] [address] [place], [address] Urine Cultureon 11-25-2024 URC Culture exhibits no growth. Normal [facility] Comment on above: Performed By: #### L 501.0900, M100.2200, L7000.1800 #### [facility] [address] [place], [place], [address] Chlamydia trachomatis rRNA d etection by probe and target amplification methodOrdered By: Lyssa Aguila on 11-24-2024 C. trachomatis rRNA GEETA+probe Ql (Unsp spec) Negative Negative [facility] Neisseria gonorrhoeae nuclei c acid detection by amplified probe techniqueOrdered By: Lyssa Aguila on 11-24-2024 N. gonorrhoeae DNA GEETA+probe Ql (Unsp spec) Negative Negative [facility] Comment on above: Performed at: =[address] [id number] Director: Patrizia De La Torre MD, Phone: [phone] Inbound Telemarketer Office Visit Reporton 11-24-2024 Inbound Telemarketer Office Visit Report [facility] [address], [address] [place] [address] OFFICE VISIT Date of Service: 11/24/24 MR#: [id number] Acct: [id number] Name: DEMARCUS ABAD Rep #: [id number] : 1990 Provider: SULLY Boudreaux ams Age/Sex: 34/F Location: [facility] Status: Signed Intake Vital Signs 08/23/24 15:14 11/24/24 12:59 Height 5 ft 2 in 5 ft 2 in Weight: 166 lb 168 lb 8 oz BMI 30.3 30.8 BP 119/77 108/74 Intake Visit Reasons: NOB LMP 09/27 Chief Complaint: New OB Heating Element Builder Required: No Is patient in pain?: No Allergies Penicillins Allergy (Unknown, Verified 11/24/24 12:57) Unknown Medications ???Medication ???Instructions ???Recorded ???Confirmed ???Type ferrous sulfate 325 mg (65 mg 325 mg PO DAILY 09/05/23 11/24/24 History iron) tablet (Feosol) multivit-min no.71-iron fum 28 cap PO 11/12/24 11/24/24 History mg-folate no.1 1 mg-dha 300 mg capsule (PNV-Needmore) Last Menstrual Period: 09/27/24 : Yes PFSH PFSH Medical History Hx of varicose veins of lower extremity Depression Nodular goiter HPV (human papilloma virus) infection Thyroid disorder Pre-eclampsia Abnormal glucose Anemia Surgical History History of bunionectomy of right great toe [place] teeth extracted History of colposcopy Family History Mother Hypertension Father Diabetes Aunt Thyroid disorder Maternal- unknown type Social History adopted: No household members: spouse and children housing: house number of children: 2 service: No current occupational status: unemployed current occupation: [employer] pets and animals: Yes (no litter [...] physical activity do you participate in: none [place]/jew: Gnosticism seatbelt use: always do you feel safe [...] 36 live - 6lbs 14oz Female epidural [facility] [place] Delivery Date: 04/30/08 Last Updated by: Manda Aguirre VICE PRESIDENT FOR PHILANTHROPY, VICE PRESIDENT FOR PHILANTHROPY-C Induced to preeclampsia, teen Delivery Date: 08/08/21 [...] 09/27/24 Repo (more content not included)... Normal [facility] Random urine creatinine david urement (mass/volume)Ordered By: Lyssa Aguila on 11-24-2024 Creatinine Unsp time (U) [Mass/Vol] 277.00 mg/dL High 28.00-217.00 [facility] Urine cultureOrdered By: Jose Aguila on 11-24-2024 Bacteria identified Cx Nom (U) Culture exhibits no growth. [facility] Urine protein measurement (m ass/volume)Ordered By: Lyssa Aguila on 11-24-2024 Protein (U) [Mass/Vol] 14.1 mg/dL High 0.0-12.0 [facility] Urine protein/creatinine mas s ratioOrdered By: Lyssa Aguila on 11-24-2024 Protein/Creatinine (U) [Mass ratio] 51 mg/g CRE 0-200 [facility] Serum human chorionic gonado tropin detection for pregnancyOrdered By: Lyssa Aguila on 08-25-2024 HCG ( test) Ql 10 mIU/mL High <4 [facility] Comment on above: hCG levels with Gest ational AgeGestational Age hCG mIU/mL (IU/L)0.2 - 1 week 5 - 501-2 weeks 50 - 5002-3 weeks 100 - 33408-1 weeks 500 - 946765-9 weeks 1000 - 587302-7 weeks 35785 - 100,0006-8 weeks 75185 - 200,0002-3 months 75022 - 100,000 hCG Titer Quant., Serumon HCG QUANT. 10 mIU/mL High 1-3 [facility] Comment on above: Order Comment: PT DI D NOT WANT TO DO DR GALLEGOS ORDERS THAT ARE INTERNAL. Result Comment: hCG levels with Gestational Age Gestational Age hCG mIU/mL (IU/L) 0.2 - 1 week 5 - 50 1-2 weeks 50 - 500 2-3 weeks 100 - 5000 3-4 weeks 500 - 85683 4-5 weeks 1000 - 22291 5-6 weeks 08502 - 100,000 6-8 weeks 92543 - 200,000 2-3 months 40162 - 100,000 Performed By: #### L 501.0900, M100.2200, L7000.1800 #### [facility] [address] [place], [address] Inbound Telemarketer Office Visit Reporton 08-23-2024 Inbound Telemarketer Office Visit Report [facility] [address], [address] [place] [address] OFFICE VISIT Date of Service: 08/23/24 MR#: [id number] Acct: [id number] Name: DEMARCUS ABAD Rep #: [id number] : 1990 Provider: SULLY Boudreaux ams Age/Sex: 34/F Location: [facility] Status: Signed Intake Vital Signs 08/23/24 09:05 [...] PO 08/23/24 08/23/24 History capsule ( DHA) [facility] Medical History Abnormal glucose Anemia HPV [...] Shlomo 36 live - 6# Male epidural [facility] Taye 08/08/21 Emalie 36 live - 6lbs 14oz Female [facility] Vand e Velde Delivery Date: 04/30/08 Last Updated by: Manda Aguirre VICE PRESIDENT FOR PHILANTHROPY, VICE PRESIDENT FOR PHILANTHROPY-C Induced to preeclampsia, teen Delivery Date: 08/08/21 [...] RTO PRN/annual 08/23/24 1608 Date Lyssa Aguila [facility] Cosigner Signature: Date __ (more content not included)... Normal [facility] Serum human chorionic gonado tropin detection for pregnancyOrdered By: Lyssa Aguila on 08-23-2024 HCG ( test) Ql 28 mIU/mL High <4 [facility] Comment on above: hCG levels with Gest ational AgeGestational Age hCG mIU/mL (IU/L)0.2 - 1 week 5 - 501-2 weeks 50 - 5002-3 weeks 100 - 42928-8 weeks 500 - 852012-4 weeks 1000 - 686159-5 weeks 99860 - 100,0006-8 weeks 92208 - 200,0002-3 months 56962 - 100,000 hCG Titer Quant., Serumon HCG QUANT. 28 mIU/mL High 1-3 [facility] Comment on above: Order Comment: viabi lity Result Comment: hCG levels with Gestational Age Gestational Age hCG mIU/mL (IU/L) 0.2 - 1 week 5 - 50 1-2 weeks 50 - 500 2-3 weeks 100 - 5000 3-4 weeks 500 - 83807 4-5 weeks 1000 - 65013 5-6 weeks 37361 - 100,000 6-8 weeks 87218 - 200,000 2-3 months 80219 - 100,000 Performed By: #### L 700.8000 #### [facility] [address] [place], [place], [id number] Laboratory - Chemistry and C hemistry - challengeOrdered By: Denis Galdamez on 03-11-2023 Free T4 [Mass/Vol] 0.96 ng/dL 0.76-1.46 [facility] No Panel InformationOrdered By: Denis Galdamez on 03-11-2023 Free Triiodothyronine (T3) pg/dL 3.2 pg/mL 2.18-3.98 [facility] Thyroid Stimulating Hormone (TSH) 0.41 uIU/mL 0.358-3.74 [facility] Serum or plasma thyroperoxid ase antibody assay (units/volume)Ordered By: Denis Galdamez on 03-11-2023 TPO Ab Qn 10 [IU]/mL 0-34 [facility] Comment on above: Performed at: [address] [id number] Director: Robert Peters PhD, Phone: [phone] PREGUon 09-19-2022 HCG ( test) Ql (U) Negative Normal [facility] ([place]) Comment on above: Performed By: #### P REGU #### [place] [address] [address] test (u) int Not detected Invalid Interpretation Code [facility] ([place]) Comment on above: Performed By: #### P REGU #### [place] [address] [address] Laboratory - Chemistry and C hemistry - challengeon 03-15-2022 Free T4 [Mass/Vol] 0.99 ng/dL 0.76-1.46 [facility] Work Phone: No Panel Informationon 03-15 Free Triiodothyronine (T3) pg/dL 3.3 pg/mL 2.18-3.98 [facility] Work Phone: Thyroid Stimulating Hormone (TSH) 0.34 uIU/mL 0.358-3.74 [facility] Work Phone: CNPRashida 12-27-2020 CNPN Telephone (OBGYWM) DEMARCUS TAMEZ ([id number]) 1990 F Date Time Provider Department 12/27/20 [...] to call patient. Unable to leave message. Your [employer] message sent. Lorenza Zheng RN Allergies As of Date: 12/27/2020 Noted Allergy Reaction BUPROPION 05/16/2016 5 - Intolerance Comments: headache PENICILLINS 05/27/2005 Date Reviewed: 10/30/2020 Reviewed by: Yanique Rodriguez LPN - Fully Assessed Reason for Visit: Early OB Cramping [Other] Primary Visit Diagnosis:Pelvic pain during [O26.899, R10.2] Order(s):HCG QUANTITATIVE [SQHCGQT] Order #: [id number] STANDING Prescriptions as of 12/27/2020 Sig: -1 ORAL Take by mouth. Problem List As Of Date 12/27/2020 Noted Resolved Thyroid goiter [E04.9] 12/30/2014 Anemia [D64.9] 01/16/2015 08/16/2016 Attention and concentration deficit [R41.840] 04/19/2015 Iron deficiency anemia secondary to inadequate *04/19/2015 Encounter Status:Closed by ROBERT AZAR RN on 01/01/21 [place]2020 [facility] (FAMPWS[facility] DEMARCUS TAMEZ ([id number]) 1990 F Date Time Provider Department 11/01/20 [...] [D64.9] Order(s):CBC + DIFF [SQCBCDIF] Order #: [id number] FUTURE IRON + TIBC [SQIRON] Order #: [id number] FUTURE Prescriptions as of 11/01/2020 Sig: -1 ORAL Take by mouth. Problem List As Of Date 11/01/2020 Noted Resolved Thyroid goiter [E04.9] 12/30/2014 Anemia [D64.9] 01/16/2015 08/16/2016 Attention and concentration deficit [R41.840] 04/19/2015 Iron deficiency anemia secondary to inadequate *04/19/2015 Encounter Status:Closed by YANIQUE RODRIGUEZ LPN on 11/01/20 Normal [facility] CBC and Differentialon 10-31 Abs Baso 0.03 k/uL Normal <0.11 [facility] Comment on above: Performed By: #### C BCDIF, CMP #### [place] [place], [place] [address] Abs [place] 0.50 k/uL Normal <0.87 [facility] Comment on above: Performed By: #### C BCDIF, CMP #### [address] [place], [place] [id number] Abs Neut 2.90 k/uL Normal 1.45-7.50 [facility] Comment on above: Performed By: #### C BCDIF, CMP #### [facility] [address] [place], [place] [address] Absolute nRBC <0.01 Normal <0.01 [facility] Comment on above: Performed By: #### C BCDIF, CMP #### [facility] [address] [place], [place] [address] Basophils/100 WBC (Bld) 0.5 % Normal [facility] Comment on above: Performed By: #### C BCDIF, CMP #### [address] [place] [address] [place] [phone] DTYPE Auto Diff Normal [facility] Comment on above: Performed By: #### C BCDIF, CMP #### [place] [phone] Eosinophils (Bld) [#/Vol] 0.12 10*3/uL Normal <0.46 [facility] Comment on above: Performed By: #### C BCDIF, CMP #### [place] [phone] Eosinophils/100 WBC (Bld) 1.9 % Normal [facility] Comment on above: Performed By: #### C BCDIF, CMP #### [place] [phone] Erythrocyte distribution width (RBC) [Ratio] 14.6 % Normal 11.5-15.0 [facility] Comment on above: Performed By: #### C BCDIF, CMP #### [place] [phone] Hematocrit (Bld) [Volume fraction] 37.2 % Normal 36.0-46.0 [facility] Comment on above: Performed By: #### C BCDIF, CMP #### [place] [address] [place] [phone] Hemoglobin (Bld) [Mass/Vol] 11.1 g/dL Low 11.5-15.5 [facility] Comment on above: Performed By: #### C BCDIF, CMP #### [address] [place] [address] [place] [phone] Lymphocytes (Bld) [#/Vol] 2.78 10*3/uL Normal 1.00-4.00 [facility] Comment on above: Performed By: #### C BCDIF, CMP #### [facility] [address] [place], [place] [address] Lymphocytes/100 WBC (Bld) 43.8 % Normal [facility] Comment on above: Performed By: #### C BCDIF, CMP #### [facility] [address] [place], [place] [address] MCH 24.9 pG Low 26.0-34.0 [facility] Comment on above: Performed By: #### C BCDIF, CMP #### [address] [place], [place] [address] MCHC (RBC) [Mass/Vol] 29.8 g/dL Low 30.5-36.0 [facility] Comment on above: Performed By: #### C BCDIF, CMP #### [place] [address] [place] [address] MCV (RBC) [Entitic vol] 83.4 fL Normal 80.0-100.0 [facility] Comment on above: Performed By: #### C BCDIF, CMP #### [address] [place] [place], [place] [address] Monocytes/100 WBC (Bld) 7.9 % Normal [facility] Comment on above: Performed By: #### C BCDIF, CMP #### [address] [place], [place] [address] Neutrophils/100 WBC (Bld) 45.9 % Normal [facility] Comment on above: Performed By: #### C BCDIF, CMP #### [address] [place] [place], [place] [address] NRBCs 0.0 /100 WBC Normal 0 [facility] Comment on above: Performed By: #### C BCDIF, CMP #### [address] [place], [place] [address] Platelet mean volume (Bld) [Entitic vol] 10.3 fL Normal 9.0-12.7 [facility] Comment on above: Performed By: #### C BCDIF, CMP #### [facility] [employer] [address] [place] [address] Platelets (Bld) [#/Vol] 304 10*3/uL Normal 150-400 [facility] Comment on above: Performed By: #### C BCDIF, CMP #### [facility] [address] [place] [address] RBC (Bld) [#/Vol] 4.46 10*6/uL Normal 3.90-5.20 [facility] Comment on above: Performed By: #### C BCDIF, CMP #### [facility] [address] [place] [address] WBC (Bld) [#/Vol] 6.35 10*3/uL Normal 3.70-11.00 [facility] Comment on above: Performed By: #### C BCDIF, CMP #### [address] [place] [place] [address] Jennifer 10-31-2020 [facility] Telephone (FAMWS) DEMARCUS TAMEZ ([id number]) 1990 F Date Time Provider Department 10/31/20 [facility] your [facility] today, we recorded [...] by ANMOL ARGUELLO MA on 10/31/20 Normal [facility] Comp Metabolic Panelon 10-31 Albumin [Mass/Vol] 4.3 g/dL Normal 3.9-4.9 [facility] Comment on above: Performed By: #### C BCDIF, CMP #### [facility] [address] [place], [place] [address] ALP [Catalytic activity/Vol] 57 U/L Normal 34-123 [facility] Comment on above: Performed By: #### C BCDIF, CMP #### [facility] [address] [place], [place] [address] ALT [Catalytic activity/Vol] 13 U/L Normal 7-38 [facility] Comment on above: Performed By: #### C BCDIF, CMP #### [facility] [address] [place], [place] [address] Anion gap [Moles/Vol] 12 mmol/L Normal 9-18 [facility] Comment on above: Performed By: #### C BCDIF, CMP #### [facility] [address] [place], [place] [address] AST [Catalytic activity/Vol] 28 U/L Normal 13-35 [facility] Comment on above: Performed By: #### C BCDIF, CMP #### [facility] [address] [place], [place] [address] Bilirubin [Mass/Vol] mg/dL Low 0.2-1.3 [facility] Comment on above: Performed By: #### C BCDIF, CMP #### [facility] [address] [place] [id number] Calcium [Mass/Vol] 9.3 mg/dL Normal 8.5-10.2 [facility] Comment on above: Performed By: #### C BCDIF, CMP #### [address] [place] [place] [address] Chloride [Moles/Vol] 105 mmol/L Normal 97-105 [facility] Comment on above: Performed By: #### C BCDIF, CMP #### [place] [address] CO2 [Moles/Vol] 23 mmol/L Normal 22-30 [facility] Comment on above: Performed By: #### C BCDIF, CMP #### [address] [place] [place] [address] Creatinine [Mass/Vol] 0.82 mg/dL Normal 0.58-0.96 [facility] Comment on above: Performed By: #### C BCDIF, CMP #### [address] [place] [address] [place] [address] eGFR- Amer. >60 Normal [facility] Comment on above: Performed By: #### C BCDIF, CMP #### [place] [address] eGFR-All Other Races >60 Normal [facility] Comment on above: Result Comment: eGFR [...] Performed By: #### C ERICA CMP #### [facility] [employer] [address], [place] [address] Glucose [Mass/Vol] 76 mg/dL Normal 74-99 [facility] Comment on above: Result Comment: The [place] Diabetes Association (ADA) provides guidance for cutoff [...] Standards of Medical Care in Diabetes 2016, [place] Diabetes Association. Diabetes Care. 2016.39(Suppl 1). Performed By: #### C ERICA CMP #### [facility] [employer] [address], [place] [address] Potassium [Moles/Vol] 3.9 mmol/L Normal 3.7-5.1 [facility] Comment on above: Performed By: #### C BCNAYAN, CMP #### [facility] [employer] [address], [place] [address] Protein [Mass/Vol] 7.0 g/dL Normal 6.3-8.0 [facility] Comment on above: Performed By: #### C BCNAYAN, CMP #### [facility] [address], [place] [address] Sodium [Moles/Vol] 140 mmol/L Normal 136-144 [facility] Comment on above: Performed By: #### C MARYCHUY MALDONADO #### [facility] [address] [place], [place] [id number] Urea nitrogen [Mass/Vol] 11 mg/dL Normal 7-21 [facility] Comment on above: Performed By: #### C BCDIF, CMP #### [facility] [address] [place], [place] [id number] D dimeron 10-31-2020 D dimer Test sent to [facility]. Normal <500 [facility] Comment on above: Result Comment: Acco unt Credited MARGARETE CNOVon 10-30-2020 CNOV Office Visit (FAMPWS) DEMARCUS TAMEZ ([id number]) 1990 F Date Time Provider Department 10/30/20 [...] Thyroid nodu (more content not included)... Normal [facility] CNOVon 09-11-2020 CNOV Office Visit (UCWSTR) DEMARCUS TAMEZ ([id number]) 1990 F Date Time Provider Department 09/11/20 8:45 AM JACEY GALDAMEZ) [facility] During your visit today, we recorded [...] by JACEY GALDAMEZ CNP on 09/11/20 Normal [facility] Vital Signs Date Time Vital Sign Value Performing Clinician Chetan oswald 04-28-2025 10:42-0400 Body height 157.[address] Beatriz Escobar MD Work Phone: [facility] 04-28-2025 10:42-0400 Body mass index (BMI) [Ratio] 34.2 kg/m2 Dr. Beatriz Escobar MD Work Phone: [facility] 04-28-2025 10:42-0400 Body weight 84.[address] Beatriz Escobar MD Work Phone: [facility] 04-28-2025 10:42-0400 Diastolic blood pressure 71 mm[Hg] Dr. Beatriz Escobar MD Work Phone: [facility] 04-28-2025 10:42-0400 Systolic blood pressure 114 mm[Hg] Dr. Beatriz Escobar MD Work Phone: 3(709)882-523259 [place] [address] 04-18-2025 10:56-0400 Body mass index (BMI) [Ratio] 33.5 kg/m2 Dr. Beatriz Escobar MD Work Phone: 9(319)294-080659 [place] [address] 04-18-2025 10:56-0400 Body weight 83.[address] Beatriz Escobar MD Work Phone: 4(736)839-063359 [place] [address] 04-18-2025 10:56-0400 Diastolic blood pressure 71 mm[Hg] Dr. Beatriz Escobar MD Work Phone: 0(399)556-658059 [place] [address] 04-18-2025 10:56-0400 Systolic blood pressure 106 mm[Hg] Dr. Beatriz Escobar MD Work Phone: 5(203)676-824659 [place] [address] 04-02-2025 18:41-0400 Body temperature 97.9 [degF] Dr. Beatriz Escobar MD Work Phone: 9(961)580-865359 [place] [address] 04-02-2025 18:41-0400 Diastolic blood pressure 52 mm[Hg] Dr. Beatriz Escobar MD Work Phone: 3(995)257-088559 [place] [address] 04-02-2025 18:41-0400 Heart rate 75 /min Dr. Beatriz Escobar MD Work Phone: 6(021)066-608159 [place] [address] 04-02-2025 18:41-0400 Respiratory rate 16 /min Dr. Beatriz Escobar MD Work Phone: 2(593)119-187659 [place] [address] 04-02-2025 18:41-0400 SaO2% (BldA) [Mass fraction] 96 % Dr. Beatriz Escobar MD Work Phone: 4(159)403-407759 [place] [address] 04-02-2025 18:41-0400 Systolic blood pressure 94 mm[Hg] Dr. Beatriz Escobar MD Work Phone: 9(696)857-170759 [place] [address] 04-02-2025 18:35-0400 Body height 157.[address] Beatriz Escobar MD Work Phone: 6(693)751-020459 [place] [address] 04-02-2025 18:35-0400 Body mass index (BMI) [Ratio] 33.4 kg/m2 Dr. Beatriz Escobar MD Work Phone: 8(253)683-955659 [place] [address] 04-02-2025 18:35-0400 Body weight 82.[address] Beatriz Escobar MD Work Phone: 4(016)107-765259 [place] [address] 03-22-2025 10:36-0400 Body height 157.[address] Beatriz Escobar MD Work Phone: 8(509)698-964859 [place] [address] 03-22-2025 10:32-0400 Body mass index (BMI) [Ratio] 32.5 kg/m2 Dr. Beatriz Escobar MD Work Phone: 6(607)158-975959 [place] [address] 03-22-2025 10:32-0400 Body weight 80.[address] Beatriz Escobar MD Work Phone: 1(599)696-809759 [place] [address] 03-22-2025 10:32-0400 Diastolic blood pressure 75 mm[Hg] Dr. Beatriz Escobar MD Work Phone: 7(050)701-094459 [place] [address] 03-22-2025 10:32-0400 Systolic blood pressure 111 mm[Hg] Dr. Beatriz Escobar MD Work Phone: 8(013)987-355059 [place] [address] 02-21-2025 11:01-0400 Body height 157.[address] Beatriz Escobar MD Work Phone: 0(381)900-999459 [place] [address] 02-21-2025 11:01-0400 Body mass index (BMI) [Ratio] 31.1 kg/m2 Dr. Beatriz Escobar MD Work Phone: 1(188)888-136359 [place] [address] 02-21-2025 11:01-0400 Body weight 77.[address] Beatriz Escobar MD Work Phone: 2(652)332-689859 [place] [address] 02-21-2025 11:01-0400 Diastolic blood pressure 68 mm[Hg] Dr. Beatriz Escobar MD Work Phone: 2(531)751-971959 [place] [address] 02-21-2025 11:01-0400 Systolic blood pressure 103 mm[Hg] Dr. Beatriz Escobar MD Work Phone: [facility] 01-25-2025 13:59-0400 Body height 157.[address] Beatriz Escobar MD Work Phone: [facility] 01-25-2025 13:59-0400 Body mass index (BMI) [Ratio] 30.5 kg/m2 Dr. Beatriz Escobar MD Work Phone: 9(118)604-553559 [place] [address] 01-25-2025 13:59-0400 Body weight 75.[address] Beatriz Escobar MD Work Phone: 4(413)579-243959 [place] [address] 01-25-2025 13:59-0400 Diastolic blood pressure 73 mm[Hg] Dr. Beatriz Escobar MD Work Phone: 2(392)733-694859 [place] [address] 01-25-2025 13:59-0400 Systolic blood pressure 111 mm[Hg] Dr. Beatriz Escobar MD Work Phone: 8(713)269-907859 [place] [address] 01-10-2025 13:57-0400 Body height 157.[address] Beatriz Escobar MD Work Phone: 5(944)397-850959 [place] [address] 01-10-2025 13:54-0400 Body mass index (BMI) [Ratio] 30.2 kg/m2 Dr. Beatriz Escobar MD Work Phone: [facility] 01-10-2025 13:54-0400 Body weight 75.[address] Beatriz Escobar MD Work Phone: 2(185)539-724653 [place] [address] 01-10-2025 13:54-0400 Diastolic blood pressure 68 mm[Hg] Dr. Beatriz Escobar MD Work Phone: 9(726)311-776059 [place] [address] 01-10-2025 13:54-0400 Systolic blood pressure 114 mm[Hg] Dr. Beatriz Escobar MD Work Phone: 3(791)556-222159 [place] [address] 12-30-2024 13:27-0400 Body height 157.[address] Beatriz Escobar MD Work Phone: 4(557)321-450059 [place] [address] 12-30-2024 13:27-0400 Body mass index (BMI) [Ratio] 30.5 kg/m2 Dr. Beatriz Escobar MD Work Phone: [facility] 12-30-2024 13:27-0400 Body weight 75.[address] Beatriz Escobar MD Work Phone: [facility] 12-30-2024 13:27-0400 Diastolic blood pressure 72 mm[Hg] Dr. Beatriz Escobar MD Work Phone: 1(996)300-068553 [place] [address] 12-30-2024 13:27-0400 Heart rate 71 /min Dr. Beatriz Escobar MD Work Phone: 6(955)816-210659 [place] [address] 12-30-2024 13:27-0400 SaO2% (BldA) [Mass fraction] 97 % Dr. Beatriz Escobar MD Work Phone: 7(824)714-928259 [place] [address] 12-30-2024 13:27-0400 Systolic blood pressure 107 mm[Hg] Dr. Beatriz Escobar MD Work Phone: 3(055)618-084696 [address] 12-27-2024 09:51-0400 Body height 157.[address] Beatriz Escobar MD Work Phone: 1(695)114-804359 [place] [address] 12-27-2024 09:51-0400 Body mass index (BMI) [Ratio] 30.3 kg/m2 Dr. Beatriz Escobar MD Work Phone: 1(143)036-433859 [place] [address] 12-27-2024 09:51-0400 Body weight 75.[address] Beatriz Escobar MD Work Phone: 7(035)116-623053 [place] [address] 12-27-2024 09:51-0400 Diastolic blood pressure 73 mm[Hg] Dr. Beatriz Escobar MD Work Phone: 9(441)464-571459 [place] [address] 12-27-2024 09:51-0400 Systolic blood pressure 115 mm[Hg] Dr. Beatriz Escobar MD Work Phone: 9(470)527-747859 [place] [address] 11-24-2024 12:59-0400 Body height 157.[address] Beatriz Escobar MD Work Phone: [facility] 11-24-2024 12:59-0400 Body mass index (BMI) [Ratio] 30.8 kg/m2 Dr. Beatriz Escobar MD Work Phone: [facility] 11-24-2024 12:59-0400 Body weight 76.[address] Beatriz Escobar MD Work Phone: 4(639)001-389153 [place] [address] 11-24-2024 12:59-0400 Diastolic blood pressure 74 mm[Hg] Dr. Beatriz Escobar MD Work Phone: 6(964)710-401596 [address] 11-24-2024 12:59-0400 Systolic blood pressure 108 mm[Hg] Dr. Beatriz Escobar MD Work Phone: 1(474)487-197559 [place] [address] 08-23-2024 15:14-0500 Body mass index (BMI) [Ratio] 30.3 kg/m2 Dr. Beatriz Escobar MD Work Phone: 8(081)372-122053 [place] [address] 08-23-2024 15:14-0500 Body weight 75.[address] Beatriz Escobar MD Work Phone: 6(061)920-056996 [address] 08-23-2024 15:14-0500 Diastolic blood pressure 77 mm[Hg] Dr. Beatriz Escobar MD Work Phone: 9(899)634-209053 [place] [address] 08-23-2024 15:14-0500 Systolic blood pressure 119 mm[Hg] Dr. Beatriz Escobar MD Work Phone: 0(297)770-672653 [place] [address] 10-29-2022 14:07-0400 Body height 157.[address] Antony Escobar Work Phone: 8(114)088-882896 [address] 10-29-2022 14:07-0400 Body mass index (BMI) [Ratio] 29.6 kg/m2 Dr. Antony Escobar Work Phone: 9(758)885-870053 [place] [address] 10-29-2022 14:07-0400 Body weight 73.[address] Antony Escobar Work Phone: 0(450)560-878053 [place] [address] 04-25-2023 14:07-0400 Diastolic blood pressure 72 mm[Hg] Dr. Antony Escobar Work Phone: [facility] 10-29-2022 14:07-0400 Systolic blood pressure 111 mm[Hg] Dr. Antony Escobar Work Phone: [facility] 09-06-2022 08:06-0500 Blood Pressure Location HOWARD SUPPAN DPM [facility] 09-06-2022 08:06-0500 Body height 157.5 cm HOWARD SUPPAN DPM [facility] 09-06-2022 08:06-0500 Body weight 68.2 kg HOWARD SUPPAN DPM [facility] 09-06-2022 08:06-0500 Body weight 27.49 kg/m2 HOWARD SUPPAN DPM [facility] 09-06-2022 08:06-0500 Diastolic Blood Pressure Non-Invasive 76 1 HOWARD SUPPAN DPM [facility] 09-06-2022 08:06-0500 Heart rate 73 /min HOWARD SUPPAN DPM [facility] 09-06-2022 08:06-0500 Respiratory rate 20 /min HOWARD SUPPAN DPM [facility] 09-06-2022 08:06-0500 Systolic Blood Pressure Non-Invasive 98 1 HOWARD SUPPAN DPM [facility] 07-11-2022 15:11-0500 Body mass index (BMI) [Ratio] 28.9 kg/m2 Dr. Antony Escobar Work Phone: [facility] 07-11-2022 15:11-0500 Body temperature 95.8 [degF] Dr. Antony Escobar Work Phone: [facility] 07-11-2022 15:11-0500 Body weight 71.[address] Antony Escobar Work Phone: [facility] 07-11-2022 15:11-0500 Diastolic blood pressure 73 mm[Hg] Dr. Antony Escobar Work Phone: [facility] 07-11-2022 15:11-0500 Heart rate 65 /min Dr. Antony Escobar Work Phone: [facility] 07-11-2022 15:11-0500 Respiratory rate 18 /min Dr. Antony Escobar Work Phone: [facility] 07-11-2022 15:11-0500 SaO2% (BldA) [Mass fraction] 97 % Dr. Antony Escobar Work Phone: [facility] 07-11-2022 15:11-0500 Systolic blood pressure 106 mm[Hg] Dr. Antony Escobar Work Phone: [facility] Encounters Encounter Date Encounter Type Care Provider Facility Start: 05-26-2025 ambulatory Beatriz Pro lity:[facility] Start: 05-16-2025 End: 05-16-2025 ambulatory Beatriz Escobar Facility:[facility] Start: 05-09-2025 ambulatory Carmelita Westty:[facility] Start: 05-02-2025 ambulatory Beatriz Benton lity:[facility] Start: 04-28-2025 End: 04-28-2025 ambulatory Beatriz Escobar Facility:[facility] Start: 04-26-2025 End: 04-26-2025 ambulatory Manda Clarion Facility:[facility] Start: 04-18-2025 End: 04-18-[address] Beatriz Escobar MD Work Phone: [facility] Start: 04-18-2025 End: 04-18-[address] Carmelita Weeks DO [facility] Work Phone: Start: 04-18-2025 End: 04-18-2025 ambulatory Carmelita Weeks Facility:[facility] Start: 04-03-2025 ambulatory Beatriz Benton lity:[facility] Start: 04-03-2025 Non-patient / Non-visit Dr. William knight MD -[facility] Work Phone: Start: 04-02-2025 End: 04-02-[address] Beatriz Escobar MD Work Phone: -[facility] Start: 04-02-2025 End: 04-02-[address] William Ceballos MD -[facility] Work Phone: Start: 03-22-2025 End: 03-22-2025 Patient encounter procedure Manda GAYTAN -[facility] Work Phone: Start: 03-22-2025 End: 03-22-[address] Beatriz Escobar MD Work Phone: -[facility] Start: 03-01-2025 End: 03-01-2025 ambulatory ROCKTONPAMELA Dae [facility] Start: 02-21-2025 End: 02-21-2025 Patient encounter procedure Lyssa Aguila CNM -[facility] Work Phone: Start: 02-21-2025 End: 02-21-[address] Beatriz Escobar MD Work Phone: -[facility] Start: 02-21-2025 End: 02-21-2025 ambulatory Beatriz Escobar Facility:[facility] Start: 02-08-2025 End: 02-08-2025 ambulatory MANDA AGUIRRE [facility] Start: 01-25-2025 End: 01-25-[address] Gaby Trimble MD -[facility] Work Phone: Start: 01-25-2025 End: 01-25-[address] Beatriz Escobar MD Work Phone: -[facility] Start: 01-17-2025 End: 01-17-[address] Beatriz Escobar MD Work Phone: -[facility] Start: 01-17-2025 End: 01-17-[address] Denis Galdamez MD -[facility] Start: 01-17-2025 End: 01-17-2025 ambulatory Denis Galdamez Facility:[facility] Start: 01-10-2025 End: 01-10-2025 Patient encounter procedure Manda Aguirre NP-C -[facility] Work Phone: Start: 01-10-2025 End: 01-10-[address] Beatriz Escobar MD Work Phone: -[facility] Start: 12-30-2024 End: 12-30-[address] Denis Galdamez MD -[facility] Work Phone: Start: 12-30-2024 End: 12-30-[address] Beatriz Escobar MD Work Phone: [facility] Work Phone: Start: 12-27-2024 End: 12-27-2024 Patient encounter procedure Manda Aguirre NP-C -[facility] Work Phone: Start: 12-27-2024 End: 12-27-[address] Beatriz Escobar MD Work Phone: [facility] Work Phone: Start: 12-27-2024 End: 12-27-2024 ambulatory Beatriz Escobar Facility:[facility] Start: 11-24-2024 End: 11-24-[address] Beatriz Escobar MD Work Phone: [facility] Work Phone: Start: 11-24-2024 End: 11-24-2024 Patient encounter procedure Lyssa Aguila CNM -[facility] Work Phone: Start: 11-24-2024 End: 11-24-2024 Patient encounter procedure Lyssa Aguila CNM -[facility] Work Phone: Start: 11-24-2024 End: 11-24-[address] Beatriz Escobar MD Work Phone: [facility] Work Phone: Start: 11-24-2024 End: 11-24-2024 ambulatory [facility] Facility:[facility] Start: 08-25-2024 End: 08-25-2024 Patient encounter procedure Lyssa Aguila CNM -[facility] Start: 08-25-2024 End: 08-25-2024 ambulatory [facility] Facility:[facility] Start: 08-23-2024 End: 08-23-2024 Patient encounter procedure Lyssa WARD -[facility] Work Phone: Start: 08-23-2024 End: 08-23-2024 ambulatory [facility] Facility:[facility] Start: 08-23-2024 End: 08-23-2024 Patient encounter procedure Lyssa Aguila CNM -[facility] Start: 08-23-2024 End: 08-23-2024 ambulatory [place] Shawn Facility:[facility] Start: 03-11-2023 End: 03-11-2023 ambulatory [facility] Work Phone: Start: 03-11-2023 End: 03-11-2023 Patient encounter procedure [facility] Start: 10-29-2022 End: 10-29-[address] Antony Escobar Work Phone: [facility] Work Phone: Start: 10-29-2022 End: 10-29-[address] Antony Escobar Work Phone: [facility]-Laboratory, Spec[facility] Start: 10-29-2022 End: 10-29-[address] Antony Escobar Work Phone: [facility] Start: 09-19-2022 End: 09-19-2022 ambulatory HOWARD N ALAINA DPM Facility:[facility] Start: 09-06-2022 End: 09-07-2022 ambulatory HOWARD N SUPPRADHA DPM Facility:[facility] Start: 09-06-2022 End: 09-06-2022 Admission to [facility] HOWARD Sears KAITRADHA DPM [facility] Start: 07-11-2022 End: 07-11-[address] Antony Escobar Work Phone: [facility] Start: 03-15-2022 End: 03-15-2022 ambulatory [facility] Work Phone: Start: 03-15-2022 End: 03-15-2022 Patient encounter procedure [facility]-Laboratory, [facility] Start: 03-14-2022 End: 03-14-2022 ambulatory [facility] Work Phone: Start: 03-14-2022 End: 03-14-2022 Patient encounter procedure [facility]-Ultrasound, [facility] Procedures Date Procedure Procedure Detail Performing [...] HCV Quant by PCR testing - HCVPCR #[id number] Non Reactive: < 0.8 Equivocal: >/= 0.8 [...] Date Care Activity Detail Author Start: 04-28-2025 [facility] Start: 04-28-2025 End: 04-28-2025 Patient encounter procedure Advanced maternal age (AMA) in -[facility] Work Phone: Start: 04-26-2025 Patient encounter procedure Registered Clinical -Laboratory Work Phone: Start: 04-02-2025 Nonstress test [facility] Start: 04-02-2025 Obstetric monitoring [facility] Start: 04-02-2025 Vital signs measurements [facility] Start: 04-02-2025 [facility] Start: 04-02-2025 Patient discharge [facility] Start: 03-22-2025 Measurement of glucose 2 hours after glucose challenge for glucose tolerance test [facility] Start: 03-22-2025 Serologic test for syphilis [facility] Start: 03-22-2025 [facility] Start: 02-21-2025 CBC W Auto Differential panel - Blood [facility] Start: 01-10-2025 [facility] Start: 12-27-2024 CBC W Auto Differential panel - Blood [facility] Start: 12-27-2024 Comprehensive metabolic 1999 panel - Serum or Plasma [facility] Start: 12-27-2024 Hemoglobin A1c/Hemoglobin.total in Blood [facility] Start: 12-27-2024 Hepatitis C antibody measurement [facility] Start: 12-27-2024 Rubella IgG measurement [facility] Start: 12-27-2024 Serologic test for syphilis [facility] Start: 12-27-2024 Thyroid stimulating hormone measurement [facility] Start: 12-27-2024 [facility] Start: 12-27-2024 Procedure [facility] Start: 10-29-2022 Liquid based cervical cytology screening [facility] Alanine aminotransfe rase [Enzymatic activity/volume] in Serum or Plasma [facility] Albumin [Mass/volume ] in Serum or Plasma [facility] Alkaline phosphatase [Enzymatic activity/volume] in Serum or Plasma [facility] Anion gap in Serum or Plasma [facility] Bilirubin, total measurement [facility] BUN/Creatinine ratio [facility] Calcium [Mass/volume ] in Serum or Plasma [facility] Carbon dioxide, tota l [Moles/volume] in Central venous blood [facility] CBC W Auto Different ial panel - Blood [facility] CBC W Auto Different ial panel - Blood [facility] Chlamydia deoxyribon ucleic acid detection [facility] Comprehensive metabo lic 1999 panel - Serum or Plasma [facility] Creatinine [Mass/vol ume] in Serum or Plasma [facility] Erythrocyte mean cor puscular volume determination [facility] Erythrocyte mean cor puscular volume determination [facility] Glucose [Mass/volume ] in Serum or Plasma [facility] Hematocrit [Volume F raction] of Blood [facility] Hematocrit [Volume F raction] of Blood [facility] Hemoglobin [Mass/vol ume] in Blood [facility] Hemoglobin [Mass/vol ume] in Blood [facility] Hemoglobin A1c/Hemoglobin.total in Blood [facility] Hepatitis B virus elmore rface Ag [Presence] in Serum [facility] Hepatitis C antibody measurement [facility] Leukocytes [#/volume ] in Blood [facility] Leukocytes [#/volume ] in Blood [facility] Mean corpuscular hem oglobin concentration determination [facility] Mean corpuscular hem oglobin concentration determination [facility] Mean corpuscular hem oglobin determination [facility] Mean corpuscular hem oglobin determination [facility] Measurement of renal function [facility] Neutrophil count [facility] Neutrophil count [facility] Neutrophil percent differential count [facility] Neutrophil percent differential count [facility] Path report.final Dx Spec [facility] Patient Education Kick Counts ED False Labor OB Triage: Return to Hospital or Notify Physician if you Experience: [facility] Work Phone: Platelets [#/volume] in Blood [facility] Platelets [#/volume] in Blood [facility] Potassium measurement [facility] Protein/Creatinine [ Ratio] in Urine [facility] Red blood cell count [facility] Red blood cell count [facility] Red cell distributio n width determination [facility] Red cell distributio n width determination [facility] Rubella IgG measurement [facility] Serologic test for syphilis [facility] Serum chloride measurement [facility] Sodium measurement [facility] T4 free measurement [facility] T4 free measurement [facility] T4 free measurement [facility] Thyroid stimulating hormone measurement [facility] Thyroid stimulating hormone measurement [facility] Thyroid stimulating hormone measurement [facility] Thyroid stimulating hormone measurement [facility] Thyroperoxidase Ab [Units/volume] in Serum or Plasma [facility] Total protein measurement [facility] Triiodothyronine, fr ee measurement [facility] Triiodothyronine, fr ee measurement [facility] Triiodothyronine, fr ee measurement [facility] Urea nitrogen [Mass/ volume] in Serum or Plasma [facility] P[place] Date Payer Category Payer Self-pay [id number] 2024 Unknown [id number] 2022 Unknown [id number] 1990 Unknown [id number] 2.16.840.1.091655.3.579.2.627 1990 Unknown [id number] 2.16.840.1.074613.3.579.2.627 1990 Unknown [id number] 2.16.840.1.341261.3.579.2.479 1990 Unknown [id number] 2.16.840.1.939708.3.579.2.479 Unknown [facility] [id number] Unknown [id number] 2.16.840.1.459942.3.579.2.462 Unknown [id number] 2.840.1.654307.3.579.2.462 Unknown [id number] 2.16840.1.062393.3.579.2.462 Unknown [id number] 2.16840.1.193424.3.579.2.462 Unknown [id number] 2.16840.1.955189.3.579.2.462 Unknown [id number] 2.16.840.1.974495.3.579.2.462 Unknown [id number] 2.16840.1.877559.3.579.2.462 Unknown [id number] 2.16840.1.770480.3.579.2.462 Unknown [id number] 2.16840.1.010880.3.579.2.462 Unknown [id number] 2.16840.1.324070.3.579.2.462 Unknown [id number] 2.16.840.1.564258.3.579.2.462 Unknown [id number] 2.16.840.1.229427.3.579.2.462 Unknown [id number] 2.16.840.1.376894.3.579.2.462 Unknown [id number] 2.16.840.1.102866.3.579.2.462 Unknown [id number] 2.16.840.1.007197.3.579.2.462 Unknown [id number] 2.16.840.1.690436.3.579.2.462 Unknown [id number] 2.16.840.1.501427.3.579.2.462 Unknown [id number] 2.16.840.1.305942.3.579.2.462 Unknown [id number] 2.16.840.1.885882.3.579.2.462 Unknown [id number] 2.16.840.1.564034.3.579.2.462 Unknown [id number] 2.16.840.1.907135.3.579.2.462 Unknown [id number] 2.16.840.1.032728.3.579.2.462 Unknown [id number] 2.16.840.1.714003.3.579.2.462 Unknown [id number] 2.16.840.1.793714.3.579.2.462 Social History Date Type Detail Facility Start: 09-19-2021 End: 10-29-2022 Tobacco smoking status DCIS Unknown if ever smoked [facility] Start: 1990 Sex Assigned At Female [facility] Start: 09-06-2022 End: 11-12-2024 Tobacco smoking status Never smoked tobacco (finding) [facility] Sex Female [facility] Functional Status Date Assessment Result Facility 09-06-2022 Functional Status Sensory Deficits None [facility] Clinical Notes 09-11-2020 to 04-18-2025 Note Date & Type Note Facility 04-18-2025 Progress note [facility] 03-22-2025 Progress note [facility] 01-10-2025 Evaluation note Diagnosis Onset Date Resolution [...] thyroid nodule chronic Octobe r 2024 10:40am [facility] Work Phone: 1(768) 264-743506-23-2025 Evaluation note* Diagnosis Onset Date Resolution Status [...] Trauma during acute S eptember 2024 6:20pm [facility] Work Phone: 1(640) 536-324705-21-2025 Evaluation note* Diagnosis Onset Date Resolution Status [...] Nodular goiter chronic December 27, 2024 9:40am [facility] Work Phone: 1(361) 561-715905-21-2025 Evaluation note* Diagnosis Onset Date Resolution Status [...] Hot thyroid nodule acute December 062024 1:26pm [facility] Work Phone: 1(979) 376-880505-21-2025 Evaluation note* Diagnosis Onset Date Resolution Status [...] Nodular goiter chronic January 10, 2025 1:49pm [facility] Work Phone: 1(343) 390-147505-21-2025 Evaluation note* Diagnosis Onset Date Resolution Status [...] Thyroid nodule resolved January 25, 2025 1:51pm [facility] Work Phone: 1(417) 912-750905-21-2025 Evaluation note* Diagnosis Onset Date Resolution Status [...] thyroid nodule chronic February 21, 2025 10:57am [facility] Work Phone: 1(412) 969-625805-21-2025 Evaluation note* Diagnosis Onset Date Resolution Status [...] 10:18am Hot thyroid nodule chronic 2024 10:18am [facility] Work Phone: 1(385) 417-317305-21-[address] [facility] [address] [place] [address], [address] [place] [address] OFFICE VISIT Date of Service: 11/24/24 MR#: [id number] Acct: [id number] Name: DEMARCUS ABAD Rep #: [id number] : 1990 Provider: SULLY Aguila Age/Sex: 34/F Location: [facility] Status: Signed Intake Vital Signs 08/23/24 15:14 11/24/24 12:59 Height 5 ft 2 in 5 ft 2 in Weight: 166 lb 168 lb 8 oz BMI 30.3 30.8 BP 119/77 108/74 Intake Visit Reasons: NOB LMP 09/27 Chief Complaint: New OB Heating Element Builder Required: No Is patient in pain?: No Allergies Penicillins Allergy (Unknown, Verified 11/24/24 12:57) Unknown Medications ?Medication ?Instructions ?Recorded ?Confirmed ?Type ferrous sulfate 325 mg (65 mg 325 mg PO DAILY 09/05/23 11/24/24 History iron) tablet (Feosol) multivit-min no.71-iron fum 28 cap PO 11/12/24 5 History mg-folate no.1 1 mg-dha 300 mg capsule (PNV-Needmore) Last Menstrual Period: 09/27/24 : Yes PFSH PFSH Medical History Hx of varicose veins of lower extremity Depression Nodular goiter HPV (human papilloma virus) infection Thyroid disorder Pre-eclampsia Abnormal glucose Anemia Surgical History History of bunionectomy of right great toe [place] teeth extracted History of colposcopy Family History Mother Hypertension Father Diabetes Aunt Thyroid disorder Maternal- unknown type Social History adopted: No household members: spouse and children housing: house number of children: 2 service: No current occupational status: unemployed current occupation: [employer] pets and animals: Yes (no litter [...] physical activity do you participate in: none [place]/jew: Gnosticism seatbelt use: always do you feel safe [...] Shlomo 36 live - 6# Male epidural [facility] Taye 08/08/21 Emalie 36 live - 6lbs 14oz Female ep idural [facility] Edda Veljaime Delivery Date: 04/30/08 Last Updated by: Manda Aguirre VICE PRESIDENT FOR PHILANTHR[employer], VICE PRESIDENT FOR PHILANTHROPY-C Induced to preeclampsia, teen Delivery Date: 08/08/21 [...] Thyroid dysfunction (Thyroid nodule), Drug/latex allergies/reactions (PCN), Materials Development 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 Author Type: [...] suspect is musculoskeletal. Get (more content not included)...[facility]03-08-2021 NoteHNO ID: [id number] Author: Jacey Galdamez Service: ? Author Type: Nurse Practitioner Type: Progress Notes Filed: 09/11/2020 9:25 AM Note Text: Subjective Patient triaged in [facility] care. Patient presenting with intermittent dizziness, left chest pain, left arm numbness for months. Denies cardiac history. Discussed limitations of express care, I will refer to family medicine. Patient appears in on distress today. I advised if s/s become severe needs to go to ER.[facility] note Future Appointments [facility] Evaluation noteNo assessment information available [facility] Work Phone: Evaluation note* Diagnosis Onset Date Resolution Status Nodular goiter acute Encounter for routine gynecological examination noneactive [facility] Work Phone: History and physical note [facility] Medical Records Department [address] [place] [address] OB Triage Physician Note 04/03/25 1535 MR#: [id number] Acct: [id number] Name: DEMARCUS ABAD Rep #:[id number] : 1990 35 From: William Ceballos MD PCP: Dr. Beatriz Escobar MD Status :DEP CLI Y Location: [facility] HPI - General HPI Narrative DEMARCUS ABAD, [...] 1 mg-dha 300 mg 1 cap capsule (PNV-Needmore) methimazole 5 mg tablet 2.5 mg (1/2 x 5 mg) PO .ever y 01/17/25 03/30/25 08:00 Rx other day #15 tabs 2.5 mg Allergy/AdvReac Type Severity Reaction Status Date / Time Penicillins Allergy Unknown Unknown Verified 04/02/25 18:30 Family History Mother Hypertension Father Diabetes Aunt Thyroid disorder Maternal- unknown type Surgical History History of bunionectomy of right great toe [place] teeth extracted History of colposcopy Social History adopted: No household members: spouse and children housing: house number of children: 2 current occupational status: unemployed current occupation: [employer] pets and animals: Yes (no litter [...] physical activity do you participate in: none mad[place]/jew: Gnosticism seatbelt use: always do you feel safe at home: Yes 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 Date Name GA/Weeks Outcome Route Bth Weight Infant Gen Labor Lgth Anesthesia Del Locatn Provider FOB Unknown 08/2024 6 spontaneous 04/30/08 Shlomo 36 live - 6# Male epidural [facility] Taye 08/08/21 Emalie 36 live - 6lbs 14oz Female ep idural [facility] [place]de Delivery Date: 04/30/08 Last Updated by: Manda Aguirre VICE PRESIDENT FOR PHILANTHR[employer], VICE PRESIDENT FOR PHILANTHR[employer]-C Induced to preeclampsia, teen Delivery Date: 08/08/21 [...] G ood FM. Discussed managing sciatic pain. [facility] [place] NST FHR Rate Baby A NST Reactive:: [...] MD; Dr. William Ceballos MD ~ S[facility] Author William akilah [facility] Note Date/Time April 03, 2025 3:40pm [facility] Medical Records Department [address] [place] [address] OB Triage Physician Note 04/03/25 1535 MR#: [id number] Acct: [id number] Name: DEMARCUS ABAD Rep #:[id number] : 1990 35 From: William Ceballos MD PCP: Dr. Beatriz Escobar MD Status :[facility] Y Location: [facility] HPI - General HPI Narrative DEMARCUS ABAD, [...] 1 mg-dha 300 mg 1 cap capsule (PNV-Needmore) methimazole 5 mg tablet 2.5 mg (1/2 x 5 mg) PO .ever y 01/17/25 03/30/25 08:00 Rx other day #15 tabs 2.5 mg Allergy/AdvReac Type Severity Reaction Status Date / Time Penicillins Allergy Unknown Unknown Verified 04/02/25 18:30 Family History Mother Hypertension Father Diabetes Aunt Thyroid disorder Maternal- unknown type Surgical History History of bunionectomy of right great toe [place] teeth extracted History of colposcopy Social History adopted: No household members: spouse and children housing: house number of children: 2 current occupational status: unemployed current occupation: [employer] pets and animals: Yes (no litter [...] physical activity do you participate in: none [place]/jew: Gnosticism seatbelt use: always do you feel safe [...] Shlomo 36 live - 6# Male epidural [facility] Taye 08/08/21 Emalie 36 live - 6lbs 14oz Female ep idural [facility] [place] Delivery Date: 04/30/08 Last Updated by: Manda Aguirre VICE PRESIDENT FOR PHILANTHROPY, VICE PRESIDENT FOR PHILANTHR[employer]-C Induced to preeclampsia, teen Delivery Date: 08/08/21 [...] MD; Dr. William Ceballos MD ~ Signed [facility] Work Phone: Hospital course Narrative No data available for this section [facility] Hospital Discharge instructions No data available for this section [facility] Progress note No data available for this section [facility] Progress note Author Lyssa Aguila [facility] Note Date/Time November 24, 2024 1:35p m [facility] [address], [address] [place] [address] OFFICE VISIT Date of Service: 11/24/24 MR#: [id number] Acct: [id number] Name: DEMARCUS ABAD Rep #: [id number] : 1990 Provider: SULLY Aguila Age/Sex: 34/F Location: [facility] Status: Signed Intake Vital Signs 08/23/24 15:14 11/24/24 12:59 Height 5 ft 2 in 5 ft 2 in Weight: 166 lb 168 lb 8 oz BMI 30.3 30.8 BP 119/77 108/74 Intake Visit Reasons: NOB LMP 09/27 Chief Complaint: New OB Heating Element Builder Required: No Is patient in pain?: No Allergies Penicillins Allergy (Unknown, Verified 11/24/24 12:57) Unknown Medications ?Medication ?Instructions ?Recorded ?Confirmed ?Type ferrous sulfate 325 mg (65 mg 325 mg PO DAILY 09/05/23 11/24/24 History iron) tablet (Feosol) multivit-min no.71-iron fum 28 cap PO 11/12/24 5 History mg-folate no.1 1 mg-dha 300 mg capsule (PNV-Needmore) Last Menstrual Period: 09/27/24 : Yes PFSH PFSH Medical History Hx of varicose veins of lower extremity Depression Nodular goiter HPV (human papilloma virus) infection Thyroid disorder Pre-eclampsia Abnormal glucose Anemia Surgical History History of bunionectomy of right great toe [place] teeth extracted History of colposcopy Family History Mother Hypertension Father Diabetes Aunt Thyroid disorder Maternal- unknown type Social History adopted: No household members: spouse and children housing: house number of children: 2 service: No current occupational status: unemployed current occupation: [employer] pets and animals: Yes (no litter [...] physical activity do you participate in: none [place]/jew: Gnosticism seatbelt use: always do you feel safe [...] Shlomo 36 live - 6# Male epidural [facility] Taye 08/08/21 Emalie 36 live - 6lbs 14oz Female ep idural [facility] [place] Delivery Date: 04/30/08 Last Updated by: Manda Aguirre VICE PRESIDENT FOR PHILANTHROPY, VICE PRESIDENT FOR PHILANTHROPY-C Induced to preeclampsia, teen Delivery Date: 08/08/21 [...] Thyroid dysfunction (Thyroid nodule), Drug/latex allergies/reactions (PCN), Materials Development 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 Neg colp wo bx per RR at [facility] 05/2020 Orders: Orders CBC W/Diff, Automated [...] to patient and patient chose: NIPT 11/24/24 3054 <Electronically signed by Lyssa preston CNM> Date _ Lyssa Aguila CNM Cosigner Signature: Date (if applicable) CC: ~ [facility] Work Phone: Progress note Author Manda Aguirre [facility] Note Date/Time March 22, 2025 10:55am [facility] [address], [address] [place] [address] OFFICE VISIT Date of Service: 03/22/25 MR#: [id number] Acct: [id number] Name: DEMACRUS ABAD Rep #: [id number] : 1990 Provider: LUCILA Aguirre Age/Sex: 35/F Location: [facility] Status: Signed Intake Vital Signs 01/25/25 13:59 02/21/25 11:01 03/22/25 10:32 03/22/25 10:36 Height 5 ft 2 in 5 ft 2 in 5 ft 2 in 5 ft 2 in Weight: 178 lb 1 oz BMI 32.5 BP 111/75 Intake Visit Reasons: 24wk ob Chief Complaint: 24 Week OB Heating Element Builder Required: No Is patient in pain?: No Allergies Penicillins Allergy (Unknown, Verified 03/22/25 10:35) Unknown Medications ?Medication ?Instructions ?Recorded ?Confirmed ?Type ferrous sulfate 325 mg (65 mg 325 mg PO DAILY 09/05/23 03/22/25 History iron) tablet (Feosol) multivit-min no.71-iron fum 28 cap PO 11/12/24 5 History mg-folate no.1 1 mg-dha 300 mg capsule (PNV-Needmore) methimazole 5 mg tablet 2.5 mg (1/2 [...] History of bunionectomy of right great toe [place] teeth extracted History of colposcopy Family History Mother Hypertension Father Diabetes Aunt Thyroid disorder Maternal- unknown type Social History adopted: No household members: spouse and children housing: house number of children: 2 current occupational status: unemployed current occupation: [employer] pets and animals: Yes (no litter [...] physical activity do you participate in: none [place]/jew: Gnosticism seatbelt use: always do you feel safe at home: Yes 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 Date Name GA/Weeks Outcome Route Bth Weight Gen Labor Lgth Anesthesia Del Locatn Provider FOB Unknown 08/2024 6 spontaneous 04/30/08 Shlomo 36 live - 6# Male epidural [facility] Taye 08/08/21 Emalie 36 live - 6lbs 14oz Female ep idural [facility] [place] Delivery Date: 04/30/08 Last Updated by: Manda Aguirre VICE PRESIDENT FOR PHILANTHROPY, VICE PRESIDENT FOR PHILANTHROPY-C Induced to preeclampsia, teen Delivery Date: 08/08/21 [...] Symptoms of Preeclampsia, Infant Feeding No , [place] Education and Family Medical Leave or Disability [...] 1056 <Electronically signed by Manda Hasting s VICE PRESIDENT FOR PHILANTHROPY VICE PRESIDENT FOR PHILANTHROPY-C> Date _ Mandamal Thomass VICE PRESIDENT FOR PHILANTHROPY VICE PRESIDENT FOR PHILANTHROPY-C Cosigner Signature: Date (if applicable) CC: ~ [facility] Work Phone: Progress note Author Carmelita [facility] Note Date/Time April 18, 2025 1 1:47am [facility] [address] [place] [address], [address] [place] [address] OFFICE VISIT Date of Service: 04/18/25 MR#: [id number] Acct: [id number] Name: DEMARCUS ABAD Rep #: [id number] : 1990 Provider: Dr. 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 Required: No Is patient in pain?: No Allergies Penicillins Allergy (Unknown, Verified 04/18/25 10:56) Unknown Medications ?Medication ?Instructions ?Recorded ?Confirmed ?Type multivit-min no.71-iron fum 28 1 cap PO DAILY 11/12/24 04/18/25 History mg-folate no.1 1 mg-dha 300 mg capsule (PNV-Needmore) methimazole 5 mg tablet 2.5 mg (1/2 [...] History of bunionectomy of right great toe [place] teeth extracted History of colposcopy Family History Mother Hypertension Father Diabetes Aunt Thyroid disorder Maternal- unknown type Social History adopted: No household members: spouse and children housing: house number of children: 2 current occupational status: unemployed current occupation: [employer] pets and animals: Yes (no litter [...] physical activity do you participate in: none [place]/jew: Gnosticism seatbelt use: always do you feel safe at home: Yes 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 Date Name GA/Weeks Outcome Route Bth Weight Infant Gen Labor Lgth Anesthesia Del Locatn Provider FOB Unknown 08/2024 6 spontaneous 04/30/08 Shlomo 36 live - 6# Male epidural [facility] Taye 08/08/21 Emalie 36 live - 6lbs 14oz Female ep idural [facility] [place] Delivery Date: 04/30/08 Last Updated by: Manda Aguirre VICE PRESIDENT FOR PHILANTHROPY, VICE PRESIDENT FOR PHILANTHROPY-C Induced to preeclampsia, teen Delivery Date: 08/08/21 [...] and Symptoms of Preeclampsia, Feeding No , Education and Family Medical [...] Cosigner Signature: Date (if applicable) CC: ~ 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) Reason for Visit Nodular goiter Encounter for [...] section and content) DATE CREATED AUTHOR 08/26/2021 [facility] DATE CREATED AUTHOR AUTHOR'S ORGANIZ ATION 09/23/2022 [facility] ([place] DATE CREATED AUTHOR AUTHOR'S ORGANIZ ATION 03/03/2025 [facility] DATE CREATED AUTHOR AUTHOR'S ORGANIZ ATION 05/18/2025 [facility] Goals (unrecognized section and content) Type [...] Role: Primary Care Physician Address: Address: [address] [place] [address]- Care Team Related Persons Name: MEDARDO ABAD Address: Home [address] [place] [address] Care Teams (unrecognized sec tion and content) [...] 2024 End: December 27, 2024 Manda Aguirre VICE PRESIDENT FOR PHILANTHROPY, VICE PRESIDENT FOR PHILANTHROPY-C Attending Provider Active Start: December 27, 2024 End: December 27, 2024 Team Status: Active Member Role Status Dates Dr. Beatriz Escobar MD Primary Care Provider Acti ve Start: December 27, 2024 Manda Aguirre VICE PRESIDENT FOR PHILANTHROPY, VICE PRESIDENT FOR PHILANTHROPY-C Attending Provider Active Start: December 27, 2024 Manda Aguirre VICE PRESIDENT FOR PHILANTHROPY, VICE PRESIDENT FOR PHILANTHROPY-C Referring Provider Active Start: December 27, 2024 [...] 2024 End: December 27, 2024 Manda Aguirre VICE PRESIDENT FOR PHILANTHROPY, VICE PRESIDENT FOR PHILANTHROPY-C Attending Provider Active Start: December 27, 2024 End: December 27, 2024 Team Status: Inactive Member Role/Relationship Status Dates Dr. Beatriz Escobar MD Primary Care Provider Acti ve Start: December 27, 2024 End: December 27, 2024 Manda Aguirre VICE PRESIDENT FOR PHILANTHROPY, VICE PRESIDENT FOR PHILANTHROPY-C Attending Provider Active Start: December 27, 2024 End: December 27, 2024 Manda Aguirre VICE PRESIDENT FOR PHILANTHROPY, VICE PRESIDENT FOR PHILANTHROPY-C Referring Provider Active Start: December 27, 2024 [...] End: January 10, 2025 Manda Aguirre NP, VICE PRESIDENT FOR PHILANTHROPY-C Attending Provider Active Start: January 10, 2025 [...] 2025 End: March 22, 2025 Manda Aguirre VICE PRESIDENT FOR PHILANTHROPY, VICE PRESIDENT FOR PHILANTHROPY-C Attending Provider Active Start: March 22, 2025 [...] 2024 End: December 27, 2024 Manda Aguirre VICE PRESIDENT FOR PHILANTHROPY, VICE PRESIDENT FOR PHILANTHROPY-C Attending physician Active Start: December 27, 2024 End: December 27, 2024 Team Status: Inactive Member Role/Relationship Status Dates Dr. Beatriz Escobar MD Primary care physician Act rhys Start: December 27, 2024 End: December 27, 2024 Manda Aguirre VICE PRESIDENT FOR PHILANTHROPY, VICE PRESIDENT FOR PHILANTHROPY-C Attending physician Active Start: December 27, 2024 End: December 27, 2024 Manda Aguirre VICE PRESIDENT FOR PHILANTHROPY, VICE PRESIDENT FOR PHILANTHROPY-C Referring Provider Active Start: December 27, 2024 [...] 2025 End: January 10, 2025 Manda Aguirre VICE PRESIDENT FOR PHILANTHROPY, VICE PRESIDENT FOR PHILANTHROPY-C Attending physician Active Start: January 10, 2025 [...] 2025 End: March 22, 2025 Manda Aguirre VICE PRESIDENT FOR PHILANTHROPY, VICE PRESIDENT FOR PHILANTHROPY-C Attending physician Active Start: March 22, 2025 [...] 2025 End: January 10, 2025 Manda Aguirre VICE PRESIDENT FOR PHILANTHROPY, VICE PRESIDENT FOR PHILANTHROPY-C Attending physician Active Start: January 10, 2025 [...] 2025 End: March 22, 2025 Manda Aguirre VICE PRESIDENT FOR PHILANTHROPY, VICE PRESIDENT FOR PHILANTHROPY-C Attending physician Active Start: March 22, 2025 [...] rhys Start: April 26, 2025 Manda Aguirre VICE PRESIDENT FOR PHILANTHROPY, VICE PRESIDENT FOR PHILANTHROPY-C Attending physician Active Start: April 26, 2025 Manda Aguirre VICE PRESIDENT FOR PHILANTHROPY, VICE PRESIDENT FOR PHILANTHROPY-C Referring Provider Active Start: April 26, 2025 [...] BE BASED ON THE PRIMARY CLINICAL RECORDS. [facility] provides no warranty or guarantee of the accuracy or completeness of information in this document.
--- OUTSIDE RECORDS SUMMARY | 2025-06-26 21:57 | XMS RPT_ITS | CCD ---
Author Organization [facility] Care Team Providers Care [employer] Manager Name Role Phone SHAWN JOHNSON, DR HENDERSON Primary Care Physician ALAINA HATHAWAYM, HOWARD Sears Attending Unavailable SHAWN JOHNSON, DR HENDERSON Primary Care HOWARD Johnston DPM Attending Unavailable SHAWN JOHNSON, DR HENDERSON Primary Care Dr. Antony Tello Primary Care Provider Dr. Antony Escobar Referring Provider Dr. Denis Galdamez Attending Provider [phone] Carmelita Weeks Attending Provider Dr. Beatriz Escobar MD Primary Care Provider Lyssa Aguila CNM Attending Provider [phone] Lyssa Aguila CNM Referring Provider [phone] Dr. Beatriz Escobar MD Referring Provider [phone] Dr. Beatriz Escobar MD Primary Care Provider [...] AGUIRRE Referring Unavailable Shawn JOHNSON, Dr. Henderson [facility] Physicia n Shawn JOHNSON, Dr. Henderson Referring Provider Carla MEDICAL ASSISTANT FLOAT-CManda Attending Physician [phone] King ALEX, Dr. Barrios Attending Physician Atilio JOHNSON, Dr. Griffin Attending Physician Mingo VIRK, Lyssa Attending Physician [phone] Lyssa Aguila CNM Referring Provider [phone] Tucker JOHNSON, Dr. Thomas Attending Physician Unavailkavitha Ceballos MD, Dr. Thomas Referring Provider Unavailab jeramie Ceballos MD, Dr. Thomas Nurse Practitioner Unavailab jeramie Escobar MD, Dr. Henderson [facility] Physicia n Shawn JOHNSON, Dr. Henderson Referring Provider Carla MEDICAL ASSISTANT FLOAT-CManda Attending Physician [phone] King ALEX, Dr. Barrios Attending Physician Dr. Carmelita Weeks DO Attending Physician Carla MEDICAL ASSISTANT FLOAT-CManda Referring Provider [phone] Beatriz Escobar Primary Care [...] Unavailabl e Carmelita Weeks Attending Unavailabl e [place], [place] Primary Care Unavailable [facility] Primary Care Unavailable Vande Velde, Carmelita Attending Unavailabl e Vande Velde, Carmelita Referring Unavailabl e Vande Velde, Carmelita Attending Unavailabl e [place], [place] Primary Care Unavailable [facility], [place] Primary Care Unavailable [place], [facility] Referring Unavailable Vande Raeann, Carmelita Attending Unavailabl e [place], [place] Primary Care Unavailable William Ceballos Referring Unavailable William Ceballos Attending Unavailable William Ceballos Consulting Unavailable [place], [facility] Referring Unavailable Lyssa Aguila Attending Unavailable [facility] Primary Care Unavailable [facility], [place] Primary Care Unavailable [place], [place] Referring Unavailable CarlaManda montenegro Attending Unavailable [facility] Primary Care Unavailable [facility], [place] Referring Unavailable Denis Galdamez Attending Unavailable Manda Aguirre Attending Unavailable [facility], [place] Primary Care Unavailable [facility], [place] Referring Unavailable [facility], [place] Primary Care Unavailable [facility], [place] Referring Unavailable Gaby Trimble Attending Unavailable Vande Velde, Carmelita Attending Unavailabl e [place], [place] Primary Care Unavailable [facility] Referring Unavailable [facility], [place] Primary Care Unavailable Lyssa Aguila Referring Unavailable Lyssa Aguila Attending Unavailable [facility] Primary Care Unavailable Lyssa Aguila Referring Unavailable Lyssa Aguila Attending Unavailable [place] Referring Unavailable Manda Aguirre Attending Unavailable [facility], [place] Primary Care Unavailable [place], [place] Primary Care Unavailable Manda Aguirre Referring Unavailable Manda Aguirre Attending Unavailable Denis Galdamez Attending Unavailable [facility] Primary Care Unavailable Denis Galdamez Referring Unavailable [facility] Primary Care Unavailable William Ceballos Referring Unavailable William Ceballos Attending Unavailable [facility] Primary Care Unavailable [facility], [place] Referring Unavailable Lyssa Aguila Attending Unavailable Allergies Allergy Classification Reported Allergen(s) Allergy Type Date of Onset Reaction(s) Facility (17 sources) Penicillins Allergy to substance 09-19-2021 Unknown [facility] Comment on above: as a (1 source) Penicillin; Translations: [penicillins] Drug Allergy [facility] (1 source) Penicillins Drug allergy (disorder) 05-16-2025 [facility] Repository Medications Current Medications Medication Drug Class(es) [...] Ordered Start: 05-10-2022 take [address] [facility] once daily Multivitamin Active 1 TABLET PO DAILY May 10, 2022 12:00am Mv-Mins 76-Gsnc-Hmqsh No.1-D garvey (Pnv-Serafina) 28-1-300 mg capsule (13 sources) Start: 11-12-2024 Mv-Mins 71-Iro n-Folic No.1-Dha (Pnv-Serafina) 28-1-300 mg capsule Active 1 NMA PO DAILY November 12, 2024 12:00am Complies with drug therapy Start: 11-12-2024 Mv-Mins 71-Iro n-Folic No.1-Dha (Pnv-Serafina) 28-1-300 mg capsule Active NMA PO November 12, 2024 12:00am [place] (Nk) (2 sources) Start: 09-19-2021 [place] (Nk) A ctive September 19, 2021 12:00am [...] 1 tablet by mouth once daily Prenat.Vits,Marcel,Mi v-Zfeo-Alstd Discontinued 1 TABLET PO DAILY January 11, 2021 12:00am August 16, 2021 2:41pm Prenat.Vits,Marcel,Min -Iron-Folic tablet (13 sources) Start: 01-11-2021 End: 08-16-2021 Prenat.Vits,Marcel,Mi c-Rwqq-Jcyay tablet Discontinued 1 {tbl} PO DAILY January 11, 2021 12:00am August 16, 2021 2:41pm Start: 01-11-2021 End: 08-16-2021 Prenat.Vits,Marcel,Bof-Xyhl-Vjj ic tablet Discontinued 1 {tbl} PO DAILY [...] (HPV)] 01-11-2021 Episodic Comment on above: 04/2020 [facility], record scanned Residual codes; unclassified (20 sources) Past history of procedure; Translations: [Other specified postprocedural states] 01-11-2021 Episodic Comment on above: [facility] pap 04/2020 pos HPV, neg pap. 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 Carmelita Rossi DO Age/Sex: 35/F [place] [facility] [place]: Signed Intake Vital Signs 03/22/25 10:36 04/28/25 10:42 05/16/25 10:09 Height 5 ft 2 in 5 ft 2 in 5 ft 2 in Weight: 190 lb 4 oz BMI 34.7 BP 119/80 Intake Visit Reasons: 32 WK OB Ben Day Artist Required: No Is patient in pain?: No Allergies Penicillins Allergy (Unknown, Verified 05/16/25 10:10) Unknown Medications ???Medication ???Instructions ???Recorded ???Confirmed ???Type multivit-min no.71-iron fum 28 1 cap PO DAILY 11/12/24 05/16/25 H istory mg-folate no.1 1 mg-dha 300 mg capsule (PNV-Serafina) methimazole 5 mg tablet 2.5 mg (1/2 [...] History of bunionectomy of right great toe [place] teeth extracted History of colposcopy Family History Mother Hypertension Father Diabetes Aunt Thyroid disorder Maternal- unknown type Social History adopted: No household members: spouse and children housing: house number of children: 2 current occupational status: unemployed current occupation: [employer] pets and animals: Yes (no litter [...] activity do you participate in: none [place]/evangelical: [employer] seatbelt use: always do you feel safe at home: Yes 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 Date Name GA/Weeks Outcome Route Bth Weight Gen Labor Lgth Anesthesia Del Locatn Provider FOB Unknown 08/2024 6 spontaneous 04/30/08 Shlomo 36 live - 6# Male epidural [facility] Taye 08/08/21 Emalie 36 live - 6lbs 14oz Female epidural [facility] Va nde Velde Delivery Date: 04/30/08 Last Updated by: Manda Aguirre MEDICAL ASSISTANT FLOAT, MEDICAL ASSISTANT FLOAT-C Induced to preeclampsia, teen Delivery Date: 08/08/21 [...] 115/73 Negative (more content not included)... Normal [facility] Gestational GTT 3HR 100gon 1 07-09-2024 GEST GTT 100gm Normal [facility] Comment on above: Order Comment: Y Result [...] By: #### L 501.0900, M100.2200, L7000.1800 #### [facility] [address] [place], [address] Laboratory - Chemistry and C hemistry - challengeOrdered By: Carmelita Cary on 04-28-2025 Glucose Ql (U) Negative [facility] Laboratory - UrinalysisOrder ed By: Carmelita Cary on 04-28-2025 Protein Ql (U) Negative [facility] 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 Helper Office Visit Reporton 04-28-2025 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 Helper Office Visit Report [facility] [address], [address] [place] [address] OFFICE VISIT Date of Service: 04/28/25 MR#: [id number] Acct: [id number] Name: DEMARCUS ABAD Rep #: [id number] : 1990 Provider: Dr. Carmelita Rossi DO Age/Sex: 35/F Location: [facility] Status: Signed Intake Vital Signs 04/18/25 10:59 04/28/25 10:42 04/28/25 10:42 Height 5 ft 2 in 5 ft 2 in 5 ft 2 in Weight: 187 lb BMI 34.2 BP 114/71 Intake Visit Reasons: Discuss 3hr glucose *do not shorten Ben Day Artist Required: No Is patient in pain?: No Allergies Penicillins Allergy (Unknown, Verified 04/28/25 10:41) Unknown Medications ???Medication ???Instructions ???Recorded ???Confirmed ???Type multivit-min no.71-iron fum 28 1 cap PO DAILY 11/12/24 04/28/25 H istory mg-folate no.1 1 mg-dha 300 mg capsule (PNV-Serafina) methimazole 5 mg tablet 2.5 mg (1/2 [...] History of bunionectomy of right great toe [place] teeth extracted History of colposcopy Family History Mother Hypertension Father Diabetes Aunt Thyroid disorder Maternal- unknown type Social History adopted: No household members: spouse and children housing: house number of children: 2 current occupational status: unemployed current occupation: [employer] pets and animals: Yes (no litter [...] activity do you participate in: none [place]/evangelical: [employer] seatbelt use: always do you feel safe [...] Shlomo 36 live - 6# Male epidural [facility] Taye 08/08/21 Emalie 36 live - 6lbs 14oz Female epidural [facility] Va nde Velde Delivery Date: 04/30/08 Last Updated by: Manda Aguirre MEDICAL ASSISTANT FLOAT, MEDICAL ASSISTANT FLOAT-C Induced to preeclampsia, teen Delivery Date: 08/08/21 [...] -???-???-???-???-??? -???-? (more content not included)... Normal [facility] Gestational GTT 3HR 100gon 1 GEST GTT 100gm Normal [facility] Comment on above: Order Comment: Y Result Comment: FAST ING 89 Col: 04/26/25 1004 GLUCOSE TOLERANCE TEST FOR Reference Interval GESTATIONAL DIABETES Fasting <105 mg/dL 1 hour <190 mg/dl 2 hour <165 mg/dl 3 hour <145 mg/dl 1 HR GLU Col: 04/26/25 1102 2 HR GLU Col: 04/26/25 1202 3 HR GLU Col: 04/26/25 1302 Performed By: #### L 501.0900, M100.2200, L7000.1800 #### [facility] [address] [place], [address] Quantitative serum or plasma 3 hour gestational glucose tolerance panelOrdered By: Manda Aguirre on 04-26-2025 Glucose tolerance 3 hours gestational panel See comment [facility] Comment on above: FASTING 89 Col: 04/07 07/31 1004GLUCOSE TOLERANCE TEST FOR Reference Interval GESTATIONAL DIABETES Fasting <105 mg/dL 1 hour <190 mg/dl 2 hour <165 mg/dl 3 hour <145 mg/dl Absolute lymphocyte countOrd ered By: Manda Aguirre on 04-18-2025 Lymphocytes Auto (Unsp spec) [#/Vol] 1.46 10*3/uL 0.83-4.51 [facility] Absolute neutrophil countOrd ered By: Manda Aguirre on 04-18-2025 Neutrophils (Bld) [#/Vol] 6.5 10*3/uL 2.0-7.7 [facility] Automated lymphocyte count a s percentage of total leukocytesOrdered By: Manda Aguirre on 04-18-2025 Lymphocytes/100 WBC Auto (Unsp spec) 16.9 % Low 19-41 [facility] Basophil percentageOrdered B y: Manda Aguirre on 04-18-2025 Basophils/100 WBC (Bld) 0.2 % 0-1 [facility] CBC W/Diff, Automatedon 04-06 Absolute Lymph 1.46 X10 3/uL Normal 0.83-4.51 [facility] Comment on above: Performed By: #### L 501.0900, M100.2200, L7000.1800 #### [facility] [address] [place], [address] Absolute Neut 6.5 X10 3/uL Normal 2.0-7.7 [facility] Comment on above: Performed By: #### L 501.0900, M100.2200, L7000.1800 #### [facility] [address] [facility] [place], [address] Basophils/100 WBC (Bld) 0.2 % Normal 0-1 [facility] Comment on above: Performed By: #### L 501.0900, M100.2200, L7000.1800 #### [facility] [address] [place], [address] Eosinophils/100 WBC (Bld) 0.5 % Normal 0-5 [facility] Comment on above: Performed By: #### L 501.0900, M100.2200, L7000.1800 #### [facility] [address] [place], [address] Erythrocyte distribution width (RBC) [Ratio] 12.5 % Normal 11.6-14.6 [facility] Comment on above: Performed By: #### L 501.0900, M100.2200, L7000.1800 #### [facility] [address] [place], [address] Hematocrit (Bld) [Volume fraction] 36.6 % Low 37-47 [facility] Comment on above: Performed By: #### L 501.0900, M100.2200, L7000.1800 #### [facility] [address] [place], [address] Hemoglobin (Bld) [Mass/Vol] 12.5 g/dL Normal 12.0-15.0 [facility] Comment on above: Performed By: #### L 501.0900, M100.2200, L7000.1800 #### [facility] [address] [place], [address] IG% 0.700 Normal 0.0-0.9 [facility] Comment on above: Result Comment: IG% - Immature Granulocytes (promyelocytes, myelocytes and metamyelocytes) > 1% indicates that a LEFT SHIFT is Present. Performed By: #### L 501.0900, M100.2200, L7000.1800 #### [facility] [address] [place], [address] Lymphocytes/100 WBC (Bld) 16.9 % Low 19-41 [facility] Comment on above: Performed By: #### L 501.0900, M100.2200, L7000.1800 #### [facility] [address] [place], [address] MCH (RBC) [Entitic mass] 30.6 pg Normal 27.0-32.0 [facility] Comment on above: Performed By: #### L 501.0900, M100.2200, L7000.1800 #### [facility] [address] [place], [address] MCHC (RBC) [Mass/Vol] 34.2 g/dL Normal 32-36 [facility] Comment on above: Performed By: #### L 501.0900, M100.2200, L7000.1800 #### [facility] [address] [place], [address] MCV (RBC) [Entitic vol] 89.5 fL Normal 81-99 [facility] Comment on above: Performed By: #### L 501.0900, M100.2200, L7000.1800 #### [facility] [address] [place], [address] Monocytes/100 WBC (Bld) 6.6 % Normal 0-10 [facility] Comment on above: Performed By: #### L 501.0900, M100.2200, L7000.1800 #### [facility] [address] [place], [address] Neutrophils/100 WBC (Bld) 75.1 % High 47-70 [facility] Comment on above: Performed By: #### L 501.0900, M100.2200, L7000.1800 #### [facility] [address] [place], [address] Nucleated RBC (Bld) [#/Vol] 0 10*3/uL Normal 0-5 [facility] Comment on above: Performed By: #### L 501.0900, M100.2200, L7000.1800 #### [facility] [address] [place], [address] Platelet mean volume (Bld) [Entitic vol] 10.0 fL Normal 6.2-12.0 [facility] Comment on above: Performed By: #### L 501.0900, M100.2200, L7000.1800 #### [facility] [address] [place], [address] Platelets (Bld) [#/Vol] 228 10*3/uL Normal 150-450 [facility] Comment on above: Performed By: #### L 501.0900, M100.2200, L7000.1800 #### [facility] [address] [place], [address] RBC (Bld) [#/Vol] 4.09 10*6/uL Low 4.2-5.4 [facility] Comment on above: Performed By: #### L 501.0900, M100.2200, L7000.1800 #### [facility] [address] [place], [address] RDW SD 41.0 fl Normal 35.1-43.9 [facility] Comment on above: Performed By: #### L 501.0900, M100.2200, L7000.1800 #### [facility] [address] [place], [address] WBC (Bld) [#/Vol] 8.6 10*3/uL Normal 4.4-11.0 [facility] Comment on above: Performed By: #### L 501.0900, M100.2200, L7000.1800 #### [facility] [address] [place], [address] Eosinophil percentageOrdered By: Manda Aguirre on 04-18-2025 Eosinophils/100 WBC (Bld) 0.5 % 0-5 [facility] Erythrocyte distribution wid th ratioOrdered By: Manda Aguirre on 04-18-2025 Erythrocyte distribution width (RBC) [Ratio] 12.5 % 11.6-14.6 [facility] Erythrocyte distribution wid th standard deviationOrdered By: Manda Aguirre on 04-18-2025 Erythrocyte distribution width (RBC) [Ratio] 41.0 fl 35.1-43.9 [facility] Free L1Dcedthh By: Denis Galdamez on 04-18-2025 Free T3 [Mass/Vol] 2.8 pg/mL 2.18-3.98 [facility] Free T3on 04-18-2025 Free T3 [Mass/Vol] 2.8 pg/mL Normal 2.18-3.98 [facility] Comment on above: Performed By: #### L 501.0900, M100.2200, L7000.1800 #### [facility] [address] [facility] [place], [place], [id number] Glucose Challenge Gest 1H 50 tatyana 04-18-2025 GLU GEST 50g 1H 136 mg/dL Normal 70-140 [facility] Comment on above: Result Comment: AMENDED REPORT 04/18/25 1330 GLU GEST 50g 1H previously reported as: 136 mg/dL Performed By: #### L 501.0900, M100.2200, L7000.1800 #### [facility] [address] [facility]. [place], [place], [address] Glucose measurement at 2 meir rs post-dose gestational glucose tolerance testOrdered By: Manda Aguirre on 04-18-2025 Glucose [Mass/Vol] 142 mg/dL High 70-140 [facility] Comment on above: Previous reported re sult: 136 mg/dLEdited by: ALEXANDER on 04/18/25:1330 AMENDED REPORT 04/18/25 1330 GLU GEST 50g 1H previously reported as: 136 mg/dL HIVon 04-18-2025 HIV Non-Reactive Normal Nonreactive [facility] Comment on above: Result Comment: Non- Reactive Reactive Repeatedly reactive samples must be confirmed according to CDC recommended confirmatory algorithms. The subresults for either HIVAG or AHIV can be used as an aid in the selection of the confirmation algorithm for reactive samples. Send out specimens with Reactive results to [facility] for confirmation. Order the HIV antibody detection and differentiation: lc#[id number] Performed By: #### L 501.0900, M100.2200, L7000.1800 #### [facility] [address] [place], [address] Hematocrit Auto (Bld) [Volum e fraction]Ordered By: Manda Aguirre on 04-18-2025 Hematocrit (Bld) [Volume fraction] 36.6 % Low 37-47 [facility] Hemoglobin measurementOrdere d By: Manda Aguirre on 04-18-2025 Hemoglobin (Bld) [Mass/Vol] 12.5 g/dL 12.0-15.0 [facility] Immature granulocytes/100 WB C Auto (Bld)Ordered By: Manda Aguirre on 04-18-2025 Immature granulocytes/100 WBC (Bld) 0.700 % 0.0-0.9 [facility] Comment on above: IG% - Immature Granu locytes (promyelocytes, myelocytes and metamyelocytes) > 1% indicates that a LEFT SHIFT is Present. Laboratory - Chemistry and C hemistry - challengeOrdered By: Carmelita Cary on 04-18-2025 Glucose Ql (U) Negative [facility] Laboratory - UrinalysisOrder ed By: Carmelita Cary on 04-18-2025 Protein Ql (U) Negative [facility] MCV (mean corpuscular volume ) determinationOrdered By: Manda Aguirre on 04-18-2025 MCV (RBC) [Entitic vol] 89.5 fL 81-99 [facility] Mean corpuscular hemoglobin (MCH) determinationOrdered By: Manda Aguirre on 04-18-2025 MCH (RBC) [Entitic mass] 30.6 pg 27.0-32.0 [facility] Mean corpuscular hemoglobin concentration (MCHC) determinationOrdered By: Manda Aguirre on 04-18-2025 MCHC (RBC) [Mass/Vol] 34.2 g/dL 32-36 [facility] Mean platelet volume determi nationOrdered By: Manda Aguirre on 04-18-2025 Platelet mean volume (Bld) [Entitic vol] 10.0 fL 6.2-12.0 [facility] Monocyte percentageOrdered B y: Manda Aguirre on 04-18-2025 Monocytes/100 WBC (Bld) 6.6 % 0-10 [facility] Neutrophil percentageOrdered By: Manda Aguirre on 04-18-2025 Neutrophils/100 WBC (Bld) 75.1 % High 47-70 [facility] No Panel InformationOrdered By: Manda Aguirre on 04-18-2025 HIV (1&2) Antibody Non-Reactive Nonreactive [facility] Comment on above: Non-ReactiveReactive Repeatedly reactive samples must be confirmed according to CDC recommended confirmatory algorithms. The subresults for either HIVAG or AHIV can be used as an aid in the selection of the confirmation algorithm for reactive samples.Send out specimens with Reactive results to [facility] for confirmation.Order the HIV antibody detection and differentiation: #[id number] Nucleated red blood cell per centageOrdered By: Manda Aguirre on 04-18-2025 Nucleated RBC/100 WBC (Bld) [Ratio] 0 % 0-5 [facility] 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 Helper Office Visit Reporton 04-18-2025 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 Helper Office Visit Report [facility]'s [address], [address] [place] [address] OFFICE VISIT Date of Service: 04/18/25 MR#: [id number] Acct: [id number] Name: DEMARCUS ABAD Rep #: [id number] : 1990 Provider: Dr. Carmelita Rossi DO Age/Sex: 35/F [place] [facility] [place]: Signed Intake Vital Signs 01/25/25 13:59 04/02/25 18:35 04/18/25 10:56 04/18/25 10:59 Height 5 ft 2 in 5 ft 2 in 5 ft 2 in 5 ft 2 in Weight: 183 lb 9 oz BMI 33.5 BP 106/71 Intake Visit Reasons: 28wk ob/glucose Ben Day Artist Required: No Is patient in pain?: No Allergies Penicillins Allergy (Unknown, Verified 04/18/25 10:56) Unknown Medications ???Medication ???Instructions ???Recorded ???Confirmed ???Type multivit-min no.71-iron fum 28 1 cap PO DAILY 11/12/24 04/18/25 H istory mg-folate no.1 1 mg-dha 300 mg capsule (PNV-Serafina) methimazole 5 mg tablet 2.5 mg (1/2 [...] History of bunionectomy of right great toe [place] teeth extracted History of colposcopy Family History Mother Hypertension Father Diabetes Aunt Thyroid disorder Maternal- unknown type Social History adopted: No household members: spouse and children housing: house number of children: 2 current occupational status: unemployed current occupation: [employer] pets and animals: Yes (no litter [...] activity do you participate in: none [place]/evangelical: [employer] seatbelt use: always do you feel safe at home: Yes additional social history: [employer] History 4 Elective abortions Hx Para 2 Spontaneous abortions 1 Hx # Term Pregnancies Ectopic pregnancies Hx # Pregnancies 2 Multiple births # of living children 2 Past Pregnancies Del. Date Name GA/Weeks Outcome Route Bth Weight Infant Gen Labor Lgth Anesthesia Del Locatn Provider FOB Unknown 08/2024 6 spontaneous 04/30/08 Shlomo 36 live - 6# Male epidural [facility] Taye 08/08/21 Emalie 36 live - 6lbs 14oz Female epidural [facility] Va nde Velde Delivery Date: 04/30/08 Last Updated by: Manda Aguirre MEDICAL ASSISTANT FLOAT, MEDICAL ASSISTANT FLOAT-C Induced to preeclampsia, teen Delivery Date: 08/08/21 [...] -???-???- 13 (more content not included)... Normal [facility] Platelet countOrdered By: Kenneth Aguirre on 04-18-2025 Platelets (Bld) [#/Vol] 228 10*3/uL 150-450 [facility] RBC Auto (Bld) [#/Vol]Ordere d By: Manda Aguirre on 04-18-2025 RBC (Bld) [#/Vol] 4.09 10*6/uL Low 4.2-5.4 [facility] Syphilis Antibodieson 2024 Syphilis Abs Non-Reactive Normal Nonreactive [facility] Comment on above: Performed By: #### L 501.0900, M100.2200, L7000.1800 #### [facility] [address] [place], [place], [id number] T4 Free Directon 04-18-2025 T4 FREE DIRECT 0.70 ng/dL Low 0.76-1.46 [facility] Comment on above: Performed By: #### L 501.0900, M100.2200, L7000.1800 #### [facility] [address] [place], [address] T4 freeOrdered By: Denis Galdamez on 04-18-2025 Free T4 [Mass/Vol] 0.70 ng/dL Low 0.76-1.46 [facility] TSH DL <= 0.005 mIU/L QnOrde red By: Denis Galdamez on 04-18-2025 TSH Qn 0.426 uIU/mL 0.300-4.200 [facility] Thyroid Stim Hormone (TSH)on 04-18-2025 TSH 0.426 uIU/mL Normal 0.300-4.200 [facility] Comment on above: Performed By: #### L 501.0900, M100.2200, L7000.1800 #### [facility] [address] [place], [address] White blood cell (WBC) count Ordered By: Manda Aguirre on 04-18-2025 WBC (Bld) [#/Vol] 8.6 10*3/uL 4.4-11.0 [facility] OB Triage Physician Noteon 0 04-03-2025 OB Triage Physician Note [facility] Medical Records Department [address] [place] [address] OB Triage Physician Note 04/03/25 1535 MR#: [id number] Acct: [id number] Name: DEMARCUS ABAD Rep #: [id number] : 1990 35 From: William Ceballos MD PCP: Dr. Beatriz Escobar MD Status:[facility] Location: [facility] DEMARCUS ABAD, is a 35 F G4, [...] 1 mg-dha 300 mg 1 cap capsule (PNV-Serafina) methimazole 5 mg tablet 2.5 mg (1/2 x 5 mg) PO .every 01/0403/30/25 08:00 Rx other day #15 tabs 2.5 mg Allergy/AdvReac Type Severity Reaction Status Date / Time Penicillins Allergy Unknown Unknown Verified 04/02/25 18:30 Family History Mother Hypertension Father Diabetes Aunt Thyroid disorder Maternal- unknown type Surgical History History of bunionectomy of right great toe [place] teeth extracted History of colposcopy Social History adopted: No household members: spouse and children housing: house number of children: 2 current occupational status: unemployed current occupation: [employer] pets and animals: Yes (no litter [...] activity do you participate in: none [place]/evangelical: [employer] seatbelt use: always do you feel safe at home: Yes 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 Date Name GA/Weeks Outcome Route Bth Weight Gen Labor Lgth Anesthesia Del Locatn Provider FOB Unknown 08/2024 6 spontaneous 04/30/08 Shlomo 36 live - 6# Male epidural [facility] Taye 08/08/21 Emalie 36 live - 6lbs 14oz Female epidural [facility] [place] Delivery Date: 04/30/08 Last Updated by: Manda Aguirre MEDICAL ASSISTANT FLOAT, MEDICAL ASSISTANT FLOAT-C Induced to preeclampsia, teen Delivery Date: 08/08/21 [...] Note 11/24/24 (more content not included)... Normal [facility] - Chemistry and C hemistry - challengeOrdered By: Manda Aguirre on 03-22-2025 Glucose Ql (U) Negative [facility] - UrinalysisOrder ed By: Manda Aguirre on 03-22-2025 Protein Ql (U) Negative [facility] 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 Office Visit Reporton 03-22-2025 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 Office Visit Report [facility] [address], [address] [place] [address] OFFICE VISIT Date of Service: 03/22/25 MR#: [id number] Acct: [id number] Name: DEMARCUS ABAD Rep #: [id number] : 1990 Provider: LUCILA arriola Age/Sex: 35/F [place] [facility] [place]: Signed Intake Vital Signs 01/25/25 13:59 02/21/25 11:01 03/22/25 10:32 03/22/25 10:36 Height 5 ft 2 in 5 ft 2 in 5 ft 2 in 5 ft 2 in Weight: 178 lb 1 oz BMI 32.5 BP 111/75 Intake Visit Reasons: 24wk ob Chief Complaint: 24 Week OB Ben Day Artist Required: No Is patient in pain?: No Allergies Penicillins Allergy (Unknown, Verified 03/22/25 10:35) Unknown Medications ???Medication ???Instructions ???Recorded ???Confirmed ???Type ferrous sulfate 325 mg (65 mg 325 mg PO DAILY 09/05/23 03/22/25 History iron) tablet (Feosol) multivit-min no.71-iron fum 28 cap PO 11/12/24 03/22/25 History mg-folate no.1 1 mg-dha 300 mg capsule (PNV-Serafina) methimazole 5 mg tablet 2.5 mg (1/2 [...] History of bunionectomy of right great toe [place] teeth extracted History of colposcopy Family History Mother Hypertension Father Diabetes Aunt Thyroid disorder Maternal- unknown type Social History adopted: No household members: spouse and children housing: house number of children: 2 current occupational status: unemployed current occupation: [employer] pets and animals: Yes (no litter [...] activity do you participate in: none [place]/evangelical: [employer] seatbelt use: always do you feel safe at home: Yes 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 Date Name GA/Weeks Outcome Route Bth Weight Gen Labor Lgth Anesthesia Del Locatn Provider FOB Unknown 08/2024 6 spontaneous 04/30/08 Shlomo 36 live - 6# Male epidural [facility] Taye 08/08/21 Emalie 36 live - 6lbs 14oz Female epidural [facility] [place] Delivery Date: 04/30/08 Last Updated by: Manda Aguirre MEDICAL ASSISTANT FLOAT, MEDICAL ASSISTANT FLOAT-C Induced to preeclampsia, teen Delivery Date: 08/08/21 [...] KW- CRL (more content not included)... Normal [facility] Absolute lymphocyte countOrd ered By: Lyssa Aguila on 02-21-2025 Lymphocytes Auto (Unsp spec) [#/Vol] 1.56 10*3/uL 0.83-4.51 [facility] Absolute neutrophil countOrd ered By: Lyssa Aguila on 02-21-2025 Neutrophils (Bld) [#/Vol] 7.8 10*3/uL High 2.0-7.7 [facility] Automated lymphocyte count a s percentage of total leukocytesOrdered By: Lyssa Aguila on 02-21-2025 Lymphocytes/100 WBC Auto (Unsp spec) 15.5 % Low 19-41 [facility] Basophil percentageOrdered B y: Lyssa Aguila on 02-21-2025 Basophils/100 WBC (Bld) 0.3 % 0-1 [facility] CBC W/Diff, Automatedon 02-04 Absolute Lymph 1.56 X10 3/uL Normal 0.83-4.51 [facility] Comment on above: Performed By: #### L 501.0900, M100.2200, L7000.1800 #### [facility] [address] [place], [address] Absolute Neut 7.8 X10 3/uL High 2.0-7.7 [facility] Comment on above: Performed By: #### L 501.0900, M100.2200, L7000.1800 #### [facility] [address] [place], [address] Basophils/100 WBC (Bld) 0.3 % Normal 0-1 [facility] Comment on above: Performed By: #### L 501.0900, M100.2200, L7000.1800 #### [facility] [address] [place], [address] Eosinophils/100 WBC (Bld) 0.7 % Normal 0-5 [facility] Comment on above: Performed By: #### L 501.0900, M100.2200, L7000.1800 #### [facility] [address] [place], [address] Erythrocyte distribution width (RBC) [Ratio] 13.0 % Normal 11.6-14.6 [facility] Comment on above: Performed By: #### L 501.0900, M100.2200, L7000.1800 #### [facility] [address] [place], [address] Hematocrit (Bld) [Volume fraction] 39.3 % Normal 37-47 [facility] Comment on above: Performed By: #### L 501.0900, M100.2200, L7000.1800 #### [facility] [address] [place], [address] Hemoglobin (Bld) [Mass/Vol] 13.4 g/dL Normal 12.0-15.0 [facility] Comment on above: Performed By: #### L 501.0900, M100.2200, L7000.1800 #### [facility] [address] [place], [address] IG% 0.500 Normal 0.0-0.9 [facility] Comment on above: Result Comment: IG% - Immature Granulocytes (promyelocytes, myelocytes and metamyelocytes) > 1% indicates that a LEFT SHIFT is Present. Performed By: #### L 501.0900, M100.2200, L7000.1800 #### [facility] [address] [place], [address] Lymphocytes/100 WBC (Bld) 15.5 % Low 19-41 [facility] Comment on above: Performed By: #### L 501.0900, M100.2200, L7000.1800 #### [facility] [address] [place], [address] MCH (RBC) [Entitic mass] 30.1 pg Normal 27.0-32.0 [facility] Comment on above: Performed By: #### L 501.0900, M100.2200, L7000.1800 #### [facility] [address] [place], [address] MCHC (RBC) [Mass/Vol] 34.1 g/dL Normal 32-36 [facility] Comment on above: Performed By: #### L 501.0900, M100.2200, L7000.1800 #### [facility] [address] [place], [address] MCV (RBC) [Entitic vol] 88.3 fL Normal 81-99 [facility] Comment on above: Performed By: #### L 501.0900, M100.2200, L7000.1800 #### [facility] [address] [place], [address] Monocytes/100 WBC (Bld) 5.7 % Normal 0-10 [facility] Comment on above: Performed By: #### L 501.0900, M100.2200, L7000.1800 #### [facility] [address] [place], [address] Neutrophils/100 WBC (Bld) 77.3 % High 47-70 [facility] Comment on above: Performed By: #### L 501.0900, M100.2200, L7000.1800 #### [facility] [address] [place], [address] Nucleated RBC (Bld) [#/Vol] 0 10*3/uL Normal 0-5 [facility] Comment on above: Performed By: #### L 501.0900, M100.2200, L7000.1800 #### [facility] [address] [place], [address] Platelet mean volume (Bld) [Entitic vol] 10.1 fL Normal 6.2-12.0 [facility] Comment on above: Performed By: #### L 501.0900, M100.2200, L7000.1800 #### [facility] [address] [place], [address] Platelets (Bld) [#/Vol] 238 10*3/uL Normal 150-450 [facility] Comment on above: Performed By: #### L 501.0900, M100.2200, L7000.1800 #### [facility] [address] [place], [address] RBC (Bld) [#/Vol] 4.45 10*6/uL Normal 4.2-5.4 [facility] Comment on above: Performed By: #### L 501.0900, M100.2200, L7000.1800 #### [facility] [address] [place], [address] RDW SD 41.8 fl Normal 35.1-43.9 [facility] Comment on above: Performed By: #### L 501.0900, M100.2200, L7000.1800 #### [facility] [address] [place], [address] WBC (Bld) [#/Vol] 10.1 10*3/uL Normal 4.4-11.0 [facility] Comment on above: Performed By: #### L 501.0900, M100.2200, L7000.1800 #### [facility] [address] [place], [address] Eosinophil percentageOrdered By: Lyssa Aguila on 02-21-2025 Eosinophils/100 WBC (Bld) 0.7 % 0-5 [facility] Erythrocyte distribution wid th ratioOrdered By: Lyssa Aguila on 02-21-2025 Erythrocyte distribution width (RBC) [Ratio] 13.0 % 11.6-14.6 [facility] Erythrocyte distribution wid th standard deviationOrdered By: Lyssa Aguila on 02-21-2025 Erythrocyte distribution width (RBC) [Ratio] 41.8 fl 35.1-43.9 [facility] Free T3on 02-21-2025 Free T3 [Mass/Vol] 2.8 pg/mL Normal 2.18-3.98 [facility] Comment on above: Performed By: #### L 501.0900, M100.2200, L7000.1800 #### [facility] [address] [place], [address] Free [id number] By: Denis Galdamez on 02-21-2025 Free T3 [Mass/Vol] 2.8 pg/mL 2.18-3.98 [facility] Hematocrit Auto (Bld) [Volum e fraction]Ordered By: Lyssa Aguila on 02-21-2025 Hematocrit (Bld) [Volume fraction] 39.3 % 37-47 [facility] Hemoglobin measurementOrdere d By: Lyssa Aguila on 02-21-2025 Hemoglobin (Bld) [Mass/Vol] 13.4 g/dL 12.0-15.0 [facility] Immature granulocytes/100 WB C Auto (Bld)Ordered By: Lyssa Aguila on 02-21-2025 Immature granulocytes/100 WBC (Bld) 0.500 % 0.0-0.9 [facility] Comment on above: IG% - Immature Granu locytes (promyelocytes, myelocytes and metamyelocytes) > 1% indicates that a LEFT SHIFT is Present. Laboratory - Chemistry and C hemistry - challengeOrdered By: Lyssa Aguila on 02-21-2025 Glucose Ql (U) Negative [facility] - UrinalysisOrder ed By: Lyssa Aguila on 02-21-2025 Protein Ql (U) Negative [facility] MCV (mean corpuscular volume ) determinationOrdered By: Lyssa Aguila on 02-21-2025 MCV (RBC) [Entitic vol] 88.3 fL 81-99 [facility] Mean corpuscular hemoglobin (MCH) determinationOrdered By: Lyssa Aguila on 02-21-2025 MCH (RBC) [Entitic mass] 30.1 pg 27.0-32.0 [facility] Mean corpuscular hemoglobin concentration (MCHC) determinationOrdered By: Lyssa Aguila on 02-21-2025 MCHC (RBC) [Mass/Vol] 34.1 g/dL 32-36 [facility] Mean platelet volume determi nationOrdered By: Lyssa Aguila on 02-21-2025 Platelet mean volume (Bld) [Entitic vol] 10.1 fL 6.2-12.0 [facility] Monocyte percentageOrdered B y: Lyssa Aguila on 02-21-2025 Monocytes/100 WBC (Bld) 5.7 % 0-10 [facility] Neutrophil percentageOrdered By: Lyssa Aguila on 02-21-2025 Neutrophils/100 WBC (Bld) 77.3 % High 47-70 [facility] Nucleated red blood cell per centageOrdered By: Lyssa Aguila on 02-21-2025 Nucleated RBC/100 WBC (Bld) [Ratio] 0 % 0-5 [facility] 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 Office Visit Reporton 02-21-2025 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 Helper Office Visit Report [facility] [address], [address] [place] [address] OFFICE VISIT Date of Service: 02/21/25 MR#: [id number] Acct: [id number] Name: DEMARCUS ABAD Rep #: [id number] : 1990 Provider: SULLY Boudreaux ams Age/Sex: 35/F [place] [facility] [place]: Signed Intake Vital Signs 12/27/24 09:51 01/25/25 13:59 02/21/25 11:01 Height 5 ft 2 in 5 ft 2 in 5 ft 2 in Weight: 167 lb 2 oz 170 lb 8 oz BMI 30.5 31.1 BP 111/73 103/68 Intake Visit Reasons: 20 wk ob Chief Complaint: 20wk OB Ben [employer] Artist Required: No Is patient in pain?: No Allergies Penicillins Allergy (Unknown, Verified 02/21/25 10:59) Unknown Medications ???Medication ???Instructions ???Recorded ???Confirmed ???Type ferrous sulfate 325 mg (65 mg 325 mg PO DAILY 09/05/23 02/21/25 History iron) tablet (Feosol) multivit-min no.71-iron fum 28 cap PO 11/12/24 02/21/25 History mg-folate no.1 1 mg-dha 300 mg capsule (PNV-Serafina) methimazole 5 mg tablet 2.5 mg (1/2 x 5 mg) PO .every 01/0402/21/25 Rx other day #15 tabs Last Menstrual Period: 09/27/24 : No PFSH PFSH Medical History Hot thyroid nodule Hx of varicose veins of lower extremity Depression Nodular goiter HPV (human papilloma virus) infection Thyroid disorder Pre-eclampsia Abnormal glucose Anemia Surgical History History of bunionectomy of right great toe [place] teeth extracted History of colposcopy Family History Mother Hypertension Father Diabetes Aunt Thyroid disorder Maternal- unknown type Social History adopted: No household members: spouse and children housing: house number of children: 2 current occupational status: unemployed current occupation: [employer] pets and animals: Yes (no litter [...] activity do you participate in: none [place]/evangelical: [employer] seatbelt use: always do you feel safe at home: Yes 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 Date Name GA/Weeks Outcome Route Bth Weight Infant Gen Labor Lgth Anesthesia Del Locatn Provider FOB Unknown 08/2024 6 spontaneous 04/30/08 Shlomo 36 live - 6# Male epidural [facility] Taye 08/08/21 Emalie 36 live - 6lbs 14oz Female epidural [facility] [place] Delivery Date: 04/30/08 Last Updated by: Manda Aguirre MEDICAL ASSISTANT FLOAT, MEDICAL ASSISTANT FLOAT-C Induced to preeclampsia, teen Delivery Date: 08/08/21 [...] -???-???-???-???-??? - (more content not included)... Normal [facility] Platelet countOrdered By: Miko Aguila on 02-21-2025 Platelets (Bld) [#/Vol] 238 10*3/uL 150-450 [facility] RBC Auto (Bld) [#/Vol]Ordere d By: Lyssa Aguila on 02-21-2025 RBC (Bld) [#/Vol] 4.45 10*6/uL 4.2-5.4 [facility] T4 Free Directon 02-21-2025 T4 FREE DIRECT 0.80 ng/dL Normal 0.76-1.46 [facility] Comment on above: Performed By: #### L 501.0900, M100.2200, L7000.1800 #### [facility] [address] [place], [place], [address] T4 freeOrdered By: Denis Galdamez on 02-21-2025 Free T4 [Mass/Vol] 0.80 ng/dL 0.76-1.46 [facility] TSH DL <= 0.005 mIU/L QnOrde red By: Denis Galdamez on 02-21-2025 TSH Qn 0.193 uIU/mL Low 0.300-4.200 [facility] Thyroid Stim Hormone (TSH)on 02-21-2025 TSH 0.193 uIU/mL Low 0.300-4.200 [facility] Comment on above: Performed By: #### L 501.0900, M100.2200, L7000.1800 #### [facility] [address] [place], [address] White blood cell (WBC) count Ordered By: Lyssa Aguila on 02-21-2025 WBC (Bld) [#/Vol] 10.1 10*3/uL 4.4-11.0 [facility] Laboratory - Chemistry and C hemistry - challengeOrdered By: Gaby Trimble on 01-25-2025 Glucose Ql (U) Negative [facility] - UrinalysisOrder ed By: Gaby Trimble on 01-25-2025 Protein Ql (U) Negative [facility] 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 Office Visit Reporton 01-25-2025 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 Helper Office Visit Report [facility] [address] [place] [address], [address] [place] [address] OFFICE VISIT Date of Service: 01/25/25 MR#: [id number] Acct: [id number] Name: DEMARCUS ABAD Rep #: [id number] : 1990 Provider: Dr. Gaby rondon MD Age/Sex: 34/F [place] [facility] [place]: Signed Intake Vital Signs 11/24/24 12:59 01/10/25 13:57 01/25/25 13:59 Height 5 ft 2 in 5 ft 2 in 5 ft 2 in Weight: 167 lb 2 oz BMI 30.5 BP 111/73 Intake Visit Reasons: 16 wk ob Ben Day Artist Required: No Is patient in pain?: Yes (severe round ligament pain this ) Allergies Penicillins Allergy (Unknown, Verified 01/25/25 14:00) Unknown Medications ???Medication ???Instructions ???Recorded ???Confirmed ???Type ferrous sulfate 325 mg (65 mg 325 mg PO DAILY 09/05/23 01/25/25 History iron) tablet (Feosol) multivit-min no.71-iron fum 28 cap PO 11/12/24 01/25/25 History mg-folate no.1 1 mg-dha 300 mg capsule (PNV-Serafina) methimazole 5 mg tablet 2.5 mg (1/2 [...] History of bunionectomy of right great toe [place] teeth extracted History of colposcopy Family History Mother Hypertension Father Diabetes Aunt Thyroid disorder Maternal- unknown type Social History adopted: No household members: spouse and children housing: house number of children: 2 current occupational status: unemployed current occupation: [employer] pets and animals: Yes (no litter [...] activity do you participate in: none [place]/evangelical: [employer] seatbelt use: always do you feel safe [...] Shlomo 36 live - 6# Male epidural [facility] Taye 08/08/21 Emalie 36 live - 6lbs 14oz Female epidural [facility] [place] Delivery Date: 04/30/08 Last Updated by: Manda Aguirre MEDICAL ASSISTANT FLOAT, MEDICAL ASSISTANT FLOAT-C Induced to preeclampsia, teen Delivery Date: 08/08/21 [...] -???-???- KW (more content not included)... Normal [facility] Free T3on 01-17-2025 Free T3 [Mass/Vol] 3.3 pg/mL Normal 2.18-3.98 [facility] Comment on above: Performed By: #### L 501.9504, L501.54615, L506.0400 #### [facility] [address] [place], [address] Free [id number] By: Denis Galdamez on 01-17-2025 Free T3 [Mass/Vol] 3.3 pg/mL 2.18-3.98 [facility] T4 Free Directon 01-17-2025 T4 FREE DIRECT 1.00 ng/dL Normal 0.76-1.46 [facility] Comment on above: Performed By: #### L 501.9520, L501.28630, L506.0400 #### [facility] [address] [place], [address] T4 freeOrdered By: Denis Galdamez on 01-17-2025 Free T4 [Mass/Vol] 1.00 ng/dL 0.76-1.46 [facility] TSH DL <= 0.005 mIU/L QnOrde red By: Denis Galdamez on 01-17-2025 TSH Qn 0.022 uIU/mL Low 0.300-4.200 [facility] Thyroid Stim Hormone (TSH)on 01-17-2025 TSH 0.022 uIU/mL Low 0.300-4.200 [facility] Comment on above: Performed By: #### L 501.9520, L501.25041, L506.0400 #### [facility] [address] [place], [address] 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 Office Visit Reporton 01-10-2025 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per Office Visit Report [facility] [address], [address] [place] [address] OFFICE VISIT Date of Service: 01/10/25 MR#: [id number] Acct: [id number] Name: DEMARCUS ABAD Rep #: [id number] : 1990 Provider: LUCILA arriola Age/Sex: 34/F [place] [facility] [place]: Signed Intake Vital Signs 12/30/24 13:27 [...] check Chief Complaint: 15 Week heart check Ben [employer] Artist Required: No Is patient in pain?: No Allergies Penicillins Allergy (Unknown, Verified 01/10/25 13:53) Unknown Medications ???Medication ???Instructions ???Recorded ???Confirmed ???Type ferrous sulfate 325 mg (65 mg 325 mg PO DAILY 09/05/23 01/10/25 History iron) tablet (Feosol) multivit-min no.71-iron fum 28 cap PO 11/12/24 01/10/25 History mg-folate no.1 1 mg-dha 300 mg capsule (PNV-Serafina) Last Menstrual Period: 09/27/24 Zika: Zika virus screening: Negative : No PFSH PFSH Medical History Hot thyroid nodule Hx of varicose veins of lower extremity Depression Nodular goiter HPV (human papilloma virus) infection Thyroid disorder Pre-eclampsia Abnormal glucose Anemia Surgical History History of bunionectomy of right great toe [place] teeth extracted History of colposcopy Family History Mother Hypertension Father Diabetes Aunt Thyroid disorder Maternal- unknown type Social History adopted: No household members: spouse and children housing: house number of children: 2 current occupational status: unemployed current occupation: [employer] pets and animals: Yes (no litter [...] activity do you participate in: none [place]/evangelical: [employer] seatbelt use: always do you feel safe [...] Shlomo 36 live - 6# Male epidural [facility] Taye 08/08/21 Emalie 36 live - 6lbs 14oz Female epidural [facility] [place] Delivery Date: 04/30/08 Last Updated by: Manda Aguirre MEDICAL ASSISTANT FLOAT, MEDICAL ASSISTANT FLOAT-C Induced to preeclampsia, teen Delivery Date: 08/08/21 [...] -???-???-???-???-??? -???-???-?? (more content not included)... Normal [facility] Endocrinology Visit Reporton 12-30-2024 Endocrinology Visit Report [facility] [address] [place] [address] OFFICE VISIT Date of Service: 12/30/24 MR#: [id number] Acct: [id number] Name: DEMARCUS ABAD Rep #: [id number] : 1990 Provider: Ashly Yusuf Age/Sex: 34/F Location: [facility] Status: Signed Intake Vital Signs 12/27/24 09:51 [...] mg-folate no.1 1 mg-dha 300 mg capsule (PNV-Serafina) Patient : Yes (13 weeks) [facility] Medical History (Updated 01/03/25 @ 10:[address] Denis Galdamez MD) Hot thyroid nodule Hx of varicose veins of lower extremity Depression Nodular goiter HPV (human papilloma virus) infection Thyroid disorder Pre-eclampsia Abnormal glucose Anemia Surgical History History of bunionectomy of right great toe [place] teeth extracted History of colposcopy Family History Mother Hypertension Father Diabetes Aunt Thyroid disorder Maternal- unknown type Social History adopted: No household members: spouse and children housing: house number of children: 2 current occupational status: unemployed current occupation: [employer] pets and animals: Yes (no litter [...] activity do you participate in: none [place]/evangelical: Methodist seatbelt use: always do you feel safe at home: Yes additional social history: [employer] [facility] Female Reproductive History Menstrual [...] normal Periorbital: (more content not included)... Normal [facility] Urine Cultureon 12-28-2024 URC Culture exhibits no growth. Normal [facility] Comment on above: Performed By: #### L 501.0900, M100.2200, L7000.1800 #### [facility] [address] [place], [place], [id number] Absolute lymphocyte countOrd ered By: Lyssa Aguila on 12-27-2024 Lymphocytes Auto (Unsp spec) [#/Vol] 1.50 10*3/uL 0.83-4.51 [facility] Absolute neutrophil countOrd ered By: Lyssa Aguila on 12-27-2024 Neutrophils (Bld) [#/Vol] 5.7 10*3/uL 2.0-7.7 [facility] Anion gap in Serum or Plasma Ordered By: Lyssa Aguila on 12-27-2024 Anion gap [Moles/Vol] 12 mmol/L 5-15 [facility] Automated lymphocyte count a s percentage of total leukocytesOrdered By: Lyssa Aguila on 12-27-2024 Lymphocytes/100 WBC Auto (Unsp spec) 19.2 % 19-41 [facility] BUN/creatinine ratioOrdered By: Lyssa Aguila on 06-23-2025 Urea nitrogen/Creatinine [Mass ratio] 8.3 mg/mg Low 10-20 [facility] Comment on above: Previous reported re sult: 8.0 RATIOEdited by: AUTOINS on 12/27/24:1342 AMENDED REPORT 12/27/24 1342 BUN/CRE previously reported as: 8.0 L RATIO Basophil percentageOrdered B y: Lyssa Aguila on 12-27-2024 Basophils/100 WBC (Bld) 0.4 % 0-1 [facility] Bilirubin, totalOrdered By: Lyssa Aguila on 12-27-2024 Bilirubin [Mass/Vol] 0.27 mg/dL 0.00-1.30 [facility] Comment on above: Previous reported re sult: 0.26 mg/dLEdited by: AUTOINDevi on 12/27/24:1342 AMENDED REPORT 12/27/241341 T BILI previously reported as: 0.26 mg/dL CBC W/Diff, Automatedon 12-06 Absolute Lymph 1.50 X10 3/uL Normal 0.83-4.51 [facility] Comment on above: Performed By: #### L 500.4050, L100.0100, L501.9985, L3890.6102, L3890.6006, L509.4006, L3890.6301, L501.9520, BTS, L509.8002, L900.0098 #### [facility] [address] [facility] [place], [address] Absolute Neut 5.7 X10 3/uL Normal 2.0-7.7 [facility] Comment on above: Performed By: #### L 500.4050, L100.0100, L501.9985, L3890.6102, L3890.6006, L509.4006, L3890.6301, L501.9520, BTS, L509.8002, L900.0098 #### [facility] [address] [place], [address] Basophils/100 WBC (Bld) 0.4 % Normal 0-1 [facility] Comment on above: Performed By: #### L 500.4050, L100.0100, L501.9985, L3890.6102, L3890.6006, L509.4006, L3890.6301, L501.9520, BTS, L509.8002, L900.0098 #### [facility] [address] [place], [address] Eosinophils/100 WBC (Bld) 0.9 % Normal 0-5 [facility] Comment on above: Performed By: #### L 500.4050, L100.0100, L501.9985, L3890.6102, L3890.6006, L509.4006, L3890.6301, L501.9520, BTS, L509.8002, L900.0098 #### [facility] [address] [place], [address] Erythrocyte distribution width (RBC) [Ratio] 12.5 % Normal 11.6-14.6 [facility] Comment on above: Performed By: #### L 500.4050, L100.0100, L501.9985, L3890.6102, L3890.6006, L509.4006, L3890.6301, L501.9520, BTS, L509.8002, L900.0098 #### [facility] [address] [place], [address] Hematocrit (Bld) [Volume fraction] 41.4 % Normal 37-47 [facility] Comment on above: Performed By: #### L 500.4050, L100.0100, L501.9985, L3890.6102, L3890.6006, L509.4006, L3890.6301, L501.9520, BTS, L509.8002, L900.0098 #### [facility] [address] [place], [address] Hemoglobin (Bld) [Mass/Vol] 13.9 g/dL Normal 12.0-15.0 [facility] Comment on above: Performed By: #### L 500.4050, L100.0100, L501.9985, L3890.6102, L3890.6006, L509.4006, L3890.6301, L501.9520, BTS, L509.8002, L900.0098 #### [facility] [address] [place], [address] IG% 0.500 Normal 0.0-0.9 [facility] Comment on above: Result Comment: IG% - Immature Granulocytes (promyelocytes, myelocytes and metamyelocytes) > 1% indicates that a LEFT SHIFT is Present. Performed By: #### L 500.4050, L100.0100, L501.9985, L3890.6102, L3890.6006, L509.4006, L3890.6301, L501.9520, BTS, L509.8002, L900.0098 #### [facility] [address] [place], [address] Lymphocytes/100 WBC (Bld) 19.2 % Normal 19-41 [facility] Comment on above: Performed By: #### L 500.4050, L100.0100, L501.9985, L3890.6102, L3890.6006, L509.4006, L3890.6301, L501.9520, BTS, L509.8002, L900.0098 #### [facility] [address] [place], [address] MCH (RBC) [Entitic mass] 29.3 pg Normal 27.0-32.0 [facility] Comment on above: Performed By: #### L 500.4050, L100.0100, L501.9985, L3890.6102, L3890.6006, L509.4006, L3890.6301, L501.9520, BTS, L509.8002, L900.0098 #### [facility] [address] [place], [address] MCHC (RBC) [Mass/Vol] 33.6 g/dL Normal 32-36 [facility] Comment on above: Performed By: #### L 500.4050, L100.0100, L501.9985, L3890.6102, L3890.6006, L509.4006, L3890.6301, L501.9520, BTS, L509.8002, L900.0098 #### [facility] [address] [place], [address] MCV (RBC) [Entitic vol] 87.3 fL Normal 81-99 [facility] Comment on above: Performed By: #### L 500.4050, L100.0100, L501.9985, L3890.6102, L3890.6006, L509.4006, L3890.6301, L501.9520, BTS, L509.8002, L900.0098 #### [facility] [address] [place], [address] Monocytes/100 WBC (Bld) 6.1 % Normal 0-10 [facility] Comment on above: Performed By: #### L 500.4050, L100.0100, L501.9985, L3890.6102, L3890.6006, L509.4006, L3890.6301, L501.9520, BTS, L509.8002, L900.0098 #### [facility] [address] [place], [address] Neutrophils/100 WBC (Bld) 72.9 % High 47-70 [facility] Comment on above: Performed By: #### L 500.4050, L100.0100, L501.9985, L3890.6102, L3890.6006, L509.4006, L3890.6301, L501.9520, BTS, L509.8002, L900.0098 #### [facility] [address] [place], [address] Nucleated RBC (Bld) [#/Vol] 0 10*3/uL Normal 0-5 [facility] Comment on above: Performed By: #### L 500.4050, L100.0100, L501.9985, L3890.6102, L3890.6006, L509.4006, L3890.6301, L501.9520, BTS, L509.8002, L900.0098 #### [facility] [address] [facility], [address] Platelet mean volume (Bld) [Entitic vol] 10.2 fL Normal 6.2-12.0 [facility] Comment on above: Performed By: #### L 500.4050, L100.0100, L501.9985, L3890.6102, L3890.6006, L509.4006, L3890.6301, L501.9520, BTS, L509.8002, L900.0098 #### [facility] [address] [facility] [place], [address] Platelets (Bld) [#/Vol] 236 10*3/uL Normal 150-450 [facility] Comment on above: Performed By: #### L 500.4050, L100.0100, L501.9985, L3890.6102, L3890.6006, L509.4006, L3890.6301, L501.9520, BTS, L509.8002, L900.0098 #### [facility] [address] [place], [address] RBC (Bld) [#/Vol] 4.74 10*6/uL Normal 4.2-5.4 [facility] Comment on above: Performed By: #### L 500.4050, L100.0100, L501.9985, L3890.6102, L3890.6006, L509.4006, L3890.6301, L501.9520, BTS, L509.8002, L900.0098 #### [facility] [address] [place], [address] RDW SD 40.3 fl Normal 35.1-43.9 [facility] Comment on above: Performed By: #### L 500.4050, L100.0100, L501.9985, L3890.6102, L3890.6006, L509.4006, L3890.6301, L501.9520, BTS, L509.8002, L900.0098 #### [facility] [address] [place], [address] WBC (Bld) [#/Vol] 7.8 10*3/uL Normal 4.4-11.0 [facility] Comment on above: Performed By: #### L 500.4050, L100.0100, L501.9985, L3890.6102, L3890.6006, L509.4006, L3890.6301, L501.9520, BTS, L509.8002, L900.0098 #### [facility] [address] [place], [address] Carbon dioxide, total [Moles /volume] in Central venous bloodOrdered By: Lyssa Aguila on 12-27-2024 CO2 [Moles/Vol] 20.8 mmol/L Low 21.0-32.0 [facility] Comment on above: Previous reported re sult: 22.0 mmol/LEdited by: ALEXANDER on 12/27/24:1342 AMENDED REPORT 12/27/24 1342 CO2 previously reported as: 22.0 mmol/L Chloride assayOrdered By: Miko Aguila on 12-27-2024 Chloride [Moles/Vol] 102 mmol/L 98-108 [facility] Comment on above: Previous reported re sult: 101 mmol/LEdited by: AUTOINS on 12/27/24:1342 AMENDED REPORT 12/27/241341 CL previously reported as: 101 mmol/L Comprehensive Metabolic Prof ilon 12-27-2024 Albumin [Mass/Vol] 4.1 g/dL Normal 3.5-5.0 [facility] Comment on above: Result Comment: AMENDED REPORT 12/27/241341 ALB previously reported as: 4.1 g/dL Performed By: #### L 501.0900, M100.2200, L7000.1800 #### [facility] [address] [place], [address] Albumin/Globulin [Mass ratio] 1.5 {ratio} Normal 0.9-2.4 [facility] Comment on above: Result Comment: AMENDED REPORT 12/27/241341 A/G previously reported as: 1.5 RATIO Performed By: #### L 501.0900, M100.2200, L7000.1800 #### [facility] [address] [place], [address] ALK PHOS 61 U/L Normal 35-104 [facility] Comment on above: Result Comment: AMENDED REPORT 12/27/241341 ALK P previously reported as: 61 U/L Performed By: #### L 501.0900, M100.2200, L7000.1800 #### [facility] [address] [place], [address] ALT [Catalytic activity/Vol] 15 U/L Normal <=34 [facility] Comment on above: Result Comment: AMENDED REPORT 12/27/241341 ALT previously reported as: 15 U/L Performed By: #### L 501.0900, M100.2200, L7000.1800 #### [facility] [address] [place], [address] AST [Catalytic activity/Vol] 18 U/L Normal <=31 [facility] Comment on above: Performed By: #### L 501.0900, M100.2200, L7000.1800 #### [facility] [address] [place], [address] Bilirubin [Mass/Vol] 0.26 mg/dL Normal 0.00-1.30 [facility] Comment on above: Result Comment: AMENDED REPORT 12/27/241341 T BILI previously reported as: 0.26 mg/dL Performed By: #### L 501.0900, M100.2200, L7000.1800 #### [facility] [address] [place], [address] BUN/CRE 8.0 RATIO Low 10-20 [facility] Comment on above: Result Comment: AMENDED REPORT 12/27/241341 BUN/CRE previously reported as: 8.0 L RATIO Performed By: #### L 501.0900, M100.2200, L7000.1800 #### [facility] [address] [place], [address] Calcium [Mass/Vol] 9.4 mg/dL Normal 7.6-11.0 [facility] Comment on above: Result Comment: AMENDED REPORT 12/27/241341 CA previously reported as: 9.4 mg/dL Performed By: #### L 501.0900, M100.2200, L7000.1800 #### [facility] [address] [place], [address] Chloride [Moles/Vol] 101 mmol/L Normal 98-108 [facility] Comment on above: Result Comment: AMENDED REPORT 12/27/241341 CL previously reported as: 101 mmol/L Performed By: #### L 501.0900, M100.2200, L7000.1800 #### [facility] [address] [place], [address] CO2 [Moles/Vol] 22.0 mmol/L Normal 21.0-32.0 [facility] Comment on above: Result Comment: AMENDED REPORT 12/27/241341 CO2 previously reported as: 22.0 mmol/L Performed By: #### L 501.0900, M100.2200, L7000.1800 #### [facility] [address] [place], [address] Creatinine [Mass/Vol] 0.65 mg/dL Low 0.70-1.20 [facility] Comment on above: Result Comment: AMENDED REPORT 12/27/241341 CREAT,SERUM previously reported as: 0.65 L mg/dL Performed By: #### L 501.0900, M100.2200, L7000.1800 #### [facility] [address] [place], [address] GAP 12 Normal 5-15 [facility] Comment on above: Performed By: #### L 501.0900, M100.2200, L7000.1800 #### [facility] [address] [place], [address] GFR/1.73 sq M.predicted among non-blacks MDRD (S/P/Bld) [Vol rate/Area] 118 mL/min/{1.73_m2} Normal >60 [facility] Comment on above: Result Comment: mL/m in/1.73m2 CKD-EPI Creatinine Equation (2020) Performed By: #### L 501.0900, M100.2200, L7000.1800 #### [facility] [address] [place], [address] Globulin (S) [Mass/Vol] 2.6 g/dL Normal 2.2-4.2 [facility] Comment on above: Result Comment: AMENDED REPORT 12/27/241341 GLOB previously reported as: 2.6 g/dL Performed By: #### L 501.0900, M100.2200, L7000.1800 #### [facility] [address] [place], [address] Glucose [Mass/Vol] 74 mg/dL Normal 70-99 [facility] Comment on above: Result Comment: AMENDED REPORT 12/27/24 1342 GLU previously reported as: 74 mg/dL Performed By: #### L 501.0900, M100.2200, L7000.1800 #### [facility] [address] [place], [address] Potassium [Moles/Vol] 4.0 mmol/L Normal 3.3-5.1 [facility] Comment on above: Result Comment: AMENDED REPORT 12/27/241341 K previously reported as: 4.0 mmol/L Performed By: #### L 501.0900, M100.2200, L7000.1800 #### [facility] [address] [place], [address] Sodium [Moles/Vol] 135 mmol/L Normal 133-145 [facility] Comment on above: Performed By: #### L 501.0900, M100.2200, L7000.1800 #### [facility] [address] [place], [address] T PROT 6.7 g/dL Normal 5.9-8.4 [facility] Comment on above: Result Comment: AMENDED REPORT 12/27/24 1342 T PROT previously reported as: 6.7 g/dL Performed By: #### L 501.0900, M100.2200, L7000.1800 #### [facility] [address] [place], [address] Urea nitrogen [Mass/Vol] 5 mg/dL Normal 4-19 [facility] Comment on above: Performed By: #### L 501.0900, M100.2200, L7000.1800 #### [facility] [address] [place], [place], [address] Eosinophil percentageOrdered By: Lyssa Aguila on 12-27-2024 Eosinophils/100 WBC (Bld) 0.9 % 0-5 [facility] Erythrocyte distribution wid th ratioOrdered By: Lyssa Aguila on 12-27-2024 Erythrocyte distribution width (RBC) [Ratio] 12.5 % 11.6-14.6 [facility] Erythrocyte distribution wid th standard deviationOrdered By: Lyssa Aguila on 12-27-2024 Erythrocyte distribution width (RBC) [Ratio] 40.3 fl 35.1-43.9 [facility] Glomerular filtration rate ( GFR) estimation/1.73 sq m using serum, plasma, or whole bOrdered By: Lyssa Aguila on 12-27-2024 GFR/1.73 sq M.predicted among non-blacks MDRD (S/P/Bld) [Vol rate/Area] 118 mL/min/{1.73_m2} >60 [facility] Comment on above: mL/min/1.73m2 CKD-EP I Creatinine Equation (2020) HIVon 12-27-2024 HIV Non-Reactive Normal Nonreactive [facility] Comment on above: Result Comment: Non- Reactive Reactive Repeatedly reactive samples must be confirmed according to CDC recommended confirmatory algorithms. The subresults for either HIVAG or AHIV can be used as an aid in the selection of the confirmation algorithm for reactive samples. Send out specimens with Reactive results to [facility] for confirmation. Order the HIV antibody detection and differentiation: #[id number] Performed By: #### L 501.0900, M100.2200, L7000.1800 #### [facility] [address] [place], [address] Hematocrit Auto (Bld) [Volum e fraction]Ordered By: Lyssa Aguila on 12-27-2024 Hematocrit (Bld) [Volume fraction] 41.4 % 37-47 [facility] Hemoglobin A1con 12-27-2024 HbA1c (Bld) [Mass fraction] 5.1 % Normal <=5.6 [facility] Comment on above: Result Comment: Norm al < 5.7 % Prediabetic 5.7 - 6.4 % Diabetic >or= 6.5 % Please note range changes. Performed By: #### L 501.0900, M100.2200, L7000.1800 #### [facility] [address] [place], [address] Hemoglobin A1c percentageOrd ered By: Lyssa Aguila on 12-27-2024 HbA1c (Bld) [Mass fraction] 5.1 % <5.7 [facility] Comment on above: Normal < 5.7 % Predi abetic 5.7 - 6.4 % Diabetic >or= 6.5 % Please note range changes. Hemoglobin measurementOrdere d By: Lyssa Aguila on 12-27-2024 Hemoglobin (Bld) [Mass/Vol] 13.9 g/dL 12.0-15.0 [facility] Hepatitis C Antibodyon 12-27 Hepatitis C Ab Non-Reactive Normal Nonreactive [facility] Comment on above: Result Comment: Reac tive: Presumptive evidence of antibodies to HCV. Follow CDC recommendations for supplemental testing. Non-Reactive: Antibodies to HCV were not detected; does not exclude the possibility of exposure to HCV Reactive Results are presumptive evidence of antibodies to HCV. Follow CDC recommendations for supplemental testing. Order confirmation testing: HCV Quant by PCR testing - HCVPCR #[id number] Non Reactive: < 0.8 Equivocal: >/= 0.8 to < 1.0 Reactive: >/= 1.0 The CDC requires that a reactive/equivocal HCV antibody result be sent out for confirmation. HCV Quant by PCR testing. Performed By: #### L 501.0900, M100.2200, L7000.1800 #### [facility] [address] [place], [address] Immature granulocytes/100 WB C Auto (Bld)Ordered By: Lyssa Aguila on 12-27-2024 Immature granulocytes/100 WBC (Bld) 0.500 % 0.0-0.9 [facility] Comment on above: IG% - Immature Granu locytes (promyelocytes, myelocytes and metamyelocytes) > 1% indicates that a LEFT SHIFT is Present. L3890.6102on 12-27-2024 HEP B Surf Ag Non-Reactive Normal Nonreactive [facility] Comment on above: Result Comment: Reac tive: Presumptive evidence of HBV. Repeatedly reactive samples must be confirmed using a neutralization test ([employer] HBsAg Confirmatory Test) Non-Reactive: HBsAg not detected; does not exclude the possibility of exposure to HBV Performed By: #### L 501.0900, M100.2200, L7000.1800 #### [facility] [address] [place], [address] L509.4006on 12-27-2024 Rubella IgG REAC Normal Nonreactive [facility] Comment on above: Result Comment: Anti body Result: Interpretation Non-Reactive: Non-Immune Reactive: Immune The following results were obtained with the [employer] Rubella IgG assay. Results from assays of other manufacturers cannot be used interchangeably. Performed By: #### L 501.0900, M100.2200, L7000.1800 #### [facility] [address] [place], [place], [address] Laboratory - Chemistry and C hemistry - challengeOrdered By: Lyssa Aguila on 12-27-2024 AST [Catalytic activity/Vol] 18 U/L <32 [facility] Laboratory - Chemistry and C hemistry - challengeOrdered By: Manda Aguirre on 12-27-2024 Bilirubin Ql (U) Negative [facility] Glucose Ql (U) Negative [facility] Ketones Ql (U) Negative [facility] pH (U) 6.5 [pH] [facility] Specific gravity (U) [Rel density] 1.010 [facility] Urobilinogen (U) [Mass/Vol] Negative [facility] Laboratory - Hematology and Cell countsOrdered By: Manda Aguirre on 12-27-2024 Hemoglobin Ql (U) Negative [facility] Laboratory - Microbiology an d Antimicrobial susceptibilityOrdered By: Lyssa Aguila on 12-27-2024 HBV surface Ag Ql (S) Non-Reactive Nonreactive [facility] Comment on above: Reactive: Presumptiv e evidence of HBV. Repeatedly reactive samples must be confirmed using a neutralization test ([employer] HBsAg Confirmatory Test)Non-Reactive: HBsAg not detected; does not exclude the possibility of exposure to HBV Laboratory - Specimen inform ationOrdered By: Manda Aguirre on 12-27-2024 Clarity (U) Clear [facility] Color (U) YELLOW [facility] Laboratory - UrinalysisOrder ed By: Manda Aguirre on 12-27-2024 Nitrite Ql (U) Negative [facility] Protein Ql (U) Negative [facility] MCV (mean corpuscular volume ) determinationOrdered By: Lyssa Aguila on 12-27-2024 MCV (RBC) [Entitic vol] 87.3 fL 81-99 [facility] Mean corpuscular hemoglobin (MCH) determinationOrdered By: Lyssa Aguila on 12-27-2024 MCH (RBC) [Entitic mass] 29.3 pg 27.0-32.0 [facility] Mean corpuscular hemoglobin concentration (MCHC) determinationOrdered By: Lyssa Aguila on 12-27-2024 MCHC (RBC) [Mass/Vol] 33.6 g/dL 32-36 [facility] Mean platelet volume determi nationOrdered By: Lyssa Aguila on 12-27-2024 Platelet mean volume (Bld) [Entitic vol] 10.2 fL 6.2-12.0 [facility] Monocyte percentageOrdered B y: Lyssa Aguila on 12-27-2024 Monocytes/100 WBC (Bld) 6.1 % 0-10 [facility] NATERAon 12-27-2024 NATURA SEE SCANNED REPORT Normal [facility] Comment on above: Performed By: #### L 500.4050, L100.0100, L501.9985, L3890.6102, L3890.6006, L509.4006, L3890.6301, L501.9520, BTS, L509.8002, L900.0098 #### [facility] [address] [place], [place], [address] Neutrophil percentageOrdered By: Lyssa Aguila on 12-27-2024 Neutrophils/100 WBC (Bld) 72.9 % High 47-70 [facility] No Panel InformationOrdered By: Lyssa Aguila on 12-27-2024 HIV (1&2) Antibody Non-Reactive Nonreactive [facility] Comment on above: Non-ReactiveReactive Repeatedly reactive samples must be confirmed according to CDC recommended confirmatory algorithms. The subresults for either HIVAG or AHIV can be used as an aid in the selection of the confirmation algorithm for reactive samples.Send out specimens with Reactive results to [facility] for confirmation.Order the HIV antibody detection and differentiation: #[id number] No Panel InformationOrdered By: Manda Aguirre on 12-27-2024 Urine Leukocytes Positive [facility] Urine Non-Hemolyzed Blood Negative [facility] Nucleated red blood cell per centageOrdered By: Lyssa Aguila on 12-27-2024 Nucleated RBC/100 WBC (Bld) [Ratio] 0 % 0-5 [facility] 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 Hel[employer] Office Visit Reporton 12-27-2024 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 [employer] 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 Visit Report [facility] [address], [address] [place] [address] OFFICE VISIT Date of Service: 12/27/24 MR#: [id number] Acct: [id number] Name: DEMARCUS ABAD Rep #: [id number] : 1990 Provider: LUCILA arriola Age/Sex: 34/F [place] [facility] [place]: [place] Intake Vital Signs 08/23/24 15:14 11/24/24 12:59 12/27/24 09:51 12/27/24 09:51 Height 5 ft 2 in 5 ft 2 in 5 ft 2 in 5 ft 2 in Weight: 168 lb 8 oz 166 lb BMI 30.8 30.3 BP 108/74 115/73 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 Is patient in pain?: No Allergies Penicillins Allergy (Unknown, Verified 12/27/24 09:51) Unknown Medications ???Medication ???Instructions ???Recorded ???Confirmed ???Type ferrous sulfate 325 mg (65 mg 325 mg PO DAILY 09/05/23 12/27/24 History iron) tablet (Feosol) multivit-min no.71-iron fum 28 cap PO 11/12/24 12/27/24 History mg-folate no.1 1 mg-dha 300 mg capsule (PNV-Serafina) nitrofurantoin 100 mg PO BID 7 days #14 caps 12/0612/27/24 Rx monohydrate/macrocry stals 100 mg capsule (Macrobid) Last Menstrual Period: 09/27/24 Zika: Zika virus screening: Negative : No PFSH PFSH Medical History Hx of varicose veins of lower extremity Depression Nodular goiter HPV (human papilloma virus) infection Thyroid disorder Pre-eclampsia Abnormal glucose Anemia Surgical History History of bunionectomy of right great toe [place] teeth extracted History of colposcopy Family History Mother Hypertension Father Diabetes Aunt Thyroid disorder Maternal- unknown type Social History adopted: No household members: spouse and children housing: house number of children: 2 current occupational status: unemployed current occupation: [employer] pets and animals: Yes (no litter [...] activity do you participate in: none [place]/evangelical: [employer] seatbelt use: always do you feel safe at home: Yes 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 Date Name GA/Weeks Outcome Route Bth Weight Gen Labor Lgth Anesthesia Del Locatn Provider FOB Unknown 08/2024 6 spontaneous 04/30/08 Shlomo 36 live - 6# Male epidural [facility] Taye 08/08/21 Emalie 36 live - 6lbs 14oz Female epidural [facility] [place] Delivery Date: 04/30/08 Last Updated by: Manda Aguirre MEDICAL ASSISTANT FLOAT, MEDICAL ASSISTANT FLOAT-C Induced to preeclampsia, teen Delivery Date: 08/08/21 [...] CRL c (more content not included)... Normal [facility] Platelet countOrdered By: Miko Aguila on 12-27-2024 Platelets (Bld) [#/Vol] 236 10*3/uL 150-450 [facility] Potassium measurement (mass/ volume)Ordered By: Lyssa Aguila on 12-27-2024 Potassium (Unsp spec) [Mass/Vol] 3.9 mmol/L 3.3-5.1 [facility] Comment on above: Previous reported re sult: 4.0 mmol/LEdited by: ALEXANDER on 12/27/24:1342 AMENDED REPORT 12/27/24 1342 K previously reported as: 4.0 mmol/L RBC Auto (Bld) [#/Vol]Ordere d By: Lyssa Aguila on 12-27-2024 RBC (Bld) [#/Vol] 4.74 10*6/uL 4.2-5.4 [facility] Serum creatinine measurement (mass/volume)Ordered By: Lyssa Aguila on 12-27-2024 Creatinine [Mass/Vol] 0.62 mg/dL Low 0.70-1.20 [facility] Comment on above: Previous reported re sult: 0.65 mg/dLEdited by: ALEXANDER on 12/27/24:1342 AMENDED REPORT 12/27/24 1342 CREAT,SERUM previously reported as: 0.65 L mg/dL Serum globulin measurementOr dered By: Lyssa Aguila on 12-27-2024 Globulin (S) [Mass/Vol] 3.2 g/dL 2.2-4.2 [facility] Comment on above: Previous reported re sult: 2.6 g/dLEdited by: ALEXANDER on 12/27/24:1342 AMENDED REPORT 12/27/24 1342 GLOB previously reported as: 2.6 g/dL Serum glucose measurement (m ass/volume)Ordered By: Lyssa Aguila on 12-27-2024 Glucose [Mass/Vol] 72 mg/dL 70-99 [facility] Comment on above: Previous reported re sult: 74 mg/dLEdited by: ALEXANDER on 12/27/24:1342 AMENDED REPORT 12/27/24 1342 GLU previously reported as: 74 mg/dL Serum or plasma alanine rose otransferase (ALT) measurementOrdered By: Lyssa Aguila on 12-27-2024 ALT [Catalytic activity/Vol] 16 U/L <35 [facility] Comment on above: Previous reported re sult: 15 U/LEdited by: NADEEMS on 12/27/24:1342 AMENDED REPORT 12/27/24 134 ALT previously reported as: 15 U/L Serum or plasma albumin david urement (mass/volume)Ordered By: Lyssa Aguila on 12-27-2024 Albumin [Mass/Vol] 3.8 g/dL 3.5-5.0 [facility] Comment on above: Previous reported re sult: 4.1 g/dLEdited by: ALEXANDER on 12/27/24:1342 AMENDED REPORT 12/27/24 1342 ALB previously reported as: 4.1 g/dL Serum or plasma albumin/glob ulin mass ratioOrdered By: Lyssa Aguila on 12-27-2024 Albumin/Globulin [Mass ratio] 1.2 {ratio} 0.9-2.4 [facility] Comment on above: Previous reported re sult: 1.5 RATIOEdited by: ALEXANDER on 12/27/24:1342 AMENDED REPORT 12/27/24 1342 A/G previously reported as: 1.5 RATIO Serum or plasma alkaline brayan sphatase measurementOrdered By: Lyssa Aguila on 12-27-2024 ALP [Catalytic activity/Vol] 58 U/L 35-104 [facility] Comment on above: Previous reported re sult: 61 U/LEdited by: ALEXANDER on 12/27/24:1342 AMENDED REPORT 12/27/24 134 ALK P previously reported as: 61 U/L Serum or plasma calcium david urement (mass/volume)Ordered By: Lyssa Aguila on 12-27-2024 Calcium [Mass/Vol] 9.1 mg/dL 7.6-11.0 [facility] Comment on above: Previous reported re sult: 9.4 mg/dLEdited by: AUTOINS on 12/27/24:1342 AMENDED REPORT 12/27/241341 CA previously reported as: 9.4 mg/dL Serum or plasma urea nitroge n measurement (mass/volume)Ordered By: Lyssa Aguila on 12-27-2024 Urea nitrogen [Mass/Vol] 5 mg/dL 4-19 [facility] Sodium levelOrdered By: Yuliana Aguila on 12-27-2024 Sodium [Moles/Vol] 135 mmol/L 133-145 [facility] Syphilis Antibodieson 2024 Syphilis Abs Non-Reactive Normal Nonreactive [facility] Comment on above: Performed By: #### L 501.0900, M100.2200, L7000.1800 #### [facility] [address], [place], [id number] TSH DL <= 0.005 mIU/L QnOrde red By: Lyssa Aguila on 12-27-2024 TSH Qn 0.026 uIU/mL Low 0.300-4.200 [facility] Thyroid Stim Hormone (TSH)on 12-27-2024 TSH 0.026 uIU/mL Low 0.300-4.200 [facility] Comment on above: Performed By: #### L 501.0900, M100.2200, L7000.1800 #### [facility] [address], [place], [id number] Total proteinOrdered By: Jose Aguila on 12-27-2024 Protein [Mass/Vol] 7.0 g/dL 5.9-8.4 [facility] Comment on above: Previous reported re sult: 6.7 g/dLEdited by: AUTOINS on 12/27/24:1342 AMENDED REPORT 12/27/241341 T PROT previously reported as: 6.7 g/dL Type AND Screenon 12-27-2024 Ab SCREEN GEL Negative Normal [facility] Comment on above: Order Comment: PN Performed By: #### L 501.0900, M100.2200, L7000.1800 #### [facility] [address] [place], [address] Urine cultureOrdered By: Nishant Aguirre on 12-27-2024 Bacteria identified Cx Nom (U) Culture exhibits no growth. [facility] White blood cell (WBC) count Ordered By: Lyssa Aguila on 12-27-2024 WBC (Bld) [#/Vol] 7.8 10*3/uL 4.4-11.0 [facility] Chlamydia/GC GEETA aptimaon CHLAMY,NUC ACID Negative Normal Negative [facility] Comment on above: Performed By: #### L 501.0900, M100.2200, L7000.1800 #### [facility] [address] [place], [address] GC BY NUC ACID Negative Normal Negative [facility] Comment on above: Result Comment: Perf ormed at: =G - [facility] [address] [id number] [place] Support Worker: Patrizia De La Torre MD, Phone: [phone] Performed By: #### L 501.0900, M100.2200, L7000.1800 #### [facility] [address] [place], [address] Protein+Creatinine Ratio,Uri neon 11-25-2024 PROT:CRE RATIO 51 mg/g CRE Normal 0-200 [facility] Comment on above: Performed By: #### L 501.0900, M100.2200, L7000.1800 #### [facility] [address] [place], [address] Protein (U) [Mass/Vol] 14.1 mg/dL High 0.0-12.0 [facility] Comment on above: Performed By: #### L 501.0900, M100.2200, L7000.1800 #### [facility] [address] [place], [address] UR CREAT 277.00 mg/dL High 28.00-217.00 [facility] Comment on above: Performed By: #### L 501.0900, M100.2200, L7000.1800 #### [facility] [address] [place], [address] Urine Cultureon 11-25-2024 URC Culture exhibits no growth. Normal [facility] Comment on above: Performed By: #### L 501.0900, M100.2200, L7000.1800 #### [facility] [address] [place], [place], [id number] Chlamydia trachomatis rRNA d etection by probe and target amplification methodOrdered By: Lyssa Aguila on 11-24-2024 C. trachomatis rRNA GEETA+probe Ql (Unsp spec) Negative Negative [facility] Neisseria gonorrhoeae nuclei c acid detection by amplified probe techniqueOrdered By: Lyssa Aguila on 11-24-2024 N. gonorrhoeae DNA GEETA+probe Ql (Unsp spec) Negative Negative [facility] Comment on above: Performed at: =[address] [id number] Director: Patrizia De La Torre MD, Phone: [phone] 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 Helper Office Visit Reporton 11-24-2024 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 Helper Office Visit Report [facility] [address], [address] [place] [address] OFFICE VISIT Date of Service: 11/24/24 MR#: [id number] Acct: [id number] Name: DEMARCUS ABAD Rep #: [id number] : 1990 Provider: SULLY Boudreaux ams Age/Sex: 34/F [place] [facility] [place]: Signed Intake Vital Signs 08/23/24 15:14 11/24/24 12:59 Height 5 ft 2 in 5 ft 2 in Weight: 166 lb 168 lb 8 oz BMI 30.3 30.8 BP 119/77 108/74 Intake Visit Reasons: NOB LMP 09/27 Chief Complaint: 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 Required: No Is patient in pain?: No Allergies Penicillins Allergy (Unknown, Verified 11/24/24 12:57) Unknown Medications ???Medication ???Instructions ???Recorded ???Confirmed ???Type ferrous sulfate 325 mg (65 mg 325 mg PO DAILY 09/05/23 11/24/24 History iron) tablet (Feosol) multivit-min no.71-iron fum 28 cap PO 11/12/24 11/24/24 History mg-folate no.1 1 mg-dha 300 mg capsule (PNV-Serafina) Last Menstrual Period: 09/27/24 : Yes PFSH PFSH Medical History Hx of varicose veins of lower extremity Depression Nodular goiter HPV (human papilloma virus) infection Thyroid disorder Pre-eclampsia Abnormal glucose Anemia Surgical History History of bunionectomy of right great toe [place] teeth extracted History of colposcopy Family History Mother Hypertension Father Diabetes Aunt Thyroid disorder Maternal- unknown type Social History adopted: No household members: spouse and children housing: house number of children: 2 service: No current occupational status: unemployed current occupation: [employer] pets and animals: Yes (no litter [...] activity do you participate in: none [place]/evangelical: [employer] seatbelt use: always do you feel safe [...] 36 live - 6lbs 14oz Female epidural [facility] [place] Delivery Date: 04/30/08 Last Updated by: Manda Aguirre MEDICAL ASSISTANT FLOAT, MEDICAL ASSISTANT FLOAT-C Induced to preeclampsia, teen Delivery Date: 08/08/21 [...] 09/27/24 Repo (more content not included)... Normal [facility] Random urine creatinine david urement (mass/volume)Ordered By: Lyssa Aguila on 11-24-2024 Creatinine Unsp time (U) [Mass/Vol] 277.00 mg/dL High 28.00-217.00 [facility] Urine cultureOrdered By: Jose Aguila on 11-24-2024 Bacteria identified Cx Nom (U) Culture exhibits no growth. [facility] Urine protein measurement (m ass/volume)Ordered By: Lyssa Aguila on 11-24-2024 Protein (U) [Mass/Vol] 14.1 mg/dL High 0.0-12.0 [facility] Urine protein/creatinine mas s ratioOrdered By: Lyssa Aguila on 11-24-2024 Protein/Creatinine (U) [Mass ratio] 51 mg/g CRE 0-200 [facility] Serum human chorionic gonado tropin detection for pregnancyOrdered By: Lyssa Aguila on 08-25-2024 HCG ( test) Ql 10 mIU/mL High <4 [facility] Comment on above: hCG levels with Gest ational AgeGestational Age hCG mIU/mL (IU/L)0.2 - 1 week 5 - 501-2 weeks 50 - 5002-3 weeks 100 - 72091-3 weeks 500 - 929659-7 weeks 1000 - 273297-7 weeks 18936 - 100,0006-8 weeks 22131 - 200,0002-3 months 89635 - 100,000 hCG Titer Quant., Serumon HCG QUANT. 10 mIU/mL High 1-3 [facility] Comment on above: Order Comment: PT DI D NOT WANT TO DO DR GALLEGOS ORDERS THAT ARE INTERNAL. Result Comment: hCG levels with Gestational Age Gestational Age hCG mIU/mL (IU/L) 0.2 - 1 week 5 - 50 1-2 weeks 50 - 500 2-3 weeks 100 - 5000 3-4 weeks 500 - 95352 4-5 weeks 1000 - 75450 5-6 weeks 56672 - 100,000 6-8 weeks 07348 - 200,000 2-3 months 21604 - 100,000 Performed By: #### L 501.0900, M100.2200, L7000.1800 #### [facility] [address] [place], [address] 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 Helper Office Visit Reporton 08-23-2024 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 Helper Office Visit Report [facility] [address], [address] [place] [address] OFFICE VISIT Date of Service: 08/23/24 MR#: [id number] Acct: [id number] Name: DEMARCUS ABAD Rep #: [id number] : 1990 Provider: SULLY Boudreaux ams Age/Sex: 34/F [place] [facility] [place]: Signed Intake Vital Signs 08/23/24 09:05 [...] 08/23/24 08/23/24 History capsule ( DHA) [facility] Medical History Abnormal glucose Anemia HPV (human [...] Shlomo 36 live - 6# Male epidural [facility] Taye 08/08/21 Emalie 36 live - 6lbs 14oz Female [facility] Vand e Velde Delivery Date: 04/30/08 Last Updated by: Manda Aguirre MEDICAL ASSISTANT FLOAT, MEDICAL ASSISTANT FLOAT-C Induced to preeclampsia, teen Delivery Date: 08/08/21 [...] RTO PRN/annual 08/23/24 1608 Date Lyssa Aguila [facility] Cosigner Signature: Date __ (more content not included)... Normal [facility] Serum human chorionic gonado tropin detection for pregnancyOrdered By: Lyssa Aguila on 08-23-2024 HCG ( test) Ql 28 mIU/mL High <4 [facility] Comment on above: hCG levels with Gest ational AgeGestational Age hCG mIU/mL (IU/L)0.2 - 1 week 5 - 501-2 weeks 50 - 5002-3 weeks 100 - 56244-8 weeks 500 - 860973-0 weeks 1000 - 625383-8 weeks 11915 - 100,0006-8 weeks 90204 - 200,0002-3 months 77799 - 100,000 hCG Titer Quant., Serumon HCG QUANT. 28 mIU/mL High 1-3 [facility] Comment on above: Order Comment: viabi lity Result Comment: hCG levels with Gestational Age Gestational Age hCG mIU/mL (IU/L) 0.2 - 1 week 5 - 50 1-2 weeks 50 - 500 2-3 weeks 100 - 5000 3-4 weeks 500 - 62733 4-5 weeks 1000 - 17608 5-6 weeks 69097 - 100,000 6-8 weeks 65322 - 200,000 2-3 months 10166 - 100,000 Performed By: #### L 700.8000 #### [facility] [address] [place], [place], [id number] Laboratory - Chemistry and C hemistry - challengeOrdered By: Denis Galdamez on 03-11-2023 Free T4 [Mass/Vol] 0.96 ng/dL 0.76-1.46 [facility] No Panel InformationOrdered By: Denis Galdamez on 03-11-2023 Free Triiodothyronine (T3) pg/dL 3.2 pg/mL 2.18-3.98 [facility] Thyroid Stimulating Hormone (TSH) 0.41 uIU/mL 0.358-3.74 [facility] Serum or plasma thyroperoxid ase antibody assay (units/volume)Ordered By: Denis Galdamez on 03-11-2023 TPO Ab Qn 10 [IU]/mL 0-34 [facility] Comment on above: Performed at: [address] [id number] Director: Robert Peters PhD, Phone: [phone] PREGUon 09-19-2022 HCG ( test) Ql (U) Negative Normal [facility] ([place]) Comment on above: Performed By: #### P REGU #### [place] [address] [address] test (u) int Not detected Invalid Interpretation Code [facility] ([place]) Comment on above: Performed By: #### P REGU #### [place] [address] [address] Laboratory - Chemistry and C hemistry - challengeon 03-15-2022 Free T4 [Mass/Vol] 0.99 ng/dL 0.76-1.46 [facility] Work Phone: No Panel Informationon 03-15 Free Triiodothyronine (T3) pg/dL 3.3 pg/mL 2.18-3.98 [facility] Work Phone: Thyroid Stimulating Hormone (TSH) 0.34 uIU/mL 0.358-3.74 [facility] Work Phone: CNPRashida 12-27-2020 CNPN Telephone (OBGYWM) DEMARCUS TAMEZ ([id number]) 1990 F Date Time Provider Department 12/27/20 [...] to call patient. Unable to leave message. iAgreet message sent. Lorenza Zheng RN Allergies As of Date: 12/27/2020 Noted Allergy Reaction BUPROPION 05/16/2016 5 - Intolerance Comments: headache PENICILLINS 05/27/2005 Date Reviewed: 10/30/2020 Reviewed by: Yanique Rodriguez LPN - Fully Assessed Reason for Visit: Early OB Cramping [Other] Primary Visit Diagnosis:Pelvic pain during [O26.899, R10.2] Order(s):HCG QUANTITATIVE [SQHCGQT] Order #: [id number] STANDING Prescriptions as of 12/27/2020 Sig: -1 ORAL Take by mouth. Problem List As Of Date 12/27/2020 Noted Resolved Thyroid goiter [E04.9] 12/30/2014 Anemia [D64.9] 01/16/2015 08/16/2016 Attention and concentration deficit [R41.840] 04/19/2015 Iron deficiency anemia secondary to inadequate *04/19/2015 Encounter Status:Closed by ROBERT AZAR RN [facility] TAME[facility] ([id number]) 1990 F Date Time Provider Department 11/01/20 [...] [D64.9] Order(s):CBC + DIFF [SQCBCDIF] Order #: [id number] FUTURE IRON + TIBC [SQIRON] Order #: [id number] FUTURE Prescriptions as of 11/01/2020 Sig: -1 ORAL Take by mouth. Problem List As Of Date 11/01/2020 Noted Resolved Thyroid goiter [E04.9] 12/30/2014 Anemia [D64.9] 01/16/2015 08/16/2016 Attention and concentration deficit [R41.840] 04/19/2015 Iron deficiency anemia secondary to inadequate *04/19/2015 Encounter Status:Closed by YANIQUE RODRIGUEZ LPN on 11/01/20 Normal [facility] CBC and Differentialon 10-31 Abs Baso 0.03 k/uL Normal <0.11 [facility] Comment on above: Performed By: #### C BCDIF, CMP #### [address] [place], [place] [address] Abs [place] 0.50 k/uL Normal <0.87 [facility] Comment on above: Performed By: #### C BCDIF, CMP #### [address] [place], [place] [id number] Abs Neut 2.90 k/uL Normal 1.45-7.50 [facility] Comment on above: Performed By: #### C BCDIF, CMP #### [facility] [address] [place], [place] [address] Absolute nRBC <0.01 Normal <0.01 [facility] Comment on above: Performed By: #### C BCDIF, CMP #### [facility] [address] [place], [place] [address] Basophils/100 WBC (Bld) 0.5 % Normal C [facility] Comment on above: Performed By: #### C BCDIF, CMP #### [address] [place] [phone] DTYPE Auto Diff Normal [facility] Comment on above: Performed By: #### C BCDIF, CMP #### [place] [phone] Eosinophils (Bld) [#/Vol] 0.12 10*3/uL Normal <0.46 [facility] Comment on above: Performed By: #### C BCDIF, CMP #### [place] [phone] Eosinophils/100 WBC (Bld) 1.9 % Normal [facility] Comment on above: Performed By: #### C BCDIF, CMP #### [place] [phone] Erythrocyte distribution width (RBC) [Ratio] 14.6 % Normal 11.5-15.0 [facility] Comment on above: Performed By: #### C BCDIF, CMP #### [place] [phone] Hematocrit (Bld) [Volume fraction] 37.2 % Normal 36.0-46.0 [facility] Comment on above: Performed By: #### C BCDIF, CMP #### [address] [place] [phone] Hemoglobin (Bld) [Mass/Vol] 11.1 g/dL Low 11.5-15.5 [facility] Comment on above: Performed By: #### C BCDIF, CMP #### [address] [place] [phone] Lymphocytes (Bld) [#/Vol] 2.78 10*3/uL Normal 1.00-4.00 [facility] Comment on above: Performed By: #### C BCDIF, CMP #### [facility] [address] [place], [place] [address] Lymphocytes/100 WBC (Bld) 43.8 % Normal [facility] Comment on above: Performed By: #### C BCDIF, CMP #### [facility] [address] [place], [place] [address] MCH 24.9 pG Low 26.0-34.0 [facility] Comment on above: Performed By: #### C BCDIF, CMP #### [address] [place], [place] [address] MCHC (RBC) [Mass/Vol] 29.8 g/dL Low 30.5-36.0 [facility] Comment on above: Performed By: #### C BCDIF, CMP #### [address] [place] [address] MCV (RBC) [Entitic vol] 83.4 fL Normal 80.0-100.[address] [facility] Comment on above: Performed By: #### C BCDIF, CMP #### [address] [place], [place] [address] Monocytes/100 WBC (Bld) 7.9 % Normal [facility] Comment on above: Performed By: #### C BCDIF, CMP #### [address] [place], [place] [address] Neutrophils/100 WBC (Bld) 45.9 % Normal [facility] Comment on above: Performed By: #### C BCDIF, CMP #### [address] [place], [place] [address] NRBCs 0.0 /100 WBC Normal 0 [facility] Comment on above: Performed By: #### C BCDIF, CMP #### [address] [place], [place] [address] Platelet mean volume (Bld) [Entitic vol] 10.3 fL Normal 9.0-12.7 [facility] Comment on above: Performed By: #### C BCDIF, CMP #### [facility] [place] [address] Platelets (Bld) [#/Vol] 304 10*3/uL Normal 150-400 [facility] Comment on above: Performed By: #### C BCDIF, CMP #### [facility] [address] [place] [address] RBC (Bld) [#/Vol] 4.46 10*6/uL Normal 3.90-5.20 [facility] Comment on above: Performed By: #### C BCDIF, CMP #### [facility] [address] [place] [address] WBC (Bld) [#/Vol] 6.35 10*3/uL Normal 3.70-11.00 [facility] Comment on above: Performed By: #### C BCDIF, CMP #### [address] [place] [address] Jennifer 10-31-2020 [facility] TAMEZ ([id number]) 1990 F Date Time Provider Department 10/31/20 [facility] During your visit today, we recorded the following information about you: DARIN Appiah 10/31/2020 5:21 PM Signed Please advise d-dimer was negative. Thanks, CARSON Elizbaeth Ma 10/31/2020 5:25 PM Signed Pt notified [...] by ANMOL ARGUELLO MA on 10/31/20 Normal [facility] Comp Metabolic Panelon 10-31 Albumin [Mass/Vol] 4.3 g/dL Normal 3.9-4.9 [facility] Comment on above: Performed By: #### C BCDIF, CMP #### [facility] [address] [place], [place] [address] ALP [Catalytic activity/Vol] 57 U/L Normal 34-123 [facility] Comment on above: Performed By: #### C BCDIF, CMP #### [facility] [address] [place], [place] [address] ALT [Catalytic activity/Vol] 13 U/L Normal 7-38 [facility] Comment on above: Performed By: #### C BCDIF, CMP #### [facility] [address] [place], [place] [address] Anion gap [Moles/Vol] 12 mmol/L Normal 9-18 [facility] Comment on above: Performed By: #### C BCDIF, CMP #### [facility] [address] [place], [place] [address] AST [Catalytic activity/Vol] 28 U/L Normal 13-35 [facility] Comment on above: Performed By: #### C BCDIF, CMP #### [facility] [address] [place], [place] [address] Bilirubin [Mass/Vol] mg/dL Low 0.2-1.3 [facility] Comment on above: Performed By: #### C BCDIF, CMP #### [facility] [address] [place] [id number] Calcium [Mass/Vol] 9.3 mg/dL Normal 8.5-10.2 [facility] Comment on above: Performed By: #### C BCDIF, CMP #### [address] [place] [address] Chloride [Moles/Vol] 105 mmol/L Normal 97-105 [facility] Comment on above: Performed By: #### C BCDIF, CMP #### [place] [address] CO2 [Moles/Vol] 23 mmol/L Normal 22-30 [facility] Comment on above: Performed By: #### C BCDIF, CMP #### [address] [place] [address] Creatinine [Mass/Vol] 0.82 mg/dL Normal 0.58-0.96 [facility] Comment on above: Performed By: #### C BCDIF, CMP #### [address] [place] [address] eGFR- Amer. >60 Normal [facility] Comment on above: Performed By: #### C BCDIF, CMP #### [place] [address] eGFR-All Other Races >60 Normal [facility] Comment on above: Result Comment: eGFR (Estimated [...] Performed By: #### C ERICA CMP #### [facility] [address] [place], [place] [address] Glucose [Mass/Vol] 76 mg/dL Normal 74-99 [facility] Comment on above: Result Comment: The [place] Diabetes Association (ADA) provides guidance for cutoff [...] Standards of Medical Care in Diabetes 2016, [place] Diabetes Association. Diabetes Care. 2016.39(Suppl 1). Performed By: #### C ERICA CMP #### [facility] [address] [place], [place] [address] Potassium [Moles/Vol] 3.9 mmol/L Normal 3.7-5.1 [facility] Comment on above: Performed By: #### C BCNAYAN, CMP #### [facility] globa.ly [address], [place] [address] Protein [Mass/Vol] 7.0 g/dL Normal 6.3-8.0 [facility] Comment on above: Performed By: #### C BCNAYAN, CMP #### [facility] [address], [place] [address] Sodium [Moles/Vol] 140 mmol/L Normal 136-144 [facility] Comment on above: Performed By: #### C MARYCHUY MALDONADO #### [facility] [address] [place], [place] [id number] Urea nitrogen [Mass/Vol] 11 mg/dL Normal 7-21 [facility] Comment on above: Performed By: #### C BCDIF, CMP #### [facility] [address] [place], [place] [id number] D dimeron 10-31-2020 D dimer Test sent to [facility]. Normal <500 [facility] Comment on above: Result Comment: Acco unt Credited MARGARETE CNOVon 10-30-2020 CNOV Office Visit (FAMPWS) DEMARCUS TAMEZ ([id number]) 1990 F Date Time Provider Department 10/30/20 [...] Thyroid nodu (more content not included)... Normal [facility] CNOVon 09-11-2020 CNOV Office Visit (UCWSTR) DEMARCUS TAMEZ ([id number]) 1990 F Date Time Provider Department 09/11/20 8:45 AM JACEY GALDAMEZ) [facility] During your visit today, we recorded [...] by JACEY GALDAMEZ CNP on 09/11/20 Normal [facility] Vital Signs Date Time Vital Sign Value Performing Clinician Chetan oswald 04-28-2025 10:42-0400 Body height 157.[address] Beatriz Escobar MD Work Phone: [facility] 04-28-2025 10:42-0400 Body mass index (BMI) [Ratio] 34.2 kg/m2 Dr. Beatriz Escobar MD Work Phone: [facility] 04-28-2025 10:42-0400 Body weight 84.[address] Beatriz Escobar MD Work Phone: [facility] 04-28-2025 10:42-0400 Diastolic blood pressure 71 mm[Hg] Dr. Beatriz Escobar MD Work Phone: [facility] 04-28-2025 10:42-0400 Systolic blood pressure 114 mm[Hg] Dr. Beatriz Escobar MD Work Phone: 4(514)710-683674 [place] [address] 04-18-2025 10:56-0400 Body mass index (BMI) [Ratio] 33.5 kg/m2 Dr. Beatriz Escobar MD Work Phone: 2(846)438-764574 [place] [address] 04-18-2025 10:56-0400 Body weight 83.[address] Beatriz Escobar MD Work Phone: 8(666)002-770874 [place] [address] 04-18-2025 10:56-0400 Diastolic blood pressure 71 mm[Hg] Dr. Beatriz Escobar MD Work Phone: 9(796)677-657874 [place] [address] 04-18-2025 10:56-0400 Systolic blood pressure 106 mm[Hg] Dr. Beatriz Escobar MD Work Phone: 1(491)796-573374 [place] [address] 04-02-2025 18:41-0400 Body temperature 97.9 [degF] Dr. Beartiz Escobar MD Work Phone: 5(758)849-594774 [place] [address] 04-02-2025 18:41-0400 Diastolic blood pressure 52 mm[Hg] Dr. Beatriz Escobar MD Work Phone: 0(385)121-086874 [place] [address] 04-02-2025 18:41-0400 Heart rate 75 /min Dr. Beatriz Escobar MD Work Phone: 1(917)836-122474 [place] [address] 04-02-2025 18:41-0400 Respiratory rate 16 /min Dr. Beatriz Escobar MD Work Phone: 3(781)246-823674 [place] [address] 04-02-2025 18:41-0400 SaO2% (BldA) [Mass fraction] 96 % Dr. Beatriz Escobar MD Work Phone: 2(198)081-478674 [place] [address] 04-02-2025 18:41-0400 Systolic blood pressure 94 mm[Hg] Dr. Beatriz Escobar MD Work Phone: 5(424)035-777674 [place] [address] 04-02-2025 18:35-0400 Body height 157.[address] Beatriz Escobar MD Work Phone: 1(004)987-006374 [place] [address] 04-02-2025 18:35-0400 Body mass index (BMI) [Ratio] 33.4 kg/m2 Dr. Beatriz Escobar MD Work Phone: 4(459)110-858574 [place] [address] 04-02-2025 18:35-0400 Body weight 82.[address] Beatriz Escobar MD Work Phone: 8(314)400-873774 [place] [address] 03-22-2025 10:36-0400 Body height 157.[address] Beatriz Escobar MD Work Phone: 8(618)022-258674 [place] [address] 03-22-2025 10:32-0400 Body mass index (BMI) [Ratio] 32.5 kg/m2 Dr. Beatriz Escobar MD Work Phone: 5(649)376-405074 [place] [address] 03-22-2025 10:32-0400 Body weight 80.[address] Beatriz Escobar MD Work Phone: 2(658)587-224974 [place] [address] 03-22-2025 10:32-0400 Diastolic blood pressure 75 mm[Hg] Dr. Beatriz Escobar MD Work Phone: 8(918)105-739574 [place] [address] 03-22-2025 10:32-0400 Systolic blood pressure 111 mm[Hg] Dr. Beatriz Escobar MD Work Phone: 6(096)908-778274 [place] [address] 02-21-2025 11:01-0400 Body height 157.[address] Beatriz Escobar MD Work Phone: 1(312)548-577374 [place] [address] 02-21-2025 11:01-0400 Body mass index (BMI) [Ratio] 31.1 kg/m2 Dr. Beatriz Escobar MD Work Phone: 6(304)394-367674 [place] [address] 02-21-2025 11:01-0400 Body weight 77.[address] Beatriz Escobar MD Work Phone: 1(571)640-781774 [place] [address] 02-21-2025 11:01-0400 Diastolic blood pressure 68 mm[Hg] Dr. Beatriz Escobar MD Work Phone: 6(251)178-657974 [place] [address] 02-21-2025 11:01-0400 Systolic blood pressure 103 mm[Hg] Dr. Beatriz Escobar MD Work Phone: [facility] 01-25-2025 13:59-0400 Body height 157.[address] Beatriz Escobar MD Work Phone: [facility] 01-25-2025 13:59-0400 Body mass index (BMI) [Ratio] 30.5 kg/m2 Dr. Beatriz Escobar MD Work Phone: 7(510)530-884674 [place] [address] 01-25-2025 13:59-0400 Body weight 75.[address] Beatriz Escobar MD Work Phone: 6(476)228-056174 [place] [address] 01-25-2025 13:59-0400 Diastolic blood pressure 73 mm[Hg] Dr. Beatriz Escobar MD Work Phone: 1(979)295-490674 [place] [address] 01-25-2025 13:59-0400 Systolic blood pressure 111 mm[Hg] Dr. Beatriz Escobar MD Work Phone: 9(950)714-057774 [place] [address] 01-10-2025 13:57-0400 Body height 157.[address] Beatriz Escobar MD Work Phone: 2(062)177-459074 [place] [address] 01-10-2025 13:54-0400 Body mass index (BMI) [Ratio] 30.2 kg/m2 Dr. Beatriz Escobar MD Work Phone: [facility] 01-10-2025 13:54-0400 Body weight 75.[address] Beatriz Escobar MD Work Phone: 9(353)689-710423 [place] [address] 01-10-2025 13:54-0400 Diastolic blood pressure 68 mm[Hg] Dr. Beatriz Escobar MD Work Phone: 0(244)205-380874 [place] [address] 01-10-2025 13:54-0400 Systolic blood pressure 114 mm[Hg] Dr. Beatriz Escobar MD Work Phone: 5(752)073-893174 [place] [address] 12-30-2024 13:27-0400 Body height 157.[address] Beatriz Escobar MD Work Phone: 0(167)640-381174 [place] [address] 12-30-2024 13:27-0400 Body mass index (BMI) [Ratio] 30.5 kg/m2 Dr. Beatriz Escobar MD Work Phone: [facility] 12-30-2024 13:27-0400 Body weight 75.[address] Beatriz Escobar MD Work Phone: [facility] 12-30-2024 13:27-0400 Diastolic blood pressure 72 mm[Hg] Dr. Beatriz Escobar MD Work Phone: 2(962)475-366323 [place] [address] 12-30-2024 13:27-0400 Heart rate 71 /min Dr. Beatriz Escobar MD Work Phone: 9(215)964-553274 [place] [address] 12-30-2024 13:27-0400 SaO2% (BldA) [Mass fraction] 97 % Dr. Betariz Escobar MD Work Phone: 1(065)555-864674 [place] [address] 12-30-2024 13:27-0400 Systolic blood pressure 107 mm[Hg] Dr. Beatriz Escobar MD Work Phone: 3(168)965-973359 [address] 12-27-2024 09:51-0400 Body height 157.[address] Beatriz Escobar MD Work Phone: 7(168)163-774974 [place] [address] 12-27-2024 09:51-0400 Body mass index (BMI) [Ratio] 30.3 kg/m2 Dr. Beatriz Escobar MD Work Phone: 3(198)561-112774 [place] [address] 12-27-2024 09:51-0400 Body weight 75.[address] Beatriz Escobar MD Work Phone: 0(210)314-988723 [place] [address] 12-27-2024 09:51-0400 Diastolic blood pressure 73 mm[Hg] Dr. Beatriz Escobar MD Work Phone: 2(826)640-267774 [place] [address] 12-27-2024 09:51-0400 Systolic blood pressure 115 mm[Hg] Dr. Beatriz Escobar MD Work Phone: 0(566)109-868074 [place] [address] 11-24-2024 12:59-0400 Body height 157.[address] Beatriz Escobar MD Work Phone: [facility] 11-24-2024 12:59-0400 Body mass index (BMI) [Ratio] 30.8 kg/m2 Dr. Beatriz Escobar MD Work Phone: [facility] 11-24-2024 12:59-0400 Body weight 76.[address] Beatriz Escobar MD Work Phone: 6(568)456-957423 [place] [address] 11-24-2024 12:59-0400 Diastolic blood pressure 74 mm[Hg] Dr. Beatriz Escobar MD Work Phone: 8(098)148-167459 [address] 11-24-2024 12:59-0400 Systolic blood pressure 108 mm[Hg] Dr. Beatriz Escobar MD Work Phone: 0(139)739-336274 [place] [address] 08-23-2024 15:14-0500 Body mass index (BMI) [Ratio] 30.3 kg/m2 Dr. Beatriz Escobar MD Work Phone: 1(167)075-195823 [place] [address] 08-23-2024 15:14-0500 Body weight 75.[address] Beatriz Escobar MD Work Phone: 9(004)240-617959 [address] 08-23-2024 15:14-0500 Diastolic blood pressure 77 mm[Hg] Dr. Beatriz Escobar MD Work Phone: 5(603)782-450223 [place] [address] 08-23-2024 15:14-0500 Systolic blood pressure 119 mm[Hg] Dr. Beatriz Escobar MD Work Phone: 7(487)846-217623 [place] [address] 10-29-2022 14:07-0400 Body height 157.[address] Antony Escobar Work Phone: 3(011)370-490359 [address] 10-29-2022 14:07-0400 Body mass index (BMI) [Ratio] 29.6 kg/m2 Dr. Antony Escobar Work Phone: 9(456)324-168823 [place] [address] 10-29-2022 14:07-0400 Body weight 73.[address] Antony Escobar Work Phone: 2(381)986-698523 [place] [address] 04-25-2023 14:07-0400 Diastolic blood pressure 72 mm[Hg] Dr. Antony Escobar Work Phone: [facility] 10-29-2022 14:07-0400 Systolic blood pressure 111 mm[Hg] Dr. Antony Escobar Work Phone: [facility] 09-06-2022 08:06-0500 Blood Pressure Location HOWARD SUPPAN DPM [facility] 09-06-2022 08:06-0500 Body height 157.5 cm HOWARD SUPPAN DPM [facility] 09-06-2022 08:06-0500 Body weight 68.2 kg HOWARD SUPPAN DPM [facility] 09-06-2022 08:06-0500 Body weight 27.49 kg/m2 HOWARD SUPPAN DPM [facility] 09-06-2022 08:06-0500 Diastolic Blood Pressure Non-Invasive 76 1 HOWARD SUPPAN DPM [facility] 09-06-2022 08:06-0500 Heart rate 73 /min HOWARD SUPPAN DPM [facility] 09-06-2022 08:06-0500 Respiratory rate 20 /min HOWARD SUPPAN DPM [facility] 09-06-2022 08:06-0500 Systolic Blood Pressure Non-Invasive 98 1 HOWARD SUPPAN DPM [facility] 07-11-2022 15:11-0500 Body mass index (BMI) [Ratio] 28.9 kg/m2 Dr. Antony Escobar Work Phone: [facility] 07-11-2022 15:11-0500 Body temperature 95.8 [degF] Dr. Antony Escobar Work Phone: [facility] 07-11-2022 15:11-0500 Body weight 71.[address] Antony Escobar Work Phone: [facility] 07-11-2022 15:11-0500 Diastolic blood pressure 73 mm[Hg] Dr. Antony Escobar Work Phone: [facility] 07-11-2022 15:11-0500 Heart rate 65 /min Dr. Antony Escobar Work Phone: [facility] 07-11-2022 15:11-0500 Respiratory rate 18 /min Dr. Antony Escobar Work Phone: [facility] 07-11-2022 15:11-0500 SaO2% (BldA) [Mass fraction] 97 % Dr. Antony Escobar Work Phone: [facility] 07-11-2022 15:11-0500 Systolic blood pressure 106 mm[Hg] Dr. Antony Escobar Work Phone: [facility] Encounters Encounter Date Encounter Type Care Provider Facility Start: 05-26-2025 ambulatory Beatriz Pro lity:[facility] Start: 05-16-2025 End: 05-16-2025 ambulatory Beatriz Escobar Facility:[facility] Start: 05-09-2025 ambulatory Carmelita Westty:[facility] Start: 05-02-2025 ambulatory Beatriz Benton lity:[facility] Start: 04-28-2025 End: 04-28-2025 ambulatory Beatriz Escobar Facility:[facility] Start: 04-26-2025 End: 04-26-2025 ambulatory Manda Greenfield Facility:[facility] Start: 04-18-2025 End: 04-18-[address] Beatriz Escobar MD Work Phone: [facility] Start: 04-18-2025 End: 04-18-[address] Carmelita Weeks DO [facility] Work Phone: Start: 04-18-2025 End: 04-18-2025 ambulatory Carmelita Weeks Facility:[facility] Start: 04-03-2025 ambulatory Beatriz Benton lity:[facility] Start: 04-03-2025 Non-patient / Non-visit Dr. William knight MD -[facility] Work Phone: Start: 04-02-2025 End: 04-02-[address] Beatriz Escobar MD Work Phone: -[facility] Start: 04-02-2025 End: 04-02-[address] William Ceballos MD -[facility] Work Phone: Start: 03-22-2025 End: 03-22-2025 Patient encounter procedure Manda GAYTAN -[facility] Work Phone: Start: 03-22-2025 End: 03-22-[address] Beatriz Escobar MD Work Phone: -[facility] Start: 03-01-2025 End: 03-01-2025 ambulatory CALEDONIAPAMELA Dae [facility] Start: 02-21-2025 End: 02-21-2025 Patient encounter procedure Lyssa Aguila CNM -[facility] Work Phone: Start: 02-21-2025 End: 02-21-[address] Beatriz Escobar MD Work Phone: -[facility] Start: 02-21-2025 End: 02-21-2025 ambulatory Beatriz Escobar Facility:[facility] Start: 02-08-2025 End: 02-08-2025 ambulatory MANDA AGUIRRE [facility] Start: 01-25-2025 End: 01-25-[address] Gaby Trimble MD -[facility] Work Phone: Start: 01-25-2025 End: 01-25-[address] Beatriz Escobar MD Work Phone: -[facility] Start: 01-17-2025 End: 01-17-[address] Beatriz Escobar MD Work Phone: -[facility] Start: 01-17-2025 End: 01-17-[address] Denis Galdamez MD -[facility] Start: 01-17-2025 End: 01-17-2025 ambulatory Denis Galdamez Facility:[facility] Start: 01-10-2025 End: 01-10-2025 Patient encounter procedure Manda Aguirre NP-C -[facility] Work Phone: Start: 01-10-2025 End: 01-10-[address] Beatriz Escobar MD Work Phone: -[facility] Start: 12-30-2024 End: 12-30-[address] Denis Galdamez MD -[facility] Work Phone: Start: 12-30-2024 End: 12-30-[address] Beatriz Escobar MD Work Phone: [facility] Work Phone: Start: 12-27-2024 End: 12-27-2024 Patient encounter procedure Manda Aguirre NP-C -[facility] Work Phone: Start: 12-27-2024 End: 12-27-[address] Beatriz Escobar MD Work Phone: [facility] Work Phone: Start: 12-27-2024 End: 12-27-2024 ambulatory Beatriz Escobar Facility:[facility] Start: 11-24-2024 End: 11-24-[address] Beatriz Escobar MD Work Phone: [facility] Work Phone: Start: 11-24-2024 End: 11-24-2024 Patient encounter procedure Lyssa Aguila CNM -[facility] Work Phone: Start: 11-24-2024 End: 11-24-2024 Patient encounter procedure Lyssa Aguila CNM -[facility] Work Phone: Start: 11-24-2024 End: 11-24-[address] Beatriz Ecsobar MD Work Phone: [facility] Work Phone: Start: 11-24-2024 End: 11-24-2024 ambulatory [facility] Facility:[facility] Start: 08-25-2024 End: 08-25-2024 Patient encounter procedure Lyssa Aguila CNM -[facility] Start: 08-25-2024 End: 08-25-2024 ambulatory [facility] Facility:[facility] Start: 08-23-2024 End: 08-23-2024 Patient encounter procedure Lyssa WARD -[facility] Work Phone: Start: 08-23-2024 End: 08-23-2024 ambulatory [facility] Facility:[facility] Start: 08-23-2024 End: 08-23-2024 Patient encounter procedure Lyssa Aguila CNM -[facility] Start: 08-23-2024 End: 08-23-2024 ambulatory Dexter Shawn Facility:[facility] Start: 03-11-2023 End: 03-11-2023 ambulatory [facility] Work Phone: Start: 03-11-2023 End: 03-11-2023 Patient encounter procedure [facility] Start: 10-29-2022 End: 10-29-[address] Antony Escobar Work Phone: [facility] Work Phone: Start: 10-29-2022 End: 10-29-[address] Antony Escobar Work Phone: [facility]atory, Spec[facility] Start: 10-29-2022 End: 10-29-[address] Antony Escobar Work Phone: [facility] Start: 09-19-2022 End: 09-19-2022 ambulatory HOWARD N ALAINA DPM Facility:[facility] Start: 09-06-2022 End: 09-07-2022 ambulatory HOWARD N SUPPRADHA DPM Facility:[facility] Start: 09-06-2022 End: 09-06-[address] [facility] [place] [place] HOWARD Sears KAITRADHA DPM [facility] Start: 07-11-2022 End: 07-11-[address] Antony Escobar Work Phone: [facility] Start: 03-15-2022 End: 03-15-2022 ambulatory [facility] Work Phone: Start: 03-15-2022 End: 03-15-2022 Patient encounter procedure [facility], [facility] Start: 03-14-2022 End: 03-14-2022 ambulatory [facility] Work Phone: Start: 03-14-2022 End: 03-14-2022 Patient encounter procedure [facility], [facility] Procedures Date Procedure Procedure Detail Performing [...] HCV Quant by PCR testing - HCVPCR #[id number] Non Reactive: < 0.8 Equivocal: >/= 0.8 [...] Date Care Activity Detail Author Start: 04-28-2025 [facility] Start: 04-28-2025 End: 04-28-2025 Patient encounter procedure Advanced maternal age (AMA) in -[place] [facility] Work Phone: Start: 04-26-2025 Patient encounter procedure Registered Clinical -Laboratory Work Phone: Start: 04-02-2025 Nonstress test [facility] Start: 04-02-2025 Obstetric monitoring [facility] Start: 04-02-2025 Vital signs measurements [facility] Start: 04-02-2025 [facility] Start: 04-02-2025 Patient discharge [facility] Start: 03-22-2025 Measurement of glucose 2 hours after glucose challenge for glucose tolerance test [facility] Start: 03-22-2025 Serologic test for syphilis [facility] Start: 03-22-2025 [facility] Start: 02-21-2025 CBC W Auto Differential panel - Blood [facility] Start: 01-10-2025 [facility] Start: 12-27-2024 CBC W Auto Differential panel - Blood [facility] Start: 12-27-2024 Comprehensive metabolic 1999 panel - Serum or Plasma [facility] Start: 12-27-2024 Hemoglobin A1c/Hemoglobin.total in Blood [facility] Start: 12-27-2024 Hepatitis C antibody measurement [facility] Start: 12-27-2024 Rubella IgG measurement [facility] Start: 12-27-2024 Serologic test for syphilis [facility] Start: 12-27-2024 Thyroid stimulating hormone measurement [facility] Start: 12-27-2024 [facility] Start: 12-27-2024 Procedure [facility] Start: 10-29-2022 Liquid based cervical cytology screening [facility] Alanine aminotransfe rase [Enzymatic activity/volume] in Serum or Plasma [facility] Albumin [Mass/volume ] in Serum or Plasma [facility] Alkaline phosphatase [Enzymatic activity/volume] in Serum or Plasma [facility] Anion gap in Serum or Plasma [facility] Bilirubin, total measurement [facility] BUN/Creatinine ratio [facility] Calcium [Mass/volume ] in Serum or Plasma [facility] Carbon dioxide, tota l [Moles/volume] in Central venous blood [facility] CBC W Auto Different ial panel - Blood [facility] CBC W Auto Different ial panel - Blood [facility] Chlamydia deoxyribon ucleic acid detection [facility] Comprehensive metabo lic 1999 panel - Serum or Plasma [facility] Creatinine [Mass/vol ume] in Serum or Plasma [facility] Erythrocyte mean cor puscular volume determination [facility] Erythrocyte mean cor puscular volume determination [facility] Glucose [Mass/volume ] in Serum or Plasma [facility] Hematocrit [Volume F raction] of Blood [facility] Hematocrit [Volume F raction] of Blood [facility] Hemoglobin [Mass/vol ume] in Blood [facility] Hemoglobin [Mass/vol ume] in Blood [facility] Hemoglobin A1c/Hemoglobin.total in Blood [facility] Hepatitis B virus elmore rface Ag [Presence] in Serum [facility] Hepatitis C antibody measurement [facility] Leukocytes [#/volume ] in Blood [facility] Leukocytes [#/volume ] in Blood [facility] Mean corpuscular hem oglobin concentration determination [facility] Mean corpuscular hem oglobin concentration determination [facility] Mean corpuscular hem oglobin determination [facility] Mean corpuscular hem oglobin determination [facility] Measurement of renal function [facility] Neutrophil count [facility] Neutrophil count [facility] Neutrophil percent differential count [facility] Neutrophil percent differential count [facility] Path report.final Dx Spec [facility] Patient Education Kick Counts ED False Labor OB Triage: Return to Hospital or Notify Physician if you Experience: [facility] Work Phone: Platelets [#/volume] in Blood [facility] Platelets [#/volume] in Blood [facility] Potassium measurement [facility] Protein/Creatinine [ Ratio] in Urine [facility] Red blood cell count [facility] Red blood cell count [facility] Red cell distributio n width determination [facility] Red cell distributio n width determination [facility] Rubella IgG measurement [facility] Serologic test for syphilis [facility] Serum chloride measurement [facility] Sodium measurement [facility] T4 free measurement [facility] T4 free measurement [facility] T4 free measurement [facility] Thyroid stimulating hormone measurement [facility] Thyroid stimulating hormone measurement [facility] Thyroid stimulating hormone measurement [facility] Thyroid stimulating hormone measurement [facility] Thyroperoxidase Ab [Units/volume] in Serum or Plasma [facility] Total protein measurement [facility] Triiodothyronine, fr ee measurement [facility] Triiodothyronine, fr ee measurement [facility] Triiodothyronine, fr ee measurement [facility] Urea nitrogen [Mass/ volume] in Serum or Plasma [facility] Payers Date Payer Category Payer Self-pay [id number] 2024 Unknown [id number] 2022 [id number] 1990 Unknown [id number] 1990 Unknown [id number] 1990 Unknown [id number] [id number]9 1990 Unknown [id number] 2.16.840.1.984324.3.579.2.479 Unknown [facility] [id number] Unknown [id number] 2.16.840.1.505734.3.579.2.462 Unknown [id number] 2.840.1.979042.3.579.2.462 Unknown [id number] 2.16840.1.415521.3.579.2.462 Unknown [id number] 2.16840.1.930235.3.579.2.462 Unknown [id number] 2.16840.1.302610.3.579.2.462 Unknown [id number] 2.16.840.1.314787.3.579.2.462 Unknown [id number] 2.16840.1.686859.3.579.2.462 Unknown [id number] 2.16840.1.312098.3.579.2.462 Unknown [id number] 2.16840.1.635016.3.579.2.462 Unknown [id number] 2.16840.1.970097.3.579.2.462 Unknown [id number] 2.16.840.1.887837.3.579.2.462 Unknown [id number] 2.16.840.1.877561.3.579.2.462 Unknown [id number] 2.16.840.1.850591.3.579.2.462 Unknown [id number] 2.16.840.1.717617.3.579.2.462 Unknown [id number] 2.16.840.1.375974.3.579.2.462 Unknown [id number] 2.16.840.1.412976.3.579.2.462 Unknown [id number] 2.16.840.1.294064.3.579.2.462 Unknown [id number] 2.16.840.1.268871.3.579.2.462 Unknown [id number] 2.16.840.1.781292.3.579.2.462 Unknown [id number] 2.16.840.1.499971.3.579.2.462 Unknown [id number] 2.16.840.1.686544.3.579.2.462 Unknown [id number] 2.16.840.1.496802.3.579.2.462 Unknown [id number] 2.16.840.1.991717.3.579.2.462 Unknown [id number] 2.16.840.1.814776.3.579.2.462 Social History Date Type Detail Facility Start: 09-19-2021 End: 10-29-2022 Tobacco smoking status ILIS Unknown if ever smoked [facility] Start: 1990 Sex Assigned At Female [facility] Start: 09-06-2022 End: 11-12-2024 Tobacco smoking status Never smoked tobacco (finding) [facility] Sex Female [facility] Functional Status Date Assessment Result Facility 09-06-2022 Functional Status Sensory Deficits None [facility] Clinical Notes 09-11-2020 to 04-18-2025 Note Date & Type Note Facility 04-18-[address] [facility] 03-22-[address] [facility] 01-10-2025 Evaluation note Diagnosis Onset Date Resolution [...] chronic Octobe r 2024 10:40am [facility] Work Phone: 1(926) 783-390906-23-2025 Evaluation note* Diagnosis Onset Date Resolution Status [...] Trauma during acute S eptember 2024 6:20pm [facility] Work Phone: 1(698) 148-468605-21-2025 Evaluation note* Diagnosis Onset Date Resolution Status [...] Nodular goiter chronic December 27, 2024 9:40am [facility] Work Phone: 1(218) 799-973805-21-2025 Evaluation note* Diagnosis Onset Date Resolution Status [...] Hot thyroid nodule acute December 062024 1:26pm [facility] Work Phone: 1(596) 409-168905-21-2025 Evaluation note* Diagnosis Onset Date Resolution Status [...] chronic January 10, 2025 1:49pm [facility] Work Phone: 1(194) 188-256705-21-2025 Evaluation note* Diagnosis Onset Date Resolution Status [...] Thyroid nodule resolved January 25, 2025 1:51pm [facility] Work Phone: 1(198) 213-542905-21-2025 Evaluation note* Diagnosis Onset Date Resolution Status [...] chronic February 21, 2025 10:57am [facility] Work Phone: 1(214) 179-847605-21-2025 Evaluation note* Diagnosis Onset Date Resolution Status [...] 10:18am Hot thyroid nodule chronic 2024 10:18am [facility] Work Phone: 1(848) 809-921905-21-2025 Progress [facility] [address] [place] [address], [address] [place] [address] OFFICE VISIT Date of Service: 11/24/24 MR#: [id number] Acct: [id number] Name: DEMARCUS ABAD Rep #: [id number] : 1990 Provider: SULLY Aguila Age/Sex: 34/F [place] [facility] Status: Signed Intake Vital Signs 08/23/24 15:14 11/24/24 12:59 Height 5 ft 2 in 5 ft 2 in Weight: 166 lb 168 lb 8 oz BMI 30.3 30.8 BP 119/77 108/74 Intake Visit Reasons: NOB LMP 09/27 Chief Complaint: 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 Required: No Is patient in pain?: No Allergies Penicillins Allergy (Unknown, Verified 11/24/24 12:57) Unknown Medications ?Medication ?Instructions ?Recorded ?Confirmed ?Type ferrous sulfate 325 mg (65 mg 325 mg PO DAILY 09/05/23 11/24/24 History iron) tablet (Feosol) multivit-min no.71-iron fum 28 cap PO 11/12/24 5 History mg-folate no.1 1 mg-dha 300 mg capsule (PNV-Serafina) Last Menstrual Period: 09/27/24 : Yes PFSH PFSH Medical History Hx of varicose veins of lower extremity Depression Nodular goiter HPV (human papilloma virus) infection Thyroid disorder Pre-eclampsia Abnormal glucose Anemia Surgical History History of bunionectomy of right great toe [place] teeth extracted History of colposcopy Family History Mother Hypertension Father Diabetes Aunt Thyroid disorder Maternal- unknown type Social History adopted: No household members: spouse and children housing: house number of children: 2 service: No current occupational status: unemployed current occupation: [employer] pets and animals: Yes (no litter [...] activity do you participate in: none [place]/evangelical: Methodist seatbelt use: always do you feel safe [...] Shlomo 36 live - 6# Male epidural [facility] Taye 08/08/21 Emalie 36 live - 6lbs 14oz Female ep idural [facility] Edda Veljaime Delivery Date: 04/30/08 Last Updated by: Manda Aguirre MEDICAL ASSISTANT FLOAT, MEDICAL ASSISTANT FLOAT-C Induced to preeclampsia, teen Delivery Date: 08/08/21 [...] Thyroid dysfunction (Thyroid nodule), Drug/latex allergies/reactions (PCN), Double Bass Player surgery (Colposcopy), Operations/hospitalizations (wisdom teeth, bunionectomy-right), History [...] and Symptoms of Preeclampsia, Feeding Yes , [place] Education and Family Medical Leave or Disability [...] Signature: Date (if applicable) CC: ~ [facility]02-17-2025 Evaluation note* Diagnosis Onset Date Resolution Status [...] Nodular goiter chronic November 24, 2024 12:49pm [facility] Work Phone: 1([phone] 217-110104-26-2021 NoteHNO ID: [id number] Author: Brian Alcocer Service: ? Author Type: [...] suspect is musculoskeletal. Get (more content not included)...[facility]03-08-2021 NoteHNO ID: [id number] Author: Jacey Galdamez Service: ? Author Type: Nurse Practitioner Type: Progress Notes Filed: 09/11/2020 9:25 AM Note Text: Subjective Patient triaged in [facility] care. Patient presenting with intermittent dizziness, left chest pain, left arm numbness for months. Denies cardiac history. Discussed limitations of express care, I will refer to family medicine. Patient appears in on distress today. I advised if s/s become severe needs to [facility] note Future Appointments [facility] Evaluation noteNo assessment information available [facility] Work Phone: Evaluation note* Diagnosis Onset Date Resolution Status Nodular goiter acute Encounter for routine gynecological examination noneactive [facility] Work Phone: History and physical note [facility] Medical Records Department [address] [place] [address] OB Triage Physician Note 04/03/25 1535 MR#: [id number] Acct: [id number] Name: DEMARCUS ABAD Rep #:[id number] : 1990 35 From: William Ceballos MD PCP: Dr. Beatriz Escobar MD Status :DEP CLI Y Location: [facility] HPI - General HPI Narrative DEMARCUS ABAD, [...] 1 mg-dha 300 mg 1 cap capsule (PNV-Serafina) methimazole 5 mg tablet 2.5 mg (1/2 x 5 mg) PO .ever y 01/17/25 03/30/25 08:00 Rx other day #15 tabs 2.5 mg Allergy/AdvReac Type Severity Reaction Status Date / Time Penicillins Allergy Unknown Unknown Verified 04/02/25 18:30 Family History Mother Hypertension Father Diabetes Aunt Thyroid disorder Maternal- unknown type Surgical History History of bunionectomy of right great toe [place] teeth extracted History of colposcopy Social History adopted: No household members: spouse and children housing: house number of children: 2 current occupational status: unemployed current occupation: [employer] pets and animals: Yes (no litter [...] activity do you participate in: none mad[place]/evangelical: Methodist seatbelt use: always do you feel safe at home: Yes 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 Date Name GA/Weeks Outcome Route Bth Weight Infant Gen Labor Lgth Anesthesia Del Locatn Provider FOB Unknown 08/2024 6 spontaneous 04/30/08 Shlomo 36 live - 6# Male epidural [facility] Taye 08/08/21 Emalie 36 live - 6lbs 14oz Female ep idural [facility] [place] Delivery Date: 04/30/08 Last Updated by: Manda Aguirre MEDICAL ASSISTANT FLOAT, MEDICAL ASSISTANT FLOAT-C Induced to preeclampsia, teen Delivery Date: 08/08/21 [...] G ood FM. Discussed managing sciatic pain. [employer] NST FHR Rate Baby A NST Reactive:: [...] MD; Dr. William Ceballos MD ~ [facility] William akilah [facility] Note Date/Time April 03, 2025 3:40pm [facility] Medical Records Department [address] [place] [address] OB Triage Physician Note 04/03/25 1535 MR#: [id number] Acct: [id number] Name: DEMARCUS ABAD Rep #:[id number] : 1990 35 From: William Ceballos MD PCP: Dr. Beatriz Escobar MD Status :[facility] Y Location: [facility] HPI - General HPI Narrative DEMARCUS ABAD, [...] 1 mg-dha 300 mg 1 cap capsule (PNV-Serafina) methimazole 5 mg tablet 2.5 mg (1/2 x 5 mg) PO .ever y 01/17/25 03/30/25 08:00 Rx other day #15 tabs 2.5 mg Allergy/AdvReac Type Severity Reaction Status Date / Time Penicillins Allergy Unknown Unknown Verified 04/02/25 18:30 Family History Mother Hypertension Father Diabetes Aunt Thyroid disorder Maternal- unknown type Surgical History History of bunionectomy of right great toe [place] teeth extracted History of colposcopy Social History adopted: No household members: spouse and children housing: house number of children: 2 current occupational status: unemployed current occupation: [employer] pets and animals: Yes (no litter [...] activity do you participate in: none [place]/evangelical: Methodist seatbelt use: always do you feel safe [...] Shlomo 36 live - 6# Male epidural [facility] Taye 08/08/21 Emalie 36 live - 6lbs 14oz Female ep idural [facility] [place] Delivery Date: 04/30/08 Last Updated by: Manda Aguirre MEDICAL ASSISTANT FLOAT, MEDICAL ASSISTANT FLOAT-C Induced to preeclampsia, teen Delivery Date: 08/08/21 [...] MD; Dr. William Ceballos MD ~ Signed [facility] Work Phone: Hospital course Narrative No data available for this section [facility] Hospital Discharge instructions No data available for this section [facility] Progress note No data available for this section [facility] Progress note Author Lyssa Aguila [facility] Note Date/Time November 24, 2024 1:35p m [facility] [address], [address] [place] [address] OFFICE VISIT Date of Service: 11/24/24 MR#: [id number] Acct: [id number] Name: DEMARCUS ABAD Rep #: [id number] : 1990 Provider: SULLY Aguila Age/Sex: 34/F [place] [facility] Status: Signed Intake Vital Signs 08/23/24 15:14 11/24/24 12:59 Height 5 ft 2 in 5 ft 2 in Weight: 166 lb 168 lb 8 oz BMI 30.3 30.8 BP 119/77 108/74 Intake Visit Reasons: NOB LMP 09/27 Chief Complaint: 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 Required: No Is patient in pain?: No Allergies Penicillins Allergy (Unknown, Verified 11/24/24 12:57) Unknown Medications ?Medication ?Instructions ?Recorded ?Confirmed ?Type ferrous sulfate 325 mg (65 mg 325 mg PO DAILY 09/05/23 11/24/24 History iron) tablet (Feosol) multivit-min no.71-iron fum 28 cap PO 11/12/24 5 History mg-folate no.1 1 mg-dha 300 mg capsule (PNV-Serafina) Last Menstrual Period: 09/27/24 : Yes PFSH PFSH Medical History Hx of varicose veins of lower extremity Depression Nodular goiter HPV (human papilloma virus) infection Thyroid disorder Pre-eclampsia Abnormal glucose Anemia Surgical History History of bunionectomy of right great toe [place] teeth extracted History of colposcopy Family History Mother Hypertension Father Diabetes Aunt Thyroid disorder Maternal- unknown type Social History adopted: No household members: spouse and children housing: house number of children: 2 service: No current occupational status: unemployed current occupation: [employer] pets and animals: Yes (no litter [...] activity do you participate in: none [place]/evangelical: Methodist seatbelt use: always do you feel safe [...] Shlomo 36 live - 6# Male epidural [facility] Taye 08/08/21 Emalie 36 live - 6lbs 14oz Female ep idural [facility] [place] Delivery Date: 04/30/08 Last Updated by: Manda Aguirre MEDICAL ASSISTANT FLOAT, MEDICAL ASSISTANT FLOAT-C Induced to preeclampsia, teen Delivery Date: 08/08/21 [...] Thyroid dysfunction (Thyroid nodule), Drug/latex allergies/reactions (PCN), Double Bass Player surgery (Colposcopy), Operations/hospitalizations (wisdom teeth, bunionectomy-right), History [...] Symptoms of Preeclampsia, Infant Feeding Yes , [place] Education and Family Medical Leave or Disability [...] (13) History of colposcopy: Status: Acute Comment: [facility] pap 04/2020 pos HPV, neg pap. Neg colp wo bx per RR at [facility] 05/2020 Orders: Orders CBC W/Diff, Automated [...] to patient and patient chose: NIPT 11/24/24 0524 <Electronically signed by Lyssa preston CNM> Date _ Lyssa Aguila CNM Cosigner Signature: Date (if applicable) CC: ~ [facility] Work Phone: Progress note Author Manda Aguirre [facility] Note Date/Time March 22, 2025 10:55am [facility] [address], [address] [place] [address] OFFICE VISIT Date of Service: 03/22/25 MR#: [id number] Acct: [id number] Name: DEMARCUS ABAD Rep #: [id number] : 1990 Provider: LUCILA Aguirre Age/Sex: 35/F [place] [facility] Status: Signed Intake Vital Signs 01/25/25 13:59 02/21/25 11:01 03/22/25 10:32 03/22/25 10:36 Height 5 ft 2 in 5 ft 2 in 5 ft 2 in 5 ft 2 in Weight: 178 lb 1 oz BMI 32.5 BP 111/75 Intake Visit Reasons: 24wk ob Chief Complaint: 24 Week OB Ben Day Artist Required: No Is patient in pain?: No Allergies Penicillins Allergy (Unknown, Verified 03/22/25 10:35) Unknown Medications ?Medication ?Instructions ?Recorded ?Confirmed ?Type ferrous sulfate 325 mg (65 mg 325 mg PO DAILY 09/05/23 03/22/25 History iron) tablet (Feosol) multivit-min no.71-iron fum 28 cap PO 11/12/24 5 History mg-folate no.1 1 mg-dha 300 mg capsule (PNV-Serafina) methimazole 5 mg tablet 2.5 mg (1/2 [...] History of bunionectomy of right great toe [place] teeth extracted History of colposcopy Family History Mother Hypertension Father Diabetes Aunt Thyroid disorder Maternal- unknown type Social History adopted: No household members: spouse and children housing: house number of children: 2 current occupational status: unemployed current occupation: [employer] pets and animals: Yes (no litter [...] activity do you participate in: none [place]/evangelical: Methodist seatbelt use: always do you feel safe at home: Yes 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 Date Name GA/Weeks Outcome Route Bth Weight Gen Labor Lgth Anesthesia Del Locatn Provider FOB Unknown 08/2024 6 spontaneous 04/30/08 Shlomo 36 live - 6# Male epidural [facility] Taye 08/08/21 Emalie 36 live - 6lbs 14oz Female ep idural [facility] [place] Delivery Date: 04/30/08 Last Updated by: Manda Aguirre MEDICAL ASSISTANT FLOAT, MEDICAL ASSISTANT FLOAT-C Induced to preeclampsia, teen Delivery Date: 08/08/21 [...] Symptoms of Preeclampsia, Infant Feeding No , [place] Education and Family Medical Leave or Disability [...] 1056 <Electronically signed by Manda Hasting s MEDICAL ASSISTANT FLOAT MEDICAL ASSISTANT FLOAT-C> Date _ Mandamal Thomass MEDICAL ASSISTANT FLOAT MEDICAL ASSISTANT FLOAT-C Cosigner Signature: Date (if applicable) CC: ~ [facility] Work Phone: Progress note Author Carmelita Cary [facility] Note Date/Time April 18, 2025 1 1:47am [facility] [address] [place] [address], [address] [place] [address] OFFICE VISIT Date of Service: 04/18/25 MR#: [id number] Acct: [id number] Name: DEMARCUS ABAD Rep #: [id number] : 1990 Provider: Dr. Sandra Weeks DO Age/Sex: 35/F Location[facility] Status: Signed Intake Vital Signs 01/25/25 13:59 04/02/25 18:35 04/18/25 10:56 04/18/25 10:59 Height 5 ft 2 in 5 ft 2 in 5 ft 2 in 5 ft 2 in Weight: 183 lb 9 oz BMI 33.5 BP 106/71 Intake Visit Reasons: 28wk ob/glucose Ben Day Artist Required: No Is patient in pain?: No Allergies Penicillins Allergy (Unknown, Verified 04/18/25 10:56) Unknown Medications ?Medication ?Instructions ?Recorded ?Confirmed ?Type multivit-min no.71-iron fum 28 1 cap PO DAILY 11/12/24 04/18/25 History mg-folate no.1 1 mg-dha 300 mg capsule (PNV-Serafina) methimazole 5 mg tablet 2.5 mg (1/2 [...] History of bunionectomy of right great toe [place] teeth extracted History of colposcopy Family History Mother Hypertension Father Diabetes Aunt Thyroid disorder Maternal- unknown type Social History adopted: No household members: spouse and children housing: house number of children: 2 current occupational status: unemployed current occupation: [employer] pets and animals: Yes (no litter [...] activity do you participate in: none [place]/evangelical: Methodist seatbelt use: always do you feel safe at home: Yes 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 Date Name GA/Weeks Outcome Route Bth Weight Infant Gen Labor Lgth Anesthesia Del Locatn Provider FOB Unknown 08/2024 6 spontaneous 04/30/08 Shlomo 36 live - 6# Male epidural [facility] Taye 08/08/21 Emalie 36 live - 6lbs 14oz Female ep idural [facility] [place] Delivery Date: 04/30/08 Last Updated by: Manda Aguirre MEDICAL ASSISTANT FLOAT, MEDICAL ASSISTANT FLOAT-C Induced to preeclampsia, teen Delivery Date: 08/08/21 [...] Date (if applicable) CC: ~ [facility] Work Phone: Reason for referral (narrative)No reason for referral 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) Reason for Visit Nodular goiter Encounter for [...] section and content) DATE CREATED AUTHOR 08/26/2021 [facility] DATE CREATED AUTHOR AUTHOR'S ORGANIZ ATION 09/23/2022 [facility] ([place]) DATE CREATED AUTHOR AUTHOR'S ORGANIZ ATION 03/03/2025 [facility] DATE CREATED AUTHOR AUTHOR'S ORGANIZ ATION 05/18/2025 [facility] Goals (unrecognized section and content) Type Care [...] Role: Primary Care Physician Address: Address: [address] [place] [address]- Care Team Related Persons Name: MEDARDO ABAD Address: Home [address] [place] [address] Care Teams (unrecognized sec tion and content) [...] December 27, 2024 Manda Aguirre MEDICAL ASSISTANT FLOAT, MEDICAL ASSISTANT FLOAT-C Attending Provider Active Start: December 27, 2024 End: December 27, 2024 Team Status: Active Member Role Status Dates Dr. Beatriz Escobar MD Primary Care Provider Acti ve Start: December 27, 2024 Manda Aguirre MEDICAL ASSISTANT FLOAT, MEDICAL ASSISTANT FLOAT-C Attending Provider Active Start: December 27, 2024 Manda Aguirre MEDICAL ASSISTANT FLOAT, MEDICAL ASSISTANT FLOAT-C Referring Provider Active Start: December 27, 2024 [...] December 27, 2024 Manda Aguirre MEDICAL ASSISTANT FLOAT, MEDICAL ASSISTANT FLOAT-C Attending Provider Active Start: December 27, 2024 End: December 27, 2024 Team Status: Inactive Member Role/Relationship Status Dates Dr. Beatriz Escobar MD Primary Care Provider Acti ve Start: December 27, 2024 End: December 27, 2024 Manda Aguirre MEDICAL ASSISTANT FLOAT, MEDICAL ASSISTANT FLOAT-C Attending Provider Active Start: December 27, 2024 End: December 27, 2024 Manda Aguirre MEDICAL ASSISTANT FLOAT, MEDICAL ASSISTANT FLOAT-C Referring Provider Active Start: December 27, 2024 [...] 10, 2025 Manda Aguirre NP, MEDICAL ASSISTANT FLOAT-C Attending Provider Active Start: January 10, 2025 [...] March 22, 2025 Manda Aguirre MEDICAL ASSISTANT FLOAT, MEDICAL ASSISTANT FLOAT-C Attending Provider Active Start: March 22, 2025 [...] December 27, 2024 Manda Aguirre MEDICAL ASSISTANT FLOAT, MEDICAL ASSISTANT FLOAT-C Attending physician Active Start: December 27, 2024 End: December 27, 2024 Team Status: Inactive Member Role/Relationship Status Dates Dr. Beatriz Escobar MD Primary care physician Act rhys Start: December 27, 2024 End: December 27, 2024 Manda Aguirre MEDICAL ASSISTANT FLOAT, MEDICAL ASSISTANT FLOAT-C Attending physician Active Start: December 27, 2024 End: December 27, 2024 Manda Aguirre MEDICAL ASSISTANT FLOAT, MEDICAL ASSISTANT FLOAT-C Referring Provider Active Start: December 27, 2024 [...] January 10, 2025 Manda Aguirre MEDICAL ASSISTANT FLOAT, MEDICAL ASSISTANT FLOAT-C Attending physician Active Start: January 10, 2025 [...] March 22, 2025 Manda Aguirre MEDICAL ASSISTANT FLOAT, MEDICAL ASSISTANT FLOAT-C Attending physician Active Start: March 22, 2025 [...] January 10, 2025 Manda Aguirre MEDICAL ASSISTANT FLOAT, MEDICAL ASSISTANT FLOAT-C Attending physician Active Start: January 10, 2025 [...] March 22, 2025 Manda Aguirre MEDICAL ASSISTANT FLOAT, MEDICAL ASSISTANT FLOAT-C Attending physician Active Start: March 22, 2025 [...] April 26, 2025 Manda Aguirre MEDICAL ASSISTANT FLOAT, MEDICAL ASSISTANT FLOAT-C Attending physician Active Start: April 26, 2025 Manda Aguirre MEDICAL ASSISTANT FLOAT, MEDICAL ASSISTANT FLOAT-C Referring Provider Active Start: April 26, 2025 [...] BE BASED ON THE PRIMARY CLINICAL RECORDS. [facility]. provides no warranty or guarantee of the accuracy or completeness of information in this document.
[2025-06-26 21:58] VITALS: RESP 18; TEMP 37.1
[2025-06-26 22:01] VITALS: BMI 38.0
[2025-06-26 22:25] VITALS: BP 142/90; PULSE 63
[2025-06-26 22:56] VITALS: BP 161/90; PULSE 66
[2025-06-26 22:56] LABS: ROM Internal Control Test YES-OK TO RESULT pt. (Internal QC); ROM Patient Test Negative (Negative); Record Kit Lot#, ROM+ K3607
[2025-06-26 23:12] VITALS: BP 156/86; PULSE 64
[2025-06-27] VITALS (60 sets, daily range): BP systolic 127–151; BP diastolic 55–91; PULSE 66–114; RESP 16–18; TEMP 36.3–37; O2SAT 83–100
[2025-06-27 00:11] LABS: Hematocrit 43.1 % (37-47); Hemoglobin 14.7 g/dL (12.0-15.0); Mean Corp Hgb Conc 34.1 g/dL (32-36); Mean Corpuscular Volume 89.6 fL (81-99); Mean Platelet Vol. 11.8 fl (6.2-12.0); Platelet Count 232 K/mm3 (150-450); RBC Distribution Width CV 13.1 % (11.6-14.6); RBC Distribution Width SD 42.6 fl (35.1-43.9); Red Blood Count 4.81 M/mm3 (4.2-5.4); White Blood Count 11.2 K/mm3 (4.4-11.0)
[2025-06-27 00:13] LABS: Uric Acid 7.0 mg/dL (2.6-6.0)
[2025-06-27 00:21] LABS: AST(SGOT) 31 U/L (<=31); Alanine Aminotransfer ALT/SGPT 16 U/L (<=34); Estimated Creatinine Clearance 127.34 ml/min (50-250)
[2025-06-27 01:21] LABS: Creatinine, Urine (random) 35.70 mg/dL (28.00-217.00); Protein, Urine (Random) 34.3 mg/dL (0.0-12.0); Protein:Creat Ratio 961 mg/g CRE (0-200)
--- OUTSIDE RECORDS SUMMARY | 2025-06-27 01:52 | XMS RPT_ITS | CCD ---
Author Organization [facility] Care Team Providers Care Gill Box Tender Name Role Phone SHAWN JOHNSON, DR HENDERSON [...] AGUIRRE Referring Unavailable Shawn JOHNSON, Dr. Henderson [facility] Physicia n Shawn JOHNSON, Dr. Henderson Referring Provider Carla MACHINE LEARNING INTERN-CManda Attending Physician [phone] King ALEX, Dr. Barrios Attending Physician Atilio JOHNSON, Dr. Griffin Attending Physician Mingo VIRK, Lyssa Attending Physician [phone] Lyssa Aguila CNM Referring Provider [phone] Tucker JOHNSON, Dr. Thomas Attending Physician Unavailkavitha Ceballos MD, Dr. Thomas Referring Provider Unavailab jeramie Ceballos MD, Dr. Thomas Nurse Practitioner Unavailab jeramie Escobar MD, Dr. Henderson [facility] Physicia n Shawn JOHNSON, Dr. Henderson Referring Provider Carla MACHINE LEARNING INTERN-CManda Attending Physician [phone] King ALEX, Dr. Barrios Attending Physician Dr. Carmelita Weeks DO Attending Physician Carla MACHINE LEARNING INTERN-CManda Referring Provider [phone] Beatriz Escobar Primary Care [...] Unavailabl e Carmelita Weeks Attending Unavailabl e [place], [place] Primary Care Unavailable [facility] Primary Care Unavailable Vande Velde, Carmelita Attending Unavailabl e Vande Velde, Carmelita Referring Unavailabl e Vande Velde, Carmelita Attending Unavailabl e [place], [place] Primary Care Unavailable [facility], [place] Primary Care [facility] [place] Referring Unavailable Vande Raeann, Carmelita Attending Unavailabl e [place], [place] Primary Care Unavailable William Ceballos Referring Unavailable William Ceballos Attending Unavailable William Ceballos Consulting Unavailable [place], [facility] Referring Unavailable Lyssa Aguila Attending Unavailable [facility] Primary Care Unavailable [facility], [place] Primary Care Unavailable [place], [place] Referring Unavailable CarlaManda montenegro Attending Unavailable [facility] Primary Care Unavailable [facility], [place] Referring Unavailable Denis Galdamez Attending Unavailable Manda Aguirre Attending Unavailable [facility], [place] Primary Care Unavailable [facility], [place] Referring Unavailable [facility], [place] Primary Care Unavailable [facility], [place] Referring Unavailable Gaby Trimble Attending Unavailable Vande Velde, Carmelita Attending Unavailabl e [place], [place] Primary Care Unavailable [facility], [facility] Referring Unavailable [facility], [place] Primary Care Unavailable Lyssa Aguila Referring Unavailable Lyssa Aguila Attending Unavailable [facility] Primary Care Unavailable Lyssa Aguila Referring Unavailable Lyssa Aguila Attending Unavailable [place] Referring Unavailable Manda Aguirre Attending Unavailable [facility], [place] Primary Care Unavailable [place], [place] Primary Care Unavailable Manda Aguirre Referring Unavailable Manda Aguirre Attending Unavailable Denis Galdamez Attending Unavailable [facility] Primary Care Unavailable Denis Galdamez Referring Unavailable [facility] Primary Care Unavailable William Ceballos Referring Unavailable William Ceballos Attending Unavailable [facility] Primary Care Unavailable [facility], [place] Referring Unavailable Lyssa Aguila Attending Unavailable Allergies Allergy Classification Reported Allergen(s) Allergy Type Date of Onset Reaction(s) Facility (17 sources) Penicillins Allergy to substance 09-19-2021 Unknown [facility] Comment on above: as a (1 source) Penicillin; Translations: [penicillins] Drug Allergy [facility] (1 source) Penicillins Drug allergy (disorder) 05-16-2025 [facility] Repository Medications Current Medications Medication Drug Class(es) [...] Ordered Start: 05-10-2022 take 1 tablet by [facility] once daily Multivitamin Active 1 TABLET PO DAILY May 10, 2022 12:00am Mv-Mins 43-Fzlp-Ordrb No.1-D garvey (Pnv-Cathay) 28-1-300 mg capsule (13 sources) Start: 11-12-2024 Mv-Mins 71-Iro n-Folic No.1-Dha (Pnv-Cathay) 28-1-300 mg capsule Active 1 NMA PO DAILY November 12, 2024 12:00am Complies with drug therapy Start: 11-12-2024 Mv-Mins 71-Iro n-Folic No.1-Dha (Pnv-Cathay) 28-1-300 mg capsule Active NMA PO November 12, 2024 12:00am Lyerly (Nk) (2 sources) Start: 09-19-2021 Lyerly (Nk) A ctive September 19, 2021 12:00am [...] 1 tablet by mouth once daily Prenat.Vits,Marcel,Mi u-Vsbx-Hchss Discontinued 1 TABLET PO DAILY January 11, 2021 12:00am August 16, 2021 2:41pm Prenat.Vits,Marcel,Min -Iron-Folic tablet (13 sources) Start: 01-11-2021 End: 08-16-2021 Prenat.Vits,Marcel,Mi n-Qrbr-Kmaiv tablet Discontinued 1 {tbl} PO DAILY January 11, 2021 12:00am August 16, 2021 2:41pm Start: 01-11-2021 End: 08-16-2021 Prenat.Vits,Marcel,Mks-Hssp-Ohc ic tablet Discontinued 1 {tbl} PO DAILY [...] (HPV)] 01-11-2021 Episodic Comment on above: 04/2020 [facility], record scanned Residual codes; unclassified (20 sources) Past history of procedure; Translations: [Other specified postprocedural states] 01-11-2021 Episodic Comment on above: [facility] pap 04/2020 pos HPV, neg pap. Neg colp wo bx per RR at [facility] 05/2020 Residual codes; [...] Test Name Value Interpretation Reference Range Facility [employer] Office Visit Reporton 05-16-2025 [employer] Office Visit Report [facility]'s [address], [address] [place] [address] OFFICE VISIT Date of Service: 05/16/25 MR#: [id number] Acct: [id number] Name: DEMARCUS ABAD Rep #: [id number] : 1990 Provider: Dr. Carmelita Rossi DO Age/Sex: 35/F Location: [facility] [place] Status: Signed Intake Vital Signs 03/22/25 10:36 04/28/25 10:42 05/16/25 10:09 Height 5 ft 2 in 5 ft 2 in 5 ft 2 in Weight: 190 lb 4 oz BMI 34.7 BP 119/80 Intake Visit Reasons: 32 WK OB Title Specialist Required: No Is patient in pain?: No Allergies Penicillins Allergy (Unknown, Verified 05/16/25 10:10) Unknown Medications ???Medication ???Instructions ???Recorded ???Confirmed ???Type multivit-min no.71-iron fum 28 1 cap PO DAILY 11/12/24 05/16/25 H istory mg-folate no.1 1 mg-dha 300 mg capsule (PNV-Cathay) methimazole 5 mg tablet 2.5 mg (1/2 [...] History of bunionectomy of right great toe Mertens teeth extracted History of colposcopy Family History Mother Hypertension Father Diabetes Aunt Thyroid disorder Maternal- unknown type Social History adopted: No household members: spouse and children housing: house number of children: 2 current occupational status: unemployed current occupation: [employer] pets and animals: Yes (no litter [...] physical activity do you participate in: none [place]/advent: Advent seatbelt use: always do you feel safe at home: Yes 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 Date Name GA/Weeks Outcome Route Bth Weight Gen Labor Lgth Anesthesia Del Locatn Provider FOB Unknown 08/2024 6 spontaneous 04/30/08 Shlomo 36 live - 6# Male epidural [facility] Taye 08/08/21 Emalie 36 live - 6lbs 14oz Female epidural [facility] Va nde Velde Delivery Date: 04/30/08 Last Updated by: Manda Aguirre MACHINE LEARNING INTERN, MACHINE LEARNING INTERN-C Induced to preeclampsia, teen Delivery Date: 08/08/21 [...] 115/73 Negative (more content not included)... Normal [facility] Gestational GTT 3HR 100gon 1 07-09-2024 GEST GTT 100gm Normal [facility] Comment on above: Order Comment: Y Result [...] By: #### L 501.0900, M100.2200, L7000.1800 #### [facility] Laboratory [address] [place], [address] Laboratory - Chemistry and C hemistry - challengeOrdered By: Carmelita Cary on 04-28-2025 Glucose Ql (U) Negative [facility] Laboratory - UrinalysisOrder ed By: Carmelita Cary on 04-28-2025 Protein Ql (U) Negative [facility] [employer] Office Visit Reporton 04-28-2025 [employer] Office Visit Report [facility] [address], [address] [place] [address] OFFICE VISIT Date of Service: 04/28/25 MR#: [id number] Acct: [id number] Name: DEMARCUS ABAD Rep #: [id number] : 1990 Provider: Dr. Carmelita Rossi DO Age/Sex: 35/F [facility] Status: Signed Intake Vital Signs 04/18/25 10:59 04/28/25 10:42 04/28/25 10:42 Height 5 ft 2 in 5 ft 2 in 5 ft 2 in Weight: 187 lb BMI 34.2 BP 114/71 Intake Visit Reasons: Discuss 3hr glucose *do not shorten Title Specialist Required: No Is patient in pain?: No Allergies Penicillins Allergy (Unknown, Verified 04/28/25 10:41) Unknown Medications ???Medication ???Instructions ???Recorded ???Confirmed ???Type multivit-min no.71-iron fum 28 1 cap PO DAILY 11/12/24 04/28/25 H istory mg-folate no.1 1 mg-dha 300 mg capsule (PNV-Cathay) methimazole 5 mg tablet 2.5 mg (1/2 [...] History of bunionectomy of right great toe Mertens teeth extracted History of colposcopy Family History Mother Hypertension Father Diabetes Aunt Thyroid disorder Maternal- unknown type Social History adopted: No household members: spouse and children housing: house number of children: 2 current occupational status: unemployed current occupation: [employer] pets and animals: Yes (no litter [...] physical activity do you participate in: none [place]/advent: [employer] seatbelt use: always do you feel safe [...] Shlomo 36 live - 6# Male epidural [facility] Taye 08/08/21 Emalie 36 live - 6lbs 14oz Female epidural [facility] Va nde Velde Delivery Date: 04/30/08 Last Updated by: Manda Aguirre MACHINE LEARNING INTERN, MACHINE LEARNING INTERN-C Induced to preeclampsia, teen Delivery Date: 08/08/21 [...] -???-???-???-???-??? -???-? (more content not included)... Normal [facility] Gestational GTT 3HR 100gon 1 GEST GTT 100gm Normal [facility] Comment on above: Order Comment: Y Result Comment: FAST ING 89 Col: 04/26/25 1004 GLUCOSE TOLERANCE TEST FOR Reference Interval GESTATIONAL DIABETES Fasting <105 mg/dL 1 hour <190 mg/dl 2 hour <165 mg/dl 3 hour <145 mg/dl 1 HR GLU Col: 04/26/25 1102 2 HR GLU Col: 04/26/25 1202 3 HR GLU Col: 04/26/25 1302 Performed By: #### L 501.0900, M100.2200, L7000.1800 #### [facility] Laboratory [address] [place], [address] Quantitative serum or plasma 3 hour gestational glucose tolerance panelOrdered By: Manda Aguirre on 04-26-2025 Glucose tolerance 3 hours gestational panel See comment [facility] Comment on above: FASTING 89 Col: 04/07 07/31 1004GLUCOSE TOLERANCE TEST FOR Reference Interval GESTATIONAL DIABETES Fasting <105 mg/dL 1 hour <190 mg/dl 2 hour <165 mg/dl 3 hour <145 mg/dl Absolute lymphocyte countOrd ered By: Manda Aguirre on 04-18-2025 Lymphocytes Auto (Unsp spec) [#/Vol] 1.46 10*3/uL 0.83-4.51 [facility] Absolute neutrophil countOrd ered By: Manda Aguirre on 04-18-2025 Neutrophils (Bld) [#/Vol] 6.5 10*3/uL 2.0-7.7 [facility] Automated lymphocyte count a s percentage of total leukocytesOrdered By: Manda Aguirre on 04-18-2025 Lymphocytes/100 WBC Auto (Unsp spec) 16.9 % Low 19-41 [facility] Basophil percentageOrdered B y: Manda Aguirre on 04-18-2025 Basophils/100 WBC (Bld) 0.2 % 0-1 [facility] CBC W/Diff, Automatedon 04-06 Absolute Lymph 1.46 X10 3/uL Normal 0.83-4.51 [facility] Comment on above: Performed By: #### L 501.0900, M100.2200, L7000.1800 #### [facility] Laboratory [address] [place], [address] Absolute Neut 6.5 X10 3/uL Normal 2.0-7.7 [facility] Comment on above: Performed By: #### L 501.0900, M100.2200, L7000.1800 #### [facility] Laboratory [address] [facility] [place], [address] Basophils/100 WBC (Bld) 0.2 % Normal 0-1 [facility] Comment on above: Performed By: #### L 501.0900, M100.2200, L7000.1800 #### [facility] Laboratory [address] [place], [address] Eosinophils/100 WBC (Bld) 0.5 % Normal 0-5 [facility] Comment on above: Performed By: #### L 501.0900, M100.2200, L7000.1800 #### [facility] Laboratory [address] [place], [address] Erythrocyte distribution width (RBC) [Ratio] 12.5 % Normal 11.6-14.6 [facility] Comment on above: Performed By: #### L 501.0900, M100.2200, L7000.1800 #### [facility] Laboratory [address] [place], [address] Hematocrit (Bld) [Volume fraction] 36.6 % Low 37-47 [facility] Comment on above: Performed By: #### L 501.0900, M100.2200, L7000.1800 #### [facility] Laboratory [address] [place], [address] Hemoglobin (Bld) [Mass/Vol] 12.5 g/dL Normal 12.0-15.0 [facility] Comment on above: Performed By: #### L 501.0900, M100.2200, L7000.1800 #### [facility] Laboratory [address] [place], [address] IG% 0.700 Normal 0.0-0.9 [facility] Comment on above: Result Comment: IG% - Immature Granulocytes (promyelocytes, myelocytes and metamyelocytes) > 1% indicates that a LEFT SHIFT is Present. Performed By: #### L 501.0900, M100.2200, L7000.1800 #### [facility] Laboratory [address] [place], [address] Lymphocytes/100 WBC (Bld) 16.9 % Low 19-41 [facility] Comment on above: Performed By: #### L 501.0900, M100.2200, L7000.1800 #### [facility] Laboratory [address] [place], [address] MCH (RBC) [Entitic mass] 30.6 pg Normal 27.0-32.0 [facility] Comment on above: Performed By: #### L 501.0900, M100.2200, L7000.1800 #### [facility] Laboratory [address] [place], [address] MCHC (RBC) [Mass/Vol] 34.2 g/dL Normal 32-36 [facility] Comment on above: Performed By: #### L 501.0900, M100.2200, L7000.1800 #### [facility] Laboratory [address] [place], [address] MCV (RBC) [Entitic vol] 89.5 fL Normal 81-99 [facility] Comment on above: Performed By: #### L 501.0900, M100.2200, L7000.1800 #### [facility] [address] [place], [address] Monocytes/100 WBC (Bld) 6.6 % Normal 0-10 [facility] Comment on above: Performed By: #### L 501.0900, M100.2200, L7000.1800 #### [facility] Laboratory [address] [place], [address] Neutrophils/100 WBC (Bld) 75.1 % High 47-70 [facility] Comment on above: Performed By: #### L 501.0900, M100.2200, L7000.1800 #### [facility] Laboratory [address] [place], [address] Nucleated RBC (Bld) [#/Vol] 0 10*3/uL Normal 0-5 [facility] Comment on above: Performed By: #### L 501.0900, M100.2200, L7000.1800 #### [facility] Laboratory [address] [place], [address] Platelet mean volume (Bld) [Entitic vol] 10.0 fL Normal 6.2-12.0 [facility] Comment on above: Performed By: #### L 501.0900, M100.2200, L7000.1800 #### [facility] Laboratory [address] [place], [address] Platelets (Bld) [#/Vol] 228 10*3/uL Normal 150-450 [facility] Comment on above: Performed By: #### L 501.0900, M100.2200, L7000.1800 #### [facility] Laboratory [address] [place], [address] RBC (Bld) [#/Vol] 4.09 10*6/uL Low 4.2-5.4 [facility] Comment on above: Performed By: #### L 501.0900, M100.2200, L7000.1800 #### [facility] Laboratory [address] [place], [address] RDW SD 41.0 fl Normal 35.1-43.9 [facility] Comment on above: Performed By: #### L 501.0900, M100.2200, L7000.1800 #### [facility] Laboratory [address] [place], [address] WBC (Bld) [#/Vol] 8.6 10*3/uL Normal 4.4-11.0 [facility] Comment on above: Performed By: #### L 501.0900, M100.2200, L7000.1800 #### [facility] Laboratory [address] [place], [address] Eosinophil percentageOrdered By: Manda Aguirre on 04-18-2025 Eosinophils/100 WBC (Bld) 0.5 % 0-5 [facility] Erythrocyte distribution wid th ratioOrdered By: Manda Aguirre on 04-18-2025 Erythrocyte distribution width (RBC) [Ratio] 12.5 % 11.6-14.6 [facility] Erythrocyte distribution wid th standard deviationOrdered By: Manda Aguirre on 04-18-2025 Erythrocyte distribution width (RBC) [Ratio] 41.0 fl 35.1-43.9 [facility] Free Q8Setimjg By: Denis Galdamez on 04-18-2025 Free T3 [Mass/Vol] 2.8 pg/mL 2.18-3.98 [facility] Free T3on 04-18-2025 Free T3 [Mass/Vol] 2.8 pg/mL Normal 2.18-3.98 [facility] Comment on above: Performed By: #### L 501.0900, M100.2200, L7000.1800 #### [facility] Laboratory [address] [facility] [place], [place], [id number] Glucose Challenge Gest 1H 50 tatyana 04-18-2025 GLU GEST 50g 1H 136 mg/dL Normal 70-140 [facility] Comment on above: Result Comment: AMENDED REPORT 04/18/25 1330 GLU GEST 50g 1H previously reported as: 136 mg/dL Performed By: #### L 501.0900, M100.2200, L7000.1800 #### [facility] Laboratory [address] [facility] [place], [place], [id number] Glucose measurement at 2 meir rs post-dose gestational glucose tolerance testOrdered By: Manda Aguirre on 04-18-2025 Glucose [Mass/Vol] 142 mg/dL High 70-140 [facility] Comment on above: Previous reported re sult: 136 mg/dLEdited by: ALEXANDER on 04/18/25:1330 AMENDED REPORT 04/18/25 1330 GLU GEST 50g 1H previously reported as: 136 mg/dL HIVon 04-18-2025 HIV Non-Reactive Normal Nonreactive [facility] Comment on above: Result Comment: Non- Reactive Reactive Repeatedly reactive samples must be confirmed according to CDC recommended confirmatory algorithms. The subresults for either HIVAG or AHIV can be used as an aid in the selection of the confirmation algorithm for reactive samples. Send out specimens with Reactive results to [facility] for confirmation. Order the HIV antibody detection and differentiation: lc#[id number] Performed By: #### L 501.0900, M100.2200, L7000.1800 #### [facility] Laboratory [address] [place], [address] Hematocrit Auto (Bld) [Volum e fraction]Ordered By: Manda Aguirre on 04-18-2025 Hematocrit (Bld) [Volume fraction] 36.6 % Low 37-47 [facility] Hemoglobin measurementOrdere d By: Manda Aguirre on 04-18-2025 Hemoglobin (Bld) [Mass/Vol] 12.5 g/dL 12.0-15.0 [facility] Immature granulocytes/100 WB C Auto (Bld)Ordered By: Manda Aguirre on 04-18-2025 Immature granulocytes/100 WBC (Bld) 0.700 % 0.0-0.9 [facility] Comment on above: IG% - Immature Granu locytes (promyelocytes, myelocytes and metamyelocytes) > 1% indicates that a LEFT SHIFT is Present. Laboratory - Chemistry and C hemistry - challengeOrdered By: Carmelita Cary on 04-18-2025 Glucose Ql (U) Negative [facility] Laboratory - UrinalysisOrder ed By: Carmelita Cary on 04-18-2025 Protein Ql (U) Negative [facility] MCV (mean corpuscular volume ) determinationOrdered By: Manda Aguirre on 04-18-2025 MCV (RBC) [Entitic vol] 89.5 fL 81-99 [facility] Mean corpuscular hemoglobin (MCH) determinationOrdered By: Manda Aguirre on 04-18-2025 MCH (RBC) [Entitic mass] 30.6 pg 27.0-32.0 [facility] Mean corpuscular hemoglobin concentration (MCHC) determinationOrdered By: Manda Aguirre on 04-18-2025 MCHC (RBC) [Mass/Vol] 34.2 g/dL 32-36 [facility] Mean platelet volume determi nationOrdered By: Manda Aguirre on 04-18-2025 Platelet mean volume (Bld) [Entitic vol] 10.0 fL 6.2-12.0 [facility] Monocyte percentageOrdered B y: Manda Aguirre on 04-18-2025 Monocytes/100 WBC (Bld) 6.6 % 0-10 [facility] Neutrophil percentageOrdered By: Manda Aguirre on 04-18-2025 Neutrophils/100 WBC (Bld) 75.1 % High 47-70 [facility] No Panel InformationOrdered By: Manda Aguirre on 04-18-2025 HIV (1&2) Antibody Non-Reactive Nonreactive [facility] Comment on above: Non-ReactiveReactive Repeatedly reactive samples must be confirmed according to CDC recommended confirmatory algorithms. The subresults for either HIVAG or AHIV can be used as an aid in the selection of the confirmation algorithm for reactive samples.Send out specimens with Reactive results to [facility] for confirmation.Order the HIV antibody detection and differentiation: #[id number] Nucleated red blood cell per centageOrdered By: Manda Aguirre on 04-18-2025 Nucleated RBC/100 WBC (Bld) [Ratio] 0 % 0-5 [facility] [employer] Office Visit Reporton 04-18-2025 [employer] Office Visit Report [facility]'s [address], [address] [place] [address] OFFICE VISIT Date of Service: 04/18/25 MR#: [id number] Acct: [id number] Name: DEMARCUS ABAD Rep #: [id number] : 1990 Provider: Dr. Carmelita Rossi DO Age/Sex: 35/F Location[place] [facility] [place] Status: Signed Intake Vital Signs 01/25/25 13:59 04/02/25 18:35 04/18/25 10:56 04/18/25 10:59 Height 5 ft 2 in 5 ft 2 in 5 ft 2 in 5 ft 2 in Weight: 183 lb 9 oz BMI 33.5 BP 106/71 Intake Visit Reasons: 28wk ob/glucose Title Specialist Required: No Is patient in pain?: No Allergies Penicillins Allergy (Unknown, Verified 04/18/25 10:56) Unknown Medications ???Medication ???Instructions ???Recorded ???Confirmed ???Type multivit-min no.71-iron fum 28 1 cap PO DAILY 11/12/24 04/18/25 H istory mg-folate no.1 1 mg-dha 300 mg capsule (PNV-Cathay) methimazole 5 mg tablet 2.5 mg (1/2 [...] History of bunionectomy of right great toe Mertens teeth extracted History of colposcopy Family History Mother Hypertension Father Diabetes Aunt Thyroid disorder Maternal- unknown type Social History adopted: No household members: spouse and children housing: house number of children: 2 current occupational status: unemployed current occupation: [employer] pets and animals: Yes (no litter [...] physical activity do you participate in: none [place]/advent: [employer] seatbelt use: always do you feel safe at home: Yes 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 Date Name GA/Weeks Outcome Route Bth Weight Infant Gen Labor Lgth Anesthesia Del Locatn Provider FOB Unknown 08/2024 6 spontaneous 04/30/08 Shlomo 36 live - 6# Male epidural [facility] Taye 08/08/21 Emalie 36 live - 6lbs 14oz Female epidural [facility] [place] Delivery Date: 04/30/08 Last Updated by: Manda Aguirre MACHINE LEARNING INTERN, MACHINE LEARNING INTERN-C Induced to preeclampsia, teen Delivery Date: 08/08/21 [...] -???-???- 13 (more content not included)... Normal [facility] Platelet countOrdered By: Kenneth Aguirre on 04-18-2025 Platelets (Bld) [#/Vol] 228 10*3/uL 150-450 [facility] RBC Auto (Bld) [#/Vol]Ordere d By: Manda Aguirre on 04-18-2025 RBC (Bld) [#/Vol] 4.09 10*6/uL Low 4.2-5.4 [facility] Syphilis Antibodieson 2024 Syphilis Abs Non-Reactive Normal Nonreactive [facility] Comment on above: Performed By: #### L 501.0900, M100.2200, L7000.1800 #### [facility] Laboratory [address] [place], [place], [id number] T4 Free Directon 04-18-2025 T4 FREE DIRECT 0.70 ng/dL Low 0.76-1.46 [facility] Comment on above: Performed By: #### L 501.0900, M100.2200, L7000.1800 #### [facility] Laboratory [address] [place], [address] T4 freeOrdered By: Denis Galdamez on 04-18-2025 Free T4 [Mass/Vol] 0.70 ng/dL Low 0.76-1.46 [facility] TSH DL <= 0.005 mIU/L QnOrde red By: Denis Galdamez on 04-18-2025 TSH Qn 0.426 uIU/mL 0.300-4.200 [facility] Thyroid Stim Hormone (TSH)on 04-18-2025 TSH 0.426 uIU/mL Normal 0.300-4.200 [facility] Comment on above: Performed By: #### L 501.0900, M100.2200, L7000.1800 #### [facility] Laboratory [address] [place], [address] White blood cell (WBC) count Ordered By: Manda Aguirre on 04-18-2025 WBC (Bld) [#/Vol] 8.6 10*3/uL 4.4-11.0 [facility] OB Triage Physician Noteon 0 04-03-2025 OB Triage Physician Note [facility] Medical Records Department [address] [place] [address] OB Triage Physician Note 04/03/25 1535 MR#: [id number] Acct: [id number] Name: DEMARCUS ABAD Rep #: [id number] : 1990 35 From: William Ceballos MD PCP: Dr. Beatriz Escobar MD Status:[facility] Location: [facility] DEMARCUS ABAD, is a 35 F G4, [...] 1 mg-dha 300 mg 1 cap capsule (PNV-Cathay) methimazole 5 mg tablet 2.5 mg (1/2 x 5 mg) PO .every 01/0403/30/25 08:00 Rx other day #15 tabs 2.5 mg Allergy/AdvReac Type Severity Reaction Status Date / Time Penicillins Allergy Unknown Unknown Verified 04/02/25 18:30 Family History Mother Hypertension Father Diabetes Aunt Thyroid disorder Maternal- unknown type Surgical History History of bunionectomy of right great toe Mertens teeth extracted History of colposcopy Social History adopted: No household members: spouse and children housing: house number of children: 2 current occupational status: unemployed current occupation: [employer] pets and animals: Yes (no litter [...] physical activity do you participate in: none [place]/advent: Advent seatbelt use: always do you feel safe at home: Yes 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 Date Name GA/Weeks Outcome Route Bth Weight Gen Labor Lgth Anesthesia Del Locatn Provider FOB Unknown 08/2024 6 spontaneous 04/30/08 Shlomo 36 live - 6# Male epidural [facility] Taye 08/08/21 Emalie 36 live - 6lbs 14oz Female epidural [facility] [place] Delivery Date: 04/30/08 Last Updated by: Manda Aguirre MACHINE LEARNING INTERN, MACHINE LEARNING INTERN-C Induced to preeclampsia, teen Delivery Date: 08/08/21 [...] Note 11/24/24 (more content not included)... Normal [facility] Laboratory - Chemistry and C hemistry - challengeOrdered By: Manda Aguirre on 03-22-2025 Glucose Ql (U) Negative [facility] Laboratory - UrinalysisOrder ed By: Manda Aguirre on 03-22-2025 Protein Ql (U) Negative [facility] [employer] Office Visit Reporton 03-22-2025 [employer] Office Visit Report [facility] [address], [address] [place] [address] OFFICE VISIT Date of Service: 03/22/25 MR#: [id number] Acct: [id number] Name: DEMARCUS ABAD Rep #: [id number] : 1990 Provider: LUCILA arriola Age/Sex: 35/F Location[place] [facility] Status: Signed Intake Vital Signs 01/25/25 13:59 02/21/25 11:01 03/22/25 10:32 03/22/25 10:36 Height 5 ft 2 in 5 ft 2 in 5 ft 2 in 5 ft 2 in Weight: 178 lb 1 oz BMI 32.5 BP 111/75 Intake Visit Reasons: 24wk ob Chief Complaint: 24 Week OB Title Specialist Required: No Is patient in pain?: No Allergies Penicillins Allergy (Unknown, Verified 03/22/25 10:35) Unknown Medications ???Medication ???Instructions ???Recorded ???Confirmed ???Type ferrous sulfate 325 mg (65 mg 325 mg PO DAILY 09/05/23 03/22/25 History iron) tablet (Feosol) multivit-min no.71-iron fum 28 cap PO 11/12/24 03/22/25 History mg-folate no.1 1 mg-dha 300 mg capsule (PNV-Cathay) methimazole 5 mg tablet 2.5 mg (1/2 [...] History of bunionectomy of right great toe Mertens teeth extracted History of colposcopy Family History Mother Hypertension Father Diabetes Aunt Thyroid disorder Maternal- unknown type Social History adopted: No household members: spouse and children housing: house number of children: 2 current occupational status: unemployed current occupation: [employer] pets and animals: Yes (no litter [...] physical activity do you participate in: none [place]/advent: Advent seatbelt use: always do you feel safe at home: Yes 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 Date Name GA/Weeks Outcome Route Bth Weight Gen Labor Lgth Anesthesia Del Locatn Provider FOB Unknown 08/2024 6 spontaneous 04/30/08 Shlomo 36 live - 6# Male epidural [facility] Taye 08/08/21 Emalie 36 live - 6lbs 14oz Female epidural [facility] [place] Delivery Date: 04/30/08 Last Updated by: Manda Aguirre MACHINE LEARNING INTERN, MACHINE LEARNING INTERN-C Induced to preeclampsia, teen Delivery Date: 08/08/21 [...] KW- CRL (more content not included)... Normal [facility] Absolute lymphocyte countOrd ered By: Lyssa Aguila on 02-21-2025 Lymphocytes Auto (Unsp spec) [#/Vol] 1.56 10*3/uL 0.83-4.51 [facility] Absolute neutrophil countOrd ered By: Lyssa Aguila on 02-21-2025 Neutrophils (Bld) [#/Vol] 7.8 10*3/uL High 2.0-7.7 [facility] Automated lymphocyte count a s percentage of total leukocytesOrdered By: Lyssa Aguila on 02-21-2025 Lymphocytes/100 WBC Auto (Unsp spec) 15.5 % Low 19-41 [facility] Basophil percentageOrdered B y: Lyssa Aguila on 02-21-2025 Basophils/100 WBC (Bld) 0.3 % 0-1 [facility] CBC W/Diff, Automatedon 02-04 Absolute Lymph 1.56 X10 3/uL Normal 0.83-4.51 [facility] Comment on above: Performed By: #### L 501.0900, M100.2200, L7000.1800 #### [facility] Laboratory [address] [place], [address] Absolute Neut 7.8 X10 3/uL High 2.0-7.7 [facility] Comment on above: Performed By: #### L 501.0900, M100.2200, L7000.1800 #### [facility] Laboratory [address] [place], [address] Basophils/100 WBC (Bld) 0.3 % Normal 0-1 [facility] Comment on above: Performed By: #### L 501.0900, M100.2200, L7000.1800 #### [facility] Laboratory [address] [place], [address] Eosinophils/100 WBC (Bld) 0.7 % Normal 0-5 [facility] Comment on above: Performed By: #### L 501.0900, M100.2200, L7000.1800 #### [facility] Laboratory [address] [place], [address] Erythrocyte distribution width (RBC) [Ratio] 13.0 % Normal 11.6-14.6 [facility] Comment on above: Performed By: #### L 501.0900, M100.2200, L7000.1800 #### [facility] Laboratory [address] [place], [address] Hematocrit (Bld) [Volume fraction] 39.3 % Normal 37-47 [facility] Comment on above: Performed By: #### L 501.0900, M100.2200, L7000.1800 #### [facility] Laboratory [address] [place], [address] Hemoglobin (Bld) [Mass/Vol] 13.4 g/dL Normal 12.0-15.0 [facility] Comment on above: Performed By: #### L 501.0900, M100.2200, L7000.1800 #### [facility] Laboratory [address] [place], [address] IG% 0.500 Normal 0.0-0.9 [facility] Comment on above: Result Comment: IG% - Immature Granulocytes (promyelocytes, myelocytes and metamyelocytes) > 1% indicates that a LEFT SHIFT is Present. Performed By: #### L 501.0900, M100.2200, L7000.1800 #### [facility] Laboratory [address] [place], [address] Lymphocytes/100 WBC (Bld) 15.5 % Low 19-41 [facility] Comment on above: Performed By: #### L 501.0900, M100.2200, L7000.1800 #### [facility] Laboratory [address] [place], [address] MCH (RBC) [Entitic mass] 30.1 pg Normal 27.0-32.0 [facility] Comment on above: Performed By: #### L 501.0900, M100.2200, L7000.1800 #### [facility] Laboratory [address] [place], [address] MCHC (RBC) [Mass/Vol] 34.1 g/dL Normal 32-36 [facility] Comment on above: Performed By: #### L 501.0900, M100.2200, L7000.1800 #### [facility] Laboratory [address] [place], [address] MCV (RBC) [Entitic vol] 88.3 fL Normal 81-99 [facility] Comment on above: Performed By: #### L 501.0900, M100.2200, L7000.1800 #### [facility] Laboratory [address] [place], [address] Monocytes/100 WBC (Bld) 5.7 % Normal 0-10 [facility] Comment on above: Performed By: #### L 501.0900, M100.2200, L7000.1800 #### [facility] Laboratory [address] [place] [place], [address] Neutrophils/100 WBC (Bld) 77.3 % High 47-70 [facility] Comment on above: Performed By: #### L 501.0900, M100.2200, L7000.1800 #### [facility] Laboratory [address] [place], [address] Nucleated RBC (Bld) [#/Vol] 0 10*3/uL Normal 0-5 [facility] Comment on above: Performed By: #### L 501.0900, M100.2200, L7000.1800 #### [facility] Laboratory [address] [place], [address] Platelet mean volume (Bld) [Entitic vol] 10.1 fL Normal 6.2-12.0 [facility] Comment on above: Performed By: #### L 501.0900, M100.2200, L7000.1800 #### [facility] Laboratory [address] [place] [place], [address] Platelets (Bld) [#/Vol] 238 10*3/uL Normal 150-450 [facility] Comment on above: Performed By: #### L 501.0900, M100.2200, L7000.1800 #### [facility] Laboratory [address] [place], [address] RBC (Bld) [#/Vol] 4.45 10*6/uL Normal 4.2-5.4 [facility] Comment on above: Performed By: #### L 501.0900, M100.2200, L7000.1800 #### [facility] Laboratory [address] [place], [address] RDW SD 41.8 fl Normal 35.1-43.9 [facility] Comment on above: Performed By: #### L 501.0900, M100.2200, L7000.1800 #### [facility] Laboratory [address] [place], [address] WBC (Bld) [#/Vol] 10.1 10*3/uL Normal 4.4-11.0 [facility] Comment on above: Performed By: #### L 501.0900, M100.2200, L7000.1800 #### [facility] Laboratory [address] [place], [address] Eosinophil percentageOrdered By: Lyssa Aguila on 02-21-2025 Eosinophils/100 WBC (Bld) 0.7 % 0-5 [facility] Erythrocyte distribution wid th ratioOrdered By: Lyssa Aguila on 02-21-2025 Erythrocyte distribution width (RBC) [Ratio] 13.0 % 11.6-14.6 [facility] Erythrocyte distribution wid th standard deviationOrdered By: Lyssa Aguila on 02-21-2025 Erythrocyte distribution width (RBC) [Ratio] 41.8 fl 35.1-43.9 [facility] Free T3on 02-21-2025 Free T3 [Mass/Vol] 2.8 pg/mL Normal 2.18-3.98 [facility] Comment on above: Performed By: #### L 501.0900, M100.2200, L7000.1800 #### [facility] Laboratory [address] [place], [address] Free L5Tnlmjxy By: Denis Galdamez on 02-21-2025 Free T3 [Mass/Vol] 2.8 pg/mL 2.18-3.98 [facility] Hematocrit Auto (Bld) [Volum e fraction]Ordered By: Lyssa Aguila on 02-21-2025 Hematocrit (Bld) [Volume fraction] 39.3 % 37-47 [facility] Hemoglobin measurementOrdere d By: Lyssa Aguila on 02-21-2025 Hemoglobin (Bld) [Mass/Vol] 13.4 g/dL 12.0-15.0 [facility] Immature granulocytes/100 WB C Auto (Bld)Ordered By: Lyssa Aguila on 02-21-2025 Immature granulocytes/100 WBC (Bld) 0.500 % 0.0-0.9 [facility] Comment on above: IG% - Immature Granu locytes (promyelocytes, myelocytes and metamyelocytes) > 1% indicates that a LEFT SHIFT is Present. Laboratory - Chemistry and C hemistry - challengeOrdered By: Lyssa Aguila on 02-21-2025 Glucose Ql (U) Negative [facility] Laboratory - UrinalysisOrder ed By: Lyssa Aguila on 02-21-2025 Protein Ql (U) Negative [facility] MCV (mean corpuscular volume ) determinationOrdered By: Lyssa Aguila on 02-21-2025 MCV (RBC) [Entitic vol] 88.3 fL 81-99 [facility] Mean corpuscular hemoglobin (MCH) determinationOrdered By: Lyssa Aguila on 02-21-2025 MCH (RBC) [Entitic mass] 30.1 pg 27.0-32.0 [facility] Mean corpuscular hemoglobin concentration (MCHC) determinationOrdered By: Lyssa Aguila on 02-21-2025 MCHC (RBC) [Mass/Vol] 34.1 g/dL 32-36 [facility] Mean platelet volume determi nationOrdered By: Lyssa Aguila on 02-21-2025 Platelet mean volume (Bld) [Entitic vol] 10.1 fL 6.2-12.0 [facility] Monocyte percentageOrdered B y: Lyssa Aguila on 02-21-2025 Monocytes/100 WBC (Bld) 5.7 % 0-10 [facility] Neutrophil percentageOrdered By: Lyssa Aguila on 02-21-2025 Neutrophils/100 WBC (Bld) 77.3 % High 47-70 [facility] Nucleated red blood cell per centageOrdered By: Lyssa Aguila on 02-21-2025 Nucleated RBC/100 WBC (Bld) [Ratio] 0 % 0-5 [facility] [employer] Office Visit Reporton 02-21-2025 [employer] Office Visit Report [facility] [address], [address] [place] [address] OFFICE VISIT Date of Service: 02/21/25 MR#: [id number] Acct: [id number] Name: DEMARCUS ABAD Rep #: [id number] : 1990 Provider: SULLY Boudreaux ams Age/Sex: 35/F Location: [facility] [place] Status: Signed Intake Vital Signs 12/27/24 09:51 01/25/25 13:59 02/21/25 11:01 Height 5 ft 2 in 5 ft 2 in 5 ft 2 in Weight: 167 lb 2 oz 170 lb 8 oz BMI 30.5 31.1 BP 111/73 103/68 Intake Visit Reasons: 20 wk ob Chief Complaint: 20wk OB Title Specialist Required: No Is patient in pain?: No Allergies Penicillins Allergy (Unknown, Verified 02/21/25 10:59) Unknown Medications ???Medication ???Instructions ???Recorded ???Confirmed ???Type ferrous sulfate 325 mg (65 mg 325 mg PO DAILY 09/05/23 02/21/25 History iron) tablet (Feosol) multivit-min no.71-iron fum 28 cap PO 11/12/24 02/21/25 History mg-folate no.1 1 mg-dha 300 mg capsule (PNV-Cathay) methimazole 5 mg tablet 2.5 mg (1/2 x 5 mg) PO .every 01/0402/21/25 Rx other day #15 tabs Last Menstrual Period: 09/27/24 : No PFSH PFSH Medical History Hot thyroid nodule Hx of varicose veins of lower extremity Depression Nodular goiter HPV (human papilloma virus) infection Thyroid disorder Pre-eclampsia Abnormal glucose Anemia Surgical History History of bunionectomy of right great toe Mertens teeth extracted History of colposcopy Family History Mother Hypertension Father Diabetes Aunt Thyroid disorder Maternal- unknown type Social History adopted: No household members: spouse and children housing: house number of children: 2 current occupational status: unemployed current occupation: [employer] pets and animals: Yes (no litter [...] physical activity do you participate in: none [place]/advent: [employer] seatbelt use: always do you feel safe at home: Yes 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 Date Name GA/Weeks Outcome Route Bth Weight Infant Gen Labor Lgth Anesthesia Del Locatn Provider FOB Unknown 08/2024 6 spontaneous 04/30/08 Shlomo 36 live - 6# Male epidural [facility] Taye 08/08/21 Emalie 36 live - 6lbs 14oz Female epidural [facility] [place] Delivery Date: 04/30/08 Last Updated by: Manda Aguirre MACHINE LEARNING INTERN, MACHINE LEARNING INTERN-C Induced to preeclampsia, teen Delivery Date: 08/08/21 [...] -???-???-???-???-??? - (more content not included)... Normal [facility] Platelet countOrdered By: Miko Aguila on 02-21-2025 Platelets (Bld) [#/Vol] 238 10*3/uL 150-450 [facility] RBC Auto (Bld) [#/Vol]Ordere d By: Lyssa Aguila on 02-21-2025 RBC (Bld) [#/Vol] 4.45 10*6/uL 4.2-5.4 [facility] T4 Free Directon 02-21-2025 T4 FREE DIRECT 0.80 ng/dL Normal 0.76-1.46 [facility] Comment on above: Performed By: #### L 501.0900, M100.2200, L7000.1800 #### [facility] Laboratory [address] [place], [place], [address] T4 freeOrdered By: Denis Galdamez on 02-21-2025 Free T4 [Mass/Vol] 0.80 ng/dL 0.76-1.46 [facility] TSH DL <= 0.005 mIU/L QnOrde red By: Denis Galdamez on 02-21-2025 TSH Qn 0.193 uIU/mL Low 0.300-4.200 [facility] Thyroid Stim Hormone (TSH)on 02-21-2025 TSH 0.193 uIU/mL Low 0.300-4.200 [facility] Comment on above: Performed By: #### L 501.0900, M100.2200, L7000.1800 #### [facility] Laboratory [address] [place], [address] White blood cell (WBC) count Ordered By: Lyssa Aguila on 02-21-2025 WBC (Bld) [#/Vol] 10.1 10*3/uL 4.4-11.0 [facility] Laboratory - Chemistry and C hemistry - challengeOrdered By: Gaby Trimble on 01-25-2025 Glucose Ql (U) Negative [facility] Laboratory - UrinalysisOrder ed By: Gaby Trimble on 01-25-2025 Protein Ql (U) Negative [facility] [employer] Office Visit Reporton 01-25-2025 [employer] Office Visit Report [facility] [address] [place] [address], [address] [place] [address] OFFICE VISIT Date of Service: 01/25/25 MR#: [id number] Acct: [id number] Name: DEMARCUS ABAD Rep #: [id number] : 1990 Provider: Dr. Gaby rondon MD Age/Sex: 34/F Location: [facility] [place] Status: Signed Intake Vital Signs 11/24/24 12:59 01/10/25 13:57 01/25/25 13:59 Height 5 ft 2 in 5 ft 2 in 5 ft 2 in Weight: 167 lb 2 oz BMI 30.5 BP 111/73 Intake Visit Reasons: 16 wk ob Title Specialist Required: No Is patient in pain?: Yes (severe round ligament pain this ) Allergies Penicillins Allergy (Unknown, Verified 01/25/25 14:00) Unknown Medications ???Medication ???Instructions ???Recorded ???Confirmed ???Type ferrous sulfate 325 mg (65 mg 325 mg PO DAILY 09/05/23 01/25/25 History iron) tablet (Feosol) multivit-min no.71-iron fum 28 cap PO 11/12/24 01/25/25 History mg-folate no.1 1 mg-dha 300 mg capsule (PNV-Cathay) methimazole 5 mg tablet 2.5 mg (1/2 [...] History of bunionectomy of right great toe Mertens teeth extracted History of colposcopy Family History Mother Hypertension Father Diabetes Aunt Thyroid disorder Maternal- unknown type Social History adopted: No household members: spouse and children housing: house number of children: 2 current occupational status: unemployed current occupation: [employer] pets and animals: Yes (no litter [...] physical activity do you participate in: none [place]/advent: [employer] seatbelt use: always do you feel safe [...] Shlomo 36 live - 6# Male epidural [facility] Taye 08/08/21 Emalie 36 live - 6lbs 14oz Female epidural [facility] [place] [address] [place] Delivery Date: 04/30/08 Last Updated by: Manda Aguirre MACHINE LEARNING INTERN, MACHINE LEARNING INTERN-C Induced to preeclampsia, teen Delivery Date: 08/08/21 [...] -???-???- KW (more content not included)... Normal [facility] Free T3on 01-17-2025 Free T3 [Mass/Vol] 3.3 pg/mL Normal 2.18-3.98 [facility] Comment on above: Performed By: #### L 501.9557, L501.58377, L506.0400 #### [facility] Laboratory [address] [place], [address] Free [id number] By: Denis Galdamez on 01-17-2025 Free T3 [Mass/Vol] 3.3 pg/mL 2.18-3.98 [facility] T4 Free Directon 01-17-2025 T4 FREE DIRECT 1.00 ng/dL Normal 0.76-1.46 [facility] Comment on above: Performed By: #### L 501.9520, L501.14623, L506.0400 #### [facility] Laboratory [address] [place], [address] T4 freeOrdered By: Denis Galdamez on 01-17-2025 Free T4 [Mass/Vol] 1.00 ng/dL 0.76-1.46 [facility] TSH DL <= 0.005 mIU/L QnOrde red By: Denis Galdamez on 01-17-2025 TSH Qn 0.022 uIU/mL Low 0.300-4.200 [facility] Thyroid Stim Hormone (TSH)on 01-17-2025 TSH 0.022 uIU/mL Low 0.300-4.200 [facility] Comment on above: Performed By: #### L 501.9520, L501.10638, L506.0400 #### [facility] Laboratory [address] [place], [address] [employer] Office Visit Reporton 01-10-2025 [employer] Office Visit Report [facility] [address], [address] [place] [address] OFFICE VISIT Date of Service: 01/10/25 MR#: [id number] Acct: [id number] Name: DEMARCUS ABAD Rep #: [id number] : 1990 Provider: LUCILA arriola Age/Sex: 34/F Location: [facility] [place] Status: Signed Intake Vital Signs 12/30/24 13:27 [...] check Chief Complaint: 15 Week heart check Title Specialist Required: No Is patient in pain?: No Allergies Penicillins Allergy (Unknown, Verified 01/10/25 13:53) Unknown Medications ???Medication ???Instructions ???Recorded ???Confirmed ???Type ferrous sulfate 325 mg (65 mg 325 mg PO DAILY 09/05/23 01/10/25 History iron) tablet (Feosol) multivit-min no.71-iron fum 28 cap PO 11/12/24 01/10/25 History mg-folate no.1 1 mg-dha 300 mg capsule (PNV-Cathay) Last Menstrual Period: 09/27/24 Zika: Zika virus screening: Negative : No PFSH PFSH Medical History Hot thyroid nodule Hx of varicose veins of lower extremity Depression Nodular goiter HPV (human papilloma virus) infection Thyroid disorder Pre-eclampsia Abnormal glucose Anemia Surgical History History of bunionectomy of right great toe Mertens teeth extracted History of colposcopy Family History Mother Hypertension Father Diabetes Aunt Thyroid disorder Maternal- unknown type Social History adopted: No household members: spouse and children housing: house number of children: 2 current occupational status: unemployed current occupation: [employer] pets and animals: Yes (no litter [...] physical activity do you participate in: none [place]/advent: [employer] seatbelt use: always do you feel safe [...] Shlomo 36 live - 6# Male epidural [facility] Taye 08/08/21 Emalie 36 live - 6lbs 14oz Female epidural [facility] Va nde Velde Delivery Date: 04/30/08 Last Updated by: Manda Aguirre MACHINE LEARNING INTERN, MACHINE LEARNING INTERN-C Induced to preeclampsia, teen Delivery Date: 08/08/21 [...] -???-???-???-???-??? -???-???-?? (more content not included)... Normal [facility] Endocrinology Visit Reporton 12-30-2024 Endocrinology Visit Report [facility] [address] [place] [address] OFFICE VISIT Date of Service: 12/30/24 MR#: [id number] Acct: [id number] Name: DEMARCUS ABAD Rep #: [id number] : 1990 Provider: Ashly Yusuf Age/Sex: 34/F [place] [facility] [place] Status: Signed Intake Vital Signs 12/27/24 09:51 [...] mg-folate no.1 1 mg-dha 300 mg capsule (PNV-Cathay) Patient : Yes (13 weeks) [facility] Medical History (Updated 01/03/25 @ 10:[address] Denis Galdamez MD) Hot thyroid nodule Hx of varicose veins of lower extremity Depression Nodular goiter HPV (human papilloma virus) infection Thyroid disorder Pre-eclampsia Abnormal glucose Anemia Surgical History History of bunionectomy of right great toe Mertens teeth extracted History of colposcopy Family History Mother Hypertension Father Diabetes Aunt Thyroid disorder Maternal- unknown type Social History adopted: No household members: spouse and children housing: house number of children: 2 current occupational status: unemployed current occupation: [employer] pets and animals: Yes (no litter [...] physical activity do you participate in: none [place]/advent: [employer] seatbelt use: always do you feel safe at home: Yes additional social history: [email or web address] [facility] Female Reproductive History Menstrual Ab spontaneous: [...] normal Periorbital: (more content not included)... Normal [facility] Urine Cultureon 12-28-2024 URC Culture exhibits no growth. Normal [facility] Comment on above: Performed By: #### L 501.0900, M100.2200, L7000.1800 #### [facility] Laboratory [address] [place], [place], [id number] Absolute lymphocyte countOrd ered By: Lyssa Aguila on 12-27-2024 Lymphocytes Auto (Unsp spec) [#/Vol] 1.50 10*3/uL 0.83-4.51 [facility] Absolute neutrophil countOrd ered By: Lyssa Aguila on 12-27-2024 Neutrophils (Bld) [#/Vol] 5.7 10*3/uL 2.0-7.7 [facility] Anion gap in Serum or Plasma Ordered By: Lyssa Aguila on 12-27-2024 Anion gap [Moles/Vol] 12 mmol/L 5-15 [facility] Automated lymphocyte count a s percentage of total leukocytesOrdered By: Lyssa Aguila on 12-27-2024 Lymphocytes/100 WBC Auto (Unsp spec) 19.2 % 19-41 [facility] BUN/creatinine ratioOrdered By: Lyssa Aguila on 06-23-2025 Urea nitrogen/Creatinine [Mass ratio] 8.3 mg/mg Low 10-20 [facility] Comment on above: Previous reported re sult: 8.0 RATIOEdited by: AUTOINS on 12/27/24:1342 AMENDED REPORT 12/27/24 1342 BUN/CRE previously reported as: 8.0 L RATIO Basophil percentageOrdered B y: Lyssa Aguila on 12-27-2024 Basophils/100 WBC (Bld) 0.4 % 0-1 [facility] Bilirubin, totalOrdered By: Lyssa Aguila on 12-27-2024 Bilirubin [Mass/Vol] 0.27 mg/dL 0.00-1.30 [facility] Comment on above: Previous reported re sult: 0.26 mg/dLEdited by: AUTOINDevi on 12/27/24:1342 AMENDED REPORT 12/27/241341 T BILI previously reported as: 0.26 mg/dL CBC W/Diff, Automatedon 12-06 Absolute Lymph 1.50 X10 3/uL Normal 0.83-4.51 [facility] Comment on above: Performed By: #### L 500.4050, L100.0100, L501.9985, L3890.6102, L3890.6006, L509.4006, L3890.6301, L501.9520, BTS, L509.8002, L900.0098 #### [facility] Laboratory [address] [facility] [place], [address] Absolute Neut 5.7 X10 3/uL Normal 2.0-7.7 [facility] Comment on above: Performed By: #### L 500.4050, L100.0100, L501.9985, L3890.6102, L3890.6006, L509.4006, L3890.6301, L501.9520, BTS, L509.8002, L900.0098 #### [facility] Laboratory [address] [place], [address] Basophils/100 WBC (Bld) 0.4 % Normal 0-1 [facility] Comment on above: Performed By: #### L 500.4050, L100.0100, L501.9985, L3890.6102, L3890.6006, L509.4006, L3890.6301, L501.9520, BTS, L509.8002, L900.0098 #### [facility] Laboratory [address] [place], [address] Eosinophils/100 WBC (Bld) 0.9 % Normal 0-5 [facility] Comment on above: Performed By: #### L 500.4050, L100.0100, L501.9985, L3890.6102, L3890.6006, L509.4006, L3890.6301, L501.9520, BTS, L509.8002, L900.0098 #### [facility] Laboratory [address] [place], [address] Erythrocyte distribution width (RBC) [Ratio] 12.5 % Normal 11.6-14.6 [facility] Comment on above: Performed By: #### L 500.4050, L100.0100, L501.9985, L3890.6102, L3890.6006, L509.4006, L3890.6301, L501.9520, BTS, L509.8002, L900.0098 #### [facility] Laboratory [address] [place], [address] Hematocrit (Bld) [Volume fraction] 41.4 % Normal 37-47 [facility] Comment on above: Performed By: #### L 500.4050, L100.0100, L501.9985, L3890.6102, L3890.6006, L509.4006, L3890.6301, L501.9520, BTS, L509.8002, L900.0098 #### [facility] Laboratory [address] [place], [address] Hemoglobin (Bld) [Mass/Vol] 13.9 g/dL Normal 12.0-15.0 [facility] Comment on above: Performed By: #### L 500.4050, L100.0100, L501.9985, L3890.6102, L3890.6006, L509.4006, L3890.6301, L501.9520, BTS, L509.8002, L900.0098 #### [facility] Laboratory [address] [place], [address] IG% 0.500 Normal 0.0-0.9 [facility] Comment on above: Result Comment: IG% - Immature Granulocytes (promyelocytes, myelocytes and metamyelocytes) > 1% indicates that a LEFT SHIFT is Present. Performed By: #### L 500.4050, L100.0100, L501.9985, L3890.6102, L3890.6006, L509.4006, L3890.6301, L501.9520, BTS, L509.8002, L900.0098 #### [facility] Laboratory [address] [place], [address] Lymphocytes/100 WBC (Bld) 19.2 % Normal 19-41 [facility] Comment on above: Performed By: #### L 500.4050, L100.0100, L501.9985, L3890.6102, L3890.6006, L509.4006, L3890.6301, L501.9520, BTS, L509.8002, L900.0098 #### [facility] Laboratory [address] [place], [address] MCH (RBC) [Entitic mass] 29.3 pg Normal 27.0-32.0 [facility] Comment on above: Performed By: #### L 500.4050, L100.0100, L501.9985, L3890.6102, L3890.6006, L509.4006, L3890.6301, L501.9520, BTS, L509.8002, L900.0098 #### [facility] Laboratory [address] [place], [address] MCHC (RBC) [Mass/Vol] 33.6 g/dL Normal 32-36 [facility] Comment on above: Performed By: #### L 500.4050, L100.0100, L501.9985, L3890.6102, L3890.6006, L509.4006, L3890.6301, L501.9520, BTS, L509.8002, L900.0098 #### [facility] Laboratory [address] [place], [address] MCV (RBC) [Entitic vol] 87.3 fL Normal 81-99 [facility] Comment on above: Performed By: #### L 500.4050, L100.0100, L501.9985, L3890.6102, L3890.6006, L509.4006, L3890.6301, L501.9520, BTS, L509.8002, L900.0098 #### [facility] Laboratory [address] [place], [address] Monocytes/100 WBC (Bld) 6.1 % Normal 0-10 [facility] Comment on above: Performed By: #### L 500.4050, L100.0100, L501.9985, L3890.6102, L3890.6006, L509.4006, L3890.6301, L501.9520, BTS, L509.8002, L900.0098 #### [facility] Laboratory [address] [place], [address] Neutrophils/100 WBC (Bld) 72.9 % High 47-70 [facility] Comment on above: Performed By: #### L 500.4050, L100.0100, L501.9985, L3890.6102, L3890.6006, L509.4006, L3890.6301, L501.9520, BTS, L509.8002, L900.0098 #### [facility] Laboratory [address] [place], [address] Nucleated RBC (Bld) [#/Vol] 0 10*3/uL Normal 0-5 [facility] Comment on above: Performed By: #### L 500.4050, L100.0100, L501.9985, L3890.6102, L3890.6006, L509.4006, L3890.6301, L501.9520, BTS, L509.8002, L900.0098 #### [facility] Laboratory [address] [facility] [place], [address] Platelet mean volume (Bld) [Entitic vol] 10.2 fL Normal 6.2-12.0 [facility] Comment on above: Performed By: #### L 500.4050, L100.0100, L501.9985, L3890.6102, L3890.6006, L509.4006, L3890.6301, L501.9520, BTS, L509.8002, L900.0098 #### [facility] Laboratory [address] [facility] [place], [address] Platelets (Bld) [#/Vol] 236 10*3/uL Normal 150-450 [facility] Comment on above: Performed By: #### L 500.4050, L100.0100, L501.9985, L3890.6102, L3890.6006, L509.4006, L3890.6301, L501.9520, BTS, L509.8002, L900.0098 #### [facility] Laboratory [address] [place], [address] RBC (Bld) [#/Vol] 4.74 10*6/uL Normal 4.2-5.4 [facility] Comment on above: Performed By: #### L 500.4050, L100.0100, L501.9985, L3890.6102, L3890.6006, L509.4006, L3890.6301, L501.9520, BTS, L509.8002, L900.0098 #### [facility] Laboratory [address] [place], [address] RDW SD 40.3 fl Normal 35.1-43.9 [facility] Comment on above: Performed By: #### L 500.4050, L100.0100, L501.9985, L3890.6102, L3890.6006, L509.4006, L3890.6301, L501.9520, BTS, L509.8002, L900.0098 #### [facility] Laboratory [address] [place], [address] WBC (Bld) [#/Vol] 7.8 10*3/uL Normal 4.4-11.0 [facility] Comment on above: Performed By: #### L 500.4050, L100.0100, L501.9985, L3890.6102, L3890.6006, L509.4006, L3890.6301, L501.9520, BTS, L509.8002, L900.0098 #### [facility] Laboratory [address] [place], [address] Carbon dioxide, total [Moles /volume] in Central venous bloodOrdered By: Lyssa Aguila on 12-27-2024 CO2 [Moles/Vol] 20.8 mmol/L Low 21.0-32.0 [facility] Comment on above: Previous reported re sult: 22.0 mmol/LEdited by: ALEXANDER on 12/27/24:1342 AMENDED REPORT 12/27/24 1342 CO2 previously reported as: 22.0 mmol/L Chloride assayOrdered By: Miko Aguila on 12-27-2024 Chloride [Moles/Vol] 102 mmol/L 98-108 [facility] Comment on above: Previous reported re sult: 101 mmol/LEdited by: AUTOINS on 12/27/24:1342 AMENDED REPORT 12/27/241341 CL previously reported as: 101 mmol/L Comprehensive Metabolic Prof ilon 12-27-2024 Albumin [Mass/Vol] 4.1 g/dL Normal 3.5-5.0 [facility] Comment on above: Result Comment: AMENDED REPORT 12/27/241341 ALB previously reported as: 4.1 g/dL Performed By: #### L 501.0900, M100.2200, L7000.1800 #### [facility] Laboratory [address] [place], [address] Albumin/Globulin [Mass ratio] 1.5 {ratio} Normal 0.9-2.4 [facility] Comment on above: Result Comment: AMENDED REPORT 12/27/241341 A/G previously reported as: 1.5 RATIO Performed By: #### L 501.0900, M100.2200, L7000.1800 #### [facility] Laboratory [address] [place], [address] ALK PHOS 61 U/L Normal 35-104 [facility] Comment on above: Result Comment: AMENDED REPORT 12/27/241341 ALK P previously reported as: 61 U/L Performed By: #### L 501.0900, M100.2200, L7000.1800 #### [facility] Laboratory [address] [place], [address] ALT [Catalytic activity/Vol] 15 U/L Normal <=34 [facility] Comment on above: Result Comment: AMENDED REPORT 12/27/241341 ALT previously reported as: 15 U/L Performed By: #### L 501.0900, M100.2200, L7000.1800 #### [facility] Laboratory [address] [place], [address] AST [Catalytic activity/Vol] 18 U/L Normal <=31 [facility] Comment on above: Performed By: #### L 501.0900, M100.2200, L7000.1800 #### [facility] Laboratory [address] [place], [address] Bilirubin [Mass/Vol] 0.26 mg/dL Normal 0.00-1.30 [facility] Comment on above: Result Comment: AMENDED REPORT 12/27/241341 T BILI previously reported as: 0.26 mg/dL Performed By: #### L 501.0900, M100.2200, L7000.1800 #### [facility] Laboratory [address] [place], [address] BUN/CRE 8.0 RATIO Low 10-20 [facility] Comment on above: Result Comment: AMENDED REPORT 12/27/241341 BUN/CRE previously reported as: 8.0 L RATIO Performed By: #### L 501.0900, M100.2200, L7000.1800 #### [facility] Laboratory [address] [place], [address] Calcium [Mass/Vol] 9.4 mg/dL Normal 7.6-11.0 [facility] Comment on above: Result Comment: AMENDED REPORT 12/27/241341 CA previously reported as: 9.4 mg/dL Performed By: #### L 501.0900, M100.2200, L7000.1800 #### [facility] Laboratory [address] [place], [address] Chloride [Moles/Vol] 101 mmol/L Normal 98-108 [facility] Comment on above: Result Comment: AMENDED REPORT 12/27/241341 CL previously reported as: 101 mmol/L Performed By: #### L 501.0900, M100.2200, L7000.1800 #### [facility] Laboratory [address] [place], [address] CO2 [Moles/Vol] 22.0 mmol/L Normal 21.0-32.0 [facility] Comment on above: Result Comment: AMENDED REPORT 12/27/241341 CO2 previously reported as: 22.0 mmol/L Performed By: #### L 501.0900, M100.2200, L7000.1800 #### [facility] Laboratory [address] [place], [address] Creatinine [Mass/Vol] 0.65 mg/dL Low 0.70-1.20 [facility] Comment on above: Result Comment: AMENDED REPORT 12/27/241341 CREAT,SERUM previously reported as: 0.65 L mg/dL Performed By: #### L 501.0900, M100.2200, L7000.1800 #### [facility] Laboratory [address] [place], [address] GAP 12 Normal 5-15 [facility] Comment on above: Performed By: #### L 501.0900, M100.2200, L7000.1800 #### [facility] Laboratory [address] [place], [address] GFR/1.73 sq M.predicted among non-blacks MDRD (S/P/Bld) [Vol rate/Area] 118 mL/min/{1.73_m2} Normal >60 [facility] Comment on above: Result Comment: mL/m in/1.73m2 CKD-EPI Creatinine Equation (2020) Performed By: #### L 501.0900, M100.2200, L7000.1800 #### [facility] Laboratory [address] [place], [address] Globulin (S) [Mass/Vol] 2.6 g/dL Normal 2.2-4.2 [facility] Comment on above: Result Comment: AMENDED REPORT 12/27/241341 GLOB previously reported as: 2.6 g/dL Performed By: #### L 501.0900, M100.2200, L7000.1800 #### [facility] Laboratory [address] [place], [address] Glucose [Mass/Vol] 74 mg/dL Normal 70-99 [facility] Comment on above: Result Comment: AMENDED REPORT 12/27/24 1342 GLU previously reported as: 74 mg/dL Performed By: #### L 501.0900, M100.2200, L7000.1800 #### [facility] Laboratory [address] [place], [address] Potassium [Moles/Vol] 4.0 mmol/L Normal 3.3-5.1 [facility] Comment on above: Result Comment: AMENDED REPORT 12/27/241341 K previously reported as: 4.0 mmol/L Performed By: #### L 501.0900, M100.2200, L7000.1800 #### [facility] Laboratory [address] [place], [address] Sodium [Moles/Vol] 135 mmol/L Normal 133-145 [facility] Comment on above: Performed By: #### L 501.0900, M100.2200, L7000.1800 #### [facility] Laboratory [address] [place], [address] T PROT 6.7 g/dL Normal 5.9-8.4 [facility] Comment on above: Result Comment: AMENDED REPORT 12/27/24 1342 T PROT previously reported as: 6.7 g/dL Performed By: #### L 501.0900, M100.2200, L7000.1800 #### [facility] Laboratory [address] [place], [address] Urea nitrogen [Mass/Vol] 5 mg/dL Normal 4-19 [facility] Comment on above: Performed By: #### L 501.0900, M100.2200, L7000.1800 #### [facility] Laboratory [address] [place], [place], [id number] Eosinophil percentageOrdered By: Lyssa Aguila on 12-27-2024 Eosinophils/100 WBC (Bld) 0.9 % 0-5 [facility] Erythrocyte distribution wid th ratioOrdered By: Lyssa Aguila on 12-27-2024 Erythrocyte distribution width (RBC) [Ratio] 12.5 % 11.6-14.6 [facility] Erythrocyte distribution wid th standard deviationOrdered By: Lyssa Aguila on 12-27-2024 Erythrocyte distribution width (RBC) [Ratio] 40.3 fl 35.1-43.9 [facility] Glomerular filtration rate ( GFR) estimation/1.73 sq m using serum, plasma, or whole bOrdered By: Lyssa Aguila on 12-27-2024 GFR/1.73 sq M.predicted among non-blacks MDRD (S/P/Bld) [Vol rate/Area] 118 mL/min/{1.73_m2} >60 [facility] Comment on above: mL/min/1.73m2 CKD-EP I Creatinine Equation (2020) HIVon 12-27-2024 HIV Non-Reactive Normal Nonreactive [facility] Comment on above: Result Comment: Non- Reactive Reactive Repeatedly reactive samples must be confirmed according to CDC recommended confirmatory algorithms. The subresults for either HIVAG or AHIV can be used as an aid in the selection of the confirmation algorithm for reactive samples. Send out specimens with Reactive results to [facility] for confirmation. Order the HIV antibody detection and differentiation: #[id number] Performed By: #### L 501.0900, M100.2200, L7000.1800 #### [facility] Laboratory [address] [place], [address] Hematocrit Auto (Bld) [Volum e fraction]Ordered By: Lyssa Augila on 12-27-2024 Hematocrit (Bld) [Volume fraction] 41.4 % 37-47 [facility] Hemoglobin A1con 12-27-2024 HbA1c (Bld) [Mass fraction] 5.1 % Normal <=5.6 [facility] Comment on above: Result Comment: Norm al < 5.7 % Prediabetic 5.7 - 6.4 % Diabetic >or= 6.5 % Please note range changes. Performed By: #### L 501.0900, M100.2200, L7000.1800 #### [facility] [address] [facility] [place], [address] Hemoglobin A1c percentageOrd ered By: Lyssa Aguila on 12-27-2024 HbA1c (Bld) [Mass fraction] 5.1 % <5.7 [facility] Comment on above: Normal < 5.7 % Predi abetic 5.7 - 6.4 % Diabetic >or= 6.5 % Please note range changes. Hemoglobin measurementOrdere d By: Lyssa Aguila on 12-27-2024 Hemoglobin (Bld) [Mass/Vol] 13.9 g/dL 12.0-15.0 [facility] Hepatitis C Antibodyon 12-27 Hepatitis C Ab Non-Reactive Normal Nonreactive [facility] Comment on above: Result Comment: Reac tive: Presumptive evidence of antibodies to HCV. Follow CDC recommendations for supplemental testing. Non-Reactive: Antibodies to HCV were not detected; does not exclude the possibility of exposure to HCV Reactive Results are presumptive evidence of antibodies to HCV. Follow CDC recommendations for supplemental testing. Order confirmation testing: HCV Quant by PCR testing - HCVPCR #[id number] Non Reactive: < 0.8 Equivocal: >/= 0.8 to < 1.0 Reactive: >/= 1.0 The CDC requires that a reactive/equivocal HCV antibody result be sent out for confirmation. HCV Quant by PCR testing. Performed By: #### L 501.0900, M100.2200, L7000.1800 #### [facility] Laboratory [address] [place], [address] Immature granulocytes/100 WB C Auto (Bld)Ordered By: Lyssa Aguila on 12-27-2024 Immature granulocytes/100 WBC (Bld) 0.500 % 0.0-0.9 [facility] Comment on above: IG% - Immature Granu locytes (promyelocytes, myelocytes and metamyelocytes) > 1% indicates that a LEFT SHIFT is Present. L3890.6102on 12-27-2024 HEP B Surf Ag Non-Reactive Normal Nonreactive [facility] Comment on above: Result Comment: Reac tive: Presumptive evidence of HBV. Repeatedly reactive samples must be confirmed using a neutralization test (Elecsys HBsAg Confirmatory Test) Non-Reactive: HBsAg not detected; does not exclude the possibility of exposure to HBV Performed By: #### L 501.0900, M100.2200, L7000.1800 #### [facility] [address] [place], [address] L509.4006on 12-27-2024 Rubella IgG REAC Normal Nonreactive [facility] Comment on above: Result Comment: Anti body Result: Interpretation Non-Reactive: Non-Immune Reactive: Immune The following results were obtained with the Elecsys Rubella IgG assay. Results from assays of other manufacturers cannot be used interchangeably. Performed By: #### L 501.0900, M100.2200, L7000.1800 #### [facility] [address] [place], [place], [address] Laboratory - Chemistry and C hemistry - challengeOrdered By: Lyssa Aguila on 12-27-2024 AST [Catalytic activity/Vol] 18 U/L <32 [facility] Laboratory - Chemistry and C hemistry - challengeOrdered By: Manda Aguirre on 12-27-2024 Bilirubin Ql (U) Negative [facility] Glucose Ql (U) Negative [facility] Ketones Ql (U) Negative [facility] pH (U) 6.5 [pH] [facility] Specific gravity (U) [Rel density] 1.010 [facility] Urobilinogen (U) [Mass/Vol] Negative [facility] Laboratory - Hematology and Cell countsOrdered By: Manda Aguirre on 12-27-2024 Hemoglobin Ql (U) Negative [facility] Laboratory - Microbiology an d Antimicrobial susceptibilityOrdered By: Lyssa Aguila on 12-27-2024 HBV surface Ag Ql (S) Non-Reactive Nonreactive [facility] Comment on above: Reactive: Presumptiv e evidence of HBV. Repeatedly reactive samples must be confirmed using a neutralization test (Elecsys HBsAg Confirmatory Test)Non-Reactive: HBsAg not detected; does not exclude the possibility of exposure to HBV Laboratory - Specimen inform ationOrdered By: Manda Aguirre on 12-27-2024 Clarity (U) Clear [facility] Color (U) YELLOW [facility] Laboratory - UrinalysisOrder ed By: Manda Aguirre on 12-27-2024 Nitrite Ql (U) Negative [facility] Protein Ql (U) Negative [facility] MCV (mean corpuscular volume ) determinationOrdered By: Lyssa Aguila on 12-27-2024 MCV (RBC) [Entitic vol] 87.3 fL 81-99 [facility] Mean corpuscular hemoglobin (MCH) determinationOrdered By: Lyssa Aguila on 12-27-2024 MCH (RBC) [Entitic mass] 29.3 pg 27.0-32.0 [facility] Mean corpuscular hemoglobin concentration (MCHC) determinationOrdered By: Lyssa Aguila on 12-27-2024 MCHC (RBC) [Mass/Vol] 33.6 g/dL 32-36 [facility] Mean platelet volume determi nationOrdered By: Lyssa Aguila on 12-27-2024 Platelet mean volume (Bld) [Entitic vol] 10.2 fL 6.2-12.0 [facility] Monocyte percentageOrdered B y: Lyssa Aguila on 12-27-2024 Monocytes/100 WBC (Bld) 6.1 % 0-10 [facility] NATERAon 12-27-2024 NATURA SEE SCANNED REPORT Normal [facility] Comment on above: Performed By: #### L 500.4050, L100.0100, L501.9985, L3890.6102, L3890.6006, L509.4006, L3890.6301, L501.9520, BTS, L509.8002, L900.0098 #### [facility] Laboratory [address] [place], [place], [id number] Neutrophil percentageOrdered By: Lyssa Aguila on 12-27-2024 Neutrophils/100 WBC (Bld) 72.9 % High 47-70 [facility] No Panel InformationOrdered By: Lyssa Aguila on 12-27-2024 HIV (1&2) Antibody Non-Reactive Nonreactive [facility] Comment on above: Non-ReactiveReactive Repeatedly reactive samples must be confirmed according to CDC recommended confirmatory algorithms. The subresults for either HIVAG or AHIV can be used as an aid in the selection of the confirmation algorithm for reactive samples.Send out specimens with Reactive results to [facility] for confirmation.Order the HIV antibody detection and differentiation: #[id number] No Panel InformationOrdered By: Manda Aguirre on 12-27-2024 Urine Leukocytes Positive [facility] Urine Non-Hemolyzed Blood Negative [facility] Nucleated red blood cell per centageOrdered By: Lyssa Aguila on 12-27-2024 Nucleated RBC/100 WBC (Bld) [Ratio] 0 % 0-5 [facility] [employer] Office Visit Reporton 12-27-2024 [employer] Office Visit Report [facility] [address], [address] [place] [address] OFFICE VISIT Date of Service: 12/27/24 MR#: [id number] Acct: [id number] Name: DEMARCUS ABAD Rep #: [id number] : 1990 Provider: LUCILA arriola Age/Sex: 34/F Location[place] [facility] Status: Signed Intake Vital Signs 08/23/24 15:14 11/24/24 12:59 12/27/24 09:51 12/27/24 09:51 Height 5 ft 2 in 5 ft 2 in 5 ft 2 in 5 ft 2 in Weight: 168 lb 8 oz 166 lb BMI 30.8 30.3 BP 108/74 115/73 Intake Visit Reasons: 12 wks OB Title Specialist Required: No Is patient in pain?: No Allergies Penicillins Allergy (Unknown, Verified 12/27/24 09:51) Unknown Medications ???Medication ???Instructions ???Recorded ???Confirmed ???Type ferrous sulfate 325 mg (65 mg 325 mg PO DAILY 09/05/23 12/27/24 History iron) tablet (Feosol) multivit-min no.71-iron fum 28 cap PO 11/12/24 12/27/24 History mg-folate no.1 1 mg-dha 300 mg capsule (PNV-Cathay) nitrofurantoin 100 mg PO BID 7 days #14 caps 12/0612/27/24 Rx monohydrate/macrocry stals 100 mg capsule (Macrobid) Last Menstrual Period: 09/27/24 Zika: Zika virus screening: Negative : No PFSH PFSH Medical History Hx of varicose veins of lower extremity Depression Nodular goiter HPV (human papilloma virus) infection Thyroid disorder Pre-eclampsia Abnormal glucose Anemia Surgical History History of bunionectomy of right great toe Mertens teeth extracted History of colposcopy Family History Mother Hypertension Father Diabetes Aunt Thyroid disorder Maternal- unknown type Social History adopted: No household members: spouse and children housing: house number of children: 2 current occupational status: unemployed current occupation: [employer] pets and animals: Yes (no litter [...] physical activity do you participate in: none [place]/advent: [employer] seatbelt use: always do you feel safe at home: Yes 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 Date Name GA/Weeks Outcome Route Bth Weight Gen Labor Lgth Anesthesia Del Locatn Provider FOB Unknown 08/2024 6 spontaneous 04/30/08 Shlomo 36 live - 6# Male epidural [facility] Taye 08/08/21 Emalie 36 live - 6lbs 14oz Female epidural [facility] [place] Delivery Date: 04/30/08 Last Updated by: Manda Aguirre MACHINE LEARNING INTERN, MACHINE LEARNING INTERN-C Induced to preeclampsia, teen Delivery Date: 08/08/21 [...] CRL c (more content not included)... Normal [facility] Platelet countOrdered By: Miko Aguila on 12-27-2024 Platelets (Bld) [#/Vol] 236 10*3/uL 150-450 [facility] Potassium measurement (mass/ volume)Ordered By: Lyssa Aguila on 12-27-2024 Potassium (Unsp spec) [Mass/Vol] 3.9 mmol/L 3.3-5.1 [facility] Comment on above: Previous reported re sult: 4.0 mmol/LEdited by: ALEXANDER on 12/27/24:1342 AMENDED REPORT 12/27/24 1342 K previously reported as: 4.0 mmol/L RBC Auto (Bld) [#/Vol]Ordere d By: Lyssa Aguila on 12-27-2024 RBC (Bld) [#/Vol] 4.74 10*6/uL 4.2-5.4 [facility] Serum creatinine measurement (mass/volume)Ordered By: Lyssa Aguila on 12-27-2024 Creatinine [Mass/Vol] 0.62 mg/dL Low 0.70-1.20 [facility] Comment on above: Previous reported re sult: 0.65 mg/dLEdited by: ALEXANDER on 12/27/24:1342 AMENDED REPORT 12/27/24 1342 CREAT,SERUM previously reported as: 0.65 L mg/dL Serum globulin measurementOr dered By: Lyssa Aguila on 12-27-2024 Globulin (S) [Mass/Vol] 3.2 g/dL 2.2-4.2 [facility] Comment on above: Previous reported re sult: 2.6 g/dLEdited by: ALEXANDER on 12/27/24:1342 AMENDED REPORT 12/27/24 1342 GLOB previously reported as: 2.6 g/dL Serum glucose measurement (m ass/volume)Ordered By: Lyssa Aguila on 12-27-2024 Glucose [Mass/Vol] 72 mg/dL 70-99 [facility] Comment on above: Previous reported re sult: 74 mg/dLEdited by: ALEXANDER on 12/27/24:1342 AMENDED REPORT 12/27/24 1342 GLU previously reported as: 74 mg/dL Serum or plasma alanine rose otransferase (ALT) measurementOrdered By: Lyssa Aguila on 12-27-2024 ALT [Catalytic activity/Vol] 16 U/L <35 [facility] Comment on above: Previous reported re sult: 15 U/LEdited by: NADEEMS on 12/27/24:1342 AMENDED REPORT 12/27/24 134 ALT previously reported as: 15 U/L Serum or plasma albumin david urement (mass/volume)Ordered By: Lyssa Aguila on 12-27-2024 Albumin [Mass/Vol] 3.8 g/dL 3.5-5.0 [facility] Comment on above: Previous reported re sult: 4.1 g/dLEdited by: ALEXANDER on 12/27/24:1342 AMENDED REPORT 12/27/24 1342 ALB previously reported as: 4.1 g/dL Serum or plasma albumin/glob ulin mass ratioOrdered By: Lyssa Aguila on 12-27-2024 Albumin/Globulin [Mass ratio] 1.2 {ratio} 0.9-2.4 [facility] Comment on above: Previous reported re sult: 1.5 RATIOEdited by: ALEXANDER on 12/27/24:1342 AMENDED REPORT 12/27/24 1342 A/G previously reported as: 1.5 RATIO Serum or plasma alkaline brayan sphatase measurementOrdered By: Lyssa Aguila on 12-27-2024 ALP [Catalytic activity/Vol] 58 U/L 35-104 [facility] Comment on above: Previous reported re sult: 61 U/LEdited by: ALEXANDER on 12/27/24:1342 AMENDED REPORT 12/27/24 134 ALK P previously reported as: 61 U/L Serum or plasma calcium david urement (mass/volume)Ordered By: Lyssa Aguila on 12-27-2024 Calcium [Mass/Vol] 9.1 mg/dL 7.6-11.0 [facility] Comment on above: Previous reported re sult: 9.4 mg/dLEdited by: AUTOINS on 12/27/24:1342 AMENDED REPORT 12/27/241341 CA previously reported as: 9.4 mg/dL Serum or plasma urea nitroge n measurement (mass/volume)Ordered By: Lyssa Aguila on 12-27-2024 Urea nitrogen [Mass/Vol] 5 mg/dL 4-19 [facility] Sodium levelOrdered By: Yuliana Aguila on 12-27-2024 Sodium [Moles/Vol] 135 mmol/L 133-145 [facility] Syphilis Antibodieson 2024 Syphilis Abs Non-Reactive Normal Nonreactive [facility] Comment on above: Performed By: #### L 501.0900, M100.2200, L7000.1800 #### [facility] [address], [place], [id number] TSH DL <= 0.005 mIU/L QnOrde red By: Lyssa Aguila on 12-27-2024 TSH Qn 0.026 uIU/mL Low 0.300-4.200 [facility] Thyroid Stim Hormone (TSH)on 12-27-2024 TSH 0.026 uIU/mL Low 0.300-4.200 [facility] Comment on above: Performed By: #### L 501.0900, M100.2200, L7000.1800 #### [facility] [address] [place], [place], [id number] Total proteinOrdered By: Jose Aguila on 12-27-2024 Protein [Mass/Vol] 7.0 g/dL 5.9-8.4 [facility] Comment on above: Previous reported re sult: 6.7 g/dLEdited by: AUTOINS on 12/27/24:1342 AMENDED REPORT 12/27/241341 T PROT previously reported as: 6.7 g/dL Type AND Screenon 12-27-2024 Ab SCREEN GEL Negative Normal [facility] Comment on above: Order Comment: PN Performed By: #### L 501.0900, M100.2200, L7000.1800 #### [facility] Laboratory [address] [place], [address] Urine cultureOrdered By: Nishant Aguirre on 12-27-2024 Bacteria identified Cx Nom (U) Culture exhibits no growth. [facility] White blood cell (WBC) count Ordered By: Lyssa Aguila on 12-27-2024 WBC (Bld) [#/Vol] 7.8 10*3/uL 4.4-11.0 [facility] Chlamydia/GC GEETA aptimaon CHLAMY,NUC ACID Negative Normal Negative [facility] Comment on above: Performed By: #### L 501.0900, M100.2200, L7000.1800 #### [facility] Laboratory [address] [place], [address] GC BY NUC ACID Negative Normal Negative [facility] Comment on above: Result Comment: Perf ormed at: =G - [facility] [address] [id number] Slip Cover Operator: Patrizia De La Torre MD, Phone: [phone] Performed By: #### L 501.0900, M100.2200, L7000.1800 #### [facility] [address] [place], [address] Protein+Creatinine Ratio,Uri neon 11-25-2024 PROT:CRE RATIO 51 mg/g CRE Normal 0-200 [facility] Comment on above: Performed By: #### L 501.0900, M100.2200, L7000.1800 #### [facility] [address] [place], [address] Protein (U) [Mass/Vol] 14.1 mg/dL High 0.0-12.0 [facility] Comment on above: Performed By: #### L 501.0900, M100.2200, L7000.1800 #### [facility] [address] [place], [address] UR CREAT 277.00 mg/dL High 28.00-217.00 [facility] Comment on above: Performed By: #### L 501.0900, M100.2200, L7000.1800 #### [facility] Laboratory [address] [place], [address] Urine Cultureon 11-25-2024 URC Culture exhibits no growth. Normal [facility] Comment on above: Performed By: #### L 501.0900, M100.2200, L7000.1800 #### [facility] Laboratory [address] [place], [place], [id number] Chlamydia trachomatis rRNA d etection by probe and target amplification methodOrdered By: Lyssa Aguila on 11-24-2024 C. trachomatis rRNA GEETA+probe Ql (Unsp spec) Negative Negative [facility] Neisseria gonorrhoeae nuclei c acid detection by amplified probe techniqueOrdered By: Lyssa Aguila on 11-24-2024 N. gonorrhoeae DNA GEETA+probe Ql (Unsp spec) Negative Negative [facility] Comment on above: Performed at: =[address] [id number] Director: Patrizia De La Torre MD, Phone: [phone] [employer] Office Visit Reporton 11-24-2024 [employer] Office Visit Report [facility] [address], [address] [place] [address] OFFICE VISIT Date of Service: 11/24/24 MR#: [id number] Acct: [id number] Name: DEMARCUS ABAD Rep #: [id number] : 1990 Provider: SULLY Boudreaux ams Age/Sex: 34/F Location[place] [facility] [place] Status: Signed Intake Vital Signs 08/23/24 15:14 11/24/24 12:59 Height 5 ft 2 in 5 ft 2 in Weight: 166 lb 168 lb 8 oz BMI 30.3 30.8 BP 119/77 108/74 Intake Visit Reasons: NOB LMP 09/27 Chief Complaint: New OB Title Specialist Required: No Is patient in pain?: No Allergies Penicillins Allergy (Unknown, Verified 11/24/24 12:57) Unknown Medications ???Medication ???Instructions ???Recorded ???Confirmed ???Type ferrous sulfate 325 mg (65 mg 325 mg PO DAILY 09/05/23 11/24/24 History iron) tablet (Feosol) multivit-min no.71-iron fum 28 cap PO 11/12/24 11/24/24 History mg-folate no.1 1 mg-dha 300 mg capsule (PNV-Cathay) Last Menstrual Period: 09/27/24 : Yes PFSH PFSH Medical History Hx of varicose veins of lower extremity Depression Nodular goiter HPV (human papilloma virus) infection Thyroid disorder Pre-eclampsia Abnormal glucose Anemia Surgical History History of bunionectomy of right great toe Mertens teeth extracted History of colposcopy Family History Mother Hypertension Father Diabetes Aunt Thyroid disorder Maternal- unknown type Social History adopted: No household members: spouse and children housing: house number of children: 2 service: No current occupational status: unemployed current occupation: [employer] pets and animals: Yes (no litter [...] physical activity do you participate in: none [place]/advent: [employer] seatbelt use: always do you feel safe [...] 36 live - 6lbs 14oz Female epidural [facility] [place] Delivery Date: 04/30/08 Last Updated by: Manda Aguirre MACHINE LEARNING INTERN, MACHINE LEARNING INTERN-C Induced to preeclampsia, teen Delivery Date: 08/08/21 [...] 09/27/24 Repo (more content not included)... Normal [facility] Random urine creatinine david urement (mass/volume)Ordered By: Lyssa Aguila on 11-24-2024 Creatinine Unsp time (U) [Mass/Vol] 277.00 mg/dL High 28.00-217.00 [facility] Urine cultureOrdered By: Jose Aguila on 11-24-2024 Bacteria identified Cx Nom (U) Culture exhibits no growth. [facility] Urine protein measurement (m ass/volume)Ordered By: Lyssa Aguila on 11-24-2024 Protein (U) [Mass/Vol] 14.1 mg/dL High 0.0-12.0 [facility] Urine protein/creatinine mas s ratioOrdered By: Lyssa Aguila on 11-24-2024 Protein/Creatinine (U) [Mass ratio] 51 mg/g CRE 0-200 [facility] Serum human chorionic gonado tropin detection for pregnancyOrdered By: Lyssa Aguila on 08-25-2024 HCG ( test) Ql 10 mIU/mL High <4 [facility] Comment on above: hCG levels with Gest ational AgeGestational Age hCG mIU/mL (IU/L)0.2 - 1 week 5 - 501-2 weeks 50 - 5002-3 weeks 100 - 72320-6 weeks 500 - 435160-1 weeks 1000 - 374505-6 weeks 69848 - 100,0006-8 weeks 10999 - 200,0002-3 months 22044 - 100,000 hCG Titer Quant., Serumon HCG QUANT. 10 mIU/mL High 1-3 [facility] Comment on above: Order Comment: PT DI D NOT WANT TO DO DR GALLEGOS ORDERS THAT ARE INTERNAL. Result Comment: hCG levels with Gestational Age Gestational Age hCG mIU/mL (IU/L) 0.2 - 1 week 5 - 50 1-2 weeks 50 - 500 2-3 weeks 100 - 5000 3-4 weeks 500 - 37695 4-5 weeks 1000 - 38377 5-6 weeks 46355 - 100,000 6-8 weeks 28484 - 200,000 2-3 months 70820 - 100,000 Performed By: #### L 501.0900, M100.2200, L7000.1800 #### [facility] [address] [place], [address] [employer] Office Visit Reporton 08-23-2024 [employer] Office Visit Report [facility] [address], [address] [place] [address] OFFICE VISIT Date of Service: 08/23/24 MR#: [id number] Acct: [id number] Name: DEMARCUS ABAD Rep #: [id number] : 1990 Provider: SULLY Boudreaux ams Age/Sex: 34/F Location: [facility] [place] Status: Signed Intake Vital Signs 08/23/24 09:05 [...] PO 08/23/24 08/23/24 History capsule ( DHA) [facility] Medical History Abnormal glucose Anemia HPV [...] Shlomo 36 live - 6# Male epidural [facility] Taye 08/08/21 Emalie 36 live - 6lbs 14oz Female [facility] Vand e Velde Delivery Date: 04/30/08 Last Updated by: Manda Aguirre MACHINE LEARNING INTERN, MACHINE LEARNING INTERN-C Induced to preeclampsia, teen Delivery Date: 08/08/21 [...] Date __ (more content not included)... Normal [facility] Serum human chorionic gonado tropin detection for pregnancyOrdered By: Lyssa Aguila on 08-23-2024 HCG ( test) Ql 28 mIU/mL High <4 [facility] Comment on above: hCG levels with Gest ational AgeGestational Age hCG mIU/mL (IU/L)0.2 - 1 week 5 - 501-2 weeks 50 - 5002-3 weeks 100 - 48843-8 weeks 500 - 689931-6 weeks 1000 - 411348-7 weeks 53447 - 100,0006-8 weeks 96709 - 200,0002-3 months 61410 - 100,000 hCG Titer Quant., Serumon HCG QUANT. 28 mIU/mL High 1-3 [facility] Comment on above: Order Comment: viabi lity Result Comment: hCG levels with Gestational Age Gestational Age hCG mIU/mL (IU/L) 0.2 - 1 week 5 - 50 1-2 weeks 50 - 500 2-3 weeks 100 - 5000 3-4 weeks 500 - 85143 4-5 weeks 1000 - 37478 5-6 weeks 71350 - 100,000 6-8 weeks 36028 - 200,000 2-3 months 33329 - 100,000 Performed By: #### L 700.8000 #### [facility] [address] [place], [place], [id number] Laboratory - Chemistry and C hemistry - challengeOrdered By: Denis Galdamez on 03-11-2023 Free T4 [Mass/Vol] 0.96 ng/dL 0.76-1.46 [facility] No Panel InformationOrdered By: Denis Galdamez on 03-11-2023 Free Triiodothyronine (T3) pg/dL 3.2 pg/mL 2.18-3.98 [facility] Thyroid Stimulating Hormone (TSH) 0.41 uIU/mL 0.358-3.74 [facility] Serum or plasma thyroperoxid ase antibody assay (units/volume)Ordered By: Denis Galdamez on 03-11-2023 TPO Ab Qn 10 [IU]/mL 0-34 [facility] Comment on above: Performed at: [address] [id number] Director: Robert Peters PhD, Phone: [phone] PREGUon 09-19-2022 HCG ( test) Ql (U) Negative Normal [facility] ([place]) Comment on above: Performed By: #### P REGU #### [place] [address] [address] test (u) int Not detected Invalid Interpretation Code [facility] ([place] Comment on above: Performed By: #### P REGU #### [place] [address] [address] Laboratory - Chemistry and C hemistry - challengeon 03-15-2022 Free T4 [Mass/Vol] 0.99 ng/dL 0.76-1.46 [facility] Work Phone: No Panel Informationon 03-15 Free Triiodothyronine (T3) pg/dL 3.3 pg/mL 2.18-3.98 [facility] Work Phone: Thyroid Stimulating Hormone (TSH) 0.34 uIU/mL 0.358-3.74 [facility] Work Phone: CNPRashida 12-27-2020 CNPN Telephone (OBGYWM) DEMARCUS TAMEZ ([id number]) 1990 F Date Time Provider Department 12/27/20 [...] to call patient. Unable to leave message. [employer] message sent. Lorenza Zheng RN Allergies As of Date: 12/27/2020 Noted Allergy Reaction BUPROPION 05/16/2016 5 - Intolerance Comments: headache PENICILLINS 05/27/2005 Date Reviewed: 10/30/2020 Reviewed by: Yanique Rodriguez LPN - Fully Assessed Reason for Visit: Early OB Cramping [Other] Primary Visit Diagnosis:Pelvic pain during [O26.899, R10.2] Order(s):HCG QUANTITATIVE [SQHCGQT] Order #: [id number] STANDING Prescriptions as of 12/27/2020 Sig: -1 ORAL Take by mouth. Problem List As Of Date 12/27/2020 Noted Resolved Thyroid goiter [E04.9] 12/30/2014 Anemia [D64.9] 01/16/2015 08/16/2016 Attention and concentration deficit [R41.840] 04/19/2015 Iron deficiency anemia secondary to inadequate *04/19/2015 Encounter Status:Closed by [facility] DEM[facility]AME[facility] ([id number]) 1990 F Date Time Provider Department 11/01/20 [...] [D64.9] Order(s):CBC + DIFF [SQCBCDIF] Order #: [id number] FUTURE IRON + TIBC [SQIRON] Order #: [id number] FUTURE Prescriptions as of 11/01/2020 Sig: -1 ORAL Take by mouth. Problem List As Of Date 11/01/2020 Noted Resolved Thyroid goiter [E04.9] 12/30/2014 Anemia [D64.9] 01/16/2015 08/16/2016 Attention and concentration deficit [R41.840] 04/19/2015 Iron deficiency anemia secondary to inadequate *04/19/2015 Encounter Status:Closed by YANIQUE RODRIGUEZ LPN on 11/01/20 Normal [facility] CBC and Differentialon 10-31 Abs Baso 0.03 k/uL Normal <0.11 [facility] Comment on above: Performed By: #### C BCDIF, CMP #### [place] [address] [place], [place] [address] Abs Kimball 0.50 k/uL Normal <0.87 [facility] Comment on above: Performed By: #### C BCDIF, CMP #### [address] [place], [place] [id number] Abs Neut 2.90 k/uL Normal 1.45-7.50 [facility] Comment on above: Performed By: #### C BCDIF, CMP #### [facility] [address] [place], [place] [address] Absolute nRBC <0.01 Normal <0.01 [facility] Comment on above: Performed By: #### C BCDIF, CMP #### [facility] [address] [place], [place] [address] Basophils/100 WBC (Bld) 0.5 % Normal C [facility] Comment on above: Performed By: #### C BCDIF, CMP #### [address] [place] [phone] DTYPE Auto Diff Normal [facility] Comment on above: Performed By: #### C BCDIF, CMP #### [place] [phone] Eosinophils (Bld) [#/Vol] 0.12 10*3/uL Normal <0.46 [facility] Comment on above: Performed By: #### C BCDIF, CMP #### [place] [phone] Eosinophils/100 WBC (Bld) 1.9 % Normal [facility] Comment on above: Performed By: #### C BCDIF, CMP #### [place] [phone] Erythrocyte distribution width (RBC) [Ratio] 14.6 % Normal 11.5-15.0 [facility] Comment on above: Performed By: #### C BCDIF, CMP #### [place] [phone] Hematocrit (Bld) [Volume fraction] 37.2 % Normal 36.0-46.0 [facility] Comment on above: Performed By: #### C BCDIF, CMP #### [address] [place] [place] [phone] Hemoglobin (Bld) [Mass/Vol] 11.1 g/dL Low 11.5-15.5 [facility] Comment on above: Performed By: #### C BCDIF, CMP #### [address] [place] [place] [phone] Lymphocytes (Bld) [#/Vol] 2.78 10*3/uL Normal 1.00-4.00 [facility] Comment on above: Performed By: #### C BCDIF, CMP #### [facility] [address] [place], [place] [address] Lymphocytes/100 WBC (Bld) 43.8 % Normal [facility] Comment on above: Performed By: #### C BCDIF, CMP #### [facility] [address] [place], [place] [address] MCH 24.9 pG Low 26.0-34.0 [facility] Comment on above: Performed By: #### C BCDIF, CMP #### [address] [place], [place] [address] MCHC (RBC) [Mass/Vol] 29.8 g/dL Low 30.5-36.0 [facility] Comment on above: Performed By: #### C BCDIF, CMP #### [address] [place] [address] MCV (RBC) [Entitic vol] 83.4 fL Normal 80.0-100.0 [facility] Comment on above: Performed By: #### C BCDIF, CMP #### [address] [place], [place] [address] Monocytes/100 WBC (Bld) 7.9 % Normal [facility] Comment on above: Performed By: #### C BCDIF, CMP #### [address] [place], [place] [address] Neutrophils/100 WBC (Bld) 45.9 % Normal [facility] Comment on above: Performed By: #### C BCDIF, CMP #### [address] [place], [place] [address] NRBCs 0.0 /100 WBC Normal 0 [facility] Comment on above: Performed By: #### C BCDIF, CMP #### [address] [place], [place] [address] Platelet mean volume (Bld) [Entitic vol] 10.3 fL Normal 9.0-12.7 [facility] Comment on above: Performed By: #### C BCDIF, CMP #### [facility] [address] [place] [address] Platelets (Bld) [#/Vol] 304 10*3/uL Normal 150-400 [facility] Comment on above: Performed By: #### C BCDIF, CMP #### [facility] [address] [place] [address] RBC (Bld) [#/Vol] 4.46 10*6/uL Normal 3.90-5.[address] [facility] Comment on above: Performed By: #### C BCDIF, CMP #### [facility] [address] [place] [address] WBC (Bld) [#/Vol] 6.35 10*3/uL Normal 3.70-11.[address] [facility] Comment on above: Performed By: #### C BCDIF, CMP #### [place] [address] [place] [address] Jennifer 10-31-2020 [facility] DEM[facility]AME[facility] ([id number]) 1990 F Date Time Provider Department 10/31/20 [facility] During your visit today, we recorded [...] by ANMOL ARGUELLO MA on 10/31/20 Normal [facility] Comp Metabolic Panelon 10-31 Albumin [Mass/Vol] 4.3 g/dL Normal 3.9-4.9 [facility] Comment on above: Performed By: #### C BCDIF, CMP #### [facility] [address] [place], [place] [address] ALP [Catalytic activity/Vol] 57 U/L Normal 34-123 [facility] Comment on above: Performed By: #### C BCDIF, CMP #### [facility] [address] [place], [place] [address] ALT [Catalytic activity/Vol] 13 U/L Normal 7-38 [facility] Comment on above: Performed By: #### C BCDIF, CMP #### [facility] [address] [place], [place] [address] Anion gap [Moles/Vol] 12 mmol/L Normal 9-18 [facility] Comment on above: Performed By: #### C BCDIF, CMP #### [facility] [address] [place], [place] [address] AST [Catalytic activity/Vol] 28 U/L Normal 13-35 [facility] Comment on above: Performed By: #### C BCDIF, CMP #### [facility] [address] [place], [place] [address] Bilirubin [Mass/Vol] mg/dL Low 0.2-1.3 [facility] Comment on above: Performed By: #### C BCDIF, CMP #### [facility] [address] [place] [phone] Calcium [Mass/Vol] 9.3 mg/dL Normal 8.5-10.2 [facility] Comment on above: Performed By: #### C BCDIF, CMP #### [address] [address] [place] [address] Chloride [Moles/Vol] 105 mmol/L Normal 97-105 [facility] Comment on above: Performed By: #### C BCDIF, CMP #### [place] [address] CO2 [Moles/Vol] 23 mmol/L Normal 22-30 [facility] Comment on above: Performed By: #### C BCDIF, CMP #### [place] [address] [place] [address] Creatinine [Mass/Vol] 0.82 mg/dL Normal 0.58-0.96 [facility] Comment on above: Performed By: #### C BCDIF, CMP #### [address] [address] [place] [address] eGFR- Amer. >60 Normal [facility] Comment on above: Performed By: #### C BCDIF, CMP #### [place] [address] eGFR-All Other Races >60 Normal [facility] Comment on above: Result Comment: eGFR [...] Performed By: #### C ERICA CMP #### [facility] [address] [place], [place] [address] Glucose [Mass/Vol] 76 mg/dL Normal 74-99 [facility] Comment on above: Result Comment: The [place] [employer] (ADA) provides guidance for cutoff [...] Standards of Medical Care in Diabetes 2016, [place] [employer]. Diabetes Care. 2016.39(Suppl 1). Performed By: #### C ERICA CMP #### [facility] [address] [place], [place] [address] Potassium [Moles/Vol] 3.9 mmol/L Normal 3.7-5.1 [facility] Comment on above: Performed By: #### C BCNAYAN, CMP #### [facility] [address] [place], [place] [address] Protein [Mass/Vol] 7.0 g/dL Normal 6.3-8.0 [facility] Comment on above: Performed By: #### C BCNAYAN, CMP #### [facility] [address] [place], [place] [address] Sodium [Moles/Vol] 140 mmol/L Normal 136-144 [facility] Comment on above: Performed By: #### C MARYCHUY MALDONADO #### [facility] [address] [place], [place] [address] Urea nitrogen [Mass/Vol] 11 mg/dL Normal 7-21 [facility] Comment on above: Performed By: #### C BCDIF, CMP #### [facility] [address] [place], [place] [id number] D dimeron 10-31-2020 D dimer Test sent to [facility]. Normal <500 [facility] Comment on above: Result Comment: Acco unt Credited MARGARETE CNOVon 10-30-2020 CNOV Office Visit (FAMPWS) DEMARCUS TAMEZ ([id number]) 1990 F Date Time Provider Department 10/30/20 [...] Thyroid nodu (more content not included)... Normal [facility] CNOVon 09-11-2020 CNOV Office Visit (UCWSTR) DEMARCUS TAMEZ ([id number]) 1990 F Date Time Provider Department 09/11/20 8:45 AM JACEY GALDAEMZ) [facility] During your visit today, we [...] by JACEY GALDAMEZ CNP on 09/11/20 Normal [facility] Vital Signs Date Time Vital Sign Value Performing Clinician Chetan oswald 04-28-2025 10:42-0400 Body height 157.[address] Beatriz Escobar MD Work Phone: [facility] 04-28-2025 10:42-0400 Body mass index (BMI) [Ratio] 34.2 kg/m2 Dr. Beatriz Escobar MD Work Phone: [facility] 04-28-2025 10:42-0400 Body weight 84.[address] Beatriz Escobar MD Work Phone: [facility] 04-28-2025 10:42-0400 Diastolic blood pressure 71 mm[Hg] Dr. Beatriz Escobar MD Work Phone: [facility] 04-28-2025 10:42-0400 Systolic blood pressure 114 mm[Hg] Dr. Beatriz Escobar MD Work Phone: 8(326)280-679809 [place] [address] 04-18-2025 10:56-0400 Body mass index (BMI) [Ratio] 33.5 kg/m2 Dr. Beatriz Escobar MD Work Phone: 6(835)204-632709 [place] [address] 04-18-2025 10:56-0400 Body weight 83.[address] Beatriz Escobar MD Work Phone: 2(320)317-703109 [place] [address] 04-18-2025 10:56-0400 Diastolic blood pressure 71 mm[Hg] Dr. Beatriz Escobar MD Work Phone: 2(001)367-400209 [place] [address] 04-18-2025 10:56-0400 Systolic blood pressure 106 mm[Hg] Dr. Beatriz Escobar MD Work Phone: 4(671)812-758009 [place] [address] 04-02-2025 18:41-0400 Body temperature 97.9 [degF] Dr. Beatriz Escobar MD Work Phone: 5(047)885-573109 [place] [address] 04-02-2025 18:41-0400 Diastolic blood pressure 52 mm[Hg] Dr. Beatriz Escobar MD Work Phone: 7(941)982-215109 [place] [address] 04-02-2025 18:41-0400 Heart rate 75 /min Dr. Beatriz Escobar MD Work Phone: 1(251)918-876409 [place] [address] 04-02-2025 18:41-0400 Respiratory rate 16 /min Dr. Beatriz Escobar MD Work Phone: 5(005)542-882609 [place] [address] 04-02-2025 18:41-0400 SaO2% (BldA) [Mass fraction] 96 % Dr. Beatriz Escobar MD Work Phone: 8(458)336-300609 [place] [address] 04-02-2025 18:41-0400 Systolic blood pressure 94 mm[Hg] Dr. Beatriz Escobar MD Work Phone: 9(102)140-930409 [place] [address] 04-02-2025 18:35-0400 Body height 157.[address] Beatriz Escobar MD Work Phone: 1(384)373-022309 [place] [address] 04-02-2025 18:35-0400 Body mass index (BMI) [Ratio] 33.4 kg/m2 Dr. Beatriz Escobar MD Work Phone: 9(099)955-367509 [place] [address] 04-02-2025 18:35-0400 Body weight 82.[address] Beatriz Escobar MD Work Phone: 5(944)913-842509 [place] [address] 03-22-2025 10:36-0400 Body height 157.[address] Beatriz Escobar MD Work Phone: 7(108)797-736309 [place] [address] 03-22-2025 10:32-0400 Body mass index (BMI) [Ratio] 32.5 kg/m2 Dr. Beatriz Escobar MD Work Phone: 0(507)726-796509 [place] [address] 03-22-2025 10:32-0400 Body weight 80.[address] Beatriz Escobar MD Work Phone: 9(989)697-555809 [place] [address] 03-22-2025 10:32-0400 Diastolic blood pressure 75 mm[Hg] Dr. Beatriz Escobar MD Work Phone: 1(281)017-546709 [place] [address] 03-22-2025 10:32-0400 Systolic blood pressure 111 mm[Hg] Dr. Beatriz Escobar MD Work Phone: 8(643)284-527709 [place] [address] 02-21-2025 11:01-0400 Body height 157.[address] Beatriz Escobar MD Work Phone: 6(835)521-179509 [place] [address] 02-21-2025 11:01-0400 Body mass index (BMI) [Ratio] 31.1 kg/m2 Dr. Beatriz Escobar MD Work Phone: 8(582)395-700909 [place] [address] 02-21-2025 11:01-0400 Body weight 77.[address] Beatriz Escobar MD Work Phone: 7(660)404-984509 [place] [address] 02-21-2025 11:01-0400 Diastolic blood pressure 68 mm[Hg] Dr. Beatriz Escobar MD Work Phone: 6(783)593-216209 [place] [address] 02-21-2025 11:01-0400 Systolic blood pressure 103 mm[Hg] Dr. Beatriz Escobar MD Work Phone: [facility] 01-25-2025 13:59-0400 Body height 157.[address] Beatriz Escobar MD Work Phone: [facility] 01-25-2025 13:59-0400 Body mass index (BMI) [Ratio] 30.5 kg/m2 Dr. Beatriz Escobar MD Work Phone: 2(185)587-627109 [place] [address] 01-25-2025 13:59-0400 Body weight 75.[address] Beatriz Escobar MD Work Phone: 3(183)174-280509 [place] [address] 01-25-2025 13:59-0400 Diastolic blood pressure 73 mm[Hg] Dr. Beatriz Escobar MD Work Phone: 8(302)731-298009 [place] [address] 01-25-2025 13:59-0400 Systolic blood pressure 111 mm[Hg] Dr. Beatriz Escobar MD Work Phone: 9(271)556-124109 [place] [address] 01-10-2025 13:57-0400 Body height 157.[address] Beatriz Escobar MD Work Phone: 3(557)583-385109 [place] [address] 01-10-2025 13:54-0400 Body mass index (BMI) [Ratio] 30.2 kg/m2 Dr. Beatriz Escobar MD Work Phone: [facility] 01-10-2025 13:54-0400 Body weight 75.[address] Beatriz Escobar MD Work Phone: 1(806)671-991903 [place] [address] 01-10-2025 13:54-0400 Diastolic blood pressure 68 mm[Hg] Dr. Beatriz Escobar MD Work Phone: 2(549)302-207609 [place] [address] 01-10-2025 13:54-0400 Systolic blood pressure 114 mm[Hg] Dr. Beatriz Escobar MD Work Phone: 8(395)967-455509 [place] [address] 12-30-2024 13:27-0400 Body height 157.[address] Beatriz Escobar MD Work Phone: 6(728)525-190009 [place] [address] 12-30-2024 13:27-0400 Body mass index (BMI) [Ratio] 30.5 kg/m2 Dr. Beatriz Escobar MD Work Phone: [facility] 12-30-2024 13:27-0400 Body weight 75.[address] Beatriz Escobar MD Work Phone: [facility] 12-30-2024 13:27-0400 Diastolic blood pressure 72 mm[Hg] Dr. Beatriz Escobar MD Work Phone: 0(996)305-954103 [place] [address] 12-30-2024 13:27-0400 Heart rate 71 /min Dr. Beatriz Escobar MD Work Phone: 9(184)766-836009 [place] [address] 12-30-2024 13:27-0400 SaO2% (BldA) [Mass fraction] 97 % Dr. Beatriz Escobar MD Work Phone: 1(319)707-291209 [place] [address] 12-30-2024 13:27-0400 Systolic blood pressure 107 mm[Hg] Dr. Beatriz Escobar MD Work Phone: 4(642)664-568119 [address] 12-27-2024 09:51-0400 Body height 157.[address] Beatriz Escobar MD Work Phone: 3(584)776-400609 [place] [address] 12-27-2024 09:51-0400 Body mass index (BMI) [Ratio] 30.3 kg/m2 Dr. Beatriz Escobar MD Work Phone: 0(062)499-151409 [place] [address] 12-27-2024 09:51-0400 Body weight 75.[address] Beatriz Escobar MD Work Phone: 8(859)801-189703 [place] [address] 12-27-2024 09:51-0400 Diastolic blood pressure 73 mm[Hg] Dr. Beatriz Escobar MD Work Phone: 1(048)288-600609 [place] [address] 12-27-2024 09:51-0400 Systolic blood pressure 115 mm[Hg] Dr. Beatriz Escobar MD Work Phone: 9(663)239-396209 [place] [address] 11-24-2024 12:59-0400 Body height 157.[address] Beatriz Escobar MD Work Phone: [facility] 11-24-2024 12:59-0400 Body mass index (BMI) [Ratio] 30.8 kg/m2 Dr. Beatriz Escobar MD Work Phone: [facility] 11-24-2024 12:59-0400 Body weight 76.[address] Beatriz Escobar MD Work Phone: 8(775)427-007303 [place] [address] 11-24-2024 12:59-0400 Diastolic blood pressure 74 mm[Hg] Dr. Beatriz Escobar MD Work Phone: 4(553)815-374419 [address] 11-24-2024 12:59-0400 Systolic blood pressure 108 mm[Hg] Dr. Beatriz Escobar MD Work Phone: 4(679)542-142809 [place] [address] 08-23-2024 15:14-0500 Body mass index (BMI) [Ratio] 30.3 kg/m2 Dr. Beatriz Escobar MD Work Phone: 7(032)510-233103 [place] [address] 08-23-2024 15:14-0500 Body weight 75.[address] Beatriz Escobar MD Work Phone: 2(703)221-673019 [address] 08-23-2024 15:14-0500 Diastolic blood pressure 77 mm[Hg] Dr. Beatriz Escobar MD Work Phone: 9(071)267-875803 [place] [address] 08-23-2024 15:14-0500 Systolic blood pressure 119 mm[Hg] Dr. Beatriz Escobar MD Work Phone: 1(753)904-089603 [place] [address] 10-29-2022 14:07-0400 Body height 157.[address] Antony Escobar Work Phone: 3(118)010-905119 [address] 10-29-2022 14:07-0400 Body mass index (BMI) [Ratio] 29.6 kg/m2 Dr. Antony Escobar Work Phone: 1(762)139-922203 [place] [address] 10-29-2022 14:07-0400 Body weight 73.[address] Antony Escobar Work Phone: 8(749)294-815403 [place] [address] 04-25-2023 14:07-0400 Diastolic blood pressure 72 mm[Hg] Dr. Antony Escobar Work Phone: [facility] 10-29-2022 14:07-0400 Systolic blood pressure 111 mm[Hg] Dr. Antony Escobar Work Phone: [facility] 09-06-2022 08:06-0500 Blood Pressure Location HOWARD SUPPAN DPM [facility] 09-06-2022 08:06-0500 Body height 157.5 cm HOWARD SUPPAN DPM [facility] 09-06-2022 08:06-0500 Body weight 68.2 kg HOWARD SUPPAN DPM [facility] 09-06-2022 08:06-0500 Body weight 27.49 kg/m2 HOWARD SUPPAN DPM [facility] 09-06-2022 08:06-0500 Diastolic Blood Pressure Non-Invasive 76 1 HOWARD SUPPAN DPM [facility] 09-06-2022 08:06-0500 Heart rate 73 /min HOWARD SUPPAN DPM [facility] 09-06-2022 08:06-0500 Respiratory rate 20 /min HOWARD SUPPAN DPM [facility] 09-06-2022 08:06-0500 Systolic Blood Pressure Non-Invasive 98 1 HOWARD SUPPAN DPM [facility] 07-11-2022 15:11-0500 Body mass index (BMI) [Ratio] 28.9 kg/m2 Dr. Antony Escobar Work Phone: [facility] 07-11-2022 15:11-0500 Body temperature 95.8 [degF] Dr. Antony Escobar Work Phone: [facility] 07-11-2022 15:11-0500 Body weight 71.[address] Antony Escobar Work Phone: [facility] 07-11-2022 15:11-0500 Diastolic blood pressure 73 mm[Hg] Dr. Antony Escobar Work Phone: [facility] 07-11-2022 15:11-0500 Heart rate 65 /min Dr. Antony Escobar Work Phone: [facility] 07-11-2022 15:11-0500 Respiratory rate 18 /min Dr. Antony Escobar Work Phone: [facility] 07-11-2022 15:11-0500 SaO2% (BldA) [Mass fraction] 97 % Dr. Antony Escobar Work Phone: [facility] 07-11-2022 15:11-0500 Systolic blood pressure 106 mm[Hg] Dr. Antony Escobar Work Phone: [facility] Encounters Encounter Date Encounter Type Care Provider Facility Start: 05-26-2025 ambulatory Beatriz Pro lity:[facility] Start: 05-16-2025 End: 05-16-2025 ambulatory Beatriz Escobar Facility:[facility] Start: 05-09-2025 ambulatory Carmelita Westty:[facility] Start: 05-02-2025 ambulatory Beatriz Benton lity:[facility] Start: 04-28-2025 End: 04-28-2025 ambulatory Beatriz Escobar Facility:[facility] Start: 04-26-2025 End: 04-26-2025 ambulatory Manda Westwood Facility:[facility] Start: 04-18-2025 End: 04-18-[address] Beatriz Escobar MD Work Phone: [facility] Start: 04-18-2025 End: 04-18-[address] Carmelita Weeks DO [facility] Work Phone: Start: 04-18-2025 End: 04-18-2025 ambulatory Carmelita Weeks Facility:[facility] Start: 04-03-2025 ambulatory Beatriz Benton lity:[facility] Start: 04-03-2025 Non-patient / Non-visit Dr. William knight MD -[facility] Work Phone: Start: 04-02-2025 End: 04-02-[address] Beatriz Escobar MD Work Phone: -[facility] Start: 04-02-2025 End: 04-02-[address] William Ceballos MD -[facility] Work Phone: Start: 03-22-2025 End: 03-22-2025 Patient encounter procedure Manda GAYTAN -[facility] Work Phone: Start: 03-22-2025 End: 03-22-[address] Beatriz Escobar MD Work Phone: -[facility] Start: 03-01-2025 End: 03-01-2025 ambulatory LUBBOCKPAMELA [facility] Start: 02-21-2025 End: 02-21-2025 Patient encounter procedure Lyssa Aguila CNM -[facility] Work Phone: Start: 02-21-2025 End: 02-21-[address] Beatriz Escobar MD Work Phone: -[facility] Start: 02-21-2025 End: 02-21-2025 ambulatory Beatriz Escobar Facility:[facility] Start: 02-08-2025 End: 02-08-2025 ambulatory MANDA AGUIRRE [facility] Start: 01-25-2025 End: 01-25-[address] Gaby Trimble MD -[facility] Work Phone: Start: 01-25-2025 End: 01-25-[address] Beatriz Escobar MD Work Phone: -[facility] Start: 01-17-2025 End: 01-17-[address] Beatriz Escobar MD Work Phone: -[facility] Start: 01-17-2025 End: 01-17-[address] Denis Galdamez MD -[facility] Start: 01-17-2025 End: 01-17-2025 ambulatory Denis Galdamez Facility:[facility] Start: 01-10-2025 End: 01-10-2025 Patient encounter procedure Manda Aguirre NP-C -[facility] Work Phone: Start: 01-10-2025 End: 01-10-[address] Beatriz Escobar MD Work Phone: -[facility] Start: 12-30-2024 End: 12-30-[address] Denis Galdamez MD -[facility] Work Phone: Start: 12-30-2024 End: 12-30-[address] Beatriz Escobar MD Work Phone: [facility] Work Phone: Start: 12-27-2024 End: 12-27-2024 Patient encounter procedure Manda Aguirre NP-C -[facility] Work Phone: Start: 12-27-2024 End: 12-27-[address] Beatriz Escobar MD Work Phone: [facility] Work Phone: Start: 12-27-2024 End: 12-27-2024 ambulatory Beatriz Escobar Facility:[facility] Start: 11-24-2024 End: 11-24-[address] Beatriz Escobar MD Work Phone: [facility] Work Phone: Start: 11-24-2024 End: 11-24-2024 Patient encounter procedure Lyssa Aguila CNM -[facility] Work Phone: Start: 11-24-2024 End: 11-24-2024 Patient encounter procedure Lyssa Aguila CNM -[facility] Work Phone: Start: 11-24-2024 End: 11-24-[address] Beatriz Escobar MD Work Phone: [facility] Work Phone: Start: 11-24-2024 End: 11-24-2024 ambulatory [facility] Facility:[facility] Start: 08-25-2024 End: 08-25-2024 Patient encounter procedure Lyssa Aguila CNM -[facility] Start: 08-25-2024 End: 08-25-2024 ambulatory [facility] Facility:[facility] Start: 08-23-2024 End: 08-23-2024 Patient encounter procedure Lyssa WARD -[facility] Work Phone: Start: 08-23-2024 End: 08-23-2024 ambulatory [facility] Facility:[facility] Start: 08-23-2024 End: 08-23-2024 Patient encounter procedure Lyssa Aguila CNM -Laboratory [facility] Start: 08-23-2024 End: 08-23-2024 ambulatory [place] Shawn Facility:[facility] Start: 03-11-2023 End: 03-11-2023 ambulatory [facility] Work Phone: Start: 03-11-2023 End: 03-11-2023 Patient encounter procedure [facility]-Laboratory, [facility] Start: 10-29-2022 End: 10-29-[address] Antony Escobar Work Phone: [facility] Work Phone: Start: 10-29-2022 End: 10-29-[address] Antony Escobar Work Phone: [facility]-Laboratory, Specimen Start: 10-29-2022 End: 10-29-[address] Antony Escobar Work Phone: [facility] Start: 09-19-2022 End: 09-19-2022 ambulatory HOWARD N ALAINA DPM Facility:B Start: 09-06-2022 End: 09-07-2022 ambulatory HOWARD N SUPPRADHA DPM Facility:B Start: 09-06-2022 End: 09-06-2022 Admission to [facility] HOWARD Sears KAITRADHA DPM [facility] Start: 07-11-2022 End: 07-11-[address] Antony Escobar Work Phone: [facility] Start: 03-15-2022 End: 03-15-2022 ambulatory [facility] Work Phone: Start: 03-15-2022 End: 03-15-2022 Patient encounter procedure [facility]-Laboratory, [facility] Start: 03-14-2022 End: 03-14-2022 ambulatory [facility] Work Phone: Start: 03-14-2022 End: 03-14-2022 Patient encounter procedure [facility]-Ultrasound, [facility] Procedures Date Procedure Procedure Detail Performing [...] HCV Quant by PCR testing - HCVPCR #[id number] Non Reactive: < 0.8 Equivocal: >/= 0.8 [...] Date Care Activity Detail Author Start: 04-28-2025 [facility] Start: 04-28-2025 End: 04-28-2025 Patient encounter procedure Advanced maternal age (AMA) in -[place] [facility] Work Phone: Start: 04-26-2025 Patient encounter procedure Registered Clinical -Laboratory Work Phone: Start: 04-02-2025 Nonstress test [facility] Start: 04-02-2025 Obstetric monitoring [facility] Start: 04-02-2025 Vital signs measurements [facility] Start: 04-02-2025 [facility] Start: 04-02-2025 Patient discharge [facility] Start: 03-22-2025 Measurement of glucose 2 hours after glucose challenge for glucose tolerance test [facility] Start: 03-22-2025 Serologic test for syphilis [facility] Start: 03-22-2025 [facility] Start: 02-21-2025 CBC W Auto Differential panel - Blood [facility] Start: 01-10-2025 [facility] Start: 12-27-2024 CBC W Auto Differential panel - Blood [facility] Start: 12-27-2024 Comprehensive metabolic 1999 panel - Serum or Plasma [facility] Start: 12-27-2024 Hemoglobin A1c/Hemoglobin.total in Blood [facility] Start: 12-27-2024 Hepatitis C antibody measurement [facility] Start: 12-27-2024 Rubella IgG measurement [facility] Start: 12-27-2024 Serologic test for syphilis [facility] Start: 12-27-2024 Thyroid stimulating hormone measurement [facility] Start: 12-27-2024 [facility] Start: 12-27-2024 Procedure [facility] Start: 10-29-2022 Liquid based cervical cytology screening [facility] Alanine aminotransfe rase [Enzymatic activity/volume] in Serum or Plasma [facility] Albumin [Mass/volume ] in Serum or Plasma [facility] Alkaline phosphatase [Enzymatic activity/volume] in Serum or Plasma [facility] Anion gap in Serum or Plasma [facility] Bilirubin, total measurement [facility] BUN/Creatinine ratio [facility] Calcium [Mass/volume ] in Serum or Plasma [facility] Carbon dioxide, tota l [Moles/volume] in Central venous blood [facility] CBC W Auto Different ial panel - Blood [facility] CBC W Auto Different ial panel - Blood [facility] Chlamydia deoxyribon ucleic acid detection [facility] Comprehensive metabo lic 1999 panel - Serum or Plasma [facility] Creatinine [Mass/vol ume] in Serum or Plasma [facility] Erythrocyte mean cor puscular volume determination [facility] Erythrocyte mean cor puscular volume determination [facility] Glucose [Mass/volume ] in Serum or Plasma [facility] Hematocrit [Volume F raction] of Blood [facility] Hematocrit [Volume F raction] of Blood [facility] Hemoglobin [Mass/vol ume] in Blood [facility] Hemoglobin [Mass/vol ume] in Blood [facility] Hemoglobin A1c/Hemoglobin.total in Blood [facility] Hepatitis B virus elmore rface Ag [Presence] in Serum [facility] Hepatitis C antibody measurement [facility] Leukocytes [#/volume ] in Blood [facility] Leukocytes [#/volume ] in Blood [facility] Mean corpuscular hem oglobin concentration determination [facility] Mean corpuscular hem oglobin concentration determination [facility] Mean corpuscular hem oglobin determination [facility] Mean corpuscular hem oglobin determination [facility] Measurement of renal function [facility] Neutrophil count [facility] Neutrophil count [facility] Neutrophil percent differential count [facility] Neutrophil percent differential count [facility] Path report.final Dx Spec [facility] Patient Education Kick Counts ED False Labor OB Triage: Return to Hospital or Notify Physician if you Experience: [facility] Work Phone: Platelets [#/volume] in Blood [facility] Platelets [#/volume] in Blood [facility] Potassium measurement [facility] Protein/Creatinine [ Ratio] in Urine [facility] Red blood cell count [facility] Red blood cell count [facility] Red cell distributio n width determination [facility] Red cell distributio n width determination [facility] Rubella IgG measurement [facility] Serologic test for syphilis [facility] Serum chloride measurement [facility] Sodium measurement [facility] T4 free measurement [facility] T4 free measurement [facility] T4 free measurement [facility] Thyroid stimulating hormone measurement [facility] Thyroid stimulating hormone measurement [facility] Thyroid stimulating hormone measurement [facility] Thyroid stimulating hormone measurement [facility] Thyroperoxidase Ab [Units/volume] in Serum or Plasma [facility] Total protein measurement [facility] Triiodothyronine, fr ee measurement [facility] Triiodothyronine, fr ee measurement [facility] Triiodothyronine, fr ee measurement [facility] Urea nitrogen [Mass/ volume] in Serum or Plasma [facility] P[place] Date Payer Category Payer Self-pay [id number] 2024 Unknown [id number] 2022 Unknown [id number] 1990 Unknown [id number] 2.16.840.1.145895.3.579.2.627 1990 Unknown [id number] 2.16.840.1.568060.3.579.2.627 1990 Unknown [id number] 2.16.840.1.208416.3.579.2.479 1990 Unknown [id number] 2.16.840.1.353530.3.579.2.479 Unknown [facility] [id number] Unknown [id number] 2.16.840.1.283140.3.579.2.462 Unknown [id number] 2.840.1.756938.3.579.2.462 Unknown [id number] 2.16840.1.045858.3.579.2.462 Unknown [id number] 2.16840.1.817977.3.579.2.462 Unknown [id number] 2.16840.1.162073.3.579.2.462 Unknown [id number] 2.16.840.1.215466.3.579.2.462 Unknown [id number] 2.16840.1.049244.3.579.2.462 Unknown [id number] 2.16840.1.742716.3.579.2.462 Unknown [id number] 2.16840.1.079567.3.579.2.462 Unknown [id number] 2.16840.1.331231.3.579.2.462 Unknown [id number] 2.16.840.1.069756.3.579.2.462 Unknown [id number] 2.16.840.1.791031.3.579.2.462 Unknown [id number] 2.16.840.1.207779.3.579.2.462 Unknown [id number] 2.16.840.1.270345.3.579.2.462 Unknown [id number] 2.16.840.1.567665.3.579.2.462 Unknown [id number] 2.16.840.1.457538.3.579.2.462 Unknown [id number] 2.16.840.1.689676.3.579.2.462 Unknown [id number] 2.16.840.1.351930.3.579.2.462 Unknown [id number] 2.16.840.1.006610.3.579.2.462 Unknown [id number] 2.16.840.1.989637.3.579.2.462 Unknown [id number] 2.16.840.1.802086.3.579.2.462 Unknown [id number] 2.16.840.1.892812.3.579.2.462 Unknown [id number] 2.16.840.1.284056.3.579.2.462 Unknown [id number] 2.16.840.1.292031.3.579.2.462 Social History Date Type Detail Facility Start: 09-19-2021 End: 10-29-2022 Tobacco smoking status MAIS Unknown if ever smoked [facility] Start: 1990 Sex Assigned At Female [facility] Start: 09-06-2022 End: 11-12-2024 Tobacco smoking status Never smoked tobacco (finding) [facility] Sex Female [facility] Functional Status Date Assessment Result Facility 09-06-2022 Functional Status Sensory Deficits None [facility] Clinical Notes 09-11-2020 to 04-18-2025 Note Date & Type Note Facility 04-18-2025 Progress note [facility] 03-22-2025 Progress note [facility] 01-10-2025 Evaluation note Diagnosis Onset Date [...] thyroid nodule chronic Octobe r 2024 10:40am [facility] Work Phone: 1(951) 565-401206-23-2025 Evaluation note* Diagnosis Onset Date Resolution Status [...] Trauma during acute S eptember 2024 6:20pm [facility] Work Phone: 1(875) 244-950005-21-2025 Evaluation note* Diagnosis Onset Date Resolution Status [...] Nodular goiter chronic December 27, 2024 9:40am [facility] Work Phone: 1(660) 126-495305-21-2025 Evaluation note* Diagnosis Onset Date Resolution Status [...] Hot thyroid nodule acute December 062024 1:26pm [facility] Work Phone: 1(153) 744-974105-21-2025 Evaluation note* Diagnosis Onset Date Resolution Status [...] Nodular goiter chronic January 10, 2025 1:49pm [facility] Work Phone: 1(427) 199-285605-21-2025 Evaluation note* Diagnosis Onset Date Resolution Status [...] Thyroid nodule resolved January 25, 2025 1:51pm [facility] Work Phone: 1(170) 785-775005-21-2025 Evaluation note* Diagnosis Onset Date Resolution Status [...] thyroid nodule chronic February 21, 2025 10:57am [facility] Work Phone: 1(632) [phone] Evaluation note* Diagnosis Onset Date Resolution Status [...] 10:18am Hot thyroid nodule chronic 2024 10:18am [facility] Work Phone: 1(449) 571-843705-21-2025 Progress [facility] [address] [place] [address], [address] [place] [address] OFFICE VISIT Date of Service: 11/24/24 MR#: [id number] Acct: [id number] Name: DEMARCUS ABAD Rep #: [id number] : 1990 Provider: SULLY Aguila Age/Sex: 34/F Location: [facility] Status: Signed Intake Vital Signs 08/23/24 15:14 11/24/24 12:59 Height 5 ft 2 in 5 ft 2 in Weight: 166 lb 168 lb 8 oz BMI 30.3 30.8 BP 119/77 108/74 Intake Visit Reasons: NOB LMP 09/27 Chief Complaint: New OB Title Specialist Required: No Is patient in pain?: No Allergies Penicillins Allergy (Unknown, Verified 11/24/24 12:57) Unknown Medications ?Medication ?Instructions ?Recorded ?Confirmed ?Type ferrous sulfate 325 mg (65 mg 325 mg PO DAILY 09/05/23 11/24/24 History iron) tablet (Feosol) multivit-min no.71-iron fum 28 cap PO 11/12/24 5 History mg-folate no.1 1 mg-dha 300 mg capsule (PNV-Cathay) Last Menstrual Period: 09/27/24 : Yes PFSH PFSH Medical History Hx of varicose veins of lower extremity Depression Nodular goiter HPV (human papilloma virus) infection Thyroid disorder Pre-eclampsia Abnormal glucose Anemia Surgical History History of bunionectomy of right great toe Mertens teeth extracted History of colposcopy Family History Mother Hypertension Father Diabetes Aunt Thyroid disorder Maternal- unknown type Social History adopted: No household members: spouse and children housing: house number of children: 2 service: No current occupational status: unemployed current occupation: [employer] pets and animals: Yes (no litter [...] physical activity do you participate in: none [place]/advent: [employer] seatbelt use: always do you feel safe [...] Shlomo 36 live - 6# Male epidural [facility] Taye 08/08/21 Emalie 36 live - 6lbs 14oz Female ep idural [facility] Edda Veljaime Delivery Date: 04/30/08 Last Updated by: Manda Aguirre MACHINE LEARNING INTERN, MACHINE LEARNING INTERN-C Induced to preeclampsia, teen Delivery Date: 08/08/21 [...] Thyroid dysfunction (Thyroid nodule), Drug/latex allergies/reactions (PCN), Kelp Gatherer surgery (Colposcopy), Operations/hospitalizations (wisdom teeth, bunionectomy-right), History [...] and Symptoms of Preeclampsia, Feeding Yes , [place] Education and Family Medical Leave or Disability [...] Cosigner Signature: Date (if applicable) CC: ~ [facility]02-17-2025 Evaluation note* Diagnosis Onset Date Resolution [...] Nodular goiter chronic November 24, 2024 12:49pm [facility] Work Phone: 1(994) 451-930604-26-2021 NoteHNO ID: [id number] Author: Brian Alcocer Service: ? Author Type: [...] suspect is musculoskeletal. Get (more content not included)...[facility]03-08-2021 NoteHNO ID: [id number] Author: Jacey Galdamez Service: ? Author Type: Nurse Practitioner Type: Progress Notes Filed: 09/11/2020 9:25 AM Note Text: Subjective Patient triaged in [facility] care. Patient presenting with intermittent dizziness, left chest pain, left arm numbness for months. Denies cardiac history. Discussed limitations of express care, I will refer to family medicine. Patient appears in on distress today. I advised if s/s become severe needs to [facility] Future Appointments [facility] Evaluation noteNo assessment information available [facility] Work Phone: Evaluation note* Diagnosis Onset Date Resolution Status Nodular goiter acute Encounter for routine gynecological examination noneactive [facility] Work Phone: History and physical note [facility] Medical Records Department [address] [place] [address] OB Triage Physician Note 04/03/25 1535 MR#: [id number] Acct: [id number] Name: DEMARCUS ABAD Rep #:[id number] : 1990 35 From: William Ceballos MD PCP: Dr. Beatriz Escobar MD Status :DEP CLI Y Location: [facility] HPI - General HPI Narrative [...] 1 mg-dha 300 mg 1 cap capsule (PNV-Cathay) methimazole 5 mg tablet 2.5 mg (1/2 x 5 mg) PO .ever y 01/17/25 03/30/25 08:00 Rx other day #15 tabs 2.5 mg Allergy/AdvReac Type Severity Reaction Status Date / Time Penicillins Allergy Unknown Unknown Verified 04/02/25 18:30 Family History Mother Hypertension Father Diabetes Aunt Thyroid disorder Maternal- unknown type Surgical History History of bunionectomy of right great toe Mertens teeth extracted History of colposcopy Social History adopted: No household members: spouse and children housing: house number of children: 2 current occupational status: unemployed current occupation: [employer] pets and animals: Yes (no litter [...] physical activity do you participate in: none [place]/advent: Advent seatbelt use: always do you feel safe at home: Yes additional social history: [email or web address] [facility] History 4 Elective abortions Hx Para 2 Spontaneous abortions 1 Hx # Term Pregnancies Ectopic pregnancies Hx # Pregnancies 2 Multiple births # of living children 2 Past Pregnancies Del. Date Name GA/Weeks Outcome Route Bth Weight Infant Gen Labor Lgth Anesthesia Del Locatn Provider FOB Unknown 08/2024 6 spontaneous 04/30/08 Shlomo 36 live - 6# Male epidural [facility] Taye 08/08/21 Emalie 36 live - 6lbs 14oz Female ep idural [facility] [place] Delivery Date: 04/30/08 Last Updated by: Manda Aguirre MACHINE LEARNING INTERN, MACHINE LEARNING INTERN-C Induced to preeclampsia, teen Delivery Date: 08/08/21 [...] G ood FM. Discussed managing sciatic pain. [facility] NST FHR Rate Baby A NST [...] MD; Dr. William Ceballos MD ~ Signed [facility] Author William akilah [facility] Note Date/Time April 03, 2025 3:40pm [facility] Medical Records Department [address] [place] [address] OB Triage Physician Note 04/03/25 1535 MR#: [id number] Acct: [id number] Name: DEMARCUS ABAD Rep #:[id number] : 1990 35 From: William Ceballos MD PCP: Dr. Beatriz Escobar MD Status :[facility] Y Location: [facility] HPI - General HPI Narrative [...] 1 mg-dha 300 mg 1 cap capsule (PNV-Cathay) methimazole 5 mg tablet 2.5 mg (1/2 x 5 mg) PO .ever y 01/17/25 03/30/25 08:00 Rx other day #15 tabs 2.5 mg Allergy/AdvReac Type Severity Reaction Status Date / Time Penicillins Allergy Unknown Unknown Verified 04/02/25 18:30 Family History Mother Hypertension Father Diabetes Aunt Thyroid disorder Maternal- unknown type Surgical History History of bunionectomy of right great toe Mertens teeth extracted History of colposcopy Social History adopted: No household members: spouse and children housing: house number of children: 2 current occupational status: unemployed current occupation: [employer] pets and animals: Yes (no litter [...] physical activity do you participate in: none [place]/advent: Advent seatbelt use: always do you feel safe [...] Shlomo 36 live - 6# Male epidural [facility] Taye 08/08/21 Emalie 36 live - 6lbs 14oz Female ep idural [facility] [place] Delivery Date: 04/30/08 Last Updated by: Manda Aguirre MACHINE LEARNING INTERN, MACHINE LEARNING INTERN-C Induced to preeclampsia, teen Delivery Date: 08/08/21 [...] MD; Dr. William Ceballos MD ~ Signed [facility] Work Phone: Hospital course Narrative No data available for this section [facility] Hospital Discharge instructions No data available for this section [facility] Progress note No data available for this section [facility] Progress note Author yLssa Aguila [facility] Note Date/Time November 24, 2024 1:35p m [facility]'s [address], [address] [place] [address] OFFICE VISIT Date of Service: 11/24/24 MR#: [id number] Acct: [id number] Name: DEMARUCS ABAD Rep #: [id number] : 1990 Provider: SULLY Aguila Age/Sex: 34/F Location: [facility] Status: Signed Intake Vital Signs 08/23/24 15:14 11/24/24 12:59 Height 5 ft 2 in 5 ft 2 in Weight: 166 lb 168 lb 8 oz BMI 30.3 30.8 BP 119/77 108/74 Intake Visit Reasons: NOB LMP 09/27 Chief Complaint: New OB Title Specialist Required: No Is patient in pain?: No Allergies Penicillins Allergy (Unknown, Verified 11/24/24 12:57) Unknown Medications ?Medication ?Instructions ?Recorded ?Confirmed ?Type ferrous sulfate 325 mg (65 mg 325 mg PO DAILY 09/05/23 11/24/24 History iron) tablet (Feosol) multivit-min no.71-iron fum 28 cap PO 11/12/24 5 History mg-folate no.1 1 mg-dha 300 mg capsule (PNV-Cathay) Last Menstrual Period: 09/27/24 : Yes PFSH PFSH Medical History Hx of varicose veins of lower extremity Depression Nodular goiter HPV (human papilloma virus) infection Thyroid disorder Pre-eclampsia Abnormal glucose Anemia Surgical History History of bunionectomy of right great toe Mertens teeth extracted History of colposcopy Family History Mother Hypertension Father Diabetes Aunt Thyroid disorder Maternal- unknown type Social History adopted: No household members: spouse and children housing: house number of children: 2 service: No current occupational status: unemployed current occupation: [employer] pets and animals: Yes (no litter [...] physical activity do you participate in: none [place]/advent: Advent seatbelt use: always do you feel safe [...] Shlomo 36 live - 6# Male epidural [facility] Taye 08/08/21 Emalie 36 live - 6lbs 14oz Female ep idural [facility] [place] Delivery Date: 04/30/08 Last Updated by: Manda Aguirre MACHINE LEARNING INTERN, MACHINE LEARNING INTERN-C Induced to preeclampsia, teen Delivery Date: 08/08/21 [...] Thyroid dysfunction (Thyroid nodule), Drug/latex allergies/reactions (PCN), Kelp Gatherer surgery (Colposcopy), Operations/hospitalizations (wisdom teeth, bunionectomy-right), History [...] Symptoms of Preeclampsia, Infant Feeding Yes , [place] Education and Family Medical Leave or Disability [...] (13) History of colposcopy: Status: Acute Comment: [facility] pap 04/2020 pos HPV, neg pap. Neg colp wo bx per [facility] [facility] 05/2020 Orders: Orders [...] to patient and patient chose: NIPT 11/24/24 [id number] <Electronically signed by Lyssa preston CNM> Date _ Lyssa Aguila CNM Cosigner Signature: Date (if applicable) CC: ~ [facility] Work Phone: Progress note Author Manda Aguirre [facility] Note Date/Time March 22, 2025 10:55am [facility] [address], [address] [place] [address] OFFICE VISIT Date of Service: 03/22/25 MR#: [id number] Acct: [id number] Name: DEMARCUS ABAD Rep #: [id number] : 1990 Provider: LUCILA Aguirre Age/Sex: 35/F Location: [facility] [place] Status: Signed Intake Vital Signs 01/25/25 13:59 02/21/25 11:01 03/22/25 10:32 03/22/25 10:36 Height 5 ft 2 in 5 ft 2 in 5 ft 2 in 5 ft 2 in Weight: 178 lb 1 oz BMI 32.5 BP 111/75 Intake Visit Reasons: 24wk ob Chief Complaint: 24 Week OB Title Specialist Required: No Is patient in pain?: No Allergies Penicillins Allergy (Unknown, Verified 03/22/25 10:35) Unknown Medications ?Medication ?Instructions ?Recorded ?Confirmed ?Type ferrous sulfate 325 mg (65 mg 325 mg PO DAILY 09/05/23 03/22/25 History iron) tablet (Feosol) multivit-min no.71-iron fum 28 cap PO 11/12/24 5 History mg-folate no.1 1 mg-dha 300 mg capsule (PNV-Cathay) methimazole 5 mg tablet 2.5 mg (1/2 [...] History of bunionectomy of right great toe [place] teeth extracted History of colposcopy Family History Mother Hypertension Father Diabetes Aunt Thyroid disorder Maternal- unknown type Social History adopted: No household members: spouse and children housing: house number of children: 2 current occupational status: unemployed current occupation: [employer] pets and animals: Yes (no litter [...] physical activity do you participate in: none [place]/advent: Advent seatbelt use: always do you feel safe at home: Yes 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 Date Name GA/Weeks Outcome Route Bth Weight Gen Labor Lgth Anesthesia Del Locatn Provider FOB Unknown 08/2024 6 spontaneous 04/30/08 Shlomo 36 live - 6# Male epidural [facility] Taye 08/08/21 Emalie 36 live - 6lbs 14oz Female ep idural [facility] [place] Delivery Date: 04/30/08 Last Updated by: Manda Aguirre MACHINE LEARNING INTERN, MACHINE LEARNING INTERN-C Induced to preeclampsia, teen Delivery Date: 08/08/21 [...] Symptoms of Preeclampsia, Infant Feeding No , [place] Education and Family Medical Leave or Disability [...] [id number] <Electronically signed by Manda Hasting s MACHINE LEARNING INTERN MACHINE LEARNING INTERN-C> Date _ Mandamal Thomass MACHINE LEARNING INTERN MACHINE LEARNING INTERN-C Cosigner Signature: Date (if applicable) CC: ~ [facility] Work Phone: Progress note Author Carmelita Cary [facility] Note Date/Time April 18, 2025 1 1:47am [facility] [address] [place] [address], [address] [place] [address] OFFICE VISIT Date of Service: 04/18/25 MR#: [id number] Acct: [id number] Name: DEMARCUS ABAD Rep #: [id number] : 1990 Provider: Dr. Sandra Weeks DO Age/Sex: 35/F [facility] Status: Signed Intake Vital Signs 01/25/25 13:59 04/02/25 18:35 04/18/25 10:56 04/18/25 10:59 Height 5 ft 2 in 5 ft 2 in 5 ft 2 in 5 ft 2 in Weight: 183 lb 9 oz BMI 33.5 BP 106/71 Intake Visit Reasons: 28wk ob/glucose Title Specialist Required: No Is patient in pain?: No Allergies Penicillins Allergy (Unknown, Verified 04/18/25 10:56) Unknown Medications ?Medication ?Instructions ?Recorded ?Confirmed ?Type multivit-min no.71-iron fum 28 1 cap PO DAILY 11/12/24 04/18/25 History mg-folate no.1 1 mg-dha 300 mg capsule (PNV-Cathay) methimazole 5 mg tablet 2.5 mg (1/2 [...] History of bunionectomy of right great toe [place] teeth extracted History of colposcopy Family History Mother Hypertension Father Diabetes Aunt Thyroid disorder Maternal- unknown type Social History adopted: No household members: spouse and children housing: house number of children: 2 current occupational status: unemployed current occupation: [employer] pets and animals: Yes (no litter [...] physical activity do you participate in: none [place]/advent: Advent seatbelt use: always do you feel safe at home: Yes 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 Date Name GA/Weeks Outcome Route Bth Weight Infant Gen Labor Lgth Anesthesia Del Locatn Provider FOB Unknown 08/2024 6 spontaneous 04/30/08 Shlomo 36 live - 6# Male epidural [facility] Taye 08/08/21 Emalie 36 live - 6lbs 14oz Female ep idural [facility] [place] Delivery Date: 04/30/08 Last Updated by: Manda Aguirre MACHINE LEARNING INTERN, MACHINE LEARNING INTERN-C Induced to preeclampsia, teen Delivery Date: 08/08/21 [...] Cosigner Signature: Date (if applicable) CC: ~ [facility] Work Phone: Reason for referral (narrative)[facility] for [facility] Work Phone: Summary Purpose Family History [...] August 16, 2 022 3:11pm Power of Pocketed Spring Assembler No August 16, 2021 3:11pm Chief Complaint and Reason for Visit Chief Complaint THYROID NODULE Chief Complaint Thyroid Annual (HEAD OF MEASUREMENT & INSIGHTS) Reason for Visit Nodular goiter Encounter for [...] section and content) DATE CREATED AUTHOR 08/26/2021 [facility] DATE CREATED AUTHOR AUTHOR'S ORGANIZ ATION 09/23/2022 [facility] ([place]) DATE CREATED AUTHOR AUTHOR'S ORGANIZ ATION 03/03/2025 [facility] DATE CREATED AUTHOR AUTHOR'S ORGANIZ ATION 05/18/2025 [place] Replaced By [facility] Goals (unrecognized section and content) Type Care [...] Role: Primary Care Physician Address: Address: [address] [place] [address]- Care Team Related Persons Name: MEDARDO ABAD Address: Home [address] [address] Care Teams (unrecognized sec tion and content) [...] 2024 End: December 27, 2024 Manda Aguirre MACHINE LEARNING INTERN, MACHINE LEARNING INTERN-C Attending Provider Active Start: December 27, 2024 End: December 27, 2024 Team Status: Active Member Role Status Dates Dr. Beatriz Escobar MD Primary Care Provider Acti ve Start: December 27, 2024 Manda Aguirre MACHINE LEARNING INTERN, MACHINE LEARNING INTERN-C Attending Provider Active Start: December 27, 2024 Manda Aguirre MACHINE LEARNING INTERN, MACHINE LEARNING INTERN-C Referring Provider Active Start: December 27, 2024 [...] 2024 End: December 27, 2024 Manda Aguirre MACHINE LEARNING INTERN, MACHINE LEARNING INTERN-C Attending Provider Active Start: December 27, 2024 End: December 27, 2024 Team Status: Inactive Member Role/Relationship Status Dates Dr. Beatriz Escobar MD Primary Care Provider Acti ve Start: December 27, 2024 End: December 27, 2024 Manda Aguirre MACHINE LEARNING INTERN, MACHINE LEARNING INTERN-C Attending Provider Active Start: December 27, 2024 End: December 27, 2024 Manda Aguirre MACHINE LEARNING INTERN, MACHINE LEARNING INTERN-C Referring Provider Active Start: December 27, 2024 [...] Inactive Member Role/Relationship Status Dates Dr. Beatriz Ecsobar MD Primary Care Provider Acti ve Start: January 10, 2025 End: January 10, 2025 Dr. Beatriz Escobar MD Referring Provider Active Start: January 10, 2025 End: January 10, 2025 Manda Aguirre NP, MACHINE LEARNING INTERN-C Attending Provider Active Start: January 10, 2025 [...] 2025 End: March 22, 2025 Manda Aguirre MACHINE LEARNING INTERN, MACHINE LEARNING INTERN-C Attending Provider Active Start: March 22, 2025 End: March 22, 2025 Team Status: Active Member Role/Relationship Status Dates Dr. eBatriz Escobar MD Primary care physician Act rhys Team Status: Inactive Member Role/Relationship Status Dates Dr. Beatriz Escobar MD Primary care physician Act rhys Start: December 27, 2024 End: December 27, 2024 Dr. Beatriz Escobar MD Referring Provider Active Start: December 27, 2024 End: December 27, 2024 Manda Aguirre MACHINE LEARNING INTERN, MACHINE LEARNING INTERN-C Attending physician Active Start: December 27, 2024 End: December 27, 2024 Team Status: Inactive Member Role/Relationship Status Dates Dr. Beatriz Escobar MD Primary care physician Act rhys Start: December 27, 2024 End: December 27, 2024 Manda Aguirre MACHINE LEARNING INTERN, MACHINE LEARNING INTERN-C Attending physician Active Start: December 27, 2024 End: December 27, 2024 Manda Aguirre MACHINE LEARNING INTERN, MACHINE LEARNING INTERN-C Referring Provider Active Start: December 27, 2024 [...] 2025 End: January 10, 2025 Manda Aguirre MACHINE LEARNING INTERN, MACHINE LEARNING INTERN-C Attending physician Active Start: January 10, 2025 [...] 2025 End: March 22, 2025 Manda Aguirre MACHINE LEARNING INTERN, MACHINE LEARNING INTERN-C Attending physician Active Start: March 22, 2025 [...] 2025 End: January 10, 2025 Manda Aguirre MACHINE LEARNING INTERN, MACHINE LEARNING INTERN-C Attending physician Active Start: January 10, 2025 [...] 2025 End: March 22, 2025 Manda Aguirre MACHINE LEARNING INTERN, MACHINE LEARNING INTERN-C Attending physician Active Start: March 22, 2025 [...] Status: Active Member Role/Relationship Status Dates Dr. Beatrzi Escobar MD Primary care physician Act rhys [...] rhys Start: April 26, 2025 Manda Aguirre MACHINE LEARNING INTERN, MACHINE LEARNING INTERN-C Attending physician Active Start: April 26, 2025 Manda Aguirre MACHINE LEARNING INTERN, MACHINE LEARNING INTERN-C Referring Provider Active Start: April 26, 2025 [...] BE BASED ON THE PRIMARY CLINICAL RECORDS. [facility]. provides no warranty or guarantee of the accuracy or completeness of information in this document.
[2025-06-27 03:00] LABS: Syphilis Antibodies Nonreactive (Nonreactive)
--- NOTE | 2025-06-27 07:59 | HP.PCM.OB_ITS ---
HPI - General General Date of Admission: 06/27/25 HPI Narrative DEMARCUS ABAD, is a 35 F who presents with elevated bps preeclampsia, will keep for IOL. no garvey bv good fm no regular ctx. Maternal Data Information ROSE Calculator Estimated Delivery Date Method Current WG Current Estimate 07/04/25 LMP (Certain) 39w 0d Other Estimates 07/07/25 Ultrasound #1 38w 4d PFSH PFSH Medical History (Updated 06/27/25 @ 09:[address] Gaby Trimble MD) Hot thyroid nodule Hx of varicose veins of lower extremity Depression Nodular goiter HPV (human papilloma virus) infection Thyroid disorder Pre-eclampsia Abnormal glucose Anemia Home Medications ?Medication ?Instructions ?Recorded ?Last Taken ?Type multivit-min no.71-iron fum 28 1 cap PO DAILY 11/12/24 06/25/25 History mg-folate no.1 1 mg-dha 300 mg capsule (PNV-Ione) methimazole 5 mg tablet 2.5 mg (1/2 x 5 mg) PO .ever y 05/23/25 06/24/25 Rx other day #15 tabs aspirin 81 mg tablet 81 mg PO DAILY 06/12/2506/07 History Allergy/AdvReac Type Severity Reaction Status Date / Time Penicillins Allergy Unknown Unknown Verified 06/26/25 22:02 Family History Mother Hypertension Father Diabetes Aunt Thyroid disorder Maternal- unknown type Surgical History (Updated 06/27/25 @ 00:40 by Janet Tafoya) History of bunionectomy History of bunionectomy of right great toe [place] teeth extracted History of colposcopy Social History adopted: No household members: spouse and children housing: house number of children: 2 current occupational status: unemployed current occupation: [employer] pets and animals: Yes (no litter box) pets and animals: cat(s) history of recent travel: No sexually active: Yes Smoking Status: Never smoker alcohol intake: never substance use type: does not use well-balanced diet: daily or most days caffeine: No eating out: 1-3 times/week during the past year weight has: increased > 10 lbs what type of physical activity do you participate in: none madison/presybeterian: Taoist seatbelt use: always do you feel safe at home: Yes 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 Date Name GA/Weeks Outcome Route Bth Weight Gen Labor Lgth Anesthesia Del Locatn Provider FOB Unknown 08/2024 6 spontaneous 04/30/08 Shlomo 36 live - 6# Male epidural [facility] Taye 08/08/21 Emalie 36 live - 6lbs 14oz Female ep idural [facility] [place] Delivery Date: 04/30/08 Last Updated by: Cassidy Aguirre ELECTRICIAN SUPERVISOR, ELECTRICIAN SUPERVISOR-C Induced to preeclampsia, teen Delivery Date: 08/08/21 Last Updated by: Ashley FLORES pre-e Visit Details Expected Delivery Route/Plan Labor Preferences- CB/BF classes: [] labor support person: [] labor intervention preferences: [] pain management options preferred: epidural cut cord/dad catch: [] : [] PP control planned: [] discussed possible routes of delivery and associated risks: [] special requests: [] Plans Covid status: [] Flu vaccine: [] Tdap vaccine: [] Rhogam: [] LARC form signed: yes Problem list reviewed and updated with the most current plan of care details and appropriate orders placed. Relevant counseling for the gestational age provided. Continue routine care and follow up unless otherwise noted in visit notes/problem list details OB Flowsheet Initial Weight: 168 lb Date -?-?-?-?-?-?-?-?-?-?-?-?- EGA Weight BP Urine Prot -?-?-?-?-?-?-?-?-?-?-?-?- Glucose FHR FuHt Pres Dilation -?-?-?-?-?-?-?-?-?-?-?-?- Effaced St Visit Note 11/24/24 -?-?-?-?-?-?-?-?-?-?-?-?- 8w 2d 168 lb 8 oz (+8 oz) 108/74 -?-?-?-?-?-?-?-?-?-?-?-?- 162 -?-?--?-?-?-?-?-?-?-?-?-?- KW- CRL cons wit h dates. accepts NIPT. 12/27/24 -?-?-?-?-?-?-?-?-?-?-?-?- 13w 0d 166 lb (-2 lb) 115/73 Negative -?-?-?-?-?-?-?-?-?-?-?-?- Negative 160 -?-?-?-?-?-?-?-?-?-?-?-?- -NoVB. Br c onfirm FHT. Nausea persists, no vomiting. Will try B6&unisom. Dysuria: + UA. Culture pending, Rx macrobid. PN labs, NIPT today. 01/10/25 -?-?-?-?-?-?-?-?-?-?-?-?- 15w 0d 165 lb 8 oz (-2 lb 8 oz) 114/68 -?-?-?-?--?-?-?-?-?-?-?-?- 163 -?-?-?-?-?-?-?-?-?-?-?-?- -work in for F HT check. Thought felt movement and then did not. FHT easily found with br 01/25/25 -?-?-?-?-?-?-?-?-?-?-?-?- 17w 1d 167 lb 2 oz (-14 oz) 111/73 Negative -?-?-?-?-?-?-?-?-?-?-?-?- Negative 150 -?-?-?-?-?-?-?-?-?--?-?-?- SM- no vb lof cr amping 02/21/25 -?-?-?-?-?-?-?-?-?-?-?-?- 21w 0d 170 lb 8 oz (+2 lb 8 oz) 103/68 Negative -?-?-?-?--?-?-?-?-?-?-?-?- Negative 158 21 -?-?-?-?-?-?-?-?-?-?-?-?- KW- no vb/lof/ct x. good fm. will get thyroid labs today. many questions answered. 03/22/25 -?-?-?-?-?-?-?-?-?-?-?-?- 25w 1d 178 lb 1 oz (+10 lb 1 oz) 111/75 Negative -?-?-?-?-?-?-?-?-?-?-?-?- Negative 142 26 -?-?-?-?-?-?-?-?-?-?-?-?- MH-No VB, LOF. G ood FM. Discussed managing sciatic pain. Larc 04/18/25 -?-?-?-?-?-?-?-?-?-?-?-?- 29w 0d 183 lb 9 oz (+15 lb 9 oz) 106/71 Negative -?-?-?-?-?-?-?-?-?-?-?-?- Negative 135 29 -?-?-?-?-?-?-?-?-?-?-?-?- JV- no lof, vagi nal bleeding, or dec fm. declines tdap, flu, and rsv. has not started baby asa yet. encouraged to do so for prevention of pre-e. JV- no lof, vaginal bleeding , or dec fm. declines tdap, flu, and rsv. has not started baby asa yet. encouraged to do so for prevention of pre-e. tsh, free t4,free t3, and 28 week labs today 04/28/25 -?-?-?-?-?-?-?-?-?-?-?-?- 30w 3d 187 lb (+19 lb) 114/71 Negative -?-?-?-?-?-?-?-?-?-?-?-?- Negative 145 31 -?-?-?-?-?-?-?-?-?-?-?-?- JV- no current l of, vaginal bleeding, or dec fm. thinks had some loss of fluid yesterday but does not think it was her water bag. bodily injury adjuster was unable to draw her blood for the 3 hr test and sent her home. she is willing to try this again with a new bodily injury adjuster 05/16/25 -?-?-?-?-?-?-?-?-?-?-?-?- 33w 0d 190 lb 4 oz (+22 lb 4 oz) 119/80 1+ -?-?-?-?-?-?-?-?-?-?-?-?- Negative 138 33 -?-?-?-?-?-?-?-?-?-?-?-?- JV- patient pass ed her glucola. still taking baby asa and has questions about her urine. no protein today. 05/30/25 -?-?-?-?-?-?-?-?-?-?-?-?- 35w 0d 195 lb 4 oz (+27 lb 4 oz) 119/78 Negative -?-?-?-?-?-?-?-?-?-?-?-?- Negative 130 36 -?-?-?-?-?-?-?-?-?-?-?-?- SM- no vb lof go od fm no regular ctx 06/08/25 -?-?-?-?-?-?-?-?-?-?-?-?- 36w 2d 200 lb (+32 lb) 131/84 Trace -?-?-?-?-?-?-?-?-?-?-?-?- Negative 130 36 -?-?-?-?-?-?-?-?-?-?-?-?- KV- Good FM. Str bushra ctx and diarrhea overnight, slowing down now. No LOF/VB. Baby moving more since on monitor. Reactive NST. 06/14/25 -?-?-?-?-?-?-?-?-?-?-?-?- 37w 1d 202 lb (+34 lb) 129/89 1+ -?-?-?-?-?-?-?-?-?-?-?-?- Negative 153 38 -?-?-?-?-?-?-?-?-?-?-?-?- KV- Good FM. Irr egular ctx. No LOF/VB. Still having some RUQ pain and flashers. Getting repeat PIH labs today. 06/21/25 -?-?-?-?-?-?-?-?-?-?-?-?- 38w 1d 205 lb 4 oz (+37 lb 4 oz) 135/84 2+ -?-?-?-?-?-?-?-?-?-?-?-?- Negative 130 40 Cephalic 3 -?-?-?-?-?-?-?-?-?-?-?-?- 70 -2 KW- no vb/ lof/ctx. good fm. induction set up for 39 weeks for ama. pre e labs today NST FHR Rate Baby A Baseline: 130 Variability:: Moderate Accelerations:: 15 x 15 Decelerations:: None NST Reactive:: Yes FHR Category:: Category I Uterine Activity:: irregular ROS Constitutional Constitutional: Reports systems reviewed and no addt'l complaints, except as documented Eyes Eyes: Denies change in vision ENT HEENT: Reports systems reviewed and no addt'l complaints, except as documented; Denies headache(s) Cardiovascular Cardiovascular: Reports systems reviewed and no addt'l complaints, except as documented; Denies chest pain or dyspnea Respiratory/Chest Respiratory/Chest: Reports systems reviewed and no addt'l complaints, except as documented Gastrointestinal Gastrointestinal: Reports systems reviewed and no addt'l complaints, except as documented; Denies abdominal pain Genitourinary Genitourinary: Reports systems reviewed and no addt'l complaints, except as documented, contractions Details: present (irregular) and movement Details: present; Denies dysuria or genital lesions Musculoskeletal Musculoskeletal: Reports systems reviewed and no addt'l complaints, except as documented Neurologic Neurologic: Reports systems reviewed and no addt'l complaints, except as docum ented Endocrine Endocrinology: Reports systems reviewed and no addt'l complaints, except as documented Vital Signs Vital Signs Vital Signs: 06/26/25 21:52 06/26/25 21:52 06/26/25 21:57 Temperature Temperature Source Pulse Rate 65 Respiratory Rate Blood Pressure 140/84 H BP Systolic 140 BP Diastolic 84 Pulse Ox 98 06/26/25 21:57 06/26/25 21:58 06/26/25 21:58 Temperature 98.8 F Temperature Source Temporal Pulse Rate 67 Respiratory Rate
--- NOTE | 2025-06-27 07:59 | PCM.HP.OB ---
HPI - General General Date of Admission: 06/27/25 HPI Narrative DEMARCUS ABAD, is a 35 F who presents with elevated bps preeclampsia, will keep for IOL. no garvey bv good fm no regular ctx. Maternal Data Information ROSE Calculator Estimated Delivery Date Method Current WG Current Estimate 07/04/25 LMP (Certain) 39w 0d Other Estimates 07/07/25 Ultrasound #1 38w 4d PFSH PFSH Medical History (Updated 06/27/25 @ 09:[address] Gaby Trimble MD) Hot thyroid nodule Hx of varicose veins of lower extremity Depression Nodular goiter HPV (human papilloma virus) infection Thyroid disorder Pre-eclampsia Abnormal glucose Anemia Home Medications ?Medication ?Instructions ?Recorded ?Last Taken ?Type multivit-min no.71-iron fum 28 1 cap PO DAILY 11/12/24 06/25/25 History mg-folate no.1 1 mg-dha 300 mg capsule (PNV-Okarche) methimazole 5 mg tablet 2.5 mg (1/2 x 5 mg) PO .every 05/23/25 06/24/25 Rx other day #15 tabs aspirin 81 mg tablet 81 mg PO DAILY 06/12/25 06/25/25 History Allergy/AdvReac Type Severity Reaction Status Date / Time Penicillins Allergy Unknown Unknown Verified 06/26/25 22:02 Family History Mother Hypertension Father Diabetes Aunt Thyroid disorder Maternal- unknown type Surgical History (Updated 06/27/25 @ 00:40 by Janet Tafoya) History of bunionectomy History of bunionectomy of right great toe [place] teeth extracted History of colposcopy Social History adopted: No household members: spouse and children housing: house number of children: 2 current occupational status: unemployed current occupation: [employer] pets and animals: Yes (no litter box) pets and animals: cat(s) history of recent travel: No sexually active: Yes Smoking Status: Never smoker alcohol intake: never substance use type: does not use well-balanced diet: daily or most days caffeine: No eating out: 1-3 times/week during the past year weight has: increased > 10 lbs what type of physical activity do you participate in: none [place]/adventism: Spiritism seatbelt use: always do you feel safe at home: Yes 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 Date Name GA/Weeks Outcome Route Bth Weight Gen Labor Lgth Anesthesia Del Locatn Provider FOB Unknown 08/2024 6 spontaneous 04/30/08 Shlomo 36 live - 6# Male epidural [facility] Taye 08/08/21 Emalie 36 live - 6lbs 14oz Female epidural [facility] Vande Velde Delivery Date: 04/30/08 Last Updated by: Cassidy Aguirre UNIFIED COMMUNICATIONS ENGINEER, UNIFIED COMMUNICATIONS ENGINEER-C Induced to preeclampsia, teen Delivery Date: 08/08/21 Last Updated by: Ashley FLORES pre-e Visit Details Expected Delivery Route/Plan Labor Preferences- CB/BF classes: [] labor support person: [] labor intervention preferences: [] pain management options preferred: epidural cut cord/dad catch: [] : [] PP control planned: [] discussed possible routes of delivery and associated risks: [] special requests: [] Plans Covid status: [] Flu vaccine: [] Tdap vaccine: [] Rhogam: [] LARC form signed: yes Problem list reviewed and updated with the most current plan of care details and appropriate orders placed. Relevant counseling for the gestational age provided. Continue routine care and follow up unless otherwise noted in visit notes/problem list details OB Flowsheet Initial Weight: 168 lb Date <del>?</del> EGA Weight BP Urine Prot <del>?</del> Glucose FHR FuHt Pres Dilation <del>?</del> Effaced St Visit Note 11/24/24 <del>?</del> 8w 2d 168 lb 8 oz (+8 oz) 108/74 <del>?</del> 162 <del>?</del> KW- CRL cons with dates. accepts NIPT. 12/27/24 <del>?</del> 13w 0d 166 lb (-2 lb) 115/73 Negative <del>?</del> Negative 160 <del>?</del> -NoVB. Br US confirm FHT. Nausea persists, no vomiting. Will try B6&unisom. Dysuria: + UA. Culture pending, Rx macrobid. PN labs, NIPT today. 01/10/25 <del>?</del> 15w 0d 165 lb 8 oz (-2 lb 8 oz) 114/68 <del>?</del> 163 <del>?</del> -work in for FHT check. Thought felt movement and then did not. FHT easily found with br US 01/25/25 <del>?</del> 17w 1d 167 lb 2 oz (-14 oz) 111/73 Negative <del>?</del> Negative 150 <del>?</del> SM- no vb lof cramping 02/21/25 <del>?</del> 21w 0d 170 lb 8 oz (+2 lb 8 oz) 103/68 Negative <del>?</del> Negative 158 21 <del>?</del> KW- no vb/lof/ctx. good fm. will get thyroid labs today. many questions answered. 03/22/25 <del>?</del> 25w 1d 178 lb 1 oz (+10 lb 1 oz) 111/75 Negative <del>?</del> Negative 142 26 <del>?</del> MH-No VB, LOF. Good FM. Discussed managing sciatic pain. Larc 04/18/25 <del>?</del> 29w 0d 183 lb 9 oz (+15 lb 9 oz) 106/71 Negative <del>?</del> Negative 135 29 <del>?</del> JV- no lof, vaginal bleeding, or dec fm. declines tdap, flu, and rsv. has not started baby asa yet. encouraged to do so for prevention of pre-e. JV- no lof, vaginal bleeding, or dec fm. declines tdap, flu, and rsv. has not started baby asa yet. encouraged to do so for prevention of pre-e. tsh, free t4,free t3, and 28 week labs today 04/28/25 <del>?</del> 30w 3d 187 lb (+19 lb) 114/71 Negative <del>?</del> Negative 145 31 <del>?</del> JV- no current lof, vaginal bleeding, or dec fm. thinks had some loss of fluid yesterday but does not think it was her water bag. value advisor was unable to draw her blood for the 3 hr test and sent her home. she is willing to try this again with a new value advisor 05/16/25 <del>?</del> 33w 0d 190 lb 4 oz (+22 lb 4 oz) 119/80 1+ <del>?</del> Negative 138 33 <del>?</del> JV- patient passed her glucola. still taking baby asa and has questions about her urine. no protein today. 05/30/25 <del>?</del> 35w 0d 195 lb 4 oz (+27 lb 4 oz) 119/78 Negative <del>?</del> Negative 130 36 <del>?</del> SM- no vb lof good fm no regular ctx 06/08/25 <del>?</del> 36w 2d 200 lb (+32 lb) 131/84 Trace <del>?</del> Negative 130 36 <del>?</del> KV- Good FM. Strong ctx and diarrhea overnight, slowing down now. No LOF/VB. Baby moving more since on monitor. Reactive NST. 06/14/25 <del>?</del> 37w 1d 202 lb (+34 lb) 129/89 1+ <del>?</del> Negative 153 38 <del>?</del> KV- Good FM. Irregular ctx. No LOF/VB. Still having some RUQ pain and flashers. Getting repeat PIH labs today. 06/21/25 <del>?</del> 38w 1d 205 lb 4 oz (+37 lb 4 oz) 135/84 2+ <del>?</del> Negative 130 40 Cephalic 3 <del>?</del> 70 -2 KW- no vb/lof/ctx. good fm. induction set up for 39 weeks for ama. pre e labs today NST FHR Rate Baby A Baseline: 130 Variability:: Moderate Accelerations:: 15 x 15 Decelerations:: None NST Reactive:: Yes FHR Category:: Category I Uterine Activity:: irregular ROS Constitutional Constitutional: Reports systems reviewed and no addt'l complaints, except as documented Eyes Eyes: Denies change in vision ENT HEENT: Reports systems reviewed and no addt'l complaints, except as documented; Denies headache(s) Cardiovascular Cardiovascular: Reports systems reviewed and no addt'l complaints, except as documented; Denies chest pain or dyspnea Respiratory/Chest Respiratory/Chest: Reports systems reviewed and no addt'l complaints, except as documented Gastrointestinal Gastrointestinal: Reports systems reviewed and no addt'l complaints, except as documented; Denies abdominal pain Genitourinary Genitourinary: Reports systems reviewed and no addt'l complaints, except as documented, contractions Details: present (irregular) and movement Details: present; Denies dysuria or genital lesions Musculoskeletal Musculoskeletal: Reports systems reviewed and no addt'l complaints, except as documented Neurologic Neurologic: Reports systems reviewed and no addt'l complaints, except as documented Endocrine Endocrinology: Reports systems reviewed and no addt'l complaints, except as documented Vital Signs Vital Signs Vital Signs: 06/26/25 21:52 06/26/25 21:52 06/26/25 21:57 Temperature Temperature Source Pulse Rate 65 Respiratory Rate Blood Pressure 140/84 H BP Systolic 140 BP Diastolic 84 Pulse Ox 98 06/26/25 21:57 06/26/25 21:58 06/26/25 21:58 Temperature 98.8 F Temperature Source Temporal Pulse Rate 67 Respiratory Rate Blood Pressure BP Systolic BP Diastolic Pulse Ox 06/26/25 21:58 06/26/25 22:25 06/26/25 22:25 Temperature Temperature Source Pulse Rate 63 Respiratory Rate 18 Blood Pressure 142/90 H BP Systolic 142 BP Diastolic 90 Pulse Ox 06/26/25 22:56 06/26/25 22:56 06/26/25 23:12 Temperature Temperature Source Pulse Rate 66 Respiratory Rate Blood Pressure 161/90 H 156/86 H BP Systolic 161 156 BP Diastolic 90 86 Pulse Ox 06/26/25 23:12 06/27/25 00:03 06/27/25 00:03 Temperature Temperature Source Pulse Rate 64 66 Respiratory Rate Blood Pressure BP Systolic BP Diastolic Pulse Ox 98 06/27/25 00:06 06/27/25 00:06 06/27/25 00:06 Temperature Temperature Source Temporal Pulse Rate 76 Respiratory Rate Blood Pressure 135/88 H BP Systolic 135 BP Diastolic 88 Pulse Ox 06/27/25 00:06 06/27/25 00:06 06/27/25 02:18 Temperature 98.5 F Temperature Source Pulse Rate Respiratory Rate 16 16 Blood Pressure BP Systolic BP Diastolic Pulse Ox 06/27/25 02:19 06/27/25 02:19 06/27/25 02:27 Temperature 97.9 F Temperature Source Pulse Rate 68 Respiratory Rate Blood Pressure 135/82 H BP Systolic 135 BP Diastolic 82 Pulse Ox 06/27/25 02:27 06/27/25 04:15 06/27/25 04:15 Temperature Temperature Source Temporal Pulse Rate 67 Respiratory Rate Blood Pressure 138/84 H BP Systolic 138 BP Diastolic 84 Pulse Ox 06/27/25 04:15 06/27/25 04:15 06/27/25 04:15 Temperature 98.2 F Temperature Source Temporal Pulse Rate Respiratory Rate Blood Pressure BP Systolic BP Diastolic Pulse Ox 98 06/27/25 04:15 06/27/25 06:05 06/27/25 06:05 Temperature Temperature Source Pulse Rate 73 Respiratory Rate 18 Blood Pressure 138/83 H BP Systolic 138 BP Diastolic 83 Pulse Ox 06/27/25 06:05 Temperature 98.2 F Temperature Source Pulse Rate Respiratory Rate Blood Pressure BP Systolic BP Diastolic Pulse Ox Weight Weight: 208 lb Body Mass Index (BMI) 38.0 PRE- weight 160 lb PRE- Body Mass Index 29.4 (BMI) Physical Exam Const alert, oriented x3, no apparent distress and healthy appearing HEENT normocephalic and moist oral mucous membranes Head and Scalp: atraumatic Neck full ROM, no lymphadenopathy, supple and thyroid normal General: trachea midline Lymph Lymphatic: no lymphadenopathy noted Chest inspection of chest normal Resp normal respiratory effort Cardio regular rate GI soft to palpation and non-tender GI Narrative: gravid Inspection: gravid external exam normal Manual OB Exam: estimated gestational size appropriate, presentation cephalic, dilated, effaced and station Extremity normal to inspection General Extremity: Negative for edema Skin no rashes or lesions noted Neuro no focal motor deficits and deep tendon reflexes 2+ bilaterally Motor Exam: strength 5/5 throughout and clonus absent Psych mental status grossly normal Labs Labs Labs: Blood Type A POSITIVE Antibody Screen NEGATIVE Hct, (37-47) 43.1 % Hgb, (12.0-15.0) 14.7 g/dL Pap Smear Negative Obstetrics Ultrasound Syphilis Total Ab, (Nonreactive) Nonreactive Rubella IgG Antibody, (Nonreactive) REAC Hep Bs Antigen, (Nonreactive) Nonreactive Hepatitis C Antibody, (Nonreactive) Nonreactive Chlamydia DNA (GEETA), (Negative) Negative N.gonorrhoeae DNA (GEETA), (Negative) Negative HIV 1&2 Antibody, (Nonreactive) Nonreactive Glucose 1 Hr 50 gm, (70-140) 142 mg/dL H Gest Glucose Tolerance mg/dL Group B Strep DNA, (Negative) Negative Rhogam given: No Assessment & Plan (1) Mild pre-eclampsia affecting third : (2) Impaired glucose tolerance in : COMMENT: passed 3 hour (3) Trauma during : COMMENT: Minimal trauma per history and symptoms. Reactive nonstress test and patient is Rh+. Recommended routine follow-up. Will discharge to home. (4) UTI in : QUALIFIERS: Trimester: second trimester Qualified Code(s): O23.42 - Unspecified infection of urinary tract in , second trimester COMMENT: +UA. Rx macrobid. Culture negative (5) Supervision of high-risk : QUALIFIERS: Trimester: second trimester Qualified Code(s): O09.92 - Supervision of high risk , unspecified, second trimester COMMENT: PRR , ROSE 07/04/25, boy Checo Riley, Medardo (6) : QUALIFIERS: Weeks of gestation: 38 weeks Qualified Code(s): Z3A.38 - 38 weeks gestation of COMMENT: NIPT:low risk, male declined carrier testing. anatomy nl. GBS neg (7) History of miscarriage, currently : (8) Advanced maternal age (AMA) in : COMMENT: deliver at 39-40 weeks. patient prefers 39 weeks (jun 27) (9) Obesity affecting : QUALIFIERS: Trimester: second trimester Obesity type affecting : unspecified obesity Qualified Code(s): O99.212 - Obesity complicating , second trimester COMMENT: HgbA1c PLAN: Plan Patient presents IOL, plan management for with pitocin/AROM. Pain management: plans epidural. GBS negative. Management of any complications: preeclampsia I have reviewed the [facility] and made any clinically relevant updates.
[2025-06-27] MEDS: 0.9% Saline Lock 10 ML Syringe IV (08:58)
[2025-06-27] MEDS: Oxytocin 15 Units/NS 250ml 15 UNITS/250 ML IV.SOLN 2 UNITS IV (08:58)
[2025-06-27] MEDS: Lactated Ringers 1,000 ML 50 ML IV (08:59)
[2025-06-27] MEDS: fentaNYL-bupivacaine (epidural) 100 ML BAG EPIDURAL (13:35)
--- NOTE | 2025-06-27 15:12 | EX.PCM.OBVAG ---
Assessment & Plan (1) Mild pre-eclampsia affecting third : (2) Impaired glucose tolerance in : COMMENT: passed 3 hour (3) Trauma during : COMMENT: Minimal trauma per history and symptoms. Reactive nonstress test and patient is Rh+. Recommended routine follow-up. Will discharge to home. (4) UTI in : QUALIFIERS: Trimester: second trimester Qualified Code(s): O23.42 - Unspecified infection of urinary tract in , second trimester COMMENT: +UA. Rx macrobid. Culture negative (5) Supervision of high-risk : QUALIFIERS: Trimester: second trimester Qualified Code(s): O09.92 - Supervision of high risk , unspecified, second trimester COMMENT: PRR , ROSE 07/04/25, boy Abad PC Shlomo Checo, Medardo (6) : QUALIFIERS: Weeks of gestation: 38 weeks Qualified Code(s): Z3A.38 - 38 weeks gestation of COMMENT: NIPT:low risk, male declined carrier testing. anatomy nl. GBS neg (7) History of miscarriage, currently : (8) Advanced maternal age (AMA) in : COMMENT: deliver at 39-40 weeks. patient prefers 39 weeks (jun 27) (9) Obesity affecting : QUALIFIERS: Trimester: second trimester Obesity type affecting : unspecified obesity Qualified Code(s): O99.212 - Obesity complicating , second trimester COMMENT: HgbA1c (10) History of pre-eclampsia in prior , currently : COMMENT: BP this and baseline labs wnl. Maternal Data Information ROSE Calculator Estimated Delivery Date Method Current WG Current Estimate 07/04/25 LMP (Certain) 39w 0d Other Estimates 07/07/25 Ultrasound #1 38w 4d Vaginal Delivery Maternal Presentation Maternal Presentation: see assessment and plan Vaginal Delivery Information Procedure Performed: Vacuum Assisted Vaginal Delivery Station at time of placement: -3 Number of vacuum pulls: 3 Number of vacuum pop offs: 3 Length of time vacuum on: 05:00 Surgeon/Practitioner: Gaby Trimble Date of Procedure: 06/27/25 Pre-Procedure Diagnosis: see assessment and plan Post-Procedure Diagnosis: same Type of anesthesia: Epidural Estimated Blood Loss: 200 Findings Description of procedure: Patient began pushing, developed a bradycardia, so deciision was made to place a vacuum. the vacuum wa splaced, and it was dificult ot maintian suction due to the amount of hair and the difficult maternal explusion effort. there were four pulls with three pop offs and then Finally she delivered the head in the EVELYN presentation. The head was delivered atraumatically . The anterior and posterior shoulders delivered without complication followed by the rest of the and the was placed on the maternal abdomen. Delayed cord clamping was employed for approximately 60 seconds. Cord was clamped and cut and gentle traction was applied to the cord and the placenta delivered spontaneously immediately following it was noted to be intact with three-vessel cord. The perineum and vagina were inspected and noted to have no laceration. EBL was 200. Patient and infant tolerated delivery well. Presentation: Vertex Placental Delivery Description: Spontaneous Specimen collected: Yes Description of specimen(s) removed: placenta Organizational Consultant shipping clerk: No Post Vaginal Deli Medications given after delivery: Other (pitocin) Complication Complications: No Multi Select Codes Urinary/Genital Urinary/Genital CPT Codes: 36294 Vaginal Delivery [facility]
--- NOTE | 2025-06-27 15:20 | DCINST_ITS ---
Discharge Instructions DC O2, CPAP, BIPAP needs Home O2 Discharge instructions: No Dressing / Incision Discharge Activity: Return to Normal Activity, May Not Drive (while taking narcotic pain medications.) and May Shower May resume sexual activity in: 4-6 weeks Dressing / Incision Call your doctor if your incision/area has: Continuous Slow Oozing, Sudden Increased Bleeding, Increased Pain/ Swelling, Increased Redness and Foul Smelling Discharge Follow Up Care Please Follow Up With: Gaby Trimble MD When: Call [phone] to make an appointment with your doctor in 6 weeks. If you had elevated blood pressure or 4th degree laceration, you will need to be seen in 2 weeks. Test Results: Test results from this visit will be discussed in further detail at your follow- up appointment, if applicable. Discharge Plan Admission Admit Date/Time: 06/27/25 01:40 Attending Provider: Gaby Trimble Primary Care Provider: Vasquez Escobar Discharge Orders/Prescriptions Prescriptions: No Action PNV-Rhinelander 28-1-300 mg capsule 1 cap PO DAILY aspirin 81 mg tablet 81 mg PO DAILY methimazole 5 mg tablet 2.5 mg PO .every other day Qty: 15 2RF Referrals / Follow Up: Vasquez Escboar MD [Primary Care Provider, Family Practice]
[2025-06-27] MEDS: Oxytocin 15 Units/NS 250ml 15 UNITS/250 ML IV.SOLN 83 UNITS IV (15:32)
[2025-06-28 00:50] VITALS: BP 136/79; PULSE 83; RESP 16; TEMP 36.7; O2SAT 98
[2025-06-28 04:30] VITALS: BP 128/88; PULSE 79; RESP 14; TEMP 36.6; O2SAT 98
--- NOTE | 2025-06-28 07:32 | PN.OBGYN_ITS ---
Subjective Subjective Patient doing well without complaints. Tolerating PO. Ambulating and voiding without difficulty. Feeding well. Denies chest pain, shortness of breath, calf pain/swelling, fevers, chills, lightheadedness. Objective Data Objective Data Vital Signs: Vital Signs Temp Pulse Resp BP Pulse Ox O2 Del Method 97.9 F 79 14 128/88 H 98 Room Air 06/28/25 04:30 06/28/25 04:30 06/28/25 04:30 06/28/25 04:30 06/28/25 04:30 06/28/25 04:30 Oxygen Delivery Method Room Air Weight: 208 lb Body Mass Index (BMI) 38.0 Intake & Output: Intake and Output for Last 24 Hours 06/26/25 06/27/25 06/28/25 23:59 23:59 23:59 Intake Total 100 / 100 1252.63 / 1252.63 Output Total 100 / 100 1600 / 1600 200 / 200 Balance 0 / 0 -347.37 / -347.37 -200 / -200 Lab / Micro Data 06/26/25 23:30 06/26/25 23:30 ROS Constitutional Constitutional: Denies chills, fatigue, fever(s), poor appetite or weakness Eyes Eyes: Denies blurry vision, change in vision, seeing flashes or spots in vision ENT HEENT: Denies dizziness, headache(s), loss taste/smell or sore throat Cardiovascular Cardiovascular: Denies chest pain, dizziness, dyspnea, irregular heart rhythm, palpitations or rapid heart rate Respiratory/Chest Respiratory/Chest: Denies chest tightness, cough, dyspnea or breast pain Gastrointestinal Gastrointestinal: Denies abdominal pain, constipation or vomiting Genitourinary Genitourinary: Denies dysuria or flank pain Musculoskeletal Musculoskeletal: Denies difficulty walking, joint pain, limited range of motion or numbness Neurologic Neurologic: Denies abnormal movements, abnormal speech, dizziness, numbness, seizure-like activity or syncope Psychiatric Psychiatric: Denies anxiety, behavioral changes, change in appetite, confusion, depression or suicidal thoughts Physical Exam Const alert, oriented x3 and no apparent distress General Appearance: cooperative and comfortable Resp normal respiratory effort Cardio regular rate GI normal to inspection, nondistended, normoactive bowel sounds GI Narrative: uterus is firm below umbilicus Palpation: soft Back/Spine no CVA tenderness and thoraco-lumbar ROM normal Extremity normal to inspection, no clubbing, cyanosis or edema, no calf tenderness and no pedal edema Psych mental status grossly normal, thought process normal, cooperative, affect normal, speech normal, activity/motor behavior normal, denies homicidal ideation and denies suicidal ideation Assessment & Plan (1) Mild pre-eclampsia affecting third : (2) Impaired glucose tolerance in : COMMENT: passed 3 hour (3) Trauma during : COMMENT: Minimal trauma per history and symptoms. Reactive nonstress test and patient is Rh+. Recommended routine follow-up. Will discharge to home. (4) UTI in : QUALIFIERS: Trimester: second trimester Qualified Code(s): O23.42 - Unspecified infection of urinary tract in , second trimester COMMENT: +UA. Rx macrobid. Culture negative (5) Supervision of high-risk : QUALIFIERS: Trimester: second trimester Qualified Code(s): O09.92 - Supervision of high risk , unspecified, second trimester COMMENT: PRR , ROSE 07/04/25, boy Abad PC Checo Keenan, Medardo (6) : QUALIFIERS: Weeks of gestation: 38 weeks Qualified Code(s): Z 3A.38 - 38 weeks gestation of COMMENT: NIPT:low risk, male declined carrier testing. anatomy nl. GBS neg (7) History of miscarriage, currently : (8) Advanced maternal age (AMA) in : COMMENT: deliver at 39-40 weeks. patient prefers 39 weeks (jun 27) (9) Obesity affecting : QUALIFIERS: Trimester: second trimester Obesity type affecting : unspecified obesity Qualified Code(s): O99.212 - Obesity complicating , second trimester COMMENT: HgbA1c (10) Needle phobia: (11) History of pre-eclampsia in prior , currently : COMMENT: BP this and baseline labs wnl. (12) Hot thyroid nodule: COMMENT: on methimazole, repeat labs in february.
[2025-06-28 08:30] VITALS: BP 131/82; PULSE 96; RESP 16; TEMP 36.6; O2SAT 98
--- NOTE | 2025-06-28 11:05 | CASEMGMT ---
Social Work Assessment Labor and Delivery Unit Patient Address: [place] [address] Phone number: [phone] Date of Referral: 06/27/25 Time of Referral: 1849 ? Referred By: Gaby Trimble MD Date of Intervention: 06/28/25 Time of Intervention: 1105 Reason for Referral:?anxiety, depression, traumatic delivery History obtained from: medical records, mother of baby (MOB), father of baby (FOB) Household composition: MOB reports that currently living in the home are self, 17 year old son, 3 year old daughter, Jan, and baby (Mason Munoz) to be added to home when ready for discharge. MOB states that housing is safe and secure. Patient's parent/guardian status:?MOB reports that FOB is , Medardo Collins. MOB and FOB have been together for 7 years and for 5 years. Medical History: RUSSELL is a 35 year old female who is 4, para 2 now 3 following labor and delivery of . RUSSELL received routine care during through [facility]. RUSSELL presented to hospital for an induction due to pre-eclampsia at 39 weeks gestation on 06/27/25. [place] baby boy, Mason Munoz, was born weighing 7lbs, 6oz with apgars of 7 and 9 at one and five minutes of life respectively. RUSSELL is breast feeding baby and baby will be followed by Dr Medrano for pediatrics. Educational Status:?MOB is a stay at home mother. Financial Status: MOB is a stay at home mother as this reportedly works best for RUSSELL's current family dynamics at this time. Infant Supplies: MOB has obtained all necessary baby supplies, including: car seat, safe sleep space, clothes, diapers, and wipes. MOB reports to have more than enough. Childcare/Caregiver(s):?MOB is a stay at home mother and states that MOB's mother will help with childcare when needed. Transportation:?MOB reports that her and FOB both have adequate and reliable transportation. Programs/Agencies Involved: MOB and FOB deny current agency involvement. MOB stated her and FOB have gone through marriage counseling in the past. Children Services/Legal Issues:?MOB denies any children's services or legal issues currently or in the past. Behavioral Health Issues: ??Mental Health History:?MOB reports having anxiety and depression and being involved in individual counseling in the past. MOB reports feeling as if she feels relief following delivery of baby.? Substance Use History:?N/A? Family History:?N/A? Drug Screens: N/A Family/Social Stressors:? MOB and FOB both deny any specific concerns or stressors at this time. MOB and FOB both stated stress surrounding the of their 3 year old daughter due to MOB not having a job at the time. FOB states this is not the case now due to MOB and FOB making the decision together to have MOB stay at home with the children. Support Systems: MOB states having the most support from MOB's mother and MOB's best friend. Depression/Shaken Baby/Safe Sleeping: SW educated MOB on signs and symptoms of baby blues and mood and anxiety disorders to be mindful of during this period. MOB states that she has never experienced any of these symptoms following her other deliveries, but she is aware of what to be mindful of during this period. MOB states that if she were to struggle with her mental health during this time, she would talk to FOB and her OB. SW educated MOB and FOB on shaken baby prevention and ABCs of safe sleep; they expressed understanding. ASSESSMENT:? MOB and baby admitted following labor and delivery. MOB has mental health history of anxiety and depression. This is MOB's third child and FOB's second child; MOB has a 17 year old son from a previous relationship. MOB has no legal history or agency involvement. MOB is open to counseling as MOB and FOB did some marriage counseling at the beginning of their marriage. MOB observed feeding baby upon entrance and MOB was observed being concerned for baby upon baby leaving for circumcision procedure. FOB left with baby for this procedure and MOB was observed being relieved when baby returned to the room. Of note, procedure was unable to be completed at this time and a referral to urology will be made. FOB was observed holding and caring for baby appropriately with changing baby's diaper and MOB was also observed holding and caring for baby appropriately. MOB and FOB both talkative and open with SW during completion of assessment; both receptive to resources provided and discussed. Safe Plan of Care for infant related to substance use:? N/A PLAN:?? No other services requested or indicated. MOB and baby to be discharged when medically ready. Parents were provided literature regarding: signs and symptoms of baby blues and mood and anxiety disorders, Help Me Grow, shaken baby prevention, ABCs of safe sleep and a list of county resources that are available for them should any needs present themselves. Usha Chavez, COMMUNICATIONS ATTENDANT, PAINTER FOREMAN
--- NOTE | 2025-06-28 12:41 | NURSING ---
pt in shower
[2025-06-28 13:30] VITALS: BP 135/84; PULSE 85; RESP 16; TEMP 36.4
[2025-06-28 17:39] VITALS: BP 130/72; PULSE 80; RESP 16; TEMP 36.6
== END 2025-06-28 18:35 | disposition home or self-care (01) | DRG 807 ==
LOC: WPOUT 01:47 → WP 01:47
PROVIDERS: Obstetrics & Gynecology; Admitting Provider Obstetrics & Gynecology; PCP Family Medicine; Referring Provider Obstetrics & Gynecology; Visit Provider Obstetrics & Gynecology
DX: O76 Abnormality in fetal heart rate and rhythm complicating labor and delivery (principal); Z37.0 Single live birth; O14.04 Mild to moderate pre-eclampsia, complicating childbirth; E04.1 Nontoxic single thyroid nodule; O99.214 Obesity complicating childbirth; Z3A.38 38 weeks gestation of pregnancy; Z79.82 Long term (current) use of aspirin; Z87.440 Personal history of urinary (tract) infections; O99.284 Endocrine, nutritional and metabolic diseases complicating childbirth; O99.344 Other mental disorders complicating childbirth; F40.231 Fear of injections and transfusions
CPT/HCPCS: 59025; 59050; 82565; 82570; 84112; 84156; 84450; 84460; 84550; 85027; 86780; 86850; 86900; 86901; 99221; A4216; G0378